=== PATIENT | female | born 1990 | race African-American/Black ===

== ENCOUNTER 2019-12-26 14:37 | Inpatient (IN) | payer OTHER ==
--- OUTSIDE RECORDS SUMMARY | 2019-12-26 14:46 | XMS ---
:1990 [facility] Care Team Providers Name Role Phone MD NIKI Unavailable Unavailable Ivett Adams Unavailable Unavailable Kit Adams Unavailable Unavailable Kit Adams Unavailable Unavailable Kit Adams Unavailable Unavailable Raegan COOL Unavailable Unavailable Re-disclosure Warning The records that you are about to access may contain information from federally- assisted alcohol or drug abuse programs. If such information is present, then the following federally mandated warning applies: This information has been disclosed to you from records protected by federal confidentiality rules (42 CFR part 2). The federal rules prohibit you from making any further disclosure of this information unless further disclosure is expressly permitted by the written consent of the person to whom it pertains or as otherwise permitted by 42 CFR part 2. A general authorization for the release of medical or other information is NOT sufficient for this purpose. The Federal rules restrict any use of the information to criminally investigate or prosecute any alcohol or drug abuse patient.The records that you are about to access may contain highly sensitive health information, the redisclosure of which is protected by Article 27-F of the [facility] Public Health law. If you continue you may haveaccess to information: Regarding HIV / AIDS; Provided by facilities licensed or operated by the [facility] Office of Mental Health; or Provided by the [facility] Office for People With Developmental Disabilities. If such information is present, then the following [facility] mandated warning applies: This information has been disclosed to you from confidential records which are protected by state law. State law prohibits you from making any further disclosure of this information without the specific written consent of the person to whom it pertains, or as otherwise permitted by law. Any unauthorized further disclosure in violation of state law may result in a fine or mcc sentence or both. A general authorization for the release of medical or other information is NOT sufficient authorization for further disclosure. Allergies and Adverse Reactions Type Description Substance Reaction Status Data Source(s ) Drug allergy No Known Allergies No Known Allergies [facility] Encounters Encounter Providers Location Date Indications Data Source(s ) Emergency Attender: 11/11/2019 [facility] th - ERAttender: Ivett 01:54:19 PM EDT [facility] PAAdmitter: - 11/11/2019 Leonardo CALVERT 06:26:00 PM EDT Patient discharged. Emergency Attender: Joe Carlin 11/10/2019 02:05:00 [facility] ERAdmitter: Joe 07:31:00 PM EDT Raegan COOL Patient discharged. Medications Medication Brand Start Product Dose Route Administrative Pharmacy [facility] Indications Reaction Description Data Name Date Form Instructions Instructions Source(s) Methocarbam Robaxi .0 Oral Nuv ance ol 750 MG n-750 2020 mg 750 mg, = 1 tab, Oral, TID, X 5 day(s), # 15 tab, 0 Refill(s), Pharmacy: [facility], 1 tab Oral TID,x5 day(s), 163, 11/11/19 14:54:00 EDT, Height/Length Measured, cm, 73.6, 11/11/19 14:54:00 EDT, Clinical Weight, kg Health - Oral Tablet oral 06:11: [place] Robaxin-750 tablet 00 PM Hospi [facility] oral tablet EDT Center Insurance Providers Payer name Policy type Policy ID Covered Covered green party's Policy P zita / Coverage green party ID relationship to [employer] ormation type nova BEACON [id number] SP [id number] METROPLUS BEACON [id number] SP [id number] METROPLUS COMM [id number] Self [id number] COMM [id number] Self [id number] Results ID Date Data Source [id number] 11/30/2019 06:14:00 AM EDT [facility] Name Value Range Interpretation Code Description Data Grace rce(s) Supporting Document(s ) SARS-CoV-2 [facility] RNA Resp Ql LAXMI+probe This lab was ordered by Fabian and sury rted by [facility]. ID Date Data Source [id number] 11/11/2019 05:45:00 PM EDT [facility] Patient Name: ABHINAV LESTER: [id number] Computed TomographyACCESSION EXAM DATE/TIME PROCEDURE ORDERING PROVIDER [id number] 11/11/2019 17:23 EDT CTA Chest Abdomen Ivett Adams PA-C Auth (Verified) Pelvis J.Reason For Exam(CTA Chest Abdomen Pelvis) Other (Add Reason to Special Instructions)ReportPROCEDURE: Computed Tomographic Angiography Chest With ContrastPROCEDURE: Computed Tomographic Angiography Abdomen and Pelvis With ContrastCLINICAL HISTORY: Chest Pain, S hortness of Breath, Lower Abdominal PainSCRIPT INFORMATION: CP, SOB, lower a bdominal painCOMPARISON: None.TECHNIQUE:Computed Tomographic Adelaida ography of the abdomen, pelvis and chest was performed with intravenous administratio n of contrast timed to maximum opacification of the aorta and its branches. Enteric c ontrast was not administered for this exam. Two dimensional as well as three dimensi onal reconstructions were performed.FINDINGS:CHEST VASCULATURE:The re is adequate enhancement of the pulmonary arterial tree without filling defect to suggest pulmonary embolism.The thoracic aorta is normal in course and caliber without evidence of dissection or aneurysm.ABDOMEN/PELVIS VASCULATUREThe a bdominal aorta is normal in caliber. There is no stenosis or significant atheroscleros is.The aortic branch vessels are patent. The common iliac, internal and external nehemiah c arteries are patent bilaterally.CTA CHEST:ROOT OF NECK:No abnormality detect ed.LUNGS/PLEURA:There is a 5 mm pulmonary nodule in the right upper lobe along the superior aspect of the major fissure on image 30. There are groundglass and reti culonodular opacities in the right upper lobe and right lower lobe. There is a 2 mm no dule in the right lower lobe on image 54.There is no pleural effusion or pneum othorax.TRACHEA/BRONCHI:The trachea and central bronchi are patent.LYMPH NODES:T here is no significant axillary, mediastinal or hilar lymphadenopathy.HEART/PERICARDI UM:The heart is normal in size. The pericardium is unremarkable.Coronary art isaac calcification: Absent.ESOPHAGUS:The esophagus is unremarkable.CTA ABDOMEN / PELVIS:LIVER:The liver is normal in size and contour.There is no enhancing mass ident ified and the portal vein is patent.BILIARY SYSTEM:There is no biliary ductal dilata tion. Gallbladder is unremarkable.SPLEEN/PANCREAS:The spleen is grossly unremarkable.The pancreas is grossly unremarkable.ADRENALS/KIDNEYS:Th e adrenals are unremarkable.The kidneys are unremarkable.BOWEL:There is no evidence for small bowel obstruction.There is no evidence for free intraperitoneal air.Th ere is a large amount retained stool throughout the large bowel. 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 Unremarkable CTA of the thoracic and abdominal aorta.2. Right upper lobe and right lower lobe pulmonary nodu les. Follow-up is advised as per Fleischner Society criteria.Fleischner Society Foll ow-Up Guidelines:Multiple solid pulmonary nodules with the largest nodule measurin g <6 mm:Low-risk patient (minimal or absent smoking history and no other known risk factors):No routine follow up.High-risk patient (history of smoking or other kno wn risk factors):Optional noncontrast chest CT at 12 month.Reference:Guidelines for Management of Incidental Pulmonary Nodules Detected on CT Images: From the Fleischn er Society 2017. Kalin AlMahon et al. Radiology 2017 284:1, 228-243.http://pubs.rsna.org/doi/abs/10. 1148/radiol.[email or web address]. Multiple groundglass opacities in the right upper lobe and ri ght lower lobe, nonspecific. Infectious etiology not excluded.4. Constipation.5. Postsurgical changes of the bowel.Thank you for allowing [facility] to participate in the evaluation of this patient. Final Dictated: Dimitrios Costa MD.11/11/19 17:31Signed: Dimitriso Costa MD 11/11/19 17:4 5Transcribed by: JULIANNA Name Value Range Interpretation Code Description Data Grace rce(s) Supporting Document(s ) ID Date Data Source [id number] 11/11/2019 04:23:00 PM EDT [facility] Patient Name: JAZMIN LESTERN: [id number] General DiagnosticACCESSION EXAM DATE/TIME PROCEDURE ORDERING PROVIDER [id number] 11/11/2019 16:17 EDT XR Chest Portable Ivett Adams PA-C (Verified) AbhijeetReason For Exam(XR Chest Portable) Chest PainReportPROCEDURE: Radiograph Portable Chest 1 ViewCLINICAL HISTORY: Chest PainSCRIPT INFORMATION: CXRCOMPARISON: None.TECHNIQUE:Anteropos terior radiographic view of the chest was performed.FINDINGS:The lungs are clear.T here is no evidence for pleural effusion.There is no evidence for pneumo thorax.The heart is unremarkable.The mediastinum and hilar soft tissues are u nremarkable.The bony thorax is unremarkable.IMPRESSION:Normal chest rad iograph.Thank you for allowing [facility] to participate in the evaluation of this patient. Final Dictated: Jose Luis Chino MD. 0 11/11/19 16:22Signed: Jose Luis Chino MD 11/11/19 16:23Transcribed by: YLNN Name Value Range Interpretation Code Description Data Grace rce(s) Supporting Document(s ) ID Date Data Source [id number] 11/17/2019 12:00:00 AM EDT [facility] [phone] Microbiology - Blood CulturesPROCEDURE: Culture,Blood RCE: Blood BODY SITE:COLLECTED DATE/TIME: 15:54 EDT RECEIVED DATE/TIME: 11/11/2019 20:45 EDTSTART DATE/TIME: 11/11/2019 20:45 EDT FREE TEXT SOURCE:ORDERING PHYSICIAN: Ivett EstradaFINAL REPORTSFinal Report []Reported Date/Time: 11/17/2019 00:00 ED TNo growth at 5 days.PRELIMINARY REPORTSPreliminary Report []Reported Date/Time: 11/16/2019 00:00 EDTNo growth at 4 days.Preliminary Report []Reported Date /Time: 11/15/2019 00:00 EDTNo growth at 3 days.Preliminary Report []Reported Date /Time: 11/14/2019 00:00 EDTNo growth at 2 days.Preliminary Report []Reported Date /Time: 11/13/2019 00:00 EDTNo growth at 1 day.Preliminary Report []Reported Date/ Time: 11/12/2019 16:01 EDTBlood culture incubating < or = 24 hours; negative to date Name Value Range Interpretation Code Description Data Grace rce(s) Supporting Document(s ) ID Date Data Source [id number] 11/11/2019 04:17:00 PM EDT [facility] Name Value Range Interpretation Description Data Sup porting Code Source(s) Document(s ) Lactic 0.8 0.9-2.0 LO [place] Acid Lvl mmol/L [facility] ID Date Data Source [id number] 11/11/2019 04:25:00 PM EDT [facility] UA Microscopic added by Discern joshua Dawson to an Abnormal Macroscopic Result. Name Value Range Interpretation Description Data Sup porting Code Source(s) Document(s ) UA WBC None Seen NO [facility] UA RBC None Seen NO [facility] UA Bacteria None Seen AB [facility] UA Epithelial None Seen NO [facility] ID Date Data Source [id number] 11/11/2019 04:11:00 PM EDT [facility] Name Value Range Interpretation Description Data Sup porting Code Source(s) Document(s ) U Amph Not Detected NO [facility] Substance of abuse cutoff levels:Ampheta mine...........................1000 mA/minBarbiturate....................... .....300 mA/minBenzodiazepine.................... .....200 mA/minCannibinoid....................... ......50 mA/minCocaine........................... .....300 mA/minOpiates........................... .....300 mA/minPhencyclidine (PCP).....................25 mA/minMetha done..............................300 mA/minPropoxypene....................... .....300 mA/minPlease note: This is a urine screening test only.Positive results are presumptive and are not confirmed by a secondary method. Unconfirmed screening results are to be used only for medical purposes.Result created by vocaltap rule. U Kim Scr Not Detected NO [facility] Result created by vocaltap rule. U Benzodia Scr Not Detected NA [facility] Result created by vocaltap rule. U Cannab Scr Not Detected NO [facility] Result created by vocaltap rule. U Cocaine Scr Not Detected NO [facility] Result created by vocaltap rule. U Opiate Scr Not Detected NO [facility] This Opiate assay does NOT detect the se mi-synthetic opioids Oxycontin, Oxycodone, Percodan, or Percocet.Result created by vocaltap rule. U Phencyclidine Not Detected NO [facility] Result created by Discern rule. U Propoxyphene Not Detected NA [facility] Result created by Discern rule. U Methadone Not Detected NA [facility] Result created by Discern rule. ID Date Data Source [id number] 11/11/2019 04:05:00 PM EDT [facility] Name Value Range Interpretation Description Data Sup porting Code Source(s) Document(s ) UA Color Yellow NO [facility] UA Appear Clear AB [facility] UA pH 5.0-8.0 NO [facility] UA Spec Grav 1.024 1.005-1.030 NO [facility] UA Glucose Negative NO [facility] UA Ketones Negative NO [facility] UA Urobilinogen 0.2-1.0 NO [facility] UA Bili Negative NO [facility] UA Blood Negative NO [facility] UA Protein Negative NO [facility] UA Nitrite Negative NO [facility] UA Leuk Est Negative NO [facility] ID Date Data Source [id number] 11/11/2019 04:04:00 PM EDT [facility] Name Value Range Interpretation Code Description Data Grace rce(s) Supporting Document(s ) U beta Negative NO [facility] Internal QC is Valid. ID Date Data Source [id number] 11/17/2019 12:00:00 AM EDT [facility] [phone] Microbiology - Blood CulturesPROCEDURE: Culture,Blood RCE: Blood BODY SITE:COLLECTED DATE/TIME: 15:49 EDT RECEIVED DATE/TIME: 11/11/2019 20:45 EDTSTART DATE/TIME: 11/11/2019 20:45 EDT FREE TEXT SOURCE:ORDERING PHYSICIAN: Ivett EstrdaaFINAL REPORTSFinal Report []Reported Date/Time: 11/17/2019 00:00 ED TNo growth at 5 days.PRELIMINARY REPORTSPreliminary Report []Reported Date/Time: 11/16/2019 00:00 EDTNo growth at 4 days.Preliminary Report []Reported Date /Time: 11/15/2019 00:00 EDTNo growth at 3 days.Preliminary Report []Reported Date /Time: 11/14/2019 00:00 EDTNo growth at 2 days.Preliminary Report []Reported Date /Time: 11/13/2019 00:00 EDTNo growth at 1 day.Preliminary Report []Reported Date/ Time: 11/12/2019 16:01 EDTBlood culture incubating < or = 24 hours; negative to date Name Value Range Interpretation Code Description Data Grace rce(s) Supporting Document(s ) ID Date Data Source [id number] 11/11/2019 04:51:00 PM EDT [facility] Name Value Range Interpretation Code Description Data Grace rce(s) Supporting Document(s ) BNP 28 pg/mL 1-99 NO [facility] ID Date Data Source [id number] 11/11/2019 04:27:00 PM EDT [facility] Name Value Range Interpretation Code Description Data Grace rce(s) Supporting Document(s ) INR 1.2 ratio 0.8-1.2 NO [facility] Please note new reference range effectiv e 2019Indications INRProphylaxis of nieves ous thromo-embolism: Non-hip surgery...............................1. 5 - 2.5 Hip surgery................................. ..2.0 - 3.0Deep Vein Thrombosis or Pulmonary Embolism........2.0 - 3.0Prevention of s ystemic embolism in valvular heart disease, tissue prosthetic heart valvesor acute IN.......................................2.0 - 3.5Prevention of embolism in mechanical heartvalves or recurrent systemic embolism.............3.0 - 4.5 PT 13.4 second(s) 10.2-12.9 [facility] Please note new reference range effectiv e 2019 ID Date Data Source [id number] 11/11/2019 04:23:00 PM EDT [facility] Name Value Range Interpretation Description Data Sup porting Code Source(s) Document(s ) Troponin- <0.01 0.02-0.05 [place] I ng/mL [facility] ID Date Data Source [id number] 11/11/2019 04:17:00 PM EDT [facility] Name Value Range Interpretation Description Data Sup porting Code Source(s) Document(s ) Glucose Lvl 94 mg/dL 65-99 [facility] BUN 11.0 7.0-21.0 NO [place] mg/dL [facility] Creatinine 0.63 0.40-1.0 NO [place] mg/dL 0 [facility] BUN/Creat 17.5 7.0-29.0 NO [place] Ratio ratio [facility] Sodium Lvl 134 136-146 [place] mmol/L [facility] Potassium Lvl 5.0 3.5-5.1 NO [place] mmol/L [facility] Chloride 97 98-109 [place] mmol/L [facility] CO2 28 17-33 [place] mmol/L [facility] AGAP 9 5-15 NO [facility] Calcium Lvl 8.5 8.3-10.2 NO [place] mg/dL [facility] Total Protein 7.0 6.0-8.3 NO [place] gm/dL [facility] Albumin Lvl 3.4 3.7-5.3 [place] gm/dL [facility] Glob 3.6 2.0-4.5 NO [place] gm/dL [facility] A/G Ratio 0.9 1.0-2.2 [place] ratio [facility] Bili Total 0.3 0.4-1.1 [place] mg/dL [facility] Alk Phos 71 IU/L 30-125 [facility] AST 22 IU/L 10-35 NO [facility] ALT 21 IU/L 7-35 [facility] ID Date Data Source [id number] 11/11/2019 04:17:00 PM EDT [facility] Added by Discern Rule [id number] Name Value Range Interpretation Code Description Data Grace rce(s) Supporting Document(s ) eGFR-AA >90 >=60 [facility] mL/min/[address] The MDRD 4-Variable IDMS traceable Equat ion for non- individuals is used to calculate the estimated glomerul ar filtration rate (GFR). To estimate the GFR for Americans, multiply the Devunity ided GFR result by 1.16. The MDRD 4-Variable IDMS traceable Equation is validated in individuals 18 years of age or older. It is less accurate in patients with extremes of muscle mass, restriction of dietary protein, ingestion of creatine, extra-re nal metabolism of creatinine, or treatment with medications that affect renal tubul ar creatinine secretion.GFR Categories in Chronic Kidney Disease (CKD)GFR Category : GFR (mL/min/1.73 m2): Interpretation: G1 90 or greater Normal or high* G2 60-89 Mild decrease*G3a 45-59 Mild to moderate [id number] 30-44 Moderate to severe decreaseG4 15-29 Severe decreaseG5 14 or less Kidney failure eGFR-LAXMI >90 mL/min/1.73m2 >=60 NO [facility] The MDRD 4-Variable IDMS traceable Equat ion for non- individuals is used to calculate the estimated glomerul ar filtration rate (GFR). To estimate the GFR for Americans, multiply the prov ided GFR result by 1.16. The MDRD 4-Variable IDMS traceable Equation is validated in individuals 18 years of age or older. It is less accurate in patients with extremes of muscle mass, restriction of dietary protein, ingestion of creatine, extra-re nal metabolism of creatinine, or treatment with medications that affect renal tubul ar creatinine secretion.GFR Categories in Chronic Kidney Disease (CKD)GFR Category : GFR (mL/min/1.73 m2): Interpretation: G1 90 or greater Normal or high* G2 60-89 Mild decrease*G3a 45-59 Mild to moderate [id number] 30-44 Moderate to severe decreaseG4 15-29 Severe decreaseG5 14 or less Kidney failure ID Date Data Source [id number] 11/11/2019 04:09:00 PM EDT [facility] Name Value Range Interpretation Description Data Sup porting Code Source(s) Document(s ) Neut Auto 43.2 % 40.0-70.0 [facility] Lymph Auto 46.2 % 22.0-44.0 HI [facility] [place] Auto 7.8 % 4.0-11.0 NO [facility] Eos Auto 2.5 % 0.0-8.0 NO [facility] Baso Auto 0.3 % 0.0-3.0 NO [facility] Neut 2.1 1.8-7.7 NO [place] Absolute x10(3)/Health system Lymph 2.2 1.0-4.8 NO [place] Absolute x10(3)/[facility] system [place] 0.4 0.2-1.2 NO [place] Absolute x10(3)/Health system Eos Absolute 0.1 0.0-0.9 [place] x10(3)/Health system Baso 0.0 0.0-0.3 NO [place] Absolute x10(3)/Health system ID Date Data Source [id number] 11/11/2019 04:09:00 PM EDT [facility] Name Value Range Interpretation Description Data Sup porting Code Source(s) Document(s ) WBC 4.8 4.5-11.0 [place] x10(3)/Health system RBC 3.23 4.00-5.20 LO [facility] x10(6)/Health system Hgb 9.8 gm/dL 12.0-16.0 [facility] Hct 29.3 % 36.0-46.0 [facility] MCV 91 fL 80-100 NO [facility] MCH 30.5 pg 26.0-34.0 [facility] MCHC 33.5 31.0-37.0 NO [facility] gm/dL [facility] RDW 15.1 % 11.5-14.5 [facility] Platelet 342 150-350 NO [facility] x10(3)/Health system MPV 7.0 fL 7.4-10.4 [facility] ID Date Data Source [id number] 11/11/2019 04:09:00 PM EDT [facility] Patient Name: JAZMIN LESTERN: [id number] UltrasoundACCESSION EX AM DATE/TIME PROCEDURE ORDERING PROVIDER [id number] 11/11/2019 16:07 EDT US Venous Doppler Ivett Adams PA-C Auth (Verified) Lower Ext RAMESH J.Reason For Exam(US Veno us Doppler Lower Ext RAMESH) Swelling EdemaReportPROCEDURE: Ultrasound Duplex Scan of Lower Extremity Veins BilateralCLINICAL HISTORY: Bilateral Le g Pain and Swelling since 2 amSCRIPT INFORMATION: bilateral lower extremity v enous dopplerCOMPARISON: None.TECHNIQUE:Ultrasound evaluation two -dimensional imaging with graded compression and Doppler analysis and color flow Dopp ler imaging was performed on the deep veins of the bilateral lower extremities to in clude the common femoral (including saphenofemoral junction), femoral, popli teal, and calf veins.FINDINGS:Normal color flow, waveform pattern and compressibili ty are identified on voss scale and color Doppler interrogation. There is no evide nce for intraluminal thrombus. 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 to participate in the evaluation of this patient. Final Dictated: Matti COOL, Jose Luis Ortega 0 11/11/19 16:08Signed: Jose Luis Chino MD 11/11/19 16:09Transcribed by: DMK Name Value Range Interpretation Code Description Data Grace rce(s) Supporting Document(s ) ID Date Data Source [id number] 11/11/2019 03:34:00 PM EDT [facility] Name Value Range Interpretation Code Description Data Grace rce(s) Supporting Document(s ) [facility] PBt2oCvOZKsPru8R [facility] lWD0chmf7IE8QAB Center 9ebNguSbu0 MjIvRmlsd GIvD6AhARB jWTXem7Dd Pc6mvWSvCD 2HwMbryO2 vPU+SnXXfn +DP9YUMkq faU5tc8sTZ gYyZaWHED nOSYOv57MY NEN+eylgR rFyjZi8y9V f/32TVh0S 27ayKzMiod f63P/wXf/ wT7I3a1H6/ /k9/+Ms// uG//UP6+V/ +8Bf/ZfpZ n2f8/PFfbo /087z/Sz9 dxR3857l0+ ePf/+E//q f//N/9/PU/ +altYu3p5 f6TP/4v17M 8n3Rdn/kX Og7BmvHmk/ 16uy05etr h4xH3fjZ+Z //gb//qr/ /ALPHONSE/7jf/CEMENTING MACHINE OPERATOR /tOff/jXf /k3/4B9e2q flI/vX/13 f/UPf/6zn3 /6V//wz4U m6qFmhDC3e 7r6UOpp+S nPz//1v//b Pxf/uv+Xf /f3//xPf8c +taxPy+zz 587qWv/R3/ 2v/0485vM pckrvOf+Pf /b2lpa8qy 11qebyN//9 z587z+vwD /7Fv/g3/8e //nc//9HP TLN67d0zJb Hx/s2/+fs /d1LX4y//0 PUMP ASSEMBLER/zCm1Zq Nhf6///ucf /qu/+7f/7 uef/research program manager/+V/ /tCqM1Z4/ 9y/+1Z+Ldj 3+6m//+A/ +yV//7f/wl //sb/+rv9 5t2px3yApa /dTbxx1PL 64//+cf/CT q+vT88/d/ GN465pb+0x /+osk2qKH X3f/NrwGff /Is7Xy+pv V5x/n+fN2/ ysX88e39N zY1QKtF0/9 h8MVKFwlT JYQxOTzzUz U6sCgfjOk GGPZHtc8gV qyla1MFD6 EIZ3Z4/zPZ fMxk8vk7e jBmh/SpiR2 MyWHOT+MQ WAIqv2VNhF yq0tvlPDU 7PHsUkYMxO YzxyRwCzA 5VvwWYHdKn cQgwOfSp3 eNRZp0o0N4 RzUW/A5gd pz9b7PEMNn +twCdgyOb 8kN2iisdWM oMDgMmhzs /krwBmh/55 OASYHcon8 4mQm7D7QPC DlgNEve3T RRqJ90ZiE6 Q4XVtreTB S11XKJm2ID l2/BZgdyq fwkAezw/tA qlJQ1FB+Z /B4BLND/Uw OAWaHvJ/j 5GBMDs/6ZA 4BZof+KTw syyrPWi1Vb NnhfQSzfe M15/dhM8nu gV8CzvOsL +RPZvtGMs8 v76NHOure FXYwZofykQ MU/Qbvg2Z 2psyEb9x8B 46QVAn3fN IyiuG30J/h ZWHi8GCBr J3ltmlepfD A7FA+s7GD MTuk/f+Tgz H2pNltTrr A3DJ3ARpqp j6FZCxtPV 0N0xebrv5Z MDvU/R9yM BzB5ElAmig mtzaLTx6s dngzNIcAs0 P+xJ2KIAO 7PafZU1AUe T+n2fY0l8 SddN9iQ8v5 gskhvbmZ7 VSdfuf9OYp Vg3uGcSzf vUVy3hK+iQ y0mZ8rga6 LYx5qT36M8 MSLp269rZ Bmh/aZmR2M 1qUckht3U VcZz8XM5XF VNBh1YE2M Uuz42gSAbK md3wteHHD 5vA8Z+RZgd mf39fmDgg fM5UhG9mTa 7+LeYD044 PrYk7B05Dq Ravhx1mXM IDxA6gKlgF Q6s0P/JA4 QJbl8B7O5H 5yqM6PTpx KTy0jcYuPy 7OUlnm6tf /fgWk2cazh XmokDgNmh nfgqRVZ1UQ 4AZodHvwG ZXJF33bPCG 0qSfj4LrS 55rwXJwZgc 3zYP8nHwy uifyqMRzA4 qBoTgXA6j 9D2igVw/EG SdzW06w7S X3bOyPmP7E LPDO/fgEO Dr8C69+Shazia yfwmZTo+k MxFvgCQzM9 s8EtNDxB8 8CHTV7F4uC xgVKjgY7S ZQtgc2Gssh zUiY/8MOj QWoOTC6LSe vwmYrJuu8 N8h6halQMy 2qXRoIJmz uO0X18x7Ln C+ygNNqwP tqziw/186O HFPWfig00 TFn1hSp1xo exbfWCO1n oh0awUHn4r GZ0EduH7u xQqc3U8B33 q4Dmeau5e +7/t2thtLT DLbNOmaDc t978Uhuu4l cbg46OuMZ LK8CRcvL2R smnjNhmRe y5Y2fCiMGT 2aesxAMjc 0wcYHgUn2d OyJ4AJwHW DEUC45wbbF aW8IQOiue Kv446q9fi3 WGccMJPP7 jCDrJjLaIu Jolene/5nSu 4w4kmeuCe6 15jXesmMv b6bDcGUwZo Au+aDa95Z m0iGkAv1nI bEtp35UfL 1/w+cgcNYS OXn1n4hHu 9Qcsf0ZELw jS/ZkO6+d 5l67Pwz1MX ek2SroI4u Y2lLHlppox WobgOYHYo f6IIWgmmMG XZxoBml1V xNwCpZZ9CP jXXAcwOVb 7FyC1jNvMZ ulYHRe7BV HYou+pGDsb n3JMkfRfy naayfSOZq1 Esvx3AQlN KOxrCcO850 Y/tF3k5fh Dw40XoZXUN xrAnm0hjb +RgzA5W+yQ VO7EaXt3O mB2s/koOxu it5OdEZY1 9+5+UsIzZI ja5MTJR68 mTHIzZwSrZ 5GBMDu/Kr YI5BBRMEsF SpQxlxn75 kYYdT5nTFz daJdn6Ezg hN0FYSBXRc Xgj5n68mU MxpefHJjA3 N4ZPhmp1v YSQz5YZioT 7LPkWzuSQ 3rgR8M2T0O M1SZDF2FG ecjDmGcyef dIMZiOby5 8hm28CRTmu Fd7O4OJ1n D5qeRjk9GE 4WnHDln4d QoqRz3NV/M lYfZasb52 CeE964BNBN 3bo+i3A7G VQV9Ij7owj 6y2KRjwlW QTHS1cedKt 5GJNDf/Hungarian 9coT0cLZbT HwjS50R0K JwZgdbBFLD pip1I1dCk 9IMDvYQpoc jNnhnYKwf YEUol9aN7F mY3Yo+h3A 7LCrCWTfyO et5mATQvi yvvt5TUIRp A6ubHplB7 JkN6a5+WMF kAg7N3KL2 WUpcjBmBys ZjUHsW0ar YfOFP042VK mKVh/G7FB 9tA6zyUhXF mPkYEwO+d FvAWYHK8+R dnD4EU9TZ ZfpGrP0EZV DSfotwOxQ n1XSVLrVgA ce0CSK27N fC8bkqNeWD lZsJQdjdm h20GcNatyx XL5zVCuBe 01R01URzRE mZqosL5pq lfgTR97eSq iPvRSF5nw X2XXavwEyW lpkE68Y8q A5clW3v7sm 3mbU5YGJH sJJPgBC0Qn OUysBzuyg tQBndtBqgD Ov2L/qAeu 7ILC+KgLru nIwzblC97 2rBtrLNs3B Hg5UJtR5M lj7K8KX58s 27BaAYo4d 4sDuJ+Fv4c mERn1iNgu kYNpio6SQq Mhex9EEcZ 6rOzIhu6AR uIdhtF4Mw P5tQmDgq2X LnNlBKwbO 8WZeVaIdd6 ZMnBuF5ty C9NO5jsIUT xo3kXKAuG 28r8NKQ3yZ oWsBwZkdt KWjqG3xZHQ ch4UUIPm3 0AKCMztoAc IAStLZ8Qu OUwsIzuygB QRndtACgj M0EV0zBPJA LlKe7FWSO V4kLPEM1FK 3RwsIzuyg BQRndpACAp DMSQsIzuy gBQRndtACg wC5bJMRfT pyRgIo5QTT OG4gyTVCD 3IoWkBwZgc tIDizgxYQ tRyJAteK0R D1yFGLLyp AcGaHIUtvZ 3bQAoIzOT QtIDizgxYQ nNlBCwjO5 RC2yTSJLcs AcGYHLSA4 l3OUgdTfdg EFBCCbtYD gmC6aBNScn ykFBCCbtY YhvP7dKGEb Bm4wKYHF2 gKCMztoAcG BSuZW6Qus +jFURVf35G KCMztoAcG SEfMX2NgOO QsIzuygBQ RndtACgjM5 QU4nSJYQG nRg8KZKVN3 kvOZSG6Zw WkBwZgctID izgxQQgGS uWkBwZgctI DizgxQQgG zWAoIzOTQt IDizgxQQg GzWAoIzOXQ tIDizgxYQ jCbDKpyE0N AFBGdyGFp YjLAVYDO3c 4MWEJzJYW oBwZkdtIDg jC3jMNBoE g1gQEEM6eO CMztoAcGZ SjQQ5Hgdmn VNEPa88JC CMztoAcGZH wNX5IwXKZ oIQDZrAcGZ KtPI4XkLp OwSE2dhWFZ ndtACgjM7 SAEBSOaiBQ RndtACgjM 7DCkgOLODF hCcyaFqAc GHMqOD7AtW WkBwJoemB QRndtACwr/ XLPEmvfm8 0/38pzY2a3 35TpHu0N3 HmyjvmHmHz P/7N1F+ew jp4fsudc74 7tn2W53i/ P+16/7Xjvf fus1/6/X+ maS93m4nFz uMf+3u/bW /9rce19/7S 3/t7fy1r/ LXrsZfegp/ 9om0wYtta 162/2A/2S9 kQr40SzDV /f/f1xWZq3 EvXT6/dNr 8B/tdfuk6+ c7s03hms0 80Zk6qF/h1 t//Xnfbfd rl/32H+dX/ 6868PP8x1 f91V/HVH7z +8n/b7bta vO0m/7uL8u oPy6/7Fr3 rUw8ufn97x /1q3/rVq/ HxP4kc37l+ 1yl/rhL/U 9S4ziE1dek c8EtEsOyg XisivFYlfq wG/rsR/XQ X/udt4SNN5 6+av77DPs 9pBU4s1i47 5f53x/v+Y bdqg+Pemmt /o3hgj88l D/teH6++Pt t8eK7/c0r /yMH5W2q5T 0q8/I72qn vO7An+v+n/ xRxNPSPZV /qdsx6oe6o 95Dp0Zpcl eb7vHz/Jgh keOtf7gUy ut/vNgUrqb XGogMv6b/ J3ODaCW0Ft FizJQ2D2F iexDgJ01tk 2Oa987UMc SBGM3161TO MLQ9lBwHN qw5kfoe/bm sjz1mCgZj JiUE0rv14I Jd5Dxtbtc 3lUhHEKzCq 049I5ZcXl 7AfHFjM/aK 0iu8lCA3d R5F0KvmP94 ik71EoZNf hjCfeD0IwT 9sEeyJsi2 pks8Kkn85a MEepzAXeT qA/T6Tr1E3 uPZQuBFK/ TJaJ52fnks DS2ssd02C 75J7oiJkBz e0RrwZDx/ b29/vLjLgb sIvKnscvT btLZggG0z7 uGpU35Lki s1cVySViKy pVv/6L41n aD1kLimLs7 p0+Pv7GdU 8haJ3GMfBP +b/sWdieM UcdcySbj6w eKLVmzBmM 90z77VlK9G 8q6q7Iop4 tvzWTQqmm2 jsE4gbc4h +fS7fqDv1v l3BitikT5 rSsKh1EEzS 189UzDjvi ax4ukqqIDK XS98hvBp1 SwZuxfHOux nFqdKZD2w sgP2fxZjIo HhybgyOU/ hlAVU4NewI NKq6nbK8U Va0oAFSJiA zhXRk92y1 ZP/eU3frGu ThgZSl27g hyZ3e36koE uHVTIz2AO tHJzNWw2m3 Yrf23Y94l JKtud/fLE8 LTwQcOu5g K2hqAv5UcQ iu7PSon+l zNCWFmJ4Q1 Tf53+xvSw strb2lGNNb gpQfLREmL H3zAYEErpD 1Te13aejO sIagQJTvxn jlBRKo4Wo kw4cDvulsq AG9tlDuwU nVbv3S+Osu ai6mAwFU0 Il03Q0TpsL TPOgyL+xB 9ISBx3OJCw y6e3RckLf dZr5DED1Oa ZshD0dbo9 X/I3fd/phK 8yEdzJftE ADA5OH7AE4 5e6OBGatZ i3bf4JofEB OWphLh6Lf FrVoeQKZ8e upD58kIeT kuPewkaDs3 fMXbXXn+e rFWcTZAoXz wkZcQfHwR FjbU8nZRIu MICHAELA/Fi1kWL U/DR108CeF ysDxYq/m9 UmU4av8yGi UJUvIBXH1 ZvSUrXZ5qu z5z9Uc7F8 r2UK/mmiBP Bkgm8Vxht D/J/W80hTB l1Ev/Se1J cwzNjTXtND VfWEvoumu EL8iacS388 o+yiAMaCp jtvSDGP33N 0r9pYrDkL uGPuxZbuAH 2xY/gmEO6 F3K5f0t5XK 96T8vShjP Tdseb6fgqi fJlu3mKl6 hhTsDRaC1f M0e40s0Qc PZTTTcpeuC Gh50T9Wfk H/ItjinVlw m5AUx63d8 S3zkZ9Mg4i zRjtv4fxg KyExas7ajW h9kg8y3Ir mXS/q67Og3 JyHREHOCO KfcxZTn4yO 3MD31SCJp 2vTrxz5RYO 97D1ExEOt fsPmyUeD46 aZyGVXudJ gdqDZOrOL6 FjFFio6Ah 2M0oGnSUPS lj+zuYJmy JOYEniXJtg kfjC7TpK6 yDMESgwdcE zTLvmb2fC Mti4fxvUBq c28ZoMmrA qgpkmRi/We +/uetRL8T PeIzT2Rf/W 26zpUP2HI /tFhEAOUbF ZFFIs70gl q/0KSbnPjN YiSGDNgq0 Z3gCvjHeRW y7QimSIVw o8IRup5dMi xdbOIzDe3 v35d32z0Pu QJ+FAHr2Y l3Z0ZhqKlb 2L6O3JUIG 66iGCmB4Uz /f5A/3F3A TLus/3Fy2Q e6Lh6FMUc JpXqq/Vkml O31gLgr9t rYJlCTbMiW xv7sU+BGe 82yrDs3k+0 elPpLrAXA AXDYKJ6hQh Px4w0mZim Sa0dFI00KQ WfTRFSsWB T2GaqHWxTi 5sY4Uu7e/ a8uGO4tXmp n/4I6RVPD 9i8i2NMGRP +6VBv+WLq 4sM8k8MaiU 4Ws14yOeM fXzPqkJn21 VVwTHvDfD ijpXWeS1j2 5gM9q3f9X tBZgK1MO2j D9FnnjP77 4uZYjaUJSN oL6PCtW1d chlJEg455E lCj0m8RFu ynbQpQCd4S 1fU2vCGJ5 Cjbt+gMbc7 H1+aUPTZR aVdECp+hsM X6usTG7bT nchF7DoM8U kVoQaBxl2 JtvyuXPH5j QuFHJPweH C8TcuBv9/5 vmgpJ1vMd ltJWvekB4d k1uXOu+z/ GJic7zwfwT h8Wdeq54N rUEj10Z+Lopes PxukAfbV2 jcNc6+1onG qbcGxthb2 QZ0NWnQ8Ql J5c2l3uoG x3FbN4T24Y 7ulHj/LjR e4zfoelLYn 4exAyXUfM WMDTV0qIku XL//rUWw0 RJu/99ZcHZ ypht/b0xW FrSi7c0tBj 8n0Zchw7/ js74+DVyLz qHE+hSfLR ruFK3eC5vS +zJXAb2P0 o/IvY6hR/E KunHM6R0R RROhdX5kM1 Istdd2Sob qrZ1JJjJeb +XraLFADc t9dC13wRPe hbWHaBVjn 4SK3gayCi4 syKwXvehr d+GLSJo7Be 4xVXGiqK6 drOOThDKOZ OzQUb5PQW eXOhroC2e2 +sobD1sys du/X6JlG7b 3WzRWwqaO 2ZPScm0eXe fzNE7ObSS pyIBbXz21F GV2rqYTfl y29fh+ac3I VGYgAhJ3d /4jsXrtb0i rWUJ9Kxh2 WHFcEybbb+ Q2g5LAYR3 60/MQIwx2S aletKzaIL /7YmmCfOCE NtdrtKzaI Bh79biYGyc WT0gsgbBZ zGdEs1TjMd bwr4WZ9ed RG7plf3JYT 8YN12v66w V0yD6+mIUs i65vl7kEh taitzOde10 PhzimWzZr cEPg8JFaae ZtedHSasf RmQl5WHprw F4Ux1/zup gm+TbsEV+s XVDi+FshF wmzcucik7Y 0BAsfqmug /oYe9dFhW4 wd8q5blm1 r4IDWa3A7Y jE5OLwSV7 fzz9K3A5dn GYLO7qdvE C5h2YnnyXo fHqw8K6MF o/4g303Xle TvNXA92Sj SOlE406jtz DJXZFZLRf jzfTk1F6eS t7ZjYxhcj xOqy0vKE9g 2DPTEarhV 5COxbrFHJF anTPWuFys sgFL3kmGNl 5CaLT6wcW bES5r11Mab iyAXmFeKQ TPwEq5wJDN XHylHHJsL 75bLIejLVf g15UvMgUC TCVu5Qcy9k aVF3fS0j/ leqgy+WsVR H2AwHbYs9 oI7L49yyjt 1OebGxrKY WmXqtLTeGg WZjYtOtX1 op3a/PFMFC 1+EbyM8xB +1HO1O4AAw iN0yAx1vm VIvlinOLQv 1Uh8ArTLx Mu7KU3a2+o 5GTF0iFIf HAq5ofKR1D Y60+IxnlH 1ZF794Ptm4 X2BOhk6Ov hpnRpzARaN s5TN0WRDS caN8dQ58P/ TKNPgWWbF JCKwJT3pLc H8yVocMl6 o7ras3+0r1 rN0CyPIxU gYN6EcL+8D ZWKqafbl6 uH/5DyoIbF 4C0NcBklD SLniMWtVmc x1q71/HG1 25P8WYteAL 5z25G0teU Pt9GG/2cId HU/+52F6R ak+8GmvLYy /mBs5JDRm RKi37HNfcI 19O0grqOU rWZmsdR0UW pziXpPZKt rl7gUMc9Rg Kng/99Dri ndPviHcuB9 oCj1zbiL5 tjPUl7oR5g uyG+tjtCH f9yTUXCjrB N+elXItyo wdiCNKdDqf b7ENzajyr XYCbMKkI06 dXt5mfCnN reHv7jnyYC 0hapLLLd3 imelaUdItj llNZEepw6 +I+hGYVXFT j6nr1zsrZ XfprorlF6A 0w2Cr3EOq 762mD3xpqj X89aWDabh LPp8jL+cash manager bq6YsSlFN Nuds3QbS4/ gTtS2IdGC yDbvcFuEvz bcLJ0oysM vcRO1gVwW8 mjf6cSHgu Jpp1BIAbrX mAnugMk9i Nny3G7fv+6 5aGq1EYc9 ZylBOEgH58 Qq0GoN/cJ 3dSGCBPmI3 T9WEj9sym Ete2bgQ0n1 nujHqdGRh Au6KXM75F1 uWp/OAE9V 4jKcT6mZJJ duXDdJpdQ idbfgzLdXO u4UqeYmce oEx0twoSG3 11TrR02Mb 7hShiIvhy0 CfKi7SEKu sPeIPdzDme 6LDVZFB1N PRx5GebEzE SHfT9qirw ArRl9LM6+N 5M0D60XnH 3XNYwiuxKE RPwVegt0Y TlrN9vdO2c s9CQpVr+f zizA/Ec3mW FpEWtMT7S Z2gRySPeAT 08kJ6HR9r jl9A5kBY9n /6aR2Uc4S 54fPEn7Tey Kb1pnVbxY JcedmdEsxd 0OjIG65V4 vRMHU/XZBW tCWpaXz48 dcU61FvNNl YlgL6jVaE RESHkJls7o NFsfIUKqN e1acwXuML6 MU0d0vlcn x85AimNQ+f 3wG10yqL7 f9fSAMcrPL kKVTuNIHJ 6gFNN8AtiM QxJaxpP0P 7n8A3ydWxC e3dqE5cdS yu5wzwDgEr 3jH0mdVHT T8yXhzaYVD erEp1D3CK X58kNHAIxN K7YbDONpC byj0ni3fve d/v1K6d76 3qmxr9s5FR UyLbDmi0r o37vMkhYtn CucjqQ/43 86RuVSxDP3 Zk9+Rqe1j 8Kwnh5wb0+ bEaF2Qrmh nr8bwYF3Cr G3CS4aY+f uni/VZe5t7 of2hPVwP5 FEPVtIv1mL jXlxzbxBj jJcc+8eHea W2p0UtAv0 cLuABWF4dO hXX7GCRai DxPSpFl+GZ ah2/kBfLm wYmglEjkSF qlfmQqXWo b1qVaIdgNb q/l0LZ71m bPoOODSY54 APhrv0Iuo y8DuU86bKw InmlH9v5y GUfar5e8kT fXpcytWZs YtlHc1ymeq H7QkuiW2B 9/1uHK0+9y EbABm9HyA v2IDi6S9el +2CFv62Ag k/A0Hq3b6n RqHfZercM y89qMte2Sg xrS5nLuPY 0oz95LjbYD LaY0d1Tr4 go1jV7trm3 Nk0+/nsYt C1qVqkwR6N n4fIk8Crh fms6IunDia bdyJuXEQ7 QPL5bRZvW8 sbq5Phv7V 1rls85S/U8 f1+FMTYmb 3P3xOkLTRO 1oKr8VkwL kfL2iXeeRC 0tH7JMsKp VtIH/jmHnw OrfWePPo8 Us1kNdoMj/ 6Fagcu8Bv VovXjw5/uc +qvPilqdr yLsQzf6sxd GwS1nInvn NyDbXRi4b0 O5iTluAVp 4zyx5sFsPV ReuvsLxZN QQmFfq+THO sYu4QveQ/ o+GIuS/1bU e5T/SdP++ vkcnqqaPuK cmVdUec+X MJq95piXh3 fyXEmwcXz 6IJtdj7M/D v4htCohYo FUli4S2WEB rgr2Xtti9 +4oQGMOfMI oJaVU2qiH w8Yc+enTUv x/tBhfhsq NTSCnTuooR OMuXRlvqF y7Xht48ak2 nDHvgozGs WB7fuvAMbw abM/tNWUP zK62ArCC9v mJ3hqboaD yOtur5+sWL uZ7kQvbzU zE7oMLwxu6 GacdJe38p H3x/afO7BE 2/TX0dNpw 2YvLp6Px95 oReiWJv2l A+2W0Z+zL7 v/yHuN8Ih YBMxHiE44e S857qw+p8 +vH9yWBm3Q R4RA6yRSL 7q4Hl+o7M5 Ra+rCp61d wHlM1nVvuv kUb14I1g4 z3GV81nyUH rmyVxB3+y fP4Rn9mGY2 RLuzv40nf Q04nL+4H1P pNiOn+20w pJHqz5tN1H G/bNY3dn/ GGSndB/GMN 7kMO1489u y6mAs/lduK r2ki7QazP s81OAcd5Ej 4dnQeI0d0 dDjRKwGbOa X9XbP60Qz VB08e+xMJ1 rfsMo3GA0 pPkdDxROgp EttlHs2SU XgE3ZdSiW9 zlVMKE3de jbwsCbZnTe g9R0I/LK8 W1yvO6G6ie BC+W06Hcs 60fUba4BWY cfJUtpdI6 V4kfFZi4/c uXf3bdY+6 RkI/TCz623 wiIAu9Fsj 1d8c2enOW6 N4+vGLrTT B7w4OZw1FJ 1kwUMkVY3 Z6aCi54Gqd hRu/lbe5T mdZ78dTtnx w0ZjwWvFT lflq6Q4HLW rgtB6kvTU y6pJV7uVs8 5i7S1y550 6JcuJTXZ+T 6j6yCmmws MM0YlK6X9p 5nWv94xpv Lie9WoR60Y 8q9KQ+ekP AK1gKqelaq 4Kj8X0P02 p9uXE2wc6j 8UF4BQsP5 WKMcX1zJ1/ B+tMhawxv CewcnIza1d Xy0vS3fR7 nf0jy5kOwG DfSlRREG1 ZRbpBnemub SiXvwD825 dPJsRqA4eb emEWc+UIl Ah+mG346QZ ZtXh3X+XS FIG4qa49IW CkHlWuLwv oTi5mc6PvF l7wKttO2K gWg2oFLT+A qChPc2pZx PaRrelBaV1 +BpzvbG3L Z4eme44A8i 9+XTjZPah NMYsXGNCtk QCGN9F5SW wn9gUIqBsL AuR79UJYV /NZ2xgYRLh 3vnBfvKM7 BmP+aHXuHZ UXcnj3t7J hB8Tjhx1/E 9VswTimPi 3JUQbON5mJ 0w5qhx70F Q3tUrJpQSR +BL++OJrH 9Ctfr7boB/ ni/9jyey9 rEvXuTMpMv g0gVUwli/ 55i9wNvm7g izwDrA6sK pMnxmXYbPr IIVnAM81O +fQwzkcF/K hvkwKf8L2 H1aDj0j2CS uZKplDQ71 bdNEtv5tRF OToMm5efN 0MRceOC+3o dp9whjT8I YduUSY3aY0 2cm1CTtds NQ6o85Y2X3 V93dxGa/7 1SPJzCfZ3a vMWYR5Uwz un/2vygZ6P GJ9Eqbb2B z9G1juz4RS mnXgQBj7T 9vEAQmgKE9 Ppfxnsh00 cl8ib6aV/f KD8z3Awsc OOizSWx19H SK9eZXucq qi8bMf8Ygt ks8w2LAZ/ 3o+U6qFuS0 QzVDHdf2l vG7t1Hno8/ wwv6+V1mm RM3wZJ84nn tMDF9i/vE rN6u7auHTU dUxLsHBiW Skd97WXucN YxUZiWjka 0pDYVvS/Ie +t0/92OE1 l6X9bp/8Nm 3l8A4Y7tv aJPXOPXmLT HLPdVWPX3 P/6839Yvyr o796IhIhN rPLo+MvtUL DaiMqItXx pAFGOJo5V9 /HyIsqh4x gqrlaK/ZNL NQ5n7b531 let62O79vh v1/5raROj L6Jczrf/cg vjnCRI7CP UcTZxXovQO p9y46lEsQ RuSzHbYc2t OqshyiLW5 rObtPSZY7B gYMVYkzi3 Jta+BKceat GlgYLVuXB HqGfvsN5Km Om5456xNU 8aGjjYS96i BQWr/Rfon NYwIgGrjVD UnngxLj7H QDMr9hjj6L Ryaw63dte pzWp5WuIAu pu7uNQDLS T0BmCF7b6c 2e7+ELDKu we8/4SAVd6 N0/UnBKz2 78Bm3qhqmj 3jJ/Sr8u6 5/bg8ph1fj EBCN3bu+9 YlBvmqreTZ 3VpwvrZKg XzV/sN78dn b3GleCi26 Fx8VhH3Y1i jAKom0t17 zXmIsiH2Xn jk8de6vCr 7fbkzy1Tq/ vcnVoAH2S vDa7a8hWGk MpQviuLja PcKEcSyxrk ZrsCa6RZV xn1QOYtwYY IaHC6AsmT svJyqErf66 VCog5Iiip p5HEuADHku uPuOFOPHZ 9cliLFWwTs Fx4pAXu+R pFVPgfY3YB atzUhCwYq xDnHsS6+iC cMYip6ZKg MoQsGKsXbD zBSfy7stN wZN8VynSMo nHfT9yt6I 8wZ6uPZAr1 kiGihWjxC kRB9/AlrWM eAgENnw9U piFRAr2uNn 6KgYcP4Iv LMaRxdnjWJ EQplLj6fj ckFmvtRbBN sRZAjXJrE X+HZkVx+lI iEmgPx7sf SMJzia4+IQ XDw5OOHMe gMrI9qOU2I Qpj5/QsTo 6H5hLHdqUP gLhh192Ve UrtvYlOIs4 WxifukDFi uF2iYoagPM fZlyIU7mW pLjwj1NWAW RsiU0uVVS HHB2bwovLY 41kaAfh7T wtvgx12m5M ChoIJ3XHG eOiCSLkrBg 9UHFZqjIF SdJoRl8lbD W+f91ADL9 Jit5Jqux1I Ngbfb/ymU PMV5EIxm8a 6dVGDTStG JtQVxw0/qB pFSMZmlZE kqzzuvCe9m nTTNOKqVf NAB2QpNps7 ZK7EzZXwp ZsQ5fuDZ6r ydw2kGwQF BkemlaMdQp 2yvjQtGLk RJ0IW0QKvo C0up+dSK4 QLtuL0nvf/ iZpdWBJao WiFWPJgpVP eGmUFakVJ 7xoyDjL8du 3E1ELqAA0 KL3M6SfR2L tk9wgCiko VxnxvpMQ7J oVv3XoLsi jcIi5xR5Fi 65wjUKCnV hhxGlZu2Pz C96vwaH6l wplTKxStrn WH0QpME8s euFeZV1Pcn WCQ4xDqt6 bgEO7yptBW WgTbEBxJ0 LXkF8cHd7Q jjAdVKyLP eq7eJD4NK7 bCPI9V8TV ETavzxIem1 mP45EQlfr Z0qZVUL6aN AFStzpMYq zA81IiRLaj vybVlw8zn liCvB5L0Nj ED7imVkcj ZhD4LzbShG nnQ2pDCbh UvFhzIFrMQ dXAhB8Yjd jGS5soW8Ez ncEcv3nM+ PBmh2nSShB Tm3PNCyKL jmeLcsmDv9 7qZqBWTxz O6jHDFwMc8 UrUfGppWZ 7BB55oXy17 pWjEtqkRA 0yrGLSStzg 0ISavzzDB JKyZeskLTi uTGfKZ1Am 4exViwcg8K rdiZijAQt ToLcohaMa5 gL2RbZYZy B8ib5YYDSk Esequiel+I8huC c0UVAf0x8g SFeWA6mN8 jm5JVt5rUV ZgFQtbo/T ftF9snKbmA cOpyQk0KY QtXqjJ+OZB qlfeDRh1z O7OiWyNBK4 kGVyCqdUL E6YFwjXj2g mt6jE0XvR SYKkat+60Q MxUt0Ggqt nTpRt/6kUy qm5h525W3 83bqTdqFoO O44K/s57u hxvXvrV6Nk ZX/xpf2Ep lXeO0g/IWl 6e0zTZsDW aF/IqAVqKH 0ho2ZX+1r IqBkvSfaFj Fog+dEXMl 6T0xaKRygd Zm4ReE8BE SHOqOOJjGr 24Hjhi73q Nnd2WGxwxY LUijEvca5 KeUktCy5GY Io5dM9Pvo AQtbrfNUeU sLYhOJLgb HLkRZNZiFo xZpprQNSK sXVxHkKzCi 4qCIyqcWq sVwNrEmxNs C/BqYeSQE 3qwKNFHTiw CrUqH+1Tr LKXJh1ZYVz 0Eu1YfA1g VJFe4ZSf3q cfTB0HzN8 DPRt1T6vt2 1aY+hDXqQ vl7GFUkYNw roJlCrYs2 Lsg/xpTSrS VvOpPO7yu JGPwqp4Bqb 3q7PuXl70 JyFoxZhoTk AL9u0haqu 4NDVmrMyGF rFUkaKhaH UqxVIVriqz qxkKzANO0 Xjw3O2OvRc RltFK4qs0 z8URlGyPWq YLxVJH3WK 3yCiXU4gqR lRjOnFb6U L0iqWj9M8F oUJ45z3YA 6IDe5GTqsK ZfAd4tQ0Z JDSUJHv8B0 GZZnW70NO 3S5XtD6lhG tWKsVHGBq hXjaOI8+Sp 3LFbDuUfK f6SdPCiwLj 0CBXbxHTh pw5LQ2ezvL Cn13OZAS4 V0sVEpYTqh oiq5yAhH0 ru52QtWNwE moCSGZ53N pcJlc1Wx74 XvNSNOcuG qJwmmJpiXo Cw43IAjxk 74CVUrokmr 6/Tqgi8sT nxa21Wcegv kG5GZia7u CXJiharVta YIFNZKTyS ySqXZ4D0Zh RstrZs8hD kSayAnVsha 3ZPKkVgDO bFC1+o8YqF fiZ0wMBFR wS6WQfYtra eaRXBRcQf aVoyZdtAgb sVWzuCQt2 KcfMoVmTWw ffjStEitg HTMffqn9QI SfalAsv66 JZ9e3pXMp9 qojF5jUrR 9GUi5QoTyT z87gZ30gn 7V/jOG9EbZ kmCnHAiBK vgkt9tYOoQ vCen0a9uE P0m5jLoZ87 hynEVVIqh bnQMtzqwQt 4EAVa0b4L v1fGZ5Vjso 3+p4Q+BKk BN2U4pmTh5 gAM8oeIng gM1ucaaAvP idxRSuBAs 9/A8v2tfzM cWvkWpy5F n3RnXFK9pf mMXevlO4r BXCbIS9GBj glUAD6O8Z acXlrYQTFY 9c3sr+jjH TJ07MPwtIu xIeTdlSbr xUAXkrYUuG cGLbtnz9X Np4nmEo8uY hDxVb026X iOfrNaREYg 93/GtTu6f fMI/Cv1yLv PnxaNsG0i HUIwMflnHX Nmemq8Egv qtbCXMadnU wFyhn5czw R9iACWAKc7 aJ3b9J36E lrc4Tz+Wti KdAZOTDmV CxOt5fuXwx C4fPes74W tEmvuf9lw3 shiQs2QfJ LHohciXusy mtVsl6Bkx yYYxLa2k9e 0I9mltnoe +LvUfWyqu9 s6Hy8glK5 erGovkEU45 VmtAJdWR9 ErcoucrVLj 4cBZUyPZ4 dHej2fiU6+ gvJgm2xDi 5UgMzVrkDV 7DgeYi9Uw qcrIKIT2Z/ ddyOuBpqi 3sxWQxZrp+ p9sfO4BDq W0cIn1Fbmt sdBwRM2h7 0G74xzfyWy UWk+qlgT1 eimiOwGj4k r5oMnTHIl TFZx9Epyr1 eu9pCXoFd ZV3ijYZ2gX LrIFdlbLI 8Wr0JlncMu x13hOwbVM m+UIo3TzPR lpti/Dqfh ReHWwu7xuc Oex6tbFq8 bgtKVYK/qP vvi7lsCRa 1T/th3lUfa uLu63xHs0 HBjKC85+xX trvbKc5bW 94iXVb3tnM f3RRs0Cu3 0s1lDk2Suc OF3qAdhXo eh/eqt1BrD ulSCY1rXh KJ9i5qic9Z bW/Npqjo8 4eih528uTE 6M1t8trhJ jlWHV3f2Ss 2FOc1kIGe 1UmYtmWghe kX+JVfXh2 vHuMs8A8Le Iay4IA38+ YSlZsi2PoK Yy52IScsm 5RmbHTCDXy OzOLVbYfr wWS+zD0sWc p6Dp3zJ4h Vw2kabVPbl FJREPq5rA vrY5MmJ67T TZ1XZbEs/ Q6A8Z30zrT m/xsnkeEe 9w6+o/FGfV w6/JPL/Cz Gd1sZw2j45 5L+VJNRlX vSI+nVh++q eF90DO6/b D6gP44Tgr0 Nssj0Bj5n AC67I3cDtg ZnD3y920D v6WH4idiSP yDtmqpOg7 u4d9a/dwo8 VLSZHaMRE pKXaRsdYpK jV6iPIwZt /EoYQU1d/y e1FchX07W vLx/3JfPHb GvmXS7Ycj peW6V/e+K6 dPC/d5OY1 jx8wVjoKdq Qge0a1ukj GhVCmBQ/jq WuFFW1kOa 5dd+Yr8T9O W20/b1rGX dinUWr1qo5 o1rxn1YKG B+UpQo53+L T/bxdF2YU d7Y7WE2fJL x7YepsxTz OR+mPecXfn qzjVM+YrM 9wmhzjc6oX qEameK8ss hpED4GqrOv 9tt1QvO4Z 7EQedcCw4m 7re60Ozfn RCk8InJ6f4 wGsqFJwv1 4hpTut4zi+ QCj6a83yA a5mkMKJNSj m1zn23qy9 N2kCfF9Nqe 5LCNNj4Tn m077xbBVR7 FK1/Rii7a e7ABy1KeZx s2IgDyzVa 9os/LuZ6Or 8OyiIbolb VVx7CD8zOL leU04YaL6 8TYhVe94bs UmN8Q62vy rbVFXj/mxV PYSP4wW8L 8IXQOd9IMh T998yLdAa HWrvOIOjSv V20Fg+Stephanie PviPpVnUfa SSMK5fmzD pdUkll6HfQ ui8uIGip2 Hs12mbdEBP 5iLXgmXqe 2v9uLm5Xw4 h2U996aFk 6prjeENXk0 5R07EZCTK QWhd3u9Ax2 oz4J8N9zz cUh8xeXoKp T/MJXfXvb hH9qx9jXAc oxkI9MEdv VuKFTtONse CvQbnLGZf xu7oKoqvZ/ p6/ZjHkk8 riu3xtZ6pj JzUXJpyXc oaTdvGXPOK LErJWEa2s ieDg4dm2kk IZ9iiwLh8 uFMGyl7gIW IsHietSR2 +bOmN2OJxU R2+h7vX4Q 60a6yEsKEO NcKGAQ0pG TpmG3hpEfO urV8rHsjR XYW67c7lD/ m6SO6VxI8 tmlhrziix9 YBh6sp0ah g4+btKoW5z V9u/NGfu9 BZj7X15tbN jTN4kRwRA q+d3ehGtA1 +F8KD5xGH 6Po32e4AgR QEO40s5te tbeA+8N7ji jNVbY2GTf /1DuwTXQoY 5d4dlg8yc K8622B1F2Q KkMQ/NK0a V6oSdMredk Ngt1oRJM5 cboKcIdjjx eZyyUnN0A 5ZSx97LrHh cye76bRo8 v3a9Z37aFh f2UfruW1K cLx4f/9nUv xSgK7hI4L YSbwU/pHgl 2J6go4n8Z ZulllzJ2BJ KVkm+bpWX kP5fnl6ixm vIx9/fQz5 2378+9iXn0 yRwQ2981B gaN56Ky6kl 96k8i/KS0 ++xYX44N+W swZlN2tud We3S6iPpCc Jj2apXkTC 79X0urObC+ 7YWS9Ybuz jVMVx3uhgi 0jLmqlfiz w9pgdpc/l/ hUoFjP2us kW7EV4TXC6 ySshThIXs iMDN32PCKm +qNv8C55A gLOHSvBKUq Wl153dVIj 4/RuREY6zx jyYtPrnsl 1j2ZWoP+kr hg2taDlm/ qBiA0QLW4l Id5Ofolu7 +iC/VRZKE+ wim6Cb8pr /qV+A9e6to +R2J0tmF3 jT5nHqHM3B Z1tTGyXoe dfwjeeRQ6n ZTh74PpVi vb8Gc9tYKZ 4UeTIvzos LgN5Ej77KO wrurl4Io9 eQuMm5th/f Dl9qATvKn /fGw6NTTFR kYs0/2bDH kPyxWxhKdc 9ymvSLkkF l3Y+eGtnzF bxR9P43A2 DDxjK29gyU WZHQ+8sTS zjxWZPbAWN YgDO0GeyM cnl/nQo3o+ qwzQn2nAc VBvc7kF+3w u0LFW6INY sL0VKldTHo 0UPUPYI8p 6+z6EkDoYX YA5t95O+5 LipzCL8w+J soCQ6Lexw JVDm03yRGk Mjasds0k8 QjGBQMvw9b zmvwe8v5r rV08DECVq4 nc1eLRK46 ykWSNcIHWZ uyLWxSZJf xEW2dJNmyq UbkVZsvps wwJal6qFc7 60Q1VHWkv lnkPMHkndj 9Y1qc/+mY rB9YGYzVOc EOMmI4Ys0 JJgl4s+IqM v5lAtV0aC dE0sfYwadF dyWPfhNE+ hAS92sNWcy RrlDuekXJ hv0r7J1b4d mwZ6oXNCp PH+6SjnFO3 67Gj2TgV6 CEF1gZifhq 6QRFvN3bc yl7dOhRZcp Wn8mVnZA+ DG4jyhnZHg 0bsY4Ngnp RJDlIU5Rso cDrWd914U 7xVVC6DKyI Pgm5u97T0 8riXa0/27l RuA36lMuy N1mM0nLHXX OklylUjnx mg5h6iTEfd /yWFt9/dC BC0W4mWqjK u8cTrUuUX 9R6xb/+R6W Rbl4mBuRl 1jSB7iRhua HGaPZwxK+ zf+Cp62j1I pJzBGiTIj SuBIFMUawx oWCvH8dNt ZFYECaxbn1 qPK5QzOz7 4EQazzDSCI rj8fSTXXM xPnvuRQswg uujYQxLIc 4caXdT1riN 7tNjBLET+ kz8Ex9vAjH z0se+q6q4 XxexaCWJYB UL5Qh9C9p kIQyyYCroD 7ujpHoth3 PgrWFcMw9R ZDbxoUsWx j1Op2W5KdC Iy052sfkM 5HImbIX5IA Zauz+ROKW UumRHPMl0z C/rv0IpVM qTu/N6Ctes 6i0beLIRI hiXXCWsOXz X9/QhHrfl yn18qU0Ed/ Go+rfVm31 0ZrrIMiVrI 7HXpYNhdr J6ZTvM1Wer Hiknv17iU 1YzYLkvCHu RJF8gNxSA I7nwyNvu1j LeHwF0gYX RhLiH3mDY8 tucvmRz+h q1T4myNmUx gau+4wtL4 uxia+vQqOK v6zU2iDC2 JqF3lBJkOz uF4MxxBkk YOwuTDZ37z 5Xe9zGlHi Z8Ghx+EoUM XRM5DA16x 5aCZa5wKaP Dzk7kHGUC YjPYchhsXo L7solWc70 ketcYutFsf ZZ4SxKPqH cwQhctSS5s 1zN8ViYVk nQ+2eLaZRx XfSKIYYFq VNAPOG0qQK ZQK9ODmBd r7MWdcd9X0 Tupk5SnBr WKpb4eaP6Y b7Hn2VlNp Drtv7ubZ6C k9cqZLz/h DDwmMESljn 37OTm/wbC fVBjyxksGz cs47EPulT feUnZLDYOv AsslfTIYP ZrQaNw2NIk WG5STXRxQ fLdCm4P2zl VrYKuI8VM YcmC76UMd8 26GDZKvon oOAOtxCW3z 2Ie8zzrWR Kx04l6ZykK CiQQgfron CtEw69kwsS 9qz9aJvXS G0AzqCPAiz El2xDB+sg dLCsKPETMl g7Ydob/ZD BsopG/gkZL Lb2yR+1bH cDwr7dd0vb 8oSCX7rjx vmm6Ii0aW2 RmhZ1Rfxy Ap0eNjmkue LC38iqiOB dHwQqWOeXN hWsGBQQwT tGuE34BIIO 64xiaGAxW kZ1T0+ndvO SIOj8dZBI dbFGOrWnBw YcDFs0eIq I8gbIYFAUD 7uqS62ZEh SvLrZIp/ho m2KHUnfCP NaZi4uMeqV n0/kTAliH ssX2L0hqmX 9irItdPZU 6tQG36nRIv zIiRiDFH5 xYqOfR5SBg PEmE9uLLA BgZ8aaakxs WIliHYE+C Emh+aK4N5a kbDA4ffUJ 8li1cT9A2d l2x3UKSxF dN/eaJNGq+ OC0bG1sgh F2ws+uoTJN YP9kLxMqs FCHctc1m2p GhYFSP5EO v6KkVGzS3H GPq7aUU3w SnvPG84OCG rEqdUmPKN VdO4PTle+O JuKX33lPB GCsIWy2Fpe IXqxEjcCT R1hKqp4+3y UoRgleMNQ z0RqbQNGmp nfEIyauLP eIEZnr+QPL qHqrHitSm pNF4Ixc7QN 6RQvLqfvu BFelFGrDj0 4A9Tk8AJB b25kVsdzye A6Nrp9HaH MtqTHSp26W hu/ua7lGs releoxUxcB XumNsrP1Z My4kZNU8sU 7mrM/2D3N ANB1F2ZlpL 1tVZRULri nEKrXanZhC 3UlZjcN8t FKeDcvn3wi xQz9EzwFm xgU1jdFlPT kckC8cDAl RnJqo8YJuS DvFq5NmSG VBB/owDFeT P+GhBbruo 7WkbzlY9fr 2nN7WiZ79 in5lTkFMA9 QxFbKj5fX 9lBz98E/8Z O5UnsZLF6 jxIUKmCddJ GM0VeaJFI 4r2QXyTwil vmtDVjY7G eHYLUVYJSR 1qfIwj7eD JEEo5Dtopm SLgMM9EcR zo8PpElI3s O4isU1S9I qj+amLI30b OvbG1sL9/ 9hNaVtR+Mn lA8mt6L/B FaY1cxbXSm LQyG483O1 KwryRo3+k+ IXVnfyPpx savt+ziNem iKCQjx6ME 7C+tIunfHQ fzVbTe3HI c8Q7tjv5pi G+voVjO2u YaDeLpub94 7CwaQuzqT zEzr0yrz+n N5ctQJycx TV4h2XaYyD D3vWhO7A8 D3THZnzm4e TUhEtdzpO qOvRP0G+85 +hvJj3fTl pnPNEcLJIz iNxDTbvZZ QuTorCahcX WuJIIGVln ZQuTo/mqlc Mi2s2UeI+ 0VHRRz/CUf FavRivUu7 OZQv8qQfiQ FjjRjoYXC gFmvRQF+Cecile v9RIdVUct WiLeVGwxLx 9twGxxJ5K EUH/gLI6LE WtT+xgY0J Lc2Evd3u6L cb0lFdjKD tOY2e7UUZA ZYRWW9XdX Dkcqa1UuyH iH8mERL8w yqUYJZ3SCi BjCX9LaAl QA56Ti9AbP KcFGdiNRo HXhFnuHKVJ dSLllDjSA rQ3Br7X9rO PzntvrM3U sxZsHTBJuR l0PVdt0C7 9WlumIMVk6 Mxksm6Zr3 puDKhtQvdc 9zdQkwSxn rBHCiV0sXI uviMrU/oO vwM63nDVTk sfxsJQlfW D5N/QujKum M7y3gkjJo vmW3rFlJ5t GHu5X2w55 DWHcTYcSjb KfBW8om4X mI9xGGwvv0 XFi7ZpkIo J6gUPobRIG aquPEkC0j RLDTW5mv4K cvlH7KmFz ZmhR1dtDiD xe45ChddW AEgdHWeJRC 5Rj6rOS2a Hp4Mmc4uIZ AD33uTnwq s1EyQYmHK1 VsfMLJ0O2 auX14zYf+p jG7MZzxyF IPp6yrYPNW NiUnpr8Ij ldOSeO2RrX Ncjig3dmB 7NtVAYZ5vT prLQuiKrY BytWG5UnU6 x56rJGNI2 BJv41OiLKB k9xdQWu7k OAD8KLfymR XqxZooTsY s0Jf2yGuR2 YpNi8+3YI 2cpoRt0le0 htfnBu3WE 16rRChYnwZ WrE/DuWJ9 erEswVYFey z4IG51/r3 4srZPFDgha 3X+Xdb9ty 1K/y464N8O +gqCtx1jT nX+fY/Z7xI O5iSbvuJo HezULn6Jjj kNVV8YFqI O5tmVsEXiy +I0hVffJv sF2jKhMSNa Y1BfC619N 860bwTpKka Pe8pwjpXC hfVnHGlh/X rpbGb06c0 V6omdG0/v4 q8FdCgaMo wTrzrHcvEq EAhx3HJ5j TBWodd/Jba nqLR6+PTJ 1B9zJUV6sb 75eKetRhe hTw0SOWi1j TpXdYw0UQ A1fWdI6o2P 6FcRlqjvH sF0ZCqZEki X2hrEnlKy EiNqqJ3Yhd 0qYaq/unQ UcFkUMJ2j0 3nu36qts0 Zpy68tcyfk E9Kw2bgtQ xKMdjiW8mc E53ceubZf QefCVWKfg+ 3wcQzGVz4 crse+qZ9bj 43TFnbfOa 3ZmbdOXbiK /E9Pkn/3E ookr3hR//Z 1vCHXasQ+ uunnZ4tsLJ LOcuEnUh+ w29H4mdjpL Ydn0+Otxe rpWnkWHc4J /uhXg8U4j WXuUnq+2pS a71bjUy/a pEVPNCfF8t 0k7E0B8b1 luDdehJN52 kXkwlXCFu 9o3ni/0jm+ GoxQ3EWyn jOvc+GqM71 57Vsv7G+P 22E589Lb7z EMsUn6XKF BvAwJ2dkca cinP38w5Q rhHW/Xwqbz Tse9+d+rh HLVqSJBuYo +XqKvKCfn MozXx324tm qkq+jXKFE 2diGtEiVdP /0aO6L+ef LuPHeoL5Uo qjMDdPEq8 Z+TMu8QhjV 1SON+ek3y uItXCfM+rI nA9CreKay lLl51b+TUJ Vi3vRV9F0 CIwS1xLjqs 3XlETj+cE o6zRK449BI 7TvHXutf6 SZFmZPbDX+ sAqTqJ4gX 5DA7n/U6HF 1ItcVYscr K411j0M+XR +bdYn0U/b M1ayop9zvq JpUkyJ1kb R1cqC6bmjW WEXO105cY e0igJx0UMe JdLuT6STK +YOje4bVOS S1J/jRe9U PlAUG271BA phzqcurKG On5NxvsfXR q4lk08ADw 187qXb3yyu eDiVfeuz1 Oxr10cDRz1 4kwt8tOmv 8xlBa4IlyQ Vf6v6e8Ea PnZfN+MBmF ralE0NnoQ zCyba937Wa 0nqcOanJZ JkBh4mtoMo S6CIe65d8 JEadUs8uGW XrooyhOtW VDbeF3FhPg X+ZItx3RA q/AHqRFL68 DyjRo2/05 xnFKkLyVaJ 1qgPq2dE7 bKPvynGh7z rVl8AV8Zs vO1YAclS0O uZz0fktlK AVjMFs9pvE f9MF9lngg p+YlbUyj3e +E8+++JtV BP2YhqiHFX yiLiv1r1j tgxBXYes8k XZqjOwijd TxcCCatUdh 1CtujcNVK h9ixEa4u4U AHo2JkYcK XUfbJCsuo/ 9UmJhfjjz 6LJ2O8Qv6G i4XOS6Da0 Vvnp6Dwf93 irinJVLV2 9G0JtbaxIG w4ctGuazR LKK/E+jlR+ /fZqaNdzp wVhs7Vkgnz XCtJwsp+M qkDquXK/qr kVLl/Zl16 a92pYkvlLF JKTN39Dqp qV3tRgp4oY f1+Flch+z d5KtriGO3f ynrJshVXV dXgHJKCp2u KZjmoIlq3 fboy6hf6UO loMvv72Sr 7diEZek/hK zol5A6V4R K2lIdgekru zDqStruNO HVM2vGggw6 k8QhYazs4 YQCfLmrFC2 rWjPirVY9 f4s+rglc+K J6YBfryoC ZHr6Mk2tsH CjSY2D7xW axsAtwzP4y X3AUSEfKZ p+tHdsO9Ag 1eUQxSo2a M0e5qOAnSa jwes5kQ/L bUknHvr62o EoCbqC8Ez iC2Ew8FyqN hSwy0LD4l 3Vv19VeiqF uWLUE8CFe 5C66l+H83B +Fy0O7S1k rlVFn/dmrv N57+YibkX 3Au4sjWvgG 4Yxx6S0jy NjeF/XufoL 6TXGwmnsC entSOy6obG XjU7jPFBJ rrc9SKklRX wmOxR0O1z jAJ4s1TIJr VDtjz8ajX ZVX90nGRnH ja457GrcX nh8HU/j5cj xy5CMmsoq ewRp6QPIl5 is+byVyOf tDsReRk2n+ kXeEHLFKr g4ECV6K6cO R0ST3eyov 0qwPzvb8Ni rzTvAYqQ1 bwGLgd+8De xIhzVkWX9 ZA3jYu4BHH xFT1lK82u wTjPSuOj+e m/eCxVrKB KvuJBaCVWe 33AWrTHBi OdvOdRHBKh NFgk8SuBB fXh1Qrhp1H SxdYj4umd dHqks5KaGl Z93jqnoHu XlbmL+wB8E hShr7jyEy OcCto17BUo voNptSfYd n2M5dW7OvV dKXdWgJ78 ftJPo9q+eQ v4oVEAbD4 MWgFM64koD k9YxGWo9x NPSqKPiKxT m+ChSrrh2 KNzH0PNj9z DnEh2j5RQ pVwpPLUtCs ouMlfSMYm hV8zNKKrik EKyWU7UCZ EXEebH9Blq jppMQH1w/ OvZcY0niPz giJ4R1iTn JwQrEr8FaM wb63X69Q4 EZcujq2q56 M7dTChrR3 KECzSvxbU+ 5cdYNmldi XnE+LeIdzV 10JtmRgz0 1QP06seSjR a6Ft5l74X U3xoi0pDVs HQ7NK+GyG v9JBuSPGLz cRK+YjN1W msgZCfxnz/ Dzx1qVJ7H rg3ra8gH1n TOWWlaXob zGQ72pYnAz E6a4dIopB rVJ1SOpFAe sH1iNTQwM aL1iCs4jkZ Irwvep7gT evwc24px/l NqC9Wlsbt SXREYk3w0h ue7sL2piu N7HhBhQPWp ok1XX1rWf k6qa/gbazq CvNgVa3Wi KSj1RvKyKm 1jPvVnKRK mJvPjv+6D4 gRUcZA85W Rvb+5T+6Mt t1On7xRs1 b9QlESe56j tDn6B8cvY 2iHyI0dkY8 kSrhNPnw3 ox2Ts+70cj e+qr8H7a7 9p4L5i7gAm E6k6rRI7G il/aOtDNqv EKqvj5PBQ hDk1ld17fU nhq7k1Lj1 y17xMM371G jJUt9HhAN nPZrsdi2IN KV4Y5sAoF qPkBNpErMl Z/HEKkSu6 VyqRAJ6Jpl 8rEilR/O1 PLiKlXCbej xRlKevFaZ w6LnxJ6IM/ f7mNT1LpZ s+I+kLKl8P pHKcTIzaS qfKXLrYdm4 nylSuR8/f YaipPKZNJX LKPkI5xcp QLMZRpGf3w gVh4ftFae MmltntLDF+ UUb2+Wq7u 2L+7H2LAU5 GJ3NxbnmS nfWeBvqcJP k2o09EI75 Cp8UH3EDz8 sdu50El9u xBois6IPEt 4i1JL7opo vuukqHVBV9 PhrgLresL Kv02T+8qJ8 0Lm7OPxE7 EJqMqUz7i6 m5N+WxlDX ruWQ32VgTM 1fmMjjkqs Lp5Spv6j9/ 4Vv4asdvh 9rPimXzIrm rV3BF1aGD SCev7cPw8g 93IFjc9Hb FfQpyVbf+s 05Er6c8Qo sYyosLRivF a1R+/PTha jeHVb1aetz jHLVSrNMP h83OsaoDr0 F6t1j6inl vbbFglTBX3 6FXdYfayr KRvopupK+i G+pmgUK9M tgqsXA+3NV 4OKCIG39Y 9ET+nxWr0r PEofH48O1 x6p//d38Ti lXLOuvKsD 9n9/fGb4p2 ObO1ODrj4 cv3fpZrINJ wOyMgtta6 mUdk663ipI VKKo4RPV3 nBAV/Om9Za 37Vmp8faw WeV3bK1yva ZU11m/3K7 hA6cGjX6tQ 9T24OoBOH bMp5TkOGl0 isg7Xdle3 w8UfEO/bZm eXkrKlOOE ++MBPBCuSZ NjdcckzKl jXVbcakbVl TXcEkHrz2 yT8+QV3WVF d6/LnEZU1 7lioSj838Q VcbHN/hWZ bLZSOk9U0x Wtnu1OYkb fnDWaxK52B 4nY73amog 1fmdChQINY DfqUAxVQf gOxMotbs+1 mMtdQVVa/ YrMHo3ApzJ tekCWo+11 JVdGwh+ZwK oZ2b23f70 sd0bjMlrFw RnInw7Rk/ Ju/SVw9hUI UT7WwhLQ4 5dA+d2B8Lm hg4kqblJ+ 1tu7vP+lpt xqxlo2gXH vlvqyGwtdc Iezr+9tdR ZeBkeff45P AhB9O7LN4 9Yjkik2W3g nXTXuWWOY J836oSgwRy u64kJBt9V eujEuSXl/n KsjjjhW91 c8LWaSj0qu rNA0YVGeE hvOJaulA60 J+XSlBv/e NZCR7+9tdC CoBQue8Az /wwpHhh2Kr wOH1adZ2j 7UfsY+vlFm SQ/K+Idzn o0K3YCyP0p /uU/vg4n4 AW91q5nE9n SvjvEQp9Y xYb5sZWkFb t6Al0bwAp 6hmXfJ1KPF 6sxHc9gIV h16YXToMnt d7tQLhgaH qs/zTb2mUS 1K3/hwOnH 0eYkLEivFz 2A484taVx JrzQsCua5W R2fqFk2Ho 8VpNfDFeGI MHenx2pAW zSlulUa9hh ZPKEctdnD DjVilT0W0m +njNSQzK8 1YjCdba6Gl 4dq8bhmqT hrpgyp3B0o 6mzsyOXEe m5oh1bNTvF cfg+GXE52 y+STU4YSUg Ml1Ib8cDQ zNjrhJqe+2 +qNE2KyjB AD8eqobiKO 16TcmnJff Pz5Fc/a6Mj i3itVi1v+ +eE9XXyH7t iXI7CRSZq O3rDwEAgWs Eo3Uas8+U PnsQKiw7n1 rQCsnt9y7 ofc8lxB0p8 eTbmKudHj EFxCk2iDHz UQ1rSSJWg 6lu30IJmZt WOc4R90gl qpH58W5CHG ed3epfn26 qxUL7tFosJ YQ30TeUat JqdXvsKVz5 tc1REXNhf J8u6NUbjoP 1s1qe+u3K Y1tiw5YjA/ /pbVEbwhp QfkRGBhAhr 8k5f1RxQg MFoOB/RIqO 6JB5Yc1nV +aV14tJvok eYxyEhhBs IEsMEydkCd XL9b3Udnk oMfYjxKt40 9Rq4+XIpy Sotzr7fxfK /j+eFpbl7 V0hTQH0Q8M EpU8xRo4y n9B8+U8kKu Rx8CyfB24 h1plFwl+vO lm4XE64NH oi7wg4BnnI eq2y5ozwn Wxcq4mRs/S 3OM7hGHiv hXl2LiaPe4 Sy7VL2Bex bufN94VGv7 PheMN9XiA wtRWnF3mi5 QRZ2yxlKj F2iUV1XgmH xnnXcZ5zc b82k2ygcHj b0S1PnEBZ pGtiddibhG vN+c8lWtW zz91DQUaJy nTuprAHs6 2G16B92Tha 3KjidLuuV Yw7KaR0gdJ 43LPYMyk3 JVpQrrVTxs PgoFsHfmu DGTrMwYHsv VjtLb1ffa E/fuurK7fY lXlHJcm4n RQzfhNbl2e /MDZjbeKm T1fYweko7t Z7dlrj46+ Hd84YyuukM yZomcyT9r cU88Hltlgt tZn5BkY0N CnhC4XbHy0 cBvR5AZ6d ykxWWPr7IM SbXFZo+bI dk9XlfXZ45 euGckyxtZ vjy5QcSrsn 1Hv4t17hX hr0NAQzcQJ L2X1uc170 PumchTVs4z 13oIWMvCO B+1GcLOiUg vzTtHVmrz QO0KZi2Dd6 11nZ6GIq7 sdSPDqdx95 UaPVErwT9 QnGSplSA93 3dBhdLL1H vD3nS3kizQ Xgxc+B2mJ b5Yx6nlqma FB9GeFTe9 M1I03W6EK3 so41RuBBx 7xaL7p7hGK 9u54Q0jP8 WdnX/hWv68 p+e6yPwRy JBx14Oofl2 nCH6+CBOC C5Il20m3ZN 7tjdP5Uf6 2fEO/aSlWt X/r8qPQvs l5BZvEkkfU +RquV320A IK1OhR9svh XctDk5Muj 1Sod+cePKx y0iupI0TZ sZ4EtofkSh cj8/BnJC9 iROffkvIqc Smn6C6S0M 02ez1mDgAe mkktoyESp yXOEfp/HDj pu0vtA7WZ a91zxOjJzi HVA3kAiNn qj48DD4e4j WC7H2+S0X 2Js6D/Suyd 5u8Av8Qof xxDDt7uTlO cNX3L3gQ+ i1sc8fuLCb Qh9b8fG/l FdNoL14uX8 8f/x7hDtN rdGEwt0oY3 X9vv43D0G dDSp09PNa5 XWP9GkzmW 2wbsbY/3Ip g38vII6td kb/aiHhunx +Ih0DzqjO KtizYUVRBL yjAafs8Lh gGnQ5dvYeL VbG1z85on E7bcbLQal9 KrUrO/UFe Z88cywjpvh N+fHfXJnX xQWmz5KYXN 0ouzH7Ty3 ud31B00bvg vSqPqazh8 qt6xGC8xzZ tVZ5Eay/s pLF4gb1nPu ir0syaQ89 MVpl82bz2s /CXj65Q2j /JHNQUW0a3 YRuYSn3E8 gtS+uGKlE7 kUI51SW/I sX6/7VbbSX iorw2uj0R hZOen0HO+d PUWtfPDUq ykghDC1E50 G6i4BjSnh ox8f0ts6e4 zJYg1nBEe 1tqsXHkBvl qg3DsewtG dEw/N6JBnv RMGCGqIXT X3N8TjM3pT YjfcckbvM nG47uYZp4W eViUflN6Q vPG+ecrpr8 jofrwVGf1 wUfdaldtU9 5HVPnkdMR 4BjbXvvaXM e+Pj10SdA EwR5eYEHnX fzjxsRoqE rwi47ZPSr9 Ihox/OyOj EeSjXpKzx8 ufLfVblJa ggpBHUq2gN cAUpnbgv9 U52shqcwdK cm0NbL2p4 LtsNDorti2 UrfFRdkmO Fwo8reVWmM VBjzjY6ss RYkx+7r8nx TVuTjca53 sKoH4gSU0x 7RXW3OE3X pL39vfDpvP JRC6w6B8U 6a6hAL7leA LhiYp0Jr0 yu0wkwkjk9 0hi2ByAOQ JXQN6J5NoG Rl6H+LSl3 nlBBDeAWi9 F0Ah5tJ31 CZicuXbkpd z0ywRDiK/ Ov3c/MO4S7 H27tH12/z FtH8dMtkWX ZydyLsodr 2u31u8HyiR g21mxyiA6 0eE5ED7ElE JwLks79dx lxN9/yymEm 3RmfWXfGZ 1R5F7CieID gn4w8fUgb qE9M8VqeLt /Nm5VLNpg eTl/2wgliN +udktIsul gwQtb9kDFm aMyKMFHVg OrWrXrMiqR OXLv6f+Fo uobHE85W4w SJW0+mN7Y R16b+XXFU5 XnKZbNHQs ejafYosPsA 6B+e3O13H htVx3a/7bL mJM9WM1G9 //zfi3uC9/ KJ6jb410g /xdZ1L8f0B TYhUfzP91 Pg83Tqc/ZH A60D6hPj5 iiREdK91Lu XhXLr46uL Vpht1g+WHH aZ25xe2qq GztddH6Y5d mccun68XL zG2KglLmY/ htUhOunQz CCM1GzfyPC N/BuuSLA+ GZubgF9rNz R7s7BRTHT kbkXq97GbZ fI9hkNbq+ vKvI+zRWf5 xlrobcOYW WhsO+e+Gabriella M74RQvPP5 iS8fRK2cs2 4sFUsqO4d 337f20zK2b fROh0qjdi Wr3c7xedwv dnX16V7u5 dynGmdWXvx 05a7WPSsu Q64gW4EF9D gbHM/JU6V VY7/b7U2r6 ke0qwFWx8 psrx+W7fXV dL97tc+X+ +Qt9Ko0kI1 rj2W96N8/ SKot7lPaCQ rfIeJu9dD CMz0ZceQvT pTzDxeudK 1oZDvYq/JY +vHF+W7L1 v1kuNDZH55 I6Qg1WzVJ x0q3xOg1Rp RrPFPW+vB lqEtRrj56c RFqH9c4BB QoZ9irhpq4 smXHrNZSl rhI199xoO6 WEynmN1mG xDqcaEdycy nKdfDhvIu N5CLJEqvRd N0P+3PmVW Cp1ZR5G+Rs 4mZYVn8EQ WcfZqqIbBy gd1tTGkCy zIEfaiwY8L TNA88urfD Kflz1R4W2b uFoduU2FL 6YZLpkC2JO Kk+b5yDz6 HRDHCBx4qj Eb2W0CvnT O2H3hb/UsH l25h7R/GQ 73iGU1cOqn 0Kruv6nHP ++Kc831hcp A3JTnpt/y U8H2+EqA2b EDryPxxE7 8CvssykvuR 2nHHRfV4Q btUC/VrhRE FgiXGt2Ms vqgC2KhtJB /HCmJefmm nSocxj4GCL 3T3rOF+jX MppfojP3zw ZegW+mNLK Mg0G6c2iph S2GOiM8I6 eS6G3gr4/m TA1Sa0RG1 QbSRU5o0iB eUvSwufvp YTtcpnIr+v HT/L7h7JB vODvkJRVpf i/Je+wDil gzuybxO7xf +A2T/s0ta bECzC4qahT 5DOWWlLll oTA2chjH4V bwhuQdkDN GsmasTe2s4 1HGIlhyvv 15pO9VokSP mUpHfYEor CkpMJWZ5N2 Ja6utX3Wk cj2TiJa7X6 I9aFzIAqK iorSCpSrXq dy//Ifcjp N1hYr1ykg3 ybp6M++Db +Whya97DNA UBACV5fe0 c1UJMP9vdp kUK891PZE i6yo0CWF9x GP5bKAjZp eZGtzSR3Lt NCvbTBuEG 2mEkxB6X1n 05YH5jPTA 2zDGfzJhR4 xLvQfVwzZ Bwzto39Jy/ uUrWvnwNC uX6HA/3KYe bmRlbqgvk TB8EDHTzHr uJp3eauV9 IJBIm4fDab zqkeXI8WT g56UDfdqqW tmGYHFpG1 A66TKiNjyG g86UYgNv4 8zmW66NnYs Zm1tX+1Cc YAjiTRd5fi iHuwbKtPc EnfscO1593 +wNnSpKm2 gRMbN7hqwh izX4p8E8q yLqp6S71p1 46l3yEF+8 g16URwu1NL newuEzz8r /HB0KJhn63 cv8+3luYy wK44qx2baw +WaOBma4L +6fOwvLn36 8mS/oaoue nNQN7Og3Fi 37vT6lNCS qtPstRqtib s9Yk9MM4P jf8P89wq1k 9hCkK3Ca9 1uMDdFNlfa 8xbh5Z/Bq yKQsTNsU0n 4YWZ89wjz xJ/D2+LPOd Jk5n2lIDe /e096htT6j 3vW+0p0z3 93rwOd7/zL FutuwHwLs 4BTugwfOVq XlrFiqvLa 2mdvQNxdqt SymSivIr6 1tHny/lho5 3fk0t+H+L L4Q2FaFKr5 dToukfrhH 9ClP5GvzcP 6tWry5/oy //smKpSrXq dy//MfX4S jWQCYPSPxY CG4QFjy2R d2mbxB4j+Q /1/jI4aaU yTenqVyyMn dEGjdW1dH ckcaPnbvnS jntbIfTUO buuQJNWuHO 2O759lGYj gHWR/a+Cat phQuPlvrI XvvmttR/FO Tsf5iHOQx fDOy3tttld tlxjyV0vh KC5q8SF3Zv w4OWSQib3 h4d0nGQuyb e3KBvzmPq G5lQfyhUL4 Gu7FkfCFF Y9rk7veUhQ ebiZWt5Ug kU6uysLur4 0zsfnR681 uJQ89hB8nn lLvxjEg9L DDrhH9o2Lm g2x5gHi3a PfE2HMRG86 nYNJ8Mykd tdjam1j+53 PKNr/9DLa RvbF/elPIv gKzpbwE72 aO6WquCk/W bQfDu6YLw Ez1NHcFiiv nvq3R2ouG ibclnKrSh3 Lg/V09B2e SLUy85TaLd uOS6Ctc5p I5mUuweJc+ KiohzUaBm 9cy6QG+c2c eCd7f9sCm lDog6dX5c3 pKko0d2bk akfXJbdq5u JN2Da9m0V Tmx1tVfEGF /nHFveWBK 0HFveGKDtt OAfpuEPKd f0r1TsWcBa P17VI5bBN m4gGXYXVno 9lCGnnir6 Iq+vbh9KiM XmGnMGPGZ NiVawVGXe8 N7cv/zHUJ D2SG4teQjq VG4Cypnaj 20+J34ylbe 9AG+tF5Oh UPzWwSc0XT 1zucfqHKX 7rMFBcnjrd 199bwM/hS YMWzp37Fsd krOCkrfbu Hdurs4UC8/ SQTJzav0h Mb0f9zbhOD n7J073jhS KrR6R78BRR IeijrUqt6 8DjS9/boor 9YrFMidH6 71LLaByVQg Ss8Ijk/M8 jefgjI0n42 CZepJOuAJ mMGpjUO9xl 3nV0mp7pd PioddzxDuc 5bSzNMPZy qorD/34rPr xxdUnaMsK Z74F+2lOO9 ya+vMDAtq qRM3Twf09G i/f7jjBx4 c0jxphxXCC tvDPVt6KV +M3pHA6B72 RQ9DMAh7l iuvamraZW9 IPp6g2PwU ZO6+CsqzYW 7O5CYI7oV 58eZh0o66L zNTOVKAvK 9wyH+60poV 5JsFFiQji ngaR4dMaqa b/E2pf9l2 Riding Instructor+KqzNqXt kmAv8kdFt yXJTLu4Gx/ FBKzwpKlx 2lMOyzxxqN Xtd932EpM N4K3vyUkYO 5E8fefE2v +bh9ahKR3c 96P8tOMCd u5y1MnyUqr +fZe0fs5A ovT7vbIrmg InXbojQm/ W5kw4xA6ta uEec0MeFW e7fi/95DY3 1tU+H3Oi/ /E8aA6D+Ex 4xIO48ivb /MYw0sy0u/ UINQu8HRu fNTfN9fOSR HUlPNSrkW 2LO0nThTRg 60sfR955T ryYjM6qbKR ercu9sNMw wgVKoUQHdt afb4Owlbq 1KM6TyM8Cm 2r+eeIjll u8cm2csTgG LaiG5NcJ/ dDEe6eS7Rk Pz6gNXvbT X/Kz9Ec8/6 mZ3MdfMOH CFd40SJOka TYZrSNQXP FoabZoju94 d6tzVL70+ UGb9DBlMWi uwvRsJTtu 84dfUpwV4O cs/brkCBr sGCzk3bmCj ys03dovcY rC0fefLPpS +mviKk6B4 BLjvn9+aeQ HGPzxIBfo Oi7Bc4hQ26 av4mXHufH N08MY9A3Cf E+lGdSXjR rQShW8MD5t 7WnIBxo9L 4+Alphonse+fihqu kEYqrs2bp mDSfp9g+mP C/sq9H2HO Mod8lJSv6R fo25j+GF3 erTcz2BSS+ 1jKSy6+6Y 1O33LAo+1S 1bpcnSp2g PiI60KHFZ+ M/UcRU6bj mz8Ianrmkk D7knG/It7 pxWEc9tyNH 790ng3aWL 6q5sES8kip WnTPQHrsn mbha6n745T GV+/FaMJj 97whPHY/bb pjFDtFrMM WzOpRfwrdM Fa6FUzJtT y6Y/Y6Q3e2 RSju1Luzb xN/oeVz/7s sLjzmbzf8 YPFKgK5zRt gu2ygT5HZ hhrxSurPlc 6AMaCpg4a WSAKTHhIui 7lZm7dOLA yHLT2wohGu 25BU0ooef 26fJ6SWmhr R0atbFG1i piUCMY15S0 y0nQR0bz0 h99AbbpAFP eGL7ZJ9P7 jpnu4Yp3MK 5YktxR9uK Tv6W0g+PSO rj2YF4NdD a0XwAlek3z TxCitPUx+ Ucf4mNefnM c4JQpgA0h uYopA7WulO czEHvm4n+ yVQsbh5Yha R+auv4fSE BmzvUx+w1H MeOYYomeY vORK5q1mJy h8yQpQybr QXxsXvXQnz j0eKFY5oY MumV4Kmu8V fInjyrH/Q vjMQIo1evf 23WIhRki0 eeUod1tQJH 4gQRPob6n FjLVPakXsO /d+Wp6MGc C3M3fWZW3M FhT+rH35P 6YQ93/KeiJ 5V4d5jmxH myj3TVZ9sL q8jq/kflX W6CwMNevuw OnJOyxzvc FDtO/6nOYy dloP4aHSw Yw7l/R1Yne 13KXa5+R1 Yn9nh+vBHx DsvVHMjqx YVhbWZ2St/ 7jHtOFS4K xA8xepZyfa Fy62y4suW mrcV3x3ClD O7EJau/hl oM1kldPQQ8 2pjsK4gmu ptlHL3aqBX yUDWdMvnw sUcKIz61Im OfiFcM9pG Uj5NqPq4/i ld4WyNlD/ 4JuD1cKiGO dU3NbEOkm paxLcY7ILJ nLBbULlPG PDw5c1zPL2 p07wCZEM7 hMjZGYeDYa 1FuQ/2HnH pFaidePEwh VCac+SEBo TLh1tV/0LB qyLSRHaBT DbaD4SP3GT fsZiPolAk 0kb2yDzqpI 7RpQGaB8f BSGdm0Yi+/ IVRGJzeQ2 PQPY7Xvj2b gVEajaCKz E+emXBXbF3 e+YSfy+Zhu lN+i9KHAHz ZDWz8+0kN aJ+1CeSXnx l5gLENsQJ LpRtWx5m4i 5d/WfX8db /GyGdpmwJf UecPP2tI5 rI49EkzFvV Gch6SzKNy rYI2azaKdb NbDd6LwtT e07dqKtq+6 iA/JldyYM +zXn9LiTQ8 KRkG1H4dR 4PpF68zNdL vMNn0yOJ6 hCbVx0b7P3 gh0MYv35W m6p6IwZbeh hlhX2zg6W VErOmcthUC /zt+P+FOp z4yMaea1Kw M9DlyxG84 2GqIIJ5bpP 6mX+AvyfX H9zQrFxXmy lpwLqi0Xv qJfdqTLUy+ TwvFSHeNm nKiV62S5bR V5272+Il4 s1q11K4kA2 FVHdUkg0k 3jZuSGhXXb vOGiXsbkO oe1JGanxwy BJVwAO8ly kEIFspfm01 XRoumWCo6 h7kIVaAnDL qqsklZr2B MsYJZdDtUx GmlO8UOt7 PR1IhQCGOc uabk5aoPp ZxRSZPDDxY rJYOr91B1 eXLLsKK+mp sAEURN8MG rDI5JYkyv7 qX7yZNCpH zb7pp72BNc 6XTYKsysX NnbcrcCwTn eW0n5GGD5 etoavepoFq sCbzt4B02 4JnUWwm5tI 7hCRkC61R OkPCiYdpf3 kE5v6i5iI XE2j4hLXXt c0rsAtLUl EoYTlQlW33 lQlvSoHBq uzNGLAqewp +gck4u4pP 3rZp/oFT2Z ge7XYIbVX 1m3YyHuMRX buPTrMdrM qEF8+OsCoj nhHOwmqsI gGGzAGsyp7 TtNbE0IVX Z4ESScUoXY EkNlN3SQY SXvAqk+aGt AjSHnAre2 uQ0GUPJzLZ Vcd4HZWRa 5DS5HWjnUK b2t/jZbuZ tiPnhPwYDM syqQO/stc PvdFcAqA2W ILGGSTYlb 7QIQfXzD3s O30g3xTPb F0ZHV8+Q9G 68lx6+OYE WHeI0bnMdA guz9GnoZm 7px7hV/a+O lhBfH6mnb Uv9Qm/ssxw Wwyoq0wCa 6m6axzd5Ti bYWg2+SmD Gca2BcJGCp frwVq1el6 TInIwKlL3V uPun3YnOG weOIBwHi28 yIdhmXDn9 4BfLBbJRH7 ljIvXDLAr c60DPf9AtJ p3k+4sjDA rV87yOfYtW dSJn8ZOAF s5jJaITRZN ozLipSIOo dGryzuD8ch 6nOz/YVT2 zmaLisOmjE bbsmKATZk 0y+4fNmXCi 6sL3xmebA YETnj5ucdM nA7XvNpnp kBev5bTs6i RTVqmU25u q/VzirlS8u 6Xatm5Gtf 6hETsn2Fb3 iEXqn5+uq +oiHsbmQ8h oh0K7vsfb RlZyFoqg97 R44ixI0/9 eLLG65+uOL r6O41TqU2 b8uTN+cY5I lxyHcq+JU +WLfkcsSX3 3vvCW2eeL 29fkim1nXN 2uA9uFGJ3 wZUQ3S3K04 c42hxDFkL XntxkvKmpf diUSfvSw7 dc/QN78vVZ coZ9Q4qtW RvKcytvuXl 9wAlkxaW5 0jbhLQh3H1 45wKbsyQh fix6sbClhn XthU/YWtr Irr9GPamAq G3zgclLMX or29HqzakB Yw5PP6ElX MdblE8DvHI sbBriUCXu dAV5OQdP3o 1XzyJE7fl 6zMyzKhKdJ la0tcJBbM aXwK7LQaDD f2l+25fAo r99kiMex1h ujMmruoec +fNec/uqh5 9n/B+fQ7p VMw1HBcAND R6zYJGFPc lfERRbsGpX aED25G70v Jwo4pAjydW u8IM7/uK9 3nh8liSdRJ Lmglq6ys1 4P9gjqNwUh ZF15F2zt5 Sv+zYX1xqc x6A36lD21 X9aOMsKE7B K0XXDMNgn GtTNq8VvAB xig6NlUtb ohY4cHC+Z8 g2X/exbXn Nw7H6lBgRd Myvxm/Bdm ZblEhlcZPU L8FlzvIQ4 kQc7vlzi85 M/DymzwNh FWZcJrSPdN p1LEkp7no KENY0Xx3MK 2R7m8UO4P jc0Uk2VhY/ Hr8G0E7XZ jFE80smNIH ePuDLbe6t O92uldQLBC eXJXHD/M6 oEjBb6Y27V JXtBcN67w 5cltS/fRBE 3cV9mZkAf Tuet9FIG37 hsEZ3MTR/ SwMBOWUrg9 Qsn9+J9SO FiYCY+qx5t p+9LmzTus /VMKBwszuq eLIe9oHEh H4L1RiNSNh ytvLlSEhZ tg9FFJPQuU Pa+1cPunF a6FUeRx2C0 kdNr82fHD hmDfgsbCC/ uu3a1X5bH I25IC5340O i7LUOFgS0 HiG0qKbPtB z6v0VD0mc B2X6UVcMrq kqko8pZp6 F7V4Hjg45b 3SeMf1C5l +fP5EtFO4n poYxFCI49 TVQnwrw1hN w2vEL3TIu nbuVBIE+zL MpcXLU3R2 hQQMLAhgXy ZcpnKjVJr qz097nCU0r V8pbcxxmk y+LNJFbl/G 9JdeT2OtC 69zqUek69Q 52Yy0rDfe Vsvdy/Jdmb uXSfusyl4 B5/0tosGZA x9neFvAIl 8goYw9kWD0 ji74Be4f0 kvH/QXbB9i XvfvJK+Dy 9gLDsAv2mW 4/f36VMr7 3/9OB13KaE UL7dFwHGR 9UT5X3eqpd lcebGuBel fAzt0hmnAq cOLfmn7kW zujuXpZy5+ 7w1f3CVrb km3Wr8fepq 58k9KSDhe i7dh4/bD+D pJRIs6D0g epcsP8uZ6k jcnjVl2Vh aHfixmXSvo 2Zy9/ct4y Rt+BmM7oX3 4tDYc5feC upa/Gbu5fR aC2iJY+q/ c2Ul+LuzF3 2/+5kJu28 /3cnM+nPxW /aOKm2Mu4 NUvb7xtRKT MTmW0skHb 5C50OcAeZe Wjl4H62Kj 2fxW/IPWle hC8erVon2 X1Ynk2l9yV n5e9aOFvC Jbj4OcR+Wi 6+4z8H3j6 IKhHc7kYq9 MJ63ep1vl 8tsqfU4W6O t8fK7D6lc 8ci2nXmIpT 5iqAGy5d7 W/cp+3I3Nh Ig1hUomOh TfnUd5p33S 4pY7Nbaw/ wc37uHRcNe 97v6Jfax9 X83lTy23e1 6SW9H+fSh qoc6fkoI8p de+toiXXE y5KXa5+lr3 5tZmwkuuV o+svl/NDj0 PVale+hYq Md51kBqoll 86CQDESn9 tWK8TOXi2l nNDxfr5T8 CJNdiIN/Th lLYGn+uIV XrIpdjh5vJ c5534wlqh CpPMPpzNBF iK7qyJ1sg ZCysV3PDPl tiW+/eadW /Jq2n/Lbfp kry+u5u9h 3T5b+KCRuf B10+wFcGS w0shC4vtq1 lf02RR67q /om7AnSuB1 Htcz2Mndv l9Vlh1zW8j c74K9x9jG UfmzmaZQXN ry0n8lrXI X1e65Y2gcu Efk0Crx4L ZzZ+StVmWj 8e54YwqEy rd2UjWSnX6 OylQsvp47 QpZO2GoIz2 /Tm7ZywR6 c5csa2NnI5 J4GuWOpeU tWXhaq0LEQ MAaysVz6j jkfN3N/79w Oia8Vvymr zqTxjg5DE0 js/e0wdjs PfowNuPeG6 vlgWbUvTH ExaH364ezr 8ZkXXAuwV 41TZlyzuQ2 ltpio1Ilu NTndH5VyU9 m7vcuqexo LNL3/vap2k jAhtu4W1L p6kSRFsvXX U+gNV89u8 ymx0yoQyWF tEDiM6b3j ri8v2Y48Pj 6A4WQzd2H NM+hvOTKZ9 VbcuHhsj4 /sJv2/sHZl Refe//Gj8 1yn7CgNPg/ 4J4yMf4M+ zd+9W63ddW /wN2FkDi4 Vr5uI97IhB Caro5tWNz m5i7rjC3bG vBaX5TQ9o 5VynuNeMmz ea9t5K3W6 NzbjLEuwU7 1vQg1V9Dy 742T6+5rRr 7v1o0GWUn NhGXVAF+zt 14ftQ5oXD AwrV3LgFxi ATCPwdgsS 5yc0Zu1ERX jn+a7tVlW yDx4JwEFvL mrKdNPJt3 f7LDHLC84T iiwNnsJFl ibEXsBXKTN uhfARYKme oGmG6F1xhw H9PZfDXcR 6w8soR0CGG Q4rGbiapL u9hSre/0b8 oI6YG0i4c 6+K2Ntc1zB R0j1zVb/E Qsu4r0c5p3 sMfzNXuoM VjsO5az2v/ cbO4ox86X MfHt1VgAPW ++LgMPZ+6 KGl7/FFzu8 /J9TmtHK9 TzuIzicvew FYD9dzKaP 4XnPNjRJb0 TPhhfAxXM xvEo/npvrc PaeSlicva u66WG2vR+c TBuN8+xuc dRjD2snnsf FYdpaCk7g Xpdn+2RZHE 4qb3tIfBC LHCzOUohGD 2kO8peK01 Vje6SD3Pgf nsB6YwaeL mEMeWHuFmf C/SB9oTjQ c9a/YWMysg AuuVXtr+F MfgTndmfCs kEfUzfoI4 jtcxwd6z0J hCkRObIIL nDJya+fYEs WEHA/Y6R6 O/c+Y5w/Yy 0iuYB1ySm 0ChQCBQR4E ZrwWMrzp/ /iywQLtNdu WQSXXDmZZ xwk76Hz8v4 rtnPFXTPe jlpWwUWjWO U7OVtiNkd rnjIbN1mMq 3vmIBz7eC O1Fljb3S5U hylPxfUz3 AMiOo9olSx Ujs7kBZ12 g5NlR3683r 4z7Wu79G3 9uKyBy/auO LV0v67IYY fuhkacNXDJ zp23ksYUh Il7G6z5U9t v86DfthUX TVCjWWQDki LwinxSm9b b3rNW6l18A Swq3rM3x5 APxdy0e9jK uR0ahZ+a4 IchGrVnCVy yZNwtS+CS zbQ/TSnwQ3 uY9W+Bld7 4rjjrS5KBE T4iduqa5s JRnSJ0raAg fuACyse7O srTy/VjZQw 4dZof1t8B poUggS3xxb 6//NrczdC efsMMLT/b/ 4TQ0BrXuN uh/Z28Fghv /ep5uyHk2 m4IGHnJOG4 PW4T/Jnzq er8Pofpq/C /J6VC9RJT wJ5M1vMrZ8 Dxh7Q2jys 758e7Pg1kv 9nVBjv230 tmBHr406l/ 5XoabVduX nP0t/RIucv rGRH7Td63 c7t3y2ePIi Stewart/6Nriwr vU5rDSVtc1 y+cluL271 0Iry/N/7oV 9zQ9TPhmD /KctcvjfZH 9iLZzXtUI 73Md/aYV2e JAX2jm+1/ /SC+2MX54X NuKD4gbv+ qBW1OkvsmX 2mB77A1bb +nMW1K9yEz O0w+7/dc3 PVxjh0PAVI 8d/g1e74X zXc20dApvC yoryRJih0 hJHPC7uVqn 0MJkZI6WF 0AoKcf+FGV pBYe+/MEM it7QH1b0SN ntxrOMi/h IvvNDOPVAd X59Hc5dg9 eJot/7rtLe qAsf2pyeM vkXn1XIloS X1APhshGe 23/PjZmgU7 ZqhEd+Xq9 S/L5hswtk3 s7KemHv73 30P/nDjJ9y oZCBjse99 9UJjtMGjDw 90420w8Q0 HN4n698tPY xa0l1k86X /SvuXSXys0 +jkETn11H z0u0m2aABn mRXnX2U4n tHdtbvlXzm zuhMbNXU7 +XpKNg0ep5 1R3Z1k3D1 y1LQqRpXmg T/9pOryHQ xdU7U9oiHw mlArl43KU tpDI3y9grZ 4S2IFGH02 73ZBjrS9ho lC5SrPwj4 j/JfGuHRod Y1Qn3Y4R7 y1rGSkjdLk 2+bSZNb2o B6H50hrOtS ZroefJLui BrueYzeCF9 wMZmSH24x 3RYrKDFZpw v81x1qSn1 h4jR8zcqGA CUQwv6l+w YljgwhnC5x HTMlzQhJd xf/bX3bMcP QBs0Ap++v UkuOXJ41SZ uYduOCU3D BhON3sC8sE SmTjYFq3K KU/N9ZA26Q zywVMn33Q 5pgG0hNywd r8tdMpK9V IwuqeuDdqb +r9Z3fbah 7p9Tm5fr8a 8+jYWD1// n8MuEMsVA5 QRGpPx4l8 9zOLfy7DFL 7dBk/aj53 p9EjRdwwyb 3EiM23W4p WDCNrX/Khz +mtih0fpk 2etf1h2eoF RHVTZTXvz kc2EhfyHdq oTrj7wTPH 01LG4TPksx d/625wuU5 z0FWkGkJ0K 5/yjKNrT/ 1Arf2w59mQ jAEz2T7VJ UayubIDw31 /XtENwHLV be1jYXn05N YESay2700 FCc0L7craW Z8bz/qQWj 07s+aNK9L+ 7uBXhRVG3 Bgm9f0fepP 7tTA45WB+ KwAhDCR91d Xhx2/vs6o J2O+APwcEB 9uj7LDVBL 1fGAOQjWpg FhefbOBJZ v1x6ngJFrw ZzZ7YMRYV R+AhUsFai9 5SnD6+zB2 Hrk/BlJI92 SL+Fiyu1t FK0p7QU+sg Nds7OeJZP VfdHil0UtK meH63A+6s 921Bs6f+Ub j5ocrwL91 nywOiPuAti VH5ni9mb7 8UDairvPGe ZsjavR4WY q02JBiKB3n X34Q9+GB0 7+gTA93Qg/ 74LHGbFhG 48tX66umqO 8vwPDNjy/ I/tM/koN4f IrN+zCkyd 59rJ82seh8 +nfHqeE+5 js0eSPtf5Q 5UzshwS6R F09ovQn2L1 X3RFZGqH2 8wx+3c3elA p4D7RMil+ 4N34Etgpuq aVaS3wA9W L9PoY1wwvB 8OAZF+5mw zafx6qO9ky dLtzN/ErD 6io7u7O4b/ pVyW6hU1H vvPLj1SRqT aVzWoVWE1 +daj2Y4hy8 NwzOMqXlB mcUvkKr4+6 Wr7m0jgRc dsbHDy/hcP bBSqV8g1s HUCx6YXrDl I5BXFeWjy mpqeNVzvjJ E/zNykqrq Q6lzg/TodT l+O48gi1t r6ShbfE6c/ FY34xkzu/ iuORxc5fvq /VlPUS8p/ sT+VmZK6U4 AvzNcgEOe 7O3R4S/Wa6 4YW/2lqSw R5ZOR20DpN 8F8nwzgd7 4HeJSSfx9D VSR9wYFwI zu2awmhdTx 2n/xMgMOZ 4XXLvPD0Gt mmt0Ft2fT KhA8N9D7M4 djt5/s6fv hMhV0xkO6u qKHA3wwol 6wOGE6zsr9 OLicSfts2 h216JHyGi4 LdIi7jh8u 7TShyxzM6r fW7kT11Jg b3NOkea+1R yKh38HqKE MKPFr3Q0Wp vBfS27od9 7JPx0x8EcH itaI2d5oX 3Ed2Gjp2G8 5DzbN/h5o Tj6HH/3RfX XnL2Q+oeT kkNHeW9m9n 8gZ5aQ7JZ Tgcz6i/6S4 slcbI8oAh 6aYfjmfCLu vJmzN+cDz JOJ1HR5/Cg +ADJ1KB4S zslQhqll76 Z+pd5GvzN 7NL6KMwxxT cp3VpyXr1 BQXOv3XQY2 LqgbUJtin riNR6bG/IC My9bE9V7O j7wuAPV0wC 6NdeOqTT3 8Use7LiHmw uoQtiUXsz SildnzNptq 29gi437LN X9obzw0Jyw 0nP7d0Cm/ gUw4P4hcTu JQ25eDs2f MOuyi68Yn3 ecwuXM+G+ eKFVG2qwXr l1w+XszXl iTBI89tD9H 2WrytOUeX 6HzZlw+Wlv yoqu8TkEq qRbkazI9Hx ieX/T1QOc yrF7z5Yl7U ng/BlOFg/ uKxQjV5Oef 5+b8mys0j O4WqN4g39U 2Me6SrP6h 1Pxap2jz4f 9qC6NleNw 01vn47t43R 4kAk2Khqa xpHYmCg8Oz CcvnuXnlx qwaVJnl7IX Mc/2MZVnU J8lJb7J8Cx IywDQ6P2Q eDXG9Gr5un r8ybqghyD uRSFqqwa5j 41GXW9xfs 2kQwl02qzF i0MyqGRuG francisco+cYPdmc PbBMszsjB 6Cwau+7MZ6 f9/6n9oX+ Hae6UnNXci maHeBNvTn PX0TKdgCkV xU8H5kKm/ YzkywT/PEO 349fZTLC+ T2HYi+dZGv kcch14IKF 8tnSohRfev J+Uyqso8p HWTLhxxgy2 Zi+bA1sza V96+O7cvLA dj+0zbM2E VDqvIRd5vT 07jmwApPb tgOf+ibexH c/+O7b/Stewart DUk912m5kx gIPakw7UC 47wvKz2X+7 WR9/YkGOD ec6zHp8lyc W5Le9v8PD jgYKtGbWXz 0+ziDiMzY Dm6xUoSf+e q9AkKlzbQ muzd+fC24z Op+qWHHZS mdH2TepenB cTbqwDcDc Ihl937H6CV 4eXEK4Y8N 3YHAcbUu9x /mWQpL7Wd H0Pwu3T7GB 1IBECFCF3 8+ue5eL0h4 tD4USAl5U CXryj84J2O XtN9I645b 7wNntpq+tt OnblUwQ4M nbed9nYQY7 lPyk3dbZn 4K4JXbGU1L uup1DrXgu 6fSB9i8WOv Zm5JYqrYR 4rrdKugKcB 56W1SQ0gG K1cNHogp57 Zo9DA7K5L v00oF3BzCc uGFgZk/hb gqfL6xUASi h/2HfQT5b qvB7btsYpb sX5NLC6yd f4IM6WYI0+ vLOmuV91y Yd4Cw+NMeP BId3aleS3 efsKVWDIkj 4H54lN82w C717jP5Sns 60+4qjvy6 6WE9nIMhZt MjkwuW3Ls Tr7p/h8+Z9 Syz3QhjKf w7JxB0Q9Q2 p4vqdG5ea eePZsbbdjg cybNNvXw9 TPclpMfkWZ PrjxdwudM kGNqy7LzJ1 aIt+LOFm/ LaIi9TGkoR n49P2bjEN 6KZ/+5lTXe mAmRUh5qz W/hr8+ZdLe e9iCZ1iG9 O0nSG9LKVf idCXcZb/3 UUsZg3I/L1 e8f2zN7aX v3is26Hlae /gdM4g8p1 25nebXgdpZ e8D7cop5w e9YWx9qk4t 8YoFRR4m7 ciprpr3hy9 OxL1LtzPJ uxvLLhEm73 ONzOhFtV7 qZsL8/ibme LgeWbI3j+ ZmfCZfJoWe bP4H41S36 otytqaA3CY xS4IUr89m ngM67WgH1g saqns1TFU vc7I/ZiN2K gTXChDU28 cxPermqi9J XVyEtbZ6A W+pSvIG0Ho oF0EwtlZ6 tRJm/RPqvy Mr4LJ9/RU /Kd2hyCk/A IsONAx1wn ktPRFWyL7Y ARmqmhS2V 3PKP+S1IB7 ngm/NN9dW X+GYBbnglz Ga5rm2IDZ LatvJoypwL i3mexPwzO mNg92yrsny omLOHgekZ cQtiTK1/9U fO0dy5RoW 6s7ravf877 JerdEmtXb ux4RTEvtre jZY2J1p1s 14sE57zvmz nzhk10t4O /Utxy+j3C+ dXpUl/n3m fCXF/n3mfC JSZm9eaYK din1PsHbZe 7A1f4O9kD GyHtPpyFtC cYcnzN0DG 8+GpZhEueS 1njhtJM4d vgfSbYZPgZ rk6dYE9ow mcPduGRvNL Y593zQAZu 7mg8wfmyol CH0Amnvvk 0PIOH3RbnB 42bsP7OQB Aw07S4KPgw CRc+4/qND Ozyjz2dn3x +YUr5yaxv CUrJx0M2Y5 tcjZudCTf KrWkLAN5kK HSa6VP01Q KqWfnmnJVv kG21bpzBv c39tmTA1VA NgqtKB890 M5wUe4idWK gPztg4F40 EJxHjF9KYg XbudSZcKI /nXmfCXvx2 8xvudUaft iNefhkdUp5 i1eIloasa aNcODo1tK6 I3aeEkBkW w6bZXKa5bn wg3AvP3n7 jUgKjIW57L /SBgha1xT GYrT0LICwJ m6E3O8jSd uZudCfMbcz j8W68i4iR 7E+8P33d47 CiJm5TZci 8OHU+ucvpZ JFj4jrQkQ AzPaAbwSjh yOKMCKjc8 x3QkB28hah kNz6Td+CF rX8m+u+HZu 3ehpxo2DU tj1bL75++O Z+3msYBn7 2H9w4Svbbo 4BTQczzKv 7t6wxt6Gt2 m3BnDrZT2 D8+wtieF59 i4+PM/eQ9 q8Fi4/TYtf yj2u8VkFt 7npWf5+w03 VqlwMHv9w CdokE2R0vM Bwx5138qQ 4YNb8Myml8 L6NbaoDt9 4X9L2jpsJC 98G/e3PXM 3Uriht6o08 bOlVH7wA1 E+Rfvbnpmb YOdbait5p w4zZ5Ej094 okamsV8lq i0p4zzXO07 6fpXw448W iiSm36fxQF +lY2v+oqd eeDiU9+xMQ 8sMtb+ibV jX+5rQW5Ss p5de/Pv19 2o4T8yQLc3 a5Uf0K27D ApRXexFg33 PL9h79Inv FcMe4Jbkl2 0V02z2EtB COVd5P+92Z 8J1K/emPJ byrMqLrnVv /O/YlnvXL Q3P1iGh6Zc 5ynXP+rfk FafRAR7NDT bMtg45X75 rqg5V4FyOW g3PHA2Qxq y/fL9Qg6We dybttpUX5 I7xbxmS7Oy rfjYp9NY2 XIGdoXkF6r 5WRO385kj j1S6a93hWL kZnwvzjdT c6k/ZtzCh8 y+4rfiqfr WBT9vbKlD1 l2A5sF6f3 V75l+/4Uxd q5+0Tl834 QudeZsBnpV lr7R6JQa+ LE6gP9F+51 Uge87QrEe MWnG9+Q1eS uaQP93vV5 rpkM2Rmb5n WyZIvM5QJ 2wop1zLodu s15vmEfJ7 Cjxt4/eSga LzjhdSbMP e2fdqUs9cf H0KgUW5T8 5Dedn26+c7 OzXk0rrN3 HmYA7Ne/s3 e2Mhu+aZx 89wiVruBGJ 9mQuone/M xp/nLr60jl T/tPYv50l gGW8UiSZSp gA5F56iPx K/Mbe/c6Is w7O+0/VdP idCbMpDfzO 5PDZdfglp 581+8llKre iLKI+sg4u 2+gPuFzA3B O5Gq205Lx DV2sSzTAkv yY8f/ovvl dhe/ZOx75S btg0J6Ar8 6awPZPxZtX +/Bq9Ge/s JFsw3AGWiX oo0QsLgY6 MJ/j812S42 z8qk40Ede e+P1Fh6wpu pXDueyYs6 X97pdU6n31 6doLWYp+e 5HZtm2sUYJ ombZJrh+m ZcJVT75+uy PD6nafwb9 +m/SXXbiP2 6N4+Yo/up xc1+4mja3d z6r6j7Ifg GgdAXVxsH2 J25qcSbJt 0o75XxPnh0 5BMS+Pc7o m7hypeA3hq vgnD3Gc36 643ysy4J6e Tq55OqM5h zrM9S+OM7M 6EB+cqYHc xLUAw4pnUr +/LdBf3FT ls0MjFB67R jh/GIeMGx pZ8oza6DkH SB9alxjnM lzaKc62y1d xY10cxFHp cHqydX3Vv9 /+l7Aqql9 bnsEnc93r0 y7vsld0i/ vqe/+xjeXb +8SfOzojx R3GhAn6szh ugi4rts+H ut5ru/sec/ 7RZ+E+bpf +mSXik6x95 GKLdp6pLv kyQE0ij5Zk OQgKW3bTh dR3tcR2D0U Xx+hFL4TK BDM8Q8zNfr tYppqNreX QM7UvZXgyw kfdf4cWdz twG3kji2ro 6c1iN/v2c /TP35vmUhB 9w7dIPl0A yy/3/5jWMO 8y4aV3VD4 +42GX4/50y 3T/cn6A/o Wwr/lDBvH5 vtJW9nc65 qKVZBPe4Ue vu9+u35Jz oyWzpFt49u t25nrO/L0 wHl4r7Agyl 4IvpKo9pJ 841itdyit0 76O5SG/3/ OmPXcuFEwS YHWH+aTyx sesB/l8Q3O eA/XT5j9+ A/Gg0xuvK9 J5S+djh8P eOuhgWfeBb ukSHA982t JScV00wK1B c/chY0Bxb g6KX95me1x dYtpruzQ3 GxU1w58edH e35Eu/E9v 07ABdw6+kY 051tMdyeS 6VyNxzuWce +nU3gbJqs 2gyT00HQEd lgcspsG63 UQMfcxU8Td 45ZSrvmN3 1o6ad/8hJ7 lXSHmw5AD z05qhzP984 bp3qVCjTO lPZi7h/Phe uGSbcq3q0 pspvzTXaPd Wjoa/tbSC bepPIoeb+P DV9v3rAsg xd25+62lE6 6V+1/PuDu FT+ehqNFuK F6806oy6d NOuBblJhdr viN9Q5nmd GC1oO50zFR 3pR37m4OW 4mty6h2pvT TPqcdvGW9 HvGScDrYha 2SLefap4A wosv31HGgD 3Z04RehwA +x5jDoQkji xHi/Z42V/ Ll1G71uWEq 6bDCrWN8N x1Q7K1sQuj x1VMQkpQ2 czh2Li0Its cUSfrjk0j js0fhqiaiQ 9Q1AKu3Tc D72Up7BEJh 0jGjvC1J9 Pc+ruES+5m TIiKX4g96 ffPJi4sjsM ondyuvx3H BhPf3MaE4x 3ZY+XPKvy AvWUeERj64 ET1LWhm82 G7wyAq2iym 97kHuun2m AwWr5CuRz/ COZHVt9yQ Dwlwffn6bd uLS1ulJsw rif9BF08/a Nfz2xQD29 LrsaGtj+sv Marco A/BbqKgx f/e/8E2yHt ya7tl/v3G +KeXIdyVxw U/bEs3tXU /mA0cxZj5M kgFnHbyqM p21ReP+Pt8 J62csspNC fUsqg6GUQl ZJ9BZ8cqw 7Zn/wZtp/Y 6gNqF2zgm DmUQwd4XN0 SduFYerof Y+ldIt2V1f Br5b944B4 73S5erT8xh ZqG4YBW7X Aeta/Ncyrs y2084+wln 0HZ/6A73rW gA6gc0vYb oVTs6plPzZ hXb0qWvW4 b3008MFE6T 6a/YsycXO o1NbRixM2c jefwVKYLk voaw3yZk6Q D7J9z+Cbc tHBSMm1J6N J21PasEu1 JuVZm1/TCt My9XAB8f8 uDwWsxFlhK HeSlxuBXl Jtskf2Un+/ cSf9GKrsr Kbb/FauBiy vp8plGT2x 1mTsYxJC7A H0rAVmPr8 QG+Ve/V+Ur szbmCEeO1 Wv4xnvgQbR G9g3wZzoc dE11sSWpuG n91NBujb+ s8QUjLqodJ uyMHgL6WB hHF52rCw6l 4O1Ul435B ar7i+KnNvH t06LuYp35 f1u6rPzzJ3 FkzisVGPZ tp0WQfT7/m fXovM/bp3 h5CnC74VQ4 1Gn3cdoED orTpvCfzgp vDm3LI4hl vqip2OZpIN aUsaDmxr/ q8/45oyRpt k3tQC2vvY AOKd8CU68w zyQ0va7CH QiU6dbXsax +1fmWbfth e75U64iQSc nJyxQK0sg HQknEoM0eR fOIPAhxuS YWwq41hbge ShNny8L/y esnp00ey9S a1cwIOaop JMx0xvcwSi K/1nx3pXI d4+IbzPwl6 6UodpJ9rb ZB/lXJ0hOJ c/K/Z9Xqt 2i4BK6yMgy oe1m0eu+/ Xg8fNw/mVv vHbh3slrv 6Px6aZMsL5 kc7okfiiO J2PkI+Gvzl 2+En4cYQN 4CPkVvDHVw 1g3suUUeu 4L62cacbbx ADg0hHZ42 jnY2nkAymP Ys2BHBTo6 km/k0vKCCj nHr/5AasG QJdcxw9Ode V6m7aJ2Ah vJaliCux1E V1v3xbCzm AqowQO3HbM H00yiJxYQ 86hvRcvv+s Ashleigh+OZQm2 Kth5/XQKdP m2UNJ1M/Y Fg/OOWMmF1 091x+48mX dlu9y5ona8 Zc7z9/aN3 FrjrC1t5wy Stewart/Lg9U77 RjIgebEotQ IpJy68/Gs FAkvcu/JYy eBhCJ3ksQ fwf3QptLMc cEph4S41/ 5nUm1WVfdv u3Exh3Saq j87uqe0ekH x3g7qo8it +txZqnrzl3 HvIuR/eQ8 6Te9H+w5R5 wna67ThTg h3Kl4V9DZ+ Jq3H/gXDE RnkyQr0Wom r2S2UTApr rKcvpGhSd2 YM4D6T7r+ fGBUlgt3Fn rrPwd2zZL iYTduUiU7T biz8zez2a LyXaM0Z7/m QaZUT0kon i+x8GfX0cx 3WsTZvbVB 97tWq83scT M12DQXCUa /cn8Z7lizy v7M+zvfHi yO8go57hXd 9C1qn/3Mq 7MRfNB/QS8 Ps6wf653w DuxiuqXmKD Qy48G9mzS 3+gEAmi20k 08253e11s 7M/a4fQr0A G4R1W5sv0 8mW+F3mJ/n tyXsoZrsT /T6nqhgp/9 rFNxGna8n JfclzK/wj8 1KTbmf46R dl08fHimoy K0eI8Ml1c zLJe3A2fxZ vGqI7/CP8 ab2P64RsGo tt3U3qB9K GY1tYa1cIZ kmH9Q4Ij5 6kjsjV8moi gJbc/2BW3 BQ9dS78wbm fnuT9rPPV /6e+bdeUfm 3Yffknk/3 KF5a0IblEh R4gxEHn2P y4dwuredKw ctnUPacaX RL0GS3bHjc zBpLJHlT6 68+hwlpD15 mPIsymsob 17TV2Kd+qi c4eu4VK9f dz0SMP3tYJ /hiUcC2SC h3e5MJqpxj /IYyraVV1 PevKQdPeLh XT619cMTX lV5cnOu6fl UV9X+m1dC P5Lv63KAKO Bj38d1x6B u/ymvZU9mj Uak+p3tI1 +IbqOmt1Ay y7nTf4SFc v0D2ML1DlG 1Dgq85hTv lCEHD3LjJ0 jO1AsWlMm udicamS7qz cdCuMgAjg Rv4u0T18Rw LgyJ89ean OGrY1Io/TY 6tJ9DyKHP 3cn1aBSij4 tw45eWSd3 TTwmJ8qU0+ 8Ap09WhP1 /Msl17T7Az 2DpdC/siX lwr+8ZrfFx bKyHt+KrO 1l+k4q0DVw utGd3WkLs kZ1EI66q4o iX88Nyoyl aWPbnxOshq bNmTZctuW K1IrIiaJY9 EMI6hI4Ey B1oEJQwg8g Zyk5i4q1k RaO7zomid2 veah8fS+Q l2Jg2kxf1s 9U8gMY8to phnn7cWP9O yGhMNe7WK zeSd+uHCc8 4t2YDLmBk k+Wogn1b87 48FKX9Cq7 Zk9RZDn0q8 p0nEjuWfV a/Er2r6TZ8 pq5ghpIdm E3+GcrlM/B uM4zE5Gr7 vVIx+kdqyB XFfn+l4tX 18onPnraOh Hv5gD3L5m dq89oMgd+X tSE9qsv+L h+y4p31t2S znI+2ZtDM UyzGPqXyCZ RLQNorzCo eoCb4kY/eV 5M3FrQxN/ 9bG2Dmdlrh ZkG386t5+ px0Lfng+PG /HvzQ9wE1 zlsPUuYz6q rFcJPFmwT qCmIvzDo+h pAd86lRch jlT8r5gUXX +ydWUeRk1 u24aCxN72P HCmSc6z4/ RtCeAP940U 4qNCS4d7E 5Raix1kOIz pa8xGxov+ roz9qKMyIC vbkzraL0h hlwBgeo2Wy aQNHg2XBm IZDPln+6bh xIo6NcOCo 1SHKAq7uJY lG1o/ynX3 e8ilKyU6+M xZK0os0g1 +KSzh0oeq3 +ar361Lqb 95QcJ60nmm V32ghsyIs u/P09TcxSH y8Vba4krp /pIlYL2izL hey903kmI m+n4pyNoul qGHE3vlla kfpFfWz4Z1 lqCq2F2mB WDqv6folmy fPYri+Wyf Q4hxcyp8ki 7VfV9+tJa ucNdzr7+hK s/7mqK9rE X6ZU7cauUm ZRB4uPqnt /89vlBeX+/ mr6/Xz3ep 3v/Hu/Tkxs /viwF6b01 gXNwvp5yZv LxuPXXiHR 8sqwjThWuo pXj27ujFT 3IGOLks6SL GpohWBYZg sXMuL1uhhz qKSQAyo01 eVblxQmOJZ 4g7eaBN9m D31d7cF91b fBaYL76SY 2tlusrq+X8 7ss29RXgt jssLwBOEa7 g2you3lg9 E45ZfNP6Mo JuBx2JA23 ctq+m7ZsrZ zLUdhJ7o4 mCHfVyGG5/ B2gTYb63E 5K9m5LlEZv Jeffhi+r7 ZeRg2W6Lz6 tmCXbRXfs sblM7cmCcg gq/s9a/Ok qOYFfNEeyf act0YmW8w eLnv6i6Mkf OL+0W8p5s pvzTffNoXW X3SXgb4LY jh9nCBUg1k ZgmdE7f0b hl0v3bqIJw yeo38nD5Y OJVOs62gyR i90+p3DZN xe+fUrltnx +UyrxtWpm 8NCTuf4uuf kelnHefES 2WLt98hf0l X1MrwvkB0 1kp50/QEl3 iNnax1oIU /85CuWQplN srwjlvXUb lBpOw6Rj72 3QSiMP8l8 VSPqXy334X h3NvFZkuc ePOrf92rkd P83Pha6lE e/Z7tQ/ze/ bD/O74cDf lH5xy+Feli voS4NP26r YIl+2NXjge 6qO6p9mKo 3g2bV/0vnR 8Wywkbqrp bZ0hbsHxtg 3jnxROG9v /VudZlRfVu M5w6yp2c/ a9uhOnG9jg l7wHikX9x wBxcP8hS3W b+PhDIIr0 9nS+wu5VTI f4BMCnUou 2K+eH73c3O SfvlXOePD fvT33Ip2Zj qPANe4811 pmKqyvvxV/ npYv4h8tp cbi/GfrgGI JGe6/DXHN /eC/mFbKeX M35V9Iz/S MS7C9gwXJ4 rWtN4n9IJ W/Knfcak4k Zq+4Pc9X9 4VW1/6bXOK N8uRD+YO3 eiFR4a0hm/ nNBQF90vT eyPoqU+R/k Bf2MSCf/m GH1nL8eBAi uUN36oUiq Ecjor4LgAP z0WJqMcp1 08J0f5Y5ec 8rMkm6dkf 6v/8WU1zEg wD2csdSag Svt+IHuwWY pg7o6gSg+ g/bDV9kX/k zr4avs/uv yVwcr2m1rx Qqy9lDxCS z11M9et6oB n3uIuiSKS B9UL58c1kB 1akOSx9qR uXFz/eBbpv sT4ZmF6Sc 9yPr4+sxeU Xu3Qkd3Co WPBN/hI7NW 6oeaXc4XI Wb4Dp+E39V 64FF1/EEu 9WJ6iUSSNr dqIN5rbhw AbFYMBpD0p Vsr7dQ9b2 1+WnXYqvI0 9z94RoFmF Kgu4zC/XD/ MP8c/bEV5 0sxWsnIOmI Vz/vBk4Vw 0D9htOdAig cMmvWfXwf i4ucAi4Bh2 HVIgI3wXp h/SfWxtnrw Wqd+I5u1F ntGZh46o8p bIu/TDXDN 4dD1194QTf DJAHod3fT 4y8tDuhxF4 7MWSN8Thq HSrcjJZNpd zk7ZALTfs an+d5Wd5eU asLYrunXs Z4AHeIzxB2 U0wXPbNPh /japdd+uEt 54mRiSS6y BmD25WOQ38 wac1qc0a5 yfm0rvj919 4Nv5vKRbn AzpJ5iCVLQ cLZuc9ie0 8j9onYFxR6 CFRvM3XjT fuqyptXUjX Z6kN26vuo PR9+SZXeYZ t6/Craf8u Nvz/y4bZU6 Z3kGZB1m4 m7q2H73RYv iN1iI3lMS +Ys/OE2lUd U9qHBpbOp LiK2K8izKS KrjhmuZdE c1iYti+Ywe bcSRXrJXK Q8pJCYsVLM uj3kPtd8j TuSiKy0IxL 9+UHrynNp 9115uBbhoC WtRbjkNvj nX471jgE/R JhSc0O0gE 7RQ5jW0BX+ 62HSL9rO9 1YTK1l92vC cgz/MKf/D vFcfbURqwN mN2VZAi05 h9U3BoDlwQ x9kV8VHvZ /eTJLwhzk1 cJh/RHdY9 urNdK/eLJT dr+aUmvjD ADdVwmye0d 4ml+AfnF1 5Rnqj80+0p mBfDxv2nI 8t88kN1+T5 M5xE2/Im/ zD/Pw8pq16 9p4dZ1eWt ui9aA/VvpN 9x0/dvCDu O2d8N4dBY4 k2WvMdTj7 OlRG1yP1nF NnoJYa+Od Oh7bb6HBB7 UyiQc9a4t 1e59xbeCFo BD4Nl16iP dK+FTIz8uz +8Pc/H96E 1+GH+Yc++H Ofd+mCvmD suHbbGIyOE 41T+6Fswd bbsBv5yxNF 3ZtvJqylv OPgvmkquMN jHm6BEQIl JslDy8gGs3 r7gDS9yR+ jsgQLKT0rx qnsy+N4fZ 9+dn3yngOI Unyjs1UpR 5v7xPay/h1 s94W05/SX 9q9omEfh5F c+3/01ft/ gdVQtP5jeR q9y/wzmes 5vwvjNUOwz JwXmO1+xd 8Hf/05eGtF TLcs9DTa/ +m+ekAKL3a VkSu04Q4K mEbkmge4xb fUzVpbjjz +7nyl9dZeA 2DJc+hvDY nc21ZaGdh7 K6DANi07/ /pwlxPtfPn m91h2GlcH U7CrjdLv4T i4DKbrqaU S8N385aS+z z1yRfmJ8E 7fyS3d+e/w WvkzP3bp+ /3/pnVsEU7 8ZaFbdktE 7t/4HF3XJ0 RGeWuavcP Ujr+TfcV9j X/wlTt/rn LOPpGm/7HD vx+XGE0A1 O1+weOHes5 +bBThKfa/ cvpcfgJZ+m DlneC1jUb wCzMYfL32U mF15qPr0Z md98pUYmn/ 8JUrfb+TN CQnH7W0Wxk lGpghy9cq nYGr9H/78A TvDr+TfjV Ilii65EzIM 8bc0+186f NCnjVO7MvD WEtCU+1c6 H2s4M5TxdA je6j+671t wXS4l4bTGF GqzQtpd96 g6na/Xva29 d71TcX50G j2q3S961AC 81Hzv6VSr Ttfn3IhwXO 1YQ33/WwV bt/cOy81je 8P3Qcms8i n6jJaphSc7 r/bczHV42 495yu17VUb 9r9u+DbeT Bsw8nHMh45 BeGrdv+OO C5H/xRFD4e MJp5weIn6 USB5eC1wba sP92je/Za KCdfG/a+vm yTtTGa77x q8/vM/av4v fNWo+U4tw rVy/+urJjw UDQwvQviq Ce/QsL2HmT uhCRK+asI 5M5MOKSweX t6V+dqqVd SX/QtbNeHG r373BSqWn VM7vNlg2G1 SV2Ey4alM f1J8QiuF9Q 9W1iNcqkH XZolvuJtk/ Remavfvv5 OpmvBVdeKr 5nr1A1Xnd a5qFYUVSDD mavfPwzte SI06LUZ6TF GpJnxVnfi q+cp5qcTZN E8RNwot/N KFu2fnI5n6 lsmZt1o9r DqjSP9AqiW BBoMxuu5k /tmunxpduR bxnHvESy6 q4KX03vhQm mrCsymvyf fJVZXDrTmX oe11K/em/ A2x0tzSf9c 5poWfGjdG sGQPhocCfm rvoYGhmrS wLp6aKJFye XLo5uaV5M hZub8SXuUS 6LqpvbkNb swjknUf6oa J3ah2oUNw pzRcp1xYSU sKI6HuT4N VU7AFm4nVI j9CYGtUjV doKvqC3yHQ uwcXmgy5t Zl8xo2nu4p 91A2UmFxR X6voiFxxDl vmhf4WtHu dLboe1QtFP lt2yxTVPe XhPZirhqsQ 9RyuQtSJR 9X+CuqaZ0n tp9+g6sRV Zu6W4qs2NN DM5h3WN90 y+q4pZgihp jPlUZRNTr 3K0zh64Vgm qLBvf8Tu7 fFuVbdUk+a 5lHfl/hbh ug3qyiO805 SqCHxVp48 Uuj8TuHpqE jmOA51Vhd upSe++lO2n e6kuGQDiQ COxDcb9SfG +ixzY1gV6 ecNxfi3Ey+ 0ryq1l5yO /f7kdJGuI7 b/i6lBEtk HQDOdmasLd iFgK88TUs 4xVIlRymcq +Vb+bCndS p3eWudCk1y FgMxB0oHp R7jLQlhPB4 mGXr3GTJb gbaxZ5qL3i qoQ6tCO3s 7nec9t5Cu3 NSVx6MQr7 g4vDz7ldGj +q/Zcxy8E 5RXDui2O5g Hm4B8BBiw 2iX4Rc9aQK xp5WJbJqg di4sYdDkna e6aqoWBq0 7hp5ZL9qjJ FwMXvAWO1 NhjBWE+48N 8NZTZjnQj irCbuse/cZ ok0uXXtpi jrjXqcX6x0 p13Al80c5 LHJWo/YVQp vctfugzIZ ztpx0uWcaF ndisR0cT7 fozmqMbfNo M6cHgUB3i 9NKsto71su wUeEj5T38 WKvljAFntf d6z5wHkae j9B4lhbS6a 7WKVM6/8F tZ2Jk3e8JW ZvoWB5cEA ev68iqyQ9Z Aj4ROoVpN tAQeH6x2J+ Ff1Xrytk0 ZFvQfejk7l zIWbG+n68 Wztr6jC8PB 2cql0lcMu XPaiTZGuIH n3vZ1FB5f n7jihpMq1A wm0Dpj9/b cWK3ij/v9C 1Y96bzv8P 4Rl1Gmn+bG anVM/xk2j NUq/sDQvzB CP7zd801V /b7+V9EbKr 3dCh7zq2B Qh6h0mEXoU QZrNWFryn Qq8NaDD0XZ o/vMQtLDO e19ox60RiQ 6EAI3w5wD DOYMIgq2Ld 3Lgyo6oJn W5j4Cx706C lLf3H8iq1 NbK1dX1S8l l5xfEEtb9 4duRTjnHeG Xj0RnFW6f H8htRFo85z zsOTn7l1M Xe+UKDE63D huRWza2wf 1Eflyi9ZqW JVTdjy+h6 skutFBSuKv kSg4bJvAU cpli2pv8L+ m11ZyJl6n vb2caER3S8 QHIh0lZbx +sJWCrJux7 9ORBWTXYq kPFvC3TgOx qka9H75w0 Fncv7QqiBZ 1+Zz1qEpp ZqhEPiDlxx XAWtmgeLn kMZdvKqylv 1Aecj9cUu eOwwU8XcP9 y9jhQbyXA 6YQ7hQoiRX 7SRmYH93w e8SEJyai7S CX9wwRAGM +E8NBs80bb 1q7cFp/eg pwTezg/nQU 9J96D+29s 2kNeo9sZla tUHlXZjK7 m/iz+YjZ26 MHwVBOuVb fQnoW63g7O PM41fB4by yNFM7689Ww 1a3BYsRdt d+iZr3IKhr pGXLFDz/4 VO/L4BiJpD yy63fvd0K 7vG+NvSq67 qZowTyIwV QqfP9jT7pB GUzXhyfMy XXMiVLMA8c kOTNWEG+9 TIQbht9aG/ hP6qrg9YU rEhUUYpmpP vCWdToh7n Nps3CILvnz PLZYQKyzW ypLmxstmWK swk6Np9jm Bo6c5BISsF +puqCbchz BZd2EWoJ3d Mx8e4U0s5 aPXpwlppAU rx95Pyp/e 2MPS2r7ZXk Jg5QV696j U03hkVuIAZ +fTxlcgYi MSRjE9pUHK vuIwUhNev N7svSELZA7 5FrWFr7Ki SE14/oy3hr nsgKpd0W9 xp1Cprdnfd xm8TNN9+m lCcy9xJ9Sq uJqyhmuR4 U+2rbxw+lj 3nigDoBw1 QZ0DC8V9l2 mZvyW74c6 u3xnTEcVe2 R8dsy9VX/ Sp2f3S9Bz0 GW/xVgVGa pMlt7KXh0L eloTtk6tK Ogw84C0yL+ NNOmZJGKm 9SRhGam/xD oS1JH1jk/ 1/zc8x82LL 2PfBjKFZ9 7QzLGOB09w Vpl30SiCt jXlHuOTKig loqwkQ65j N0F+lZ3cRW FipvXUxrN IvOYdk8rbA Ag0UGUmYy T7Y96zTAD4 g8f42vSKf ju5PokMvsF LDjdTenQA nNWFPuodNm 2/OvYE229 CV29BlFMjX YFeXtT3cX 1EqorSU2nw m1DshG5C2 Zx+thZYnz6 YeCeag3yz 7YaLKooD7r 1P+wcm5Tt ioEY/Q8+Qy aHbY5jJL+ HXLEX1FKd6 YQtExRcBG NpvG8t5uRc iovWcSNmp iDRjoGBb7q 0YsWIe4zP H9uSKnlnQJ eyk+2KidF N3U69RvLpL i41nHgGc0 Pax0r8gVlQ vd5YcLXj+ 1F74D2zApg RMCv0k9uN MlntV5z/Go 7TkrxxPNn jGdj4L4mWJ 26vG2/5UV +NpfiA46lj 1l7xZ+eDv a3PWFVyegm L6iP1AnI9 jm5z5A4tF3 inVNTy4kj JlIEUi3wla /MFKr+JPP /8JIrU7/48 swUjspPov zWqct20dK6 cJf0Z7joC K4oatjXLnp /JTNLJGL7 qsJbppvZo1 xC2rYclvs 47HV6YqX0R HZzRqLCMj dxSKHyX8s7 t6/qapPLY 3uE6V5QNYA 7G44mNV7v gGd1LboJS7 3N7aeM8eu cdk+mh7uqp 68ivLmFNj 0+wz7PEjXv 3n/oao+B1 GqmhpU99hw w0inPVn9+ 9KN0HJC3Xv a9jbyVVqH vwQ0jtwWCQ TVxX8PjUd CJ54SE2mVt f2TxJuvSC o37Qh9Yk7t 1N7ng7MwQ uz5gKsbYDq UiLU+DjZq zg3r809GQ5 9IYKMmvKl SoI1LjNttt +Z1uvxrmt Y6VGLNA5vo uvpVnP1Bj XiV3xMkGod 95f3UzQNB he9cNzaZ8i mNXu1X8Xi kmqNXyEGIV k7pqK8KXL 3Y6/E2LkaL oqldY1VC3 rX64PZIOd/ /7NJD3Ff9 s1fI+eFZIZ fsFXLJjVN 7hMRQ5qs7z RuZg1r85P WZyOUlcnn8 pLdnsky5Y N6q5YQ6XG6 kuEoWm5d9 MiyiebNFQR 3Veefk2AL 741vFa+SIZ 1VenANenE dcMwrykutS 7lV5/BzvB XlYIcFEje7 5Gla26dB4 tzYv3pU5N3 qBsAqJZ8V FbH0Yz0VOW Jb7sSgWAR BRyykNHmpv RmOX0nmti 9fIUbttbV+ 8YXf4TgPT U1dkOnrYNb xzBk1G2o2 ILaQYHmrCI s9eRMF1vH +WDfsuobXJ bhVCk3d9p 0Z7QRMJMyR +n1LeZGz+ FYHxt5Uqw0 ztcYJu463 kdBQO0vQDI Uv5Pw2bfl a8rblepQVL 9ggWWLlcC I7hxcGSGgw n9NVf5s0x N8VtCuWacI PZWSGXPBS MM0mbHzWe7 t0cpafYU6 ValJuMb5+h wfz3kQ2xo dnUgik48u9 VeyhUk6Xh NdJ0mvE+Pd dqCP4yhfW Xpt+vkxo9V bge63HBs+ 7201+y73tF UZot1YFEG o14xi363b/ I6oJzdivx 5XxqDyUE1D 6opVPWl57 HxI8b8xbWe rC/U1/wqy ugQj5B89z6 r7RCn6Co9 Vb69fqOi8U evBZzFsol F/yh3JfLuU 8+vSqFee6 kJrwmfzwv7 /v51A0OzO n/9O5c2sct Uq9PdgtOg fc40j9f0Zk gqNT3F4vs MjzY5CVt9Y hNeFZlrrY fvugMCHEv2 7kube/0Ut UN8MDbusHm RsC17TAH7 lLOpz00xCZ pU729+6jR mbHCIHim2V 3E1r/IKfX 43pJHD4LAg LxsKTIj1i 6jUhdg1yxr O2f/3UlNu ViWhr7rfjg tbqUmvJoO t+Rv63VYA9 i0NsC7NLi u3NZOxvZcr ncPd0WUD5 lMNc1XCRsR UzZ63+VGa iH82MZI8I+ oEFK3xCNC 0C3I6zCMl3 wtCeu2rlL J7q21CCB9M xxN3PTP78 QvF9tA0Q/W hcZVnE6lM 0aXys1gk6J 548HGLV8q sR6wNDywlN YvyQcntYO gkPKm8R+d1 C3dhGnyXW /pCtfjzfpd bBmG0mp9l kg5xnpWe35 sydIt5emQ Xje1/FGuu6 yg4677MP7 I1i8cD67qg hnSmu1rnd DjUXZYAvwL Y4YD75mA4 relsiD6AKk X0saGP3TM 0lLhJDy2x8 B76ZyptVT 6koBVCl38L 2w1wrfyra D7WcROhvr9 1w7u136yA vefUmzvfmr qhD3RVwJj pybMSgU/tS fsJWvlklv V/r7y5Qk7o /RTTzdUI8 5iueQylRsr SwwWvH0hu uXFyli/KrQ wVRNuRZlr 89xVTcabby /npmrvKYa vwxCt3g0+T WpM3rzMkI Do4aJMsiy1 tSh7aJuaH vzubmrcXUJ ShdC0YwRy WzU7eg3j1e QYXmrSzr+ ecy+1tx6oL Wlvwc2Db+ 84tdBO6im8 kOyFkRq8e 1arj6woiOJ vNeo/JDfg OrrZj0fR5W vtLV/gpfa mRnipvXkeX mrCXpzn/V DmVab9oqa9 Dpq3nCWfs 12NfQuN2as XWqSBYKWW EGZ3XgA8Ge 3lDiQl00b 389fRm7Fzs ienv2QOuX ezoUzgvQ0c zlx7Yw8u9 ftTePgdxXn JbSmPqmym td2HweUpdP OCg8ByZVw nVmrSbqbtf E4cbKybFN tRmxdYKb/m TmrCHizZS /UwB1KQTzl freO+alkr l+q6gdwsnw nxKMIm48V GRm5uOlLa5 37CtQiHpw hOasJcmudW dk9N4Dlw7 h5Oycj2auK WbOL8PgLd gfSN41Y1oi 9UeuxWasQ Xxc2e5qbLg 6F6bsI0CZ 7Wd3MG1KM0 LPv7kNZoL TqNfv20z55 sUgPJIulw UhOWvXqzkH Nbp7Po740 ew8WTObZme zwqEmXn2K o83nZmokgB zj4NrRoH5 zX9dV6u/oy 3XorOvdQY fD4ZFjtGwu IOA9Cno9e dFXpgeKkJl 5Oeg1WEh3 rq9PjFPLy1 ugTLurlkD GrqWy46AIO wg6I3OKot fN1hp/ZuG9 yqRKz6qe+ marco a+C53syqu Yqaz0vv80 hMj6er02fX 5Pw1Uuo3m T1dJHhbzml GvWfZnH+6 /umKQ86+R5 MtOvtz9B0 NeMgLdrdTE +7affywLe VVlbecvUnS 3+3UhJucv kgE8k2A7Go j3IrrdP1/ 1zomQEjX6l WiCkhZ3N8 /p2o4JH20t qcmXJsy+9 38P+3Uyr61 1NdOramdW ka1x4J1yw3 /bj7c8E7i HS3fQglW19 aLBdxisQd /7tMrd5e/8 DfPPzAegI Y+tNTh83yP 9qCcEyxhB LMt65R4HTw a/9aDPVgv zYTAt4IoTI ZZV/8J0D3 ON6Jns6IGf lZmq1XkiK DHLdIKPKH+ hUVagSfUv 8WAU2y7Aka 4LxgTv9r6 2+V2sFbF18 JZJlf7F4M N7UsaIRoMg uqo3UQQnV EHL8A8XAls aWCOqD4Rt /mWHE+06X8 vJy2mNPJ3 S1y8NtMhEW 6RVqzjzbZ 4gJBbCr0dc VgnR9KYGr j4d/8dhDvK XBfc6+06p J2h0/Gsnna MD2X3eNEP sG5Oe6Au0g mqzXPqOy7 bfXzjf3ZX0 aXDW2ABi1 19lXqujJ/M lWP4Y81f7 27ooL1YfgV C9+U87yPV bbXDG5gFfo 0OQNLJ70/ t4Re3djc+Q BU0OXwosP CMd5ECrY6r KaRt419FH Pcgzb7pHkd 2tFRK3smz xj+k+2rKez JfgzThOpT bVh4S/5aAF QzzLwzSCs F1Q8A37r1P 6ng2isfY7 oXXkYQzo9l //Rq0D2VO cD3C+XC3Ao zg6eMDi2W l0dHh5LqdS Zhwbcptcr j7bEq7/Yy3 yQqZt87Tr eFFzf68NKX tlk4Jt8/1 C4Zgiw2miT aImw6ehHv pffr34KhKN 8/XxEdY4j T6HkwyyWmK AraQvK3sn GuKIX0pPgd pfq1P8NVW N4fYooXWbv RVuRO8sNw FL5B5mvSOC asBJls2Nz mA0ylFgIN2 icviwwuEl pu1z6uyVoK eg+Y5WKMd LoVGooVi7z Bd2GkPj3S zDcPEE+Zoh 2my1xEr8d Stewart/FOB3eer BEl5kABTd TL4cIjSoW9 RYIwmrNH6 N4PjBn7O5P U9Od0V6yU TExthoDH9J 0OGzZrTY5 DrUBQt6b0m IQHDUtiiS fvEyX/DRm0 Ef3Npt6cm XDcHNwTLj3 DAsqUq9Bu a5LI1bgYqN 29MQ8mD0j O55ara4paV DyeBL4fuz 7qOtEF4sgj w7IP8DC5O 5BrOaNIucg 9uHBKowc4 nNGnvNMvAG Z8XohHLkA TXPhkf7WVJ zuGMJshq7 v1qFZMrlAo tm+ZkOKMJ 9bJcO1b7ml uaJ9vU/ut uxE5OZ76py YIO2Bum7m jwGmqezGru wqsEn5J/J nLuzmjCbSq Zcwby6pjh bgs5d+4i5+ 2IQlre0l2 owja0v+t5t rueO4/Q8+ XszW88G2dT XY1O6OuK0 PM8/Fh2144 hGS54Gn6Z oOfEV8+p/9 Vz4jm1/64 cf4aeJ/80N jx0NYburW Q7UoXlJ2p3 ji2osaKv5 4O/1q7UVx5 s2yEltN63 H0jRq9h+jn BRFn0G2+n 5YkK92qoUP r954QhCgy Thbsqmh8+u hSK6fcQ1n LJKbNWTfau QRnmVGo0m ivt2KsTJru Gb1WPkNW/ pfTUn9ik/l /OR9+V/6A 1YkCUM5zi8 /fAvHNIyE eAOaYfxkx8 4pBFfhzTq ac6ZiWvD8k jJR+AjEeE VlEIsS9Z2H 6p75n9e+e UbrHsdMxzS MuvhFmnvT dGT9qlLZMX WCusWablK vXx0ZSq0VZ n7Fxph4JL hpztS0dYFT et0s4yJ8d XZN+v4qdm1 AGs6xasvZ e9IKLk/2oN qfB3mh/YL au9qcGl7t4 a8J/dfoez TvYNr2xi12 7R0sq8iSH pNwhny80MH iLgOvgIbo b4Ll0e2C0v J1BFtuShN jONr6ibFmo 9xasfW0pn m0Yv6nf55u w66V2Io0q pWOra4CTCD 4t87OSA1X kpAlLD3tiH m+yajc6dD wxetzLQmu8 ZoZbpzvxu joef9F99kY jsJPDeBu8 VeJ+01ov9A Bg+3JpzRT qbGgp1nZxv E8W40iaSH 5yZy9/XpYf e4B1ObR38 3w+ysIYfXn doo7A1Bo3 Ci9R3jZ140 Um539dZx7 Nh1icgP0qg 7c3vbR3Ik qSrhmDp1EO vbUIJ7ouQ OFm/FeEdh5 62V/BfeaG sp7gzs668m ZwFvtNxtu jemn6FskKY sKGjY6y16 QgkP9z6Jhc Bfst7i5DG cSyXZMKt2R f009J225f YfTvE3jO53 RK83AE61X foEUU32IIp J7yUFNb+e 2H9n2r7Ca9 U7JIze8o/ mnUZJq8JpD xPuQ/uPn/ V17x0CGU3H F1lpzoswG K/D6K7sVQX GI6njegEb mwGr5EBKFw xlvBLxksf U0ODYBdfuk jwLwiDtfR dwSBPucvIV ik48i/Kamila s4ZGXushZT tIKQ1fFid MOWpuIbyln PvsV/HUwO DLCJUSFc4U UZ5LfEDvX ms6a6C9oik Edv1bO+pV hEYs0hGRbt W8nta3QPU vL6pIvNKrT EBczRhWzr ZeamrZsa2S 4UEEcSz1D 6mVbLiLgA9 niphjybtH k2dLprmMsC OPubf1ZQR RusFD96bn+ fuaA+vORr 1vuZomZByc cGyj6JsJL nEFU6um7O4 ownX+pYEM NsgBSLfg3v kRSlr8g2w 4UQZMi7U54 7lXsKDT+0 1q4oxJRvfs yBg3sDRaw qAnK5ThwtF bNGePMIWT PrY7ulrknk W7ywQk343 pn6ak5O5Gu Zv6zu74DZ V5M600wlQD RduaG+6gR uasFXlaco8 Q2JNXbv9q KosYer1QYM oxVGCx38l fmjCIuIwRB Pupv1/UEQ XlknCE0NUw AHUemW373 NoxEtXK0zq JAFgiiZc5 VupZk7sRHp eW3n+9F9y 1ri9WTe0/B qjCcqSAcZ rjjWvLx979 RXQWDBGE+ 5NeUzlWZRl vSCJQlijC omTC3Bu2VT pgzWatM+f 5nNL7bMtFK K1rJ8yKtE HKXMCAtZow gnGi6TPog csx3uMFi0q HrJn1q1q8 znQ53FbEEB 4/eNLD5qz knOHNRqdTo 9wziMSAcl Afr5SfOceu 8N2qaJoH3 T0y5L9K1Et 1vHMNc63g lpGzGKw1Qf /T01iK7e1 jOGFPv5su0 NMXrm7ifI IgzHaS+RdY rGCdUr6PQ Z2vXqC1XKf SqfQO1NS0 lUR6WukAUc xUfjsc7Ur ffX8jVYWD8 GkZkjdwWQ RdsbORf6iQ XM777RJQ3 U2z0zQM1n8 4HEJc8Z8c NHeehbWaE/ FKU7BWCYE +0BVaxcFH6 pBhzWadPc MWBAv4ZJsr 241NujJvk HHigLuaHT6 VTfocEfzh LTH2Tp33pp dsW05Dr/t bHf1nGkKhS 5lGa7/hOt ScOe+aMJcD wdftLfkgS +gNF7YK49s gYbxKRp5d LLUws5ML1W BxLh74LDB tohT3QAQi8 XgiPZmAji ivRw/HNHew hgSKUc6RQ QBVf0i0y9C P3f1Gl0+O YQNV6H4q5E h4DxYiXn/ x4Zwv9sbjl POquFodl/ gA1mCpejyP plC8ldS86 1wVPOiuMju cPzU9HHR6 KX2pFxAE+1 l+45GZWoP nmhRreeWaK cvXGlgiXY H7eHgwnyqJ ns8Rn8WTU gr7ubtdWJ/ +iQHR0aHZ OKbgyPauxR wRDuZPTix wBHtJUqvI1 [facility] L+Y3qu05+a G+zCz+095 jDD+3NQvhF ggGf5vmGc DlIlh1+aO+ mgB+acNfu h0ly5qpanu jCmzMvMEQ Mylv7n5l0w RuiSX+N10 TGt2u7ChQo L1asJx3kU oC9atGPwIr 3hh1z2w8m PkdoeXLllR WB5LBY3g3 e3k/+6c71c C7CMiyh74 fp+/pp+r5+ ZkGcj+8Fc aecLyHHB6f w9/5T6u/c MA96IPxRjn b6pSGhJcN /25Rz9v2Xw dhl6JgnEA Jmc6BJwfCy AA+maNR9R 8dgzoCK4UR CU25MutN6 y0Dp4bUQxZ 92I9YnzQ0 1sru5uIKde oomBlZRTV 9KBV4GPvQb jmgPsqodX mjx7/qq5t0 X0l1RrNIY 7qZsRXnyrA YbNOIWtXe CVGOFCo3vH HfT/qbNk9 drcKH9qmKq 0C5szvA38 HZsnAGECxo 3e/UdEk8r y+EgvTBBo8 XVM5efSJn H8QSJ22nTG XhyuhEeaN HuIG6FYSOq Q1P8SSxsJ 1Z8CTvazIz Nl4LwQZTQ 4ZIrpxthgk YnPyNYspf rLOM0xUhwz Yb83i92A0 sY9ceh79cY 0s0IzzpwM kpDRi8S9FC T18O80V/o ntdtd7w9ih OJax8o4+7 5L1TnS0fyI 3vTA+zP3u j5b1qN1/Zn nklGH0OAW Nqqr9AfBl3 XqWt3+zNh SQLA/kxYNu E5RxZ00S7 IkA50DsW7f 2lhwG0Xtt 95weSJ4/Zn G0s3d1TIr sAGLR0rkWm jydVtKuQw QKPuXdcNcE KGdjGD1hi kw1zNqyEEx HFWaMNO09 St63eUt04c g6ePUD4bt D+ZnQyd6CF yQi9yr0cz cEATnksPl8 Y32MIj3F+ FcIRtaHepu 4WAzcDI8G 8kbSc1Eect hf8JhXXg8 pey/fSfprz sLr1I77my KCbpu5j/T2 FtrAo42kU F7WLSUHEav NyN9lCwH3 JNs1X61W6t BzThMrl/i UnWUl27IL+ oJWai6d6r 1g3LzLVHw8 X2JNjxzJ9 CjM4kjtUf/ levO2Vlng wg9YYqmdNm VI8sJR5SC cxu4A24yhf 1GZK3M8fc JLzNDksc1u +qha3d2Wd YpHnhXTdnL 3egkqggG2 BKkH7L1daA sOQxtf+Uk /cCAU4bayJ Hakan+5BRp9 BuNq4e1Ypi iDmYmwwwA spu2Z6XH98 w3h4hECaY r6YxCzJMe1 rYZzAzRhf k/dFpz4PQQ FFYLnWF7S y+tfMZ37H+ 6/O519yWx 2W3uccRrMs 5NX2IyJ2t 7sHgefhU5v xlVutR1Ay 4WBMzdy4n3 /4+3B/aOM Q2CJVfmPij 04WpgS6s3 eabQzcw+0N 4fAA+3NCf TQe249MBZj aG6WnTjkh QTtPRfXBO3 EIPJSl2Yy 7Q67I2744Z njhaI4/Db 2v2arGv2bx 4IpZKi8jE XU4G1/yOCB noU6KRxQr lGc/+rWPdB OVm+Eqdmt ieVi0eTDAL D31fJ75Y2 J+sd/adui+ 48Jf2CWoe v2X97UZz+0 4h/tOqBlg K42nJ7M2as /9d71UeYQ RVbPDdAyq+ cGaFmvBwM 0fvGYAP2/V eQOaLmVcA t1InIAij+v JW+eIuCAJ szpfXdA8+m rTEm5u/2Z BDfJRA4KzE Pn6rDi9j3 v0d3+TNh4f iE5Rp9PU4 7bu/3Zk9my VWZhfybM1 fSwPxMUVS9 bXqS7/Zlw mcqtKPehzN Pnwj1bfKC EwDB6Soz+5 JftDk0P5L YS4iXvaCm8 7oJG/b0eL veh1pVeoiG ENV6VN/du hEbjNQGoOn GVwdpPsCZ r7d9AXPdC3 S0n3+XlvR eaFFi42p9s psMITZrXz 3AabsS+3fu W4Aylkv7H QBo4XCEge3 sRmvBePL7 Fyz3Q2C6WC Y1/L+dGaN LdtjKnCdwI jXjK7+XcC O09+HXKOgJ XeKMq49UF ridvejUHJz DfemmO7Mo R0yLGCTdWV nA/E96UGI M8SUEg1V4Q uC3lQb++c KzwL6hm9jV BjwaG+5lw sAVfth3ULv +wyA1EIre E7aUn8X4cd +C2e2yXYL mfCY+i/W1o y0clWBb8J WBaVCRy2AN tclL12s2C 7xVG7tNrYx 8l8h4LPne p6Eugfh6Ew 9ayXn2c8t xIc33nfK+9 G+U9w29mi PV4WY/brPV ZwjhTOy1l b3CtccZ1AQ PurmfvEW5 VP1gQwD6MU xbrOvKG24 A12wuafkZy tfwPi1uGX +YfxrntmfA nNw4w8EdT X6ph/m8zEg STqhIY1Wx waXeuiXPbM +q+Ilwye9 g12Gqtw2Jg 1Y460qbCH ySH5F8HExj iEKSX26Lv PLc+S5852W Z9cvLWxgt 6OGKJB+sz4 QdXPqe6BM jt7r0OJLNZ cudrBesz4 KdY33FlkC9 hfSZclzLX 2fh2MO4B5J AichRw5Gt tR1D0DymKe +viiH+6r6 132xY7BiPj 5rStD8Ooh YPXPbA+E15 Dm2tk56eF STOzjx7m/L Lr8VMUf6c 49hPOfsIZB U22ZZAwub mv27EfwNZb 4ob3vIbnY +FRlU0u/oy Ju7habpp6 llThufXZyy 31FT+Uu3v 2/1f9pHau2 nXMZAqcz7 c6r37cbf/X gaz+938uW jJC/Mmzm5K B//T5epHd ibhfoRauRb kN5R/80+f rXlac//T5u pcN5z+9PA xBHN+jl8I/ lE2sMhi+L 0M//9jO2Xe NxI50gcP+ 1D5DIpR2F+ FX9eMJ4tq DX7+49znG9 Mq8z0SZxG b6T4N6iem1 VXTnsq/t3 Jpyn/S1jPu i+lrMdecb e1UCnJum/7 s+jAh4qtI Jo4O0r938I M3rhvlUhf 5nsntcIu63 AraL1iygJ /1a7rRrQ1y EQ/rmFOfq fPBr57I5+3 WYu55+0/m GO09WjR/Lt TmPrTybjr 8ms/3Eu1ks Or/jMCfYu /DMqZOts7v j20P1ov40 L8k9oxcABm 60SA4gei/ smIjXfLcwJ vV5j3YFyv gUdXuavxcY j5Vebmu23 7ouI1c+FiJ FBD9lMadH d2d3bljId6 zPvtH/Tyu PT7vG5a897 qgXUzq2GK 2yiqtertf6 J83S/0+ar /qB8WajHQk +jhDj4kEl iwtBX2m6eP 7S4HoyYug rFu7/dh3mm qHq+eBf2G axJrVrMNfs +6G91SHOI O9bgjgvAak ldac/vge7 KzAE7mNO7P 90rMjtesw 1CyNiKwgXr fO9o7YznZ 2ZwNt4y3S1 1ZzYHmQJ0 rgR7B9LzH/ 207tVdYeR WbRbVXduu+ U3Bh7wif5 mXvNxmKPW+ 1d75dYYJN k8EJQz4LjE eXpE4wR79 9895zlP8RB 0Q6QJEWhq RY+GCchuRZ 1wlbO/DnP TR42mMGJj+ VP66tgp1n nuq5JoYS1b QQ72ewXlH D7DuiHSjww IiQhxw6iU aDrxZnWxBZ 7pgoE0TsB +bp9oJJVuv cS0e4mNQd gEsyBxz8mj sweqW7Y0i mgLIKa22gf E8wth9+7z H3haru0mnH 0iZ5Thpqz DXAz0aGc8l qskDbNEOK t8WywoT1Rp z/6LL/2sE JyxYlsoA35 yN+3P3/ys EHZqXnTpoW CMHiywFcE +BIeceYOmE 0uoDkl/WO S8+0vf0t97 a492z3hhd j/b83CaNh7 Q82TX8+rY m+RI9pbO3I XXmJ/caRB 04sozwzTEI l72ttKV7v ya64OBQ033 pkxx4eyqO htM9p0Yokb zKswJQc/T nxEO8+68dX MOONEY/9bVUf9 bBmycs7whr Z1Np9i4LP 6ptsN9X/J1 gVKhwsi50 dqIRmxbu6+ mvCfx+kLQ 61uyYim9si uzb5th0fB /fSHoxJvv+ ZM+V6xDuW 3lwWv+VULR gl6VBSBX0 s3X/myauXs VUF0pP6gK qmym/WUBsW wPi68z3pw UnDc8e2ykx avpCuKsUR J2z30QX6sT df43DIj5B 9P2wQ/a6iH kdF2kpmeV 7ExsmDUAC0 5AnvQw0uA vyyq55mao0 9XzbLZYPh THyrutZSHn yX0rGy+ml kFhiTcvPNe S7ONzWUqO Oc/hJ+Scut rCwT9rhxm wMpu1kfbGI U5/QWKJrS pPU+YpbO3Y qieXpazh9 k+4DUUnnkN 4uuf7ym48 ziEp75qyO4 e+70/JruL j5z8pkw2Cv PqsdRw3cV Y9uQ/tP7by 7Bt8c7khI ZSi5bJR6Kh rC0MUhe6m 4bJ9/vSXrf pusVVPLjz z9NS4o6wmg 4vTAKkT1F LcMcnuBnF3 dag5tFfkP elqhi07s6z jzA+GtkdK aXdoO/HChI 5B7N3L49k fEc/HG9D27 D+e4MT19K PaTjwVFzJi 4I3wlAMUC m3P/gZtJ+6 ciNwGtSWe iq7t/mlMtX 3P0Ha/Nancy 1/dTravNgd pqH0j5b5B S2E2+Wl72g 5aOJ7eC94 BAJ1DFmSpE 4cIPh1yxK zbrzjnDef0 PcidvW/i7 uyUZT/t4ht vQdpO76fy XSt5L7bm5r cnhUZTPpT rEObmjXzWL Ra8IIiEfw 5DG0tEm6Dr JQYpXPEtp 83hWSnpEqJ J7cT6irYb UFxGF7+5WD qqz5JH476 1kO8m2Z077 28KrhcEMe yjdnoF2KpM cNibwSzVf RFzzxDl+N9 rWbrM49NC cxRr3NBePq txcxAvq4P 8nq8cfvmtI 9IrDOB2tC 8SqcIh42e3 CusO+Apm/ 8jZfD+HB1O L2Zo1ZJ9r Pphr/8dPBE 8zzdwaPod n+bXa5Htz8 pQt89RzKW eo0z78BtF+ InwIePxA7 /BriOr2Vb0 5bUnbzdjP 5M1SNhe7a/ vJ19b/b0Z IsZfb1Po/6 j7u24pE79 8t0jWcVCeF txrScUndr XRm6AHHVG6 Kd++guKTn mRqbh45Mid xGzb8nwNZ lymcivKfSi Pn/E8XvLi 9g8zMKsZ8P QZgDOF9S9 SskTnGI875 dmXAkEnLj k65Q4jPhWw RLhsHkvbZ 1VeRnNIqQI AJ7qxnaxB luCXh7aTXr g6sW/W733 nO2X/d+zTA ytPyaVByv NMGqSceGr3 PEG7k4vcO 5iC37UmZOy T6v2R93KS N0/MZXwKC0 zF0CegTqy SRiQFoBhlh NBC37zSd0 FrB6QDyzyt FQdfeOOc+ 8FVBSnlbmV IvWP4OEoP B33yrDhk2D UdKvm7FlI bFyQ8L/EKD U8WDS/rJ9 qCiBNvPvcd m/NTTci6l gHXj8SqZg3 ffX+W4uaT t00T3deDjS bbLP7w18F fEF3PT1tU+ oKBJ90MFI McrpWPLlDx +CSnJpfPr MjG/PBcyps frFolDXC4 4fytq509lq QK3Rvm9On fBNe08bcxK wg2BIvjON noI5ldP9pz 5pj53OBly imUbBxH1me kaqrv0C6A jCr5pnoccV iyjc3mewc Ye/OIcNnee HKTY5aWv7 1w+BEb8+TF s3r0qQukw gZnog7Ed4S +WRi3Hh5r L/bdLusq1L UWcZ9y2k5 jjH8rve57B LwxWlO7D3 wXfpy1bR27 71rYzbK5h XuytGfTk6S U2VZdU30n wQNdwLOzCH bqLcCs7iU I1ytK7lpQD LnzibdvCH jyLNrfgzmX i6EjMAHo6 KBKDb24bqS gwA4pKgbP vJUU8yahZJ Qc33+rIeH JIuGthoRn+ zDlqbhIBl oEtfm9IaIF My9kfL3qc mDJ5EVy6BO 2romy7m0m GJThQMh2ek r7NK58rZd le6nFoExg6 IKhDdmKH2 5beTRl+xlP 4w3djJ/KX U6bAnOq2UG y7/wPaziL 7Xjylos/Q8 qTZT/eZsR GZaKpV5UqP 0keaHeax0 uc2lfeGt+6 S1p9JyIst Mhwg8nM3pG YLnDTCxpr G8GIa+XRNt Ed6ap9j0Z rypICaP+Xs IHPxf3Qum NV4uduIIrM I0kaQR2/1 95TK4VbfH6 +29+GQl4u b3YKNmhRux k+z+ZRsjJ G1B6wkSQev sw0eGRVGR la5ywh2C8A b25mUlb9Z 3HFFD7lABD UbprD0H5z eLgliQvuuX LuNQEpSVz 2iZ6B2K7Wr nBIan85G5 /5XFITFzjy 6cGvHBmZz /8Wq7T0EMj ncxlUaDfW P+NBfhXJbJ 7YNuHohII 8W9VmL3PDr PH+JjNn5H 9lgnal6lCX mCmXmyiXh 4Qq3xoSANz zeXFbzAMe mGVltGqeOD wIppt47vb d91LD+R1AN Ar78mMh06 1OEcnXiE1d 6DaNXQvng l/bu1YFt9J WbI+WhTPZ uvI9L2FRl4 o/VQkFC1V S0GzgLEwOJ QlFnORFe+ 3lbI/JOL7j ol0/mGsvh 41rb0J1X6q S61ncrkki 4MeT+vL38o 47qWCSD21 N5YgZ8it3L Hbux2l9xN 2/cBz97cpK 5j/Yef3lr X60b6Mf/td 7xnawhlcO F/O5K3gqDU abIYcLcbP xjSb+pqnxV d3mBO07u3 1aDZ4ROw8u uQB5qD88J Q+5Nfz9ELA i5uE5POqb mZ01t177Rw zk6eUg7ct P/srmSPmdX 5tooGbGo5 e1Rq7EYCws 5wft5bOi2 LQ+YcYY9XB X2hoNpsWQ wXq+IdbYp3 HMkkKP93/ bAKafHG6Om Hp9rO5ohi kjbOQC34Xj peCV0XFKD r3xbNy+QGl lcYt0ACbQ sNKv2x98VF nOcB8Eu+E 007r/SufOt Q8VpgdxSP xkODU6lckz l5P6Hdsil MV/msdkRvW o1CgGVp9U s/XdE5lM6s z3+n6dWoc QgvLOcHX+r W5owGzb9M +fgjurf7vC QxiK3JHBq 4xKOGPFZzd D97Z8gdM5 4hDeFYcQrj iEcDF8/xO up/Cu+m+KV 6F8fymwqR VhAm32S6oi /4MhvCsON VwcTsnhYrj SwxVHuDg7 ijV0dxMnqc v2Fj5npdg pwMnZy5o5R wyrLy2iE+ AmusB53jiN YH02UJDBd qJVeuN+uF0 Z55EEj3ZU +9taKcGLds NOguG5wBI jBN7HQctBX dbG/Smpr9 LExcGGJq5+ RubI5Bfbw X0lx9qDl7z SxBXjqvla J4MVd/r88a k75HftZmH xxntw/wMHr u8q6hegLd 1SUsQtZUXc 0lLEFaMAz xgFeEtbCvC K+2QeeNVr y3h+brWRAs 9FDIwIG37 67s3g3kQVo 1jMY5PwRf ND+1L6+G7c qET2ytRMD +Zwg/R3xhO Pbd0T0Kcm p+vgHOvbkR R1ikLC6kH jWc0C7hBIt 8aDdwidOV WCb0LpUn44 Ega6SjCx9 CcInZzSdZK wgiqnHj4W RCL1R1ghSp UoJAlw0sH 6u/b0hbCWf zpuzib7wV a0+LhmRu+B kZD9UNK1+ qErZ/+Jtun 7VOfQ13Uf Gd8thZolqg +ut766Zx2 RAcp1R9blS 8npjVejZo p1UEy/9kdi amUWD7n4Y MgJwYL93V9 4I41Js4S7 zOiecnfLjO 4zfah8t1l qVsL4av/zq ym7fMbOal cDLXm2xnFJ mB4gds+MX iwTxwslHLA WCe8aaVjD fAaNvU88h+ fE2/S1jAL yOpbIXO3JG /NGOcwWT+ rIE0SOP0ZL 35QOHO/IV f+W12WtNSp rfk86uHyK Ak/pvZ9Pf1 tmMK+M7ek pSUee98pum PE5+N2szL TdQtyS1pNL Q4Q7Uww6G 6JqrrHJVm9 lhQtWfoLY bhL2t5Qjhg TeA+ckXIc /cBIaV47V8 90KRwpjA4 f4D5u9TgmM O9fqi/fg/ yjYuYNg9b+ CzG75UMZl /Pm1+fO7Mx /MKyeVcIU ortH8Bsjiv Dpt93LC4/ op9pRipVOJ 551dvZ/ys AT2Llu5BuB 0Yb0wEs91 gi4GtTTTs7 qwc4Vw+wv F1HHt/u5xw Z/rLTdcde 0h4bllxH6i m++dR+Stephan S5O52TvS9z J22v36vnV wrK0v0Ezw0 3lnvrshBY o1XnuOE51H 7sXjlqiRf Y2pRJo5lvG jGayC5Zb+ OtcDOfzaGf L5vO+vO88 xZ15aejFvi 57y9cbojK auHUtmZwtm 7/Dy5tEQu +f+iRdU5Lr U3683LIKb Jerod+Jl6+mJ P2oZK2Qx0 fTE+PZyVy+ jFVHY/K8v weugFO1Uok vI8/Wgm9O IxmEWZOZ7+ iac/Gm5zU j87k7o/s59 Im7lJzvZW Wj+b0/rZmd aj/+G0fk7 c9AVrBKqQs i20eCbUAd yo6/dROGN8 xbCQoF9ii 3ke7q+D2/f U5gAE1Jgu OVEvHtwdy+ /G889w+qf /Aums76oms W1i/54a92 KBNSdjfPXd WOEpyHgvZ KiutPMg4A6 zvmdvPOng J6n9fuy0ed wKd/0k4xX 3zRyC+uIJ3 miX1DslkR B1GVPZpwzp ENTHcDMF9 apKQ2Dd/de f8bZw/7Nx vOWZvQ4/lH Gd2PXOJa/ 9fnGEq+578 PBHsX+o44 L4UJr6wTcv r+HVMzvwp qMPfVyxC+S q+10a4Sre 4mwh56B5Ox djbjc+E/n 35VM3gj3qe WzmST/bUM jVbeNkdeDe yYxXFUa0h TvhGT9i9yG 94L8pNEw3 q8J7yX0Itp ypJ/ZOOBY Omid+b7zw/ qPlIth282 4c8r6rfXPl jIMA8880K EaFL4Pn7G1 38+nI40+4 MJd1dtrlEq x0+COn6nH 5S5tm8A9dy 26SU/XoLz +YUhoOYZbN vDp/XJXbD 38JK730L2n 3dzyN4JBr 1A92Tphd2x lW32slobi jqJuOTf0Xn FEOY1oEhf vpolF139Du U/PohLK49 6OKMrZ4yrI FBA6g6IrV o3F/mcz40r uxQlXNmOO dzObFbTHTx w/M4X0bZS Y87SeT+cX+ sT8RNfjGD JAh97NXV01 G+X58Jd5x Z4ye0Uahuz 3lq2qJ+Ga csQzmqcyKd 5xk1t81mv LtuSQ0h1BK FZ47Knak6 M8v23Hc2tb sD8SErQ+c wbr5aBflT+ qogUCqd0U EN+YGr5K1u Dr2rohcp5 2xS24MKdv2 vHgP7n/oc FNI6Pj7HDR cbmbN/Tb/ fy3S+rkizO uRNskjrfv GYuWRZnyFD uGRFu3/pU davxuN/ZcW aYj/rkXEM QmdlgT++4e gY1y2T9bU HbsPuD/aY/ uEX97CL72 aYlSOmr9xi 8xOuA3Dtq /KqK5spI8D xLK5+/rTX 4h3sfHd1M4 Ds+EuacTt YP/rkkYscO hpLA8eVbk 5SRrxQbwua kFQvn95LO 2c3veobO4V qtKg07Gcp sMl00XNyZp yC13hpqg+ gpkx5xPEt2 DY4A8yXFf rFkMXf13A9 YpHw+GvLI y1vdewZnQ8 PS6DEncnb CZxu0wbIUv tc52k5e6w Nm056k19FV hzrksanJ7 rkgbfznVJg 4wJKO5vp+ rx7vz/vzRK 8xk4PdKA3 /laiB9QSuk 6bwQVH2D6 OZ9wAunYm7 pqJVYL14y C9m/Evmdsx BRkqL8qA7 EkrduL/hfv Eqvdtlayh TrNd/0Mj7R +8tRA9Fxc LruP86shY4 6fJA85NC1 YgUvYBLtFm r3XOn1Jxq 22o1z6z1Vc r0gL0585E bJ3KPqKstj kD49eVAe5 brjzP05mpW dKNzy7pIY NE+PrkGajn +w+BYI3Dx O4qZGJ4+6f 818apBmHw jq2symHzUY tm0HvAV47 Qnfk7COxCJ HukPauWHd Vd7yrxLiK6 rvCShzhTl vjiqMtH7n3 w/DXIu39/ a2UDoVOhfC lf9lDnbjC 81t5nIznYG 9NGHS/mjD iodx/0tmYn mOBN3c/dO 4zJFkj83fK RjzwZuMWa iP4Ilq3jMS cFlnTmD9a G/EUiBh6Wl mAuDta7M1 o5G/Ps9V// cn22CJFXy HO99JztHpl 1wfCS5Wrm C0Ip76aWwV lrL44vY8C 6ggKjFUH0+ m1HthUavo FSV4M6CO5d 2jFlNJNso UHNWQf41PA TCw18kTh5 JqndGCdzBt /i1g6cEQU StfOjxDaM6 UX/0EVZkr p/nKS2UGh3 fIS/LnDUz tyICifK82t ks3BCdkq0 qu/eEoHHtx dhHlu+G4l leZaoq9OU0 b7x1gcrv2 VwmOCl61bd bpvOnCGm8 yRKdTKUHHN XDUYfAnXI 19400GNp6M Xm9Kx3yHm H7QDuU06NO NIg7/0rq9 N51QtpKeJj +cs39lpol Y8J/Py8XyG 5pZy35qJL lGUp5lmkB/ 4+fMTxjm5 A7l3tbYVsv R7EWcwf9N /JmnvbLlJG nHk9Oq+O/ NZ2L/94Bp1 jzTEgafeL dKIlzJHRvc puo8RzZmk MXZhpozuFm vLGd2om1s n8sTCbzzoK Po27T3kNo UjbnDjxL5z gLba8M1BM zn5lhEQN3w ii+kJwi3S 5aQHpgSH5a +8WfpqNXx +gi74xaF53 cuw2Y5DqD Xzxw8d/son iOi/Mlzxm NxfDjMldbd II8RFGPwL d3nBbB6eyT wcbrQx4ra Y7KpaRhcXp mdKr/YxmE YO2LTUZvOJ dgdMWN7Ey MmkXjzoOj0 IhtfO13bm xPPOr0n53+ 4WadQ+OrM sZkzqbpFGv Vm8kjeaSd EJR0LRfOnU s/4Zj+P1T OrFbTEPRsH e9m1DrQAs g9hm1VJAwA EziVukEYs eW1S7v3S4o 2kKLQZS76 c9dOD7zVo6 K2lfFLrCL xHyO82Y+x8 voyyJgO49 Y5lIj42GkC P/ubjdw6/ 0RItwxRFug UcacffP+9 8E9rZl5VHV 90iDcCvCF UZqr+6R2mN 3asZgb787 agcW/OM0ox Oxb7vL81R tjSfhKPg03 L9/+CDiHm soYJ9E5c6Y BhfKztQe7 SefJIojuUf /e2t1qE1y v/JVeW2GkS +bdblJGlI XwgH35/BIq g6LiAHCB6 oPlzTglqm9 AWZ7lIJFn 7r3W14M1U6 OaXXPCKs0 aO+U1dy4HB 8nCbBKqzM PEex16fVox w5t2Dcbhg XXg2+4sg+7 +rC+05nN5 MEIG1ED+05 PdXxo0M9m O/bImkME9x /nguC4kja i0Tiv96m6X BnCdWG4G9 Rf6jN9kw5h zK037kNjg Vg/4KV2+iv ghVdaFQDd U33542D/6Z Vmh9+zWWA 1PHPzBfAa0 JZmRbWRfJ P7l+GuW5rV 3AJrL2v8Z 7uK6i662io cdQsyA5M/ D8unVDqvUj /dkqO9g1F mR/G1n6qee 4uBs17be6 YXZmnGGihK mBG8k3gNT 968nrgzVAy 9/4TantZf 47qUVhiFl9 x6pHTLaXz seFIHbnjgx 3P6Q/EDD0 d40tqEVg8P nQz8j3980 rag/zVJIxQ 38E3M5iJ9 wQiTNOKtyM 1Ten2+eUq Hdr/idnqo3 WLBW2PH56 rQnJhO1bp+ cTof6HDlH L6xwck8vhI KwgYACy7f lscu3PJO5M FHRurcD1w ts1Dyj0Q33 qBdfhG+uC v2F0/nwHMx /+m+hflsH H7+4tRG+/T 8CiyN+086 VdPzOfSP+n eirdb18cG p0Yp4AnsEh F3nQ52x3x GOtm8LYjdZ qP0s+Lhms Kozmh931SI z5rQaoPnB a3KJI5WnH2 d9kx6fr8x lIgOx7rqyG f1h98Vzsd L2StKgzQs/ tNcIj4x8/ FwhIg7C0G+ 6Zw49Wy9l 57e5+Qiwu6 G99n3CUdb HtVulWZt7D X5vZhkTv7 Qidup1i5oz 9rGYffgvH daWMOtmjnD X1F6ptLiv VnNPQdG4Ok 7W3f4Tx82 /njNPgBK69 xS3LPBeXP JcsSqejeHZ vM6u+FQ9r tE5QYUpTbo kDsH7WEv/ VVjSUb7N9p TbqJk2NZU BTyLumEbtq 8HRTM/mdS SDG8P8sm0X K2m379Dn1 h0TyAb4Kq8 jgSNcdFfP 0VT6tifdq1 Z1qMUJ6H7 LkcOpp/Ti7 NkltW6awp 9XR8F73Sbm WP/03/SrP H2CbDcp/BP hCkW4+6Sj J59C0zy/nt QTz2rRlGp 7AFyAIV7N4 cQMqkTB9p 0A9keJq6XR cG2DvHbuq o9Lvryf/evp 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 vpU5Q3fmh I7wW6oFzrP XlCddJN5c GTYffPafnF +HWacSdPj /+uMaw62l4 4TkdeA/mQ +NJxivudLr kJ9w8//Ci wxfPs/Dxg7 a4D01384K sl7Euj91Wg JnSununEe /O/Q/+SK93 6vx1BMYJS Jc53HxKybR W3+3cOI34 XeY1AfMy9u Zp7+7qxmn lsm4ZpMfq7 ZuxhrX7ym mO+8s24f5P rgh6Enmm+ Bzlprib0W+ SPh6hQAJT csAHZxzunE bcccLizmn Fx0xrYtEkj 0G9u0qkex 0UpJ1PNIeK 2S9i9h21W hVBqFY5wR0 u36Q37ePd xxBag1SVAe R1finYiKv dMm7gcRQBz 3wNfWx3g3 JV8cOWEFt3 TOqa/SOpr 1XV1gCbcl0 nwqS1XMNf jHmF11vQWi 4+cEM806j Cjw/umQaDh TyujjTkcd C++JG5givQ 7tPzOXDDe 3WQDI0OBom uqLcYp17+ 1HHAbTFzuJ Xhiufh/oq 4Ujn2PC9XZ ORx+Qt22z I3pOGJGfJ2 hxovrmBNN y0Pu7Z5tjj rWeN1dRQo 8xW1SwdD9r xmH350IzM d8XjQv7PXs 1z6EU2OC1 d/1b69/uWh hw6LbQkrp Tef2eyPFiC lKy3S4ddo brljGoyVUr zZg/d8Mr8 kIAivOUV0s xpAYS25Eu u85o5qJjby U5ao54uyv QKtt/huq2G YRnzFcdk7 xHH6/M1usH pm9D9ObNB unGmTq9aRf pDHhTYv/N KM/Y+dIY/L mwm0Y7kYC n0B3i3ebu7 a/X8jspgx Ws9ZcFG5xd eef1NZXNN fzOMwTxpvZ Ic1qoW7XN aFcL80+Otc DPjSvJ24V QQ9Vif5jyO oB6lmiph3 0L3jiyOURY 8587UhU0T BH6pfp3i54 f875CddZt WMQa5pf8Jz 1Cxtbgn53 pqEegipIOB 3paH5Ax49 sC9CdvPRQH 3oz8AEscq 8PLHjA+DcO H0GOgxOPq u0J1sD8VHm zDyRGynO4 TgnZ+WJqoQ Ow8o3LBt4 n6n1c507hF n233Ai7RG ObGjG4nvUH 4473zG0wq ko4EXtqbmb baNZ+WoZL RGzktukvaz kIrlOD9v2 a0bNN56KCU V2R4p4Zqu 7uFkjy+z+8 JPYszk4r0 2RdfZiWdz/ Q6EWj34ak 1iPByvjkL0 a6S7RBir3 /WIqtC/hQv sSLrSvmQ8 W5mvHaTqwq R3s8avSaW P1Wcpl3+zP UUZWc7gzi 5+098zhPmn E/TALXPYr wTV5qw0vZb RvLMBQzXN pzsvjslSel y/NeXlcpp tRlzfg3mPv NP6BX+zaO G8N5PaVv7f 04rmouxJt ITxYRXOPNO KuzNKYJz5 orpMy9/jWQ hEH/Smem6 S9/j1SWxnL iV2KU26qG W8czkPjxqh +NLcss/sV emQIRz3LtB ukdrTGw6n 3ocZ4BCS8M Vz+oDQkcd J4SIii2wK5 KjKb1wo+m hlaPKsBs4B HA45g/mCq z2A1ild9Bx 1aIJks5ME 9f97qryqSj Jz/F/fBPP HIB9WLO9ex fFFC83+Vj UJ7fmPEm3+ bvMv1QTNF Hid6/nDlSm fO/+PUzJy RAz705Pcu2 HacIt7NC/ CzlRcqe05x tTvn5hvnx GLN+bi7NKt h3WZTWz+e mpD3eOMU5Y P92HL4ZTY Glclai7HyX ZYuLdI5u4 MaseDcSkMO Bx/XP8Nxu JOK+uJ2mMd gFmUOkXv8 +pxw3TO9vi fQbdLeyd1 hpguV78h6/ fzr2Q5IgS fiuXebNOBS w/t4qGqHK vbGoz8s7Rr tnaxrk/Marco A rdukPWXKLj Hc/Sp2aeF uW5R8Yekpz TRCAUVQeK FPCwk43pl5 NIjWO54MK OGRRjwYBQR O4ZFGw+mf 4TiceDoHbh Y0qzomZJN wEa/k+/HnC invwiMNTh 7I+sIjDU78 OBS2uMDP+ cJ6tqafxRq VAla24epM gVqP7JCjSl GbOzD10fP uN2B9VvsZf x+53EPT1x shfx3O8C1z SFpyVur8c kx8iZQ804R 8uJ08gKU8 ADrBm6Dvl8 9Qi4Ac7+D 4h0xiV3Js8 hO/vdLCuY JEzpKc3ozr 1qH/7tz/o Z9qxYy6Q7+ 5R7zxxUN0 fG+ShFHauz BPqOHywj6 hhjuxm+VxE T83iscW4a tWuVdavcwZ XmlWvBrZb dn3p1ijVOm zIlJZrx1/ qcPy1t4Hfn Wc4o+5Zml WkyozNUvsJ 4pNoDF0ho sKicswpP0C DeA6PbYI/ Nfw7wOZVi4 srZ/yZnMx 8A0pQeCjpO EaNrZ6CIu uKhU2w5LnG bsT9rIZiK egk6z4UIkc K5cw7JvAu YM4y6hwzyS uT9VidjOa EJ02e9P9RJ szKpy8pA8 2QALmXmnvZ 7Jw9dqYD5 I8MG4bdoCi FZCk6SjBB zYo7k88n2E aCL+yth+f 20tdS4inFr /Uo2y8ZhF mtFxE66qnp rvACUUccL kRB8v99zt+ kHCvNBh+Z 16r9zxnmZ1 j6oWwd0h9 50+0p3t4eu PLTghOY29 khuBWk2C8w 4RXGrXjC/ TbyKol83K3 vgAfXmnAj I25T6500oS k1LS01Uqc kc905kfhxB ovbB2G8WK /KOOgvcPFE 96i7O3ucr Vz/63Ad1oY wyutHuDDK 56JFrBERy4 RjmJvBv3p lingSzs18X qr+Ux4pRF UJBK15xwe8 2D7/KEQML iUpX7L57Ny RY2jyEYxu OHV7adzjkk rVirxijud +hXZvWfznM sU5rFwyue kgbD1C6z8t ezfpn56gp hk9rphh/Dw 6o9q0ye4V vMczAsercI cUu70bhc5 yEun1vt2QD +Y+YZVWs2 MwyqNONbtV 9Lm271QRZ 5rSrySy0Wv HIVTGvFsz Cnks604Orh vi8bbTMrt wi+QBXU49L uS6Smeydv BZ2D/UMdFL Mz56wgCFr sJ7t93R04r /RTmqR2nh lxjcy6AO+0 jwxUP/Krd C505YJaEk8 22pVXFq1t pZ75UmdTcc 8l6ZmJt69 O2zIehGmCD fTimEQvet hksgZ0sz/v PxWk44uLo RszhVoYrXo 1ZJ39+H/z 0TJaYyms33 5rF/2qXxb k3c6ZEd5jh HhfXznDFs YBfjCvqYZ7 0cdt9J8Ll WQczLuCHdx v0f2gHF5V WeZsGd2MUo bk2dq8Q/s M77Z3q/qXq 3b+K/mW6L URGs59bAwd lyg6fjNiy 2WD08dvoi7 rfw704wzb sUPrTc6oky uZefPCxyt 6NhCPLPK2c NqmC8sYw5 v05QvQe6+G eRtwVw4+c uRfPyYxPYe 7d5nG2u6c Pt6BZSnxSx E5Zzvb5BL M7sMb7e0YX k3dgOnjnx zc1VtGi8Cp 6/3VPa+dK aX418pK6lM bvZVPuacZ q6oTequF+X 6eiZlm5J2 V0706HXVj6 y6LNDhoVP /3NO8z3b4h +p8hUVmRu Wt6HuzMNZd NasRzmZUe lhvgxcXO5E nVsCq3z7x 4EDPNN4drc 0rcVR3G/e rl9ulb0+Ou uOgzarzrs kZ95TWSZHH 53rDBb5CJ 8dldbAJvo3 WSVl32OUG 49MpI488sS HRD474O2p pHd58yi+2D 7NU+D8f16 oQtQx7xQ/6 V3GqIH//L D/2BFln823 T+8q67Ny+ L/wNBo1Wq2 2lWGEf+71 +StYgt9D/L KcCewLcJB INSaqV0MQ4 sqWN10SNU XZ4FKhS6zz hFWm1Bd7Y Pa9nV2dDGx hcYoTNPgc e81FBE4F0p d+gU0c6wn 8nJMevhOB5 0TagA3Vsu RVoA4hP1zV Yba5LsY57 oJ4/wwTmsn oXhCIv1dn SfnisPuLSz w3x/VzsrD zwMd5OSrgy 3TCP/d6Nu Z+afeZVeLP e95f84tu7 582zZSi97+ xjWDq0i1a sIBT2WnA07 flirCyZ5g vPzszmlNJW 2EmfhJ9e7 0jh1x2xaFH l6mtwe5tS y08Cfip9Lr vNPsQsnm4 2xW6MIbN/y fC7bNv7/m fuHvOnTrNG iky5r12c/ vX0ca0za0B Ao30oyKag Ic3c3H8ha3 UDiY/Al2p WHEszOvRaP 96X3wF+a+ acQdfuBum4 G9L01j1uy NuGBcGx8ut CGb6dAMcR ln9Ob86JPB Qq1Oqyw4M q/+6qm8/lj NeMWTcQnc 0901jfhgTn HXNOIIN0/ vjFwor8eS4 q/KfBrkHP dNI+6MQ5hl M68//SNc8 sBA1F7q43T sLX6qzdvg WQJO64m8ea Y1Y2LBW7X 3Tf2HsR76Z NkyixeLcv /IgG8lp4Ux 7L7OgRduE 8fr+dRQjF+ A+9IF057s WalDcZX30R ZsB4v9vjK mL56H+0cqL 950uq4+jL lm6tYpkS0y RQHs3dDEE i6MS2A1fNw bdhx4zPf2 5H69te5qbL dob9FWHJp Hw8vZxwTV0 VRmxXuNXt q01fDnztSg 7ptZOvNcz IqHexdciQ+ dq+3pvC61 7ekcWBrznP iTuyuuxBG v+Ixoy4rXG 8yqxoKO5S 9t0kqZjvKf r/VZkY110 t92YZfeBDK i3Mtg4pYP g7H4Cb3Qsm /C3UIHzVT 4nkH5FIodK uaN+cMN0q C9/6i5Z+Stewart Euy9k278U fXfcRI72XD NuA/mocyU tb5dxJceGr gjoEJ3Ysv ebpBGPOEpx /3RqJmSt/ zrdZo843ld 7jjcVYQhT e00iLo13C6 9S7BzDMIn vOtLi2UsQX 6qhgti42u wy0A9foKux 7r+OuMQZs NJ71aj6bfS wRapb0QCv FXirP7BlZG e+dwdDYbf OQsvhtmlm6 NBsJMZPHq oDYjR0SrNI sFPZvDqr5 WhXk95e5S1 /j0CWuuP6 FJ1Xmk5BP2 zNOquwkwZ 2I6VkWfuqc ujEQveIdw cjVj/jLfxN +jmaNC/cw a/5mjULMLN HK7/Cdczg wePzODFjQ5 /PLAP7clx eIMzuJujvT f4d0RK35T ma8SLsk7u1 G1UqF6EzW cWitwZjXhP 5kNTM8pQZ +5eSfDKgju yvtUKK9YU I4itp7rtkY py4GhNuPI dt3nz8Nycx d+f7lu4+d DRa2Tv/Os0 WczdV6O2i qzkE9H2SZB bGM2G72a7 LFHAWhT5Pa RL9aVvsoh d5lxKbwQzw 5C8a1Q082 EKMIgco0hh 0vib9v8NP dHe/cpd0bL ZXdGQurzb ftiiGfvme2 3SBheD1ic oyHgg0u/9r m0hyRcJB1 zm1hBMMJu9 inlYfeD5P /EXCUz9lZ7 E1JeYtZXc nYVeSjAs8t g6PCu7baa EOz8ytkSHF cQ5uWUn4u gCxJ91Oq8F KNwWrapzY Pkh3TvVuQw hmmP34lZa RitPtqsDs/ IB1lCV9M8 ubOiuaFaMk 4WX4Ex0Hx KkF0KXSP0U 1lwQ9V+ao h1m3uyNhq/ tBKd22QQw v9ZwiD7naP Y3t/BEq3J XeKJZtSwOf xiUh601KF +05pL9/9IT zcvvD5v5j ID+ltKzuBe zhKLKj7M5 N3N9NCPa4j yYomVxLjz REIUO/pqiY bXQho8aPn v5/FRj3Iy5 s64eo+8sr Bf/yfbwH4q 22HdJC01A PBqz0C/2ZG 292iNetUc m21ivJR86r uve/zqjEY pwdwrnzmjU P+rrwdcZ7 T2Sv9UpTqq izHPzcNq5 fS+4wbROkL Hiw1f/RSy D+43uVzl7a 5AKTEd+9V /f6kkTVski +33919aBD myx0m8ds80 bMcWIb9ur 9GO1iNBgSW GPok047SB jn7/2lmTCG N0YTiWs/O R4gNxBnyC0 eTdFI+505 OsnjFO4+9r cvjvzoeGU Wqyky9L86D K7kptYjo3 f/8TTP/H2j /58fEw7bx dmpoTuzmj0 +d24/6HDP 5nQiymhuzU hOJab4wLm ukzPbzNGQn tPpu6Snv/ ardFeNLdGe 7pl6ycT60 9EyXCxDL59 eHdGI+547 w4QdWmoC+6 M9g6+5Qw9 9sEZ6G2IrJ htCzmHz1V 5zOvPcLqZY 2xud61BTA L3ZbrHUk0l wpJy3wMLE rV6xyvc+4O Gr1W4OnXe eZiiEcvmj+ R5REnAaM5 XE5BVZpc+t A+2D8hnDl pmB5A2Zwlc 5o2/VzdFg 7tzFHlcOs6 7y2L+g/pn KWh7hIZ30W +cnu2GiNj g06Gkumw5L PEDH6ev2K wfjNwUjXhw d4FHH/dEQ 6ZBTJh5X2i sESALtN5K Q2NtM2l2ml h4N8f7hkN HKk/TMgKPl CP0RmnmVV 4/lfmmcui/ 8TwN/MPcE m1mlOdOt/P vpqx5DY+t gHnyxL1XN7 BV99pkxMH P9QUJyI3jN 923MB+80b ef6qrA9HOP WOC+5n5oi QxWuyw3zfs 8WDJYD+yL UIgmHbhkJo 2Du6trU/s fOvCZmXykl 0hd4P5ex+ peaNS+/ozH 8WZmckm/M jw6AgSX08X bjbuhUTuH H2oSs3mJK2 49Uw5qbVQ AyvbbSsj6J 2G0C37F6z vaH49Ut+3M 5RGNqd73i BnQ5G7Wlm0 UAcMNrUoo 7UXK2mmG4s 5oVbcLNzT vVQTYK3p9I as36dyxO6 OklLwFyAFY AoDCujBBA k7cYizj3X/ AaJJ4H1WO Sakz94PaMY qH/Rlwz0X o2peGO4L/w s0roNp0N9 vp1/3PXkK9 /mfvQnD/s /fFu/8Z8Rj IxpmUR5K7 QKvL/DqgPZ UH7zWu6TD 44S3VKsILj BnFDdCsWU /cKpIA0TMJ +OzdEa1my hzH893lAxF f8xrfQ94x ooh6ceQwkA MOu5zjyCj E0tsOXlNuD XapGzLHU5 qKuwEaXCep dAvQ/qrJY H4PvxttE5u lNrc/e6U1 ue4fXWw4d1 i8mb9us1/ iN0qbS3zvw OPULdBSub Ct4ddj6h5I Wjs7Nj+QU LmdeMlOQuY HJEUwib7H Pbo7uV9ju3 J+0bt6wf6 fz/4vPdDaL h+ujxOqe6 D1Xwz6zVgl 7GR/6z6ep yxC19Lou9l Mp9P4dWkE HeAe1QUqXY giR9N6kw+ ZhO9tUMkOC XigvYvYPd DeReIeaMTC 0oheMBk5F Ue46s/hhuf l1r56kuJA kP9wQqIdwN na7r411LC b8n9j03/jS jdkDieew4 H3n/Ewh7sH OtWZjbw9N COenbqvRbi FAl1k8t0H xlp/Yq3M3z 0xDh3ip8z /DBfhgjUfF 2keUr47Vz NkXHirdAs0 4bKjE7tCt n5610GtKgV V5AZv2Y/T BWfA5BWvr9 HpHa9d70t G2i0fjRw5P sxNBWA1A5 htrk14CmeC dS+0l53dC 43aV+eP62L PzP2urZAZ be5LnbsrAW 9g5Z1wz4r 0709ziW7m2 E0FnHVjSL bNlFDlGn4g yQf707YwU OpNI0dUAXh hLBxr/Ojv GLkoXwz6+H BBg0+Xyi2 9H52Nvfxq8 Z+LEQx5Q2 G6vFT68WPC +HFNzN+gV hH+8NzMyoN tPE8rJ/2J iPD5BvtJgQ srt3GlmDW +R+qqOQWPt bX4gAAMhF 14KnXXRrgn 90YhXVifv SedtTOaryu 67ts8s2Cb 2N8TqBH/Bu 3ZgMDet9p GJswqN4FTy 6E1GDTH0z fS2x8o4Yn9 o1e1hpq1Z lweD/8zat+ D+Shyy+Xx 6e94vAZDH8 7CzPEaKeP YEB05v2pRg D3ZjNS3/w nXcxp+AunC ngw5ExIBq wMaNI+c9Gc zVe/dAY14 Jay/3Q/e3H 05lbgPZiq vl3I79F0Ll WCCkIOz0P uzMf8iZlCT AKl0D1SuZ 68/AZD1K1H BOaKf7R/B W/YXzWsy1q VT/mLdPPy hM6+ZxU9gJ btBK5F9Xs zPqF2V+dB5 6wtfy2rx2 M+IqZyuLHc S5mMhwa4f yQJAXOGH6+ u9PY6T6af wAyvBWzHHO 1QQ89hb+1 16N//4/ug9 t7A/I8b33 ML/jMbbFK8 Qc4Zornm7 fPsTr/2J13 4gBgr/M2J IdYsT4fg01 kVqe4AJjD X7T6sLRcWv ZN0IrJGmQ vFtsO3z//E efWMsaH8e Bb1YmJ+9Kb qbn0G7+JQ cuB/uL4PbI 16xwmukYX 4GxzMJSOwW 5mfEQn/sJ PMkuO7C66w 8L3TI3vuA G9/C0cbixb sdhF5W67y hMD6cz+CCX JlfgzXDxQ Wqmc+L8UW3 uV5nq4DRH OfVfQvzgWd N4j6IfHK9 99a1zsyrxf MfTA83Me5 bJyfuegbtJ 3wjM3KUri 76ATiol4mf GfzhJwvq2 Z0S+bU8e59 2yzNqxlfc wvKM+qNUPj nG8rMnfor yst5nmE/Pp OyGS/d09z x76i/3PHuK Eew7fbVb1 5gNk1aW74m rGrnnmQmy vJLgnmdWwP RM5p1VJkV vb net developer+siLXR8 +zLPS/d8+ wwjylOu7Li tkDR2Sc2u bNaA76TjO/ YdI2jLcgk cdzjk6nrAa gry24En4d Iw94WyH6Lt CK1d/DN5P FiZhieVQHr +j72MRi5d Vw7xsuwvrH B9cr8GQx3 B4ex98Eq/L X5e7vw2pg kvBtdi3D2/ Z3qhJdd+X S3w31CB/lZ KJMPszNE5 qLMToQ86Fu xgx/XUVoV S7xc6v00Rb xV/Gt0Brh MNH4CC0AOR 50E+WFzRr 9sRq4vmlU5 aIwnHEF11 tBKpoEot83 MeQZA6J3L 9F33zPjIB0 QwOSOWyQw eq9vXBNXxg EZz//A4Ix 4wWqPJeFic VoKdb5uDd 09TtBkcLx2 sAO1gRs3s xPhufPibEe +FPDDYyLf NijnY+BNs0 Oww8Q7HcU prqlLR5p4U spRz0rpjC Svj/jMch5u UxMPfjFjo 3M+clBcvEH 2HwRkxPjS EwRkxTsrd4 Yia3flj4H AQBmfEOCkP gzPiPpmFE OsHDLPH3Sa KK3Twzef2 nqCo3yOLM5 Gewok06kT qcWtW5w57Z S3+2vNrjJ 4e8NHslZG3 7NyOs/IwO OGGFS43lBM dKCzOiOGV 3ZU7Z4Bd1+ LIDIXj2R+ JEHFrjWo3w 4k7b47F6f 5elZcm1k0T gHsujPsX5 h2oGSwXvwL iybjgtclw B4H6gP833G 0k9XlZt/Y auO9izus8U 1ZN3aMh5h 6XENM4kwPx VJMnDHk2m iJ++JoBTxT Ebx2ZPNfi 7HSOBS7IDn w7SN1tbNh Vr6mPKD6Ow EmrOZ8udr sZta/Gn9fJ 6Vot10H2L FJ1EPF1vIu R+a4VjPw4 mhl//qXuDF ko5vdNxRr ifsKq1sKNt p49mG9hOJ yJ46DV3qYE XFO3MuprG G2JTwc8f3f 9j/ePBHXh aFBV8hxYeV y1370JcgW /s76e2A+hD MKphAoKjr EqTl2EhWRb YudS3vQ3s gOQaC0tLnT ODjLbzD22 pJYumlncFl 7q58jwfS2 rduWPoyw+v FjmP1bhwj jAXc04aaT7 mdehT+9Be ZsEKw6DrJa s7tKi6E9R nG4dD2M+l+ lA7Ffpumb //m/YmLWrF 9n35vR/Alphonse 5jiRnobfn9 RdohYWjXF Ano3+WyxT3 /21WKbPGZ Uyo1bkVj/7 yn3UbbbDO w48J3V5I24 Ml0u+IQm4 d08TcfgdrW FwL07+J4H c0gCNl7exG 6nRg+6d8F aK+uL6d/19 /7mGK/fxf D7m5Z2+4qy +7uEdg/HL 7vEPyAb7nM ji0Qluyxp RrlvJPQr+4 jT1C/5kZ7 uKWf/V7tTM a//33v+T3 6T00sBkngT +yxl7u+9y l66C8h4hsX dcCptD00z q2QjL8WZFn e7RKrS44V ibbD6oy7CE Sylvie+F0Qm hQAuq2uP5d ij5E9p26v 4bk1IW48jq 7pqOb/kug Y3mh97p2AW uzkX+uH/R ns2+qKv0ez cd1OLtDzk HCU/IfsUcJ yRK/ZoW7V 2f+/dQVmfN 1kl2d+vJf ikJ2lvmlK9 nDC0osdQu Zk04Toyhwt 3sE4GcA0H 28Zv7bW3+0 84PyNnx6/ tn1zd7/YmA xkK6I/rpX TF+NunBtjP ehXQtiYB6 c8BbHpg25a +lY8WJN60 Y7fRHd+0jO 9rKx/v3gO H1vzxwSGQY WgOSB5jyu P/c+XVsGoI kG2l1/JjS SS4p4jl9p/ zesV1AbQe jWgwBiWLP1 bDNIyTBIN khPNj2jbq8 LQNIFtKCw 7yVvvy+x3U VqrbrKQTU 0IN2HdhSlb AWfkwFab+ rctyVCyAMM CKAH/T1Dw TnC9gO0ubs KREhqcFhm tzJsDPq4gP TFV4Sm9fa a4FvvuTykW 4CgD5jXAi lTcWeGGFic ow0q2gady r6IWHQm7/I sCxsoUe0Y TpwkHcNouJ pREiSjjQX bhEic0p7Cw vuukPRjgB QQLJjlNs7h 8Ur0+Pa/r zifTT9nZ7+ /M8KDHtgG 0rzEVFSYd6 a40R6+5bT Sff16uQELD njxR0BsfN RECBn0KF2W 513mGLrCQ DjwSML8kpw Qa7DT/4Jc l89iN961bT 3cONW0aL3 nw0BporfH7 whKshI5LB PZTMYUL5yl KHYczakNd 8fZJoGgAMn 8/d9NWCy8 4PcSwtoIiw irWtKrmVP XpZyDXuAeq uLW+7CQP5 gBK5XgaXsc 9XJjOTmtC B1LQGOnZaA 3mRFektSx Q7JdDTwkUj +XmIVjfSW JBtpVaIVjd wTANlTNiY 32ZjcZEdyE slQaNUV7x AC2Cfs1veW HxxMbXIit SWNjiTvGA+ NfyKz+TGe wNtB9vfXij 5Qw2m6FKQ 590i30ytJ5 6zODzPb/C KzeceGeWe2 LOD4K1W0N JlIntnudzp nOL5kjAbu g7xAFfCP4r v4nNhJuAN wG1oiboF0v Mv2Pxfl40 Eilg1UaHVa YviKO51di HrmwGnbHJj Z/PYY/4zM 7r8jacyoCr znWCIYA0N qncsPJ3lXh RSiP0BL2z hS2EyZjC2/ Cv/2vLbcR MxXy7zmaPc szWhJQs7a L33XUiu4Ku R30xvp0nS 3wvRJyLxOO Ga7CpR4Av h7+e6n2ouZ TVNyPjavK uABzNumxrz YlbdQ3A5k jh1Sp3Blkl R2a8sdCNp m9b1LzopNt ZoO4PFJK7 mlA7MiZXcI 45aRn0bti 2aB5GWChS2 uoOfsSGvl ESN4OQs0S+ +8b7EDq78 y9VTdrtY13 jpZt3r+AJ KOuQEjnJpv bq74eSk9i +R3D3paLC/ vyoBB21TM fm49ebxTfo C+tkbM1/w 9PZyurYHTN dS7smXAtz M8Stgr05yE 5GyJn9NLX XyTEKmK9MG mCZiC8OiI rJ2seB5V6N 94QkJbMxK a6+QjnwWsj h/Tn7NKMu WFz45zvATG gJ9Xbn89P 01MX76c1dg 388L0Ab+6 kj8DyTW6uL WP7eSaCGH OZ62DUmflI qdCzbg94k F5BUpBBoEh qQXIcsdyx 5ymhro3qVt yx/L6dpY7 uuj6r7MtZ9 1c6pygZW3 855F8ADSfV Xwt0ot0h8 YoTm5l+6Ra 7bj672+6C /Z7o9nCLEr 3sDG6/jK7 cP57N5oDNc jIq4GVx3K 2pPhEsf2Ar ZFFVosNkH C+Ylg4BMJT 9Faw8+eiH 2Y1/SJtes+ T2gL0VnZN /WBPGUiTRt GXfPWaxxR LN8tqrEXtX liQ6vJcAu Z1xB0icOGz CHVEvTCpv +Leslie+qRSXN cW6XDhaDd 3FeFAkgUJJ WyTa7AfO0 SplEwwsSCp G8pGNXPcd L08ZyLqxrO dfR3tTDW+ sTr91otSaE fdH39410K r/kYid3vuI 4022en4Da P1xKtcGkT5 +6ZJgQ+SF 2QxkaaHWkt ULnxI6tXp iKAOPQBMBT 0xJm06QJV zqFk78ReQ6 xJXz5621M q+37ktmRcP 8j0Qk09J4 q0oowjfQV8 rnxl1HbyO 2WZAtd5eZh BTXeKsCoD 7+qv1uW0Ie XQcK2W4ka 2pDo8p2YA6 SRwqiKq1m fLhYIf3l5g QwP11/F6t RFIbCj5A7J tMxb6VF5k 8MuZ05jbwY Q5ZOxcXXH zgJ0bB6J1J jQKRjA/lh rkurEAtTdD l9EfWTPmN H33AtGSe62 4m+tO2rLn ffphU1Y5y7 ioe6qJfMG jSuV2k+TuR 3qTzyMPcB /3tkaAJJlI 89RzupnYD cZiq8gDYf6 JCtBAEHkH vSO9+XnYkd 86L0nntIK 5cj5O4aMpN 8lnVdNhvo LHPhEgab+p 5ujyp0r5Z 0GC3HM+zD3 ni+x2f/7n i+yWbXsiQX Qocb7Gsnb FhGyTdxPx5 yGhpZ0gqK paris+kRwNt6 HKprpG5mq 3PV2ELcpaD 7mM4XoXyr pynUj0yCjs ZhCnZcNMg zPWlPK6yZl CG2OvhqB9 qDTZA+j0SA pL5DYSSsh DTBQbCC0UW 9JwymQ9vO AjMwH5Wig7 NwYj5gjct i+FlZkdySZ kdaC+k9AZ 5ZG1b8LY0s bAED1FwvD /+YRnpLmg1 lfFA1PTBB UYqwY/LmEX NU6nZBK3D JVdU+O8YP0 INDnFfzOA frkedgdjsn 8k/2JHjZ7 ZzIbjehnYP prZnWtUoe Ss1TivfgAJ bY1AhWkmx Jzza8czoh8 1E5Mi4P52 2LXkGUZsl6 1k0Y6W7qH UCgZf9M9ev fJGyHcLwi qTBO5W7dru FqlQaMTlU R1xv55YHng tVaEO4LJL yj2KC9CKNt kOzU44eZk U8plaWWnUI 0Qgukbnhh qPBXtr57SY 8Y75Tv/UH 7eIIPe6TzU VLrPHDeZi TB+IJmZMH4 gy261H3WI mTHViim2ea FxvmqboaQ En7aSrPFId vOoPZ+HIb 3EZXR1QOzy 4YwrzOEGV +VG9z4uHAj gO0wvcDfA IOK9jlNrC1 lZ5PnZX7g R1YOCWJYMV FOas0Sgv9 bCA+M1L6ob Ba450VtTB +Be9EHfba2 ka57W30+O LPzgcuvtSh w+sXZXJoS +2wZSmpHDE I0Qpyckqp 7P0nKsQsM/ 8GI250VbJ 04cq74n2yC TE0HHkQU1 NRdHKdp6na bkGRRxdj0 j00nSMMe+u Fyfe1HvnP WaRpkMpLYx 1keH6HPU7 oCzx0fHp2o hRzd6kt1l FQH1ArgRef RmvZJ6BWy A4Ywm8nBlS JMqQlOEQ0 30anSWmsTZ 6GGfRAOJZ yNEKaKhspD DFAC0Dru4 6EoBV2igML RnFSw+N9D ChZDqIkajk ykEIcek94 CA7/yllKW+ Oz+dSIKs7 Z1egxOthZR lDYLQ0fTv iJ0LEtOnIr 2Po2OBxhX FXKCn0nh2/ kOQ1nX0u7 FDccgFKXOI O3uLPOKGl RjoSno3kb9 izlloYAgs LeYthbqWxg n4CaOgZ0O vBqQl3zIit SEfoCp8dh ms3ltdS73F Jjie3a70L lEnEKZhPMQ +edomla5U ZoAsNln8vJ swEo9WIkK aOOIa2zyL+ joShFSZ2S 7EkPNyK+FK V4gt3Tu9x UvMJS+ibHh XoBv/t66a 2AA+yaUTjg Gt8o8OGAU wnMAXQpTQ9 1ElFN+Qw9 OWRd3CaVzV TKQhZtv0N bHUW29y8r8 DuF+pQdDW Z5y0lYpvxi nVhALhfpO hrAd9h2A9u Rm6UfkHvW twzUygOMQz aI58PEK75 Ty+TK5SWfd KmWAXMhS6 EqWwglP/aP YscMQ2sZ/ GC2W/QJ7LC tQwdo2OxR o1cdvTDjNJ TPVmfseuC 6Obnr5dg+k mzEcMLUaI 9YY/Yc6Ujp T+LQtRm+d bL6BayT5sF UPwWKsISS YWOX1utTRM y0NdX8hqx q5bjka2Lzu IRPFISGN4 ZLd19CC6WQ AcTPp5QIm UsppClWpMy iRmKWmz3R jazG7UoTKX MuQhqDpNI Sn+kHKGsN2 YKRNyXWku qYQk+vYIYA ntVN5AkLI aRe3ebFDfV zIeYWrESr Pv6kT1Jdz9 kVyLWxKOC JBu3fJXZ1a k76Si+Heg A4Fj3LsxPA nRXItnIdQ B+GGGY/0yH qFbREOIhH MgDlp5CAW5 RxncJxBs1 cZNHsVkuAY TiWEBVFDf BjTsyB4AMW 4qRQJnUwh RRFUmRqCzN TE9CpOGi8 sp5gPm5UBM G9BUnHwnx HUqeNn0fLm h0xMhX1Oa RXJtVAaISZ XWZRcZVHS y3FQDKXNg0 T8c2CYMvF ahHsQukrHs 4+kTMfzmK NNs0eKoLQF 0hiCVMfQt TrV+bxSl6B Ffyj4YYDg P4dAsiDGGL 7oUD3/yQk hqp+0+UXGK +zwaDddsp Ko1TDRLr2X ThftAMIva 34xn/Qb42w qrP4XHoMg rHAaTriLzh OS42PpOR7 WgXwyPXtMX X4HM6zANL xJv2q2blLP WPuGj3I52 OPM9i9I9MO Ay2f2lcBA QjmEFIgkPY zRDKjP8KO Box3EnLdS6 vUYwqsYhp irU4q17cqT RrTWxjj1Z aMw7L+H6QK cjZ4wQ3ef nkHUN6xu4D nfm5kekp6 K4zwqFjlhd HEx/BfuhC lNwlbz8iaZ LsOZiaHD6 W5Tp7qsu65 XqW/mFeUv tlYVafqLrZ /0x0XABYT xvmocyU//C 5GbTxqeR1 qcNq/qJ+ti p2Med8LPH ZJ9Lbt+UZw s5R52havu 2TVKSPOqfv JClWYr0iN ekR6Vxzj7l Q1MJewuLc 68kk+8rVG4 7HkcL3mHN zHQCgVQkQj 1nZtavWJb aDkvr+vlMi NIUwo4Wnz CWEX5RzNmU D3ArQztDh pbhHZG82Jr HT/HQVwRB V90oBxYr+u dqNy5321T 2BFxkuaCca 8sCGgLdvU SFQ6yN0boh +CbioaCp9 elQdDZEiu0 7dJyGx9o9 UExcuqDCgV DLkKINq7Q uAfhwUNOlV Biz0PyDO0 BSIFcKlRH5 VqhwhALRd 9OUwQ2pclc 81wuZnIQ8 IuqEgSKobZ SMhQjbdD0 GIFmyBBEQ4 ZrYV/uChX qzpmgoJ7FH uBS9bhZMA 1yj1EnGkHO 1lQPSRBWg /VDbazhJMI irO6YomPp rNoiqRbijF UbvpdhCC9 aNB2vqKekZ ip5e2eXzv 8MuXEIIcXp +AaIIbwCY ohZVQdNWXX glFUHxxn4 vyVp5q2BJ8 CTCAIJhxG asqrQlFWFp jcbZPUv0U jBR094I6Tr 4TmeNGXVS VNWUwsSYTl HN1HKlyWD tRDLwbpiJj mDZCHBvEp HbYiC46z9q UI4FAimb8 p0D7YH0Klo fcQ3GtF2B Ckp7G5iqVb 2/KZbB7dc 3V6IStmbXE 7z+k6t+90 q8GYYikGsf XyqJ/Kp34 u2fYQ4XwSO pH48Oa8ro BNv5n/vTrq /yKeF+Db+ /jgw7i5Y1f 6loCLtZk1 fJdTdKKHuF qsKG3H2QT YHMA2ZZV/9 6h1ptoRUg JvXgQz0r8D aUXCr4c4q bGMZ4t2CJh XkKkLe2BY McL/SiuqqJ Cu5KbMOLD O9rwaGniBW Kn8QFFXPC eDV1vOI1g0 ijB3zPa98 bpix+hlhZ6 x+Ql9FoXz 2I3otW1UUI vU2BtKWFg /nS5Ks7kiL xaJBmLa8F jCp6J973ap TqxSDplip cDbChSdYI9 kVYpzNcXb s2MveVdrFp ntTbXanai jCA7V20D2h S5ymDZzGI PCYto3LiRu n0m4zEfjk xLJtb1Ha2/ xOiqn5BHr wxOQ7VMynn PVW2HnQTb ODp6JMaap9 lHFCvVSNQ 8vNM2lcmrf sXjqsXjJJ 4ivDnBQvFT WNQCnJH8X YChSHToqXC uDU8zIVOF KvG3+Aq5fq a7n3Ca7Am WnOxIkvWZ0 SkBVs2kl1 VBQw9Dyx8w OkVBC2mTH nwiO/RaSQm 79Q11SfoQ LjrZEknDSe SbPTMyNKu TLTVCsO3j+ ieCI8TzE4 VT+7Ij3LFJ EOIhHCuQk YyqFnHMa1T uk4uZrbEa eboxfmVu0T Q5mgdn6nN JzWshGd8Rd k5TBv1bqR YOA4EiXefj dkp5WJnSV PwvNeyrPdk cnComag9Q eKP5DiLOOR CS9dw3+Bj yB3neQH0Ei UkXkqfV+A FEbj6LKEb2 wLt1pQ69W x74ovbrpVk GCD3R3xwY ZWehSC5jNJ jlUgwxe3b sqlE5a/hpZ Kf1eTOYBB 8RfmBbiTw0 qia/7yl6F g6GzZBGzKh AC019z1aA i8sO5sd2fx uH0Zp4ieJ UpbdJ6fpyD vM592IXN6 9IzgdRPDsb HrHEjrJSj D1ObTgTxMh 3sHpLYOY4 Bz6LE9tCvk Ak57XHUj1 ycfd6SomM5 4yClbKoSq gDEIVxd63w /C6m//SLZ kOInAFudL1 VLSgVPMtj xkheDT0Iqm L8iHWa3oA Pudj/13PlI fLXTtrI0U hnIIQbVkCK urY6Ug1J/ BFU/DTgSzV ENQLRmuTq 4hIrA2J2Z4 sQqdxQ3RB 8MxqFVeojJ jfRTuo5NH CXAJjI2Rci 748qrRakg UJTVLcYSpW ZpBTZEGHm 4qlgoXdlVB 3aqmR3bOW Yv8amF80Ta m0jxI+l6N X5vsyMxGGg KpkuEgEiG cmxCUwIagi Gfh4rviye LduNN2NOKZ XwMY5LXnn YGk5kUb8s+ hkWzYK9W8 wqgT2al0LC vj4bhhZhx O5ULKfvmbm IPUnxJtob 5XS7pyfY5v qYawmmoIU yMAxPsF2rT wPBlXbylV KgQJmKEQTc oNZ5VkbTi Hq3vBaWg6R BxwlvuHfj uGC66/npY+ hXll8L8yR kVdCAfcQXr 6+vitqbtU CXC/2pDheR Ic2yqgmLj 2gc/2WFEth UesLCqx3q 6puicJCni4 NxF4SfsAF BAP2xyjSWh 5PlBGZAhL o59D6ti8FT +8Cdc8XGg MPDm7UuyPD SR1yAjDDt HXED3n+vwx Ce4RCTRGQ x2XW9qDMIP PIe8fQ/S2 6+T+Ywgrqo aYVXvKlWI olCsZDSGUT O1Gm8dYy2 4dE5WjGIx6 70ircWVvS cx4V69sS0F 9Qt5fFtKY nmqlGTTwl3 dQoGuIQQ5 NJp6qLDVWM Ze2W3jcsI zp672WA/f4 npZp4KaBq 5wLnB2wINm 9PYBmB0HS PG1z0ynl/z XccBcfHYX QahoBXgw8x 1xg4VZL7l NgGmqnVhcA 58hLEb5Wu qnNcIlSGIE BLrr8wqZd w4Ud7ybdGs sjhE1FLV1 PihdIDPumV psI5mY7TT CWfMmqzv1b 9eHyJEAPV GeCZi3fFue CTfWv73IM /N6MbOPaKm sSSiOcs+Q YieuYYX5Jm PBs+KqUMu pQyqhDMaOO 1CfdWpDhO rVC9vjIGX/ Xxw5/vGjd YZAXl/SOTD vWKgtyp67 NFbz96QeTJ 30ceCvVCF 7SZKecip1N Z5t8tMrVE feTrRliQjW 65iatV0QY H32SHhS6De /AYviy04W wpFAyxHwq6 C9au4Eceq 9XCkg5LMn7 0qPRgR+Qu EApfyLiAiX Y9yImewHU NUYWpoxur0 DpxMZZhue 9dNXlCpTip Zbgu4f9gh n3wtZlMZo5 W+1luLu/4 NM3gIc69/9 QBQkcoJ46 j92O/5OY0Y vvG/Q1d0s 3/dhJkO8Lg 28F1mrkiF d/WTXeHTOy jBlqeCP4A PxqFjchSpt euTqlrMaI 24J2G4quQt KeC3dsp9b 1ttUPr8mWT COWhQuqhj xNpPW1gPH8 Fv1DmANjD HtVlg90OrO Kl9AUespI tDT46LaHZ4 6zLFiKau3 vx2PWwmoup Bm62NNDSz jqKDHzl6gj hgLzazmRX ax05RbYoI3 RYH2o+aEG 8XREMseo5k caYEOMMz+ 67Baq1Kmcp 1nBMIMJ7X AGIQVqaOpg uKEoMLGpo xefYd+EMgj mi8CCBMjx 6frwHu2368 +DowyOMlA BbPgs+YwUY VaEnDh0NQ QZX3MHnfA4 Q6I11okvp tNmH9BUe1T zhudsIZjO FlkEFIv35J BnpNYZhJl 1LnSeNcTMa oJFoinUF8 xnDXenVpyq IeEl5nY7i BYZC9cZSJg HXj31b71X KBXuH/45G4 1uDcemvrM TrkXIfSnMC Y2xP+7Og7 T7jpAArgpq HjAPubnP4 2/dSH04hRd lVzrA2Rwl jF1X9HGUzq eLNtRDeKC EsVymBNhxq BaBqnUSLa G+cfNYa1LV e6yr+qP/6 nEpdFeWY3n sKH4JAHNY wgOTCjMmXI Qd+g5cWDW WQD5GzaCAv QoPnhpBjy XDdggHXBhL Qn79IsEzA lUr+CAZvhv mjkLR8M/Q Fgath2HMzL nbrqYhQ7m 18jOeIP6Hk +PTAT2ldX kAbJ1BwO4d nUL92vQ+I IYymIv7QC/ gMWzwvLFS klKy0XKsFC +nFzK9NQk c00TSiexMK KVKRiBVMp ybULkzGOf2 lVqlwgZPW sj3LeDjX70 2FeXqomd4 HLJ++G+0Aj TEKOZmOAj BFsIQDJMMw Q/D0ANWmV G44G8zCJlD wwmXhaJvk hHYTxgeeHj DijNRdq7V wABXtRAd7S YT7F7Uoz9 Y7vQH8y05C JNqY1OqrT t51hGL1Kmp cquTRGqNA 5LIeYWCXSc RTllVaMqq EonV+84Ikt QnEsyLdUZ WTVqKtGkUj LB+kG51ob V9KLl0W366 c+hWYJg5R S1z3k0sAh5 a5k02gbMC z6KwWppzPR q0J6W96Wr VwtSKRAdKG LpjsjqCOh SJfNtYxNkI 9fEJF4yHu OuUchZsasV F0XHkszu4 tDY32XDBtV VRCTscsr+ LwOnIfSV1d QvNzo2U0r vCt2m+IE8S ZUyDN6jzW oAC+cleABm E+i6+3WI6 9Qr35jEzVr zqLfm8IQE TZCOtTh/EC gHbhJwC4s WqsW1N3pNE 4O2vHjPYK tLJiz9utwF 1DQ6XSZCZ CCozA1pyfL IbLuqrQo1 gPN/tS4EwE 92oPkHV5y V6j7ZqYSCY ToaGG+o+/ o93+azwchp MOIn3ThJ+ tP8/ZfFr+C +DerfA8nC jEoFbbS0hZ unMkKDsq1 ALL5vBoJv2 KvRYLUlup FpZ97xn8Rn nfs606Txf bclXAdTs38 5N6D0idOC zS7yMeFR61 4CqPT02le xNvFph2v2G OLOgxk5KX nXMQVHeNk3 2nMa8OhYc B5W/hhNEKT s2/er5Ucy mJmKEy+Lkv l9+IZwPfX VEUM6Lwvvn hIZKBHaHh gfy/+Hdv05 u/cFnB1Wm eIRaCMST52 FCDX3N1IJ mxL9pa7z6q KKUh8xjg4 i4O/Y9eLQD fX0N+6TWc yjYy6VqoOq FuxEeuCGZ qKVOa0XsnI kTA16PIfu HbS9xYoxw7 pP+StE5/Z Cqr40oAOr4 I4TQO5FGZ C0CX0z5Mkn 0G9lOXWGg QtXsLLTkNQ T9r+GBh8K fMNVvBC5Sc /EeXo4+Y0 SDBcWho+Fd SBqPd43FZ 1+OshtAQxo QEZ7ASnxC /dcI/BH7Oe CPaNQRhlB C9WUcLYqLD E2TaTc8RS 8nZXmSi30I iUWupbk3F J3UdUr6b0s u+FpIfwsb s0QhhUL5In SsohX6wlX ZpDeDwf4bS beTi0NiLN ImSHaG+5Ub qglzKvQ6b v8XXV4t0V6 9MfKgOIPj DPQHHp+EfW /8eRL+vYW D+soknAfiS WlqSwDY2Z gx5fMVnyDD p01mvyVdH 1i/IJX3D1U 3PV7ZsAyQ 2uZug3SBCG u+SjkOKoA NN46s+O9wb 4pxNNybCq UTTjxajSjx w3qgxQnGr Aa6JADW1tG 8Qfmnj2Lq WQznInw/Ui OE6fPRjt/ x3l6ChpkxA VKroCy2sD M+L4wyapfq mO+h9uW2Y 75oy1psYE/ sn7Hdqd44 DKxkdQmx9C HAhlNhw/4 lQU6CFRiph Y1DJfL8Y+ hoBUzS67HO qXDgIfco/ yOuht0mcom 4yKRUMoSV VUNYwTWEFV zDtajzJjo CmLZKhRRHU BFlOBvhmo R7UJB80FHT cs7X4QbRW KqFk/qCUsl QN/U9eMgL c5ap8OIlAT bDhnIIlxD eAiy4zUqi6 ilaC43lzH EoZHCjNahR lfDgdbFxt mrYYKTNYXY t35DJpj1A KhnBMAdrv4 btzdgMxyA UJQSnfUOdh DBS/yiOyR b77ghYOiFs 4QFxFAZQ0 L68hiFKBIE WjJDTeovE WoiJtbfIeH 89Jl6ji/G wC1SV6EOty 8cwfBlR7t uXTW6keIAu 1UkMdZSEw ASmBMtH6t3 kz6hyXfvW nzRFltQ1IF nQJUvxWYk 8dW1Hgz7Ka uvXxU9UIh U/RKALmE8n sPRWw+wXB o8enBVlK69 Jn9JN0Gz5 RApNGe269B qZsagamFu dFXaFi2/hy q2vJDJZWl rCyq/hgdtE H7u6CbZYq RXnxIbzTaU Q0egsJJMY wfVmJ9Wgbc UNtKj2iYZ C8NePHXwjE tZGY0Zw7G DNYiPseLwH pqyH40a1E 2pE33MpcmE 8Potzxw8o 4/vBo+NISy X/2kfugua /nTBfzIvJZ IyvPmnoro h+eJ7CIENL ZAxXLIUFs 2EftaXVcPf FtNMx/JdX 829hl2558E nJz4av9fv t1Waofsbwp pbKTse4+0 RND3RfMuSI l8Xf8QMQ/ C+5pnePoem AhpR9oWxd ws0OGP5bFF I1SMKJU3A jCpfyhSvDW Aq2G13GLb pOXMRI2cU Abx7Bd3DmV qcKa4lsYR jibLWs2dcv Jn1WTwhyR JjQuczuD7t GNIcSa+xG ROzhQYP3pu iqW+AjuRq 40LQRlluLg zKKMMD/R1 ETPoNA1hWY PTXRyYB0K nTs65qDEnP BNG/2t2lJ yToBRsCPuP Je6HIHqDP CQdGOMUbiw OD8VqXXXW BbAvyFC19S YNIxGUnA1 jVFNW5zjtd fLhuuoIB0 XJ2ZdhijvC 9aOQLxZWC 4al8NAQbiT sGAEHEezf ZkgbbtP+ao NgXJm1HKs symsWpAj7S 9wXWzpuHz lJiaMLt75Q JaSE1ahBz g8HUDSv+S/ NA0VAMYml lBoeeHYWoR 2lPJh5buQ yY9cTnBZDT LSk9jurOi oPTtyvdJQB 2oi01ddl6 AqaHz6nAYL LQybHWDQ3 NvPFRfiWoY qnJ488AXh wD/ooKKOGC Kyi9SZ62k HdHFB2RwbL k3CO3fiM8 JjbEHOrbFh gNepCSHE2 jq6mjATk4v HvWGANJM3 SCPdFwIGHf FAbZQiaJc XSXVj9f/Jf LATHYcOhh GJFqpSc2p7 ohzqDtfEw HeMmBHGUIY ijDCcRqJt H+N4DSnbIn M4dUCFXI7 ikrdqG+y/W 08DUr9IXM /WFevCYA+r GPf5ciH23 hGbs5ku9T+ Y7iojPxM7 vrcXe1zt8O iA8gjphRe KUZpuf0ihb q6O8F/2uH i5QcZ6TBtz rz7cdVPJT VD15FuAN+6 Zh/otwx58 t5ug9dmzcV oO0719EaG xqekYMpKg2 NmxKiPnOv RcRFxyjRl4 thC2+x9yU V+fmOBvXcg 5IZBA4U1B Fse1BSE55A EFciTH8dx WRrR9MmSzd vuh/X5kve goOU09M4NP bELZHNYQt 5pf4OyUkWK /lLi7CH6x eS6NzHxvev RfZj1fXV4 qjrYbe5zVN gqWxOgfqk VerM+TV1SG vrpQrRZSU KwUOUByPsF 68OR00apj IiXWhXGmE9 4NGCW4F0o rWH15zFegA JVEjjBehM 1acV+qVCvs hVSV0R2SO W6mRX4SGlL YHngLW+j3 BrVGHtBGui 5XcX7Ha2L Xg4Cb9ESUJ L7HkmALW/ EfYLmbtxGS L/RWrlsL+ 5BYoiV6Osz CwofL2OXA jOhJKTe9Tt F8gBgY9C7 ChOV5fVhJA 0HBw6BmWS S8/rZAsVd/ 1qkbhvPjI hVGXNPVK/r twXcvmW3e akmY/o268m W8OXP7wTp WFL6DGLekT tDbcXXVo7 x6dB6uQ6d9 vuVyf3hWJ FWBNuZL/qL VRRtVOheb 0XfRbY/ku+ tRGO/ohGq 4BxJUdB9q4 JRV3FoDqS WocAxtFkVZ B7qA2Eqlw qUpSL2hxQ0 yiluViIc5 Ry3Ix/lChX KoTxb+GYO J6uVGRL1Ki 17gGrudi/ qg9EpQ81Df 1Z3kJZowN 15rCczFrTe P3yJmqh6F /uTQtkA3/5 eWuma1cQo jKWpPbLlat gA2Tt4x8m GSl9QSrKc/ 37pnhVSzF npqHj8gD77 O9F+/uhCv N1HW6m1TKr VQ/gW3mq2 ZG/cep8ncX cSgC37Wl+ vOX0lafo79 7reaqg88L aNITpoheaN KDpoijrBc crCxT0C2fz KFCoilYun 43nyy8oovA F0BOuqKxX YQtSBgjd3/ 0Rl96ZgLx ziIgTN0d/6 6SbVklYM6 B69Sj/BsDp VapUIgmI0 EzrCX3dmIp OqdcqbBPQ iGaeHoHqqI WrfxF5IUD VpaW6OlnwM v0N8TkNEi 3KpUiRiqVC s+8zg5zQK zoeKwTrYUN Xfjs0By7T 3BBfVLlpS2 Zex4JfjBm zhkykFN6F9 h0drUiKyE 8F/OmtkmlZ DgWIcihxs 4tYuuzsEes TCoUrg39a tia4DT26tQ AsVFsEQii DHUTHqg+bV YcxJ19tBT 5aTkv+i18k 17J8Ml/Rx neHbgtLw0B c8VVjQiHS USUpnc8qif ecS8mfG3x bhutLdZU/V HiNFJFnVQ rFaIqqowXq xVKCaeTKu qkWMkrCyfF VmICj8WDN M4ZtZuZt7I 4qHpSrVRI mJwujwU5EA BJhRDVSmG +RLbeni3jQ wREVdRhud HnhYK5VnFM 1GM5jS7i3 CASIZybULk zyqLCgBGw wXrzScVSIe qiwoERWhU BjY6uavOAE UtMwSc17F frGDSydpwJ YU3OQLtKM ykRHnkY3xe s0ZJ6nkPp EEycRlgwQi v+gFKxVI2 8dMmTlPD2Y G15WUeyna Cr5IisjBp0 5W8lwjL6C 20rkj0JkzJ LDjWdF1ZA 8EzC44wMeX 4CA3AI22v GoFgSN1+MO 7+E+SLg2v TRZXk6LDGE fCFYKqIwP bsR3vPNKn5 WHxm1OtBJ PlMfd1Bb7D Fgmgm5N+F ipGWg2Yhxn xcURknZL1 PjrMSTGw4R QJMUKB8Ow fDWy4Oj7n3 UCw0P8xqJ r1FLRPVemX CQF+44Jx/ JmiXsFyvu+ k8pLGMPGw 0PXsmKaVzC vSQfSZ6gQ 20ZJdE54aN lVwn/xaQN SVzcffHBEK J4ee93tiE eUZMKQC3x7 1RUXRZ8LO 8LPPKRrlm+ g2/wSDkvF hWYEqbE4h8 GYIgoZbxY IC4EtvaDhc aLhmCJKK2 UUdPE8FPiW CWMF+PeK2 W4XIuyX0AN imi9ayLyz CvdFp3WdfX FEMbUK2Z6 DyGIoiTsF7 36IuG++Ag kUYYD2+TVh iTcF1+Christa rcCphCpcL2 SlCGIFSSM GCMspKEASO gdvrsXoA4 7ASfKAnzxT eHD36enCU +gznPyj2um kNKo3GAW8 QfX0eBdZ6s zBdvEjScz cKIJC274j6 YeODqVlyt scf8Z1ofiZ ZriGkurRe sznSxG4cBE zIkjURKhv OepgD5Mu49 n6mGClrH4 J1X6tMEnEC 0g2/VSFgv QmvNoyWcFx /NTWNki6O 1z5fVtRVG5 qjQbaa080 TxYs/OsJRq uU3ZfsHxN 9YvAzdezKs bxBkruy0I 9rEzmnABh+ 9b8VSyoEw czbi258nOv 4cz52MtOL 6xNzcTT5gF IHqMeB1BD 4ubLtbeYXJ dF4ggBD20 CDxcCzX8/T Lf4v6MyzZ OW3/ym54bL /sZblP22p qyxUl4xag4 wmRVuiuUo sQkYbwYBSg G91H5k3AU +80bLUkjJC PXJ/XseuD wY0xTeg8IW qhkGyA5qI biy3tY90Ca uBlL+S4Wd rjeFtZ+Neeta xJ9V8u0yy JW1GMpW0mZ YlQ1lUaZJ UANGZr6GZa 1LUq8Kyhk TcHzZpDCSo +0rfuIZqq YXP9saRMLo EbHC0J+rL SbCCasikPA 5GCcdFQFB AySBlkiEok wznIQRjKA nXxWptuIJq 3L1ffICld xvJP0jzbMu 4g10Fg1Rn w5cxJEBQpJ EiECigJIw XAbUTbjxiH GdwkIHyJx p4RmyHvUpb hrBlqyFs2 SoDHokHbQw rIzeGLYTV W9I1IXAZ6n lMxe9gZhW MKJbDPt3os zrUw7Pf4i 97wjKtjAkr qDIWrKAad TzcFTEKYZl WwnURcA/C 7eguK3NdFf MjncgaL2k AsclwbUJYQ 3UqVQeFe0 HXiMpS4kdC oVKXVAiWT EPzv3RiHBY vzelS0ZTR dnY4M0EiLs tyaC9gwvz omeC8fA/CA LBZ9Bst9p L5xWyE6wJM Wu2QPzeh1 DSwEcBWL0z RjEDoC6g7 3B5jTZUK9H zjBNC6t4J 0N4Zhm4koA n1ku3sncs JZdtvFhyOm vwZ0RI0UN KVfcdvFuiD rxjSoIM47 +FBiduq/EZ NfBq0bmAX 4BiFsYSflu SdK94zw5Q zWJVPXz2Zt gpLwXAQEc ZIhjrTQZUL KcrFwDEIQ QRmCCMoQlM WSlotBSnm 1LBcLQQRli JlVFGwmRJ TDKGXWclyM e3W4aNX7r ZUaFHv0MTW 8G+9IGS4m NTzCECYVUZ TY0AsXNtq NNzwJzBQmF YIASuYHzl AyPxRAyfxQ WGwIuiTDD dfEJAGzzIY DFLf0W0cb SJMMpxKCZ5 ZI5KC4Lr+ m33I2AbnU2 CqdWsGwSc JvEXBP+uzB Ib6bmcdmE 6ynFkqnznM RKtEWwgOP LlNiqlpIcQ Pb93TeEET zcDkBH2DIh 4cxOVBuDV xG48McLBd0 Ep63QvRRo q2kIsju1cF S71xU+i3r xUJ4+VbKej E+s8n8vCm 4eInN9jhij ZilnBerFe EJNz7Jvary Lo4YMB3pW KOEt4C5HeL ANPxpH6E4 a+5Q/QaeyH uII72RvgY 8oqSsFwvXp S86GE8Uhv J7EbC/xR0p 78XCSbSEU A+hp/HAtF4 d2X8IWTON Aw06Ds9U/0 rCezG/sPB czPL4Qckzc Wq7ZrvVg0 HouQvEf76y 7cjquPeOI Wh/ZQ3U/so asMePrNwh KnKpvpsE4q JMSX8pQBH YbRMm3aVnc G3G00OWhZ 9GGVpujVrC tz9Lb0CaC xK2i/XB3B0 2ey6HOTx5 qvRi8XKWf3 NOQ9uh3kE 22vMm2WXZO RhfMMhW9d WrCQnXxbqG Fd+INcTyb 7guhnpKwnV Rbkc6EjpK pHJT3UAuW0 8yIS0AnVx myzVKK4/mooney m7cALaf77 HQhf9KXRjc FEUedWy2l tffVASlA6q uwGC6Fip+ vudsiqirqX ZaC9paNYz 5Crngirf37 dC7et8Jzs HrU2a9+PkL eOXXq0Sat mF/jrxZ08X xd2dtx3nN 4+AGelLWi3 6lhPVitZJ gybC/S6OcF 6sRdokVbb VubdSzyC4q bbwumnvER ydCz1PL0t1 a4AuHGZ0i Rzi0urDvSH goYGT9zCO FLWINJtHic GqHwB8wGL mHWAnfRcBx qPMchBRIc U180lrjNb4 aC1vnhiq2 olqZN7Q1T7 UAGr6AMYl pzn0QCDpPy eDc2GBByf miuD+saO4P 6/dPXSCLM ltf9IFhw9E 3w4tDoUFD j4NV6QScDP wi3CCtlZk OFe8596ozE DVKVuW8ZX Y1EOdoR7eS QizHqjR01 jHECrCbLwL Iw7SQ9nkC ByZT+4sCcC E3wpuw/7e eM4hz4yoZ0 Dt/xX1MXC U2C1UmgD0r ER3nIqWJz OT2hmBdX0N yZZKWozzk r2r43GKcp9 np6jxiAgB TnV88bAKdw K7jLaCjOE Qvv9C8lK7o DanLvUjET 8bhXlw/+Mb W7u6Onti9 kC8CC+ezay CfcQ0hyif Kw8MWOp4L6 V+kUprgGj L9ak1OVeLI tSTcaXGMd pyrh998j9f Q4IJjjAfM cOfFMaonE7 cBLqSu9Uu GlHqnDaHUO 0bchKQmhD NmAO1SN5g7 MlGauQbro qxfY7Ehm7t Y0JvNXhft T/iC9XLR9a 9osiMnwPo jzOUDbV9kb 0bnJHNt+R YZKZVdGzTP LFg5ReZj6 dTLhT8FYgY XQrYYlel1 8pa9oXSFp1 nSZ2apBgZ dxa9g0tBso OllatgWA0 tPSBbEFrbF QDJLGJJZo tCc8zomsop 2RwXdPEo9 MINl68E4PN fdhMC6JPK dYgMVYeLRb aYI5ha+Mooney DKCttCuAhE IynFeCr0u 2/Tu6l6Uzi 7g1hxR3Kw 6Bq6gazRCO 4qC1lRPLG GzgZG7vWsK p4FB9PyOy xCyglruIbR DWwu1ry2A JtOPispJWw T8YLm1MGZ YycQEj8anU Mo6lXGnXt KVLAzNGW5y gJtacM+uH OMrtI4oKx1 yFjRZkoH2 3RUA5zr6Kt oc/Ab1DnS 9RqXDeM75S gzvaaFapF Qc+Ye02FuT FSLqCxQLR JBtK7a5zs1 74qefWWpF tfRCUyLUXb ectnQzq4Z uXplrhgk9U r1UtSsMIX 7LpOzK6CWY 3P4KihMkX koGYAhpYSV r9KLWuYt8 kLkr0wRGZy SUPbIJIdn mN7zJXbFHZ sSpsXWgTV R32FHnuBAs pBiPYEUUi xhWkSpRyad CqTQJEOSI EpWLUqoFsc EkgRRKMOF HMoSRMMyEj Y+OlctBvY j6KvHgZySK FGOlBdWYF lNz5f0Xd4b udaOW6ahi 6lGZGoSyBb aFylAR5O7 XXhn8tQ3qq eCZWR9uib U39UGhvUHT f9BwyCOVD YtHgiNJON+ +TQ6Tpgd2 owtLT46vp0 R66LpjaJf jwSuRULKsi 5wLRLSeCr n+epMRE+/A zHpnZsb41 5ArGsHn4uB xjpZqkX/d YJ3OZE485h KTIt+PZ2F R5cN4dZBSP M2utcKjxF iQFM2VnfgX mdYeyzZM7 TAJGSLk+VZ nOr9Nc/iv Zr0i67UXFu +OLdOqX6w MkEFSeX01R eVpX0WhQv 18pKDVD2xX 5U2kpXuaS aEwhyULNvi lC74T5LbX iveytCGve7 bJtuiLNvi 5Kg2rBrKSs uhtY5iQ7W XD13GYqDlW rXccQILX4 KeGBaXiieG 9gI2hAx3B p+6VsJDcx5 rf2WkEOMF YRsJla/lFb scPVyyxSg dbGoSyBYJa 03YekLlXg 0Zq7P7s6hl vobnSFhLw zFfXeSrj4O nWPTCUX3g ZYUqeWUYF/ 3oYVykyjS 3QCr5MTE6S 0UOpiMEr0 Z1VZqJG37e iocqBQqdm 7JClQgHnRs lM6Cbztzh 9JTFqCPmM1 VlpNKeKw8 6d8ZxMa17q yoerRTYWs LUUMWMb+Dg u2g9vAwdg poNrURpqwm yq3p2cugq BLNp5R5MXw 9Nr3AFknR duNfAGvVUk 2I8Ne1ejV qnBhDoFgkb /UosypG/s zVZMBm4sJN pNxWd8nLB ow65DghaAP uA6Pjwcdc YSmfDsJTB6 3UMC+9qpH YG+yukDBJL PJrKVn9oQ aqU+epMRCl 9BLpFKpWa UPtuxkOVYt O1J8Km7JU WAcMKZT1Th Iv+i6p6oF YmBf377f8b bDoRDoUmP WxpOW7tN32 qBvomg7hX aTbaT+FlsI keVRfZp1h TXQYWsa3SZ aEJ4QGnOR OlQcWfB7xl JNWlYChDe nzwXGqCl8v RG44QXYFq Y7pfDOAi4u QZkVVCoFg VQP9XOeyyi kj2tnRLXY KnQ1MRREgR ovieyCoh4 VgM3JG/RpQ HG2WgOWfT cgVIl645i9 mdoouNTrr /ZsGihGAxc CfbkfArOv XzLu32HPE3 16tQBL1BW 1XOimB8vQD N2JeffyLb IW3lUm8LTh SZKvOoHYr FhaFYDDzpw aRdAUpEPJ fSBLCn35e6 mMKwGKUrQ Ml/HbQVoES lqSFXLAb2 pqvT1pG6KR 0qKCz4tBl pGkO6Uta0n mBz9rE35o UKuaJ/ESBX pFLSSRjKn hyd3EpVTtI vL0ZoFc+q rfHEryE/qL zSmmMoS1T SUtllZ4i8K pkUSItoBH kWIa0iIZ8N C6eF2tGca a/SUmiSQLE Y9edWJEwU t8YET7pTQu S4nAncpuA TnRe/CgyLV MqjafPQpE BalCphWETp oKwAEobFd SwpS40orbP xNBsWJRsW JRsWJQyLa5 KoeWhSIJk PBYZFKuWHY jcsrtmbMC nuIE4Fh7iZ 5GCfsIRhM QybT1RRKTU AD57GaXZL I9fQiuXNMJ iWTAUbN0m 5kcLOqQ+m1 QcglV3bEu JJKWFFUkpY u7pjCObw9 JkMmw2Wyv2 Rwq+4rgMX LAZR/JMhvU UVGTe4IcG d0M0mTBv2d g/HYiCNqd GmUB9XIbNb 9YYeeF9md ViMUrpHSgp NEhgWCXlU DcNiID+kii ACKnDwrjQ 3pOlpGIpFH t5zFPNLrH oyAK5jsvQr ouBXJDzp6 T38iuh/59U 0hvtdqsCv GBdBZ3+FwK 3S678ZCXX 3g4SzzzBZy oO0l1GJ1f LbESMq6jHL FddbMsMrJ kji79bNKNM 8AR0ynMd9 p3CDV8PgYb uuGKZyWXr DYH1vHafXK 3pcG8/190 pfdwDKJSVf t/HlVpwVV odjfuN64Dh 7z3RBtjLv FhjJBWpFn3 BYCgKc5Uh o8AkfUKAr2 iiBWtE/ZD 1/0QoHPgnU ilFaKPDJi ERNooUfhJd ZccNoaa+T Ll+tGFPRiI ngNKr3E3h kyiRqEvWop KjM07+aop IEfkXClohn hjJz1M2tO QDuz6fMTk6 idEnwGBxI s98CuTizvJ MB4bn5WvE gn2Hz8JTpE pIMydVkSK 4mgV+RKo8z 4cCjp2doO VKpvFLYU5N qpuOtrReO RKopG9Xnha RIRiiBXZF KSSUhOlglY wymMo03y2 gT6aC4FFGo VohyUJIRB YWR2nUanYU REYZFwnIm rNTlfnCgry EPdKFYjG0 laFzNOFQ0n w6mSkXVdB ki3QFyFQxP lGRHekoJa 1vSUUf2zPH AyrIjPWWF rK7POAQAoi KoJAHtXD4 LebZA2ReNa XZMklGXVH VoDh955dQ7 9FRF795CO krQaWoEfsV R8ovhDk/i JhJ9PEuram O3W3wOFa8 b9h2hI/ArR o6CXDb51H 9rM8JTOA+3 PRsJpc94J j6Vdu6Rfmy ZZFdSLg6t RwQUuuixSV O57RAAaOT dS5JMOQZBa qbAVhMKn+ QUniRQKwZO /hvvbbGfi td6oPIbNkI 8e3vA5Dk1 Lymm6nvFeg +4LcICueK mvQRWllvRr 1/ATi4kHj 72G4q80w6m 4Rk4NXI1W UKRhCRoMiR LjeZkw9WT PHoHTp0tiU KQtFRXRyo dJeGkG/6o7 JQwLHRfHi kfrKxqPuqM ymFQhuSuM AAC5LTHVhk o2h4WQH3m ncSCSJh73I FQRjuWWIa vQXY5qJDlA wGk3uVMVm HQyNhGkG4M Nzv0pKlY7 RAsYkNNw+n QNJwOZTOT DGUFlIRhEd fC68B6Bsa FQEmkLSGlx pMQLAJHGk 6SswdrO89Q KrctC4QdH Zuz2HBJuwr VGxZROill nRGPcmFYDN NaDnF86PV 5yFfmwUG+4 i8ULF9xUU mGswv19zM6 XtFpDMXiu hWEYjGQYol qyrn84VN9 9iE021h2HQ Cgok+FVVA CxSKVcpTSL ZNqEbZ0yk puG4mNBIuC 30kZ4UNsc XXLdrliUG8 RC16ufohf rdmNmQOUQq 4YSLlgJeS Kn8Wq7Gucs MI6hOK08A 2uiUIAQ3Ju zNXrKaD93 gaeZ2ivD9/ khZRGTmBW 9GdKmBUJVx nGYQ3GgzH 8ULwrd0XTF 0PAvh/SYV vzFlhx5f8g wUmbVhtOn ebJQquI8+d aRXwyngg2 sNDUHrSK/j ebjHi3GoO JWZSCNgF2i G5TPHaufO hQNmQP3eRV eDwNpFWvh oMGjZmClxV fHxjFQO8L emWT32i+Jg CS5SCnFV9 As6QEPACRN CBebPsW8K hqWGfCPZgq rIqbRqFmT nv63dKkq3S R4jjgV7GX Z6zUMRLFCe Oo6IVz/7j Vs5N2F4HHd MyRwqhIuC RQrQGX+n9O 0DAlDBPd3 LDMTpdPEXZ jYUnKtY2C LrT4J/WzcM Yhtkh29HC lVCxV1Tng/ vx1RD2FXI tXGovFM+LN NxGO2HfwY wQKIVPGYla k9sWfqfQT 0tS5EVVJ3J kmUm4FGtV nScAvI5dXg e7liOAmVi qciueKnFI4 FaluHzHdp HAqFrTqYUk YWVfW62bM U0UWnNHqI+ 9LocQH6nW vHoMETbqci hqmG2x7VC din72nH9ug HLU9O52Km RhflMlzvYa Kug2Qi4Vu zNxxxQqnou 9UJqKP1Kj b9wji8EiPF zAqEtJaV4 VRkfDsCev+ 9sKouClBb 0xj/yDVs5B CQs/CCiiF TdE/TtgUCW Bczx1rHi4 RZQGUwqZIW FNdMkgYkk BXeGcKKo7u bNvYVKHwK Wpbdg0wMlL IGFIKHYVP kZAMUHrun4 X3WknJAHs zjUKoSEip6 OUOQmkD36 BRnAfHux77 eubXQJJAa RySjY7U/Kr PzGv1Yrn9 0b2AMUGXey jYzoQiCXc aHaOdRkfhV IZjKBK3TF e0tOIQsbFj kZEaGWgk6 bHxVWAV8Mc J8TlVbLAT zUzEOwWOki qTnEnLQXI iS6s4ruCdZ kpNSHImLR yLZLRjkbR4 LBKqnuyAU jpJf57iONc ej8DVJjty xKlwZwvind CkRyIFUiS MNpuV0bPnv 1LxVIotPQ 5p/WooHocU uMGBvf7rZ JpYtfI5ZUF gJaUzrJIw V7I0JFrZ7F oN6K4cQSV JlYXlTwqXI mGjUyxsDT bcXmIjmuJV pZD1srMXu eP5iPCaWkO HIZbxFs59 uO2wRfv3V0 JEC8gBH7P Rzo1FcnFwr M+saAgVUe pLQVBKQ5hs W0JsJ4EUc FmpP25XiWY KhZ2q8DhJ IX6VLyz7yx 6PIulD5xH pTXFIGkLFQ Yfyf5zoLE NpPXgsrUca 40KmGHjuv lkY6rJ4MWW CeRUqRcLU ukrF3doXnB LPbdep5TC Zh+xwKQYOu dhjg8ztyK zLSNhyZekJ +7tDXSfW1 GLSmgKRFDp Fwka/VqBT 9Eu/Nlrpak BvXI8dcEa Zdr2d5LFit fBTqaFIQo qt6APqJfR6 kVVaSRr4K UskGXUmHDX amp3Pktrb M3biXhwzQR cqBpKLSUO noP5f0CYR8 y0Za9VMtt hZqahQKmJO QaFUxIyDI fmJDcnFpEu aBZPy2UIN BGgcJ2kJDS US3ycbCJU Pi7fmvWpS0 HpNKmnzOK WpSGZQ9ICk AD8On4N0a cUojIprosa oFKYVhOS0 ls5WasY9gf twxTrFXin WSVthDZNhO fcQ7jPVBJ uMNs/yevqm FIVkSFFI2 ipbmDRsiut 6CZviuppg U/GqmkK8PO ldP552aLD Pz37A52hQb yy6PWIJEW aPdQu13GTD ogbrwy1tw QIlPZuGTDG QBMWGFIek kCkiskEhU0 Ywrg6QFhL HIQVSGJJhL Qlp8Y+GTB HNano+bcpx tLv4oi0Hz 4QE6aYIuRa xPr2+5npx QAK4LXhtcq 41YwSZol+ gf1LdF5NxG oZ8nIMtTl oZM4bB61Ci 34vLdMkUP mfIu21fPzA DC6/UdGWl vdPLp+ip54 lghhl10Du u8P00VGwHU xLOWY3oey +yM7S4p+tp cGGhfkOqO Ho7nTETTWA rI36gCjbZ sCO1b/n++x pffcIIRkW sgVMYFRGCp DAFQG65TK AUw18ZL2OS ORpSxcAyE z6rKOjomQY ZB97B34Iu iTm2aZJw+n UvHpIUKNz h+kwLTF0fb F1lIDHNMc IbXgpNAC0j OfyGiDB1j BAqRrMpJsm PO24mtJad GXlyOYSKvl +b2RKmvJS HQaYFraW1o UuRqmpPuN +klnizq1IW MkSKm/arU yMpTPTqVKF Y1HMClffh nqm0UkKWa4 RIsUiGJGJ SSBSpdCQiD 5PKZA+Kuldip GfhpJCkRQS RSolEZNCo htTcLaJi6V 6QCKxdgWJ MiZ5bVRTPB TzZEgiJkN 6t6pOCVaud cInhUSRKv Ooqie/PDUk w6SWBTAdq HIO0OUUUaY t3UCrhshz rkwxTwqJYm Dat3HB3Jl UsNZUmhqqu mSRR3YM6H x4miwiJyE0 pwqLImHrC ZV+zaqHJK2 fr+ohSUAP HMj8gnKHtw LgKX8KJSg qkozJcPB+N LeibJJQeB QJt4/JSPgE Q6lZTCkrV nGvWg2AsW+ NByQFCp3/ ifjseGno6P XqjzUR2BD mMlNVCnvSp VBkpLAnVY 9GQil/ThOz cjn0rplTp 57A1zaesbv 7AfRit1o8 cf/NcmLtnu c31HL7aA9 T+8ELcwzpe l1ppMXf6X qhTgykhTmG tGDGkAwSu jqUwU62obR k2QL1sdPF s428KiVx9F BSdqy6PjU M3F2p9XpeY NprGkShTi RdfZOIW6t6 MKQopbhew 0m/uUOeGEi TWk3yZZ0u REPSRxiOvK yHepID0Cw TwRc7zzCUz dB+ViASIU kqNNSJODp3 JwaWmpCMT LpifPb0ARx Rak4+4Z19 EYddXTw2QP o0YmxbAzA 0YCYkoP04o VGugUphqp qqSiJtCbeS ScOduMjVi gmKRZ5Fljz VN1uJJNM4 JuwjbTvphW r8KimnZQD zwrDRfsKc6 EX26LERfo CT1+IYkoLf jHy4UrbXt dxB0hHTg8O 4HaL9ZUoZ 0Lb2L064LS 1tohcqDUr JF0NL6ZFxN CSgBygHrm i111xzIW8r z1xtSUpVk ue6XKifSz/ tnfAR6LTW 0mFFBJ1NoU FoPoAW3Vz 8GkdHSvJqu MSa9IIVqV ZRMlmFQJGw Vzo+T/IK9 CSvgSefZXY oKhyKcRUo co0vnUbqsC MH/bYffCV 8EX7yvq31i FXhUCTkx9 SJ8PWfwT+l SJhYTNE7x giHIkzDhms 0kke9GBUI 4ygcioSrlf WBCXid4AR qKtBHr8RD7 QxhpFKD18 Vmlp5B1drJ JmKdKxDJC +aFwFStM3v UqVRoeIJF ce+Ex3ubaB M9YnQFO0S F0a+IZVH0y wUWRUKla3 iuWCQEoCks bmi54vRvK LqjSNcCsXm zGRcD6sFi E9ltdki172 VhukSKOyJ nmRRtdqZeZ /1SKSYsba x1F03fqucM Tq29Xi9H7 C6b4hQ/t9c CQFaxP2iU kd2eLhV6od hfK8+rz7n MKzDJwtFBN s5AeO8BVd p0zRIq+lzO XGleT+/yS zIm8K2uOzA Hte7eSEYL fwkVN/VJF8 4KSApUNON BIaQzF5Jl6 XdkejhSFK 8gyYvy8U0t VCRcYU+Bl ir9UbHrwcq xoAJ82XY4 mZAV0GBm9L SOF7XLXrQ b2F0WqNKSY UonfcvnhI 8JpRNLULHt REOBbSTUk pvnzkI1km5 Hpn4Dz/ia g8eVW8Yaqo lBeY82Tf2 8JuGJZgLPk iVC4rSUdi 6BmurulAId VkWngoWu4 goYogqVB1Z ThNxmwYLa 78OpeAiU1H qG0kOq3BP IvvRYj5pqk mqOvqlBG+ N8LiUvkM3W BlPfP+4NB 3VU5IG4uaD CG4CPwqsC rw6RRJy30g Aoel3+E4M e5feP43FPp P8xPFkdm7 gIsRWPVw4R SVHYeYLXs F3pa2pno/a VdH72zeqB yy35N0AwZa mCZncqI3O s2tukP3BFX NXs7W65Ot ALAiv57C/s 4U+MQh0JR 6gW89w5BnI 7FigakinY eJu6uvW4hF eDYodBMXZ 9knpvgC5AS cqwJH80ei xhUKTSPdXb A8W3nPEM5 LGZ7dLj1RA aDoMiVVZN aTxboOb0rK t3NlYCGJY HUzGCdtAeQ L98ZRqBX1 oyJdK19MVL J55zragRR zpDiQHISPe G94k1iRJD CiHYrj4Mh4 SPXhj8zvg P8NCZWEzg2 MsED6KzTd kqX/FIRLUl cUgRQ2a5D RHLHepEKp0 c6ZbDTwhU VjuBbSTUXL hyUj5UnB6 nlwCw2B6vz CRCPVPlLq k9Kb4eOuC8 EtaSsHGPr 1Upkf7TC3K DcaKXlhWS jTXUC9THpP gY0kBuN31 ZD68ulwABj EcrJGlTPV PVJgllJuyV Xh11TSSDj +SFJbVyGRO qn6cURZny 1sfO8uSiTK n9AjcCydR rFJDk0Z4Jd lPOD6uhBU KsN8UDaN1m SSt3IbVPR NjPhEMSzrn xKuCX5fSH euXSSamN6C h9Ug0Tpk9 onGNm9bo1G rp6NS52gW 58E/+jV1DU riHHepaMG mVcEpmoUWZ jt8a1km0O vkzHTQvV4p NcWqNdfFz mr5oGJn1cV qfMNf/xzY g4RtcUuYqy 4/D/8eNw3 Merry/4njcN7 H4f/jx+GM 4wDGcXjxPg 0mbjIa4Yr vFHd3IOK6G eA//CCA+x wAy1NwMUaE 4D/8AIDo/ 5ZjKea521T OzoN23+1F Rn26xP/+ol q4BgpN5jb wkgB8kzyOz HmlHouQ2P 4JiN/ga53p K6lpO11mz vPcgWxcH9G r1SDs8DNi j6CGYq7pds Az4p2d0eN t8ICpZkSEI jhaLwfmSd Elma/Bq8Re8 82i2NGo8J XHZ5QRzccN +gL1TxSH4 G7za+wXH7l bzjt+8+OS P5+2aSH/9w 3lxk62r1a 6nf+ftvEwG Jvp7+mn1+ u2Lf/r67uP 9P7/+76hw PfhS+RQuxe FYXVqZW93 iAq0haVB36 tIV0gv2YK DK//Prb77/ deu7vB/Pb H5c7/muzV8 /0/ourr38 riTmeJVL3a /0hjkbk0w 6zJ0Ri94fg bPyly8/+5 +VRk3kXcJZ evNwnaFfH E5QzbxT96e 62aywQu0T q4zof4tBpv bHK37o4wg /TKUvz+vYv ul1dSTNY5 +Gnb3l7DAy u9/97vbV4 +P72/d3H+9 uf/3b3ZuH jz//y+3h3c f79z++v/9 49/Pp6d9v9 d3Pt2/vb3 ff/3T//sP9 m59vdz/8c P/dx/v0Ofv E64Lu0eO2 b1ivrk5d9u 3tw+39X37 ++Jo5k28uN 88eNj25vT k4dn0mG2o/ 4albD+9+u Hv/4xdjj5s u/nx/+9u7 7++fCt4+vH u+6D0FjHl 47uWHH++/e /ut9cmr64 vdt++uvjwd 5OYb4jEt5 ePt6bB/enh 86vEXn//r 9t1jx9m7p9 fhW089208 j2x/v3j98e Vu62L76Uq OVt5wb6/7x 3cN3d2+ez tY3D39+6vD iV23q0dbv ZTmKybU+Pe scH0e81Xf Xt29/vn129 /7jw+3zu7 c/Pt5uf/rD LT7HZ7/x1 lkwyk8b49+ 9ffX+8aeH 7+/bp5gci7 57pY/8T/f v3/k04xrvw x/+kk6G73 R/fp//6esv q2zEavPO6 1W5ruu9a/2 7FubJs2FZ bfcn+dy2/6 L6oLkg9sK b/qL0kz/W2 2VuejrBv/ yHeFiu4lU7 un2G6+e6J sT47KVpRa9 9+fD4Uw0w v336wH//86 e/+mBvx/z hYE2FQ1Hhp 8fsH7vzfr vj++xzkZcn 98F+S9i45 lXK0++It59 1nS91xnTU v4LYSlPdek f/ko6BLkD ZUUuP/7td8 CMoq18PKG d/+1/01VZd 9Kdu/f0Kr 386oeVagHC f27KciGD7 vr9/GrP+H0 D+ujsKZW5 zz2MjRRPhW oRnCH4auy m9XXWkp7Ly Gkw4T7X2z GUvUGFnZS9 NZWRpYUJv eFswIDAgNz kyIDYxMl0 lYLXoQO45C DUgMCBSL0 NvbnRlbnRz IDQgMCBSL 1Cjs998moT wgcs3Z2Ws uxL8IS4FZm AzIDAgUi9 GMiAyIDAgU q9SOFCyCM AgUj4+L1By b5GVTTTfP j6FYEYbN3K jnGEtK1vp YWdlQiAvSW 9fE9XRYW3 JbWFnZUldP j4+Pgplbm RvYmoKMyAw CY7ecct3I Z8DdFHtT3L ttzUgE3Gu dIvjQV3GjR SnIM2RBOL rTa3piP7TW Fo2SYLhW7 QeOv3tOR4U bmNvZGluZ d1XdK7AejB vCO0ly5Cl bmc+Pgplbm RvYmoKMSA yWC8ahft7I U6BfDYxW8 TqyeEqG2Jm qGylHR6Ua TSfTM2QKZZ eBc0zbO3L VDd8QCRtN8 SeYW6wa5O qvemeN9zgW Q2cbQRpJ3 6puL4fSq2A KC8ii8HsC jIgMCBvYmo KPDwvVHlw MR0Vd612L0 X0ZrI4eNR vVHlwZTEvQ mFzZUZvbn YjG288bnth os8VboQbP KioDt0TsV3 HqfOuAQ3i t8Hrnfq+Pg plbmRvYmo JSESpJZ8rx lo2ZE1BaJ BsT6LyM7Io C6mAOSRpI S1zWrDxX7r pZHNbNiAw TOEdG5FjgG 50IDE+Pgp lbmRvYmoKN nMvTO4gsk i4NF2DQDuk ukP5SDSsG s8XgSGlP5C xbQAcf2j+ PgplbmRvYm oKOCAwIG9 mxba7TW6Lo XRsZShDYX YeaA8kD1Xs dmVyIDEyL ZxtFTUeV9c leXdvcmRz KEVwaXBoYW 55IEVDRyA nVx2DMVBgB RE0nTF7IG 3YbvSjrV7d KEVwaXBoY P39YESqifZ pbyBTZXJ2 YQQeE6Ren2 V3D3UxQUu JEVo6D2yyh qDrVN5mAb YgYnkgMVQz HFVqU9HmI RT1oJ7yUDM 0ZShEOjIw MjAwOTAxMT AxOTEzLTA 0JzAwJykvQ BE0tO2cRP McaBJxAN74 IENhcmRpb gFICTD4YQY pW0D5Rtrx Y7JdQ8HvML lvIFNlcnZ qaqZsGx5SC KGzQZ0Of5 REYXRlKEQ6 BsPgHDX2G LJaZPS3RHF tMDQnMDAn KT4+CmVuZG 4sobd7bfM mCjAgOQowM DAwMDAwMD RoNZI1GCL2 IGYgCjAwM FIhUdo7TeF gMDAwMDAg biAKMDAwMD T2Xtr7KcJ wMDAwMCBuI AowMDAwMD u6KusyGITe GTZhRS8kO jAwMDAwMDA wMTUgMDAw MDAgbiAKMD LaTBH0MWH 0OCAwMDAwM CBuIAowMD NnDEc7HyB5 IDAwMDAwI S4cLqKrERS wNzgxMTEg MDAwMDAgbi AKMDAwMDA 5GNU4DnYxY DAwMCBuIA c4vuEfuUHv Hun1U2Rxh bEhRD1KsfO vIDggMCBS U3gAKGh0TG ChMbK6ZKm wZDJiMDdhY hX2EbQ0NE hmZmJmNzBm NjA+PGQ2M WOcHoG4Cre lOTliMzAz ZWExNjRhZD YmHXK4RyQ 6Yk0yFr5cp TH4WMFrEx 4+EiN5MID8 pXRhZul1T HH7ZtlcSYR PRgo= ID Date Data Source [id number] 11/11/2019 07:41:00 PM EDT [facility] [id number] [facility] Patient: SYD LESTER RA Age: 29 years Sex: Female : 1990 Associated Diagnoses: Bilateral lower extremity e gerardo Author: Angie ALVAREZ, Ivett Pantoja Basic Information Additional information: Disha f Complaint from Nursing Triage Note : Chief Complaint 11/11/2019 14:54 EDT Chief Complaint pt presents [facility], c/o swelling in bilat legs, worse on l side with pain /. pt diagnosed with pneumonia 2 weeks ago. . History of Pr esent Illness 29-year-old female, presents the ED for evaluation of bilateral lower extremity edema x1 day. Patient was seen at [facility] and was admitted for pneumonia fo r 2 weeks. He woke up and had bilateral lower extremity edema and was complainin g of shortness of breath with chest pain. She also is reporting lower abdominal di scomfort. No medications were taken for her symptoms. She denies any fevers, chills , nausea, vomiting or diarrhea. She states that she was tested for COVID which was negative. She was not intubated during her hospital stay. Review of Systems Consti tutional symptoms: No fever, no chills. Skin symptoms: No rash, ENMT symptoms: No sore throat, Respiratory symptoms: Shortness of breath, No cough, Cardiova scular symptoms: Chest pain, palpitations, peripheral edema, No syncope, Gastroint estinal symptoms: Abdominal pain, no nausea, no vomiting, no diarrhea. Genitourinary symptoms: No dysuria, Musculoskeletal symptoms: No back pain, Neurologic sym ptoms: No headache, Hematologic/Lymphatic symptoms: Bleeding tendency negative, Health Status Allergies: Allergic Reactions (Selected)No Known Allergies. Past Medi gregorio/ Family/ Social History Medical history: No active or resolved past medical histo ry items have been selected or recorded.. Surgical history: Gastric bypass ([id number]) on 03/13/2009 at 18 Years.. Family history: No family history items have b een selected or recorded.. Social history: Lives at home . Problem list: No qualif portia data available. Physical Examination Vital Signs Vital Signs 11/11/2019 14:54 EDT Temperature Oral 98.3 DegF Systolic Blood Pressure 121 mmHg Diasto lic Blood Pressure 80 mmHg Heart Rate Monitored 95 bpm 11/11/2019 14:38 EDT Tem perature Oral 98.3 DegF Systolic Blood Pressure 121 mmHg Diastolic Blood Press ure 80 mmHg Mean Arterial Pressure, Cuff 94 mmHg Heart Rate Monitored 121 bpm HI . Measurements 11/11/2019 14:54 EDT Clinical Weight 73.6 kg Body Mass Index Measured 27.7 kg/m2 Body Mass Index Measured 27.7 kg/m2 Height/Length Measured 163 cm . B asic Oxygen Information 11/11/2019 14:54 EDT Oxygen Therapy Room air SpO2 100 % 11/10 14:38 EDT SpO2 96 % 11/11/2019 14:38 EDT Oxygen Therapy Room air . General: No ac [place] distress, no verbal or exertional dyspnea noted, speaking full and complete senten cesNeck: Supple, trachea midline, no tendernessENT: WNL, moist mucous membran esCardiovascular: Regular rate and rhythm, no murmurLungs: no wheezing noted, respirat ions are nonlabored, breath sounds are equalChest: no tenderness, normal chest wall expansionGI: soft, nontender, distended, pain located to the lower suprapubic reg ion. No CVA tenderness.Back: nontenderMusculoskeletal: Bilateral lowe r extremity edema extending up into the thigh, pedis pulses palpable, increased pain to the right leg. Positive calf pain to the right leg.Neurological: no focal def icits, alert and orientedPsyche: appropriate Medical Decision Making Differential Di agnosis: pneumonia, PE/DVT, CHF, low albumin, COVID . Rationale: Presents th e ED for evaluation of bilateral lower extremity and shortness of breath/chest pain and abdominal pain. Upon examination, patient does have bilateral lower extrem ity edema. Vague right upper quadrant pain. Vital signs otherwise stable. Will do l abs, ultrasound lower extremity and CT of the chest and abdomen. Will reassess.. Docu ments reviewed: Emergency department nurses' notes. Orders Launch Order Profile (Elisabet ected) Inpatient OrdersInProcess (In Process)EKG: Ordered (Collected)Culture, Blood: Culture,Blood: Completed.Glomerular Filtration Rate: BNP: CBC w/ Auto Diff: CMP: CTA Chest Abdomen Pelvis: Lactic Acid Level: PT/INR: Test Urine: Tro ponin-I: US Venous Doppler Lower Ext RAMESH: Urinalysis (UA) with Reflex Culture: Uri nalysis Microscopic: Urine Drug Screen: XR Chest (CXR) Portable: . Electrocardiogra m: Time 11/11/2019 15:34:00, Normal sinus rhythm at 95 bpm, no acute ST changes no zita.. Results review: All Results 11/11/2019 15:54 EDT Lactic Acid Lvl 0.8 mmol/L LO W 11/11/2019 15:51 EDT UA Color Yellow UA Appear Cloudy UA pH 6.0 UA Spec Grav 1 .024 UA Glucose Negative UA Ketones Negative UA Urobilinogen 1.0 EU/mL UA Bili Negative UA Blood Negative UA Protein Negative UA Nitrite Negative UA Leuk E st Negative UA WBC None Seen /HPF UA RBC None Seen /HPF UA Bacteria Few /HPF UA Epithelial Moderate /HPF U beta hCG Ql Negative 11/11/2019 15:49 EDT WBC 4.8 x10 (3)/mcL RBC 3.23 x10(6)/mcL LOW Hgb 9.8 gm/dL LOW Hct 29.3 % LOW MCV 91 fL MCH 30.5 pg MCHC 33.5 gm/dL RDW 15.1 % HI Platelet 342 x10(3)/mcL MPV 7.0 fL LOW Neut Auto 43.2 % Lymph Auto 46.2 % HI [place] Auto 7.8 % Eos Auto 2.5 % Baso A uto 0.3 % Neut Absolute 2.1 x10(3)/mcL Lymph Absolute 2.2 x10(3)/mcL [place] Abso lute 0.4 x10(3)/mcL Eos Absolute 0.1 x10(3)/mcL Baso Absolute 0.0 x10(3)/mcL INR 1.2 ratio PT 13.4 second(s) HI Glucose Lvl 94 mg/dL BUN 11.0 mg/dL Cr eatinine 0.63 mg/dL eGFR-AA >90 mL/min/1.73m2 eGFR-LAXMI >90 mL/min/1.73m 2 BUN/Creat Ratio 17.5 ratio Sodium Lvl 134 mmol/L LOW Potassium Lvl 5.0 mmol/L C hloride 97 mmol/L LOW CO2 28 mmol/L AGAP 9 Calcium Lvl 8.5 mg/dL ALT 21 IU/L AST 22 IU/L Alk Phos 71 IU/L Total Protein 7.0 gm/dL Albumin Lvl 3.4 gm/dL LOW Glob 3.6 gm/dL A/G Ratio 0.9 ratio LOW Bili Total 0.3 mg/dL LOW BNP 28 pg/mL Trop onin-I <0.01 ng/mL LOW . Chest X-Ray: * Final Report *Reason For ExamChest PainR eportPROCEDURE: Radiograph Portable Chest 1 ViewCLINICAL HISTORY: Chest PainSCRIPT INFORMATION: CXRCOMPARISON: None.TECHNIQUE:Anteroposterior radiograp hic view of the chest was performed.FINDINGS:The lungs are clear.T here is no evidence for pleural effusion.There is no evidence for pneumo thorax.The heart is unremarkable.The mediastinum and hilar soft tissues are u nremarkable.The bony thorax is unremarkable.IMPRESSION:Normal chest rad iograph.Thank you for allowing [facility] to participate in the evaluation of this patient.Signature Line Final Dictated: Jose Luis Tejeda i, MD 11/11/19 16:22Signed: Jose Luis Chino MD 11/11/19 16:23 Transcribed by: [email or web address] document has an imageResult type: XR Chest PortableResul t date: November 11, 2019 16:17 EDTResult status: Auth (Verified)Result title: XR Chest PortablePerformed by: Jose Luis Chino MD on November 11, 2019 16:22 EDTVer ified by: Jose Luis Chino MD on November 11, 2019 16:23 EDTEncounter info: [id number] , [facility], Emergency Room, 11/11/2019 - . Radiology results: * Final Report *Reas on For ExamSwelling EdemaReportPROCEDURE: Ultrasound Duplex Scan of Lower Extremit y Veins Bilateral CLINICAL HISTORY: Bilateral Leg Pain and Swelling since 2 amSCRIPT INFORMATION: bilateral lower extremity venous doppler COMPARISON: No ne.TECHNIQUE:Ultrasound evaluation two-dimensional imaging with graded comp ression and Doppler analysis and color flow Doppler imaging was performed on the filippo p veins of the bilateral lower extremities to include the common femoral (including sa phenofemoral junction), femoral, popliteal, and calf veins.FINDINGS:Normal color vic w, waveform pattern and compressibility are identified on voss scale and color Doppl er interrogation. There is no evidence for intraluminal thrombus. 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 to participate in the evaluation of this patient.Signature Line Final * Dictated: Jose Luis Chino MD 11/11/19 16:08Signed: Keith Chino MD 11/11/19 16:09Transcribed by: [email or web address] document has an imageResul t type: US Venous Doppler Lower Ext BILResult date: November 11, 2019 16:[address] atus: Auth (Verified)Result title: US Venous Doppler Lower Ext BILPerformed by: Jose Luis Martínez MD on November 11, 2019 16:08 EDTVerified by: Jose Luis Chino MD November 11, 2019 16:09 EDTEncounter info: [id number], [facility], Emergency Room, 11/11/2019 - * Final Report *Reason For ExamOther (Add Reason to Special Instructions)ReportPRO CEDURE: Computed Tomographic Angiography Chest With Contrast PROCE DURE: Computed Tomographic Angiography Abdomen and Pelvis With ContrastCLINICAL HISTORY: Chest Pain, Shortness of Breath, Lower Abdominal PainSCRIPT INFORMATION: CP, SOB, lower abdominal painCOMPARISON: None.TECHNIQUE:Computed Tomographic Adelaida ography of the abdomen, pelvis and chest was performed with intravenous administratio n of contrast timed to maximum opacification of the aorta and its branches. Enteric c ontrast was not administered for this exam. Two dimensional as well as three dimensi onal reconstructions were performed.FINDINGS:CHEST VASCULATURE:The re is adequate enhancement of the pulmonary arterial tree without filling defect to suggest pulmonary embolism.The thoracic aorta is normal in course and caliber without evidence of dissection or aneurysm. ABDOMEN/PELVIS VASCULATUREThe abdominal aorta is normal in caliber. There is no stenosis or significant atherosclerosis. The aortic branch vessels are patent. The common iliac, internal and external nehemiah c arteries are patent bilaterally. CTA CHEST:ROOT OF NECK: No abnormality detec zita. LUNGS/PLEURA:There is a 5 mm pulmonary nodule in the right upper lobe along the superior aspect of the major fissure on image 30. There are groundglass and reti culonodular opacities in the right upper lobe and right lower lobe. There is a 2 mm no dule in the right lower lobe on image 54.There is no pleural effusion or pneum othorax.TRACHEA/BRONCHI:The trachea and central bronchi are patent.LYMPH NODES:T here is no significant axillary, mediastinal or hilar lymphadenopathy.HEART/PERICARDI UM:The heart is normal in size. The pericardium is unremarkable.Coronary art isaac calcification: Absent.ESOPHAGUS:The esophagus is unremarkable.CTA ABDOMEN / PELVIS:LIVER:The liver is normal in size and contour.There is no enhancing mass ident ified and the portal vein is patent.BILIARY SYSTEM:There is no biliary ductal dilata tion. Gallbladder is unremarkable.SPLEEN/PANCREAS: The spleen is grossly unremarkable.The pancreas is grossly unremarkable.ADRENALS/KIDNEYS:Th e adrenals are unremarkable.The kidneys are unremarkable.BOWEL:There is no evidence for small bowel obstruction. There is no evidence for free intraperitoneal air. T here is a large amount retained stool throughout the large bowel. There are mu ltiple bowel anastomoses with evidence of gastric bypass surgery and small bowel a nastomosis in the mid pelvis. LYMPH NODES/FLUID: There is no suspicious lymp hadenopathy in the abdomen or pelvis. There is no significant abdominal ascites.BODY WALL: No body wall mass or hernia is identified. BLADDER/GENITALS: The urinar y bladder is grossly unremarkable.The gynecologic structures are appropriately sized for age.BONES:There are multiple thoracic spine vertebral fusion anomalie s with butterfly vertebra at T6 and [id number]:1. Unremarkable CTA of the thoracic and abdominal aorta.2. Right upper lobe and right lower lobe pulmonary nodu les. Follow-up is advised as per Fleischner Society criteria.Fleischner Society Foll ow-Up Guidelines:Multiple solid pulmonary nodules with the largest nodule measurin g <6 mm:Low-risk patient (minimal or absent smoking history and no other known risk factors):No routine follow up.High-risk patient (history of smoking or other kno wn risk factors):Optional noncontrast chest CT at 12 month.Reference: Guidelines for Management of Incidental Pulmonary Nodules Detected on CT Images: From the Fleischn er Society 2017. Kalin MacMahon et al. Radiology 2017 284:1, 228-243. http://pubs.rsna.org/doi/abs/10.1148/rad iol.73556314625. Multiple groundglass opacities in the right upper lobe and ri ght lower lobe, nonspecific. Infectious etiology not excluded.4. Constipation.5. Postsurgical changes of the bowel.Thank you for allowing [facility] to participate in the evaluation of this patient.Signature Line Final * Dictated: Dimitrios Costa MD11/11/19 17:31Signed: Finesse Costa MD 11/11/19 17:45Transcribed by: JJCLeona document has an imageResul t type: CTA Chest Abdomen PelvisResult date: November 11, 2019 17:23 EDTResult status: Auth (Verified)Result title: CTA Chest Abdomen PelvisPerformed by: Dimitrios Csota MD on November 11, 2019 17:31 EDTVerified by: Dimitrios Costa MD on November 11, 2019 17:45 EDTEncounter info: [id number], [facility], Emergency Room, 11/11/2019 - . Reexamination/ Reevaluation Time: 11/11/2019 18:30:00 . Vital signs Basic O xygen Information 11/11/2019 14:54 EDT Oxygen Therapy Room air SpO2 100 % 11/11/2019 1 4:38 EDT SpO2 96 % 11/11/2019 14:38 EDT Oxygen Therapy Room air Notes: Pts lab was sig nificant for anemia. CT chest shows upper lobe opacities consistent with previous hx of pneumonia two weeks ago. No other acute pathologies. No DVT. Otherwise stable.Of note, patient ordered door-while in the emergency room and left the ER. Nurse h ad to take outpatient IV prior to leaving the ER.She returned back into the emergency room and was very disruptive and aggressive to staff.She was discharged and was pers istently asking for pain medication. Robaxin was sent for her discomfort although she was seeming to have drug-seeking behavior.Strict return precautions were discussed at length. Patient verbalized understanding of instructions given. Rolando alanis was discharged to home.. Impression and Plan Diagnosis Bilateral lower extre mity edema - AKI90-RP R60.0, Discharge Plan Condition: Improved. Disposition: Disch arged: Time 11/11/2019 19:00:00, to home. Patient was given the following educatio nal materials: Leg Swelling in Both Legs. Follow up with: Brett pérez 3 to 5 days. Counseled: Patient.ARMS ACRESBunyea, ChristopherElectronically s igned by Ivett Adams PA-C 11/11/2019 19:41 EDT Name Value Range Interpretation Code Description Data Grace rce(s) Supporting Document(s ) ID Date Data Source [id number] 10/17/2019 08:14:00 PM EDT [facility] Name Value Range Interpretation Code Description Data Grace rce(s) Supporting Document(s ) SARS-CoV-2 [facility] RNA Resp Ql LAXMI+probe This lab was ordered by [facility] a nd reported by [facility]. Procedure Social History Code Duration Value Status Description Data Source(s ) Smoking 11/11/2019 Never smoked completed Never smoked Bk Jovel alth - 02:59:25 PM EDT tobacco tobacco (finding) [facility] (finding) Center Vital Signs ID Date Data Source UNK Name Value Range Interpretation Code Description Data Source(s) Mean blood 82 mm[Hg] 82 mm[Hg] [facility] pressure by - [facility] Oxygen therapy Bk [facility] [Minimum Data - [place] Set] Hospital Center Heart rate 90 bpm 60-100 bpm Normal (applies to 90 bpm [facility] non-numeric results) - [facility] Respiratory rate 14 br/min 14-20 Normal (applies to 14 br/min [facility] br/min non-numeric results) - [facility] Diastolic blood 70 mm[Hg] 60-90 mmHg Normal (applies to 70 mm[Hg] [facility] pressure non-numeric results) - [facility] Systolic blood 106 mm[Hg] 90-130 mmHg Normal (applies to 106 mm[Hg] [facility] pressure non-numeric results) - [facility] Oxygen saturation 100 % 94-100 % Normal (applies to 100 % [facility] in Blood non-numeric results) - [facility] Postductal by [facility] Pulse oximetry [place] Mean blood 81 mm[Hg] 81 mm[Hg] [facility] pressure by - [place] [facility] Oxygen therapy [facility] [Minimum Data - [place] Set] [facility] Center Heart rate 89 bpm 60-100 bpm Normal (applies to 89 bpm [facility] non-numeric results) - [facility] Respiratory rate 14 br/min 14-20 Normal (applies to 14 br/min [facility] br/min non-numeric results) - [facility] Diastolic blood 63 mm[Hg] 60-90 mmHg Normal (applies to 63 mm[Hg] [facility] pressure non-numeric results) - [facility] Systolic blood 116 mm[Hg] 90-130 mmHg Normal (applies to 116 mm[Hg] [facility] pressure non-numeric results) - [facility] Oxygen saturation 99 % 94-100 % Normal (applies to 99 % [facility] in Blood non-numeric results) - [facility] Postductal by [facility] Pulse oximetry Center Heart rate 92 bpm 60-100 bpm Normal (applies to 92 bpm [facility] non-numeric results) - [facility] Mean blood 91 mm[Hg] 91 mm[Hg] [facility] pressure by - [facility] Oxygen therapy [facility] [Minimum Data - [place] Set] Hospital Center Respiratory rate 15 br/min 14-20 Normal (applies to 15 br/min [facility] br/min non-numeric results) - [facility] Diastolic blood 75 mm[Hg] 60-90 mmHg Normal (applies to 75 mm[Hg] [facility] pressure non-numeric results) - [facility] Systolic blood 122 mm[Hg] 90-130 mmHg Normal (applies to 122 mm[Hg] [facility] pressure non-numeric results) - [facility] Oxygen saturation 100 % 94-100 % Normal (applies to 100 % [facility] in Blood non-numeric results) - [facility] Postductal by [facility] Pulse oximetry Center Body mass index 27.7 kg/m2 27.7 kg/m2 [facility] (BMI) [Ratio] - [facility] Body weight 73.6 kg 73.6 kg [facility] Measured - [facility] Body height 163 cm 163 cm [facility] - [facility] Body mass index 27.7 kg/m2 27.7 kg/m2 [facility] vickie (BMI) [Ratio] - [facility] Oral temperature 98.3 [degF] 96.4-99.1 Normal (applies to 98.3 [degF ] [facility] DegF non-numeric results) - [facility] Oral temperature 98.3 [degF] 96.4-99.1 Normal (applies to 98.3 [degF ] [facility] DegF non-numeric results) - [facility] Patient Treatment Plan of Care Planned Activity Planned Date Details Description Data Source (s) Methocarbamol 750 MG Oral 11/11/2019 06:11:00 [facility] - Tablet PM EDT [facility]
--- NOTE | 2019-12-26 14:51 | HP ---
CIWA Score - Admission Criteria [facility] Guidelines: Admission for Medically Managed Detox: Requires at least one of the followin. CIWA greater than 12 2. Seizures within the past 24 hours 3. Delirium tremens within the past 24 hours 4. Hallucinations within the past 24 hours 5. Acute intervention needed for co occurring medical disorder 6. Acute intervention needed for co occurring psychiatric disorder 7. Severe withdrawal that cannot be handled at a lower level of care (continued vomiting, continued diarrhea, abnormal vital signs) requiring intravenous medication and/or fluids 8. Admitting History and Physical - Past Medical History ...LMP: 11/23/19 - Smoking History Smoking history: Never smoked Admission ROS [facility] Chief Complaint: " Patient wants to go rehab." Allergies/Adverse Reactions: Allergies Allergy/AdvReac Type Severity Reaction Status Date / Time almond Allergy Verified 12/23/19 16:16 No Known Drug Allergies Allergy Verified 12/23/19 16:16 peanut Allergy Verified 12/23/19 16:16 shellfish derived Allergy Verified 12/23/19 16:16 History of Present Illness: 29 year old female with history of opioid dependence s/p detox and now wants to continue onto rehab and be maintained on methadone and then long-term residential treatment at [facility]. See prior admission for detox for full medical history. PMH: Chronic back pain, Chronic PVD with poor circulation, History of AKF due to diuretic usage. Psurg: None Psych: Anxiety disorder She will not need repeat blood works but only HCV panel and a urinalysis for OTP which she rapidly transitioned so that we could maintain her on methadone in rehab while waiting for a bed for half-way residential at [facility]. Exam Limitations: No Limitations - Ebola screening Have you traveled outside of the country in the last 21 days: No Have you had contact with anyone from an Ebola affected area: No Have you been sick,other than usual withdrawal symptoms: No Do you have a fever: No - Review of Systems Constitutional: No Symptoms Reported EENT: reports: No Symptoms Reported Respiratory: reports: No Symptoms reported Cardiac: reports: No Symptoms Reported GI: reports: No Symptoms Reported : reports: No Symptoms Reported Musculoskeletal: reports: No Symptoms Reported Integumentary: reports: No Symptoms Reported Neuro: reports: No Symptoms reported Endocrine: reports: No Symptoms Reported Hematology: reports: No Symptoms Reported Psychiatric: reports: Judgement Intact, Mood/Affect Appropiate, Orientated x3, Agitated, Anxious Other Systems: Reviewed and Negative Patient History - Patient Medical History Hx Asthma: No Hx Chronic Obstructive Pulmonary Disease (COPD): No Hx Cardiac Disorders: No Hx Hypertension: No Hx Seizures: No Hx Diabetes: No Hx Gastrointestinal Disorders: No Hx Genitourinary Disorders: Yes (proteinuria) Hx Sexually Transmitted Disorders: No Hx Renal Disease (ESRD): No Hx Depression: No Hx Suicide Attempt: No Hx Schizophrenia: No - Patient Surgical History Past Surgical History: Yes Other Surgical History: Gastric bypass Anesthesia Reaction: No - PPD History Previous Implant?: Yes Documented Results: Negative w/proof Date: 12/25/19 Results: 00 PPD to be Administered?: No - Reproductive History Last Menstrual Period: 11/23/19 - Smoking Cessation Smoking history: Never smoked Have you smoked in the past 12 months: No Hx Chewing Tobacco Use: No Initiated information on smoking cessation: No - Substances abused Oxycontin Other (specify): percocets up to 20 tabs daily Substance route: Oral Frequency: Daily Amount used: 20 tabs Age of first use: 21 Date of last use: 04/19/19 Admission Physical Exam [facility] - Physical General Appearance: Yes: Mild Distress, Tremorous, Irritable, Sweating, Anxious HEENTM: Yes: EOMI, Hearing grossly Normal, Normal ENT Inspection, Normocephalic, Normal Voice, TOM, Pharynx Normal, Tm's normal Respiratory: Yes: Chest Non-Tender, Lungs Clear, Normal Breath Sounds, No Respiratory Distress, No Accessory Muscle Use Neck: Yes: No masses,lesions,Nodules, Supple, Trachea in good position Breast: Yes: Within Normal Limits Cardiology: Yes: Regular Rhythm, Regular Rate, S1, S2 Abdominal: Yes: Normal Bowel Sounds, Non Tender, Flat, Soft Genitourinary: Yes: Within Normal Limits Back: Yes: Normal Inspection Musculoskeletal: Yes: full range of Motion, Gait Steady, Pelvis Stable Extremities: Yes: Normal Capillary Refill, Normal Inspection, Normal Range of Motion, Non-Tender Neurological: Yes: food safety specialist II-XII NML intact, Fully Oriented, Alert, Motor Strength 5/5, Normal Mood/Affect, Normal Response Integumentary: Yes: Normal Color, Dry, Warm Lymphatic: Yes: Within Normal Limits - Diagnostic (1) Substance-induced anxiety disorder Current Visit: Yes Status: Acute (2) Substance-induced sleep disorder Current Visit: Yes Status: Acute (3) Anxiety disorder Current Visit: Yes Status: Chronic (4) Cannabis abuse Current Visit: Yes Status: Chronic (5) Cellulitis of left leg Current Visit: Yes Status: Chronic (6) Uncomplicated opioid dependence Current Visit: Yes Status: Chronic (7) Gastric bypass status for obesity Current Visit: Yes Status: Resolved Cleared for Admission S - Detox or Rehab [facility] Level of Care: Medically Supervised Claeared for Rehab Admission: No Screened but not Admitted - Documentation of Visit Screened but not Admitted: No Breathalyzer - Breathalyzer Breathalyzer: 0 Vital Signs - Vital Signs Vital signs refused: No Temperature: 97.7 F Pulse Rate: 76 Respiratory Rate: 14 Blood Pressure: 134/78 BP Location: Right Arm Blood Pressure position: Sitting - Height Height: 5 ft 4 in - Weight Weight: 164 lb Weight measurement method: Standing scale - BMI Body Mass Index (BMI): 28.1 - Bowel Function Bowel Movement: No Urine Drug Screen - Test Device Lot number: [id number] Expiration date: 06/18/21 - Control Is test valid?: Yes - Results Drug screen NEGATIVE: No Urine drug screen results: THC-Marijuana, OXY-Oxycodone Inpatient Rehab Admission - Rehab Decision to Admit Inpatient rehab admission?: Yes - Initial Determination Are CD services needed?: Yes Free of communicable disease: Yes Not in need of hospitalization: Yes - Rehab Admission Criteria Previous failed treatment: Yes Poor recovery environment: Yes Comorbidities: Yes Lacks judgement: Yes Patient is meeting Inpatient Rehab admission criteria:: Yes
--- OUTSIDE RECORDS SUMMARY | 2019-12-26 14:52 | XMS ---
:1990 Author Organization [facility] Care Team Providers Name Role Phone [...] is protected by Article 27-F of the [facility] Public Health law. If you continue you may haveaccess to information: Regarding HIV / AIDS; Provided by facilities licensed or operated by the [facility] Office of Mental Health; or Provided by the [facility] Office for People With Developmental Disabilities. If such information is present, then the following [facility] mandated warning applies: This information has been [...] law may result in a fine or assisted sentence or both. A general authorization for the release of medical or other information is NOT sufficient authorization for further disclosure. Allergies and Adverse Reactions Type Description Substance Reaction Status Data Source(s ) Drug allergy No Known Allergies No Known Allergies [facility] Encounters Encounter Providers Location Date Indications Data Source(s ) Emergency Attender: 11/11/2019 [facility] th - ERAttender: Ivett 01:54:19 PM EDT [facility] PAAdmitter: - 11/11/2019 Leonardo CALVERT 06:26:00 PM EDT Patient discharged. Emergency Attender: Joe Carlin 11/10/2019 02:05:00 [facility]10[facility]2019 [facility] ERAdmitter: Joe 07:31:00 PM EDT Raegan COOL Patient discharged. Medications Medication Brand Start Product Dose Route Administrative Pharmacy [facility] Indications Reaction Description Data Name Date Form Instructions Instructions Source(s) Methocarbam Robaxi .0 Oral Nuv ance ol 750 MG n-750 2020 mg 750 mg, = 1 tab, Oral, TID, X 5 day(s), # 15 tab, 0 Refill(s), Pharmacy: [facility], 1 tab Oral TID,x5 day(s), 163, 11/11/19 14:54:00 EDT, Height/Length Measured, cm, 73.6, 11/11/19 14:54:00 EDT, Clinical Weight, kg Health - Oral Tablet oral 06:11: [place] Robaxin-750 tablet 00 PM Hospi [facility]h oral tablet EDT Center Insurance Providers Payer name Policy type Policy ID Covered Covered libertarian's Policy P zita / Coverage libertarian ID relationship to [employer] ormation type nova BEACON [id number] SP [id number] METROPLUS BEACON [id number] SP [id number] METROPLUS COMM [id number] Self [id number] COMM [id number] Self [id number] Results ID Date Data Source [id number] 11/30/2019 06:14:00 AM EDT [place] Name Value Range Interpretation Code Description Data Grace rce(s) Supporting Document(s ) SARS-CoV-2 [place] RNA Resp Ql LAXMI+probe This lab was ordered by Fabian and sury rted by [facility]. 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 Unremarkable CTA of the thoracic and abdominal [...] AlMahon et al. Radiology 2017 284:1, 228-243.[email or web address]/doi/[email or web address]. Multiple groundglass opacities in the right upper lobe and ri ght lower lobe, nonspecific. Infectious etiology not excluded.4. Constipation.5. Postsurgical changes of the bowel.Thank you for allowing [facility] to participate in the evaluation of this patient. Final Dictated: Dimitrios Costa MD.11/11/19 17:31Signed: Dimitrios Costa MD 11/11/19 17:4 5Transcribed by: JULIANNA Name Value Range Interpretation Code Description Data Grace rce(s) Supporting Document(s ) ID Date Data Source [id number] 11/11/2019 04:23:00 PM EDT [facility] Patient Name: JAZMIN LESTERN: [id number] General DiagnosticACCESSION EXAM DATE/TIME PROCEDURE ORDERING PROVIDER [id number] 11/11/2019 16:17 EDT XR Chest Portable Ivett [...] unremarkable.IMPRESSION:Normal chest rad iograph.Thank you for allowing [facility] to participate in the evaluation of this patient. Final Dictated: Jose Luis Chino MD. 0 11/11/19 16:22Signed: Jose Luis Chino MD 11/11/19 16:23Transcribed by: LYNN Name Value Range Interpretation Code Description Data Grace rce(s) Supporting Document(s ) ID Date Data Source [id number] 11/17/2019 12:00:00 AM EDT [facility] 1990 [phone] Microbiology - Blood CulturesPROCEDURE: [...] Supporting Document(s ) ID Date Data Source [id number] 11/11/2019 04:17:00 PM EDT [facility] Name Value Range Interpretation Description Data Sup porting Code Source(s) Document(s ) Lactic 0.8 0.9-2.0 LO [place] Acid Lvl mmol/L [facility] ID Date Data Source [id number] 11/11/2019 04:25:00 PM EDT [facility] UA Microscopic added by Discern joshua Dawson to an Abnormal Macroscopic Result. Name Value Range Interpretation Description Data Sup porting Code Source(s) Document(s ) UA WBC None Seen NO [facility] UA RBC None Seen NO [facility] UA Bacteria None Seen AB [facility] UA Epithelial None Seen NO [facility] ID Date Data Source [id number] 11/11/2019 04:11:00 PM EDT [facility] Name Value Range Interpretation Description Data Sup porting Code Source(s) Document(s ) U Amph Not Detected NO [facility] [place] Substance of abuse cutoff levels:Ampheta mine...........................1000 mA/minBarbiturate....................... .....300 mA/minBenzodiazepine.................... .....200 mA/minCannibinoid....................... ......50 mA/minCocaine........................... .....300 mA/minOpiates........................... .....300 mA/minPhencyclidine (PCP).....................25 mA/minMetha done..............................300 mA/minPropoxypene....................... .....300 mA/minPlease note: This is a urine screening test only.Positive results are presumptive and are not confirmed by a secondary method. Unconfirmed screening results are to be used only for medical purposes.Result created by [employer] rule. U Kim Scr Not Detected NO [facility] Result created by [employer] rule. U Benzodia Scr Not Detected NA [facility] Result created by [employer] rule. U Cannab Scr Not Detected NO [facility] Result created by [employer] rule. U Cocaine Scr Not Detected NO [facility] Result created by [employer] rule. U Opiate Scr Not Detected NO [facility] This Opiate assay does NOT detect the se mi-synthetic opioids Oxycontin, Oxycodone, Percodan, or Percocet.Result created by [employer] rule. U Phencyclidine Not Detected NO [facility] Result created by Discern rule. U Propoxyphene Not Detected NA [facility] Result created by Discern rule. U Methadone Not Detected NA [facility] Result created by Discern rule. ID Date Data Source [id number] 11/11/2019 04:05:00 PM EDT [facility] Name Value Range Interpretation Description Data Sup porting Code Source(s) Document(s ) UA Color Yellow NO [facility] UA Appear Clear AB [facility] UA pH 5.0-8.0 NO [facility] UA Spec Grav 1.024 1.005-1.030 NO [facility] UA Glucose Negative NO [facility] UA Ketones Negative NO [facility] UA Urobilinogen 0.2-1.0 NO [facility] UA Bili Negative NO [facility] UA Blood Negative NO [facility] UA Protein Negative NO [facility] UA Nitrite Negative NO [facility] UA Leuk Est Negative NO [facility] ID Date Data Source [id number] 11/11/2019 04:04:00 PM EDT [facility] Name Value Range Interpretation Code Description Data Grace rce(s) Supporting Document(s ) U beta Negative NO [facility] Internal QC is Valid. ID Date Data Source [id number] 11/17/2019 12:00:00 AM EDT [facility] 1990 [phone] Microbiology - Blood CulturesPROCEDURE: [...] Supporting Document(s ) ID Date Data Source [id number] 11/11/2019 04:51:00 PM EDT [facility] Name Value Range Interpretation Code Description Data Grace rce(s) Supporting Document(s ) BNP 28 pg/mL 1-99 NO [facility] ID Date Data Source [id number] 11/11/2019 04:27:00 PM EDT [facility] Name Value Range Interpretation Code Description Data Grace rce(s) Supporting Document(s ) INR 1.2 ratio 0.8-1.2 NO [facility] Please note new reference range effectiv e 2019Indications INRProphylaxis of nieves ous thromo-embolism: Non-hip surgery...............................1. 5 - 2.5 Hip surgery................................. ..2.0 - 3.0Deep Vein Thrombosis or Pulmonary Embolism........2.0 - 3.0Prevention of s ystemic embolism in valvular heart disease, tissue prosthetic heart valvesor acute VT.......................................2.0 - 3.5Prevention of embolism in mechanical heartvalves or recurrent systemic embolism.............3.0 - 4.5 PT 13.4 second(s) 10.2-12.9 [facility] Please note new reference range effectiv e 2019 ID Date Data Source [id number] 11/11/2019 04:23:00 PM EDT [facility] Name Value Range Interpretation Description Data Sup porting Code Source(s) Document(s ) Troponin- <0.01 0.02-0.05 [place] I ng/mL [facility] ID Date Data Source [id number] 11/11/2019 04:17:00 PM EDT [facility] Name Value Range Interpretation Description Data Sup porting Code Source(s) Document(s ) Glucose Lvl 94 mg/dL 65-99 [facility] BUN 11.0 7.0-21.0 NO [place] mg/dL [facility] Creatinine 0.63 0.40-1.0 NO [place] mg/dL 0 [facility] BUN/Creat 17.5 7.0-29.0 NO [place] Ratio ratio [facility] Sodium Lvl 134 136-146 [place] mmol/L [facility] Potassium Lvl 5.0 3.5-5.1 NO [place] mmol/L [facility] Chloride 97 98-109 [place] mmol/L [facility] CO2 28 17-33 [place] mmol/L [facility] AGAP 9 5-15 NO [facility] Calcium Lvl 8.5 8.3-10.2 NO [place] mg/dL [facility] Total Protein 7.0 6.0-8.3 NO [place] gm/dL [facility] Albumin Lvl 3.4 3.7-5.3 [place] gm/dL [facility] Glob 3.6 2.0-4.5 NO [place] g[place]/dL [facility] A/G Ratio 0.9 1.0-2.2 [place] ratio [facility] Bili Total 0.3 0.4-1.1 [place] mg/dL [facility] Alk Phos 71 IU/L 30-125 [facility] AST 22 IU/L 10-35 NO [facility] ALT 21 IU/L 7-35 [facility] ID Date Data Source [id number] 11/11/2019 04:17:00 PM EDT [facility] Added by Discern Rule [id number] Name Value Range Interpretation Code Description Data Grace rce(s) Supporting Document(s ) eGFR-AA >90 >=60 [facility] mL/min/[address] The MDRD 4-Variable IDMS traceable Equat ion for non- individuals is used to calculate the estimated glomerul ar filtration rate (GFR). To estimate the GFR for Americans, multiply the Eyefreight ided GFR result by 1.16. The MDRD [...] 60-89 Mild decrease*G3a 45-59 Mild to moderate xfybekapL2y 30-44 Moderate to severe decreaseG4 15-29 Severe decreaseG5 14 or less Kidney failure eGFR-LAXMI >90 mL/min/1.73m2 >=60 NO [facility] The MDRD 4-Variable IDMS traceable Equat ion [...] 60-89 Mild decrease*G3a 45-59 Mild to moderate ahixyehbL6x 30-44 Moderate to severe decreaseG4 15-29 Severe decreaseG5 14 or less Kidney failure ID Date Data Source [id number] 11/11/2019 04:09:00 PM EDT [facility] Name Value Range Interpretation Description Data Sup porting Code Source(s) Document(s ) Neut Auto 43.2 % 40.0-70.0 [facility] Lymph Auto 46.2 % 22.0-44.0 HI [facility] [place] Auto 7.8 % 4.0-11.0 NO [facility] Eos Auto 2.5 % 0.0-8.0 NO [facility] Baso Auto 0.3 % 0.0-3.0 NO [facility] Neut 2.1 1.8-7.7 NO [place] Absolute x10(3)/[facility] Lymph 2.2 1.0-4.8 NO [place] Absolute x10(3)/[facility] [place] 0.4 0.2-1.2 NO [place] Absolute x10(3)/[facility] Eos Absolute 0.1 0.0-0.9 NO [place] x10(3)/[facility] Baso 0.0 0.0-0.3 NO [place] Absolute x10(3)/[facility] ID Date Data Source [id number] 11/11/2019 04:09:00 PM EDT [facility] Name Value Range Interpretation Description Data Sup porting Code Source(s) Document(s ) WBC 4.8 4.5-11.0 NO [place] x10(3)/[facility] RBC 3.23 4.00-5.20 LO [facility] x10(6)/[facility] Hgb 9.8 gm/dL 12.0-16.0 [facility] Hct 29.3 % 36.0-46.0 [facility] MCV 91 fL 80-100 NO [facility] MCH 30.5 pg 26.0-34.0 [facility] MCHC 33.5 31.0-37.0 NO [facility] gm/dL [facility] RDW 15.1 % 11.5-14.5 [facility] Platelet 342 150-350 NO [facility] x10(3)/[facility] MPV 7.0 fL 7.4-10.4 [facility] ID Date Data Source [id number] 11/11/2019 04:09:00 PM EDT [facility] Patient Name: JAZMIN LESTERN: [id number] UltrasoundACCESSION EX AM DATE/TIME PROCEDURE ORDERING PROVIDER [id number] 11/11/2019 16:07 EDT US Venous Doppler Ivett [...] both lower extremitie s.Thank you for allowing [facility] to participate in the evaluation of this patient. Final Dictated: Matti COOL, Jose Luis Ortega 0 11/11/19 16:08Signed: Jose Luis Chino MD 11/11/19 16:09Transcribed by: DMK Name Value Range Interpretation Code Description Data Grace rce(s) Supporting Document(s ) ID Date Data Source [id number] 11/11/2019 03:34:00 PM EDT [facility] Name Value Range Interpretation Code Description Data Grace rce(s) Supporting Document(s ) [facility] [id number] [facility] wFT1sevf9ZX4PQI Center 6qmUceOay8 MjIvRmlsd FHgP0KaDUC dZSIpt5Jl Zl9vuKRwGW 5ZjGqqwI8 vPU+SnXXfn +RN8MTTvh jtZ3yc5oKS gYyZaWHED zPBBMg02XI NEN+eylgR wBhhEh1c2F f/09XKc0P 27ayKzMiod f63P/wXf/ wY4Q8x3I8/ /k9/+Ms// uG//UP6+V/ +8Bf/ZfpZ n2f8/PFfbo /087z/Sz9 xhZ5811e9+ ePf/+E//q f//N/9/PU/ +oepBb1c1 f6TP/4v17M 8n3Rdn/kX Ot8AzzTdo/ 49qt99snj k7tB4khL+Z //gb//qr/ /ALPHONSE/7jf/MEDICAL BILLING SERVICE /tOff/jXf /k3/4B9e2q flI/vX/13 f/UPf/6zn3 /6V//wz4U i7eOdhTZ5t 9y0DTpj+S nPz//1v//b Pxf/uv+Xf /f3//xPf8c +taxPy+zz 587qWv/R3/ 2v/0485vM pckrvOf+Pf /x1ntq8hm 11qebyN//9 z587z+vwD /7Fv/g3/8e //nc//9HP SFF97r3iEb Hx/s2/+fs /d1LX4y//0 AIRVEYOR OPERATOR/zCm1Zq Nhf6///ucf /qu/+7f/7 uef/hatchery manager/+V/ /oHcM0A8/ 9y/+1Z+Ldj 3+6m//+A/ +yV//7f/wl //sb/+rv9 3s2nf1oKna /nIqgb4KN 64//+cf/CT q+vT88/d/ WV735ue+0x /+fjs4zMQ X3f/NrwGff /Is7Xy+pv V5x/n+fN2/ qrO50d89F gG1VQpM1/9 m4NIEXspJ JYQxOTzzUz F0tRhatRt YHTHQbo2kP unyq9GJN5 EIZ3Z4/zPZ hAon0zy9j jBmh/SpiR2 MyWHOT+MQ HAVwq9CLnL rl3juiROO 7PHsUkYMxO YzxyRwCzA 5VvwWYHdKn cQgwOfSp3 rQPHu0m7T7 RzUW/A5gd mm1e9OVLSc +twCdgyOb 9zE6tchmUC oMDgMmhzs /krwBmh/55 OASYHcon8 0nTo2W3TKE VvoDTys0M QZdY95HvZ8 G9VMzeoVS H23TULq3JO l2/BZgdyq fwkAezw/tA zvGW4WE+Z /B4BLND/Uw OAWaHvJ/j 5GBMDs/6ZA 4BZof+KTw osceQUb1Hx NnhfQSzfe M15/dhM8nu yF2FuiFoO +RPZvtGMs8 z96QHJcew FXYwZofykQ MU/Qbvg2Z 7uxxEf0q5W 88BBNf6xI MydkZ20P/h YOPw6WJJc I7oupalguV A7FA+s7GD MTuk/f+Tgz I0lNevAec I4QF9CXeol y4LUXdfWJ 3V1wsgka7L MDvU/R9yM YkL3VtSrkm loznDTg6p dngzNIcAs0 P+dL5MXXE 7HxzQQ1GAp T+c4hY2w3 DomB6oU6y9 gskhvbmZ7 UYxjvs2PFp Pp7jIlWxe mLOa1nN+iQ m3cD6ars6 HBg3pP39O8 NWIr076rW Bmh/aZmR2M 2xXdpnn4V YzMs6TC3JL LUJk2DI9Y Xct70eQWaY nw0diuBDM 5vA8Z+RZgd ko96apYjq oP8DgL2oZl 7+UhMS866 PhSh0N81Fr Mqpnb6cKQ CFwL2eCxwZ Q6s0P/JA4 DVsc8J2L2A 5ohI1PWdn JQh5ndIiUp 5HFzyf3vn /ilXp8bkyb XmokDgNmh slljVFL9UY 4AZodHvwG XMQU27nKTN 8pUtu2IzA 55rwXJwZgc 3xGP8uWqj uifyqMRzA4 rMpQsIU4s 0C1taWi/EG HyeU29j0M W3uTtDcV7S LPDO/fgEO Dr8C69+Shazia yfwmZTo+k MxFvgCQzM9 e9MeFEaH1 1PNYH5L9oU acLWxbQ3W RTiqa1Dqax zUiY/8MOj XFfDOP3IQf vwmYrJuu8 J2y7rmoOYb 2qXRoIJmz nG1C79c1Zf C+ygNNqwP tqziw/186O LQBKggu27 XCr9tMt1fd wqokIHF5p eg6gzDFw3t IR5TnyD0a iQlu8E6B52 k9Qxiav6n +7/g3ywoIW DLbNOmaDc w327Tnmx1f yol86BlZV LV9MZvnR9X smnjNhmRe l5T3hTqFWK 2aesxAMjc 0slKIqGy2t EvJ1DQfCQ INES87zpzM eO1EKApld By379z6cb7 WGccMJPP7 jCDrJjLaIu Jolene/5nSu 0n1sgzdIw9 15jXesmMv t6zZcJWmCl Au+aDa95Z z4tDfQj6kQ tHcs92BvV 1/w+cgcNYS SXc2e7bXu 3Raew0BTLv jS/ZkO6+d 5w12Jwk0NG yp8VdoC3o N3qVMndmgv WobgOYHYo v7XERhwrKE NOiwZem6N fGvShYI0OI jXXAcwOVb 8AeF0tNwXK xuKISk9GC HYou+pGDsb j4UTlqWsu naayfSOZq1 Hxqu3FYlA YMgeYxB489 Y/dK9v5je Gd33BfPWSL ntTmn4auj +RgzA5W+yQ BA1YmGy5M mB2s/koOxu tj2IuPEB8 9+5+UsIzZI bc2CYOD81 mTHIzZwSrZ 5GBMDu/Kr CX4ZNYTJeU IgWmdjn71 fBAbR2cIYy zrFqt0Mhp tL8TBOAUCs Fhd8k86pO MxpefHJjA3 P8ADtvo8c LLSe4KQzzI 7LPkWzuSQ 4rpR0O0P8N B2XMCF9FU ecjDmGcyef dIMZiOby5 9sb52WLFfr Pa1T2GR3g E5kyFds6VC 5LvNVyb0s FrlEg8EK/M mKtKegj55 HgA000TWKE 3bo+i3A7G XIM5Gp3ztj 2r2VXjzaZ WFJW2mlwKt 5GJNDf/Spanish 5cwY2tKPyM UwmE96I5X JwZgdbBFLD xez3E9kDp 9IMDvYQpoc jNnhnYKwf OSIee0bG1A mY3Yo+h3A 7LCrCWTfyO jc1tDLIok sbgo0IUWJj L1nrBobX8 JkN6a5+WMF iUr9N4YI8 WUpcjBmBys QyJIlD3dv VeJPH418BJ mKVh/G7FB 9aJ5njUiUQ mPkYEwO+d FvAWYHK8+R bbQ4FN2CP PptWcT7XAH DSfotwOxQ u6ZUAKxWrR ff8UZX73T aF2vstYcXP lZsJQdjdm e99RrHlifg QT1wRMqZb 79P62ELvKW gOjorQ9hb wkiYE62nMt sYxIAE7ns Y8ICttyZtX jqoZ09Z9y Q9bmR0a2ko 3jrS2RKRB qCFPaPK1Ne OUysBzuyg tQBndtBqgD Ov2L/qAeu 7ILC+KgLru nIkljeD95 4gHsbAWt3U Sw6DPhK3B gc2L0YY41b 37XfEPz0j 4sDuJ+Fv4c hZGc3vRoj vQLtuv3WTe Fleq2QMwB 2nNcJfc3UP hKeqsD9Qw C4lVyOed9Q LnNlBKwbO 2CDuJwHzj2 TJaVnW1rn F9CC8vxXPY yn3mWLVlV 87z6FCB6lC oWsBwZkdt ZPtgH2mQBK gz3CZDNx4 0AKCMztoAc MXKhAQ4Qp OUwsIzuygB QRndtACgj E5RM8zVXKY RuOq9IKUG X0oMLMX7FR 3RwsIzuyg BQRndpACAp DMSQsIzuy gBQRndtACg jE0tUSXyZ cpNpVg4OKQ BP3ucSWBJ 3IoWkBwZgc tIDizgxYQ cTmILgdL2J M7bUAFEml AcGaHIUtvZ 3bQAoIzOT QtIDizgxYQ nNlBCwjO5 ES2xODWThf AcGYHLSA4 j1NSzbJrwa EFBCCbtYD tsI3mKJLfv ykFBCCbtY MjpD1rAIJd Nd1rFHYZ4 gKCMztoAcG LWrHD2Joz +dHFLRx28F KCMztoAcG LHkZN0HiRW QsIzuygBQ RndtACgjM5 OJ0cMOWLY iKz8CYPMB8 utQNUF7Jn WkBwZgctID izgxQQgGS uWkBwZgctI DizgxQQgG zWAoIzOTQt IDizgxQQg GzWAoIzOXQ tIDizgxYQ tViIHojY5Q AFBGdyGFp SgIQGGQU3r 4MWEJzJYW oBwZkdtIDg tA9nZOJgU g1uPHQI2nD CMztoAcGZ AoRL4Fqymy RXFYm88PF CMztoAcGZH dLH4ZyTAT oIQDZrAcGZ QaKK0YpSc IqPE0fcLFM ndtACgjM7 SAEBSOaiBQ RndtACgjM 7DCkgOLODF hCcyaFqAc JMSzOO5RcT WkBwJoemB QRndtACwr/ XLPEmvfm8 0/40ozG7e4 50QcKr7F1 HmyjvmHmHz P/7N1F+ew lr0flyoi24 5ru2O40c/ P+16/7Xjvf fus1/6/X+ wtW63h6wGm uMf+3u/bW /9rce19/7S 3/t7fy1r/ LXrsZfegp/ 4yy6oTkkc 162/2A/2S9 pWv82UvEC /f/d4fCZj4 EvXT6/dNr 8B/tdfuk6+ p1l26vfg3 02Xv8vG/h1 t//Xnfbfd rl/32H+dX/ 2291EC0j3 f91V/HVH7z +8n/b7bta vO0m/7uL8u oPy6/7Fr3 dXf4szx67l /1q3/rVq/ VhT2fc07v+ 1yl/rhL/U 8V2lrV7ruk k2WnSfGaw XisivFYlfq wG/rsR/XQ X/pnm3HYT6 6+mc71CAd 3vLY0a9y36 5f53x/v+Y bdqg+Pemmt /k4fwt18q D/teH6++Pt t8eK7/c0r /hHG9U8h8B 0q8/I72qn vO7An+v+n/ xRxNPSPZV /rqwe3lq5s 94Xy9Nhzd eb7vHz/Jgh kbCsb2zXy ut/vNgUrqb EYopHn5a/ E7YRjKC9Rc IgrPQ3A3X gntYtB35wd 6Hh378JLt UDRX5070YF SWG6nGoCR zu3btro/bm puf3hSyBi KhXS9ld26P Zs7Ggrdgd 3lUhHEKzCq 966K0WjAh 7AfHFjM/aK 6qz4uBJ6f L8C5AniX75 om46AtBTp axZxzQ7IoY 7lFabBty1 kpp3Vhb95k MEepzAXeT qA/O7Rn4H5 uPZQuBFK/ QUvL48hniy AI6sma41U 59D2rfLhVh i2BcwCOj/ b29/vLjLgb sIvKnscvT opWWabE2i5 bShI24Jli y2nIaBTrXr pVv/6L41n fK8gGieNi0 p0+Pv7GdU 3pgP6LSeKK +b/sWdieM PvcwcXag9z eKLVmzBmM 58m94VwZ2G 6e3e6Mrl1 tvzWTQqmm2 cuQ1coc9p +dA2iuHd3l r9LksxuD3 yEpNa9WOyQ 189UzDjvi hg5fszdEJU ZM86gdLt0 SwZuxfHOux aVukVIT1r pnQ1muYrKl HhybgyOU/ psFOZ2JtmU ICx3awR9Z Oa8iCFDLdT ogLRh46s7 ZP/eS1iySn KkrRDx88v arP2u88ccU bOBFMv2EQ yQDwJOu5c2 Djg92V66m JKtud/fLE8 QXyJdAp7w K7emIc8EoQ ej9CFaz+l wAQASgM2L5 Tf53+xvSw yjvb0nGNDp gpQfLREmL X8pIOSQeoG 6Wz34btaW sIagQJTvxn cpILRw1Zp nh7bRygpwf TM7jpUrxI nVbv3S+Osu dz4gAqMB0 Tj26W3FmmX TPOgyL+xB 0DILs8SRHe u3b6KwuDm oAr5ORV8Tp IzfU2zgt6 X/I3fd/phK 8yEdzJftE WHA9UP9GN5 3b9MLVzpL r3xs2UxnID YFxhZk9Mn KfEqaNDE3l hkZ51uSoP kuPewkaDs3 fMXbXXn+e rFWcTZAoXz wkZcQfHwR ApvM3fCPPc MICHAELA/Fi1kWL U/LD740BjD ysDxYq/m9 CqQ8ch1vCt UJUvIBXH1 JbAOoAD3qz s0q3Sd4Y9 r2UK/mmiBP Ypsl3Zwby D/J/W80hTB l1Ev/Se1J cwzNjTXtND VfWEvoumu TF1chlZ208 o+yiAMaCp iskUPWB11E 9w5qWxImE uGPuxZbuAH 2xY/gmEO6 Q0B6r5w3JW 36T1vBnoX Qhwxh7revd rQoi5cBo6 djBaQGtZ3z W9g74u9Fr PZTTTcpeuC Cz53P6Cev H/ItjinVlw q7SKu81x5 E9qhF9Qd9j vMywo1azi AsNhik9hsN v2ri0c1Bw mXS/q67Og3 JyHREHOCO AuagVNw0jA 9DT92RDMy 2vQwjr0BAY 42S6UbLBn fjDmsSvW29 aZyGVXudJ gdqDZOrOL6 DtDRwa1Mz 7H4lKlJCSV lj+zuYJmy JOYEniXJtg czhT4QgP1 yDMESgwdcE oBVdtz7tY Hul9bcjGYe a05NdVqjZ qgpkmRi/We +/ezgRE5Q VoSzN3Yb/W 35uuBB3JJ /tFhEAOUbF QAWSa78as q/0KSbnPjN YiSGDNgq0 F8wNodVyCQ g3KnmZMMn p7YNds4xCj xdbOIzDe3 o97l47a1St QJ+FAHr2Y l1Y0RdxVcb 3R7B5LEEV 67kDMwY1Ew /f5A/3F3A TLus/3Fy2Q x4Qq6RCQn JpXqq/Vkml M02vUhp8m rYJlCTbMiW xv7sU+BGe 29xjWd8b+0 elPpLrAXA UAMONC2sYv Pu3l3uWny Ub0rGI07SU WfTRFSsWB W4HkdNRfUc 3nR2Bk2w/ l8uXH3tYyo n/6G7LRZM 3s7l0TDXHH +6VBv+WLq 1nG5j1RhdO 6Fz72xKtK lWzHykBr59 VVwTHvDfD gehFEvD0v7 3yK2o2u1Q pFEwU1JR7d U3NpkeN35 4uZYjaUJSN tG4SRiM8h cujROp151W sFg6q6FMr xwiCyHIy5R 3jF8aXRR5 Cjbt+gMbc7 H1+aUPTZR aVdECp+hsM D6dtLP0wJ rqlI2FdK6H kVoQaBxl2 SncmbMAD1e QuFHJPweH C2JzsYa1/5 tlcwJ9fAl qmOMkwhW2u k1uXOu+z/ BDim4euonV c0Hxsy97K yLMu53V+Lopes PxukAfbV2 jcNc6+1onG qbcGxthb2 DT7EQvC0Ge G7g6u1jnN x3OuF2D04S 7ulHj/LjR j3wgvhmTAi 4exAyXUfM KMVQL6zOrp XL//rUWw0 RJu/99ZcHZ ypht/b0xW XsDr0s1vYs 1b8Figi4/ js74+DVyLz qHE+hSfLR qgLA5mB4zZ +mOEGi5T4 o/IvY6hR/E GocEA1C3A OMTkxR4tS8 Cchlq5Fgk krG7TMsOgv +XraLFADc t3zM15nPRo hbWHaBVjn 5YH4pyiRw0 syKwXvehr d+AJSCc6Rh 0dODCbyT7 drOOThDKOZ FiBCk3MVH vREywzI7x8 +rqpR9zse du/N3OuP9l 3WzRWwqaO 4QOHqs7tIs keEC6OmBD urJTbVj88Q CW0tsWYsc y29fh+ac3I LUJvQiS9n /9ueEblp1q bMBY0Qye0 WHFcEybbb+ U3v4FEZM2 60/JNTwz6X aletKzaIL /7YmmCfOCE NtdrtKzaI Hb69pzJNlq XO5qmyuMP zRsWa5UoDn xcf0IJ8rx NW6mxz2PLN 2PH65t91e V0yD6+mIUs m60hv1gUs jqyrgTzf78 PhzimWzZr mMNg9XIrxh ZtedHSasf TkSq4BNcse F4Ux1/zup gm+TbsEV+s XVDi+FshF owtnardf9D 0BAsfqmug /qSj7rGbH1 kv6o8uin8 w2RCYs1J0L mX8XDhJQ7 xpy2M9T6is QIKS0vmjP Z8o1ZbvfAy dYyt2V0RA o/4o503Eha IeDSO66Uv DKdN896gxu DJXZFZLRf olmXc7R1lV g8MhQprlm rJkj1xGR5n 2DPTEarhV 5COxbrFHJF anTPWuFys hjCG0mjASh 3EoPV8nkG cBY5e82Vlq iyAXmFeKQ OIgOw4nVLO XHylHHJsL 75bLIejLVf w85HtVlUN SJVe9Uyw2s jGT1iP1b/ leqgy+WsVR Y0DgMrLl0 rP5P67haeq 1OebGxrKY WmXqtLTeGg WZjYtOtX1 op3a/PFMFC 1+UxeV3jW +7AD5V4RMm oU0zWx8be VIvlinOLQv 1Nm0TrKYv Ku3JQ3k7+o 1YFU5pRTm WRu2xeIN8V Y60+IxnlH 6QR352Gvi8 R6GQtm6Fl hpnRpzARaN p1IP3FCML ooV9yB01T/ TKNPgWWbF GHHgUB9nMv Z0zFhnOg9 o7ras3+0r1 nD7PdLNjP vGW4WiE+8D ZWKqafbl6 uH/5DyoIbF 9W2SnRixL SLniMWtVmc x1q71/HG1 79N9USufXE 1b70G4nbP Pt9GG/2cId HU/+52F6R ak+8GmvLYy /wVm4QXHt JNm39FEbwN 01N0ydtXC wCSvolM5OR pziXpPZKt vv0kBWp7Em Kng/99Dri ndPviHcuB9 bIf6pbuJ0 wpCYq9uY6r uyG+tjtCH t2qNKPGalZ N+elXItyo wdiCNKdDqf u4QKemvtl BJMrIDaW43 qOf4viNwC dsVf1tfyEH 6zxxKNVa6 imelaUdItj llNZEepw6 +I+hGYVXFT n3vo9phwC LrxwhnpJ8A 6x9Eb3NIl 339yD9yclf W10dBElur LPp8jL+preparation operator sv5LfUkZY Bcun7NsK9/ fPtO6QuDK yDbvcFuEvz qvGL8kutN eyJW0zZjD7 vcd4pOYlu Nlh5HMBfwA fXfxtSq2o Pyd1E9ym+6 1cPo0WIv6 JnlHKKgF04 Qq0GoN/cJ 7vDHIWGaN5 A4ZFs7enl Lry4puV4y7 nujHqdGRh Wb8FEJ43Q8 uWp/OAE9V 0kShS2zTCF duXDdJpdQ idbfgzLdXO q7OrcWgkh yFy5aubAH6 71MaH06Fc 1pMgaTuze8 AqFd9BRYz sPeIPdzDme 3MQIVCW1X VTt3BqmOmD OQlS6vrlf YpJk4DM3+N 4A0M03KlY 3XNYwiuxKE QBhXuva1I AhkL4wdJ5f e5ZZaMy+f zizA/Ec3mW FbZAuUK7A W7yXhXZeBA 23vP7FB5v ws6X5mGR2n /3vI7Ov8B 20lLJf0Ohn Fe4lcBamT JcedmdEsxd 1PwMY31D0 vRMHU/XZBW yJPnhGv34 ciF09IcFXi WfmQ8zKrY NMESuKid3n NFsfIUKqN k7fucLqRO9 VA8y1nwaw p39BwrFD+f 2cL44dmP2 p8gDYVjvVV kKVTuNIHJ 1sEKG4PpqS WiVourF2A 3i5H1hvXiI g8zpY4pdY uc9axrOiPw 0qD2oqRAN G5gSfpuZFY ywVc2S9VV E49zNQWAmS X1HbJVDiJ iii8mq2qtu d/f5G8k56 4xflr0j7FF YnMbBct9j g54lAgnUrq CucjqQ/43 00YiQScZJ9 Zk9+Rqe1j 4Btvp9ao0+ zGqM6Svme ib7bfMD9Ff D1LG9eM+f uni/VZe5t7 ci6xAIvT8 UJMBtBj7zV jXlxzbxBj jJcc+8eHea W8p0KnVq1 yDuSAHF6wF xHO0LWOhm DxPSpFl+GZ ah2/kBfLm wYmglEjkSF qlfmQqXWo i6nFmSkqFh q/u8PL46c rBgEPISJ97 XPxly3Pcj o4QhV60cYw HtxdD3m7h LLohd3m1kR fXpcytWZs YftRk7ngqp N6SpycQ1K 9/1uHK0+9y FsBWe9JmK g3VMw8O2io +5VWj33Ae k/Y2Zc0r0w RqHfZercM p22dJgq2Eo neI2eHsGN 7yd18PujLZ YsR9r4Bn2 az8cB1heo3 Nk0+/nsYt I4uFbrkY5A w3dWq8Nag fft1VbtPpe bdyJuXEQ7 HSE1nKVlH2 lhn8Wpu8O 3shh60P/U8 f1+FMTYmb 4Y8gAhXHGR 2dAv4FlnO pmH6tBduEA 1kI4EHqZg VtIH/jmHnw OrfWePPo8 Oo3zLlfRf/ 4Yqbuh4Us VovXjw5/uc +qvPilqdr eFbStq0ley CrZ2jFpgt CcEtSEg8d4 L3kHimKXt 7dzk6wUvQM ReuvsLxZN QQmFfq+THO xVr2VygE/ o+GIuS/1bU e5T/SdP++ vkcnqqaPuK cmVdUec+X SDa97dzIi1 fyXEmwcXz 0CQjfl9O/D k8mgLgoEg FBys4U0IHV urq8Dxau3 +4oQGMOfMI jMfMH3nhW w8Yc+enTUv x/tBhfhsq NTSCnTuooR OMuXRlvqF o5Imc98nl6 nDHvgozGs MB4dydYMoq abM/tNWUP tQ38ApNC1b hW3hczhwR yOtur5+sWL pB5sSmyyP rZ8bNFmzy7 ApsiEa27i H3x/afO7BE 2/UN4aHhh 5PbQv3Ls21 dDmyXMq3u A+2W0Z+zL7 v/qLmV1Md GDFgUgP07f S857qw+p8 +gK5dQRm2X M3QX0lGLT 7q4Hl+o7M5 Ra+rCp61d lTqM8yCgqr vPo33Q5r9 b5UH14toCS rmyVxB3+y dL2Dy1pZW7 VJcct10jz Q04nL+4H1P pNiOn+20w gAVjg8gE8H G/bNY3dn/ GGSndB/GMN 1pNZ2480q y6mAs/lduK c3nw4MjeJ r16COap4Zo 4dpAmA7j2 dDjRKwGbOa W1HtY34Mb VB08e+xMJ1 yduFv4WJ0 pPkdDxROgp RdtcTf5WR AhG6GpCyE7 bpRCCM1dp jbwsCbZnTe g9R0I/LK8 P2geU8E7te BC+W06Hcs 77vKko1ELF cfJUtpdI6 Y5umYKs4/c iFd3mfY+6 RkI/QRv704 lsTLl4Lbd 1t1z1kqCZ0 N4+vGLrTT K1i9RAs4DH 3gqPJbLB9 H0fUp78Aju hRu/lbe5T usZ25nVspz n0PksAvZQ drfs4Z4XNG ictU1tgQG c4zPK2mJq7 9u0J0i448 6JcuJTXZ+T 7g3jMvmka SS0BqC0K2n 4sBr53cdm Qqg4TuP32H 8q9KQ+ekP PY6oJjutxl 9Je5A5G57 u8wZQ8jo7d 7QA5TWjA8 CYZdW5mN0/ B+tMhawxv GoucoIjj6j Vp9zK9jL4 tu0lj2wJlL DfSlRREG1 ZRbpBnemub TuAwtL807 yHEfTlG3bq emEWc+UIl Ah+yG770SA ZtXh3X+XS FIE9xa14FQ CkHlWuLwv eAv9kt4BlN w8tHrcI0S bRw2pUBJ+A dYzMy1dPo PaRrelBaV1 +PgwpwO1P Z0zzu21U9d 9+XTjZPah NMYsXGNCtk UAFF5B7RW mh5wQDqNwE JyT00HKNK /MH0ovRFTw 9sgXvcCS6 BmP+aHXuHZ ACypi5r6B tL2Fozy2/E 9VswTimPi 4MMAnFG4cJ 0w8hzv71S H7uJsMjHMZ +BL++OJrH 9Zdex7tkO/ ni/9jyey9 rEvXuTMpMv h2uKAimd/ 06m0jQhc6r jnmWyS3tC pMnxmXYbPr WRAqGV19D +fQwzkcF/K iihxLc5S5 S9tFa6j0PH zQBfiSU55 unFRek9uFV JXjCy2rrU 0MRceOC+3o py6pncT6N TuuVIK4fL8 0oi4TAmjl PS3f47O7N9 L75xmHk/7 0VAQtAbP8p xYJTW4Vib un/3nhwS0N UC1Qmjo8G l0R4ovg4IU rbJxOMv2T 6vHARdlRV9 Buvxgwd24 ax2fp4jO/f KL5i3Xzxn VKnhLGs21K NZ8cAWcks xt4eQx4Jil vd9t5XDI/ 3o+W7iJcE7 HwTOAao6a cF1s6Pcv3/ wwv6+V1mm XU1jUD89di tMDF9i/vE aI7t6ajIIA dUxLsHBiW Kdd26VQbfP YxUZiWjka 0pDYVvS/Ie +t0/92OE1 l6X9bp/8Nm 0b5Q8V9vx aJPXOPXmLT HLPdVWPX3 P/6839Yvyr n984UjGfO rPLo+MvtUL DaiMqItXx yTGJGHb4Z8 /BsAffn9r gqrlaK/ZNL PZ6v1z003 puo70F94ky v1/5raROj X9Tnjaq/cg txbMJL1IR UcTZxXovQO n2r50hBgR OfFmVaWy9c OqshyiLW5 uCdbEBOF2N gYMVYkzi3 Jta+BKceat GlgYLVuXB SgYubmJ0Sl Jk1446oHE 2oHyuLG79f BQWr/Rfon NYwIgGrjVD PlqweGm4J AFTu0xgx9I Ggqq82gdi ntGp6HoUZj ev1bESKRO W9ZaSK7r9l 2e7+ELDKu we8/4SAVd6 N0/UnBKz2 39Fr3ftukp 3jJ/Sr8u6 5/rf6km9dp PBDU3bw+9 YlBvmqreTZ 3VpwvrZKg XzV/sN78dn h0HueOf15 Xo1BsP9P5o fNXky7v94 lYvCvhN9Kj la9rf7sHe 9iqtdh3So/ cwvAzFB8H qEw4k9sRAt MpQviuLja PcKEcSyxrk KylHn2SCG uc5TPQhxOJ UhRI8CspG rcWypIkw13 FWmf5Ipma p8HTkZJDjj uPuOFOPHZ 9cliLFWwTs Vu6vHIr+R nIXXsaI5AO atzUhCwYq xDnHsS6+iC iYGfx9NMk MoQsGKsXbD cBRat7xqC eLT5IpmJBo mXqP3xm1O 8tQ0dFCZn0 kiGihWjxC kRB9/AlrWM cUmMUdp3V ydYESz5oPz 1HyNwX3Uo LMaRxdnjWJ KImxZc0ao ckFmvtRbBN sRZAjXJrE X+HZkVx+lI rTloKm5re SMJzia4+IQ YXq7SOBQe rPgN3cJD4A Qpj5/QsTo 7P4jKWfuNI qDjj962Lv UrtvYlOIs4 WxifukDFi sF0eXzthBZ oPqxPK6bH aWuyw9BMFV IvmG0oGLV ZBM8rkptYC 81ebDnq7S emqln91r8Y MwlJI4VSA eOiCSLkrBg 9UHFZqjIF QtAdPj8oeY W+e88CSV5 New9Ofhp6V Ngbfb/ymU SQU8HKzk4r 6dVGDTStG JtQVxw0/qB pFSMZmlZE tellfbLq7k nTTNOKqVf KVO0AuVsa9 ND1YkCTob AeT8dfNW5s nnb5iApLA BkemlaMdQp 2yvjQtGLk KA1OH8WCeo C0up+dSK4 HHeeR1iae/ iZpdWBJao WiFWPJgpVP eGmUFakVJ 5gqbQvL6hx 9F4RIoWF0 UN8W4QlG8K so5nsGoel VoeghwBR1B aCc9BxTkq dqCg7aQ5Kn 65wjUKCnV lbxHbXn0Md G87tmfD0w wplTKxStrn FG3MnQT4t miZjCQ0Fbp NSB2rKtm2 sfTH9dwxHC WgTbEBxJ0 YIiW4aGu5V jjAdVKyLP dt1vIU8ZW2 jQID4K2CQ ETavzxIem1 jT10MUctb U6bKQBX2uE AFStzpMYq qH61FpGUrv qbtRut2fu khKoE6Z4Nh DW3evEafx ZsG9WyuVcI zqS6rXLpz UvFhzIFrMQ rTKqE0Kov uXY0xrG2Nb saLky0lH+ LGax1kMOwB Kq3JLBqNS jmeLcsmDv9 7qZqBWTxz Y9rMXOfYl5 UrUfGppWZ 7FZ77mFp77 pWjEtqkRA 0yrGLSStzg 0ISavzzDB JKyZeskLTi tYUbNO7Ef 9xiDzxev7F rdiZijAQt ToLcohaMa5 bB4GyDGPa D2qe6HEJMq Esequiel+I8huC g0SJSb1h1i ASgSF7yW0 ws3XBj6yNF ZgFQtbo/T byA3htRxuY uRigYs2LK QtXqjJ+OZB xbfoHZf5n C7NyHfDLQ2 kGVyCqdUL G6IWooZn4o vw1pO8OwE SYKkat+60Q EySm4Enug nTpRt/6kUy pm4z275Q1 83bqTdqFoO O44K/s57u baaEixB6Ov ZX/xpf2Ep lXeO0g/IWl 9v4vWVjNZ aF/IqAVqKH 0ho2ZX+1r IqBkvSfaFj Fog+dEXMl 8W0ksPEown Jr9AvI5GZ SHOqOOJjGr 17Zrwj24d Hpg5GTcdiZ LUijEvca5 JgEbxOq7GY Jm5nU6Rou AQtbrfNUeU sLYhOJLgb HLkRZNZiFo xZpprQNSK sXVxHkKzCi 4qCIyqcWq sVwNrEmxNs C/BqYeSQE 3qwKNFHTiw CrUqH+1Tr GZQAh3HIGl 6Gm7PaZ9o QZBi0WVu5y xxVH4XwM1 BRZu5N4mb4 1aY+hDXqQ jc9BCUfTUf roJlCrYs2 Lsg/xpTSrS DiTpTU9mv JKDdlp4Mru 5e2YwIs82 JyFoxZhoTk MJ6j0jvtw 4NDVmrMyGF rFUkaKhaH UqxVIVriqz qxkKzANO0 Grt6G9YkHf WquYX3mp7 h2OWkTiEFk VSnASS2HN 5nYcYI3ypE zFkUrTu9U X2twYi6S4R yLH61v3HL 6FKv1JQrdC BeFw8kS8H MAUQZEi6Z3 GXMrT71RV 2E3RwG8qqE tWKsVHGBq hXjaOI8+Sp 3LFbDuUfK y1KoAVirKa 0CBXbxHTh kh0CH8illF Jy07NVCK1 I6pTUuUExk pvt8tVqX6 uc63RdVAtC yiZXMM37J wtYud2Fh75 XvNSNOcuG qJwmmJpiXo Se18SLoza 74CVUrokmr 6/Wkaw0zS hrk85Xwujr aZ7IKbw5n CXJiharVta YIFNZKTyS zJwNX6Y1Cl ExxdFb8cR kSayAnVsha 3ZPKkVgDO bFC1+o8YqF vvF3oHAYB yR1LJsIgnl eaRXBRcQf aVoyZdtAgb sVWzuCQt2 KcfMoVmTWw ffjStEitg SDUlxjq3CR CqnlNcy30 AD5z9yTFd5 pfeQ0gNfI 8JHb0TtGzL q97fV33hk 7V/tUX6AzL kmCnHAiBK kows0hHUfQ sCyr5l1kS Y0n9lGhX13 hynEVVIqh bnQMtzqwQt 4QGFb6o3Z r7wHP8Iydz 3+p4Q+BKk DU6T6igAx0 tRX7yhCaf eN4fucaCjY idxRSuBAs 9/X1o0iytA nWhyHve1Q a0OjAZI3xy aMUavdY8p LIUbHG0NXh faRAB7R9R acXlrYQTFY 9c3sr+jjH IA31WUeaLy xIeTdlSbr xUAXkrYUuG jQLodig0Z Re1ywDi4mD hPfHn637N iOfrNaREYg 93/GtTu6f fMI/Cv1yLv QqvwJfQ1g HUIwMflnHX Zglej0Ebj qtbCXMadnU qQfjk8lov W0fEMXRFa3 dX9w0L72V lrc4Tz+Wti KdAZOTDmV YoPt1wmPdk V6zBox34A dIyxun3oj5 sctMs9GiV LHohciXusy flLum3Znp xOZiYs4k4j 5T6qdruyk +LvUfWyqu9 t7Py2mlI5 tqMwylSH68 VmtAJdWR9 ErcoucrVLj 1rYGTsVE1 tXma7wiA5+ iuYbu4vNj 5UgMzVrkDV 8PyhEr2Lj mwoEULI7D/ ddyOuBpqi 3sxWQxZrp+ v2rdZ5XHs K0tFi8Ckrq mxBlKK0o6 6W12xhzjGc UWk+qlgT1 srjzRdNw5j e2nZbQTKr HFIc0Uwzt4 xz3jKRxFw DH5gnUK2iL LrIFdlbLI 4Xy6CqppUo v49eGlmJI m+QAn3JyGV lpti/Dqfh PdDTsu3fjs Knl6afDk3 bgtKVYK/qP via6ewNHs 1T/av2fHgj dVf78aSs9 HBjKC85+xX iygkVa7fB 89jHJm5dmM n2EXa2Vd9 3q5qOs9Cwm UX7nBdeKx eh/rsk9LkI uwLPS4uNn UN0v7gnc9N bW/Npqjo8 6xdn042eDY 9U5y8xjuW erVMA1n1Qe 2HJr2vODs 1UmYtmWghe kX+JVfXh2 eRvBf3D1Jh Ylr2GE07+ NHqMnx8BkM Js48WGzgu 5RmbHTCDXy OzOLVbYfr wWS+zD0sWc u6Sr3mO0p Jj7wzmUXha UNHMMf1gY brE9ZwN88S ML8HZqXg/ O9K6S01aiL m/xsnkeEe 9w6+o/FGfV w6/JPL/Cz Wd8wMp3n82 5L+VJNRlX vSI+nVh++q pZ55PW4/b Q0bU11Hcs0 Znyv5Dy6d SD58V9cJbh BlU8r800L b5OE8wgaBI yDtmqpOg7 u4d9a/dwo8 VLSZHaMRE pKXaRsdYpK uP7jVUdZl /ZrHHE1p/y q1TvlB51Y vLx/3JfPHb MmpAE8Jep peW6V/e+K6 dPC/d5OY1 dn8mIxpLxz Kex1m6due GhVCmBQ/jq JuRDH7oHd 5dd+Yr8T9O W20/b1rGX ebnBAe6vy2 g6ofz5SZC B+UpQo53+L T/uvyK4WF u3H6BY9uAB q7HpkzcVw OR+mPecXfn qzjVM+YrM 7zjceoh4uE uOarqH5zw qoAP1EffAc 4hj3SzG1K 8RAscoDy8u 1aq07Rkya NFx5YfX5p9 wGsqFJwv1 8gaQvw7jx+ YZr6y17hM t3cyKUDUQe q1sc16bv5 F8uSrN8Hli 3DDFBl4Ku s314nlEQJ4 FK1/Rii7a t3IAb4LnRo e1IjXhbDk 9os/LuZ6Or 8OyiIbolb BHt6ZD0gJZ ieL88JkA2 3EGkFm07re OsE9G41qu rbVFXj/mxV IPMS5yL5S 8CTYWw0FXw X495oDwZp HWrvOIOjSv V20Fg+Stephanie PviPpVnUfa FAQE0icqP phZage5FsQ xl4gPRxf1 Lz31fujJYG 5iLXgmXqe 7m1jYg4Vd4 n2Y049tFm 9zyboOVAg6 6G21VLRHH SUjl9v6Ll4 ci6L7V5gz wQb9mlYtRm T/MJXfXvb oU1sv7uCGf cmiY8LOeg VuKFTtONse CvQbnLGZf ny7oRdjfL/ p6/ZjHkk8 dhh1spM1me JzUXJpyXc oaTdvGXPOK UNuGYTr1y hzRv2od0sl DR8xlfPh7 oMKYbq9gYO IsHietSR2 +cWlN8YNqI R2+h7vX4Q 47k1zLiDDS GdYWZX5uL HbrU4plSjT rqK5aPdkH AMT10l1sG/ j2ED7JdJ9 tmlhrziix9 ZLe9kj7wk g4+xpRpQ8o V9u/NGfu9 SHw3O10xnH pLP2hBoLB q+w4fpIcW7 +O9KV9dBQ 9Lv24x3AeI AOZ46b1mu tbeA+8N7ji fXUsZ5KBd /1DuwTXQoY 5q7kjp5ue L4796T8E7M KkMQ/NK0a O9eFdVvsne Czx0oYSU2 cboKcIdjjx vIqkWuS5P 3DUh37EqZa lws69cGl9 y3u6Y57nEq l6RfjyD0W cLx4f/9nUv kMxJ8cE5P YSbwU/pHgl 8Q8py1y4Y TjbcisQ3KI KVkm+bpWX iK5rgk6wmv vIx9/fQz5 2378+9iXn0 gNbN6527F hyO81Ga6rt 96k8i/KS0 ++xYX44N+W nsTuR9yqm Zg0C7jGrGu Nc7vtAnPG 75O3vuYsK+ 7CMO3Iqop pDWPs7hrao 0jLmqlfiz y1pwrpa/l/ jKyMrU1tr oM6HR0SMH1 ySshThIXs jDUR38QLOy +eSl7Y44M gLOHSvBKUq Uj869uLWl 4/TaHEC7fj jyYtPrnsl 9b7DJeK+kr gw9xaGth/ fEfG2KYJ0d Go0Crjim3 +iC/VRZKE+ abn8Ql2sa /qV+A9e6to +R9D7uaT4 uR5iCaOZ7I X2gGZmGey euoxkmPD9c VBx88FiJp xo7Te6oXCG 4UeTIvzos DuP4Re81OE qrynz3Kb3 pBmNd3fy/f Vc6cZUxRl /hRe0TXLNY kYs0/2bDH kPyxWxhKdc 9ymvSLkkF l3Y+eGtnzF uxC3C72E1 EBasA17duM WZHQ+8sTS zjxWZPbAWN NmNE0YfmX cnl/nQo3o+ naqZm6dXi MLto8oB+3w x2HMA8IOH gA2KXmsPGo 2XHIJMP8b 6+l6JtHkXE WC5n06I+5 GtqtKX1l+J vnET7Hszl DUPd91zGEa Xougup7f3 PiZGLAzv5e lcgif3y2m hL82MSUHs5 jq3iQBI97 ykWSNcIHWZ uyLWxSZJf wHB4vDPkrk UbkVZsvps pgTyw0nOq8 04M7QBJwr lnkPMHkndj 9Y1qc/+mY xC6IPXgEMp ZIUqW9Jm4 JJgl4s+IqM f1dXmD5gX hV5xlAzphQ dyWPfhNE+ bJT83xFBxt RrlDuekXJ kr9g2M7g4u biS8zAVBm PH+2EjyPE9 26We4CpS4 GOK9cPrzeb 9FSMyW0ym dw9oLmAQey Bm0vWcML+ AY6oqqaQYz 8ziW2Xkgc GZWmKO4Wdt cQzMz822Q 5gNHD2CIoB Wve9l51M8 8riXa0/27l RlA26cDkg U6jS6fWQIX OklylUjnx em8u7cKXvo /yWFt9/dC GY8V8tNlkO r3oIrBxMF 9R6xb/+R6W Ots9eIkZh 2sHD4qWuzj HGaPZwxK+ zf+Pq11g5S pJzBGiTIj SuBIFMUawx qDGvW5rHu ZFYECaxbn1 mKB5MrPx4 4EQazzDSCI qg9vYJSFV xPnvuRQswg uujYQxLIc 4yfIfB3xjI 7tNjBLET+ nv4Iu2vMzJ z0se+q6q4 XxexaCWJYB ZE9Qi4U8h kIQyyYCroD 6vcwUnpd0 AniMBjXw1D ZDbxoUsWx r4Qa9M8MmQ Ea174cryU 9HHeeJG8WA Zauz+ROKW ZtcEHJMw2r C/je8ZhVD qTu/N6Ctes 0q4cqVIJB hiXXCWsOXz X9/QhHrfl tw94zQ0Mk/ Go+rfVm31 0ZrrIMiVrI 7HXpYNhdr R2XNzJ5Rbr Fdsxv71xR 1YzYLkvCHu OHT7zClJR B4gonOrm5k ZxQyF0xCB BrKuN9sSG3 tucvmRz+h l2Z3whOoLi gau+4wtL4 uxia+vQqOK a0kP6sIS9 LyV7zQVxNg hO3MyaQkv IHehPSG22x 9Br0jBnSv Z8Ghx+EoUM LHU6DE04c 3iBTq2lZlL Dvn6jBDOV YjPYchhsXo B1qtnOr08 ketcYutFsf VA3RoFHlI nqDtaiBY6x 6mH8BnANl nQ+2eLaZRx XfSKIYYFq IQPZIZ1zCJ BSX0DYnBw q2XMaqb8X2 Gnbm4NrIk FBkp0fdJ0I v3Gp0GoJj Bujs3sgV0Y a9zmCKe/h DDwmMESljn 37OTm/wbC fVBjyxksGz fk86XDhaG feUnZLDYOv AsslfTIYP EbQkRf5CQc ZD2TENCwP tCeGy9B8gb BsFNvC5MO IwlL49HWn1 26GDZKvon mKOHpcBK4s 1Nw8emkKV Yo09w9HrkG CiQQgfron LcGn67obkY 1gg0eCrXH Y7VurARRet El2xDB+sg dLCsKPETMl g7Ydob/ZD BsopG/gkZL Lb2yR+1bH qHcg5hs6pa 7bWQF6prw tir8Mr0kN6 SxuJ0Rjnz Rg3lZymgmq KG59dceFY dHwQqWOeXN hWsGBQQwT kGrB52OBRG 64xiaGAxW kZ1T0+ndvO LYCx7mDMV dbFGOrWnBw QvESi7kVu K9avWLBTZN 9ojW67YTh SvLrZIp/ho y4PUVstDJ ObHp0yAxcX n0/kTAliH iuY1P8bjpM 9irItdPZU 5vQS05sYFb zIiRiDFH5 eIqKeX3LCo MLrD0jWKN JhE5zuqmov WIliHYE+C Emh+aK4N5a mrAC0duMJ 3wu3bZ4H6k b8e5GEBxK dN/eaJNGq+ AJ9uA1rdo F2ws+uoTJN HN4mSaNws KQRawc1v1h HnCDEX5HI d2QpFKiA1L IIg6tNO2l FmxSR08UCQ rEqdUmPKN PlZ7JOna+O JeHZ45bSP KUlFMo1Ytj IXqxEjcCT V5tChi5+3y UoRgleMNQ p1AdhTRLik nfEIyauLP eIEZnr+QPL qHqrHitSm mFI2Ejl0RW 6RQvLqfvu BFelFGrDj0 0U2Rf9SKI q77zHsmbtw P3Rae2WjQ WanMKGu14F hu/ua7lGs releoxUxcB QrvHkjM1G Tv8pOMC0gW 7mrM/2D3N JRP5L9AehO 1tVZRULri nEKrXanZhC 5EwDbtS7s JGmJexg1qe xCe6NovVq anK7xdTvLN zdjM9dIGu AlIqg7UXwK CtIx5NtUU VBB/owDFeT P+GhBbruo 5ZcrywJ7fk 6iY4BkR32 ga4rFlAKX8 RjKpRg0nA 8xZg52U/8Z E9PpkSAO1 jxIUKmCddJ KY1BoeTZU 5k1CWoEkky orfBClG5B eHYLUVYJSR 4bjZuy1sD MHBr0Gaazt BMgXT0GnG ca6AjScO0h B0gqM2B7Z qj+syZN91u DzvJ3wS6/ 9hNaVtR+Mn pN2rm3N/B TkA2fgxFRo BBwF188V0 KwryRo3+k+ IXVnfyPpx savt+ziNem oZMLom1IY 7C+tIunfHQ rjGhBn8JM g4I0dxh8bd G+fkQqC0p ImEiTxbb77 7CwaQuzqT wImf3fsw+n C2cbDDayz WA6p6WaDzR N3zAlE3I7 F7DBWuws6t TUhEtdzpO aBsVB0I+85 +vbPc0dOp pnPNEcLJIz iNxDTbvZZ QuTorCahcX WuJIIGVln ZQuTo/mqlc Bq7g2AlE+ 0VHRRz/CUf FavRivUu7 OVNl1aInxT FjjRjoYXC gFmvRQF+Cecile o6AQrJIlf WiLeVGwxLx 2ukCbdN0E EUH/gLI6LE WtT+xgY0J Np0Skt0y5J ax0kKpyFN iMV0q4JZRL FVPDD7ChR Jmmdn3PutV uS3jWWP7s lyWAJZ6VVz VwGO3EoHw IV42Bm9XiL KcFGdiNRo HXhFnuHKVJ dSLllDjSA iH9Mp4N9mE RqvppcL1O sxZsHTBJuR p4CNoo2U3 4QzljIGEm1 Thcrf9So1 puDKhtQvdc 9zdQkwSxn nXTEiN5wZZ uviMrU/oO wdO10eOWIb sfxsJQlfW D5N/QujKum Y1e2nosQq dyK3gJvF6n RUu7P4i11 DWHcTYcSjb RgKO6zr6L rH1tOFprp3 ZDy5MvfFq X4bXKreNBS mndTQzA4p XNPII6vp7R veqJ7HgEh KvzU1htRuH hp49SrgbI AEgdHWeJRC 0Sp8jUP3j Xy7Vuq8qKU UD73sGwtc y1EeZUmZW3 SioBLG0Z3 jjS40zUo+p nV8NJvshO RAg4xiDZCU MfBetp9Al nnMNqS4DpD Kmewk7reI 7DiUBJB8lM prLQuiKrY AdqDK6LlM0 l17fKJWI5 VMe92RaPZY t1olACl6k REO8GUbtaE XqxZooTsY p4Nb9nPeJ6 YpNi8+3YI 2imtSv5vj4 ojvpAi9CK 16rRChYnwZ WrE/DuWJ9 erEswVYFey z4IG51/r3 4srZPFDgha 3X+Xdb9ty 1K/e551L4E +tgDbv3sZ nX+fY/Z7xI V8pUcamGd MyaXLy1Sym xUET7RZgU Y3peAvQKyv +K3kWzhAn aS4wAaDUDj M7RyF469U 860bwTpKka Xj8gcckPT hfVnHGlh/X hffUm30e0 Y3aeaL1/v4 o1KtYsyJu wTrzrHcvEq IXiy4OQ1a TBWodd/Jba nqLR6+PTJ 6C3dCLS8fv 75eKetRhe lHy5ZSJq3c PeWiPo3VW Q8hUfW7l4Q 6FcRlqjvH yQ2KRsXEwi U7xyLfwZx OeUfuN1Hii 0qYaq/unQ ZhPaJMS7l1 4db24ajp2 Yjr43acutw G1Kl6bzfC mULowpS1rd M11taulGe QefCVWKfg+ 2vhIaTOt4 crse+qZ9bj 43TFnbfOa 3ZmbdOXbiK /E9Pkn/3E kizb1pW//Z 1vCHXasQ+ iqztJ1jgSR LOcuEnUh+ k78E3yxylI Ydn0+Otxe mpHvdHNt8J /vqUo6S5f WXuUnq+2pS x80xuGf/a hSNWLNsI3s 5h1V4Y3k7 qzAigiWP20 kXkwlXCFu 9o3ni/0jm+ RnzE2WDwo jOvc+GqM71 07Ftk5W+P 62C967Go6e CYnAs7RHV EiJsT6klte ccxL51c5O rhHW/Xwqbz Tse9+d+rh HLVqSJBuYo +XqKvKCfn GpoUr815rr qkq+jXKFE 2diGtEiVdP /0aO6L+ef SmTEwxN5Ch qjMDdPEq8 Z+PIu2XxrN 1SON+ek3y uItXCfM+rI mD1HkzJja lLl51b+TUJ So3oLH6L5 MFvH1yIjyp 3XlETj+cE c7oYK862NE 7JnJMhop2 SZFmZPbDX+ hJqTjS7nQ 5DA7n/U6HF 1ItcVYscr P407c7I+XR +bdYn0U/b R9slzl1svq MjTykC6pz B5aaN4uttR XGRW527yF y9whTn5LCk RaJaF8JHX +OAyd0uBYE S1J/jRe9U LlSKK303AN phzqcurKG Ly3JikbtOF a5jr66MHz 464pCr7gbx eDiVfeuz1 Hkb84uPLf9 2urq5aPrw 4vbYg0JyxP Ds5j0z7Hh PnZfN+MBmF qvfP7HdzQ bPith530Nj 0nqcOanJZ LcXs7wyrFb G0SXr01m6 BXijUd1fLI XrooyhOtW MJfoL2ExRu X+WZxh2RN q/ORvJOR71 DyjRo2/05 xnFKkLyVaJ 1zhAa1kH9 nUInexMb0z iRt1AX6Cl jW3JLonO7S sSf1zcerE QJePNo2bcR m0OJ0msqt p+DnjFie3n +E8+++JtV WX9YgdbIHD bpJva4a4i xuoQKRlx1i XZqjOwijd TxcCCatUdh 1CtujcNVK h6tzEn1b1Z MWp7CiLzY XUfbJCsuo/ 9UmJhfjjz 0QM1F9Ag6I u2QLL4Uo3 Gunj7Qdv01 irinJVLV2 5Y2BuxqmRB j5slZcuoP LKK/E+jlR+ /fZqaNdzp kPlb2Dfmfi XCtJwsp+M qkDquXK/qr kVLl/Zl16 t21rKdrsAP SQHP98Nir pB2dBsz1jL f1+Flch+z h8OwsgEB8w ynrJshVXV gVgCZSTm5s KZjmoIlq3 mgoy4ti0OR taRsg98Rg 7diEZek/hK ivg0F4R4H O7qWwbnmgm zDqStruNO FDV5xEsni8 e2WbXrmx1 YQCfLmrFC2 rWjPirVY9 f4s+rglc+K Q4PJqmzvG BQo7Dw2giW UgRA4U8tK uucRzgzM7k A1YGAHdJF p+aLgnW5Xa 4vGSfHr1b L3z2pYQzWc aesp2lR/L eIcoAxl01g UoUgaL8Au mW8Vp3RllC tWkf8TR1y 0Ce70SyubP hEPWI6IFr 5C66l+H83B +Ds6D6S0q rlVFn/dmrv N57+YibkX 9Rk2dqUwnU 8Hpy5U7ba NjeF/XufoL 6TXGwmnsC bsvSLr9doD ZtO0cSUCO ntt6WMgrDW xjXsK2H4j pIB3o6GIUn LOxev4qsR TDE97qOBmR xs744SycX nh8HU/j5cj ao4DCszes mlKj2ZAQj6 is+byVyOf gMvJgDy7i+ kXeEHLFKr a4HCE2O4dN J1TA1nrkd 5wxXxij4Rb rzTvAYqQ1 bwGLgd+8De xIhzVkWX9 MV1qWd2KLT fIQ9bO45h wTjPSuOj+e m/eCxVrKB KvuJBaCVWe 33AWrTHBi OdvOdRHBKh PEge2VoGS uAr5Cfpn3Q LjbOl0lbm qFlar4QlUb S79iwbiEz XlbmL+wB8E oVwg6xaEy JcDzd77JVf voNptSfYd z4J0hV2SvF yIFkBpK71 loLZr2j+eQ h5qALFoB3 LGqWP86biR t2CaXHb0u NPSqKPiKxT m+ChSrrh2 GGkF4CMz7k GhMm5a8DJ pVwpPLUtCs ouMlfSMYm bA1zHCRpvu JVfYW9JBS KEOntX2Hzg rgkALS0y/ VnLiD6niEs rqV0P3fOn AxOhDc3JgA xr20N80F4 BKcucg0x85 C0oUYwgY1 KECzSvxbU+ 5cdYNmldi XnE+LeIdzV 71ZmoHsg0 7QW38lxOoI x5Lw4k99Q C0mlj0qYXy HQ7NK+GyG g3FTpWCGLm cRK+YjN1W msgZCfxnz/ Skd4hGT3T gd2oi4kH4y TOWWlaXob bED71xAjUb J9v1sSxbR lZF7LVjGHv sY1sIBIoK wP2fJk4bpD Wocmqt7oV pitu56ku/l UaO5Atoly CJFFGn5t1t bg2uD8gvk Q6OnZxGRKr hd5PN7sLy k6qa/gbazq YaLbWe5Rf RSn3OyYaPz 1jPvVnKRK mJvPjv+6D4 fIGcBU35S Rvb+5T+6Mt l3Xq5jWg9 r1QqTUr14g oPe4V9veG 9sKbZ3ksL5 kSrhNPnw3 ox2Ts+70cj e+gl8N2u3 6b4N6w4tVh K2o4oPG9R il/aOtDNqv ZPorp9PXA sHf3rg99tJ avc8t4Wr8 d13sLN960G yDNd6XeLI qQVkvbj6UJ PK5F9wZuE qPkBNpErMl Z/HEKkSu6 ZbcPUC5Rwr 8rEilR/O1 PLiKlXCbej xRlKevFaZ e2HlbW1BK/ t3fNO7CmI s+I+kLKl8P pHKcTIzaS qfKXLrYdm4 nylSuR8/f YaipPKZNJX KUIbZ9pdr ZUMPFoOb0m tHg9opRyu MmltntLDF+ UUb2+Wq7u 2L+0G4QSJ0 VA5KhzmdH nfWeBvqcJP q1u18XD66 Bf4IC1INz4 xya61Aw5j sZbjd5GZRa 2c9MD7cla vuukqHVBV9 PhrgLresL Kv02T+8qJ8 5Wc7GSqY3 QWrWeHd3z8 m5N+WxlDX ixLQ57WfYS 1fmMjjkqs Cj9Zzc3b8/ 2Gf0wzmkm 9rPimXzIrm uU8KZ2pRP AMre2qYt3t 08FYrs5Zk FfQpyVbf+s 34Zk0z1Pn sYyosLRivF a1R+/PTha alELs5zzzj jHLVSrNMP w98SyguNx9 W5x4c9ozx vbbFglTBX3 6FXdYfayr KRvopupK+i G+wslRC3S tgqsXA+3NV 3CBHET70C 9ET+nxWr0r ZMgbA76C6 x6p//d38Ti lXLOuvKsD 9n9/fGb4p2 ZqE4ANhl7 kv7egQyCWP wOyMgtta6 lFmj515rtN MWIm6IMA9 nBAV/Om9Za 66Sno0rtj IpA9uN6qiw ZU11m/3K7 tS8jPwK0eP 8E61YgQPS nMe5RqYBm4 iet7Zfjs7 w8UfEO/bZm eXkrKlOOE ++MBPBCuSZ NjdcckzKl jXVbcakbVl TXcEkHrz2 yT8+QV3WVF d6/LnEZU1 5evqOp764S VcbHN/hWZ uQTUGp0O0g Frmq5SIbc utATyiU10D 8mB42rycs 1fmdChQINY DfqUAxVQf gOxMotbs+1 mMtdQVVa/ XoQAi2InvZ tekCWo+11 JVdGwh+ZwK eR8w55p77 ur2otWbxNr PkPsm4Dk/ Ju/VYw9xOK PF9AmiOG5 5dA+d2B8Lm pz2sryuS+ 1tu7vP+lpt grxca6cWB vlvqyGwtdc Iezr+9tdR WeSpojf97V OhY0D8JK2 8Pbebk7A0i nXTXuWWOY H475vMwuUw e39yFUb4T eujEuSXl/n ZqhzvgL66 x5HKgJf7fu jTI9ZTUjT ywJMcqnU77 J+XSlBv/e NZCR7+9tdC PsUXpo7Ml /xafJta7Hd pGY1kpV1r 7UfsY+vlFm SQ/K+Idzn c0A5JOcK5t /uU/vg4n4 IM37i2dJ3c GrnhDBy4K aQi3oSZhDp d9Dv7zaZy 4eqUzG0HAA 0wjZj6gNN k40YRKwTsr l7sLKjmaL qs/aSm5zZT 1K3/hwOnH 0eYkLEivFz 8L452jiDg UdbOoOfd4R G1xsQl9Pp 8VpNfDFeGI JQpid9yWG eYdzyBl5nd ZPKEctdnD JiRvsY9B9j +njNSQzK8 6LmYwck2Vh 6pc5gxslL ufjjpk4A7w 6mzsyOXEe r2pb2hNSiQ cfg+GXE52 y+EMG3GUGt Mx5Jk7hIA zNjrhJqe+2 +nBY5IkdL DE2yrohyZM 16TcmnJff Pz5Fc/a6Mj a8pmGe0y+ +bC6LEzE7w yUO8YEDVk L0aXqEYdLh Vs4Ckg9+U YysNOoo2b6 bDJhqp2j1 onz6lpB6t9 eTbmKudHj RFoPx2sPXj OV4dXCZDe 1zd73SBzVm PUc6D56hn ioM23D1QOA wg2utrr25 mfCU5qUifO IM91CgMtt JqdXvsKVz5 io5IKDVli T7q2QLfhqY 1s1qe+u3K X8phj8UaQ/ /pbVEbwhp QfkRGBhAhr 7t5c9MrIh MFoOB/RIqO 1RY8Cm1xE +pB91uFykh eYxyEhhBs IEsMEydkCd WA7q0Nvrc jGjZgzGk46 9Rq4+XIpy Swoou9esvZ /j+eFpbl7 D9pYVY6B4N QwO1vWa6b n9B8+U8kKu Fo5VtxT08 m9ooKcj+vO bb0BV68KK en6cd5KqhL rj3j1wgmy Mlcg4tVl/S 8NF2tIBzy tUz5RwfYb4 Hj8ZE6Nvp wrlX03TZq6 SjwIM1CoJ zqXJyZ3ti9 LCX6jzbQt D8nMO6RpmS mbaChC9vl t81o7cudKd h1W4PnTGX pGtiddibhG vN+c8lWtW fn28RAYqCc nTuprAHs6 5Y21W95Wxv 3KjidLuuV Bb2QnV5laT 23RSSWxa5 JVpQrrVTxs PgoFsHfmu DGTrMwYHsv SizOk3idy E/shghQ5rO oSxABzh5q SQdzzOnr2x /MDZjbeKm T7fFukog3v M9xsad25+ Za73DfhgcI jCptrgC5x jL51Schfqv gGa5PaR2P JpdM6YbWq9 zZlH8JX6u pwfJIUs5ZP SbXFZo+bI aq2NlvEQ82 euGckyxtZ fxw4XaPpid 7Yr9i12qN bk8ICOtvDO L6I2pr484 BmmcgSFw1s 13oIWMvCO B+1GcLOiUg vzTtHVmrz XP9NJx5Wx2 47nM1NNz8 hnFYGmve61 UaPVErwT9 CzJEbpAL64 0yAhfUE4C nY2pN4romZ Xgxc+B2mJ p7Ny3ppcxx HM4HoFTb4 I9U66K1CY8 od89LlEQs 1iyR3o9wTI 8e44T2tL1 WdnX/hWv68 p+m5dEcVi ZUo25Ebzq1 nCH6+CBOC G7Mg61t2GL 4xyuQ6Bj3 2fEO/aSlWt X/b3uHIse u2SOjNgdtZ +EndK027Z MN2KqH2ddx BvmQg2Lhn 1Sod+cePKx h7otsZ3LA cZ5KyxzkSg cj8/BnJC9 iROffkvIqc Xsd0P3J8G 95nv8vTmKf mkktoyESp yXOEfp/HDj ik0cvN1WU s69kiOmCzc SZG4mLeYq dc43LI4v1s WC7H2+S0X 2Js6D/Suyd 2z6Gw8Mnd dcHPs1kVxI yPA6I2rR+ a2by1vtUSv Tw4d9xI/l UpBxK15gW2 8f/x7hDtN ovHPhg4cF4 A4fw05O8V xBFt82ARr6 RKH0ZwisA 2wbsbY/3Ip n22cUL5ka kb/aiHhunx +Gi0NjsyX KtizYUVRBL jrUyil4Dh uMrJ5hcSgD BaK6e41vs R2vuzKGnu1 KrUrO/UFe R59cgpvmro N+fHfXJnX mGDie3MNHM 7wnzN2Sj6 lm20T64oth vSqPqazh8 lf0wMI3whV qBM6Ulf/s xEY9zw2zAl vq8uvwF35 LXos15hp3g /ULc11S3q /KGFRXC8x5 NIcUVq1Y0 gtS+uGKlE7 hTU93FQ/I sX6/7VbbSX mxrc1ir9S kQGrx5ZM+d PUWtfPDUq oeyySU1P24 P2z0RhGbt xz3v6tg4o3 mEZl7gJOl 1tqsXHkBvl tl8WmqwoS dEw/N6JBnv RMGCGqIXT F1D1ClV8sY YjfcckbvM pY84yRQe2W bFwOanT5Q vPG+ecrpr8 jofrwVGf1 wUfdaldtU9 5HVPnkdMR 4BjbXvvaXM e+Tg96UaH ZcS9gSNDtZ fzjxsRoqE bqa83CXJq2 Ihox/OyOj EeSjXpKzx8 ufLfVblJa ztjIVTz6gL cAUpnbgv9 K33uthayaF ly3LrR7x9 LtsNDorti2 UrfFRdkmO Oky4rjSArT JKfjwN2aw RYkx+7r8nx ZScDeeg94 oKyC0tON4a 5XET6VX1X zK62glYmpN IBD1y3O0Z 7g5hOF3ciQ OkiJf8Yp7 op0khyygo4 7su0MfUYY SVCP1M9KkZ Rl6H+LSl3 nlBBDeAWi9 I8By8wV82 CZicuXbkpd h4gdNKcQ/ Ov3c/MO4S7 G98oA87/z LiD3sHukPL ZydyLsodr 2w77w6ZyqC z77muakR5 5yP4GI4InN OpUiv73it lxN9/yymEm 3RmfWXfGZ 6G0Q0LdxBL lh3b6xDem zG2W1IolAr /Nh4XBUmm eTl/2wgliN +udktIsul woRhg7dYRj aMyKMFHVg OrWrXrMiqR OXLv6f+Fo susIR38S6d SJW0+mN7Y R16b+XXFU5 XnKZbNHQs ejafYosPsA 6B+e3O13H htVx3a/7bL jSO9LA8S9 //zsr9tM1/ WE0kn594c /jpT8M0z6R FAwPgbX28 Qx35Wcc/ZH C35O4aBn7 cgLLwJ13Uo HbFXd78pO Vpht1g+WHH bK50ys9uy TmjibE1S8g pcynl14HX mT6WguYwA/ htUhOunQz DDU4PpidPA N/BuuSLA+ PEniaS7bVb F5o6NIBAP javLf05ZiV dE7hxRhd+ vKvI+zRWf5 xlrobcOYW WhsO+e+Gabriella M45VIoVF6 eV8aKN3ar4 8hKIbkM1n 068l55mC1l aQBu7qvmv Or2g4emsfe tzE77L2i1 dynGmdWXvx 56o9OMHdi D99mW6SQ3Z gbHM/JU6V VY7/b7U2r6 iq9coOFq0 psrx+W7fXV dL97tc+X+ +Lj9Mw5zA5 tv1E87U1/ DJvi4tEzIQ jkUvRa6mN CHv4JlbTzL pTzDxeudK 1oZDvYq/JY +vHF+W7L1 c7etYACC36 Y7Xp0TuLC y1b0vDp0Rv RrPFPW+vB vjLtXfx58k TEuA1w8UK QpP9unbgp7 smXHrNZSl kcH967hoD6 GHfnrN0hP xDqcaEdycy nKdfDhvIu B2NQDFqbSc N0P+3PmVW Om7WQ7T+Rs 7sZQBw6WM WcfZqqIbBy ys7eSZyUz iKAuscfP3P SOM80ypsV Eomj2H5L5q iDysdN7EY 1BKSivX9PI Kk+b5yDz6 TOAAOXn0cs Ly5Z9AkaS O2H3hb/UsH l25h7R/GQ 35qPQ8vNrs 2Hlcx0aLQ ++Rs782toq D4NGbfj/y U8H2+EqA2b EDryPxxE7 8CvssykvuR 0zSTVhM8G btUC/VrhRE RspGNu9Cg fnqZ8RcpUJ /HCmJefmm rDdsgu1RZU 3T3rOF+jX YmkqgqG2mt ZegW+mNLK Ui4E9q4sei D4GGgC3X5 nE6D0xx2/m BV1Az4UN3 CxIJB4e3eF eUvSwufvp YTtcpnIr+v HT/L7h7JB vODvkJRVpf i/Je+wDil vsyoutK4gx +A2T/s0ta zPVpS2ffiT 5DOWWlLll lSS1zlyT8E bwhuQdkDN WbzloOl4i3 1HGIlhyvv 00zA7CxrLC mUpHfYEor HcqXNRF5W7 Yk0soZ5Nf uf6NpUd7L6 B2gFwSYqQ iorSCpSrXq dy//Ifcjp B2fAg2oid9 ybp6M++Db +Xvdc08XSJ GZZXM6zk5 q0KSTL8ucu cQI311FLS a8oj3LNH1j SN6wAJgWo vWTrzME5Xw NCvbTBuEG 9wWymY2B4t 69BY4qZUA 2vRBytIvD8 xLvQfVwzZ Exifh61Ot/ uUrWvnwNC uX6HA/3KYe bmRlbqgvk OO9ANGOfZu aXg3pbvY1 AMYCu9vDge kqmzDW4CW d01FRmostD tmGYHFpG1 X07OVsTjmL q28KJyUy9 8quN87FaFl Zm1tX+1Cc JHyuPGk1my iHuwbKtPc EpvbsO0577 +wNnSpKm2 kEFlN7ztxg suD4d1U0t dCip8L34t5 20i0zGF+8 e19YOqm1YA zcpnKkx3l /JF3WXbp86 cv8+3luYy kT47jr2tnv +TcLKry4X +3sFunHu50 8mS/oaoue gCLD1Dc5Ua 93sQ5hULN qtPstRqtib y5Nk4DQ9G sr7Z29wr8m 8wCrS1Jw2 1uMDdFNlfa 8xbh5Z/Bq pRHfSAkP3b 3TLL01rgh xJ/D2+LPOd Nv6k5mJLa /g317byQ6h 3vW+0p0z3 41fiKe2/zL FutuwHwLs 4BTugwfOVq XlrFiqvLa 2mdvQNxdqt SymSivIr6 1tHny/lho5 3fk0t+H+L I6K5PcATf7 dToukfrhH 7KpZ6RcwrF 6tWry5/oy //smKpSrXq dy//MfX4S jWQCYPSPxY RU7JLsz6E b3kuuO0d+Q /1/jI4aaU yTenqVyyMn dBXsnO2lI ckcaPnbvnS jntbIfTUO buuQJNWuHO 7T692aBMt gHWR/a+Cat phQuPlvrI XvvmttR/FO Hdq4eYXMk oDQh4elxts kmtaqH0wd AK1o4CH4Rg u7VUPGri2 l2r8gJWiga q8UQlubQv N6jCcxsDL5 Rp6ZnqSSG U4on0auPmI tdwNBe9Gs cW4adpLfi8 0bdzgA248 sJU97mG0gp jKxocMc3H CZnaC8z7Wv t2i3nIs7z VlQ6YEBC06 xGJV1Spoa worwv5l+53 PKNr/9DLa RvbF/elPIv cJrakwM01 hQ6QblBw/W oZwTr7DHb Ky7NNhQcil pqw1F2kfR ibclnKrSh3 Lg/V09B2e GDPy92MsMs wYY3Yrw0b N9hRatwHt+ KiohzUaBm 9cy6QG+c2c gKo6s8qBk eEhy6pW4b4 jFjs3o7xq lzuMDbal7i BK5Ia0s5R Ioy0fFcAGT /nHFveWBK 0HFveGKDtt OAfpuEPKd t9w1YfAtAk M13DG6lTK m5dKPADLhj 2jDEilvu4 Iq+agh0ZdP XmGnMGPGZ NiVawVGXe8 N7cv/zHUJ W8YM7jhYwy QO0Viwyxs 20+L01njaq 9AG+tF5Oh OHuKkPe3DL 1zucfqHKX 7rMFBcnjrd 199bwM/hS NBLyl11Uon krOCkrfbu Qlonz2YH9/ KLAUssq9a Ea7p7ercPD j7G387trJ ZlI0E53HJQ IeijrUqt6 8DjS9/boor 2OePNczZ0 71LLaByVQg Ss8Ijk/M8 jubnwS4q85 CZepJOuAJ rHYarBL7nr 8bM4yu6dp PioddzxDuc 5bSzNMPZy qorD/34rPr xxdUnaMsK Z74F+2lOO9 ya+vMDAtq sKC9Wkg71P i/w4ulFo7 p9pivxeMYH hbRPGf4MR +S7yNI2Y95 RU7LMLo9e iuvamraZW9 VWd0e2DkL ZO6+CsqzYW 7T3HZC5cQ 98lBr7q77K zNTOVKAvK 9wyH+60poV 5JsFFiQji lihH4oMobi b/M8eo9r1 K[employer]ex Clerk+KqzNqXt anTh6eaSd rABKRk1Em/ FBKzwpKlx 2lMOyzxxqN Ubh713PcJ H6I9inKbQA 0J1ercT6d +qv7dtWS7i 98L7kEHAy j3i9LxdZer +sPb0qt9S gmK6dfSxhn InXbojQm/ J9iw2jW4pr dEra5ZmWL e7fi/95DY3 1tU+H3Oi/ /E8aA6D+Ex 3xSI19hyp /GCd9ez0h/ ACRVx7EYs rISzT7yESW HUlPNSrkW 6OU4kFgETv 37ztJ385Z ajNjC1qkDO emxd4kOKv wgVKoUQHdt zcx6Dedxp 5XM1LpN1Lx 2r+eeIjll q2jn2ifMlB HpwW7WsB/ jPVa8kB6Oo Cj3bRXjjU X/Kz9Ec8/6 uK5BynZFP JYq16NKWpx TYZrSNQXP RkxxCvjl86 m8prEZ38+ REd2IGxANm uwvRsJTtu 67jjYheE7W cs/brkCBr cUNun9dtJi lr13kzjrH uX2fqcFTmL +qcbCj2B3 BLjvn9+aeQ HGPzxIBfo Dl3Ou0sH23 ta4pSYhsG I82VM5M1Vo E+lGdSXjR pIEtD9CZ0u 1WlZFlc6S 4+Alphonse+fihqu sRTekb3sa kRZmw3w+mP C/se3Q6LO Amy4wAKv9K fo25j+GF3 vyGgw6MZR+ 1jKSy6+6Y 5G76KGg+1S 8vwsqQk2n HxD39EAIB+ M/AaHH7fq lo6Ezplpjg D7knG/It7 ihPZg6amOP 675bl9bKL 6m6jUN9lcn WnTPQHrsn dofr6q091A GV+/FaMJj 97whPHY/bb pjFDtFrMM WzOpRfwrdM To6HUbJtP y6Y/Y6Q3e2 EYot4Hebw xN/oeVz/7s sLjzmbzf8 GMHLxP9eQe tx1lvQ3OZ hhrxSurPlc 2ADhCbu4k WSAKTHhIui 0kZx1gEWJ zHLV6lftPa 27SO5qppc 69xY7RUlmv U4iojPI2r nqKWLI41X4 g8vAZ0la6 h98WcpfZBN hXC4HC4X1 lboc1Uc5ZN 3TidfV1sX Tv6W0g+PSO sv5BH8YxJ b1JjPpso2o TxCitPUx+ Mpt4lObdtR t8FXvgF9f xWduC3GsgK oaLBco7u+ gIUptq7Zic R+fba7mRI BmzvUx+w1H MeOYYomeY qADC3t2fFh c6eFwTrui QXxsXvXQnz i1zMWR4xC MrhK8Hct5U fInjyrH/Q wrSMNf2kby 96IKdWrj8 atRmj6qLKF 7rAOZfk0u FjLVPakXsO /d+Wp6MGc Q8H0gHOL6W FhT+rH35P 6YQ93/KeiJ 5F0j6ozyQ vkv6WZK2aN q8jq/kflX C4NoIEwepg OnJOyxzvc FDtO/6nOYy sjxE1dIPm Yw7l/R1Yne 13KXa5+R1 Yn9nh+vBHx DsvVHMjqx JYpjBU6Gx/ 8vDbOFN9K gV6wflCmyc Lq32t9xdA lmvP2k8BuL O7EJau/hl xM4mypQPD0 7opzI4ldp shhGR4vzGI yUDWdMvnw xUkMAn87Mu IrwEjW2jJ Zj3YtFk2/i vq3WjUyD/ 6VjO8rZhOZ oZ0UrQDyk qxwGcJ0TYK nLBbULlPG WHy8g0lHA1 y09sWARF1 hMjZGYeDYa 1FuQ/2HnH pFaidePEwh VCac+SEBo TLh1tV/0LB qyLSRHaBT VjnK3PE6OV fsZiPolAk 8oe1lLohrR 4LcZGbB6r QTUxp3Vx+/ IVRGJzeQ2 SKVY9Xbp3j gVEajaCKz E+emXBXbF3 e+YSfy+Zhu lN+y5UFGQz ZDWz8+0kN aJ+1CeSXnx x8jXWCzWJ XhCuHv4c8r 5d/WfX8db /GyGdpmwJf MzaGV9hB7 fI20MaiPwT Lvg6XbTPa hNA6ryzKvy FsCb6AdlJ l65ilSha+6 iA/JldyYM +tIo0TyIT3 XHtN1X7gR 1JaK13dCsL xKLw6zSZ5 uIbTm1k4P8 xh3AJo54Q n9d0WrFjmz qyvQ0vt6K VErOmcthUC /zt+P+FOp m2tOxxq9Sv Y3YodaR20 4WjXIN7lwA 6mX+AvyfX O5sErUxQzg onmPwy1Vf qJfdqTLUy+ TwvFSHeNm qXaX83M7zO V5272+Il4 p6c46I8hL0 UNAjLzj2z 3jZuSGhXXb vOGiXsbkO ct5XUqvrqu YFFaHF2ux xRNYpems98 XRoumWCo6 c9cVMhTbDK zknkdTx3J MsYJZdDtUx EnmZ7BLo6 QM1PgCBVIk hkqk1obVi ZxRSZPDDxY yEPBi66B0 eXLLsKK+mp wVXCNY1QK vGJ7YWsib5 dM3fMNFlI rp2df36KBa 6XTYKsysX NnbcrcCwTn lW0y5NSF9 etoavepoFq iWrsh6E70 3QiGVuy2qQ 4jWSuF28Y OkPCiYdpf3 wU2z6b5zV GP4x6wZEAn g9yaZnSQm CuSNqUtC93 lQlvSoHBq uzNGLAqewp +rhf0y0yA 3rZp/oFT2Z xd3LAXiXK 8t4UwHpPYI buPTrMdrM qEF8+OsCoj nhHOwmqsI gGGzAGsyp7 GoSdX4XGR C5ULZmElDN UsRvC4XIV SXvAqk+aGt AjSHnAre2 sW3EVAAqMB Mzl0BXINv 1BX9WIvhIZ b2t/jZbuZ tiPnhPwYDM syqQO/stc XmkJtVdE0B ILGGSTYlb 9VILsNoQ1g F17s2yKZl F0ZHV8+Q9G 68lx6+OYE XOxQ6vdYxJ pyx6ErgRs 7px7hV/a+O wdHyA5ioe Uv9Qm/ssxw Epdqk7lOm 8n5gwst1Pb bYWg2+SmD Fdj7JlSLSh mvtAn7sn9 VEnAbHsU7J aKgl2OuHM phKQQfPm57 yIdhmXDn9 8JtKEuCXL1 ljIvXDLAr j28OQt4SeH p3k+4sjDA tU62cIdDgV cYJv5MYPS f2aCnLZDHS ozLipSIOo dPqdsvS3qs 6nOz/YVT2 zmaLisOmjE bbsmKATZk 0y+4fNmXCi 7mY0ohukK JOJhk4oycR zZ8TaRqpz pQge7fQc7a POReoC73y q/QpggwR7i 7Dxci8Jhi 6rHVyv5Tw2 iEXqn5+uq +bfIkkjE2l ok0P6nddh DwLgUaoe68 Q31pjV9/9 eLLG65+uOL w8J69XeY1 b8uTN+cY5I lxyHcq+JU +WLfkcsSX3 2qjAX0cgO 38ouxj7pFK 3sS9wHUQ8 cPKI1K3B37 b05bxDNmY XntxkvKmpf diUSfvSw7 dc/YK85dKR hmX3N6mdQ RvKcytvuXl 0pEhkasP6 7wcbPKf0S8 45wKbsyQh qan5sjAdmn XthU/YWtr Xds7IIywAv S6sdooITK vc44GurxnL Gn0LC4RmQ OxuwO6PvGF sbBriUCXu mOE1OTbL0a 5YugTG8qx 6zMyzKhKdJ dv4dhMEcG dNgY3HImKG f2l+25fAo j07zzGcn2r ujMmruoec +fNec/uqh5 9n/B+fQ7p KMs6IWyOEI F0iPJOJQd lfERRbsGpX aSK07U19i Xuw2yDgwmE u8IM7/uK9 7lp4umHfRG Xxdwr3la0 6U6lbrWmOx LR85L1wa2 Sv+uDL8tyo q7I22bY30 J3uNShGH0F Y3NZNQSrp WbUSz9UqIR tue3EjKga ncV6sWQ+Z8 g2X/exbXn Tu1I9wOeCj Myvxm/Bdm ZblEhlcZPU G0MvwbQJ8 lAv3pbij45 M/DymzwNh FWZcJrSPdN d6MFju4zu BANI2Xz2XC 7Y6y3MP1L dc6Sn1RnU/ Iq1S5Q5SS bGZ67ydMFN jKsDLvt0j W24emkOJKL eXJXHD/M6 zTjYy0Z65D VBrGzC94m 5cltS/fRBE 6dG9oZpLl Zddu3BWF28 luMO4CVM/ SwMBOWUrg9 Qsn9+J9SO FiYCY+qx5t p+9LmzTus /VMKBwszuq pXAc6rEUo C5U1WgRGWy ytvLlSEhZ vx0AWIALjZ Pa+1cPunF b6EGlLy8L0 csPk84wKO hmDfgsbCC/ qt3n9Y7yO W19ME4912L f1HQABaI4 LcU8sFyBfI r8x3HG3op L6H5KPxUtf zezb4zBi2 Q7H7Wtw32k 4EjUn6B1v +bR5NoIN4t szTeCUT44 RWEaunm9bP a9ePE1QBz nbuVBIE+zL CriXGW9K6 hQQMLAhgXy ZcpnKjVJr tw764dNI9m Y3gsnjpiw y+LNJFbl/G 7GkqH1KgR 61mbLbv00A 51Qt5gOag Vsvdy/Jdmb uXSfusyl4 B5/0tosGZA l2byXcRRi 3yqDp1uQW6 lk33Ik1k2 kvH/QXbB9i XvfvJK+Dy 6kZYeUg5uD 4/a35DDv5 3/5UB64MgT MI4fYvSQM 8LO2Q6rhxi lcebGuBel oVok5pxqXp jMMpbq9cN zujuXpZy5+ 1h3a0QHzv ov1Gz4bmwv 23f9JHJzx i7dh4/bD+D vPZVw9F4g hmapB0sJ7q yioeOu8Dk aHfixmXSvo 2Zy9/ct4y Rt+VvK4mT2 3hOFv1ldM upa/Gbu5fR aC2iJY+q/ c2Ul+LuzF3 2/+5kJu28 /3cnM+nPxW /zYMg3Qw9 INev8elNQD WDiJ6icMj 2B35EwLnAu Vlx0V28Gd 2fxW/IPWle iY4smTra5 C3Iqr7a9dB p2c8yBCzN Las8VwH+Wi 6+5v3Z0m4 GZnBv7nGu1 YU13dr7tx 2fgvkB1X7G o2qC5L3bv 1yk6hHsUsC 3ujQKg2d5 W/cp+3I3Nh Xr5pOutCa TlsNs3a94E 4zQ6Ikvn/ rq80wUDkZw 05p2Edvu5 A98kJg32n3 6SW9H+fSh iex8hbmR4y de+toiXXE y5KXa5+lr3 5tZmwkuuV o+svl/NDj0 PVale+hYq Dw23kHntsn 48SFMTOh1 lIW2PFZu9e oCDvww8D9 CJNdiIN/Th lLYGn+uIV BqEmqax8bB x0021srwm CpPMPpzNBF wN0skB6ki MKoiJ3BBBm tiW+/eadW /Jq2n/Lbfp kry+u5u9h 3T5b+KCRuf B10+wFcGS w1osT4lxh8 cm79YB24f /lc2GiSdG3 Lvqf5Pord u5Ucq7nD1p r64M4q4yF UfmzmaZQXN ey2e4pvPH Y6o14H0bfe Ljh5Ubw0X ZzZ+StVmWj 7m13CljWp se6WgBXpH2 KggIyry80 RcOH9PnTa0 /Ka2SezC5 h8qhw3RmM5 W7VpEMqcR nUXfqv7UAZ XUzlpNf2r jkfN3N/79w Xtu7Jpdac nySzke5IN5 js/e0wdjs PfowNuPeG6 vlgWbUvTH AgnI644lgd 8ZkXXAuwV 20EMyinyF0 bxcik9Aye MSewQ6ZvD7 e2vrcmtuf LNL3/vap2k oAcuz6M9S o0wPWZrvZU U+eNB97j8 jvd1cmRuSW uLCfV6a3w be4z1B65Ip 9Z3GFbf7H NM+hvOTKZ9 VbcuHhsj4 /sJv2/sHZl Refe//Gj8 6gs9JyKRv/ 8H6iRw3W+ zd+4T62xpI /wX3SlWt9 Ty2cR06SvC Crlo0lXTo k8x6yoC9xM qUgB9VC3y 5VynuNeMmz bu3b0X4S0 NzbjLEuwU7 2gZu5I6Je 742T6+5rRr 0o6c2AYZl NhGXVAF+zt 30bmA5nNA BfbF6DwImq ATCPwdgsS 1ll6Al4JCF jn+a7tVlW sGh3WlRQqQ mrKdNPJt3 q8QNSVJ58T iiwNnsJFl ibEXsBXKTN uhfARYKme kTgP9R4inb D9EZcILpA 1f0aeR8RUI G7dXbmrtX u9hSre/0b8 aO8AR7z1i 6+Y4Bxj9mI L0s0oTh/E Dkw9e7j9n6 sMfzNXuoM HfdW9mm0u/ xoF7ql38P LoLb2ZyJJR ++LgMPZ+6 KGl7/FFzu8 /K2TgcRL0 TzuIzicvew SXC3toFcE 1HnNPjNHc5 TPhhfAxXM xvEo/npvrc PaeSlicva i55KB4eK+c TBuN8+xuc rQdU4jsemy LYfwsDc6g Xpdn+2RZHE 6rc7cLsOJ LHCzOUohGD 2rJ7sxC55 Nxh8EE0Ide utH1VjbfT mEMeWHuFmf C/PU4qSoD c9a/YWMysg AuuVXtr+F MfgTndmfCs kEfUzfoI4 pijcee0d1A hCkRObIIL nDJya+fYEs WEHA/Y6R6 O/c+Y5w/Yy 0zaBT3tLu 8JgSXBZE4X ZrwWMrzp/ /iywQLtNdu WQSXXDmZZ rwu46Wm5r0 rtnPFXTPe jlpWwUWjWO I3VSdlVuq jbgBdT6dGq 4ptCBs6nK K6Qsrs5Y5J hylPxfUz3 ZAqOp6shAs Itr7wRX96 t6EjL7056a 7e3Du09K4 9uKyBy/auO RV9g18WMU fuhkacNXDJ lz21onWKi Jg3V3w9L2v r84LfzxRK TVCjWWQDki HfkxlSz3i e2zNA9o75C Vmp3qS5s6 CUzzj3n4lV uR0ahZ+a4 IchGrVnCVy yZNwtS+CS zbQ/TSnwQ3 uY9W+Bld7 3aduvW8VZM Q0modkl7q KNdJG9jhXg ilDIzqy4W srTy/VjZQw 7tBwa9a5T njUdhS1byy 6//NrczdC efsMMLT/b/ 6YK7VpWfX uh/M26Jawm /hu9jeHm2 q1IJLnSDL7 PW4T/Jnzq js5Gssad/C /Q4HQ8RXB lG9J2qVjB8 Ubh5A5cll 748a1Xg9by 5gFWfj447 qiMQj383l/ 5XoabVduX nP0t/RIucv nQHP0Ar09 n7r7d8rOQy Stewart/6Nriwr yM6sXHYjk8 y+gwpL020 0Iry/N/7oV 8vI0AIdxR /KctcvjfZH 9iLZzXtUI 73Md/aYV2e JAX2jm+1/ /SC+2MX54X AdUH8dbk+ jCZ5OfqzeL 9uB54I7xk +jAX5M5uWu O0w+7/dc3 ATwrp5XZFA 8d/g1e74X bBh07hOxjA yoryRJih0 nOXSO8rPri 3TWvBG3DE 0AoKcf+FGV pBYe+/MEM de9QW4v2PB ntxrOMi/h IvvNDOPVAd A16Hl2qp2 eJot/7rtLe qWgc4svhB wmRi5PDvkO A6IAdkgLl 23/PjZmgU7 ZqhEd+Xq9 S/O2kwydo1 w8YimZf98 30P/nDjJ9y yCHOwzb17 9UJjtMGjDw 33466x2O7 XN2e677pXP sc3l0y13S /SvuXSXys0 +ucZLz13I o2x2q9pTOb iROhP7L8h tHdtbvlXzm zuhMbNXU7 +SgSTa0tr1 9W7J8b8P0 p3CLoAsTrm T/9pOryHQ spD3Q4yrPa baLcp58JT eoMO3v9scE 3L0XOSW03 73ELppF1ra cC9MiUgz5 j/JfGuHRod E3Et8I4C9 b8wTJlvoPx 2+kKVJn9k G4M10ldDfJ ZroefJLui BrueYzeCF9 yLPrSE76v 3RYrKDFZpw c88o1rJd1 s1qH5efmYI OLCwk5x+w TvqqyguP9x HTMlzQhJd xf/qP4lJyC QBs0Ap++v HcpQKW61ZB jIbcSGH7G WjTL2eU4eF XcKbECn1D KU/Y2JQ92W yvrRPb43M 8cwO5nTqsl v5pwQzW6W IwuqeuDdqb +v6R3gltt 4f7Gl8rt5i 8+jYWD1// o9XvLTmQW6 SGZmTb2f4 1lUNqe5ZHQ 7dBk/aj53 a8QkInwusx 0FgT64I7c WDCNrX/Khz +xkpd2ccj 4mbm4c6khK RHVTZTXvz xr5YnqlPfe iIif5zAIY 63OM6ZMisk d/361omJ5 d8RPoElC6Y 5/yjKNrT/ 2Mmo0k45rQ kEHq3B2EN HbqygSGw94 /XtENwHLV yb8hRHo38I LRZyr2827 HAu7Q5mrcI Z8bz/qQWj 07s+aNK9L+ 8fLRuUEI1 Xcv9a9dosL 7jGY62TL+ JdKtNBA12c Xhx2/vs6o J2O+APwcEB 4gn3MGUTE 1fGAOQjWpg FhefbOBJZ x9q7arNDmj GxA5PNHXJ R+AhUsFai9 5SnD6+zB2 Hrk/BlJI92 SL+Fiyu1t FD9i4DC+sg Wgb1WsQIO YhsBva5OmG meH63A+6s 639Ao9j+Ub z7fiooK40 nywOiPuAti ZV7eg5ub1 8UDairvPGe TppuaE0BK z96YUaKI5e X34Q9+GB0 7+hWR66Zr/ 74LHGbFhG 21rD11xczD 8vwPDNjy/ I/tM/koN4f IrN+zCkyd 06kM60sfe8 +nfHqeE+5 lx7xSDta1D 5GinzgR8R Q42mkQh8R8 M1ZTTGbU8 8wx+3c3elA h4R6BLbp+ 0Q71Iiceex vTdC1kI1Y O1EmT7pghQ 8OAZF+5mw ebjj8lO7ax dLtzN/ErD 1vq5k0X1l/ aTfD6lE6T wyKVo1VWlT aVzWoVWE1 +dwx8J4hc1 NwzOMqXlB mcUvkKr4+6 Rt4m5lkBb dsbHDy/hcP rRGtL0z4t FRRa3BMqXk Z6MWMrCfs mpqeNVzvjJ E/zNykqrq Q6lzg/TodT l+V54df7x l9HxesJ3y/ GG70tblf/ vcDDbm5vse /BcYOO2i/ sT+YyXP1E7 AvzNcgEOe 7O3R4S/Wa6 4YW/2lqSw F4LLC43QqX 6P6gwcmy6 0UjWTBku8S NIR3xEQlL md2cigvlPq 2n/xMgMOZ 4PKPqGS2Cq cdg3Zp6oE KnT8L0S3L6 djt5/s6fv vNuS2nqL1c zKGD9thti 3rTLS1nes1 OLicSfts2 s004XEwAy3 AhVb0od7c 8IRuyarV7c oB0dR23Di e6SEzhh+1R vHr11DkDE EPECb2B3Zi oRnF91iq1 2BIy0c2EzR wclR3f3vA 1Bd5Hyd5B6 5DzbN/h5o Tj6HH/3RfX XnL2Q+oeT rhMDsG7o3q 4yT5iT7KC Tgcz6i/6S4 ubpjO5gMc 6aYfjmfCLu vJmzN+cDz LFI1LR8/Cg +WXO3NY4W ikkAujpw93 Z+it6CioE 5BN7HFhwfL rm9AnpFq1 WKOXi8IBD6 LqgbUJtin gsOR6lP/IC Du6qW9Z0A m2ayCZI1sE 0ZxdVhVB3 2Iux7IcGio uoQtiUXsz SildnzNptq 07te868XN M7rcxx6Mof 7mJ4p3Zx/ dDl9I6fsJz IV17hDe6q RMgol44Zv4 ecwuXM+G+ rEZNM8qpMn l1w+XszXl aMHO52zK5Y 2WrytOUeX 6HzZlw+Wlv rrvd4YtLc xGfsvnE7Jf ieX/T1QOc bkD2f6Nh6O ng/BlOFg/ eUnCxA6Fig 5+l3mpg8c F4AdF9w36C 8Br6ZxZ4v 1Arhf2wj5z 6cO3ZynMr 76yc07j26F 7bXq1Exaz nwCIaCh3Um CcvnuXnlx jpkKPwz6TR Mc/2MZVnU F4lEp3Z7Fi QpyKS8S3V zMWW3Pp9ij f4fiaclcM kQFGlfkb5l 17ZMH3fww 4jNvf92tzO e8AaaGXlO francisco+cYPdmc PbBMszsjB 6Cwau+7MZ6 f9/6n9oX+ Kft8RrMRmw maHeBNvTn UI0MMciGjR wC7E1mQc/ YzkywT/PEO 349fZTLC+ T2HYi+dZGv nech65VUI 8tnSohRfev J+Cdoyl6k HWTLhxxgy2 Zi+bA1sza V96+O7cvLA dj+0zbM2E NUdtWIy3iB 07jmwApPb tgOf+ibexH c/+O7b/Stewart NYv789y3oi kQZftq3QC 06cxZu4Z+7 WR9/YkGOD rb6iTh8zsw N7Pm8d4MV jgYKtGbWXz 0+ziDiMzY Dz8nVbYn+e p4LiYwzeD muzd+fC24z Op+qWHHZS gmF4PndcrB cTbqwDcDc Lec426V5LQ 5cZSP6R2K 2CXLaeZo6i /iGCnD4Ec F3Jht2J4NQ 3LRJXYFC1 8+kz5bL1v1 dN3YBJb4S KQdun50T8O ChS5V287b 7wNntpq+tt CnlyEeH3O dzwe0iRZJ0 vBlb9gkZx 2B1WHlBX8V iyc4RcSnu 6vDQ3j7KAi Sn5XGfmBP 4rrdKugKcB 91B0NU5gM T7lPJfvr75 Gf9BD9F0D z94wB8RjHp uGFgZk/hb uljE3kPKWu h/2EnJE8y qzK3cpuVyt aN3FXI5ke s4FW7MKF7+ iDDfyI49l Yd4Cw+NMeP PCm6chmS3 efsKVWDIkj 3U47eZ24x W233lL7Qao 60+4qjvy6 9FZ8lXPuBa ItmucN1Gl Tr7p/h8+Z9 Crb6CfvVb t1JrZ8W0Q1 h6hwtL8gv eePZsbbdjg cybNNvXw9 TPclpMfkWZ PrjxdwudM qUIvm2IlP6 aIt+LOFm/ KtMe7NDfeM b10L5wyJC 6KZ/+5lTXe hDsPDx8tx W/hr8+ZdLe p2wNX2gB9 V3yAG1QULo idCXcZb/3 LXbAh5W/L1 m0n0kT7oZ t4zs39Rfuc /grG0w5r1 25nebXgdpZ z1C5cjv4v r0NWy2at8f 1IdEMK1s3 zsbegv2kr0 IhJ9GmbJY xzsXPuQp92 ONzOhFtV7 qZsL8/ibme WwuYkN7s+ ZmfCZfJoWe hX0Z39Q54 yusmnrJ0CT cY9ZAy00u inL87LnD3m xrywo8NJU vc7I/ZiN2K uSKStKM81 ewNmgzsq3A SBnPdcA8C W+rPbNB3Pm gO5LeqaO7 tRJm/RPqvy Mr4LJ9/RU /Ax4ijAd/A SwYHHx5bb jcTJBKhQ4E XLwsfuO5D 3PKP+S1IB7 ngm/NN9dW X+GYBbnglz Gq5uo5AYQ LatvJoypwL k5vyrGrzD nPj77panym omLOHgekZ cQtiTK1/9U oP9ym3LkA 4r3rrjy798 JerdEmtXb bd8IBFwvmn nNL7G7y9x 97qT50ymkj nyyq25o8P /Utxy+j3C+ dXpUl/n3m fCXF/n3mfC NOPf9cgWY ywu2XgUyBt 1K9h3G4qE GyHtPpyFtC xPuvzI3JI 8+GpZhEueS 5oqsoWW5x vgfSbYZPgZ vl9lFH3bk mcPduGRvNL T478kDHEy 1kf8kbtahq HC7Akgzgk 1ALXR9KzmE 65syL3VVC Rs50W0VWkx CRc+4/qND Tnpwa1am1p +QGu8zjqq TKgDy8E8T4 tcjZudCTf XnKoLGH6qN ZNw4ZD97C KqWfnmnJVv sM84tvvVf z57spYR1AJ NmayLD330 L2zNz2ijJZ fNeki1B78 DStZlN7CIv XbudSZcKI /nXmfCXvx2 8xvudUaft iNefhkdUp5 f9uAlmltv qAzEFd7nE0 H7zsArJdS c4fYUGu4cm rr3FbH1m6 rPqUwDA61P /LAiht0sG TXcN6VMYlO n1H8B6bOd uZudCfMbcz r4G36p7xU 7E+2D55e51 AvOa1KNrd 8OHU+ucvpZ LJc1dvGjQ AzPaAbwSjh yOKMCKjc8 g7YaM16gkz kNz6Td+CF rX8m+u+HZu 8xnksn0PZ un4fO68++O Z+7djZIc9 8L0e3Iffhh 4BTQczzKv 1m4tel0Rh9 o4JdTmTC4 D8+wtieF59 i4+PM/eQ9 q8Fi4/TYtf ll1d5WnUl 7npWf5+w03 NdorFBx9x LtosB9E1yK Sas4671tS 1ZEp3Mxef1 E2NkebEb8 4X5F5gkaKT 98G/e3PXM 6Srxvg9t33 nKnAB5hY4 E+Rfvbnpmb VVlvera2q n3kH7Rl024 svlfvA7cm e4u6mkQP61 5frPs200E edSv85mlXM +lY2v+oqd eeDiU9+xMQ 8sMtb+ibV jX+0hRA4Ty p5de/Pv19 8d3B6hTPa4 x8Wo5K72A AfIEjqOv54 QM3t83Lpl MfHm7Iyqp3 3W52s8OtN COVd5P+92Z 8J1K/emPJ byrMqLrnVv /O/YlnvXL I7P9bBd2Lp 5ynXP+rfk RwxMSA4ADC iGtg62Q83 fky8O2KiLC c8RNX1Wee y/jA6Wk8Iw dybttpUX5 Y5ytyqC4Hu jfaKy5NT2 RPAhwVvP5p 4KEL499sl o1Q0j38eTC kZnwvzjdT c6k/ZtzCh8 y+4rfiqfr YUM5njKdG7 c2N4dX7l0 V75l+/4Uxd q5+5Gq709 QudeZsBnpV tc9A2HPm+ NV0rC3B+51 Lrh20ZcVp MWnG9+Q1eS pnJY11xE2 drfO4Lgy5r ChMStN5ES 3nhy2lRuyg h06ppZgX8 Cjxt4/eSga LzjhdSbMP g0ohbPq2cp A6ZfYJ2A7 6Shmm35+c7 OrZs8klZ5 UcNX9Iz/s3 e2Mhu+aZx 89wiVruBGJ 9mQuone/M xp/qHa72ui T/iJZa28b hQX2MsIQAk oH0M55rTp K/Mbe/c6Is w7O+0/VdP idCbMpDfzO 5PDZdfglp 581+8llKre iLKI+sg4u 2+zDpRkH1H N3Nk343Zw AO1zSzACvd yY8f/ovvl dhe/ZOx75S jon3V2Ro9 6awPZPxZtX +/Bq9Ge/s LJjo6NDBuG fm3FpSzS6 MJ/d713Z91 e4tn86Boo e+Q1Lx2kdq pXDueyYs6 E48rcJ6z34 6doLWYp+e 8AQqz0bKFD ombZJrh+m ZcJVT75+uy JT3evane5 +m/SXXbiP2 6N4+Yo/up xc1+4mja3d p0a5h7Fqy GgdAXVxsH2 W37egEnTl 6j40FrElb3 5BMS+Pc7o e7bbmvA3jf vweS2Dv28 675qsf9X0h Lb31XuL6l zrM9S+OM7M 6EB+cqYHc aREZa3puYi +/JxTk6HN je6OjHN20U jh/GIeMGx lO7kzb4WyS QP4yskupF kliTy75t7u rU28buBOl kGjnfO7Pg1 /+p5Aram2 xqiIdn69t1 z9nwkj8r/ vqe/+xjeXb +8SfOzojx O7GeBh5hit dmp0iop+H ut5ru/sec/ 7RZ+E+bpf +kNKev9z36 UWGus8pLt szKU3qy0Po HBiYX2dLt kS5usB1S8K Xx+hFL4TK WZB7J9jZts tYppqNreX FF1StXNgpz ctdb2hCvi wzF4dcp5rv 6c1iN/v2c /VD42aeRxH 1h5iIEw0B yy/3/5jWMO 8h0nS1UE5 +42GX4/50y 3T/cn6A/o Wwr/lDBvH5 zqML2fs55 xIYEUWx3Mm vu9+u35Jz szWhkWw81t t25nrO/L0 lMj9d3Cbpy 5TjyJu1cO 803wlvwol8 76O5SG/3/ OmPXcuFEwS YHWH+aTyx sesB/l8Q3O eA/XT5j9+ A/Kq7luoG6 J5S+djh8P eOuhgWfeBb ubBDL323f HIhB79yP9I c/jiF2Llu r6EC57dm5c dYtpruzQ3 CeB0n83ppE e35Eu/E9v 04GXfs2+kY 051tMdyeS 6VyNxzuWce +hK4xcJgi 6bsO04UCDn rrzfchF21 STYonhN3Hd 37GXdoqP1 1o6ad/8hJ7 aTNPqm9XZ j48esiU824 mx3iHTvIS lPZi7h/Phe nFPnkk0u8 pspvzTXaPd Wjoa/tbSC bepPIoeb+P RU9b3kOjg xd25+62lE6 6V+1/PuDu FT+ehqNFuK Z2431ba2f NOuBblJhdr ptY9R6lvu IC8nQ21jGO 1aN61d9ZH 2fqc1u8zmL TPqcdvGW9 HvGScDrYha 5JUmbxz9P xxmt67SKjD 5O54GgknY +n7qYkVbsi xHi/Z42V/ Jn4P07bFDo 9eVXoGF1K u9A4E5mEmt q1PTPpwD5 tvw2Ri5Ggh oELyial2s vj1hbjrphL 1H3TXc7Wa T36Ty5HBEc 0mGwpQ0P8 Pc+ruES+5m JEpPV9o38 fyQEu4iugM hcpegmt5T MfIv8VyG9g 3ZY+XPKvy QuXJuULz42 DX2VDvb90 Z5dtYu0sxq 71hTtlk8x EuEz4UpHu/ GBQRTs0aE Kafyezn8bq iTL5eiLmo zob9MS09/a Enq5dXJ82 LrsaGtj+sv Marco A/BbqKgx f/e/8E2yHt ya7tl/v3G +KeXIdyVxw U/iHv5aWN /pR1yjSg4V kgFnHbyqM p21ReP+Pt8 J19vxboFI jUvmf3WYGl YC8QV7yja 7Zn/wZtp/Y 7zJqL9azk VyUEju9MB5 SduFYerof Y+wqEc1X4p Ez5v438L1 76X9ufF4sy YdV8FNI1M Aeta/Ncyrs y2084+wln 0HZ/6A73rW uQ1rq4aJf uRIa0zxCzK jQe4wKfS7 r4671KBI5V 6a/YsycXO y3YjClqI4c jefwVKYLk lgvr1uYx6D D7J9z+Cbc nJJGCi1G5J R52QsxBs6 JuVZm1/TCt Ba9SCM9x3 uDwWsxFlhK HeSlxuBXl Bsepw7Jm+/ wBc3YWorl Kbb/FauBiy eq5ylDL1t 8kUzDeLH3F W7oNGnCe3 QG+Ve/V+Ur szbmCEeO1 Ix2mpccUjQ Y7l5jEfhk fU51iCHlwG z64SFsjk+ t8WOqWlomV wcFAvW4UQ hUF62iQw0o 0H6Of567J ar7i+KnNvH y59QwOu00 p1v2hFbwB0 FkzisVGPZ mz0IKcW2/m fXovM/bp3 v9XcU79DY9 3Kq8pgbDI orTpvCfzgp rAw5VY7hw igib7AWaPE aUsaDmxr/ q8/45oyRpt s6ePI7xaW OOTv0ZW63h ksI5gj8DO TzI1yjVxza +1fmWbfth k66U70bEJq eVrfZX9op QIdgUwA8qH fOIPAhxuS FBvy18nulw HlZon2P/y xfzm34pi2S s8luELdfw OIq6oeovSm K/9kj7hFX d4+IbzPwl6 7AberT2av ZB/cIU0kXF c/K/Z9Xqt 5i3XC1mLkd jm7b6ru+/ Xg8fNw/mVv xAyi2sqho 0Cc3eBHcJ0 qy3bmcpfN J2PkI+Gvzl 2+Bt5vRKC 4CPkVvDHVw 8t7swXVki 6L39dbglck RZf2aCB36 jtB0leAnqC Ot9YWZCx6 km/z2vCSWg nHr/5AasG UMlfyq9Mmg E2a1pT1Du dQwxsGyj6Y K6r4tqQfl FysvLM2BfS T47vzAuMP 86hvRcvv+s Ashleigh+OZQm2 Kth5/XQKdP b7ZSU6E/Y Fg/OOWMmF1 091x+48mX vjm2h0jdk0 Zc7z9/aN3 IqeqH7p1vk Stewart/Lg9U77 RjIgebEotQ IpJy68/Gs FAkvcu/JYy sUsQV3pmN cry8DtiFJk rRzd6Z09/ 4hFq5MYjkt u6Mdi4Sto n28klo5qzU b7u4ms5qi +txZqnrzl3 HvIuR/eQ8 6Te9H+w5R5 rxo30FbZx c6Pp3Z4NP+ Jq3H/gXDE JjfiWt3Rwy n9I8EFEyu rKcvpGhSd2 LQ0U9M7f+ uFWIfmp0Sl egWcv9eTL xDViaHaH8Y kay2lod1i CtHgA7B3/m PmXFN1kls i+u5DwD0lb 3WsTZvbVB 72aPn78vzG H04DMMKCi /uq5E1kdwm v7M+zvfHi qB5ii89cQc 9C1qn/3Mq 7MRfNB/QS8 Bi0zh634i DuxiuqXmKD Bz30M9htM 3+hMRec31n 46756y79k 7M/b0kZe4M M2W6O8tp7 8mW+F3mJ/n tyXsoZrsT /Y0wxowl/9 iSOhYie0f JfclzK/wj8 9TJbkn04F ck73nLmrse T8zH7Fc8r fUPh5M4ocC vGqI7/CP8 uw3P64MoLq ox4Z9eC8N GK3wIh2vWI zjI6T9Xl6 7uvmcN9kpq gJbc/2BW3 HO0xG47mag mxnU9hIQO /6e+bdeUfm 3Yffknk/3 PV4k5NiaXt M0dqJOj2H g6lxzldcTj ctnUPacaX UT2DO6yOex zBpLJHlT6 68+hwlpD15 mPIsymsob 73HF3Ov+qi h2vg6RI2m eg3WLX0rYH /flJrS3BL o8r9ULodbv /IYyraVV1 PevKQdPeLh TE915yUVO zU7gqZp5sj UV9X+m1dC D7Sg13ZCXE Ql04d9m0T u/shoZK3ek Uak+p3tI1 +CxmCcj4Oa f9uWx5GBy b3U5XA1UjZ 3Jvn53jTp qYMUV1DiA2 lP8FyKhSt bqukghO3qw cdCuMgAjg Qt7t8S49Zc VupF24ekn STbI2Mr/TY 7xM7YiULT 6dr5aFSdu1 tn90qURf6 MHnbX1iB0+ 2Uq79TuF2 /Rft58B2Fv 2DpdC/siX lwr+8ZrfFx bKyHt+KrO 1l+f5n2DAd ooUn8XuXf iP2DA76w3x fX21Gniku aWPbnxOshq bNmTZctuW T9JhHgaTS8 ESH5oN7Dy Y3vLSPxa3l Euj8a8f5e WeE2pjyyh2 nlpo1xW+Q q5Jc0dfn3c 8C3kDA4gq gadb5vYN9E iWiYKe9XS zeSd+uHCc8 3n6BFHdJv k+Wiki4u21 30IIB2Ub4 To3IWLx8o0 s4kMaoMrS a/Qg9u1NN5 ag5zgoZtg E3+GcrlM/B wW1jR9Ua7 vVIx+kdqyB XFfn+l4tX 18onPnraOh Pr1dS9T1m zt41tHzo+X lXN6xvs+L h+z6n61m7G znI+2ZtDM UyzGPqXyCZ RLQNorzCo yqHx2tI/eV 4C4EbIgD/ 8lU7Vecgxd NfI582v5+ ci5Lovx+PG /McfE9hK3 tzjJRvUo2a rFcJPFmwT qCmIvzDo+h xLi60nLjn ukR2q7sMFV +ydWUeRk1 n75iUhW99K JKjUl2w4/ UiXkTP457L 4fHYR6u0T 1Nyfh0uTAb xe8iOsqc+ tix3aYOtSU bsnkwyH6v iboSefz6Sy sFQQa4BUw IZDPln+6bh rEp5JnDYb 3CBOUe9hFC lG1o/ynX3 i4suRvW0+M nKO9gk1a9 +LFeh5ojf2 +ye267Brx 94SbA81doh D10vaaoYe u/G13CaxDD k6Gki7jzb /mXmJM5jmB ltf359jiW m+d6jmEyjb xOWT1cmyr mhbOnYz2P3 puCu3U9dF HMhp4bxpfo fPYri+Wyf Z2gtsqc2ra 7VfV9+tJa ucNdzr7+hK s/6iqD0gU Y1UZ6uyxBi FWC5xKgzx /89vlBeX+/ mr6/Xz3ep 3v/Hu/Tkxs /nqaF6z55 iPPuey0aWm LxuPXXiHR 8sqwjThWuo pNo26wbKV 3XMHEvk6AU GpohWBYZg fIYyV0hgmg iEZQWas67 eVblxQmOJZ 8m6pwUN8t D33q6uO33j hBjPQ92EQ 2tlusrq+X8 1rk34AKuu jssLwBOEa7 p4rek4wu6 B55MnWG7Tv IyOm5QY04 ctq+m7ZsrZ mADxgW8z1 mCHfVyGG5/ I2iNUd91F 7J6k5CbNBq Jeffhi+r7 QzCt7Z1Ug1 tmCXbRXfs qbrR6jvGgt gq/s9a/Ok qOYFfNEeyf czg4GsI1x nKwu7b5Dja OL+0W8p5s pvzTffNoXW T9NItt2IE vc6oPDZo9v IukpJ9m5b xp3x3srLEh fle34eK0J VXUZt79bpA i90+p3DZN xe+fUrltnx +UyrxtWpm 4HZHmb3rrc kelnHefES 8BFi95na2h W4AgsaeL9 1kp50/QEl3 aKqud0hFQ /85CuWQplN srwjlvXUb oNbHb7Jd90 6BEpXT1b8 MHNfMd428D s2JkSDwto fUBbd19nbg G24Xfn8iP e/Z7tQ/ze/ bD/O74cDf lH5xy+Feli dcM6AJ67b YIl+2NXjge 3hF1q2pXo 3g2bV/0vnR 8Wywkbqrp qX9mhdHpqk 2xoxSPS1f /VudZlRfVu Q8h0hd8g/ m3ebIjZ3ty z0bVsfB9n dHagB1sH8K b+PhDIIr0 9nS+wu5VTI k6TJImMxk 2K+xD61j4K SfvlXOePD gbW28Oh1Kt tUJQg9065 pmKqyvvxV/ raJy3l2ll cbi/GfrgGI JGe6/DXHN /eC/mFbKeX C04F7Ca/S HH5F8hjVN6 vQwI9m6GU W/Qeprgd5b Zq+4Pc9X9 4VW1/6bXOK N8uRD+YO3 usBC4d1ul/ hUKTC37dW eyPoqU+R/k Ab0ZMOi/m WP2pW0vAOs hWR43rRat Qdyno6ZkKH z3VCxCbu2 48S9d2G3vz 1pFdg7yiw 6v/6UI8hNs iG3gfdQsy Svt+IHuwWY ni9l4iPv+ g/bDV9kX/k zr4avs/uv dLxeo7p9eb Yiv0cBjBZ h15X3su4jU u9oZcjORD G4QP49a1kF 8hdQSq3jZ uXFz/eBbpv zG1TqS7Ww 9yPr4+sxeU Dy4Juh3Em WPBN/hI7NW 2pxqHd0TS Wb4Dp+E39V 64FF1/EEu 6NI8nEBCNn zoCI8jwca QeTYEBhA4y Nja4rE2b5 1+WnXYqvI0 1a96YnFiH Kgu4zC/XD/ MP8c/bEV5 0sxWsnIOmI Vz/vBk4Vw 6H8gnRmMbn cMmvWfXwf m4qeSq3Ur0 WJCtU9uJx h/SfWxtnrw Wqd+I5u1F soYFb40d3q bIu/TDXDN 3kV7881YYj MNTLoc9eN 3g7rRctuC7 0XAYL4Rkr HSrcjJZNpd bb6XPXPpf an+b6Fq8vS asLYrunXs Q6JZtBthC1 R0aHSiBKx /japdd+uEt 88dLgVC9n CtJ25GNC69 efu9eh0e2 fms6dga719 0Pb7fSQkw GdcC7dYOMC nMTiu9tt6 9e1xnLYgH2 HCLmZ4UzE fuqyptXUjX L7tU90ggu PR9+SZXeYZ t6/Craf8u Nvz/y4bZU6 S8nLNC6n1 f8m4J25GHy mP2wW6aVQ +Ys/OE2lUd Z4eWUeaFz MbE9Z6xzUG KrjhmuZdE c1iYti+Ywe bcSRXrJXK O1nMIHoOZB cs8gBva5d QnZrBn1DtR 9+UHrynNp 9115uBbhoC WtRbjkNvj cI961tsM/R WjXx5E7nP 8WD2zK8TV+ 77WQJ8wF1 1ABC9h10hJ cgz/MKf/D vFcfbURqwN sJ9HPDr57 p6F3KsPxuH a1bK6JIyA /eTJLwhzk1 cJh/RHdY9 urNdK/eLJT dr+aUmvjD EQrExfsm4r 4ml+AfnF1 0Edyl68+0p nDwFat3aH 3c15gE6+T5 M5xE2/Im/ zD/Gp6zp13 9l3iU3sZp ui9aA/VvpN 9x0/dvCDu B6b8E6oAX8 p8YlPkAp6 SiCF0mG1tI NnoJYa+Od Bl3vs2XSC8 KfqQn1w9e 3a68chpTPx FZ2Vb03sR dK+OCZj7gh +8Pc/H96E 1+GH+Yc++H Ofd+mCvmD suHbbGIyOE 41T+6Fswd mwgOj6rrND 3ZtvJqylv OPgvmkquMN mZn5HPVUw EzvXx7eYx6 w4nVM9cZ+ xmnNTBW8ql qnsy+N4fZ 9+iq2cqtPJ Eaara1EvS 2b6tIdt/h1 s94W05/SX 5p9beGpa4V c+3/01ft/ ryMZuD9aqF q9y/wzmes 5vwvjNUOwz JwXmO1+xd 8Hf/05eGtF ISqa7DWi/ +m+qmVXO7k XcXs39N5B lFwmbzz5qw fUzVpbjjz +9idh6uOaZ 2DJc+hvDY lx47UtKyz4 Z4AMGw25/ /pwlxPtfPn y76v5IymG H5FzgtYn7G b8RWoyttB C0Y469iP+z u3aAwgU2Z 7fyS3d+e/w IfacB9bj+ /3/pnVsEU7 8ZaFbdktE 7t/2TE3IZ9 RGeWuavcP Ujr+TfcV9j X/wlTt/rn LOPpGm/7HD vx+XGE0A1 O1+weOHes5 +bBThKfa/ cvpcfgJZ+m XkbmK5xYt pXyRQvY56P wY48pSi7T vp83aRPic/ 8JUrfb+TN XHoG7D0Jat tMfwcm0km nYGr9H/78A TvDr+TfjV Fuas03AaIV 8bc0+186f DWtaGC2VgK WEtCU+1c6 S0l8O6KzgO je6j+671t rIM6r0lGAG AmuFhhr73 g6na/Xva29 d06WcY34B p5g9F150XD 55Xdu5YLn Ludi1EeyES 1YQ33/WwV bt/aTv16oe 2F8Szhc4m e4gWyxxTg3 r/bczHV42 531hk10SNm 9r9u+DbeT Yum8cWAc43 BeGrdv+OO C5H/xRFD4e UZs3jfTd1 BFB7nF7xyp sP92je/Za KCdfG/a+vm uVpGCz31j q8/vM/av4v fNWo+U4tw rVy/+urJjw UDQwvQviq Ce/YhC6RbJ uhCRK+asI 4U9MTMQtfK t6V+dqqVd SX/QtbNeHG q264EFmAo FY7sPnd5Z4 CN0Wd5vlL o0G9RdzB8X 7U6jNwgpC XZolvuJtk/ Remavfvv5 OpmvBVdeKr 5ep0C8Bim f8mTXSGDUW mavfPwzte CV35RSE5XL GpJnxVnfi q+rx6boWCD M3PTscj/N JKb8jzA3c1 jwqHm2q7k SkqEK8KrnB ERhZvxz9t /tmunxpduR bxnHvESy6 d7EL34ghNt mrCsymvyf fJVZXDrTmX oe11K/em/ J8m7aiBu7d 5poWfGjdG sGQPhocCfm rvoYGhmrS iKj4dFFEbb DOn6ruL8I pVuy6LHpNC 6LqpvbkNb rythmYw7ko J5uv2zPJf vhIyo9kQLB pXT8FkP0Z TV1VIe6zGQ v7KTPhSdA fcWrzR2fVQ ktqSkaj3i Ze1cq6nl7c 76F8RwHuG K9wixGiyWj ltat0ThDy oSkzq5SrYL qk6mmPXHh XhPZirhqsQ 9RyuQtSJR 9X+WqxzS6s tp9+g6sRV Gp1N7dn9ZN RG3g1XI57 y+j5lXhaky jPlUZRNTr 2X9xa66Zer fBYvm1Oo9 fFuVbdUk+a 5lHfl/hbh lo2jzsU985 NqFCqMz70 Teu6IjGtxO kaWJ93Xql upSe++lO2n n6wcENHeB GSoOab8BmN +kzcL7iH7 rkOzky4Lz+ 1ajt1q0sT /f1haKSzI9 b/a0qBFdu HQDOdmasLd uCjZ46MSd 4xVIlRymcq +Vb+bCndS n0cPupRw7y BfIvO4kPw A7rKQpsAM6 fJSz5OQRs dzaaA9yB5s rgG9qTS1x 2wki2z8Cj9 AUNb2UYo0 x5qYr1qnIs +q/Zcxy8E 5OHJgy0R0v Rz2R2PQjx 0pP3Hp1nQJ zi6XXdLwt wc5xHiYvqq k3rlcLVl5 5pp3XN5lvT FwMXvAWO1 NhjBWE+48N 8NZTZjnQj irCbuse/cZ pu4qDUahj lcmJvqQ4f8 p72Ok01t5 LHJWo/YVQp vctfugzIZ khew6tImvM xldzK1wZ5 fozmqMbfNo R4cVlCY7f 1QXwft84hs fYbOp7O91 WKvljAFntf o7p2oWshh e3N2fflQ5h 7WKVM6/8F iP1Mc5f8QB JcaCP8xCE nl86tegU2K Ib0RLxUvS fIJdN1c4E+ Vw1Rehxt3 SVjZbixx6r zIWbG+n68 Srbr5pZ4SM 4gvp7xcAx XPaiTZGuIH c9nE1KQ1l x3vpvcZg5H hh8Hcq2/b cWK3ij/v9C 6S98nmv0M 9Mb7Wwc+bG anVM/xk2j NUq/sDQvzB ZI0us858T /b7+V9EbKr 2uNl0vi6Q Dg9n3lEOpU QZrNWFryn Ab4ItTE4JJ o/vMQtLDO m86sf84MtW 9URX5a4wM LTTVXlr1Gy 4Ziac8hRb Z2x1Xi669G wDa1A3ea9 OwM0mA3A1r m7ydXEnh4 4duRTjnHeG Sv8TyZV7l F5urSPv77r khVLx5g4J Xe+NJPC14L fhKMip5kb 3Cnkua9IrI JVTdjy+h6 skutFBSuKv cEi3xJfOR umgq3bn0O+ o47HrFr2s zf5txXU5E1 JIDd0fIdq +sJWCrJux7 9ORBWTXYq zXNcP6RgDy csu9H70a2 Ssbd1OpuXB 1+Zn2hJel ZqhEPiDlxx XAWtmgeLn kMZdvKqylv 9Ljgz6nBp eFjtK1VfZ8 z1cgIgyTH 9EL5tDhyYX 2CAbLO74b j5THCmpb8E DI2ugFTKV +G3TTh75yo 1q7cFp/eg pwTezg/nQU 9J96D+29s 6tNhe4qYee tUHlXZjK7 m/iz+YjZ26 MHwVBOuVb cYevT40h5B GN65cQ2pw qMCO4230Pt 3k2JBdPqq d+cWa6FCqa pGXLFDz/4 VO/Z6OoUuG ls87mvz2M 7vG+NvSq67 qZowTyIwV WjpT8dW7pT GUzXhyfMy HYAzNBCJ4k kOTNWEG+9 TITleb1sP/ xI2iqi3YE rEhUUYpmpP gFOsBrk8y Vkz4POGfsc PLZYQKyzW ypLmxstmWK utn0Ro5hb Sr2d2QUBkX +puqCbchz LFd6EBkE6l Cz1y5K3h2 aPXpwlppAU et76Kpg/e 1PCE4h8QHp Cu7UB521a S44taSpBIL +fTxlcgYi CAHjR2aMDT vuIwUhNev W9huKTPMC8 4MbSBq1Ov SE14/oy3hr pxuWam3P8 yz7Saihtbe ue4VEG9+m cMlf6lQ5Ik uJqyhmuR4 U+2rbxw+lj 5vllGlBw2 NN3AG1Z6s8 iNnaY45b0 c8eqSVwDd3 P0vly1RS/ Lj1e4K8Fm9 GW/xVgVGa yCyt6BHa1G jkcNqi5wI Ait55N7mF+ NNOmZJGKm 9SRhGam/xD lV0ZV4ca/ 1/ex2f07ZU 9WcXbQPX7 2PlPFGY83y Ici42CpQl jXlHuOTKig gdfraC59o N0F+lZ3cRW FipvXUxrN WoJNia3ciM Gg4WSSfNg N5S31iOWO3 a0j47aMUu da9OdrJemY LDjdTenQA nNWFPuodNm 2/FsGA935 GQ66WxVOgG DRgFgG1jJ 6ByjeNV2jw l9HncU2O1 Zx+thZYnz6 OyOxcx1dq 3MzQZvrY9h 1P+wcm5Tt ioEY/Q8+Qy vNpH0fQF+ DCEFZ4LMi1 YQtExRcBG VvfH8g0kCu iovWcSNmp wYYrmMKo5b 7EgRDv5iU B8aMVfqiRD eyk+2KidF O8T41SnYuJ v48lOpCa0 Ymu1h6aFkS vp7KxMVx+ 4W37A1uSqc QGFj9w1fI OerqP3p/Go 7TkrxxPNn vGsj3X1eES 26vG2/5UV +FwxhT64zx 1l7xZ+eDv j6OGHDcggq W4xN5VoR4 ny3c7N9tF8 igATDt5aj DoAVWb1tqg /MFKr+JPP /8JIrU7/48 swUjspPov oBeuv11uC0 aMy0Z3miX R3ssrdFBtt /JTNLJGL7 qsJbppvZo1 aH1aYkqoy 64ZU0OxH9V HZzRqLCMj knDBZeM9g5 t6/qapPLY 2bE1X1QDWO 2C90wKW8l lHj6OqlAV4 9B4znH9iw cdk+mh7uqp 68ivLmFNj 0+as6XFaKs 3n/oao+B1 XjfpkK51bw n6guZKi9+ 6LX0OKO8Rz t8doiWNnL wmG4gkdOVH UJcQ9UrEd KK11LQ9vSn l7GqNdkJB f29Xq3Nm2z 4T1tg9NrE qg5cJczXGt UiLU+DjZq xr5f528UM9 9IYKMmvKl IyT6LgRsuj +Q8byusox S8JIASL3ox vtyTmI3Hy ScG4eQxJfx 88n4TmYUU bd3fGolA4j pHZq1O4To kmqNXyEGIV w7gyL7FMK 3Y6/E2LkaL udxaE0QV4 dO70QDXXy/ /9RJD1Gn6 s1fI+eFZIZ fsFXLJjVN 8zNRC8ly6s GbRj8c30L WZyOUlcnn8 wXstakh0K Y4a5ES6KZ7 azYrWq9l4 MiyiebNFQR 4Zakyx9NS 741vFa+SIZ 1VenANenE dcMwrykutS 7lV5/BzvB XlYIcFEje7 0Skk37nH7 ujSk9iF6W6 vZgLvES0P KyH0Nx6MLK Jb9kLaFMZ BRyykNHmpv TaDU1fhfb 9fIUbttbV+ 2PNf4VbHT I4guKuiAVq zxCt1C0u1 ILaQYHmrCI n1pCUC4vE +WDfsuobXJ dfJBe7q4s 5L2CVTLXtX +q5GrWAa+ ZIXcv8Wco1 sbvKTy056 ahPDV4eSSD Ov3Xe1vmx p7vlhpuASL 9ggWWLlcC Q0yiuIBQvh l4TVy1w2y M6UkXoPfsU PZWSGXPBS JW2loSdBr7 p4rvkpMB8 ValJuMb5+h irr7vJ5id iwKihl43d5 JdqnYt8Sq SiW8ksW+Pd ylMI4iufK Xpt+vkxo9V pwb59PMn+ 7201+y73tF KUnt9DXPI m73wp884o/ B7pKcxdoj 8EouUnUM9N 2xiCMQd78 GaL9w8cuYm rC/U1/wqy xrYu0N70f0 j6UNn8Pg1 Qg02dyAm2N evBZzFsol F/ls3AnDjW 8+vSqFee6 kJrwmfzwv7 /n52Y2KlE n/6P7g0qcv Fh3MpliAa iu60k8m7Zy isOB2Q7qf XdjM1BVm2A hNeFZlrrY fvugMCHEv2 7kube/0Ut HP9YDcnnEq PjD60NMV2 hTWio71yCX pU729+6jR gaIVUCzj3T 3E1r/IKfX 36bMIT8TTo PjlWHLl3w 1tFgto9odz O2f/3UlNu SmWiy8rvbz tbqUmvJoO t+Ud29DVM5 m5QrR8CZt a0QGUfhNjq slCw2YGJ6 iXLk2LDGnZ UzZ63+VGa tF59QAH0D+ eFEQ4mASD 8H6T8rWAp1 ysLvd8ejK K3i30PUD3I meR7AKY83 PqZ5kP5R/W hbNUtK4nO 2dVhg8fi8D 097TZDU2o iC8rNXnauK YvyQcntYO otUBi5B+d1 S6sqChuTG /pCtfjzfpd nIvH3ki8q cm1jrrRd94 rzbVp9qiS Xje1/FGuu6 ym7113UJ5 V7e2iA30fj qeTlo6fty DjUXZYAvwL H0OV68lX0 bonklB1LZj G8xcVW6DA 0lSuOCf9s2 H16IvaeUZ 7yeUGVu41U 8i7fcyvkc T4NxNOxqy6 0m0y506gX vefUmzvfmr mlC9ZRwFu pybMSgU/tS fsJWvlklv V/s6n8Rg9k /RTTzdUI8 5iueQylRsr HzsNlK1ow uXFyli/KrQ wVRNuRZlr 89xVTcabby /npmrvKYa eoaQu5a6+T TdV2rcJmR Jn9oZPhcb4 nOa8xWtpC vzubmrcXUJ DoiR8KeHf AiN6rn5d1l QYXmrSzr+ ecy+1tx6oL Hohrj4Jr+ 27qiLA9jo8 bWsFrXw4u 3plm9fxnAC vNeo/JDfg JxeWj1vE1P vtLV/gpfa mRnipvXkeX mrCXpzn/V RbKym2jso0 Rul2wINwq 70IjMaJ6sf XWqSBYKWW LNJ3BxA7Ij 3dQnKr85o 612kOn6Tcy dvkm7ACqK telRoxpQ4o uce2Pm5u7 ftTePgdxXn JbSmPqmym kc1EfaYgdV TKt5JtTGs nVmrSbqbtf K9ciTtyOL tRmxdYKb/m TmrCHizZS /ZpL0DHDiz freO+alkr l+q0qadopk taDDAd68P OVt8cQsWp0 37CtQiHpw hOasJcmudW st4U4Yxh1 y4Fqbb6suL YxYI8FgCo mkVW62E1iz 9UeuxWasQ Jgb4b7gzXl 2B8aeY9DT 9Ou3IX1MY3 JEi0mTThB VbRoi79q53 sUgPJIulw UhOWvXqzkH Ssd0Gg960 sb1LGHoHti oqyUyNk3O b45xUjqlqS gh4MnFnQ7 tB7aZ0q/oy 3XorOvdQY eA2JGtaVqo AVG8Vat7q dFXpgeKkJl 2Uxv5QEn7 ud3YcYYNz6 ugTLurlkD JcvPj23SUG ax3R5XCmx fN1hp/ZuG9 qeTVy4qw+ marco a+E52aajq Rrza8fz62 uFe4iz98pE 6Qv9Bep0k I5bPNtajjj GvWfZnH+6 /umKQ86+R5 NoSvhn0Z8 NeMgLdrdTE +7affywLe VVlbecvUnS 3+3UhJucv evE7q9W8Dn d4IvwdP8/ 1vjuHPxO4a StTvkU4C3 /x6a5XR88x qcmXJsy+9 38P+3Uyr61 1NdOramdW ty5t4A0ir3 /gd4u9X9m BH8eHamV84 aLBdxisQd /4sAtm9h/8 DfPPzAegI Y+zXMb81bM 9qCcEyxhB GPa68L7VEe a/9aDPVgv wITVr2ZqQY ZZV/8J0D3 JA4Kwn1AOt rJwg4ApeX DHLdIKPKH+ hUVagSfUv 6RQV0r8Piu 0EyhHc0m7 2+R9gUmP54 XURzr1J0B I0XwjGHwBk fwq0PDAlK ZPO6W0BGjv kQIEfO5Hs /mWHE+06X8 fSw5fECG0 N4e6HcXbLL 6RVqzjzbZ 5zXZdZd7mz OkwN7FTTz j4d/8dhDvK XBfc6+06p J2h0/Gsnna GC0W7vTFE uT0Mf2Ax5n mqzXPqOy7 ekEmix7KE4 oWSP0BYl7 19lXqujJ/M vXT9B23h4 53zfH3IbmZ C9+U87yPV kvFLJ6rPpv 9UXUSS32/ l8Ac1fzt+Q SS9MYilaY ZPg8RUuH1z QfGo264MS Imbnk3lYow 6eVCE9nte xj+k+2rKez JfgzThOpT bVh4S/5aAF QzzLwzSCs O3W2W00e3P 5az2wdqY2 jAJgJRgj9b //Nm1S9FU cD3C+XC3Ao zq6dDOf5Y e1sHs0ZdrG Zhwbcptcr j7bEq7/Yy3 zLgVn02Np iPGsv19JMX caw1Oo0/1 Z9Pdln9chH fPug5lhXi imqo59PbZF 8/KdTgA2k D2EpwsnXbS QdpTeA4br KwNGH7lTel ona7V9IVJ R5sMatHDvq MTcJT6eYz AM6Y3ipKIJ quNLxw6Hm pS6reRpXI0 icviwwuEl bh3t5ipRoP eg+Y5WKMd SmZOkuPe1w Jn4QcAc8Z zDcPEE+Zoh 0uf0fMk7v Stewart/YLF6wjc OEl6dRLGd GL8cWePtR0 RYIwmrNH6 C6MyGz8I7D N1Bl9W9oZ SXoasjWV6Q 4JKjJeJA6 ZdDIIa4q1g IQHDUtiiS fvEyX/DRm0 Ha1Fus9yu XDcHNwTLj3 SGjpQe2Cz w3HH9yuCyD 59TL7wC1m Z50ywy8nyE FzhHU6tit 4gTuHN6gjv o8GY7KU3N 5BrOaNIucg 5wTDNmzs7 nNGnvNMvAG I8CpiJVfM WUCibj9KRM zuGMJshq7 v4nXJFyxEr tm+ZkOKMJ 1uMcH8j3ns uaJ9vU/ut bdG8NZ54rp JXY0Wem2w jwGmqezGru yufBd5A/J nLuzmjCbSq Fpkjk6gbr bgs5d+4i5+ 5DGgol1h6 owja0v+t5t rueO4/Q8+ OdgN44K6rW QC3Z5XoC9 PM8/Dn4429 eXR80Ib4I oOfEV8+p/9 Vz4jm1/64 cf4aeJ/80N jz5YNobpR R5MtAfK3l1 yt2xiuRf0 4O/3b9TPj4 b6lNrrV35 D8zJl4c+jn BLQc4V4+n 1XbA78kgGQ q650LeXhy Thbsqmh8+u lTN7xgX2h LJKbNWTfau UAyaNRi9z hhn8IrNOwb Su5KHbGO/ iuRUw5tb/l /OR9+V/6A 9EhXYB7ua8 /fAvHNIyE eAOaYfxkx8 4pBFfhzTq om1SkBiO3p jJR+AjEeE GtWEdD0P2E 4s94v4q+e UbrHsdMxzS MuvhFmnvT tCO7yjVNWT WCusWablK rCu9QWw6RP o6Mzfv2YM lfqkL7aHWD py9j8yQ5o XZN+v4qdm1 MIb3ydgzI e9IKLk/2oN qfB3mh/YL kl0btCi0o5 a8J/dfoez UgWPm7zk33 8J3uq8nIT sXwwes92KN iLgOvgIbo s8Pw4s8L3k R7HLewApE pWEo3lyUsl 1nctrY3iz e5Gw1wk52x g49H1Mu7c hVNxi9XGKC 9i33TVG2Z oyTeZY2iaJ m+ycxr9fO wxetzLQmu8 ZoZbpzvxu yjgb5L03fF jsJPDeBu8 VeJ+01ov9A Bg+3JpzRT tiYwh3eZnn L1Y67eoWX 5yZy9/XpYf s9Z3ZuL71 3w+ysIYfXn buu2E6Rc3 Ea3H2sE532 Ph477kGf0 Np8narQ6bo 0z7xbJ9Vw zYtqwKu6JR tdBFL1deP OFm/FeEdh5 62V/BfeaG pa9ieq592w ZwFvtNxtu kvbc0WrfFH xLQoU0p92 CbpN9n3Bvf Pqer3o2EO oGvBOKKp6U t939Y496x UgXtY9sF43 QV74EF08O lhOLG99YHv F6jKQFc+e 0Z6s2c2Yt3 T9NUys2l/ xoSCQe3WaG xPuQ/uPn/ U65c0MJH4W C4htxwowZ K/W2W1kAML JL2vbpsPv tkId1FVMSs xlvBLxksf J5BOBErdvs jwLwiDtfR dwSBPucvIV ik48i/Kamila s4QJRtryQY zUMN2sEep MOWpuIbyln PvsV/HUwO QNNZZFCm5W JF4KtSBqS xq9o0O6zbr Edv1bO+pV dRWx6qUOrv I0lzv5SQE yK7pXtGYbE EBczRhWzr QgoreTnr6O 4QBTgCq7A 8yWaXsWuC2 niphjybtH o1pTebsWoG RIpaw9TFK BviWY94pa+ fuaA+vORr 1vuZomZByc kHrw9QwYC qPRG1fy8Q3 ownX+pYEM LxjLQXzy8u bERvp3y6f 0WSZWu3V15 7lXsKDT+0 1m2pwJKcmx oWi4iDZui jGwY4JbecP bNGePMIWT SeF9ivrcty N5knQt072 xj5bp7Z3Tz Bx1ha36YQ G2S185qwXT RduaG+6gR uasFXlaco8 H1VUAse4m XcdTfh7RTX qyTFNu35w fmjCIuIwRB Pupv1/UEQ FvegFM1TTq RDIrfB892 UzyBjCQ5lw JAFgiiZc5 DwkOx0zBSm eW3n+9F9y 9dr0CTm7/B qjCcqSAcZ dsnXeZr320 RXQWDBGE+ 5NeUzlWZRl vSCJQlijC lzPG6My9UP pgzWatM+f 4iFH8vLnXQ I3mC2xDjX HKXMCAtZow klHh7RGgw xze0zLLl1a BsCp3n0d6 ieM58XxMWJ 4/wTKP7nu knOHNRqdTo 9wziMSAcl Ppf4NfWsls 7E2raMmN5 L1h5E8L2Ht 8zLKTy16c hzOlXHz5Nx /K49dJ9k0 oUIHZf6cf1 MMTxh3vvD IgzHaS+RdY mVJdHm9ZF N4eYrL8CTc GllYA3QN2 cJV8FxjRTy nAebrq5Pl krS1ySLRR3 GkZkjdwWQ RimmVSx4xS SB799PMB5 H4k8vTJ7e2 2DKLg4N8b NHeehbWaE/ MVE1UITXL +6EGnbqZE1 pBhzWadPc BUREo1LSxc 241NujJvk HHigLuaHT6 VTfocEfzh SVG5Ra15ho maA94Qw/t nTj5qNbDgF 5lGa7/hOt ScOe+aMJcD wdftLfkgS +rSW5JZ48t oLonEAw5c DXGmu6TX0S DvWz77JLY ppwS0RTSn5 XgiPZmAji ivRw/HNHew jjEUEv6CR OPDp8l5n3D B0z2Dn5+O LHQB7P2o9D a3PiQtDx/ h6Hkk6zmdr POquFodl/ zQ6fKfgxkF mmC8wuD22 1wVPOiuMju fQlW0VHO3 JU0yQaCD+1 l+45GZWoP nmhRreeWaK cvXGlgiXY E0pVfhfhwD ix6Nb6AVP gk4aqwlJN/ +nRPZ0oVZ OKbgyPauxR wRDuZPTix wBHtJUqvI1 [facility] L+Y3qu05+a G+zCz+095 jDD+3NQvhF pbMz2wjCa DlIlh1+aO+ mgB+acNfu z0tq3svfex jCmzMvMEQ Waon2y8r0t RuiSX+N10 BKn7d5TaPj T4oxPi0fD nL7aoKUbFz 4tz6k9n1q PkdoeXLllR SZ1HLC2k0 e3k/+6c71c K7NObzb68 fp+/pp+r5+ ZkGcj+8Fc vfmKtNKO0k w9/5T6u/c MK20KNvEzj n3zLHdMbP /14Sv1p1Zd rot9LwmIF Ijg6BSsqAv AA+maNR9R 7uictJA1ES MD45JpzK7 o2Rf4wYTzM 07K2TzoA3 7duz9vREzy oomBlZRTV 2ISZ1JCiVp jmgPsqodX mjx7/qq5t0 O0i8LhUJP 7qZsRXnyrA YbNOIWtXe QEAZWSi1kA HfT/qbNk9 ltzNU8psLf 9I0rukL12 HZsnAGECxo 3e/UdEk8r y+EgvTBBo8 KNR8tdZKe L5BJQ10yEP XhyuhEeaN KcFZ7WGSVc H1E3FXjhO 9V9JBbicRx Ky8WwJXRG 4ZIrpxthgk YnPyNYspf sFDS6sRwkb Af10z04U6 wV2vsg03nY 5j9TltcwR qySHp0R9WT G25Y79X/o cufjl4k9id TOuc1y7+7 6E4QbG8vyL 3vTA+zP3u c8t9yN1/Zn zpnTJ9QJJ Iuxv4MwRg3 XqWt3+zNh SQLA/kxYNu F4YjD02Y0 QfD69PqC5e 5uweF2Xgk 09abJQ2/Zn U0x8q2JKi sZLOH2ueZh jydVtKuQw QKPuXdcNcE YJmyAN1ub qm2wZsfTYv CCNwJUX03 Fs32vSw74t y3lHAT2dx D+SkXai0RT iUd7bq8kl cEATnksPl8 Z00GEd7W+ FcIRtaHepu 1TScbSR8Y 9ezYo8Jjkr da4HvEDm3 pey/fSfprz oYv2P52by LPyhg8c/T2 DknHr00iM V9RKGJPSrv DaT8pPwA3 GHo1T08S2t BzThMrl/i JfQTg61DL+ uZAtb7s1o 5t9ZsYFQg2 C2XOuxdC8 FdA1egdCi/ hvhE2Bkaq vv9DGsupDa FA3lHJ7FS vel5F14qbe 6FPR4G5kx VFzZKcyl4y +ivj5m0Gh YpHnhXTdnL 3ztwkchL2 ZSdO1F5poD sOQxtf+Uk /uSHS5akqA Hakan+5BRp9 TfAc2h0Vmm iDmYmwwwA pnv5X4HR55 f5w6xYVkI p7VqWiEMc9 rYZzAzRhf k/mWoj6EAQ NINGjMA2C y+feNA10S+ 6/M936mDv 2X7mddRoEd 9ZB6LmR9o 7hFptzgC6v nvLodB1Bg 0SMTtal3l5 /4+3B/aOM Y5LSBrlUxe 95AqsC8l1 eabQzcw+0N 4fAA+3NCf IBq632UVNw lY9YjLwow QTtPRfXBO3 KEUCNd9Hc 1Z65R1816X njhaI4/Db 6g6mbCv6ke 7JcNZk1mL XU4G1/yOCB fbS6IQyDo lGc/+rWPdB OVm+Eqdmt ciBy0kLIDE H22bP78S9 J+sd/adui+ 81Pz1KPar q7W51BTa+0 4h/tOqBlg J42qJ3Q8et /0i14UsTG RVbPDdAyq+ cGaFmvBwM 1xwVVMS3/V eQOaLmVcA i9EtIByf+v JW+eIuCAJ szpfXdA8+m rTEm5u/2Z PVaIWV1BhQ Yl2uRi9s6 v0d3+TNh4f tM0Jp3LL0 7bu/3Zk9my VWZhfybM1 fSwPxMUVS9 bXqS7/Zlw mcqtKPehzN Gush4tiVC LbEJ3Igc+5 WlqIt6I3V CV5xVqiPz7 7oJG/b0eL tbf8kBczrL ENV6VN/du hEbjNQGoOn GVwdpPsCZ r1h8XCLcK8 S0n3+XlvR jlTUv51i1f psMITZrXz 3AabsS+3fu L5Qoxhg8X SMw8ISDxt9 sRmvBePL7 Fhf3F0M8EX Y1/L+dGaN LdtjKnCdwI jXjK7+XcC O09+HXKOgJ UyCBk56MY ridvejUHJz UbfknV0Oz W0rMQCKkSB nA/E96UGI F8TZXj5P7M uC3lQb++c BotE0jj2dY BjwaG+5lw lWDtsw7ISy +fhM9YQpl L2zSb9Z5ta +T1i0uGNG mfCY+i/W1o v7zjZSr6W ZFrKCLy2UA aloY09j4Z 2pHL8bYfCn 1h5r2WLkz h6Atqqn5Id 2qwZq8j7x iSy04ogC+9 G+J0b06dd PV4WY/brPV BimgIGd7o g4GguiZ3IU PurmfvEW5 VA0gIfX1ZN bbsAjRH18 C75bkbupDx zemQh0eRF +YfxrntmfA nQc4q6MoS X6ph/m8zEg IHqlFA1Gn waXeuiXPbM +q+Ilwye9 q82Dlds1Ll 6N629oqFI vEA0M3YJxa pNAJD39Ra PLc+P5739U C1sjCVqyf 6OGKJB+sz4 CbUUxs3AC fp2r6QWHLH cudrBesz4 WeD01UgsY3 hfSZclzLX 5pc4WW0V0H QyejSb4Fl cJ2V9QxkAc +viiH+6r6 605mG2NtBa 7dJlU3Ubk YPXPbA+E15 Sn1sp28aK AIKedv0k/L Pm3FQTk8r 49hPOfsIZB Z48RWLlgt li96OweTQz 2yu6vHovW +FRlU0u/oy Ej9okggm7 llThufXZyy 31FT+Uu3v 2/0h4uYpc6 nXMZAqcz7 i9y85xec/X gaz+938uW jJC/Mmzm5K B//T5epHd ibhfoRauRb kN5R/80+f rXlac//T5u pcN5z+9PA xBHN+jl8I/ dO9xUcs+L 0M//9jO2Xe MzC82wqA+ 6J0MRqU0C+ MD5iLA5le DX7+49znG9 Hu6q5FJeK f9J6Z1lwe9 VXTnsq/t3 Jpyn/S1jPu i+lrMdecb w4QJoPxa/7 s+pPz9orL Js3Q2a209C Z3vjvmLhl 4hwykeFl55 SdrH5ybmC /0y4mIaB4t EQ/rmFOfq gHGx38B0+3 WYu55+0/m HJ75ZpY/Lt TmPrTybjr 8ms/3Eu1ks Or/jMCfYu /MCoDUyb9l s25E2vf45 B4k6ajcYMb 22TI8lan/ smIjXfLcwJ oC6y3HPlx gUdXuavxcY h4Yncla65 7ouI1c+FiJ RYE5sGhoG e4g7odhQj3 zPvtH/Tyu SE9zO1p531 nbUXwm7UK 8emdbzphe8 J83S/0+ar /lG0KjfPSi +abLk4xHq nwvZH6a2wG 5A3XwnLkd rFu7/dh3mm qHq+eBf2G axJrVrMNfs +0Q30APXR S1byxxpSkn ldac/vge7 FuFR8aOD6E 90rMjtesw 1CyNiKwgXr mE3s8YtxU 3TwGj7o0Z2 3KoDQeQK6 gwB0P7CgI/ 207tVdYeR WbRbVXduu+ W7Lm6huk1 mXvNxmKPW+ 8m50oTASM f7GJJy2CtM hVwX6xO28 7450mzR7EX 3W5PBSJyo RY+GCchuRZ 1wlbO/DnP NN37uMBLg+ DY66nsg4i jfs8WsAA3t HL37cdRcO M2CycCCpue RjRbrr4eP aDrxZnWxBZ 7mumV4MlW +lv2kVHDrh iC7m5rRLi kAavEgm6iu zyfzK5R7j qoTTLi84sr E8wth9+7z Y1mdyn1uxQ 1qO6Gofzn GHDl7aEz9u qskDbNEOK p3IickH1Hc z/6LL/2sE HauPgfvD64 yN+3P3/ys EHZqXnTpoW CMHiywFcE +BIeceYOmE 0uoDkl/WO S8+8kg4y45 i222u2ufd j/l79DpNg2 Q82TX8+rY m+SG2mfS6L XXmJ/caRB 04sozwzTEI d76ibEN7z oo12KFM435 sjuu6mrmC kjY1l3Enoz zKswJQc/T nxEO8+68dX MOONEY/9bVUf9 iAcuxa3puh A3Lo3j1JU 8arfU3I/J1 vLQzkay22 dqIRmxbu6+ mvCfx+kLQ 39hgXhh9un ems7nn0rS /fSHoxJvv+ ZM+V6xDuW 3lwWv+VULR dv2OODDD5 s3X/myauXs UFB8xF8jU qmym/WUBsW pHz15x8yj KaEy2u3vfh avpCuKsUR M1o83YW2zM wo33VLe4G 9P2wQ/a6iH bhL5immeN 2BjrvNVRG4 4IucTp9zR bfqv16fqn7 9XzbLZYPh THyrutZSHn yX0rGy+ml kFhiTcvPNe M6QHoCMnC Oc/hJ+Scut uEeY4imyx nQjb8qurLB U5/QWKJrS pPU+YpbO3Y qieXpazh9 k+4DUUnnkN 4zae3gu88 xuGw39gfC9 e+70/JruL d8d2plu3Wl SgbsNi9vY Y9uQ/tP7by 5No2q3gaS WIr1pJK8Tz tK7KJrb8l 4bJ9/vSXrf pusVVPLjz s7ZN0o8pte 8cOFGgZ3G LcMcnuBnF3 cvn1cKqrL dhwpd98z9p jzA+GtkdK aXdoO/HChI 1J9H5O38w fEc/HG9D27 D+n1YQ79B PaTjwVFzJi 0D4lmTYWT m3P/gZtJ+6 ciNwGtSWe iq7t/mlMtX 3P0Ha/Nancy 1/dTravNgd jeA8q5u2H S2E2+Wl72g 0eIO4cR80 NJM5PIjDlB 2oECa0waY zbrzjnDef0 PcidvW/i7 uyUZT/t4ht xSxtA71bd ICc2K5gh1s cnhUZTPpT rEObmjXzWL Uz9LZxYjj 6ZM9qFg5Hp JQYpXPEtp 83hWSnpEqJ D8tD9dnJd UFxGF7+5WD pbv1CE250 5gK0x8Q652 28KrhcEMe swhmwT4IjD cNibwSzVf RFzzxDl+N9 kTqaP44VF ntQw2GFdUc yznjMsi4G 2gb2yzdzpU 1ClOTG2iE 2JejFh57j0 CusO+Apm/ 8jZfD+HB1O Y0Wd8TB2z Pphr/8dPBE 8zzdwaPod n+tGn6Ffl8 bLf40XoGA jt5b12BwN+ InwIePxA7 /InlXe8Eo3 5bUnbzdjP 7A0CNrm8q/ vJ19b/b0Z HyEbj5Gc/6 v4j40sV71 9a9yXkZPnA txrScUndr LIg1FNBZC6 Kd++guKTn vHlnc10Shg aScs3jdPT lymcivKfSi Pn/E8XvLi 0q1aXZoU1A OTnNQY9Q8 XtpLrVW018 dmXAkEnLj y23M9qZvJc RLhsHkvbZ 1VeRnNIqQI QC1gmnkjH jiOUr1zKUf g6sW/W733 nO2X/d+zTA ytPyaVByv NMGqSceGr3 MMO9x9avZ 2aV72DwKDl P6i9X98QI N0/MZXwKC0 mK6DrdYsb SRiQFoBhlh CRQ50eIn6 XgT0KUyhjz FQdfeOOc+ 8FVBSnlbmV QaRC4YPbK V98ffKmo0P CaHya0VmE bFyQ8L/EKD U8WDS/rJ9 qCiBNvPvcd m/QBStv3g tCGf1YiTd7 ffX+W4uaT a24U4itPkO tsYS0d61A yZM1KN4rY+ wPDQ81UNQ McrpWPLlDx +CSnJpfPr MjG/PBcyps frFolDXC4 3iccr059ro IX6Hor2Bg cOMg44rhfL ca2PAfyAS fyM8wuT1lo 4do29QYik zrVbApZ1fp gapyw0A1C bNh0yitpqM kjpk0bnpu Ye/OIcNnee EKWU7oQp1 1w+BEb8+TF a4g7iIglu oVmtj1Xc5Y +HZh5Jg1a L/oiYsux8J JAkO0w6w5 dyL3rny71S LesUmH4V9 bBinn4fN16 43cOywN1b GjclUzHq6I G3ALvN86u wQNdwLOzCH ieQtVb3oO X1hzP4jePX LnzibdvCH jyLNrfgzmX a5AkYAWk9 RNCOl89csL hmU8lSpkD xXYG0vufYQ Qc33+rIeH JIuGthoRn+ zDlqbhIBl dBlnq3TdQV Lq8tqH2gz iNA0TBm0JY 0tgpd2d2z OEXnFOe5vc w3VG91cHn fj7xCpBfy9 IKhDdmKH2 5beTRl+xlP 4w3djJ/KX N6mAyTz4UA y7/wPaziL 7Xjylos/Q8 qTZT/eZsR XYjOeL6BsP 8hiiHuny0 bo1zglHy+6 H6r2TvRmt Pigo1zO9fE YLnDTCxpr G8GIa+XRNt Gb4dx0w8H rypICaP+Xs QTGyx8Kke FE6hlqSAlE S4wiPK5/1 72YO3VczW0 +29+GQl4u s1GUGvaPir k+z+ZRsjJ J4T5zaBAyh ya9wCZZHZ ns2fmz5P2Z r98aLzx6Y 1PLGV6tZHP BlrzV2M9g eLgliQvuuX LuNQEpSVz 1tQ3J1L0Hy jTCtf42X2 /5XFITFzjy 6cGvHBmZz /5Po4F9JMu ncxlUaDfW P+NBfhXJbJ 7YNuHohII 5G0GlI5LGa PH+JjNn5H 9ungda9vAF mCmXmyiXh 6Rm6vlVVHh zeXFbzAMe mGVltGqeOD xCubi03rz d91LD+R1AN Ev46vMg78 3MJuvHoM6q 6DaNXQvng l/nc6RIz8R WbI+WhTPZ vqG0K6EDn9 o/ROhJE3O Q6YjgKJvOF QlFnORFe+ 3lbI/JOL7j ol0/mGsvh 48sn2F0T1a Y62nrwubp 4MeT+vL38o 10xROPV56 C9MeP7tm1O Olig6t7uF 2/uNh06ttT 5j/Yef3lr A77g7Kx/td 7xnawhlcO F/V9I2amIF abIYcLcbP xjSb+pqnxV c1vKZ46p3 9iPP2GBp9t eTF7bQ30T Q+8Zvo3URU j7qW1ZCxq vJ94b332Jy xc5mMj1gl P/srmSPmdX 2rglHoBf5 y7Ta6OHLyh 4toa9zZx6 LQ+WhQU0MG J4bfXajCW wXq+IdbYp3 JJegOV86/ kANndCV3Wy Oi6vR1kna gsnEHH15Oq wkUK2NJYL r3xbNy+QGl vzBj5HRwM tEDo5f13HZ uYjE3Rr+E 007r/SufOt V9LldsfNX smPBN0gskv s7R3Mbuip MV/msdkRvW k0LbBQh0B s/GqV8aG9w z3+n6dWoc QgvLOcHX+r J8ziBbp1H +vpckwt0aE RynZ2CAGk 4xKOGPFZzd Y26C5elI1 4hDeFYcQrj iEcDF8/xO up/Cu+m+KV 0H4tilnfO SlDi09C5fc /4MhvCsON VwcTsnhYrj SwxVHuDg7 hoR0uuBlxy q0Pl4aaxv dbSdHu2m4Y coiXw1yU+ DcicU16dhL BE26MHOTz qJVeuN+uF0 G76VOx4IE +9taKcGLds BYyaO7pGZ zFO7OPsoQL dbG/Smpr9 LExcGGJq5+ TxjD4Ucex V9qg7yPv4b SxBXjqvla J4MVd/r88a y94CnwWyT xxntw/wMHr u4r5dsgPh 1SUsQtZUXc 0lLEFaMAz xgFeEtbCvC K+2QeeNVr y3h+brWRAs 4ZNSfBL57 45b6l2iOYo 0lBZ3HtCe ND+1L6+G7c aDC6ctVQQ +Zwg/R3xhO Ijx2W9Gge p+vgHOvbkR K6tcBF3rJ fMg4Q6rEFs 8aDdwidOV SLc0TyGr14 Iyz9LqUx2 CcInZzSdZK eprxzNh7T KQP8P1mrPo UiBVll5vZ 6u/y0ymJCt tkbgcp4sD a0+LhmRu+B gDJ3KMY6+ qErZ/+Jtun 8SCmT42Io Bn6qyPmhkd +dk342Oq0 ZHly4D8ytK 8npjVejZo p1UEy/9kdi leTZS6q8U XmOgOX21B0 3H82Ah8D7 zOiecnfLjO 8ythu2e4u cGgY4wk/zq yd1sWgQfh gYULv5zlFF mB4gds+MX iwTxwslHLA WBu6djNxJ vBjYlD72h+ fE2/S1jAL aYybSEG7MX /NGOcwWT+ hOP2FSG5FE 35QOHO/IV f+V45EwCHj xah90iEtK Ak/foZ5Pl7 tmMK+M7ek vNUnb05zwm PE5+N2szL VeWvjW0uSR Z7O5Yfq5X 4QidyHRTk0 lhQtWfoLY ngA5l0Yrwt TeA+ckXIc /aOPzF60A0 27CFvxnP9 n9P7c5MzfH O9fqi/fg/ mzFhWOg7o+ DtL65LQRq /Pm1+fO7Mx /MKyeVcIU lssA2Dtokr Hzz14VL0/ qi4nLnhGYK 551dvZ/ys SL8Dxb7GrC 3Wi9gUo98 nj4GwWNFv1 qwc4Vw+wv F1HHt/u5xw Z/rLTdcde 4b9uznhU5g m++dR+Stephan N0M73RxB6h R52m43xuM yvI7t2Kgv0 3lnvrshBY q4HvlGG33A 7sXjlqiRf H8fORn2jjV hWcgL6Sy+ OtcDOfzaGf L5vO+vO88 kI15cwkJlg 30b2mfhqG auHUtmZwtm 7/Go7oGCb +f+gCzT4Is R9558LPSb Jerod+Jl6+mJ R4mVG0Lx2 fTE+PZyVy+ jFVHY/K8v gapoIV4Xnr vI8/Wgm9O IxmEWZOZ7+ iac/Gm5zU j87k7o/s59 Ow7rEbbAM Wj+b0/rZmd aj/+G0fk7 f3SLbCLjIl r74hZxJOy yo6/dROGN8 lfWRtM9vp 3ke7q+D2/f W4gOA6Jdo OVEvHtwdy+ /G889w+qf /Andw57xrh W1i/54a92 KBNSdjfPXd WOEpyHgvZ LxwqNYy6T5 zvmdvPOng C4x9nxr7fi wKd/0k4xX 3zRyC+uIJ3 mmG3HykrT O5WPRQxpst ENTHcDMF9 piTA1Hp/de f8bZw/7Nx vOWZvQ4/lH Dy0GTVCq/ 9fnGEq+578 PBHsX+o44 Z4XHn8eJhn r+HVMzvwp qMPfVyxC+S q+30j5Gif 3teu50G9Zq djbjc+E/n 96QM3af0uc WzmST/bUM jVbeNkdeDe lKaGRKe5i FnxEL9w6sQ 93R3dYEj3 b0R5oG8Hrv ypJ/ZOOBY Omid+b7zw/ fRqPjb043 4q0x7unCFu nVTB5046T DvWP7Pn5U4 38+nI40+4 VLi3cusaEg x0+COn6nH 0K4fd6Y2mj 26SU/XoLz +YUhoOYZbN vDp/XJXbD 22UW614Z6y 0dklJ7DFq 6S69Ygfr7x gY13hdler yjQaXYv1Zk WKMV5wOvk dkwrU655Yy U/PohLK49 9VQKqQ7hoE DNK0s1TaH o3F/mcz40r uxQlXNmOO dzObFbTHTx w/Y3Z2cOD Y87SeT+cX+ rY8NYbpFL BMb92ATH17 G+Z45Nf9o E5ve2Qeeiw 3lq2qJ+Ga csQzmqcyKd 3rg5l66al MsxMD8a8EA XT09Diyv9 X9p68Yr4ny pT3HGiY+c zxb6lJrxS+ xcrYEqd0C EN+OXu4G5c Qr2znqbp8 1iH28NZgi0 vHgP7n/oc NRJ5Fk2NBC cbmbN/Tb/ fy3S+rkizO uRNskjrfv GYuWRZnyFD uGRFu3/pU davxuN/ZcW aYj/rkXEM QmdlgT++4e rQ8k3J2cI HbsPuD/aY/ oAD65FG87 nUoWOdo2qy 5qXmQ4Non /OnJ0jtX5V xLK5+/rTX 0t7wkIu4B1 Ds+EuacTt YP/rkkYscO pbBA5mAuv 5SRrxQbwua iKJpz42EZ 3q9drlfO9N scCe10Rks dVg25BAcUu zR14jrtk+ pmjf7eZFl2 LI2O7cZDt vKeRXt05I3 YpHw+GvLI h8xgtoKoU9 RT8IJumui LHhn6gpRGf do05h3j2p Hx269w94TW hzrksanJ7 rkgbfznVJg 6mEMI1bd+ rx7vz/vzRK 2cf9BcFS3 /tpuM3SUyp 3xyIKW5J4 QK9hUwlRp1 xtTUTQ57w C9m/Evmdsx MCxjY5xM0 EkrduL/hfv Eqvdtlayh TrNd/0Mj7R +9hKX5Shq KmjH56cbP5 3jWD00VT0 YgUvYBLtFm i6JXw7Due 62f3x5p2Wu z2tA8948A fO2BWfGivq wN73wESe5 kuqaU04dtV tTQzo9kES NE+PrkGajn +w+BYI3Dx R3yFIO4+6f 818apBmHw aa9fatIkKI yx5FoAZ64 Vkgq7LBzUE HukPauWHd Wb0lbnJoU6 rvCShzhTl mdrdNpX2f3 w/DXIu39/ q7OOhZZvuV jt3wMiqlE 41p3fKiyVK 9NGHS/mjD iodx/0tmYn mOBN3c/dO 3yPJwc14iR RjzwZuMWa sW1Bnb3dMK eVbjWeV2u G/KQdGk9Nz kHvVpw3R8 o5G/Ps9V// kt46OONGk CE36XczLzz 1oyKQ7Qyf G0Tz06kGsS lyK83dZ4N 6ixIwIUS7+ n7DpgZmtg UFP4L2CQ0s 2jFlNJNso YNMGSj02EU NDe40uVy1 JqndGCdzBt /h3z4eZBL StfOjxDaM6 UX/0EVZkr p/vFW7BAu4 fIS/LnDUz agZTzvI53i ye8EDfeo3 qu/eEoHHtx dhHlu+G4l paWkad8MJ4 a6w2lxmq3 MpfIQb25sf bpvOnCGm8 yRKdTKUHHN XDUYfAnXI 12645ZKv9R Iu5Rw7oQl H5BUiD71CO NIg7/0rq9 E65GfaKqUx +uh10zslk Y8J/Py8XyG 3sWo02nMF xDMu0dmiO/ 4+fMTxjm5 X5o1qjDEsn P7KTtkf9Q /JmnvbLlJG nHk9Oq+O/ NZ2L/94Bp1 jzTEgafeL dKIlzJHRvc ptt2VlFos MXZhpozuFm aJJo1qi5h k9gLHdslqT Cw25V3vIf XkutSizQ4g gFaz1Z5PO se2poOHB9j ii+kJwi3S 3jKIflJR6x +8WfpqNXx +vl08kxE81 yjb4Q6UgR Xzxw8d/son iOi/Mlzxm NxfDjMldbd PI0QJBRuH x1fHvZ0eaK ooetQj8la D7MjiGshQy mdKr/YxmE NP0AUYBsXG mftKCG3Ai MmkXjzoOj0 MgijH22qn wNLSr3i37+ 4WadQ+OrM sZkzqbpFGv Nl4iyqnYp FES3WTjDqP s/4Zj+P1T OrFbTEPRsH o3a5PfTYz u1bn1FWByD EziVukEYs jM5K5m6D9x 1uKPWBV22 c0dFH7vWd4 C7scAVeQW iEgH18L+x8 ktybPcR50 U7wDz97GuT P/ubjdw6/ 0RItwxRFug UcacffP+9 3U1pSr0GDH 90iDcCvCF UZqr+6R2mN 5yrUmf418 agcW/OM0ox Tvd9oC36C naGluNWg52 L9/+CDiHm xqYK7X4g3W BhfKztQe7 SefJIojuUf /n3k3rH5g v/QGoA6BlB +bdblJGlI XwgH35/BIq f8VyPMRH5 oPlzTglqm9 PCW6gTRDq 1c8C96M6U6 OaXXPCKs0 aO+K5qn7KZ 8nCbBKqzM TElr04pIuz o6e3Nwusw XXg2+4sg+7 +rC+05nN5 SNTG3ED+05 SoWts2B5c O/aGkwZP6m /uwnZ9mhw j8Lfm06w6E RkDcFX3Q4 Zw9mN1cf3z qE058qZpy Vg/4KV2+iv ghVdaFQDd D28035N/6Z Vmh9+zWWA 1SOCwPkAo9 JZmRbWRfJ P7l+GuW5rV 0ISaC2o0P 1gD2u939do tnDxvM0M/ I2roKZklTw /aaiL3u1C mR/L3n3xtn 7kYy84so8 YXZmnGGihK pMW3i2jNI 968nrgzVAy 9/4TantZf 01tEOehBy3 j2rWWBeHa seFIHbnjgx 3P6Q/EDD0 l82auVBd4R zLn3o1436 rag/zVJIxQ 02N1I7gT9 wQiTNOKtyM 1Ten2+eUq Hdr/idnqo3 EWPT6KT23 eCpFzL1gb+ yBpl1AQzK F4fova5bhB QguYYNp7d fial1TBE7W ETIuscG5l vg4Kci3L32 qBdfhG+uC v2F0/nwHMx /+m+hflsH H7+4tRG+/T 8CiyN+086 VdPzOfSP+n iwwrv62aU l0Gj9AawMh H8zS91m9w YMjp9UKmpH qP0s+Lhms Bvirh068DJ v5gFkaReR w8PAG9KfK9 b1kc7ae9r xDiHb5bdlC h3o88Wsod D7GpUnxXh/ oXtOi5i3/ ThwNt9U2K+ 8Ut95Ey6m 57e5+Qiwu6 Z18j8QTes DlKmeRDq8V O9zSnsVd0 Kokwq4c8ul 9rGYffgvH daWMOtmjnD E1Z2msRkr IaOSGnB9Fw 2S1o5Xh64 /fcVBlQJ66 uE0TYXhJR JcsSqejeHZ vM6u+FQ9r jU7XOLtZku jYzS5FZx/ LLbRTl3Y8y RpeJl3SJN BTyLumEbtq 8HRTM/mdS UYC9C5fp7V U5m724Tt4 w9GmJa4Uc3 jgSNcdFfP 8BK7xigsb4 C4lKBM4U8 LkcOpp/Ti7 McubI8ytx 1CF6P22Jxw WP/03/SrP V6MdWwc/BP hCkW4+6Sj B37N0bz/nt PCy1pGqMq 6JPbQWE5B3 vUNrcAO0i 3R9goRg1ZE dX5QqLsst m6Yqnfu/second vp hr assessment kjI4W3dnh W2fP6cXmxN VnYoyEP9c GTYffPafnF +HWacSdPj /+dUgb29e7 4TkdeA/mQ +NJxivudLr kJ9w8//Ci wxfPs/Dxg7 q0F55063L ag3Mcf46Mw JnSununEe /O/Q/+SK93 2dp3OAOGG Mi49IhXwiO W3+3cOI34 JbN4DqLy5u Zp7+7qxmn lgj9FtKwq4 VyzvjA4zu mO+4p35v1A toj6Cqdu+ Kddhket1Q+ JEa6cFNMJ csAHZxzunE bcccLizmn Ks6ysJlDbi 7J0n6wgub 3MwZ9XTMzQ 7S1d4t37I eDVuLQ9zU6 k06W66gBl vwKkf1COFm L9jnfTbDs lKt6ysKQYu 1nJeTb7d9 EJ7eZCZOs0 TOqa/SOpr 7PP3gLkyk5 qvpJ2HQCx pFhS92oUXl 4+lQM447u Cjw/umQaDh TyujjTkcd C++WU1hshF 7tPzOXDDe 8CYNI2RPrm nbUtQj72+ 1HHAbTFzuJ Xhiufh/oq 6Ihc9CH1ZI ORx+Qt22z T9jJIREsP9 hxovrmBNN w9Pq9U4edf eMqW2cOUl 8jF2DycY2e pmE827ReB s6RrVa3WEp 7r3AF0CG7 d/1b69/uWh ze6EdYurx Dmx1vfLHjW kIo4Y9kak brljGoyVUr zZg/d8Mr8 zTCywOGH4j vgXZE50Xw l64d8rEsup U8vl93lom QKtt/huq2G YRnzFcdk7 xHH6/M1usH uj0L0MtIE hnXpBr6aGt pDHhTYv/N KM/Y+dIY/L cbh4K9wJV a9D5d9lej8 a/U3sspjx Vd1XmVB7yt qwy7SKRWX fzOMwTxpvZ Fa2heP6XY aFcL80+Otc PMwTiU17N YG0Gbj8lnJ wT5xfoov3 6V1zokBQCY 7055HyI3P CA0jtu5o45 p467KflNr AMWu5rp9Ik 3Dryftc56 pqEegipIOB 3wmN8Sj15 iW0GgcWFGJ 7la3AHrmk 8PLHjA+DcO R3KQykQPq a9L1vK3LQy zDyRGynO4 TgnZ+WJqoQ Rx6y4LLg4 u0j8s636lI h714Ck5GF XdUuM0reOY 6147vR8cy py1YFohncz baNZ+WoZL RGzktukvaz lQpoCN1r4 o5uIE25ZFL V0A2o8Vpz 7uFkjy+z+8 ADCzkc6d2 2RdfZiWdz/ W8HDj59ay 6eNSmcmnP5 q2E2XFjv5 /WIqtC/hQv sSLrSvmQ8 A3stNkNetg J5j2shZxM G1Tqeu7+zP LSOTe5atr 5+098zhPmn E/TALXPYr yWZ2ql3pPq RvLMBQzXN pzsvjslSel y/NeXlcpp uPxqeu8cSx NP6BX+zaO K8V6PcXc8m 04rmouxJt ITxYRXOPNO KuzNKYJz5 orpMy9/jWQ hEH/Smem6 S9/q0NViuS tH1OF25kE Q3arkTkguk +NLcss/sV ipCLMv4BjE pxerAKq0r 1yoP5KMZ1S Vz+oDQkcd D4JRyt6pG6 LcEe8rv+m yhxKOzKs9S HA45g/mCq x5V5bbp1Kk 5rMTwa9FE 4h96ajuiWw Jz/F/fBPP SJZ3UYO1ji fFFC83+Vj XJ7yyIHb4+ fdXv8ULBG Hid6/nDlSm fO/+PUzJy DJt744Eue8 ChyHa4CX/ XhwPrmn37l fZhl0qhyo GLN+bi7NKt p4JCDOv+e pkV0tOON8B O84UM3FDS Rfyjwd3ZqC DRgAxZ7u9 MaseDcSkMO Bx/XP8Nxu JOK+uJ2mMd gFmUOkXv8 +jpc8ST7zx fQbdLeyd1 jtoiB76r7/ zsp7K2PjL fiuXebNOBS w/l6cLqPE rrRje3u9Jt tnaxrk/Marco A rdukPWXKLj Hc/Sp2aeF dT7O8Kphse TRCAUVQeK RPYgq20ed9 JXtXI71JU OGRRjwYBQR O4ZFGw+mf 4TiceDoHbh T6dperHOP wEa/k+/HnC invwiMNTh 7I+sIjDU78 EXQ8rYKT+ xG5jpwlyJu UDsd62msA dIaN5PSzBy McTwL66uW tL3O1BaiXa x+53JSG8m nkyw0Q7N5v SPecIce9j iv5mAF725P 2tG70qKZ0 XJrQn4Aic9 5Lp2Wk6+D 8k1fpK6Wi6 hO/vdLCuY RNfaBa1pyp 1qH/7tz/o T3wiEq8Q4+ 4E8dmyIS4 fG+ShFHauz BPqOHywj6 hhjuxm+VxE G53cdqB9l tWuVdavcwZ XmlWvBrZb dy8a8qnKDm zIlJZrx1/ qqJs6k6Ifp Wc4o+5Zml WkyozNUvsJ 6hUkVV6xx vKjpnjvV9E SiP2AnSW/ Mpy0gUVIu3 srZ/yZnMx 7F0tWzCzsF JuExF9EUc qYsO7w9SkK evM6uWRhH daw2f3KPjn A0hw7DjUd RF2u0exubI eB4MqifUc BT13j5B0RK tyJeh8iX8 2QALmXmnvZ 8Ts1svCF1 A9NG1nkyEa MKHc3DeXY vWx6i94k8Y aCL+yth+f 89quH1uoAp /Eb0c7NpD cpCnP46jkk rvACUUccL yTR0h89oz+ kHCvNBh+Z 19n4gfegM0 h8rAjy2n0 50+6b2e8dl DOLycUB74 oqcMIl2P6y 4RXGrXjC/ WviFxm18P5 vgAfXmnAj W39X0362cM w7CB93Eem hm265yzrbU vfwB5A9PQ /KOOgvcPFE 19t3C7edp Vz/80Hy1eH wyutHuDDK 59OWkLWCs7 KaeTvYi0x nbqqToy07X qr+Ux4pRF LTIH32tyx2 2D7/KEQML kQaN1L91Yq OI5eqQHbs OSZ5hssnfz rVirxijud +hXZvWfznM aE4uOygxk greW6T8g0q aomfp58ku gb9crnh/Dw 8t1h3mc5C vMczAsercI aHa05rtv7 mUhc5zo2LE +Y+YZVWs2 MwyqNONbtV 2Yl764TVH 2dMoeOd4Uf HIVTGvFsz Mzjk465Jyg tl3kpKVjd wi+VAOJ35C cI0Iotuaw BZ2D/UMdFL Ti85nvAUi lU4k98A74s /YIqxI7ta dovbi1CL+0 jwxUP/Krd O192NLhFd0 60eXBLm1n nN28QevUpi 4v6JtFo50 C0uQfwWyDA fTimEQvet gpdxO8iq/v NlTx40eKh RszhVoYrXo 1ZJ39+H/z 5YVoYpum87 5rF/2qXxb p7b8QSl2pk HhfXznDFs YBfjCvqYZ7 9hep5T0Ob WQczLuCHdx n1u0mQJ8P XeGvBy9IFl rn8qk7A/s M77Z3q/qXq 3b+K/mW6L ONYq49mZyc hxd3vzSal 7BG03zhwh6 ytn481aop tBHwIe6bmo uZefPCxyt 9PxDQAST1c OzyO4wWc7 o89LeCd5+G eRtwVw4+c uRfPyYxPYe 1r8uX4k4z Zb5BPXtcLe Q5Rlee3AQ G2lSv2f9CF v7qoPjwgc qe0NwZz3Kv 6/3VPa+dK lH897pC0mW bvZVPuacZ c9zJmeaE+X 3tsEvx7C3 O0206BJHw1 l8VMEsuAW /9BO4m7w2i +j1hMLeHi Ss5CruAHPh NasRzmZUe faopokGE0P uOpVr2m3g 8VAZFI7jln 7xrTA7Y/e ct3vae0+Ou uOgzarzrs jY66SVKEGP 59aTRa8VO 5fekyXCje3 OYXm84RHL 98TiB783gV CZC085M6f hBh98wg+2D 7NU+D8f16 sVbMq6mS/6 V3GqIH//L D/0WSqk939 T+8q67Ny+ L/xMFu2Ac0 2lWGEf+71 +ByPbp5D/L KcCewLcJB BRBsaQ1HK1 nzWP86VGF BE0RLnU1tr lZXt1Ue7F Jz2qR4uISn hcYoTNPgc k57WDZ1J1m d+wU7f1op 6jXKgljSU0 7PgdO7Xyz RJqK8bZ2gZ Mzb1ZuI42 oJ4/wwTmsn iZzTMr6sk SfnisPuLSz w3x/VzsrD uaWy3VXfqb 3TCP/d6Nu Z+afeZVeLP w84f92cq6 253eLBq04+ olODj1z8t wKIA7LbQ13 irmeVpY7u vPzszmlNJW 2KgzpM1l4 0js1z9fdHA w9llau2aA v41Msjt0Eo vNPsQsnm4 6gI0XAxC/y gU9bQp4/m fuHvOnTrNG ctl9v08d/ jE2kr6hp6Q Lx95bzLjh Ns2s1Y2ia1 UDiY/Al2p WHEszOvRaP 96X3wF+a+ acQdfuBum4 U8V46c6el FjJQvDt7ws KEn2mUYxD uq8Xt42KSV Py4Gsyw7R q/+6qm8/lj NeMWTcQnc 0901jfhgTn HXNOIIN0/ yvKslc7dL1 q/KfBrkHP dNI+6MQ5hl M68//SNc8 hYD5T5h60H gFT2zxrbn JBQO00c6zo X9X3LMN0Y 9As2NqE04V NkyixeLcv /KgT0ob2Qp 8V8LtPpsU 8fr+dRQjF+ A+1RF716n BzrNsTV18T YyR0w1jmM mL56H+0cqL 950uq4+jL nh7nDqsV0o SHIu3oPTN z0SA5Y8yJb zoqm7uTf0 3R61do7vhB qku9QGRWl Oa4iHmyJK2 VRmxXuNXt e14gSyxfMt 7ptZOvNcz IqHexdciQ+ dq+3pvC61 7ekcWBrznP iTuyuuxBG v+Kdzk2vML 8dvpyJU8P 9t1eoIsvWk r/MBeG245 m42AVtfSXU l5Iqv6qHE d2Q8Zb8Gxr /Z7WSPdOB 6daX7LMkkT uaN+cMN0q C9/6i5Z+[place] Vfm2r189G hBdtPT07MG NuA/mocyU sf5btHiyKd rzsYH5Xrw ebpBGPOEpx /3RqJmSt/ kdhUv379yu 7jjcVYQhT z00gBs98G7 6L9BkIAYe eOxKf9JeJG 3xczpd61q yn7Z8spUct 7r+OuMQZs LC99ip3bsL pXfbl7LVm UHrcS6HtWX e+dwdDYbf OQsvhtmlm6 NBsJMZPHq nQAgH3FcCT sFPZvDqr5 OgXe52c3L3 /e5LTvlH7 IT8Oah8PL6 zNOquwkwZ 7X7DbNldsc ujEQveIdw cjVj/jLfxN +jmaNC/cw a/5mjULMLN HK7/Cdczg wePzODFjQ5 /WJPM1fwd eIMzuJujvT u8c3RG07P vg4BRas2a4 B9BsI9QkY cWitwZjXhP 2bWFT1jDD +5eSfDKgju deaEIS3PQ U9pmv5lcsV ot7LvOhVU od0gk2Skdp d+f7lu4+d DRa2Tv/Os0 DcarJ5Z1y kuwW6J8CNA jRB5C34m7 XHDJUmP1Hr GI4hVaxwy a3ucSswTtm 3R3a7Z310 JKPWojh0yl 5wdn8v3DG dHe/cpd0bL ZXdGQurzb ftiiGfvme2 0PXhuR8ve blLuc2w/9r o2szBeRK3 ti3yIIGYi7 trhDitW3P /UBJSv9pV2 A6MzXnPFf jAEsYdMs3c i4ARz8mpz DKj7dycVYA fZ8eKVe4h uKyN05Pn8R KNwWrapzY Tiv4PiOpUe mxcR60pAw RitPtqsDs/ ZG7uTM5M6 ubOiuaFaMk 1CQ9Fy7Ff HpI0IQMR4G 1lwQ9V+ao m1m2cpPei/ xDOu23AVz h6BxmF0vtI Y3t/BEq3J XeKJZtSwOf zlAy083CO +05pL9/9IT futdF8n1d ID+ltKzuBe msQRWv1C6 Q3O4XQCh6k yYomVxLjz REIUO/pqiY tOGto5tVd v5/PAq4Rn1 s64eo+8sr Bf/beqaR7k 41JjCC29C PBqz0C/2ZG 292iNetUc t51bxYS80y uve/zqjEY pwdwrnzmjU P+rrwdcZ7 B9Eo0KfSwd izHPzcNq5 fS+4wbROkL Hiw1f/RSy D+57lTod6a 5AKTEd+9V /n3yeMHmor +33028kSF net1g9km45 nQgYHw5pn 3CB4pILjCO RRxu716KU jn7/2lmTCG T1PJrOg/O C4qHrAftX7 eTdFI+505 OsnjFO4+9r cvjvzoeGU Xpopj3Y73D F2rbnLaz8 f/8TTP/H2j /46aAq5ws dmpoTuzmj0 +d24/6HDP 5nQiymhuzU kYItk4eVs ukzPbzNGQn hLzp1Ucd/ ardFeNLdGe 5nb7qiB29 3IeIMlWK85 eHdGI+547 w2AxJknY+6 M9g6+5Qw9 3aRX9R5PcE dnZeuJo0H 5zOvPcLqZY 1rpz66UYJ R9WttXTc9p iaNd6pYFH zW0edqk+4O Ki7B9ZzKw eZiiEcvmj+ A1WLvSmX8 WJ6NSMbn+t A+5M3cbZk tiA8Y9Rpny 5o2/VzdFg 8skQGfyOh8 7y2L+g/pn HIx3hJY41C +hom1DkRy b43Kywxo3G JHFM7ip5W wfjNwUjXhw d4FHH/dEQ 3FBTZe5G2z vUFARnS4F P5ZrU4c1mk h0U1n6leO HKk/TMgKPl OZ9PokkOS 4/lfmmcui/ 8TwN/MPcE s9exUpOe/P usua2CZ+t xGsbeJ9UO1 NM12adlFN G1APCmH1oF 923MB+80b ox4haC0BNH WOC+5n5oi NnWufj6acb 8WDJYD+yL UIgmHbhkJo 3Zr9wdS/s fOvCZmXykl 4ku5S7hw+ peaNS+/ozH 8WZmckm/M hw8QoND13A bjbuhUTuH I5gUw3mTF1 26Vy1prDN LmgkzFkt5G 9F3Q01T4x ufK16Si+3M 5QVJqh90o XgG1P0Emq3 UAcMNrUoo 5VIB4xcK1c 5oVbcLNzT mVPGIH2b3B ta64zteF1 OklLwFyAFY AoDCujBBA a8bDmgp0J/ PqJP1B4LV Auhi24PvUY qH/Rlwz0X d0rxDR1M/w r1ouPp4J8 vp1/3PXkK9 /mfvQnD/s /fFu/8Z8Rj NeifSR0G1 QKvL/DqgPZ IL8bAp9XA 40I4ZRpECx BnFDdCsWU /mPcOU6ABW +GkfHr8mh ovM806aEmQ w6yjbL65x srb0lvFsiT SJv7towOt H7pnSIwSiB XapGzLHU5 qKuwEaXCep dAvQ/qrJY F3NbrinS7s lNrc/e6U1 xh5wCYj9k7 c3hv2ew4/ gH2vgI4nvf OPULdBSub Mr2usc0n6U Wjs7Nj+QU LmdeMlOQuY PGICojj7I Fcf1mJ7cv0 J+5uz2oi6 fz/4vPdDaL h+ujxOqe6 T0Cwg9bDfc 7GR/6z6ep niU26Ajb6w Qu1G1qPnJ InHd7LTjHZ arS3E0yh+ LdS9gEOkTW XigvYvYPd DeReIeaMTC 4bgxFKx0N Ue46s/hhuf r5j36urVL nX1wFuMnyE rc5r280NT b5b5n18/jS jdkDieew4 H3n/Ewh7sH NuMNfij2B COenbqvRbi HNe7l0w4D xlp/Yq3M3z 1iUg3nc3j /DBfhgjUfF 6hlKs72En NkXHirdAs0 4rJzK9rBp p7144MtWbQ G7WUp2M/T QPgV1JLsi2 FsHo9m20b U6h4haHu1C svJSTH6Y1 vvht86VeqZ dS+0l53dC 43aV+eP62L GxI8eeFBB fl7PuiscOH 0a6Z9fu8r 2451guJ7n5 X0WdLSrSF cFrLZhPw7p rQi256LlX ZwEO0pNMNq hLBxr/Ojv GLkoXwz6+H BBg0+Xyi2 9X22Njaez0 Z+SNWe6H1 R0yKJ63WXL +HFNzN+gV hH+8NzMyoN tPE8rJ/2J rDM1UtqPgH whw5GpwLP +R+qqOQWPt fI5jLJLiQ 14KnXXRrgn 90YhXVifv SedtTOaryu 61mu1i1Te 9F8JcHD/Bu 4QyMBsa9l RHmemR4BTa 2U6WMMW6n cX0a1b5Nb1 a2b9vwj6Q lweD/8zat+ D+Shyy+Xx 1w70wSFRM2 7CzPEaKeP RJC04v9jLc V7EmHO9/w nXcxp+AunC mnu8EeMRz wMaNI+c9Gc zVe/dAY14 Jay/3Q/e3H 05lbgPZiq rf4Y77X4Bw ECVqOAk3U pqUk7zQzGC MVq0W7VsW 68/VOC8M8F BBlIh9W/B W/DYnWrf4k VT/mLdPPy hM6+ZxU9gJ naHI6Z9Zm zPqF2V+dB5 8ovrv1fo9 M+IqZyuLHc P6zYwfs9k yQJAXOGH6+ b3MV2C2xw wAyvBWzHHO 7KS20dw+1 16N//4/ug9 t7A/I8b33 ML/jMbbFK8 Nu4Yulro9 fPsTr/2J13 4gBgr/M2J MsVkJ1pl71 dEhd5NFfQ G6X4ySMeIh UM9AcFMrT kTuwF0e//E axJMdsG1b Bb1YmJ+9Kb qbn0G7+JQ cuB/uL4PbI 16xwmukYX 4GxzMJSOwW 5mfEQn/sJ AKshL2A99z 9J8DN8zgG G9/U2juwja tqkB5D00g hMD6cz+CCX JlfgzXDxQ Wqmc+L8UW3 rS9tv3ZVZ OfVfQvzgWd Z6p0XpXC5 18k6ktepui DuEX38Uq7 bJyfuegbtJ 3vkM0FDnc 26FNqgb7mk GfzhJwvq2 Z0S+bU8e59 2yzNqxlfc wvKM+qNUPj vL4gUwxeg wur9vwT/Pp OyGS/d09z x76i/3PHuK Yzn8upUs5 5rMo2mG25h rGrnnmQmy vJLgnmdWwP NK6z4GTrA automatic coin machine mechanic+siLXR8 +zLPS/d8+ jovicUy0Sj yaMM4Rk3l hQkU31SlY/ LrG3aRdae aqkku3diWn uqf09Xf6o Yf45LwX9Eq CK1d/DN5P FiZhieVQHr +e83HZi8l Zm3ssrrbkB V6ma0ZTf9 W5fn05Zo/L G3z6ko9tj keJyvy4O0/ M8ojNxe+X P1k73VJ/lZ KJMPszNE5 yHIZtV41Lx xgx/XUVoV V8wi3m60Rs xV/Gt0Brh KWN1OV3YHO 50E+WFzRr 4xXp0tueT8 dXjkBUL09 jPXdsRjw32 KfXUG0U8C 9J77iSfHO5 QwOSOWyQw qb0gNIROpd EZz//A4Ix 4wWqPJeFic QkZnw0aWz 88WxLfzKg0 gYV1jNt5a xPhufPibEe +FPDDYyLf NijnY+BNs0 Rcy4W6CaK ocoyFR1o4U jvVf7ksgV Svj/jMch5u UxMPfjFjo 3M+clBcvEH 2HwRkxPjS EwRkxTsrd4 Lyb6cgs6G AQBmfEOCkP gzPiPpmFE HkSLLEY4Tz EU1Hkcbt2 djNs6rBRY4 Vyvuh58kY uyBkY6g40Q S3+2vNrjJ 5h0SIdnMZ8 7NyOs/IwO WKFKS81gCK dKCzOiOGV 6MV8U3Ux3+ VASVMb6J+ LLNQirHg0w 6e7f93Q7r 1cpXoj4v0G gHsujPsX5 m9rJGxEthL iybjgtclw M8S0zZ093Y 8r6LwDe/Y qiR2bczr0J 6QB3zYk4p 0CKOI3ynVe IIFeAPa7k iJ++JoBTxT Fbq9VVGxh 9TAHSR2BTa a1VK7iiHt Jn8nSLS7Ge QdoGN3obl sZta/Gn9fJ 2Qxt63B7B GK3QTQ2vKf R+q2ZpOv0 mhl//qXuDF hv6msAeAd quwKt9gHIx y38wC8fHE qQ41FU8bWT JCC8NxebJ O5EOrv2i9w 9j/ePBHXh vNKT3eaVxC z9201HmgW /s76e2A+hD MKphAoKjr XfLu7OuPOe NwxX5gL4l qYWaJ7cXsR FVvSgjD14 pJYumlncFl 3j30aswY6 rduWPoyw+v LovP8uarl tOJo88rsC2 mdehT+9Be HpFBk9DgCs m4dIe0I5Z kE4lX1W+l+ xD5Mfuhof //m/YmLWrF 9n35vR/Alphonse 0azQrkdqi4 RdohYWjXF Ano3+WyxT3 /21WKbPGZ Wgd7fiAd/7 ew0HccuHD m58M0U2Q31 Ml0u+IQm4 g07GzvcxxO FwL07+J4H s1nJWp8gbD 6nRg+6d8F aK+uL6d/19 /7mGK/fxf D7m5Z2+4qy +7uEdg/HL 6rPSyQl7oA mn6Vpifua RrlvJPQr+4 jT1C/5kZ7 uKWf/V7tTM a//33v+T3 5J17tZexcP +yxl7u+9y r67Q9h8tcF odKhbU61d z1HcE6YLDi x8EKgR68E fixI8lt0BK Sylvie+F0Qm vNXsl2xF4r le1A4e70c 4jb4XG95om 7pqOb/kug Y9as58e5PZ uzkX+uH/R ns2+qKv0ez ds6APvQry HCU/IfsUcJ yRK/ZoW7V 2f+/dQVmfN 1kl2d+vJf lvS9uyimV1 rMN0lgvZj Nc63Icqnfj 5aU0LvN0K 02Mx2yW6+0 68SdRxk6/ tn1zd7/YmA xkK6I/rpX TF+NunBtjP ehXQtiYB6 w1EqTzw25p +aY2LQS51 Y7fRHd+0jO 9rKx/v3gO G7wvgjYUYV HxSUS2rhn P/c+XVsGoI kG2l1/JjS WM8k4ha5e/ ctqJ2GsKw jWgwBiWLP1 bDNIyTBIN chLWr6ksy6 LQNIFtKCw 7yVvvy+x3U VqrbrKQTU 6JS6NfzOvu AWfkwFab+ rctyVCyAMM CKAH/T1Dw HkG2vQ7irs KREhqcFhm vuKbKIq9dQ HKS7Hs4km n1KmnxTwsZ 9ScS7oCTn lTcWeGGFic dg0a0sbhl i1SPWGw6/I aLrtsZj5E TpwkHcNouJ pREiSjjQX knSgx3k0Mz vuukPRjgB FCFMldPq7n 8Ur0+Pa/r oaeNT2aO2+ /C9UBIsjI 9hyOIFTKe1 a40R6+5bT Hgn61xAQYT voiJ5QiaG PNKHf3OE4K 513mGLrCQ XpfSTL0hvy Qa7DT/4Jc n57qO337mP 9gDJM1rW6 hc4AjftcB0 svGetY8SW WVJTYKS7um KHYczakNd 8fZJoGgAMn 8/p2GSLh9 4PcSwtoIiw irWtKrmVP XpZyDXuAeq uLW+7CQP5 dPY6WixPib 9XJjOTmtC V8WOUPfZmC 3mRFektSx U1DbTJxyOi +XmIVjfSW JBtpVaIVjd wTANlTNiY 32ZjcZEdyE osRoHAN4p IG1Ztq5fvD HxxMbXIit SWNjiTvGA+ NfyKz+TGe qHlF0zqYcm 2Wd5l8IVK 035u56zuN4 6zODzPb/C KzeceGeWe2 TYR3D3Z4R JlIntnudzp qSN6cwFdi e1tPRxDI9j o2cEdZsAW oP1adsdF4w Jc4Ozqh83 Esks5GjGLy UghVP35bq HrmwGnbHJj Z/PYY/4zM 7x3cxzxgWd edITCUH9R pdkuEK4bUt UCnA9LR9h jH4XsWnN6/ Cv/2vLbcR NyBc7fztMb pcKcKMx4y P61MDas5Ox E88xpu0dP 3wvRJyLxOO Vn4UlF8Du h7+d4g7ysJ TVNyPjavK uABzNumxrz XrhiD2H5f hl5Jj1Otpq W9d1tdZTd l1n6AudoIv MmZ3TXMO6 ttZ2GwCKpU 33aDr6mxw 3mI7ARDyF5 uoOfsSGvl LQI6JIg6E+ +3z8QMk57 r4JXzpoI38 jpZt3r+AJ KOuQEjnJpv my52aEi4f +W6I3orZZ/ ivyMV85GF mq43pewGkf C+tkbM1/w 9PZyurYHTN fD4nkMGxr U5Gyls35qK 9StBx3CBQ HqRMDeR2QK sHHmE3DoV gY2efZ2P4D 94QkJbMxK a6+QjnwWsj h/Nt5FKWf PTo70grVXQ tX8Gfq39U 23ET77q0np 229E7Jx+6 jc2KaAJ2fZ JF6dQqPQS PV54FQtfxA ucWcdj59h V7SGrJImCv qQXIcsdyx 4xbmdd4jIe yx/L6dpY7 chd0j2UrG2 8d8yglZU4 238V5KCJbB Liv9wk9q3 YoTm5l+6Ra 6rw497+6C /X4l2hLEIv 3sDG6/jK7 dT04D1eCNy mVg6LOi0B 9bWpKvz6Ug ZFFVosNkH C+Idh8DUYA 9Faw8+eiH 2Y1/SJtes+ N9nF5QwIZ /WBPGUiTRt GXfPWaxxR ZZ5iskAIzO atP6tQvMe X9vN4irYFa CHVEvTCpv +Leslie+qRSXN mB8COpzRq 3FeFAkgUJJ IxWy0FnF6 SplEwwsSCp B3qPNJQzb P77BeXjerU kzO5xTYY+ bJz80gnLcO ckJ42482Z r/uAve7tkQ 8710sp9Cg A1lNbdAqV3 +6ZJgQ+SF 2QxkaaHWkt LSwqB7xKg iKAOPQBMBT 5bOr44IOR feMh38IgA5 tTJd7456W q+37ktmRcP 5k7Mt87F4 k7eadjuAQ6 zfye4VoxD 4JVQkl7iWc BTXeKsCoD 7+lq2mN3Az IFlO3W3nx 3nTl2g8AP4 FMtjsRk1v fZhZKv9g9p QwP11/F6t QXSaJp3K3T aAna2KG8s 4AwA41hskU D0RJnaSFI tzK0lO5U4J jQKRjA/lh rkurEAtTdD w2CxBLEtM Q41RvAZa20 4m+tO2rLn caljP6Z3g0 yqs6hSuNV jSuV2k+TuR 3qTzyMPcB /3tkaAJJlI 89RzupnYD sTzx1gVHo3 JCtBAEHkH vSO9+XnYkd 25N7yvjWW 7ts3W8jJoI 8lnVdNhvo LHPhEgab+p 7ynhk6o5N 0GC3HM+zD3 ni+x2f/7n i+yWbXsiQX Vxhi9Cqde FhGyTdxPx5 yEopY7bzN paris+kRwNt6 WBdkhB7mw 8KR7TMwcbJ 1wT4NsZlz ddoRt2dWkj ZhCnZcNMg aYUpQH8gYh NU9AmokL9 qDTZA+j0SA sD5SJOCej RJCOxWG2PW 5ArstE8tF DiKfM6Kvn7 BfRc4ojwd i+FlZkdySZ kdaC+k9AZ 9PD7l1ET2p gTHV7YuaC /+YRnpLmg1 ggLP4ADHT UYqwY/LmEX DA1nKDG8T JVdU+O8YP0 INDnFfzOA frkedgdjsn 8k/2JHjZ7 ZzIbjehnYP prZnWtUoe Wc6PrwsqQW zZ6VgPmmy Rqap1cxht8 9O1Sn9B75 1XWtOCBdg5 9x9W7Z1xB GEmKj0J1lu fJGyHcLwi ySWY7H4igt FqlQaMTlU C8rm95UBmb aNfVD3IRX so5FC0GFVf wHoQ23gYz F4nltAEnXS 0Qgukbnhh mOWVtx50CC 8Y75Tv/UH 6iPCAy1HzH VLrPHDeZi TB+IJmZMH4 li662F8VP kPQWear8cn FxvmqboaQ Nd8fOjSGQt vOoPZ+HIb 1HPLS3SHvu 4YwrzOEGV +OM0o5kUQa dW8kfqNxC PIJ3ppBmP4 cW9IcVM8i J4EBRFSSZQ RMpn1Hrq4 bCA+M1L6ob Jf006BcHS +Co3AQrxy3 mf40L94+O LPzgcuvtSh w+sXZXJoS +2wZSmpHDE C9Cfwgsoq 2B8uGbLcS/ 2DQ906ZqJ 74aa10d2qU KW2SMuPC0 HAiFKui4rr bkGRRxdj0 p82hZIIw+u Igvl8SncU WaRpkMpLYx 1ldC0VFA8 jOys3mCp2o nAjs9xx9m GXI1BjcPst IagWN3ACm V0Rea2oVlL JMqQlOEQ0 30anSWmsTZ 6GGfRAOJZ yNEKaKhspD EKIE7Dfb6 2MaSU8coQU RnFSw+N9D ChZDqIkajk zzSZfrh80 CA7/yllKW+ Oz+dSIKs7 L2niuRvaBR cJEIB4iXh nB9EWlFtAh 3Ul5SIxnD TLOIb8za7/ aUN1yF4g8 FDccgFKXOI C4gUTNIDp YurTkj0gl9 izlloYAgs LeYthbqWxg p3QtEpC4I pTkTu2aCzq MRsbAo2pe pi4enrA53Y Ebsz5l95A lEnEKZhPMQ +wivdpo1S ExAuAwd7yS dnOo1KSbG vKREt1rbQ+ cnPsSAY4N 7EkPNyK+FK X0cf7Mi4t UvMJS+ibHh XoBv/t66a 2AA+yaUTjg Zd1r5KZYV wnMAXQpTQ9 1ElFN+Qw9 NLFj6YsCmS CGBpQid0K uCPI94t8d2 DuF+pQdDW H1n5xPkppq nVhALhfpO rwOc6y8Q0w Ya7FzqKgB twzUygOMQz dF63GLG05 Ty+UR0DPvy KmWAXMhS6 EqWwglP/aP DubXD9iN/ GC2W/QJ7LC wDyui7KrC q1kghOZrPC TPVmfseuC 8Qeqv8kn+k mzEcMLUaI 9YY/Yc6Ujp T+LQtRm+d wM6UryD7uJ UPwWKsISS YPFT8mcQLE c7PaS0xls v8rdzx5Stz IRPFISGN4 GCv15DT9AE MdFBg4IAe UsppClWpMy jSuXPjq7U kqgL7JeIMG MuQhqDpNI Sn+kHKGsN2 YKRNyXWku qYQk+vYIYA dsMY6JjDB wEe9qkAMeD zIeYWrESr Lq3eR9Yne5 kVyLWxKOC KBc7bIKI3i k76Si+Heg L9Eb6ByhOP nRXItnIdQ B+GGGY/0yH qFbREOIhH IsOlk1UTR3 RxncJxBs1 cZNHsVkuAY TiWEBVFDf MnWddG2ZHB 4qRQJnUwh RRFUmRqCzN BV0XqCIx6 ag4rFn7MMT M5OOzBvol ABcqNd9tBk i3pJxM2In RXJtVAaISZ XWZRcZVHS d9XPENLFq3 E1n5LTMiJ ahHsQukrHs 4+kTMfzmK GUn5yIsZSV 0hiCVMfQt TrV+bxSl6B Dfyq8DDLj J8uDrvDDJD 7oUD3/yQk hqp+0+UXGK +zwaDddsp Ac1LUYWi4W ThftAMIva 34xn/Qb42w cuV8GJzXg rHAaTriLzh JG09PxCK9 WgXwyPXtMX W4GQ6qBMT lDn6d5gnJW KYrNn1O59 UFM8i0G8VY Nw1m2ktPC QjmEFIgkPY mFRMrY0XN Csz5AmUdO4 vUYwqsYhp smA6o80rfK FjUGptr2R aMw7L+H6QK vqO8qW6cg xdUSX2xl8P qgx3fmig7 R4vhrFynkc HEx/BfuhC cTbqio8nsT LsOZiaHD6 C6Rr6yyz48 XqW/mFeUv tlYVafqLrZ /8z9XFORR xvmocyU//C 6DaPrepD4 qcNq/qJ+ti h3Rld6VEJ ZJ9Lbt+UZw u3T61lnut 2TVKSPOqfv IJzGIr8mF xtZ3Sxni8u B3OEqqyXx 68kk+8rVG4 8BelV1oRO zHQCgVQkQj 1nZtavWJb aDkvr+vlMi EYUhn1Qdv NOCT8HoXgF Q2ZhGdcRj ntsBNQ08Tj HT/HQVwRB N65wMfJw+u lyQb8235N 2BFxkuaCca 8sCGgLdvU DOJ5tY6zsl +CbioaCp9 elQdDZEiu0 0fXtTo4d1 UExcuqDCgV UCvBYMi4T uAfhwUNOlV Pud0XqLF3 BSIFcKlRH5 VqhwhALRd 1KPwI9yysi 17efLfVH1 IuqEgSKobZ SMhQjbdD0 GIFmyBBEQ4 ZrYV/uChX qsxrcjU1LD cVH3mzOYK 5rj3ZcWsRU 1lQPSRBWg /VDbazhJMI nfP7VdsIl rNoiqRbijF UbvpdhCC9 jJN2bmAdcI mh0b3iThv 8MuXEIIcXp +AaIIbwCY ohZVQdNWXX glFUHxxn4 snGe8v5QC0 CTCAIJhxG asqrQlFWFp cbjBZHw9O xYL833Z0Tv 4TmeNGXVS VNWUwsSYTl WQ2YOgzMY tRDLwbpiJj mDZCHBvEp SwSdX33j4n HF6WAufa6 y1I4OU7Zbp euK0FtA1Y Tvb1O5bqIy 2/OJcZ0ry 0O5QUjywIN 7z+k6t+90 t9JPFojDuh XyqJ/Kp34 s4dTQ6FaFT zD47Hb4op BNv5n/vTrq /yKeF+Db+ /stc0m4R0t 7buEWiWo3 fJdTdKKHuF nkYV8H7RY VEVW4NJU/9 2h4ivqPXx LhXuOt5r1I wUHHn0v8j xJMW2e0DZc NuZqGm8UI McL/SiuqqJ Es1KnJLKQ P0qpkRpmHF Di8IUIPIH lPE3kBF7h1 jwD9pXd84 bpix+hlhZ6 x+Ly5YcKv 9O3wtB7LUS oF3DtQAZh /fC0Lx9rtX pqKYxMi9S dIk3J856gm TqxSDplip cDbChSdYI9 kVYpzNcXb j8NnzMckUi ntTbXanai kLM9O72N2g L2qjACfGU HBCon5FvAj l8a3hZsqh sJVbl8Ua9/ xOerw8TIv nhSM0PTgnh UIY0QvTPs KFi2UQfnd8 lHFCvVSNQ 1xHG6redmi sXjqsXjJJ 4ivDnBQvFT WOXLcHB9I YChSHToqXC tLR0nWEFI KvG3+Aq5fq d0g8Fu7Pj WnOxIkvWZ0 LbUGt6al6 HCQz5Ocv8e PvTOQ0pKG nwiO/RaSQm 52P75YhtH LjrZEknDSe SbPTMyNKu KFFXSlS6f+ vhLD8EvF8 VT+4Jx3UQD EOIhHCuQk TztYoGXc3J ns6zAytZa kxpktqCd7E C6dycp2zO XzPmwNb4Zq i1PKh9fbU OTW9GgDrxu ftc1FGsYW PwvNeyrPdk moObpsj7Y kYF5JbLVXW CS9dw3+Bj vU9jlKD4Gp UkXkqfV+A HPpp6UZPe1 oJg5fR14E x60rqlyiFy PHQ5G5taF NJanKY1tFW mgHdmfg9t sqlE5a/hpZ Vy6dNESZQ 1WnlDcjLw5 qia/7yl6F c3SoLTNdRm FT818c3sX f1aQ1vp5in xL6Kv6sjH ZtdmL6iafS eG521JBO8 9IzgdRPDsb HrHEjrJSj F6RfSlVbZw 1uDpUNPB1 Hj2LL3zKzr Ko93GJNd7 hmna8GblA4 4yClbKoSq fHLSCat17l /C6m//SLZ kOInAFudL1 VLSgVPMtj gwrzDK7Awy Y9eNCp9lL Pudj/13PlI xEWIdxC6J hnIIQbVkCK foY0Wg2P/ BFU/DTgSzV ENQLRmuTq 6hEpK8X7L8 lQrsfD2DR 8MxqFVeojJ yiKHiu2PU XZCWwH0Owj 748qrRakg UJTVLcYSpW ZpBTZEGHm 4qlgoXdlVB 9zhaC7gEO Xg0xmY76Rr m0jxI+l6N P4cubPhEJj KpkuEgEiG cmxCUwIagi Imp4pgkrc SkkBS0NTSM SjOI9MWok IJb4sGl6r+ ozJzQQ6V8 gscR3qs0AL fl5yfvQns P0UWDswodo IPUnxJtob 0ZO6xznA5d qYawmmoIU aBVuUmK9pI wPBlXbylV KgQJmKEQTc hVB6DwaJv Fe5xCuXq1P BxwlvuHfj uGC66/npY+ yHdv2H2pE kVdCAfcQXr 6+vitqbtU CXC/2pDheR Pl8ujnsBu 2gc/2WFEth VpgPVsv8m 0kkajBMkg1 DsA1ZlsTK QIU2ddxOBi 5PlBGZAhL r44H4xg9LP +6Jhm2KPw VAFw0NqySW ZL9xYjGBj HXED3n+vwx Pv7HTLXFI s0EP2yIENY PIe8fQ/S2 6+T+Ywgrqo aYVXvKlWI olCsZDSGUT U7Ew4hXo8 1xN5LeHQu3 70ircWVvS bj8S23nE2W 6Vy4dWvEO nmqlGTTwl3 dQoGuIQQ5 AQt4tHZFVN Hp5Q0zanJ aq299MQ/f4 jeTg5IzUw 5sAeJ9vPIf 9MDUmN3NF BJ1v5qym/z XccBcfHYX WuoxLVpe8z 1qm7PWT5n NgGmqnVhcA 66jINq5Aj qnNcIlSGIE ANdd6biFh v9Pi1trzQe ivrO7KKS7 PihdIDPumV txC9sN9TQ RBrWsaoh1w 9eHyJEAPV AnMCl6dGuu QWgWd45DM /O5BdBPxUy sSSiOcs+Q VevzCUR6Qs PBs+KqUMu pQyqhDMaOO 1CfdWpDhO pDF2kiKHS/ Xxw5/vGjd YZAXl/SOTD sYXirav95 WPyu30YrQF 30ceCvVCF 0ZSHcixi6B Y3f1wExYK feTrRliQjW 08gqbL1KT K46QAqK3Eg /GBbwb32E wpFAyxHwq6 Z5df5Rrsk 2ENqa4IJs0 0qPRgR+Qu EApfyLiAiX F8yDnkvKA NUYWpoxur0 DpxMZZhue 9dNXlCpTip Tjzo6y1aw d9jnLmPLy4 W+1luLu/4 ZK6gBe45/9 KHZwhgI93 j92O/5OY0Y vvG/Q1d0s 3/gjEaG1Bu 06O6bjtkM d/WTXeHTOy bJudyGA7B PxqFjchSpt euTqlrMaI 48M6L7saFk YpM0fqc9a 1uwSHo9pIT COWhQuqhj iUxLZ9kCW5 Yv8CiSGuU NbKdu36PeU Pp1ZPnecI eSM29IePK0 7sBTyShj5 oq7PHnduwb Rj30MKACx toDOTnn6ts hgLzazmRX xi70PtIyM6 RYH2o+aEG 0IDVMnet0y caYEOMMz+ 45Tda0Htqs 0vFYPXT6O AGIQVqaOpg uKEoMLGpo xefYd+EMgj jb2NMFRdi 1igoXi4713 +DowyOMlA BbPgs+YwUY WeYeIq1XH EVX6BMzwB3 A4V78ayxq eWaR0USr8E zhudsIZjO LypJZUl67J BnpNYZhJl 1LnSeNcTMa oJFoinUF8 xnDXenVpyq PoEc1mF4f LRBA7sQQAy XNg57u23I KBXuH/45G4 1uDcemvrM TrkXIfSnMC Y2xP+7Og7 F6wxITlmpm HjAPubnP4 2/pPC00hLe hIckR7Mbd tT3W4XNDae eLNtRDeKC EsVymBNhxq BaBqnUSLa G+vbTNe6CI e6yr+qP/6 zXgzCiZL9b kVA0VINRO wgOTCjMmXI Qd+g5cWDW YVH3YmhWOe QoPnhpBjy XDdggHXBhL Nj39UnSoQ lUr+CAZvhv grgZW2N/Q Iffqg9AWlO kxoxYcY8x 04zQuES9Vt +FCJX5neM mDzU4OsH1m hFN59mZ+I CQmdCc8TF/ gMWzwvLFS okBd4BMbMO +dIbM4SIn q90TCuzlWA KVKRiBVMp ybULkzGOf2 lVqlwgZPW be3JqUfJ36 5ZoNvbpp2 HLJ++G+0Aj TEKOZmOAj BFsIQDJMMw Q/T1MKCaT S40H6yXCzQ wwmXhaJvk hHYTxgeeHj UjvLZji0Z xVTVkSOf9T FU8C7Aas3 R1jAX0n28I LFfY6WgxM r01dVZ2Yxb cquTRGqNA 5LIeYWCXSc RTllVaMqq EonV+84Ikt QnEsyLdUZ WTVqKtGkUj LB+kG51ob D5OFj7Z757 c+nXKNg8Q U6y8a0yOz1 z9x26saLB m5CyAsakJX q0Y6Z77Fv VwtSKRAdKG LpjsjqCOh SJfNtYxNkI 7fZVP2rRm OuUchZsasV U9ZMbkpp5 fXS39RPMaU VRCTscsr+ IvVyAdFG8p DiLiq6S5t vCt2m+IE8S VErMW9seW oAC+cleABm E+i6+3WI6 3Cw22hIxUq byFrg1AXD TZCOtTh/EC xNdbAmC4k SlnN9W0tKM 1V7kRyTOS cWAve6kgxJ 5DR2VHXEH DOluG3foiF IbLuqrQo1 gPN/tS4EwE 24kHiHR5i C6h6WyMUOR ToaGG+o+/ o93+azwchp HCKa8FpS+ tP8/ZfFr+C +GajyK7hD qOdCmnC0nL unMkKDsq1 NIE9dMtCr6 KvRYLUlup ZbO39fk9Hi mcl919Kmw bdzKUlIk01 6N1G6xdJP pI5vCwKQ82 3ZgVZ12ye aAmUho9m6A NROzoi9JR nXMQVHeNk3 6bSk9PdSp B5W/hhNEKT s2/er5Ucy mJmKEy+Lkv l9+IZwPfX IDKL6Azwhz hIZKBHaHh gfy/+Hdv05 u/xEdU6Kr yNKeHYCO84 GSSI5W9RP tiL5co9i2q LXYz5dmp3 i4O/Y9eLQD fX0N+6TWc aiOt2JyfSa FuxEeuCGZ aEMZa1QkmV mWJ90PAhv WuJ6iLcdy3 pP+StE5/Z Xci29eZRg9 L1IEZ5MCB H6LR2w3Ywd 7V6cQCVBw QtXsLLTkNQ T9r+GBh8K hOPTtDO1Oa /EeXo4+Y0 SDBcWho+Fd DPeJm85LM 1+OshtAQxo SSB2IPiyY /dcI/BH7Oe CPaNQRhlB H5CGlZPvYI G0HhCm6ZY 7vGGqBo53O nUMusus1X G2QuRo7y7x u+FpIfwsb n9VuqJH7Ho PvyjG8kaN DhHeHit0bO qsPe2BdST ImSHaG+5Ub csgnDiV7j x6FSJ8q0L3 9MfKgOIPj DPQHHp+EfW /8eRL+vYW D+soknAfiS RdpXxPD8U pk9xCBcnEV f73nekRdG 1i/TEU8N4O 1YM0VfUmW 8aCoj8DNAT u+SjkOKoA NN46s+O9wb 4pxNNybCq UTTjxajSjx w1ezpSkRu Bz2FLAJ9lJ 3Pdazf5Dn WQznInw/Ui BM5dAQim/ l1j7CoyzcS KPiwGt6yK M+X2hsioqx mO+h9uW2Y 82el6tkMA/ fd7Ljez72 JLqqwSog8B HAhlNhw/4 gWT4YHPvjw G5EKqI1F+ ehDJdX53GF qXDgIfco/ qIzyn3tirk 4yKRUMoSV VUNYwTWEFV zDtajzJjo CmLZKhRRHU BFlOBvhmo S4JTX37UPH hc2M8CeKT KqFk/qCUsl QN/U9eMgL q1jp8SFcUX bDhnIIlxD nZaz3lIjl6 cjfI09ysD EoZHCjNahR lfDgdbFxt mrYYKTNYXY m76XYvf2D KhnBMAdrv4 btzdgMxyA UJQSnfUOdh DBS/yiOyR y46bnQPtOj 5ONjGYRW7 C84hhDPXEQ WjJDTeovE WoiJtbfIeH 09Ve8jw/G yT4UX7WPjq 6vfcVlQ4p pRCK9ewPNm 1UkMdZSEw NAyAWqF1f0 bd4paFdhZ lbZJgkN4ZN nQJUvxWYk 1fX8Lhl8Hm zxKuU6LEk U/NVNUuD0q sPRWw+wXB a1exIClP46 Pe2OK0Wb0 YJgOHy920D qZsagamFu dFXaFi2/hy x4xJMDRGi rCyq/hgdtE D7v2XjTBz RXnxIbzTaU M0sozCBQU gqJvO6Muyq EJkNy9hKQ P7NlKHHlqC iULY7Ry3G DNYiPseLwH yipC69r3V 0cY03EmjzV 8Qyexwx9y 4/vBo+NISy X/2kfugua /nTBfzIvJZ IyvPmnoro h+tR9OPZOO ZAxXLIUFs 2EftaXVcPf FtNMx/JdX 304no8646T kVg2ny9et j6Ngubofmu pbKTse4+0 OHA2RzPhNJ m6Uh7BRM/ C+5pnePoem HklO0xTzc yo9KUA8nDX B2LCMZU2K jCpfyhSvDW Pl7V58ATp cOSGYO0fP Tgc5Gc4CaK akUh2lmTG sviRIf9tiy Ov7QJfcgW HiGnrifN5w GNIcSa+xG TMldMXE3kb iqW+AjuRq 40LQRlluLg zKKMMD/R1 LDAbVQ5jWV BSASmZB3Z oAm95mGXqG BNG/2t2lJ yToBRsCPuP Jw9GCNlXQ CQdGOMUbiw TP5JgNJFD GuEuvIA39M YNIxGUnA1 oQUYD2svkw fLhuuoIB0 TZ2ZbkwjvF 9aOQLxZWC 8fq5IOIutO sGAEHEezf ZkgbbtP+ao PeKIw1ZPn jbnmJtZx7V 9wXWzpuHz gWjuUPc43D VrLW6ppXc f3SOWVg+S/ XP3IOAAjl lBoeeHYWoR 1lFTz4uaU xR4yWpCPNL BBn9yhmOc oPTtyvdJQB 0il24gnd2 XxnXg6eDFS LQybHWDQ3 NvPFRfiWoY kvR719XTe wD/ooKKOGC Zxd6TB89z GyEPK4KhoY i2QU8muI8 JjbEHOrbFh gNepCSHE2 qq5opSXz4x HvWGANJM3 SCPdFwIGHf FAbZQiaJc DGYBf0n/Jf LATHYcOhh CPVqfUd0k8 ohzqDtfEw HeMmBHGUIY ijDCcRqJt H+J6KGezYr F7jEGURS2 ikrdqG+y/W 31YYy3TSL /WFevCYA+r UEi1idA40 jPej4we1C+ W5yqaUyE7 mchAf2cg2B bO4gaurAw DVKgjt1ilx q6O8F/2uH d0YdD9OUoq fp8utKIPS II47EzKU+6 Zh/otwx58 e1ug1rngdG eF1293LwX xqekYMpKg2 NmxKiPnOv RcRFxyjRl4 thC2+x9yU V+fmOBvXcg 0LLEB9M7N Mse2TGQ90T PMfdOS7ad JLtC7UfOos vuh/X5kve afDV25G1HN bELZHNYQt 4nt2PjJkUB /jYg5DT7h bY7QzYoytg KkUa2mHH5 coxFgl7fON gqWxOgfqk VerM+TV1SG vrpQrRZSU KwUOUByPsF 63HY40hyd IiXWhXGmE9 7RDZK5A9x rFT95vEcfA JVEjjBehM 1acV+qVCvs wSYD9F0ZJ B8gSV9SYzV YHngLW+j3 BrVGHtBGui 5TdI5Yr8T Es0Ic4GXLT G7WioYXI/ EfYLmbtxGS L/RWrlsL+ 9ZYrsP9Jig XxmzP1YBY sXtDQDc4Te N0oYmF3L4 EnNW3xIgMN 4SIp6PqCN S8/rZAsVd/ 1qkbhvPjI hVGXNPVK/r liCdboO2q akmY/o268m E7CXK2sXc CIJ8MLNlhS tDbcXXVo7 c2wZ8bD3o0 seWvf9oCD FWBNuZL/qL VRRtVOheb 0XfRbY/ku+ tRGO/ohGq 6AbMJiW9h0 AVK2BiStK WocAxtFkVZ N0iJ0Iahg rStVL3scJ4 yiluViIc5 Ry3Ix/lChX KoTxb+GYO P5qANYP9Ic 17gGrudi/ iw0UvO80Oq 1N8mINcbA 15rCczFrTe M0uYxqh4Y /uTQtkA3/5 iDhpn1gEw jKWpPbLlat lX5Zq3m9z XAo2YMhXm/ 37pnhVSzF mtwJk7yM03 O9F+/uhCv W6EE6o9AEw VQ/gW3mq2 ZG/fxf0sfH aZsV55Yo+ cEN8bxid37 7fnhjn57L aNITpoheaN KDpoijrBc jtGqA7C9lx KFCoilYun 59gne2atcK F0PBhdIqN YQtSBgjd3/ 2Cs33CcQg kwRyIP4m/6 2PnThrRY5 B69Sj/BsDp VapUIgmI0 HgiAH3qwOd OqdcqbBPQ iGaeHoHqqI MhzaJ2YVW DohN5SoyjX f1E6TdHMj 3KpUiRiqVC s+9dx5gFW zoeKwTrYUN Zqza1Ev5E 8YMaVMzfI4 Ede8RqwSr ihigfBJ0A5 l0gxYnUsN 8F/OmtkmlZ DgWIcihxs 4tYuuzsEes MEtInt91v onf3ZI63pC AsVFsEQii DHUTHqg+bV TpbU48zGX 5aTkv+i18k 17J8Ml/Rx ojCrawQi2C i7HAyMmGI WDDgty8taf dwD6yjN7y bhutLdZU/V HiNFJFnVQ rFaIqqowXq xVKCaeTKu qkWMkrCyfF LvOYn9WLG R9MnXnVu0X 4qHpSrVRI tGjqknD4QL BJhRDVSmG +BCnjrr3nC wREVdRhud BfwNT9LvOD 0WT6yI4i3 CASIZybULk zyqLCgBGw wXrzScVSIe qiwoERWhU YsJ0ffdPDB PrJbSp39L frGDSydpwJ SR0ZAAcTY ufFRztG5oh v9FA3fdMe EEycRlgwQi v+gFKxVI2 1qCvVsII8N P97AKalvc Fn0CxesVi7 5F8ealQ4L 89ikr6FdlF DJnNnP2SU 7YnS95uLpI 5FY4SV46c GoFgSN1+MO 7+E+SLg2v PGXCd1HTFO fCFYKqIwP ahY9rINWy5 TIfx7SjNQ KjVol2Pk6B Wqsba0F+F lnVTw9Pbyt xcURknZL1 XnfXLXOg4F VRLWYA7Vu wUWf8Bv7w5 JFn6J7qpK c1LWIYSqpX CQF+44Jx/ JmiXsFyvu+ i0hWUNAXx 0PXsmKaVzC gLUoON1nR 19ZIyY30kE lVwn/xaQN SVzcffHBEK J1wj80ssO oMQGWEH1c0 6TCQQY5JR 8LPPKRrlm+ g2/wSDkvF hIBUwtM3y1 GYIgoZbxY KI5FohfSkp aLhmCJKK2 NNzCS9PVfD CWMF+PeK2 Y2XOwdN2AW kyj9yhPgp HpmEo1QvuR FCYuIT2K9 DyGIoiTsF7 36IuG++Ag kUYYD2+TVh iTcF1+Christa rcCphCpcL2 SlCGIFSSM GCMspKEASO gdvrsXoA4 7ASfKAnzxT fHX75xaZV +pdnNng9bm vKTf7VKW6 EqK8fXkS2m zBdvEjScz lKFHU636t2 YeODqVlyt vav1K6wthE ZriGkurRe wqzVkM7eFK zIkjURKhv JiyqE0Nf88 z6zYZfhG3 C1K7gVKqSZ 0g2/VSFgv QmvNoyWcFx /PNZZkn7V 1w4rFrOSD8 vxDpzc395 TxYs/OsJRq fF3BjiFnY 9YvAzdezKs ytUjavc0R 9rEzmnABh+ 8c9NCqtXc muyh835eLu 0ty02SiCV 3yAnvOM3oR OFxNlN3JZ 4ubLtbeYXJ cS3jiNQ76 CDxcCzX8/T Uw8h6UfsY OW3/ym54bL /iAxyL18q ntxCw5ykh6 wmRVuiuUo sQkYbwYBSg M84D7m1JH +80bLUkjJC PXJ/XseuD gK8lQtg1JC widBxT2sS llw5nK64Al uBlL+S4Wd rjeFtZ+Neeta dT9D7f1tp QP6LRuG2wL YwT2mUoRI PHETDw8CUi 0ZSd5Jpqc TcHzZpDCSo +0rfuIZqq MLA7evZEXa EbHC0J+rL SbCCasikPA 5GCcdFQFB AySBlkiEok wznIQRjKA nXxWptuIJq 2S2nhOXbe uyXF5dwzHv 8g09Qo6Qt o9ylJYTGjX EiECigJIw XAbUTbjxiH GdwkIHyJx z2PsbDbDmt hrBlqyFs2 SoDHokHbQw rIzeGLYTV U6L7YVHD1h nZos2qZtG VPUcPSo6ni vtUf5Ra3x 97wjKtjAkr qDIWrKAad TzcFTEKYZl WwnURcA/C 6pvqB7PdLn JkzloqG2m AsclwbUJYQ 2AdPIwNy0 ULtAyP1oqQ oVKXVAiWT JJia5SnHQV orfdW3XAG osY4C0DiOt impO4nyog posE5mG/CA TYO3Fbe9y Q4fLuD0uXQ Sa3MDzls1 NGxEjXAP2m TnWUbQ4p4 9Z1dUJZI7M ivBEY8l4G 0S1Buo9apO b1wy3jpzp JZdtvFhyOm hnD4GH9FM KVfcdvFuiD gbmZyIO83 +FBiduq/EZ XbAw2mmUI 4BiFsYSflu CuZ35wo7H fDLBEMb9Im gpLwXAQEc ZIhjrTQZUL KcrFwDEIQ QRmCCMoQlM WSlotBSnm 1LBcLQQRli JlVFGwmRJ TDKGXWclyM t8S5eAS1a MUrVBn3ZGI 8G+9IGS4m NTzCECYVUZ WM2AgBQav NNzwJzBQmF YIASuYHzl AyPxRAyfxQ WGwIuiTDD dfEJAGzzIY OAUy2B4ob SJMMpxKCZ5 VX8YX5Wv+ g44E7PrwI5 CqdWsGwSc JvEXBP+uzB Lx9cypegN 6ynFkqnznM RKtEWwgOP LlNiqlpIcQ Ua57SjUGP dkUhOK4QTa 4cxOVBuDV uV04XkXXo8 Qc87PqXGx n3pZbxc7bU S71xU+i3r xUJ4+VbKej E+y6v7rIe 9qTlI9umvc ZilnBerFe DCVj9Abhiy Kw3HER7sI ZFOf5Q5RqT VHYotP0S8 a+5Q/QaeyH vTN07DpsF 8oqSsFwvXp Q86VW2Tmh J7EbC/xR0p 78XCSbSEU A+hp/HAtF4 c0T4NTZXB Vp48Yo9S/0 rCezG/sPB ziXQ7Ibbtr Fh5RlwLb3 XiqVcTt66g 7cjquPeOI Wh/ZQ3U/so asMePrNwh RmYnuspN4f ZTDA2zIFY DyKKn0xQix M3Q01RXlQ 9GGVpujVrC ji8Hl5DgH xK2i/XB3B0 5ym6FFHb7 brTw6NDXy1 PTS7ax0pL 43nJo7GVPO MazZBbT7u WrCQnXxbqG Fd+INcTyb 7guhnpKwnV Cqln7NbmK dJST0NMdZ2 2dYZ9RfDf myzVKK4/mooney q0pLWxp56 XWfs8IHSko ZUQuqJh7q jnpYYZhY6i rtIU4Arn+ vudsiqirqX QdW5joQCj 7Xvsbstt68 dZ6bl8Acg HrU2a9+PkL cWKJf5Udw mF/trrX11M cf1jbk2hH 4+AGelLWi3 6lhPVitZJ gybC/S6OcF 6sRdokVbb UnabZleI1s bbwumnvER xiJi2VW2j7 s7EpALJ2x Xct3kpZcEJ srNGK3dMM FLWINJtHic HcMtC9jSW mHWAnfRcBx qPMchBRIc F604qylSv3 rS6omjyf5 htcBL4K6K3 KLNj7SVFg pjs0VAKtLw rQx8QSWvd miuD+saO4P 6/dPXSCLM auq4FZsd3C 9v1kGoNQE f0WS1DFeAW xp0AZelFc HPy4838cnA FHKXfC2EZ U5OUuwJ8fG JcnUfpM82 jHECrCbLwL Nk9UM4uuU ByZT+4sCcC E3wpuw/7e oQ4dt7ewR6 Dt/xX1MXC E4P3ChbN9b YU3xHiNSz OO5vjKjC3Z yZZKWozzk w0a15HEcp7 nh9nuqRvJ RuY96dLZzd W0gQnWcCW Fmv2I6hV9q DanLvUjET 8bhXlw/+Mb J6a6Glms9 kC8CC+ezay BkqO7akte Az4JUTp6G8 V+kUprgGj Q6lx4PImWO tSTcaXGMd xpgw355v1g O2NXalDvO cOfFMaonE7 hPOyQe1Vl GlHqnDaHUO 0bchKQmhD GmLF7QS9b6 MlGauQbro fblN7Ule4j B4FfMQpnj T/dJ0KJJ2d 9osiMnwPo azOQKjQ7ho 0bnJHNt+R YZKZVdGzTP SYs7SxGl1 gGKlO8ZCfW XQrYYlel1 2dv3gJTBy6 mEX2kmBuL lfn8t9qMmo OllatgWA0 tPSBbEFrbF QDJLGJJZo eJr9yewtym 8RnNoJNx4 DNHs38C9FW pvnCX5XJZ dYgMVYeLRb aYI5ha+Mooney DKCttCuAhE SetTlIx7i 2/Ii3f0Pwd 2d5igB0Kk 0Eb6nlaOGU 0kZ2oGQOW KwnHS4cMlF e3EI1VdKu xCyglruIbR RBzl4fh1U JtOPispJWw P0KXl3GSK UazHQr3ufN Pp0jPGcSh QIJYnELM6v gJtacM+uH DOzdP9fQh9 yFjRZkoH2 1COF7ni5Ln oc/Ab1DnS 1TzJIjG84N gzvaaFapF Qc+Kf60JuU FSLqCxQLR OMcK8y4kv9 74qefWWpF tfRCUyLUXb wzyyIqf5W uSlgauzg4G s3YkWeUAG 6YbYrM3JKW 7E7XtfQqV koGYAhpYSV h4RVZySg2 xHic9oQDCu SUPbIJIdn hG9eCLlACQ sSpsXWgTV F67VDevADc pBiPYEUUi xhWkSpRyad CqTQJEOSI EpWLUqoFsc EkgRRKMOF HMoSRMMyEj Y+OlctBvY r0EuAvObBU FGOlBdWYF aCh3s6Xn3w xkdHU9mkl 6lGZGoSyBb wZzvWZ1X0 QZsf5wZ4df sGELT3flz G35QXluVHV f9TrvRDTI YtHgiNJON+ +BK3Mzfw0 rozXE17oe3 Y63IcthSq jwSuRULKsi 5wLRLSeCr n+epMRE+/A gPgkQni15 7NdDqQy2zG xjpZqkX/d BE6QEK298r KTIt+PZ2F X3dU6dJCOV Z4jotVfiS iSLP9WtbqX mdYeyzZM7 TAJGSLk+VZ nOr9Nc/iv Ck0j96RJNs +WQhFkK3m UsEJYmN59S tQpE7LbVf 84hODTD8lE 8S4adMyaN aEwhyULNvi bW06U0RwY iveytCGve7 bJtuiLNvi 5Hk2wEcKRa vgvC3uB3Q UO94JKwNhV rXccQILX4 KeGBaXiieG 0sA4iXf0G p+7JmLUng5 ia0SqLEGM YRsJla/lFb scPVyyxSg dbGoSyBYJa 03YekLlXg 9Xk6T8f3nx vobnSFhLw zEsCwXjf5G nMRCEWT2t ZYUqeWUYF/ 3oYVykyjS 7LOb9RPL6E 4TXzfOQc7 E2AJmIM11j iocqBQqdm 7JClQgHnRs gT8Euwvda 2QEJfPUxX0 VlpNKeKw8 0i1LbTw29m yoerRTYWs LUUMWMb+Dg x6m2jBpul poNrURpqwm ez0o3apqd JXGz7U1XMr 6Nk6QQxfG duNfAGvVUk 7P0Ua5ujX qnBhDoFgkb /UosypG/s jUBXSy1mWQ rWiSq8pHG hh35EfteAH cM1Dxqphc YSmfDsJTB6 3UMC+9qpH YG+yukDBJL ICgYPm3nY aqU+epMRCl 9BLpFKpWa UPtuxkOVYt Y5L7Ud2PR RGmYQYT2Mz Iv+i6p6oF UqEt560d9m bDoRDoUmP PufQX5fV44 eNvqgw2wS aTbaT+FlsI hcJAcSb1k OGPURbr6GY fEA1BIjEG OlFuJkZ5tm JNWlYChDe fjtNMgUc4r YU78EMMVn P9vqRQYq6d QZkVVCoFg MIU8EEkfmk ey6ijFPLO BgF5YDOAlT ovieyCoh4 VgM3JG/RpQ II7OwWPiY liCTn542j1 mdoouNTrr /ZsGihGAxc CfbkfArOv IeYc86GLW7 93kTEO9BS 1ZMzkA3yDM A4FmfkqZb WA1zVv9GBb SZKvOoHYr FhaFYDDzpw aRdAUpEPJ qYTJGi38y6 mMKwGKUrQ Ml/HbQVoES lqSFXLAb2 vduB2mY4ZI 9tFJk6bGa cHbM4Uow6h qZu5tH66e UKuaJ/ESBX pFLSSRjKn lsu2JuCXzT tJ4ZzMk+q rfHEryE/qL xDvaXyZ8G KDzxzT1h0S pkUSItoBH lUYh8xIP0D F7qL1nTbi a/SUmiSQLE H1ehKXDqN q5RSF4yMRj W0jWjuszN TnRe/CgyLV MqjafPQpE BalCphWETp oKwAEobFd CfqL97tliO xNBsWJRsW JRsWJQyLa5 KoeWhSIJk PBYZFKuWHY jcsrtmbMC tbGF2Ao9kW 5GCfsIRhM ZhfJ7BFCRJ FJ79LvWYM O4gHjbTGVX fWOICrD0m 5kcLOqQ+m1 PpszG0dQh JJKWFFUkpY x2rjOTqy7 XwOij2Ciz6 Rwq+4rgMX LAZR/JMhvU ZVMRf9RtY a5O5lBTe9p g/HYiCNqd WnSB7WRgKr 7MSzdI0cl ViMUrpHSgp NEhgWCXlU DcNiID+kii ACKnDwrjQ 3pOlpGIpFH j4iWXHAyH bbDW6leeXq ouBXJDzp6 T38iuh/59U 0hvtdqsCv GBdBZ3+FwK 0C001XPQI 3i9PyeqJIa iC6t0UK9e DjPUDa1wXD FddbMsMrJ ahy19oLWAZ 5VE9drBk3 o0HMV7PbCo uuGKZyWXr DHM5aEfxYF 3pcG8/190 pfdwDKJSVf t/HlVpwVV rbtdeO33Am 0k7VUciQx FhjJBWpFn3 AZYlYn4Sz c2BypMYCh6 iiBWtE/ZD 1/0QoHPgnU ilFaKPDJi ERNooUfhJd ZccNoaa+T Ll+tGFPRiI pqVIc3M2p kyiRqEvWop KjM07+aop IEfkXClohn xxCf6Z5hY XPyj7rISe3 idEnwGBxI l36CmQjuvP PT9am6IxE hk3Zg3WOwX pIMydVkSK 4mgV+RKo8z 2fJqh7vsV VAivDKWS0L qpuOtrReO ABolR4Jkuc RIRiiBXZF KSSUhOlglY zzcNv26h4 yA9mX2CHLr VohyUJIRB TFV0vIpfAZ REYZFwnIm rNTlfnCgry EPdKFYjG0 auFqVXKF7j f1uOtZDfH rt7LFhVXgU lGRHekoJa 2iGQJv2wZR AyrIjPWWF dW5QSIYTbm KoJAHtXD4 GdfHB8FsLf XZMklGXVH EpHp747aQ8 4FXQ314BU krQaWoEfsV R7evaPl/i SeG3HAhgsr P4Q6qPFw4 b9h2hI/ArR b9MIPb47K 1nW7NSNO+3 JXzKln43M w2Gpt8Zazh HTOdEMr2m RwQUuuixSV E86QRPmXF nF1ULDUAKe qbAVhMKn+ QUniRQKwZO /hvvbbGfi tl2fSIfNsJ 1g5qG2Jd0 Anjg1ffTkc +4LcICueK mvQRWllvRr 1/VUk4mPc 19M7g90y7q 9Xk1IJI7R UKRhCRoMiR LabMtb6NG LRiJJl8vrL KQtFRXRyo dJeGkG/6o7 JQwLHRfHi kfrKxqPuqM ymFQhuSuM QES7SGJRcy o0a7RMQ5f diQVCHj28S FQRjuWWIa nKJO0xEGeA yQr8wMGZn HNmMdGfJ4R Avx9wXiJ8 RAsYkNNw+n QNJwOZTOT DGUFlIRhEd tJ96P7Kck FQEmkLSGlx pMQLAJHGk 3GrvzdH19H RifhW2IlX Msg1KXKnmy VGxZROill nRGPcmFYDN QjMkL41IS 5yFfmwUG+4 y7COB3mPR bOhid61vW4 XtFpDMXiu hWEYjGQYol ewaf93XN3 0sT743u0IB Cgok+FVVA CxSKVcpTSL MVvWfS1an zbG5tGWRoO 10hA6ASpi XXLdrliUG8 HD61zzzpq rdmNmQOUQq 4YSLlgJeS Cy3Wa6Ihns HP7iUS30Q 4siJMNJ2Tp zKZiPrG19 vliH6tcI8/ khZRGTmBW 9GdKmBUJVx wOFR6PmgQ 5IJykh0SHA 0PAvh/SYV eeKipv4a2s wUmbVhtOn ebJQquI8+d aRXwyngg2 sNDUHrSK/j eudWr4CbY ZLDLBNaA4b K0MFNmlzU yZDaBU6cFE eDwNpFWvh oMGjZmClxV jSqvNWK4F obNQ07d+Jg VM2WWxKM8 Ej5BUCOKPU XQeiRbU4M hqWGfCPZgq rIqbRqFmT me13xSwl4P W8nknO8EW R0gFUBHNHy Oo6IVz/7j Of6S6R4UYu MyRwqhIuC RQrQGX+n9O 6HWsIPUt4 LDMTpdPEXZ jPZzLqL7P LrT4J/WzcM Gsfta31FE rTLdZ2Fug/ fp6OC1ABT tXGovFM+LN EmUR9MxqO wQKIVPGYla g7hHzgkXJ 7bC0PHNE6G ilEz0GFxC cOqXuL7yXn l3zeIWcYu qciueKnFI4 FaluHzHdp HAqFrTqYUk ZGZqH80zL F1VSdTXtE+ 1WqoJY2eU vHoMETbqci xobC1c8LA prk55bH9kn RXH4P95Wg RhflMlzvYa Ema8Pf0Oa zNxxxQqnou 7PJyZZ7Im a7ygb0XlZU zAqEtJaV4 VRkfDsCev+ 9sKouClBb 0xj/yDVs5B CQs/CCiiF TdE/TtgUCW Pqux4nAh9 RZQGUwqZIW FNdMkgYkk QFuSbTGp8q bNvYVKHwK Pnlss3eDgJ IGFIKHYVP kZAMUHrun4 B8PreEUVg zjUKoSEip6 SVKHexE65 PRsPwGfn01 eubXQJJAa OeEtP8C/Kr OnPf5Mvw0 1u6PJECUce jYzoQiCXc aHaOdRkfhV FWkONS5GH t0zSYKgsFb kZEaGWgk6 fPwTRSZ8Mu Y3OuPeYSN zUzEOwWOki qTnEnLQXI aA4b2gtJsL kpNSHImLR yLZLRjkbR4 LBKqnuyAU nbXr76sQWl zm9RIIsbu xKlwZwvind CkRyIFUiS PVnwR3aHpi 1LxVIotPQ 5p/WooHocU mABFtt7lR TkCyvI0UAE gJaUzrJIw A4F6NViS5O uJ2V7gJBY JlYXlTwqXI mGjUyxsDT bcXmIjmuJV qKT5aySDz vD4jFPvIfV TGGgbFk30 sR4uLnt7P0 VEK9bEA4A Int7ZmsBit M+saAgVUe kEAEQEU5mq E2TuF6SIp EszM13RkNV InE9u4WxN YN4ZMwo2pk 3KLcwF8gO pTXFIGkLFQ Xfpg0isEW NpPXgsrUca 40KmGHjuv knG1zT0OOQ CeRUqRcLU ykyO3qpMvR WEudke3NC Zh+xwKQYOu sbpf7zpyD zLSNhyZekJ +7gANGcQ4 GLSmgKRFDp Fwka/VqBT 9Eu/Nlrpak JsAC5hlGi Jtr3k1PGbk fBTqaFIQo ac8VHjPnW4 dTWjHKl9P UskGXUmHDX qrg3Qkpqk S6etAtgpKX cqBpKLSUO slI8i8CIJ4 l9Hv3IWsx hZqahQKmJO QaFUxIyDI fmJDcnFpEu dTENl2VBW ESkoD0xWZL VT3wkqWPS Ct8yldVfY9 HpNKmnzOK JnYCTI6UUq RT0Vp7D7h cUojIprosa oFKYVhOS0 xn8ZlkP4iy twxTrFXin WSVthDZNhO tpN4cRDMS uMNs/yevqm FIVkSFFI2 ipbmDRsiut 6CZviuppg U/GwseW1PQ hcL200cIF Pp35W85eDg zy8ZWYHQX yRpEa37DLZ nzvzgm8ad QIlPZuGTDG QBMWGFIek kCkiskEhU0 Cjkf7KCuF HIQVSGJJhL Qlp8Y+GTB HNano+bcpx tBc3gm5Gg 1KS1wCCcOb xPr2+5npx MIH8GHcccn 41YwSZol+ sb8WeF7PyZ oD0tSEkTc tPG6oI03We 34vLdMkUP qaCf27bVbQ DC6/UdGWl vdPLp+ip54 rzgts87Nt r4U55DYwPI mZIFE6agg +yM7S4p+tp cGGhfkOqO Ni7qYNEOWP mD13zLrbQ sCO1b/n++x pffcIIRkW sgVMYFRGCp PHQBZ59HT KHg98KA3KV ORpSxcAyE v1fUQkurCU YS64D50Lu dVy4fPMa+n UvHpIUKNz h+fuZGE4ii A5jFUEUQl RcZljJRE7g BijFoCI1k BAqRrMpJsm CP22mwDfk GXlyOYSKvl +i2BGfyXV OQcREsiB8a UuRqmpPuN +loaqke9MN MkSKm/arU yMpTPTqVKF Q8GVXmdws xhs2RtVJd2 RIsUiGJGJ SSBSpdCQiD 5PKZA+Kuldip GfhpJCkRQS RSolEZNCo kfQrXjSc2N 6QCKxdgWJ ClH6rOJRSD TzZEgiJkN 3z3tZPXbpi cInhUSRKv Ooqie/PDUk q3FMKTGjq AIH1QHUQcJ c3VBpozij rkwxTwqJYm Inu8TT2Ym UsNZUmhqqu mCKQ1SI1W t6sqtuPyM7 pwqLImHrC ZV+zaqHJK2 fr+ohSUAP NFe4zkFAvn GaVM7LJNv qkozJcPB+N LeibJJQeB QJt4/JSPgE X7vZSThdV cAtDv2OnV+ NByQFCp3/ esbctPbc9M JdbdMU4IA mMlNVCnvSp VBkpLAnVY 9GQil/ThOz ycg8jcpMv 75Q9vrycsk 4CwTla4b4 cf/NcmLtnu f02UX2uY3 T+8ELcwzpe e1hbJRg0W qhTgykhTmG tGDGkAwSu azWxC69nrZ i4RQ6xkLD j840DgBr1J VYncq9LvE V9B2j4FndO NprGkShTi GjkBIEH9a2 MKQopbhew 0m/uUOeGEi NEt7rDG2g REPSRxiOvK bMalPR4Or MhDs7iwEFk dB+ViASIU kqNNSJODp3 JwaWmpCMT EwwuVi1CBv Rak4+4Z19 GZniQTp0KF c2LpbhDhE 4KEZwwV96j VGugUphqp qqSiJtCbeS ScOduMjVi yiEAL5Fqrs FB1xUIUP8 JuwjbTvphW u0VwfvDDL zwrDRfsKc6 GJ63OKChz CT1+IYkoLf vLy4AosEx abR4pETt7D 4WnL9IDqN 4Tu9F337ZK 1tohcqDUr GU8MV2BHvH CSgBygHrm s537mtXT6c j8gaAAqRd tp9DPhzIo/ kkjBH6TRX 4ySGXC0IwD MoApRW4Aj 8GkdHSvJqu QSc2MQRgK ZRMlmFQJGw Vzo+T/IK9 CSvgSefZXY oKhyKcRUo rr4xhWstkL MH/bYffCV 1DO8pfs93c FXhUCTkx9 HK7NNeyZ+l SShDITO3i giHIkzDhms 6kvo1CPHI 4ygcioSrlf DVNUft3FT xNcNHb8WD4 UienWIG36 Oguw2Y3knU JmKdKxDJC +bRxBFuC6z UqVRoeIJF ce+Nm4gyuO F0VzRKV2V F0a+IZVH0y wUWRUKla3 iuWCQEoCks kon15xNqX LqjSNcCsXm dBKmR8fWe Y5dgaoo512 VhukSKOyJ nmRRtdqZeZ /1SKSYsba f0H28ryytD Gg01Ow5T6 C6b4hQ/t9c MJTdgQ2kU pn0pRwY8bf hfK8+rz7n MKzDJwtFBN w6IqK7IKy p0zRIq+lzO XGleT+/yS vHq2W6lMkF Zwj2mJXOF fwkVN/VJF8 4KSApUNON ABzCkC8Kc0 XdkejhSFK 9ilDmf7S0a VCRcYU+Bl jx6AnIvcja vrQT08FD2 eQPQ1KSn0W UPW6OLAzE v6N6AwHRCX UonfcvnhI 8JpRNLULHt REOBbSTUk xvuksU9ih2 Hpn4Dz/ia p9xIS3Gmib fWkN05Sz4 8JuGJZgLPk cMJ2bWLpy 6BmurulAId VkWngoWu4 ktZdfbHJ4D ThNxmwYLa 01ZqaZqI2M kJ3eWx0LL KwwFLo7ews mqOvqlBG+ C2HvBhfE4U BlPfP+4NB 3BY3BK1byP GQ5NTqxvT ov8JXIp51l Aoel3+E4M b9hsW21GOz S6qSCjqr5 oQsBBFKb6O SVHYeYLXs T2ui3zjp/a CdG62wwsC cw75M4CdXw kMZiuaY4Y y4umvP5IZT SJq0T02Uv UAIdt43Q/s 4U+MQh0JR 2mU02w6QcY 7FigakinY gCu0aoR2oD eDYodBMXZ 4bwbxtS8XU ycpXS11fr xhUKTSPdXb Z2Y2iDBT0 RIQ3fSe8LJ aDoMiVVZN iIvhhCr2lV f1XsSJAJS HUzGCdtAeQ G89YRuYM3 suTlB45HAZ X95txnoWJ zpDiQHISPe T35b2jHKJ ZjPPuy0Db2 XMRut3iqs K9FTUSBny2 ZnSZ0RjOs kqX/FIRLUl hReUL6g6J RHLHepEKp0 r1HvRMffS VjuBbSTUXL blRu2PxA0 eeiDw1B0mt CRCPVPlLq v0Xn0wPsK0 EtaSsHGPr 2Iboc3GK0Q DcaKXlhWS xRHPR9NKsY kM7mJsS09 ME32izwTYz EcrJGlTPV PVJgllJuyV Ip65FYNOw +SFJbVyGRO yd6mFWXoo 3liQ0sMhXX y4QcqZpgN vVQWq1X1Gb lQQL7bqZH QjZ8RMxI5c DBs5AjBGD NjPhEMSzrn lExCW8mMN khODCjiZ1J h3Gv1Awf1 fxSQy9oj7H bh3LS09zI 58E/+jV1DU riHHepaMG mVcEpmoUWZ kv9g7hp9Y debDISnV0o NcWqNdfFz cx4rELu7zT qfMNf/xzY y0IqcYiIkz 4/D/8eNw3 Merry/4njcN7 H4f/jx+GM 4wDGcXjxPg 0tesDn1Xl yCYn4NTQ4C eA//CCA+x vIx2ApERiP 4D/8AIDo/ 7UrXbq100O OzoN23+1F Rn26xP/+ol r6QcxD6av bpqA2djsUa ZdnNrnC6N 4JiN/ga53p U8mgD03nw sWsjWxgW7U y2FZp7BXn b5PKIh0piu Bm6h5l9wG m9UEgQjNIM jhaLwfmSd Elma/Bq8Re8 29i9KRz3K WKI1DDkktS +oE5IrIK7 G7za+wXH7l bzjt+8+OS P5+2aSH/9w 4adi16i3g 6nf+ftvEwG Jvp7+mn1+ u2Lf/r67uP 9P7/+76hw PfhS+RQuxe LTZXfRQ93 dLe0siQE68 jNH0oj4DP DK//Prb77/ deu7vB/Pb H5c7/muzV8 /0/ourr38 wpDkkDCW7g /3vivjn4h 3dR7Dm32sj bPyly8/+5 +WYb1vGvCI evNwnaFfH R2SnxlV67l 02emoKi4P p5skm3lOpd oGU79o2sq /TKUvz+vYv vh6tKPTC9 +Xdy4u2LTy u9/97vbV4 +P72/d3H+9 uf/3b3ZuH jz//y+3h3c f79z++v/9 49/Dg6h2o6 d3Pt2/vb3 ff/3T//sP9 m59vdz/8c P/dx/v0Ofv J82Uc6mL6 s4aiiy1l4s 3tw+39X37 ++Ik1v65qT 81hPu67wM w2eh8lP8c/ 4albD+9+u Hv/6uqiv2m u/nx/+9u7 7++fCt4+vH u+2J2CgUp 47uWHH++/e /dm0srm79 vdt++uvjwd 6UJs6tFb3 ePt6bB/enh 86vEXn//r 5u2ua7t0y9 mgW259861 j2x/v3j98e Ec35C39Kp DJo5tz6/7x 3cN3d2+ez tY3D39+6vD zD12n7yed ZTmKybU+Pe ptY3v89Wz Xt29/vn129 /7jw+3zu7 c/Pt5uf/rD LT7HZ7/x1 yhamw3d99+ 9ffX+8aeH 7+/dl5xhr5 57pY/8T/f v3/o20zpou x/+kk6G73 R/fp//6esv y4gGhuMH1 6R6okf2m/2 2CcyIh1CY bfcn+dy2/6 D9kMyw3vQ b/qL0kz/W2 2VuejrBv/ yBhGdi4cR4 un2G6+e6J uR11DCzZi6 9+sP2Wp2h v336wH//86 e/+mBvx/z qUG5PM3Qnj 6rbG6xpoe vj++xzkZcn 98F+S9i45 lXK0++It59 4pX39axWG q6BNZtOhjt f/bo0UIjG ZUUuP/7td8 GYhd66JEI d/+1/01VZd 9Kdu/f0Kr 386oeVagHC l28KbnYX7 vr9/GrP+H0 D+ujsKZW5 wl2NlIRKqA oPtNL0ibw a0DDKeo4Ic Ril8C9R6d GUvUGFnZS9 NZWRpYUJv eFswIDAgNz kyIDYxMl0 lRPLyAZ40K DUgMCBSL0 NvbnRlbnRz IDQgMCBSL 8Zdw977mzN cbei3A2Md xcK8DY6AVt AzIDAgUi9 GMiAyIDAgU e0TDGZjKU AgUj4+L1By g6QMIMMfL z2BTDCkP5G zaKWbZ2fe YWdlQiAvSW 2aF3VFOR0 JbWFnZUldP j4+Pgplbm RvYmoKMyAw PK0benn6B X2XfTTwH3D mxiPtH9Sk xPchZC5XsF YlHE7RPKF iVd7jnL7NM Mc9QDIgC5 FyBt4wHN1H bmNvZGluZ d1YyK2YjfN aOH8js4Qe bmc+Pgplbm RvYmoKMSA aYK9xwkt4R Z5SjDCxP8 WjpfBvS2Pa pTfmBK0Jf KFvZQ2CTJR tNs2ooM4G SUa1HORtW7 LmCD5vg7D tlgaiM0eqL V1ngWKdW5 2caQ8qRc2H SJ7bu6IhZ jIgMCBvYmo KPDwvVHlw QN9Iz710X6 E1OeI1aVO vVHlwZTEvQ mFzZUZvbn LxN863yabc tp8LjhYzH NhfLt9KcF8 VbpQlRQ5a c1Nqzqz+Pg plbmRvYmo UVIUgHP0hc lf8CP2VpK AkP9CnE9Au L9hRCPGdY G2cLqJnK4y pZHNbNiAw ESZyK9YqiE 50IDE+Pgp lbmRvYmoKN vGxBP8mqr s1CU8ESBxt qhQ1ATJaH v9RtKDqH2K tvLUxb2s+ PgplbmRvYm oKOCAwIG9 wcls6FF6St XRsZShDYX EpdZ5mY1Gb dmVyIDEyL UueJROtA4m leXdvcmRz KEVwaXBoYW 55IEVDRyA sOu2YYATvU RJ2xVM3VD 7VwyMupW1x KEVwaXBoY G45KKOjydZ pbyBTZXJ2 NMThK6Kdd2 Y2H9XzPTc BWDi2Z4ebw mIkGG4fNx YgYnkgMVQz QDNtZ5YzQ GI2gB4pSGJ 0ZShEOjIw MjAwOTAxMT AxOTEzLTA 0JzAwJykvQ AF8xG8nXR FraQKsHC68 IENhcmRpb oQNICX9MSC tV8W5Rcha C2BdX3VnRO lvIFNlcnZ yniChRs9IJ JFiCK4Jt9 REYXRlKEQ6 IcWqPST7O KKsWDL1EAG tMDQnMDAn KT4+CmVuZG 6ihyi3rtZ mCjAgOQowM DAwMDAwMD ZtKMW9RIP0 IGYgCjAwM VEbCgs2FzH gMDAwMDAg biAKMDAwMD V2Uvm4TrE wMDAwMCBuI AowMDAwMD g0RaarSXIk UHXlZT4lW jAwMDAwMDA wMTUgMDAw MDAgbiAKMD ShFDP8HQP 0OCAwMDAwM CBuIAowMD VsSWq1JnZ2 IDAwMDAwI X5cGhGkRHG wNzgxMTEg MDAwMDAgbi AKMDAwMDA 5VSE7VzPjP DAwMCBuIA k2iuOwvNWl Rkc1X5Etp nSyJR2TsfZ vIDggMCBS K5yHTNs4XK HqDpD2FHz wZDJiMDdhY nT1GoV1AS hmZmJmNzBm NjA+PGQ2M SEeBvN1Kxd lOTliMzAz ZWExNjRhZD MaFLF1HuI 0Xl4tDs6lz XD0EJMfRy 4+MfN8XJI7 tBWbZbf2T KD1HbflGLU PRgo= ID Date Data Source [id number] 11/11/2019 07:41:00 PM EDT [facility] [id number] [facility] Patient: SYD LESTER RA Age: 29 years [...] edema x1 day. Patient was seen at [facility] and was admitted for pneumonia fo r [...] selected or recorded.. Surgical history: Gastric bypass ([id number]) on 03/13/2009 at 18 Years.. Family history: [...] Therapy Room air . General: No ac rosebud distress, no verbal or exertional dyspnea noted, [...] 43.2 % Lymph Auto 46.2 % HI [place] Auto 7.8 % Eos Auto 2.5 % Baso A uto 0.3 % Neut Absolute 2.1 x10(3)/mcL Lymph Absolute 2.2 x10(3)/mcL [place] Abso lute 0.4 x10(3)/mcL Eos Absolute 0.1 [...] unremarkable.IMPRESSION:Normal chest rad iograph.Thank you for allowing [facility] to participate in the evaluation [...] on November 11, 2019 16:23 EDTEncounter info: [id number] , [facility], Emergency Room, 11/11/2019 - . Radiology results: [...] thrombosis, both lower extremities.Thank you for allowing [facility] 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 Unremarkable CTA of the thoracic and abdominal [...] et al. Radiology 2017 284:1, 228-243. http://pubs.rsna.org/doi/abs/10.1148/rad iol.05379047596. Multiple groundglass opacities in the right upper lobe and ri ght lower lobe, nonspecific. Infectious etiology not excluded.4. Constipation.5. Postsurgical changes of the bowel.Thank you for allowing [facility] to participate in the evaluation of this patient.Signature Line Final * Dictated: Dimitrios Costa MD11/11/19 17:31Signed: Finesse Costa MD 11/11/19 17:45Transcribed by: JJCLeona document has an imageResul t type: CTA Chest Abdomen PelvisResult date: November 11, 2019 17:23 EDTResult status: Auth (Verified)Result title: CTA Chest Abdomen PelvisPerformed by: Dimitrios Costa MD on November 11, 2019 17:31 EDTVerified by: Dimitrios Costa MD on November 11, 2019 17:45 EDTEncounter info: [id number], [facility], Emergency Room, 11/11/2019 - . Reexamination/ Reevaluation [...] Diagnosis Bilateral lower extre mity edema - [id number] R60.0, Discharge Plan Condition: Improved. Disposition: Disch [...] Supporting Document(s ) ID Date Data Source [id number] 10/17/2019 08:14:00 PM EDT [facility] Name Value Range Interpretation Code Description Data Grace rce(s) Supporting Document(s ) SARS-CoV-2 [facility] RNA Resp Ql LAXMI+probe This lab was ordered by [facility] a nd reported by [facility]. Procedure Social History Code Duration Value Status Description Data Source(s ) Smoking 11/11/2019 Never smoked completed Never smoked Bk Jovel alth - 02:59:25 PM EDT tobacco tobacco (finding) [facility] (finding) Center Vital Signs ID Date Data Source UNK Name Value Range Interpretation Code Description Data Source(s) Mean blood 82 mm[Hg] 82 mm[Hg] [facility] pressure by - [facility] Oxygen therapy Bk Jovel alth [Minimum Data - [place] Set] [facility] Heart rate 90 bpm 60-100 bpm Normal (applies to 90 bpm [employer] [facility] non-numeric results) - [facility] Respiratory rate 14 br/min 14-20 Normal (applies to 14 br/min [facility] br/min non-numeric results) - [facility] Diastolic blood 70 mm[Hg] 60-90 mmHg Normal (applies to 70 mm[Hg] [facility] pressure non-numeric results) - [facility] Systolic blood 106 mm[Hg] 90-130 mmHg Normal (applies to 106 mm[Hg] [facility] pressure non-numeric results) - [facility] Oxygen saturation 100 % 94-100 % Normal (applies to 100 % [facility] in Blood non-numeric results) - [facility] by [facility] Pulse oximetry [place] Mean blood 81 mm[Hg] 81 mm[Hg] [facility] pressure by - [facility] Center Oxygen therapy [facility] [Minimum Data - [place] [facility]] [facility] Center Heart rate 89 bpm 60-100 bpm Normal (applies to 89 bpm [facility] non-numeric results) - [facility] Respiratory rate 14 br/min 14-20 Normal (applies to 14 br/min [facility] br/min non-numeric results) - [facility] Diastolic blood 63 mm[Hg] 60-90 mmHg Normal (applies to 63 mm[Hg] [facility] pressure non-numeric results) - [facility] Systolic blood 116 mm[Hg] 90-130 mmHg Normal (applies to 116 mm[Hg] [facility] pressure non-numeric results) - [facility] Oxygen saturation 99 % 94-100 % Normal (applies to 99 % [facility] in Blood non-numeric results) - [facility] hospital [facility] by [facility] Pulse oximetry Center Heart rate 92 bpm 60-100 bpm Normal (applies to 92 bpm [facility] non-numeric results) - [facility] Mean blood 91 mm[Hg] 91 mm[Hg] [facility] pressure by - [facility] Center Oxygen therapy [facility] [Minimum Data - [place] Set] [facility] Center Respiratory rate 15 br/min 14-20 Normal (applies to 15 br/min [facility] br/min non-numeric results) - [facility] Diastolic blood 75 mm[Hg] 60-90 mmHg Normal (applies to 75 mm[Hg] [facility] pressure non-numeric results) - [facility] Systolic blood 122 mm[Hg] 90-130 mmHg Normal (applies to 122 mm[Hg] [facility] pressure non-numeric results) - [facility] Oxygen saturation 100 % 94-100 % Normal (applies to 100 % [facility] in Blood non-numeric results) - [facility] hospital [facility] by [facility] Pulse oximetry Center Body mass index 27.7 kg/m2 27.7 kg/m2 [facility] (BMI) [Ratio] - [facility] Body weight 73.6 kg 73.6 kg [facility] Measured - [facility] Body height 163 cm 163 cm [facility] - [facility] Body mass index 27.7 kg/m2 27.7 kg/m2 [facility] vickie (BMI) [Ratio] - [facility] Oral temperature 98.3 [degF] 96.4-99.1 Normal (applies to 98.3 [degF ] [employer] DegF non-numeric results) - [facility] Oral temperature 98.3 [degF] 96.4-99.1 Normal (applies to 98.3 [degF ] [employer] DegF non-numeric results) - [facility] Patient Treatment Plan of Care Planned Activity Planned Date Details Description Data Source (s) Methocarbamol 750 MG Oral 11/11/2019 06:11:00 [employer] - Tablet PM EDT [facility]
[2019-12-26 14:54] VITALS: BMI 28.1
[2019-12-26] MEDS ORDERED: MAGNESIUM CITRATE 300 ML BOTTLE PO PRN (14:55)
[2019-12-26] MEDS ORDERED: MAGNESIUM HYDROX 2400MG/30ML ORAL SUSPENSION 30 ML CUP PO PRN (14:55)
[2019-12-26] MEDS ORDERED: ACETAMINOPHEN 325 MG TABLET (FP) PO PRN (14:55)
[2019-12-26] MEDS ORDERED: MAG HYDROX/AL HYDROX/SIMETH 30 ML UNIT-DOSE CUP PO PRN (14:55)
[2019-12-26] MEDS ORDERED: P-EPHED 60MG/TRIPROLIDI 2.5MG TABLET PO PRN (14:55)
[2019-12-26] MEDS ORDERED: guaiFENesin 200 MG/10 ML 10 ML UNIT-DOSE CUPS PO PRN (14:55)
[2019-12-26] MEDS ORDERED: NICOTINE POLACRILEX 2 MG GUM BC PRN (14:55)
[2019-12-26] MEDS ORDERED: LOPERAMIDE HCL 2 MG CAPSULE PO PRN (14:55)
[2019-12-26] MEDS ORDERED: HYDROCHLOROTHIAZIDE 25 MG TABLET (FP) PO ONE (14:59)
[2019-12-26] MEDS: diazePAM 5 MG TABLET PO PRN ×2 (17:11→21:18)
[2019-12-26] MEDS: PRENATAL VITAMINS W/ FOLIC ACID TABLET (FP) PO SCH (17:11)
[2019-12-26] MEDS: hydrOXYzine PAMOATE 25 MG CAPSULE (FP) PO PRN ×2 (17:11→21:17)
[2019-12-26] MEDS ORDERED: CLINDAMYCIN HCL 150 MG CAPSULE (FP) PO ONE (17:52)
[2019-12-26] MEDS ORDERED: hydrOXYzine PAMOATE 25 MG CAPSULE (FP) PO SCH (18:00)
--- NOTE | 2019-12-26 19:36 | PN ---
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 Pt complaining of moderate-severe pain on bilateral inner thighs x 2 -3 days. No other symptoms noted. No skin discoloration in region, no vaginal pain/abnormal discharge/abnormal bleeding. Pt requesting increase of maintenance methadone dose. PE A&OX3 in mild distress with complaints of lower extremity swelling, body aches, diarrhea, etc. CV: RRR, normal s1, s2 Pulm: CTAB Ext: +3 pitting edema, poor pulses palpable, chronic hyperpigmentary changes of her lower extremities (as per earlier examination) Pt with nodular changes on bilateral inner thighs approaching gluteal region, tender to palpation; possibly consistent with lymphadenopathy (multiple small LN 3-4 mm in DM). Pt also with chronic palpable lymph nodes in R axilla. A/P tylenol or ibuprofen prn for pain control nursing staff to monitor closely pt to be evaluated by medical staff in the AM
[2019-12-26] MEDS: THIAMINE HCL 100 MG TABLET (FP) PO SCH (21:15)
[2019-12-26] MEDS: SUVOREXANT 10 MG TABLET PO PRN (21:18)
[2019-12-26] MEDS: MELATONIN 5 MG TABLETS PO SCH (21:19)
[2019-12-27] MEDS: diazePAM 5 MG TABLET PO PRN ×3 (04:20→14:50)
[2019-12-27] MEDS ORDERED: METHADONE HCL 10 MG TABLET ONE (05:41)
[2019-12-27] MEDS ORDERED: METHADONE HCL 40 MG DISPERSABLE TABLET ONE (05:42)
[2019-12-27] MEDS ORDERED: METHADONE HCL 10 MG TABLET PO SCH (06:00)
[2019-12-27] MEDS: METHADONE 40 MG, METHADONE 20 MG PO SCH (07:06)
[2019-12-27] MEDS: PRENATAL VITAMINS W/ FOLIC ACID TABLET (FP) PO SCH (10:08)
[2019-12-27] MEDS: hydrOXYzine PAMOATE 25 MG CAPSULE (FP) PO PRN ×3 (10:12→21:47)
--- NOTE | 2019-12-27 12:46 | PN ---
[facility] Progress Note (SOAP) Subjective: swelling of left leg with pain Objective: 12/27/19 12:47 Vital Signs Temperature 98 F 12/27/19 07:00 Pulse Rate 83 12/27/19 07:00 Respiratory Rate 20 12/27/19 07:00 Blood Pressure 113/77 12/27/19 07:00 O2 Sat by Pulse Oximetry (%) 95 12/27/19 07:00 repeat pulse ox 97% RA left ankle / leg swelling, + edema lungs clear to a/p Assessment: 12/27/19 13:11 left ankle /leg swelliing / cellulitis 12/27/19 13:16 Plan: leg elevation cont. cleocin warm compresses tylenol for pain prn .
[2019-12-27 14:39] LABS: HEMATOCRIT 30.1 % (32.4-45.2); HEMOGLOBIN 9.9 GM/dL (10.7-15.3); MCH 29.8 pg (25.7-33.7); MCHC 32.7 g/dl (32.0-36.0); MEAN CELL VOLUME 90.9 fl (80-96); MEAN PLT VOLUME 7.1 fl (7.5-11.1); PLATELET COUNT 435 K/MM3 (134-434); RBC 3.32 M/mm3 (3.60-5.2); RDW 16.8 % (11.6-15.6); WHITE BLOOD COUNT 8.2 K/mm3 (4.0-10.0)
[2019-12-27] MEDS: IBUPROFEN 400 MG TABLET (FP) PO PRN (14:52)
[2019-12-27] MEDS ORDERED: MASKS NR ONE (17:54)
[2019-12-27] MEDS: THIAMINE HCL 100 MG TABLET (FP) PO SCH (21:47)
[2019-12-27] MEDS: SUVOREXANT 10 MG TABLET PO PRN (21:48)
[2019-12-27] MEDS: MELATONIN 5 MG TABLETS PO SCH (21:48)
[2019-12-28] MEDS ORDERED: METHADONE HCL 10 MG TABLET ONE (03:21)
[2019-12-28] MEDS ORDERED: METHADONE HCL 40 MG DISPERSABLE TABLET ONE (03:22)
[2019-12-28] MEDS: METHADONE 40 MG, METHADONE 20 MG PO SCH (06:25)
[2019-12-28] MEDS: diazePAM 5 MG TABLET PO PRN ×4 (06:26→18:39)
[2019-12-28] MEDS: PRENATAL VITAMINS W/ FOLIC ACID TABLET (FP) PO SCH (09:49)
[2019-12-28] MEDS: hydrOXYzine PAMOATE 25 MG CAPSULE (FP) PO PRN (13:27)
--- NOTE | 2019-12-28 15:48 | PN ---
[facility] Progress Note Note: Patient is referred for left leg swelling. She is examined in bed, noted with gross swelling as reported. 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 She reports prior to coming to [facility], she was treated at [facility] for same at which time Doppler studies was negative. She was admitted to detox on 12/22, she completed detox and started rehab on 12/25. She was started on cleocin 150mg PO TID on 12/24 but only received one day's worth. She denies SOB, CP, palpitation. She reports generalized pain which is chronic. PE Lungs: Clear in all small CVS:S1S2,RR Extremities: Left leg/ankle swelling to mid calf, painful to touch, warm A/P-Left leg cellulitis Plan-Cleocin 300mg TID x 7 days leg elevation Pain management as ordered Staff will continue to monitor.
[2019-12-28] MEDS ORDERED: MASKS NR ONE (17:40)
--- NOTE | 2019-12-28 18:06 | PN ---
[facility] Progress Note Note: Patient was seen earlier for left leg swelling and pain, she refused to have Doppler studies in the ED because she had one recently at [facility], she is now requesting to go to the ED. Patient is receiving treatment for left leg cellulitis. Report given to Dr. Bliss.
[2019-12-28] MEDS: CLINDAMYCIN HCL 150 MG CAPSULE (FP) PO SCH ×2 (18:33→23:56)
[2019-12-28] MEDS: MELATONIN 5 MG TABLETS PO SCH (23:56)
[2019-12-28] MEDS: THIAMINE HCL 100 MG TABLET (FP) PO SCH (23:57)
[2019-12-29] MEDS: IBUPROFEN 400 MG TABLET (FP) PO PRN (02:51)
[2019-12-29] MEDS: diazePAM 5 MG TABLET PO PRN ×3 (02:51→12:15)
[2019-12-29] MEDS: SUVOREXANT 10 MG TABLET PO PRN (02:51)
[2019-12-29] MEDS ORDERED: METHADONE HCL 10 MG TABLET ONE (03:45)
[2019-12-29] MEDS ORDERED: METHADONE HCL 40 MG DISPERSABLE TABLET ONE (03:46)
[2019-12-29 06:53] VITALS: BP 108/76; PULSE 83; TEMP 97.8
[2019-12-29] MEDS: METHADONE 40 MG, METHADONE 20 MG PO SCH (07:20)
[2019-12-29] MEDS: CLINDAMYCIN HCL 150 MG CAPSULE (FP) PO SCH ×2 (07:21→15:14)
[2019-12-29] MEDS: PRENATAL VITAMINS W/ FOLIC ACID TABLET (FP) PO SCH (10:24)
[2019-12-29] MEDS: hydrOXYzine PAMOATE 25 MG CAPSULE (FP) PO PRN (10:27)
--- NOTE | 2019-12-29 19:50 | DS ---
[facility] Rehab Discharge Summary - [facility] Rehab Discharge Summary Admission Date: 12/26/19 Discharge Date: 12/29/19 - History Additional Comments: Patient not examined by music writer - Discharge Physical Exam Vital Signs: Vital Signs Temperature 97.8 F 12/29/19 06:52 Pulse Rate 83 12/29/19 06:52 Respiratory Rate 18 12/29/19 06:52 Blood Pressure 108/76 12/29/19 06:52 O2 Sat by Pulse Oximetry (%) 100 12/29/19 06:52 Pertinent Admission Physical Exam Findings: Laboratory 12/26/19 12/27/19 08:30 08:30 WBC 8.2 K/mm3 K/mm3 (4.0-10.0) RBC 3.32 M/mm3 L M/mm3 (3.60-5.2) Hgb 9.9 GM/dL L GM/dL (10.7-15.3) Hct 30.1 % L % (32.4-45.2) MCV 90.9 fl fl (80-96) MCH 29.8 pg pg (25.7-33.7) MCHC 32.7 g/dl g/dl (32.0-36.0) RDW 16.8 % H % (11.6-15.6) Plt Count 435 K/MM3 H K/MM3 (134-434) MPV 7.1 fl L fl (7.5-11.1) HCV Quantitation Hcv not detected IU/mL IU/mL (.) HCV RNA log copies/mL TNP - Medication Discharge Medications: Ambulatory Orders Methadone [Dolophine -] 50 mg PO DAILY 12/26/19 - Discharge Instructions Diet, activity, other medical instructions: Diet: Activity: Other medical instructions: - Diagnosis (1) Anxiety disorder Status: Chronic (2) Cellulitis of left leg Status: Chronic (3) Uncomplicated opioid dependence Status: Chronic - AMA Did Patient Leave Against Medical Advice: No Additional Comments: Discharged administratively by weekend exchange administrator, music writer not informed of discharge until after patient left facility
[2019-12-29] MEDS ORDERED: SUVOREXANT 10 MG TABLET PO PRN (22:00)
== END 2019-12-29 15:45 | disposition left against medical advice (07) | DRG 772 ==
LOC: YASAS 14:37 → Y3E 14:47
PROVIDERS: ADMIT Allergy & Immunology; ATTEND Allergy & Immunology
PROC: HZ42ZZZ Group Counseling for Substance Abuse Treatment, Cognitive-Behavioral (ICD-10-PCS; principal; 2019-12-26)
DX: F11.20 Opioid dependence, uncomplicated (principal); F12.10 Cannabis abuse, uncomplicated; F19.282 Other psychoactive substance dependence with psychoactive substance-induced sleep disorder; F19.280 Other psychoactive substance dependence with psychoactive substance-induced anxiety disorder; F41.9 Anxiety disorder, unspecified; L03.116 Cellulitis of left lower limb; I73.9 Peripheral vascular disease, unspecified; M54.5 Low back pain; G89.29 Other chronic pain; Z98.84 Bariatric surgery status; Z91.018 Allergy to other foods; Z91.010 Allergy to peanuts
CPT/HCPCS: 36415; 85027; 87522

== ENCOUNTER 2019-12-28 19:27 | Emergency (ER) | payer OTHER ==
[2019-12-28 19:39] VITALS: BP 113/42; PULSE 100; TEMP 98.2; BMI 28.1
--- NOTE | 2019-12-28 19:49 | PDOC ---
Attending Attestation - Resident Resident Name: Aly rFanco - ED Attending Attestation I have performed the following: I have examined & evaluated the patient, The case was reviewed & discussed with the resident, I agree w/resident's findings & plan - HPI HPI: 12/28/19 21:00 Pt comes with leg pain; r/o DVT - Physicial Exam PE: 12/28/19 21:14 Pt has lymph nodes in her arm pits and groin. Pt has swollen left leg>> right leg Pt is able to ambulate. Pt has no abd pain and no flank pain SHe has no rashes Pt has normal heart and lungs Neuro intact. - Medical Decision Making 12/28/19 21:41 Pt has no fever or chills She mentions that at times she gets night sweats Pt has no weight loss and states that she was 360 lbs>> down to 165 after gastric bypass 10 years ago. Pt states ther her menses is 12 days late She comes here for leg swelling; will have DVT; we had a long talk about the need for PMD follow up, as she has lymphadenopathy and apparently she suffers with proteinuria. 12/28/19 21:59 Awaiting dvt results. Pt is eating hospital issued snacks. 12/28/19 23:54 Patient Name: JIGNA LESTER THIS IS A PRELIMINARY REPORT DATE OF SERVICE: 2019-12-28 22:15:15 IMAGES: 40 EXAM: Ultrasound left lower extremity venous duplex and ultrasound right lower extremity venous duplex HISTORY: 29-year-old female assess for a deep vein thrombus COMPARISON: None. FINDINGS: The left and right common femoral vein and proximal greater saphenous vein and profunda femoral vein and femoral vein and popliteal vein and posterior tibial vein have normal compressibility and normal color flow and normal spectral Doppler waveforms. IMPRESSION: No evidence of a left or right lower extremity deep vein thrombus. 12/28/19 23:55 Stable to go back to [facility] Discharge - Discharge Information Problems reviewed: Yes Clinical Impression/Diagnosis: Lower extremity edema Condition: Good Disposition: HOME - Follow up/Referral - Patient Discharge Instructions Patient Printed Discharge Instructions: DI for Peripheral Edema -- Bilateral Additional Instructions: You came to the ED for lower leg edema. This is most likely due to venous insufficiency. At the ED we did a doppler of your lower ext which showed no clots. We also did a test which was negative. We also gave you methadone for the pain. Please follow up with your Primary care physician in the next few days who we referred you to. Please return to the ED for: - any erythema or fevers - worsening pain - unable to feel your lower ext - shortness of breath or chest pain For any emergent symptoms please call for medical help right away. - Post Discharge Activity
--- OUTSIDE RECORDS SUMMARY | 2019-12-28 19:58 | XMS ---
:1990 Author Organization [facility] Care Team Providers Name [...] is protected by Article 27-F of the [facility] Public Health law. If you continue you may haveaccess to information: Regarding HIV / AIDS; Provided by facilities licensed or operated by the [facility] Office of Mental Health; or Provided by the [facility] Office for People With Developmental Disabilities. If such information is present, then the following [facility] mandated warning applies: This information has been [...] law may result in a fine or group home sentence or both. A general authorization for the release of medical or other information is NOT sufficient authorization for further disclosure. Allergies and Adverse Reactions Type Description Substance Reaction Status Data Source(s ) Drug allergy No Known Allergies No Known Allergies [facility] Encounters Encounter Providers Location Date Indications Data Source(s ) Emergency Attender: 11/11/2019 [facility] th - ERAttender: Ivett 01:54:19 PM EDT [facility] PAAdmitter: - 11/11/2019 Leonardo CALVERT 06:26:00 PM EDT Patient discharged. Emergency Attender: Joe Carlin 11/10/2019 02:05:00 [facility] ERAdmitter: Joe 07:31:00 PM EDT Raegan COOL Patient discharged. Medications Medication Brand Start Product Dose Route Administrative Pharmacy [facility] Indications Reaction Description Data Name Date Form Instructions Instructions Source(s) Methocarbam Robaxi .0 Oral Nuv ance ol 750 MG n-750 2020 mg 750 mg, = 1 tab, Oral, TID, X 5 day(s), # 15 tab, 0 Refill(s), Pharmacy: [facility], 1 tab Oral TID,x5 day(s), 163, 11/11/19 14:54:00 EDT, Height/Length Measured, cm, 73.6, 11/11/19 14:54:00 EDT, Clinical Weight, kg Health - Oral Tablet oral 06:11: [place] Robaxin-750 tablet 00 PM Hospi mahesh oral tablet EDT Center Insurance Providers Payer name Policy type Policy ID Covered Covered republican's Policy P zita / Coverage republican ID relationship to [employer] ormation type nova METRO PLUS [id number] SP [id number] [employer] [id number] SP [id number] METROPLUS BEACON [id number] SP [id number] METROPLUS COMM [id number] Self [id number] COMM [id number] Self [id number] Results ID Date Data Source [id number] 12/23/2019 10:30:00 AM EDT [facility] Name Value Range Interpretation Description Data Sup porting Code Source(s) Document(s ) SARS [facility] coronavirus 2 RNA This lab was ordered by [facility] Bill Inter and reported by [facility]. ID Date Data Source [id number] 11/30/2019 06:14:00 AM EDT [facility] Name Value Range Interpretation Code Description Data Grace rce(s) Supporting Document(s ) SARS-CoV-2 [facility] RNA Resp Ql LAXMI+probe This lab was ordered by Fabian and o rted by [facility]. ID Date Data Source [id number] 11/11/2019 05:45:00 PM EDT [facility] Patient Name: ABHINAV LESTER: Erich [id number] Computed TomographyACCESSION EXAM DATE/TIME PROCEDURE ORDERING PROVIDER [id number] 11/11/2019 17:23 EDT CTA Chest Abdomen Ivett [...] s with butterfly vertebra at T6 and W31TWEIFMNROY:1. Unremarkable CTA of the thoracic and abdominal [...] From the Fleischn er Society 2017. Kalin Garzon et al. Radiology 2017 284:1, 228-243.http://pubs.rsna.org/doi/abs/10. [email or web address]. Multiple groundglass opacities in the right upper lobe and ri ght lower lobe, nonspecific. Infectious etiology not excluded.4. Constipation.5. Postsurgical changes of the bowel.Thank you for allowing [facility] to participate in the evaluation of this patient. Final Dictated: Dimitrios Costa MD11/11/19 17:31Signed: Dimitrios Costa MD 11/11/19 17:4 5Transcribed by: JULIANNA Name Value Range Interpretation Code Description Data Grace rce(s) Supporting Document(s ) ID Date Data Source [id number] 11/11/2019 04:23:00 PM EDT [facility] Patient Name: JAZMIN LESTERN: [id number] General DiagnosticACCESSION EXAM DATE/TIME PROCEDURE ORDERING PROVIDER [id number] 11/11/2019 16:17 EDT XR Chest Portable Ivett [...] unremarkable.IMPRESSION:Normal chest rad iograph.Thank you for allowing [facility] to participate in the evaluation of this patient. Final Dictated: Jose Luis Chino MD 0 11/11/19 16:22Signed: Jose Luis Chino MD 11/11/19 16:23Transcribed by: LYNN Name Value Range Interpretation Code Description Data Grace rce(s) Supporting Document(s ) ID Date Data Source [id number] 11/17/2019 12:00:00 AM EDT [facility] 1990 [phone] Microbiology - Blood CulturesPROCEDURE: Culture,Blood RCE: Blood [...] Supporting Document(s ) ID Date Data Source [id number] 11/11/2019 04:17:00 PM EDT [facility] Name Value Range Interpretation Description Data Sup porting Code Source(s) Document(s ) Lactic 0.8 0.9-2.0 [place] Acid Lvl mmol/L [facility] ID Date Data Source [id number] 11/11/2019 04:25:00 PM EDT [facility] UA Microscopic added by Discern joshua Dawson e to an Abnormal Macroscopic Result. Name Value Range Interpretation Description Data Sup porting Code Source(s) Document(s ) UA WBC None Seen NO [facility] UA RBC None Seen NO [facility] UA Bacteria None Seen AB [facility] UA Epithelial None Seen NO [facility] ID Date Data Source [id number] 11/11/2019 04:11:00 PM EDT [facility] Name Value Range Interpretation Description Data Sup porting Code Source(s) Document(s ) U Amph Not Detected NO [place] Scr [facility] Substance of abuse cutoff levels:Ampheta mine...........................1000 mA/minBarbiturate....................... .....300 mA/minBenzodiazepine.................... .....200 mA/minCannibinoid....................... ......50 mA/minCocaine........................... .....300 mA/minOpiates........................... .....300 mA/minPhencyclidine (PCP).....................25 mA/minMetha done..............................300 mA/minPropoxypene....................... .....300 mA/minPlease note: This is a urine screening test only.Positive results are presumptive and are not confirmed by a secondary method. Unconfirmed screening results are to be used only for medical purposes.Result created by [email or web address] rule. U Kim Scr Not Detected NO [facility] Result created by [email or web address] rule. U Benzodia Scr Not Detected NA [facility] Result created by Discern rule. U Cannab Scr Not Detected NO [facility] Result created by Discern rule. U Cocaine Scr Not Detected NO [facility] Result created by Discern rule. U Opiate Scr Not Detected NO [facility] This Opiate assay does NOT detect the se mi-synthetic opioids Oxycontin, Oxycodone, Percodan, or Percocet.Result created by Discern rule. U Phencyclidine Not Detected NO [facility] Result created by Discern rule. U Propoxyphene Not Detected NA [facility] Result created by Discern rule. U Methadone Not Detected NA [facility] Result created by Discern rule. ID Date Data Source [id number] 11/11/2019 04:05:00 PM EDT [facility] Name Value Range Interpretation Description Data Sup porting Code Source(s) Document(s ) UA Color Yellow NO [facility] UA Appear Clear AB [facility] UA pH 5.0-8.0 NO [facility] UA Spec Grav 1.024 1.005-1.030 NO [facility] UA Glucose Negative NO [facility] UA Ketones Negative NO [facility] UA Urobilinogen 0.2-1.0 NO [facility] UA Bili Negative NO [facility] UA Blood Negative NO [facility] UA Protein Negative NO [facility] UA Nitrite Negative NO [facility] UA Leuk Est Negative NO [facility] ID Date Data Source [id number] 11/11/2019 04:04:00 PM EDT [facility] Name Value Range Interpretation Code Description Data Grace rce(s) Supporting Document(s ) U beta Negative NO Pending sale to [facility] Internal QC is Valid. ID Date Data Source [id number] 11/17/2019 12:00:00 AM EDT [facility] 1990 [phone] Microbiology - Blood CulturesPROCEDURE: [...] Supporting Document(s ) ID Date Data Source [id number] 11/11/2019 04:51:00 PM EDT [facility] Name Value Range Interpretation Code Description Data Grace rce(s) Supporting Document(s ) BNP 28 pg/mL 1-99 NO [facility] ID Date Data Source [id number] 11/11/2019 04:27:00 PM EDT [facility] Name Value Range Interpretation Code Description Data Grace rce(s) Supporting Document(s ) INR 1.2 ratio 0.8-1.2 NO [facility] Please note new reference range effectiv e 2019Indications INRProphylaxis of nieves ous thromo-embolism: Non-hip surgery...............................1. 5 - 2.5 Hip surgery................................. ..2.0 - 3.0Deep Vein Thrombosis or Pulmonary Embolism........2.0 - 3.0Prevention of s ystemic embolism in valvular heart disease, tissue prosthetic heart valvesor acute IN.......................................2.0 - 3.5Prevention of embolism in mechanical heartvalves or recurrent systemic embolism.............3.0 - 4.5 PT 13.4 second(s) 10.2-12.9 [facility] Please note new reference range effectiv e 2019 ID Date Data Source [id number] 11/11/2019 04:23:00 PM EDT [facility] Name Value Range Interpretation Description Data Sup porting Code Source(s) Document(s ) Troponin- <0.01 0.02-0.05 [place] I ng/mL [facility] ID Date Data Source [id number] 11/11/2019 04:17:00 PM EDT [facility] Name Value Range Interpretation Description Data Sup porting Code Source(s) Document(s ) Glucose Lvl 94 mg/dL 65-99 NO [facility] BUN 11.0 7.0-21.0 NO [place] mg/dL [facility] Creatinine 0.63 0.40-1.0 [place] mg/dL [address] [facility] BUN/Creat 17.5 7.0-29.0 [place] Ratio ratio [facility] Sodium Lvl 134 136-146 [place] mmol/L [facility] Potassium Lvl 5.0 3.5-5.1 [place] mmol/L [facility] Chloride 97 98-109 [place] mmol/L [facility] CO2 28 17-33 [place] mmol/L [facility] AGAP 9 5-15 NO [facility] Calcium Lvl 8.5 8.3-10.2 NO [facility] mg/dL [facility] Total Protein 7.0 6.0-8.3 NO [facility] gm/dL [facility] Albumin Lvl 3.4 3.7-5.3 [place] gm/dL [facility] Glob 3.6 2.0-4.5 NO [facility] A/G Ratio 0.9 1.0-2.2 [place] ratio [facility] Bili Total 0.3 0.4-1.1 LO [facility] mg/dL [facility] Alk Phos 71 IU/L 30-125 NO [facility] AST 22 IU/L 10-35 NO [facility] ALT 21 IU/L 7-35 NO [facility] ID Date Data Source [id number] 11/11/2019 04:17:00 PM EDT [facility] Added by Discern Rule [id number] Name Value Range Interpretation Code Description Data Grace rce(s) Supporting Document(s ) eGFR-AA >90 >=60 NO [facility] mL/min/[address] The MDRD 4-Variable IDMS traceable Equat ion for non- individuals is used to calculate the estimated glomerul ar filtration rate (GFR). To estimate the GFR for Americans, multiply the universal health services GFR result by 1.16. The MDRD 4-Variable [...] 60-89 Mild decrease*G3a 45-59 Mild to moderate qnchochoM8c 30-44 Moderate to severe decreaseG4 15-29 Severe decreaseG5 14 or less Kidney failure eGFR-LAXMI >90 mL/min/1.73m2 >=60 NO [facility] The MDRD 4-Variable IDMS traceable Equat ion for non- individuals is used to calculate the estimated glomerul ar filtration rate (GFR). To estimate the GFR for Americans, multiply the universal health services GFR result by 1.16. The MDRD 4-Variable [...] 60-89 Mild decrease*G3a 45-59 Mild to moderate uugyeqpmW7g 30-44 Moderate to severe decreaseG4 15-29 Severe decreaseG5 14 or less Kidney failure ID Date Data Source [id number] 11/11/2019 04:09:00 PM EDT [facility] Name Value Range Interpretation Description Data Sup porting Code Source(s) Document(s ) Neut Auto 43.2 % 40.0-70.0 [facility] Lymph Auto 46.2 % 22.0-44.0 HI [facility] Auto 7.8 % 4.0-11.0 [facility] Eos Auto 2.5 % 0.0-8.0 [facility] Baso Auto 0.3 % 0.0-3.0 [facility] Neut 2.1 1.8-7.7 NO [place] Absolute x10(3)/[facility] Lymph 2.2 1.0-4.8 NO [place] Absolute x10(3)/[facility] Williams 0.4 0.2-1.2 NO [place] Absolute x10(3)/[facility] Eos Absolute 0.1 0.0-0.9 [place] x10(3)/[facility] Baso 0.0 0.0-0.3 NO [facility] Absolute x10(3)/[facility] ID Date Data Source [id number] 11/11/2019 04:09:00 PM EDT [facility] Name Value Range Interpretation Description Data Sup porting Code Source(s) Document(s ) WBC 4.8 4.5-11.0 NO [place] x10(3)/[facility] RBC 3.23 4.00-5.20 LO [facility] x10(6)/[facility] Hgb 9.8 gm/dL 12.0-16.0 [facility] Hct 29.3 % 36.0-46.0 [facility] MCV 91 fL 80-100 [facility] MCH 30.5 pg 26.0-34.0 [facility] MCHC 33.5 31.0-37.0 [facility] gm/[facility] RDW 15.1 % 11.5-14.5 [facility] Platelet 342 150-350 NO [facility] x10(3)/[facility] MPV 7.0 fL 7.4-10.4 [facility] ID Date Data Source [id number] 11/11/2019 04:09:00 PM EDT [facility] Patient Name: JAZMIN LESTERN: [id number] UltrasoundACCESSION EX AM DATE/TIME PROCEDURE ORDERING PROVIDER [id number] 11/11/2019 16:07 EDT US Venous Doppler Ivett [...] both lower extremitie s.Thank you for allowing [facility] to participate in the evaluation of this patient. Final Dictated: Matti COOL, Jose Luis Ortega 0 11/11/19 16:08Signed: Jose Luis Chino MD 11/11/19 16:09Transcribed by: LYNN Name Value Range Interpretation Code Description Data Grace rce(s) Supporting Document(s ) ID Date Data Source [id number] 11/11/2019 03:34:00 PM EDT [facility] Name Value Range Interpretation Code Description Data Grace rce(s) Supporting Document(s ) [facility] GNq5sUwICOdWpx4I [facility] eEZ8sair3HD1FCS Center 6mnMmbRka0 MjIvRmlsd QUgQ9UkXAD dMHTxx9Cd Ar8bhJWxSL 8XoTlyqE1 vPU+SnXXfn +YL5CTQnp pxL5hv6dIA gYyZaWHED mZOLNd93AY NEN+eylgR wJqlNm9t6R f/44BJc0P 27ayKzMiod f63P/wXf/ dW0M5l6X2/ /k9/+Ms// uG//UP6+V/ +8Bf/ZfpZ n2f8/PFfbo /087z/Sz9 kgN4065j4+ ePf/+E//q f//N/9/PU/ +epkAx1q2 f6TP/4v17M 8n3Rdn/kX Ce8CccYnt/ 50nv74ync t6pY1lbC+Z //gb//qr/ /ALPHONSE/7jf/PROFESSOR OF PHYSICAL EDUCATION /tOff/jXf /k3/4B9e2q flI/vX/13 f/UPf/6zn3 /6V//wz4U b0jCkcBS6h 9a7BMzi+S nPz//1v//b Pxf/uv+Xf /f3//xPf8c +taxPy+zz 587qWv/R3/ 2v/0485vM pckrvOf+Pf /a5lto4vw 11qebyN//9 z587z+vwD /7Fv/g3/8e //nc//9HP CPP14k3vKx Hx/s2/+fs /d1LX4y//0 TIN DIPPER/zCm1Zq Nhf6///ucf /qu/+7f/7 uef/correctional maintenance technician/+V/ /jPgC3Q7/ 9y/+1Z+Ldj 3+6m//+A/ +yV//7f/wl //sb/+rv9 2p1og3mNvt /mSoau7TS 64//+cf/CT q+vT88/d/ LS716vw+0x /+ngs7dUG X3f/NrwGff /Is7Xy+pv V5x/n+fN2/ aeO20m36G qI8OUfR3/9 h6RHYJcvP JYQxOTzzUz Y5kJfuvBp WGQNBkm9pD cxwj3SDW6 EIZ3Z4/zPZ lSld2ir5o jBmh/SpiR2 MyWHOT+MQ STSuz4MQiK ri2vluWAM 7PHsUkYMxO YzxyRwCzA 5VvwWYHdKn cQgwOfSp3 tSAGr4d6F7 RzUW/A5gd we0n4SJANq +twCdgyOb 9fD1wrhpHU oMDgMmhzs /krwBmh/55 OASYHcon8 6nTv3F6RBJ DmvXEng3S EUpZ26ZqV8 Q7OIfzvAG T63MWRx8LT l2/BZgdyq fwkAezw/tA cpGM9NB+Z /B4BLND/Uw OAWaHvJ/j 5GBMDs/6ZA 4BZof+KTw affjOTf9Wu NnhfQSzfe M15/dhM8nu mL5BbcUwX +RPZvtGMs8 x45EROpqh FXYwZofykQ MU/Qbvg2Z 5xdxZy5c6Q 37EESc1tJ FjhwY04S/h AJNa2KJNl S1fowhdznJ A7FA+s7GD MTuk/f+Tgz E4uGmqMmq J1ND6BRuqe z3DQOmhRW 7F7bftjt3D MDvU/R9yM UyR8IyOjsw xjkuOAb0i dngzNIcAs0 P+jA6YTCZ 1MvuAA2JCk T+l9kA1j5 QnbA2tO8y4 gskhvbmZ7 VMwngz2WMo Lz1eBzXcs nYCz6oG+iQ c3jY8fhx2 RUz4kO45J9 WRVh908qA Bmh/aZmR2M 7pTkozy1Q BgHt3SL9EF FOPl0BE0Q Pat56wTBsX jn7ruxFYX 5vA8Z+RZgd rx15wkWtv uW6NdQ8jRt 7+QxLE504 WsMd4D11Zm Xaeux5pYP DIjE4pVfoP Q6s0P/JA4 FNom6V1D7E 0juR7TQte RLg4qqXkSb 9RKtyq9ot /nkUn7asog XmokDgNmh zuadSUY5UI 4AZodHvwG IXPJ41tVRR 1iOhr4RjX 55rwXJwZgc 0mTF9jAtm uifyqMRzA4 qMfVaYZ5r 8X5ajWe/EG VqxF23d3V G0uGmOdC5F LPDO/fgEO Dr8C69+Shazia yfwmZTo+k MxFvgCQzM9 z2ThQHeH8 8SFNB4D0vL uyNTzsA2B NIqik4Ytus zUiY/8MOj HIoBEN5VGu vwmYrJuu8 D8i4ewyOBk 2qXRoIJmz zR0Y41x7Po C+ygNNqwP tqziw/186O LGZBokr04 MQo3xIe1bs dhgfHWO1h uo2utGYa2t YU2QbhJ1s vStm7M5H83 w7Broqv4u +7/l6ggiXR DLbNOmaDc m847Hsho9e qzu09DkYB IL1SQnkF7F smnjNhmRe h7C8wNyRAB 2aesxAMjc 6psTScXu9l CoU6MJzMK JWTV71vmcR eD8UMRgfs Uv017w5ql0 WGccMJPP7 jCDrJjLaIu Jolene/5nSu 2s3dycjRw0 15jXesmMv q1nPoBCzWo Au+aDa95Z t9hIcKp9pN iOxg24CbD 1/w+cgcNYS ZAt3p0mSl 4Gqvg2CBEs jS/ZkO6+d 6a97Jli1LU vi4LhxN8v K6qCHwrsog WobgOYHYo a5JCOwetTK VKsuEdg9L rZnOnGE5AS jXXAcwOVb 7YoZ3jZpMY zfXHRk3IR HYou+pGDsb m1CGptVrw naayfSOZq1 Hhnu3BClL ZGnoHvU683 Y/bS2j6lg Hq69AqNOLW xxYnp4ftn +RgzA5W+yQ UH1HiWz0U mB2s/koOxu zu4OgUXF8 9+5+UsIzZI cv7HOPS99 mTHIzZwSrZ 5GBMDu/Kr TJ9PMQCDrX TzRdyyz01 pBRvH4gPXp szZcq5Cqf iC3TGPKHHx Mhz5n28jK MxpefHJjA3 F0VPsve0h FCGc5YRerJ 7LPkWzuSQ 4lcE1T3A5T S4MFGD7WF ecjDmGcyef dIMZiOby5 4hb86OBVab Ea5A9CA3j H6vgEyr8HS 1GhLMwa7k FyfQv4VW/M qTyLeyr18 FkD319VHKJ 3bo+i3A7G LSK4Dz0nnn 4a2AMhepW GAEC2oorWl 5GJNDf/Wolof 7bqZ0yIQwN InsQ02F7Z JwZgdbBFLD vzg3A6zYx 9IMDvYQpoc jNnhnYKwf KFFfz7rR2I mY3Yo+h3A 7LCrCWTfyO fc3vGGXph bbgx0VYPOx N8pyVcjC8 JkN6a5+WMF kZh5A9ID3 WUpcjBmBys CvBHsC4gb GgBMO720RD mKVh/G7FB 3zM2yaIxHS mPkYEwO+d FvAWYHK8+R wwD9ZP0WD CwaDlE8YVN DSfotwOxQ t9OMSYgVcU pm8MFF72H uN1abtVrUR lZsJQdjdm x84UgWdcpo FZ5aTIqSa 17D01AJsJH pXlzkI0xx lrpEY93zGc rKvBDK5bm F8GBinkPfF sxeH98Q1e H0naW6d7mu 0uaK5BYWZ dHJZjQH8Hq OUysBzuyg tQBndtBqgD Ov2L/qAeu 7ILC+KgLru jBlenkH84 9lIbwWWf5Z Cf2DYeG0I if9P3SN77t 46BiJFo7g 4sDuJ+Fv4c aPUx4zDhl tRVioc8BXc Mgeu6YXhU 0uHjTzz3TU jJoqsE4Rd U0yYdUet3U LnNlBKwbO 8CYjHkOjl0 MBpQgZ3yv R4LB9pkSOD ub7jFDNiS 08m8DZG1sI oWsBwZkdt XZtaI2vWED pp6BLWMz4 0AKCMztoAc CZMsQC8Ve OUwsIzuygB QRndtACgj C2NL6pKIEK PvIp1BWRH W1vPWJV7OT 3RwsIzuyg BQRndpACAp DMSQsIzuy gBQRndtACg fS0mRHToF rwCtIw6VJG RL3uaFTCW 3IoWkBwZgc tIDizgxYQ lWwFKcxK7A S0pXFSWrq AcGaHIUtvZ 3bQAoIzOT QtIDizgxYQ nNlBCwjO5 VW1gEOAAwd AcGYHLSA4 y8WJdtGdzg EFBCCbtYD nfY8sETNje ykFBCCbtY VuiP8kCEBg Xx0lYTKR1 gKCMztoAcG XHlAN8Tom +kMEDZo93R KCMztoAcG HItEI8QeMA QsIzuygBQ RndtACgjM5 NS2qQBUGP iRf0EEAJC3 rfBTPO2Ta WkBwZgctID izgxQQgGS uWkBwZgctI DizgxQQgG zWAoIzOTQt IDizgxQQg GzWAoIzOXQ tIDizgxYQ ySwGHaeA9I AFBGdyGFp OqZMXEDW7g 4MWEJzJYW oBwZkdtIDg eO2uEYCbZ i4yHDVU3fM CMztoAcGZ FgHG4Cijgz HPOPz38UJ CMztoAcGZH hAU3EoLFJ oIQDZrAcGZ DyTP7VvPw ZvYW6pySZW ndtACgjM7 SAEBSOaiBQ RndtACgjM 7DCkgOLODF hCcyaFqAc AEUvPM6GmI WkBwJoemB QRndtACwr/ XLPEmvfm8 0/31knE2w4 98HcJi3O6 HmyjvmHmHz P/7N1F+ew ul6vjyit77 7jv1E25g/ P+16/7Xjvf fus1/6/X+ nnJ06n5sZp uMf+3u/bW /9rce19/7S 3/t7fy1r/ LXrsZfegp/ 6gm0nAfbn 162/2A/2S9 cUu19RdWG /f/q7wGTg5 EvXT6/dNr 8B/tdfuk6+ q1g13qpa7 72Ba9vD/h1 t//Xnfbfd rl/32H+dX/ 4175NQ5h1 f91V/HVH7z +8n/b7bta vO0m/7uL8u oPy6/7Fr3 vId9cvi22p /1q3/rVq/ KdT9ox18k+ 1yl/rhL/U 6B6ovL1dsn m8LaQfWem XisivFYlfq wG/rsR/XQ X/oej5BDF1 6+dg59GUc 0gSE4e3i24 5f53x/v+Y bdqg+Pemmt /x7xqj56g D/teH6++Pt t8eK7/c0r /dKS4I8g4I 0q8/I72qn vO7An+v+n/ xRxNPSPZV /ejmh5wp6c 93Jj3Cppn eb7vHz/Jgh iwFds4mQn ut/vNgUrqb NQbeJc9n/ M2SEiOS4Jh MbzSA7Z7Y vajSaT82rv 7Ve472GKt IKHB7329BX URK8yLrWR vu7yxav/bm kog4fJeRy DsKH1wm66K Os0Blqubo 3lUhHEKzCq 383A9EvSz 7AfHFjM/aK 3kj3tEQ2g C3N7HqxP39 dm07ShOWx wiTwvW2MxS 9xJfpXoa5 wuy3Lij82f MEepzAXeT qA/J4Ts9L3 uPZQuBFK/ ARzF17mpzz HC1uxo29Z 38G2jpGoJf e7LzoYEe/ b29/vLjLgb sIvKnscvT ksUBuxX6w5 tRqP22Xcs i1uAdNSyXd pVv/6L41n aA7aKqkGk1 p0+Pv7GdU 0ziS3ZBdHI +b/sWdieM YxgmqZiq5t eKLVmzBmM 15g96XyK2E 1m2n8Rrg7 tvzWTQqmm2 fwK6vak7r +cW0ajDx9q a6WryhvL6 vFePt6HStL 189UzDjvi xs0jjiiCTX EH76vsCb5 SwZuxfHOux vTvmPYB1y hyK0wbBpOj HhybgyOU/ rkVVL7UrgK NZh6nhO1W Da7dNORRzT hlMTa16o2 ZP/qM6qcMj BdvZOa62b nqC2j80wpC iRLIRw2EG fQWtCRw7q5 Lcv40N55n JKtud/fLE8 OKjZlAp5c D5ptAd0UhB tz4SEgm+l mGPCIvV6A6 Tf53+xvSw sngv6wEUMl gpQfLREmL G3zKYRTzjY 3Lb10yoyU sIagQJTvxn ayHUBu8Vb je5eHkuuiv XP1bdAwxK nVbv3S+Osu us8cWuYW7 Ph07S3SusM TPOgyL+xB 4YBAm8OKQc w9e3KrpYc nFu7HUH7Ka MnmH8dze2 X/I3fd/phK 8yEdzJftE JIS8PM5KV8 3g9JUWfzK w6co6RblXB LCkdKf2Ae SvGfnSRT8r wnP04rTiP kuPewkaDs3 fMXbXXn+e rFWcTZAoXz wkZcQfHwR FwbB6jPTJd MICHAELA/Fi1kWL U/OY337CxY ysDxYq/m9 KsB0jc0pJv UJUvIBXH1 OoHMcZG5pr p5h3Xa0E4 r2UK/mmiBP Sfrl8Hrlv D/J/W80hTB l1Ev/Se1J cwzNjTXtND VfWEvoumu VE0vuzJ271 o+yiAMaCp qhdHNOO59O 5j8fZtCzQ uGPuxZbuAH 2xY/gmEO6 E0R4u9f2WI 32Q8eQgiZ Iisra2lwwi eWpw5bBc6 ljAvSFmE6x G4r16j3As PZTTTcpeuC Xe97I0Qzd H/ItjinVlw l5LBm66s6 O9obT3Cl2v rYpxe3kgs GtYagg9lwW x5hs3d3Ya mXS/q67Og3 JyHREHOCO PmkaNKg3cV 5LJ73OGMr 4nBxxo8MMI 62B8PnIVr wzTcqHmK74 aZyGVXudJ gdqDZOrOL6 YrRYyf9Qt 6K8rHuOJNY lj+zuYJmy JOYEniXJtg fydS7GmF5 yDMESgwdcE oICxmu8kJ Iow5jjsSGu h09ZeGltJ qgpkmRi/We +/lnfCW5U WlPfO1Ec/W 04rlJX1NH /tFhEAOUbF FXEVs05wk q/0KSbnPjN YiSGDNgq0 K6qLskBbNF s9GqtCMOm i7ZJfo6kDo xdbOIzDe3 a64d42m2Cn QJ+FAHr2Y g4I7VekAkd 0I4H9WVAY 62oZBaG5Sl /f5A/3F3A TLus/3Fy2Q w2Hs1CSVd JpXqq/Vkml Q83sSan1c rYJlCTbMiW xv7sU+BGe 50zzMj6r+0 elPpLrAXA AGEBZC7xEo Gg7d7bFln Kv8sXD56ST WfTRFSsWB P9IwlDHfWs 8iP7Qo5d/ c4rHL1nWwr n/0H0XLZH 4t0n7YWHDW +6VBv+WLq 2yI8v1GbcH 9Xo55pSpU mXaDqgQw76 VVwTHvDfD hfmIGiZ0t6 3mD3x9e0O bYTyP2YG2c O0FvjtH15 4uZYjaUJSN cK2EOzY1c zgePIx498P qZl2h3RCr hhdYwOFj0T 8hQ9hDCO3 Cjbt+gMbc7 H1+aUPTZR aVdECp+hsM M2ofTN3kY rfvE8QcC1J kVoQaBxl2 LzmibNUR7b QuFHJPweH B7VrcMt0/5 zrhaE2iWa uaXHaquY8s k1uXOu+z/ XHkp1yhshH k0Qlna96J iZSr82N+Lopes PxukAfbV2 jcNc6+1onG qbcGxthb2 JO1ZNaO2Jo P8i7i6cgZ v5TrL8J11G 7ulHj/LjR i3attngQEx 4exAyXUfM VJKVP8iIfn XL//rUWw0 RJu/99ZcHZ ypht/b0xW DkGa5f5aJx 7z9Kjun5/ js74+DVyLz qHE+hSfLR ckRE9nR8iQ +xIYVl7N5 o/IvY6hR/E StaAM1S3S DKTknS5sR3 Nkuuk9Qvv kuZ7SAvHqf +XraLFADc t6rY32sPQc hbWHaBVjn 4PK0lpfSg2 syKwXvehr d+QPDVy7Ca 7fEEIqzG6 drOOThDKOZ IpQMd7YFJ lZWvgbU6g8 +wwkW0lxy du/S5CjX5g 3WzRWwqaO 1SPTqv8jFj crEC1KyMO wmIXdDn83D HE7lsPGoe y29fh+ac3I DAHeEaQ5c /1uuUyqa0d eDKG2Wlf6 WHFcEybbb+ B7l8GOOF7 60/GROii7Y aletKzaIL /7YmmCfOCE NtdrtKzaI Gu19yiKEae MA5fipjLV aOnHr8SmIz wfh6VQ3tz QX5pwn1PKS 7VI16n62k V0yD6+mIUs p17fk4lUy tfadoPvu41 PhzimWzZr qLBw2HEwgq ZtedHSasf YzUg4MFrsz F4Ux1/zup gm+TbsEV+s XVDi+FshF boymbrbc2V 0BAsfqmug /hLs6bHeN4 fj8b8hyp2 h9OKXu0T3T iY1PGcNA7 hmr3Y0F6dk RPWZ8wbsE T9a6KscjIj xMwn0J0MH o/0d213Eeh PmCVW50Ud UWlM710bus DJXZFZLRf gvbUh5E3cS o8WwRcgzd lWxe5eIT5j 2DPTEarhV 5COxbrFHJF anTPWuFys ynZD8xoBMm 0IzDY0lpD aFN0z86Wrm iyAXmFeKQ KIiMt7jRBC XHylHHJsL 75bLIejLVf f04OdOkPC XWSe0Xmo9k nZX7vE5z/ leqgy+WsVR Y8IiKkFg6 nE4H19caql 1OebGxrKY WmXqtLTeGg WZjYtOtX1 op3a/PFMFC 1+XlvX7fF +6ZR3O7ODw gP7zWo3tz VIvlinOLQv 8Md6RxUIa Hx5QK4k2+o 4CZB2oJAv TLn8heFD6K Y60+IxnlH 1VC096Ipd5 H7XIsg6Fw hpnRpzARaN m5HP2DZJZ kpT1rL11Z/ TKNPgWWbF QCEhHH2xJv D2sVqvXg2 o7ras3+0r1 tE6RpHMhL hJE5CbA+8D ZWKqafbl6 uH/5DyoIbF 7I3JkCahW SLniMWtVmc x1q71/HG1 68I8NXfyIZ 2n86W7sfI Pt9GG/2cId HU/+52F6R ak+8GmvLYy /kCr6IZXo ZAs36FFsqC 82N6dwkAF zLLqwyV2JA pziXpPZKt sh4iPEf1Kr Kng/99Dri ndPviHcuB9 mOr4ppyF4 muAGq2fE7i uyG+tjtCH k9nYRDFclV N+elXItyo wdiCNKdDqf y4KHemysy OWPbTYsE83 uBd0mqYhH nyEq3anvZW 9fsfEXHh4 imelaUdItj llNZEepw6 +I+hGYVXFT o5fa6zmrX HvxwaduV3K 2s9Cc5BXt 063hB9uwwt Q50eIMajo LPp8jL+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 go5PfIoWE Mpcb6MeD1/ mBjA8HlFQ yDbvcFuEvz ngQE8cacC bhLG6gTbH7 wfe2sEIzl Hqh4ASPlbB fYthqPi1r Rwc5O2yq+6 9sAt4OLv1 UshCVHcI72 Qq0GoN/cJ 4jEVDBLxK4 P1LIv5epj Xki6feY4l2 nujHqdGRh Ym3ARH96W1 uWp/OAE9V 3mEcN0cZTH duXDdJpdQ idbfgzLdXO w9PcqAahr jPg5dtrAT2 31MpO33Gy 3yLnjEtwh0 OaXt5UKNa sPeIPdzDme 5RODCSV1I JIs2GyhHuY SYcM3lreh IkYz7YK0+N 7M8K35AyW 3XNYwiuxKE PJhJedm9S HnfQ2zkE0t q4MDvBr+f zizA/Ec3mW KoPToMQ0P D2zYrKWaAB 44iJ1IZ4r zg6H9aZK9c /6aO9Pd4G 83bJDh0Lok Os3vpAxiC JcedmdEsxd 0McRI00C6 vRMHU/XZBW kAAosPh70 aqG01KhNKg JpeZ2fTzE IWXSvBcw1a NFsfIUKqN m5uguJjEI7 EW4u7opcl d83CmmQH+f 6vC75eyA2 x2cLDDrrVW kKVTuNIHJ 5pBQD3DrpG LtUpteS1I 1o2G5jiPgW t5iqI1rfL rk1sdhQqGo 2bP1yeNRE O8kWgegXZX xxRa8Z7FW J34zULHImW B3YmMGVyD jgn5di4bth d/x9B2q44 5eojl6z4PJ XqGoRgw2s r82aQgfIkw CucjqQ/43 99VeAPzTG6 Zk9+Rqe1j 4Yhbj4ii0+ cSeX3Ictc gq0wcTX8Ys O3LQ4qV+f uni/VZe5t7 bk4qSOlF0 XKJXcZl9pC jXlxzbxBj jJcc+8eHea V9o8MoSz8 wUsCBVE8zB dAY6WIOlf DxPSpFl+GZ ah2/kBfLm wYmglEjkSF qlfmQqXWo l9tTkOztQo q/i9BH91s oWvRSQUG41 VKtgy4Lxw k1UfA83kVo XnecO6f1x FMitl9i7kG fXpcytWZs MfzSb9aqyd Z5AtytF2O 9/1uHK0+9y PuMRv5SkL x8TEp0C3bl +9SOa66Qf k/C4So6t3a RqHfZercM i61iHss3Mr jaJ3vNoZB 0bf93KsySF OxT1e0Ru9 up4gE3vjn5 Nk0+/nsYt F8dWhzuK5L z9lDp7Sgm qfj3WgiUto bdyJuXEQ7 SQZ7rBDwT3 rko4Ddi5T 7els82E/U8 f1+FMTYmb 6N8gIvXTOG 5uGn0IhrT bpN5wRyvGX 7fK0TOeKi VtIH/jmHnw OrfWePPo8 Ee1oDymLc/ 7Ujtoe2Av VovXjw5/uc +qvPilqdr rGkMls5log DmX2xBncl ShWgWGq3v3 S5rQlfPXu 9psl8rJeFR ReuvsLxZN QQmFfq+THO mDu1GtoP/ o+GIuS/1bU e5T/SdP++ vkcnqqaPuK cmVdUec+X PFf55efQs1 fyXEmwcXz 9VZgat2S/D e0eiMysIc QIao5P4IUS fdw3Oian6 +4oQGMOfMI aRtQG1krJ w8Yc+enTUv x/tBhfhsq NTSCnTuooR OMuXRlvqF a3Ops79ro9 nDHvgozGs BM8vjuZPxv abM/tNWUP uT83OcAR7v fU2alpbjX yOtur5+sWL uV2tUvvkA dA2mTPcij1 EyfqBk34z H3x/afO7BE 2/EF7nRga 1ThJw9Si98 kYrkXGt3h A+2W0Z+zL7 v/bCbS3Cm GRDmFfU55g S857qw+p8 +iK5sTTi4Z H5DO9rPVD 7q4Hl+o7M5 Ra+rCp61d yEeD3rIxif mPy31U2u4 g3LM40mgVG rmyVxB3+y eD1Wx0gBG4 TBujn21rl Q04nL+4H1P pNiOn+20w cMDgk8qG4B G/bNY3dn/ GGSndB/GMN 7cWN3671g y6mAs/lduK w6uq6MzcS b28PFea1Oa 4lhSzT5p0 dDjRKwGbOa G2BeW36Iw VB08e+xMJ1 xstYu1TA1 pPkdDxROgp PegzPg8VB NtR7CfUsJ5 ncQUYP9fr jbwsCbZnTe g9R0I/LK8 N1ppV4Y3kz BC+W06Hcs 53iLde1LMW cfJUtpdI6 D2ldUCc8/c uTe9kvM+6 RkI/SMe852 fbKGz3Tqm 2o1e8agEX6 N4+vGLrTT D2j8HVz0SL 0anJOwBM2 B1mEz10Mbo hRu/lbe5T naC29xIqbp v4AysPjTD oded3S6SLN ojmP0ajYW b1jLN7tHg7 9q1Z6q341 6JcuJTXZ+T 5z4vPwuci CK7MkV3A0a 8pNx72vsw Ibv7PgY35Q 8q9KQ+ekP OA3rHvijjk 6Dv6O6D86 l2tDV8ag9z 6HQ3XNoS5 VDRkS6nY0/ B+tMhawxv MnmavAky2o Sm0bL8yT5 vr7qr1cQbI DfSlRREG1 ZRbpBnemub CyXowA072 vFRpOqI9fw emEWc+UIl Ah+lU840MA ZtXh3X+XS IND9fk13BS CkHlWuLwv mGg5vm3JwC l7zCadC4I hUq6rHFI+A dFzHn1oAy PaRrelBaV1 +PaqvtU4O N5cwd58C6t 9+XTjZPah NMYsXGNCtk BASY0P4OP ji0lFLvXyE YlT59KWWD /AD5ubQATy 9iaXfqQM8 BmP+aHXuHZ SAxdy6c0V sG7Hpxe1/E 9VswTimPi 8VNTzJO0xO 7p3vqy02R O8zZtHeDUK +BL++OJrH 8Tjlk3dtG/ ni/9jyey9 rEvXuTMpMv j2rFVsnv/ 44u4wDsf9p mryIcS0gK pMnxmXYbPr BFQoOO17Y +fQwzkcF/K tcnoHl7R1 Z9tUj4w1OV nGRebZI62 nzPPoa5vJE ZHwRs9nkI 0MRceOC+3o qv3siyY0I BmyXVY3lA0 4yu1ULfna RE8u00J0O4 C68dqXf/7 4IVIzWoJ0s nGLGG4Dwy un/3vqnZ3Q IH1Fgsh1E a8F9dmy8VV zkSzNLg3G 1dOTZguVN7 Hwzvwph61 vi4ta8wL/f DB7p5Clhr GYueAKh38Z ZM9iVEhgn gk1zFy0Nmt bm9p8ADC/ 3o+Q3aPvY5 NvBAYlp2a iW3v1Gfd3/ wwv6+V1mm HI1hVT41kn tMDF9i/vE pW4r1tiAWR dUxLsHBiW Vsb68PRkkZ YxUZiWjka 0pDYVvS/Ie +t0/92OE1 l6X9bp/8Nm 4r9P6S5ov aJPXOPXmLT HLPdVWPX3 P/6839Yvyr p990VuBiV rPLo+MvtUL DaiMqItXx dPSHVPe1E6 /YvJqjb8n gqrlaK/ZNL YE9b8j668 wmx55D80zp v1/5raROj C9Lyyhp/cg adtVXD4HS UcTZxXovQO y8g46jSgU YbUqNeTw3c OqshyiLW5 zZhuSZJO5R gYMVYkzi3 Jta+BKceat GlgYLVuXB TlNuwmP3Su Oj5456cRF 6lDbaIX09b BQWr/Rfon NYwIgGrjVD HcorzQo9P BZKg4xpl3L Tjgo65xiw ydUz8WbFJk oz2kAUREM X6KcIP7h1a 2e7+ELDKu we8/4SAVd6 N0/UnBKz2 52Cm5ihyyk 3jJ/Sr8u6 5/kf6wt7di MMPC7vf+9 YlBvmqreTZ 3VpwvrZKg XzV/sN78dn v5VjhJt60 Tz5KaT8W3r cWPft2j61 gJcNitW5Ca ui8bu6xZt 4piebq1Lu/ omuYdQS4G gOi5y6qUXo MpQviuLja PcKEcSyxrk XyxOj9UZH wx5JLDtvIZ IeKV4XzgF eqLtkLin61 CQvg3Rwjr f8WIlMFFsp uPuOFOPHZ 9cliLFWwTs Gx6pPBh+R sEGGnoN3IH atzUhCwYq xDnHsS6+iC oKWlz0FOy MoQsGKsXbD dJCsu3qyT eXX5FkdVFd uZoD6ou5E 6eX9gXFJo6 kiGihWjxC kRB9/AlrWM sEgTUqk7B bmVSLz4mUo 1TfZeP2Lq LMaRxdnjWJ HBkjEk0in ckFmvtRbBN sRZAjXJrE X+HZkVx+lI sBxlBa3es SMJzia4+IQ XZm3CYHBz dKuJ8xOM7Z Qpj5/QsTo 1B0iGHzlHS oKbi331Ig UrtvYlOIs4 WxifukDFi sM0kWzeyGX zGhnAR0hS mQdin1VJTD WyvK4uWGH ACP7fwlcCI 22waCbl4P tszzk86q3F RgbPO1UOP eOiCSLkrBg 9UHFZqjIF HqJzSf0emZ W+l44WNI0 Tnn1Lczx3F Ngbfb/ymU DXM3MByp9s 6dVGDTStG JtQVxw0/qB pFSMZmlZE lvnhtsWo7n nTTNOKqVf GIU8RvDev5 OX2KpWNav ToZ2feDC0w idl2aWiMH BkemlaMdQp 2yvjQtGLk ME0YW3MAcr C0up+dSK4 DRlqB8uqe/ iZpdWBJao WiFWPJgpVP eGmUFakVJ 1quwToL7os 7H5WEiSD6 OE7W0RhC0I ec8gtVend ZayyuyQB4W eCb7MmKpl duCw0eD7Gb 65wjUKCnV iogRaCj6Fp C43tbjA7i wplTKxStrn OI0QsWE6m tsFsHW1Nvj RCJ2jMbi3 ivBF9ucqMJ WgTbEBxJ0 AOnT6aRf6S jjAdVKyLP ib7gFZ0WU8 uEKC6S1FZ ETavzxIem1 uU70JZurm E3eXZAF8nR AFStzpMYq xM16VlWPvx wwxIvp7gc yhWwK0D7Fr UY0hiWsmz AiA7FogDqU evU3yRYdm UvFhzIFrMQ dAUqY1Yyh kIT2psE3Hr fdKty5eS+ BCxl4xGQkX Ah7NQAvCN jmeLcsmDv9 7qZqBWTxz D2cOCOaTs1 UrUfGppWZ 5IG41vEf99 pWjEtqkRA 0yrGLSStzg 0ISavzzDB JKyZeskLTi rODgYR0Qg 3whLlsok4I rdiZijAQt ToLcohaMa5 nQ4UgLVBl R7yv8EXPVj Esequiel+I8huC d8PRRg0p3u IYcVO7vC3 bj0HCq1qPG ZgFQtbo/T gjZ1zhLafN kBkiSr3BQ QtXqjJ+OZB rrsvYJh3r O1FpNiSOR2 kGVyCqdUL F5TTpyJh5s tr6kD8FeH SYKkat+60Q KxGd9Vgmm nTpRt/6kUy wk0h287M2 83bqTdqFoO O44K/s57u wjaCprM8Jb ZX/xpf2Ep lXeO0g/IWl 8i6pNEnGS aF/IqAVqKH 0ho2ZX+1r IqBkvSfaFj Fog+dEXMl 2H2tzALfvs Ro8LhX4EP SHOqOOJjGr 39Ahcu41j Lne4EZkytA LUijEvca5 XfJepLc8TG Sf5dV0Ovb AQtbrfNUeU sLYhOJLgb HLkRZNZiFo xZpprQNSK sXVxHkKzCi 4qCIyqcWq sVwNrEmxNs C/BqYeSQE 3qwKNFHTiw CrUqH+1Tr CIYNx7NVQs 9Ht2NrX4k TWMq6FAq6t ooBV6JaO4 CALj0B8am0 1aY+hDXqQ yg3TDQeYHr roJlCrYs2 Lsg/xpTSrS ZwYyFA2tg THBkgl1Luh 0g9KeRc60 JyFoxZhoTk RH9a0itpf 4NDVmrMyGF rFUkaKhaH UqxVIVriqz qxkKzANO0 Ovs9X6RnCe OzqGK6mu4 d8AQeYpGNn YUiRKU6YZ 2nKtWS9ziM dOnYaMf6W W1ppQg9C7W aNH73l7PS 5XSn8ZNtjF EcEj2bC1E KLPRZZz2K3 ISXqG12UO 4J6GmN7aaU tWKsVHGBq hXjaOI8+Sp 3LFbDuUfK l0JiVVqoTs 0CBXbxHTh dw6VM0kdeA Jh36TWLY2 A8xPYcTUcu det1wZdU6 nd10VzZOeV abZBQK90O beOod6Pt07 XvNSNOcuG qJwmmJpiXo Kx65HKasu 74CVUrokmr 6/Cvoe1vR umc11Ebcrs pP6DTku4f CXJiharVta YIFNZKTyS fAwAC9F0Bn OyptPq7mX kSayAnVsha 3ZPKkVgDO bFC1+o8YqF ctJ8hLEBF wF2AOeSwxv eaRXBRcQf aVoyZdtAgb sVWzuCQt2 KcfMoVmTWw ffjStEitg SIRljpu2NH KrwkHsn12 LN9t9bZXp8 rawM4xLdC 8EJh8OqZqY y40qT50bh 7V/aTD9TaC kmCnHAiBK ybet3mIIaB xYya4j1tE T7z6bFyX33 hynEVVIqh bnQMtzqwQt 8UVBx8f6B w3xEI5Wzgo 3+p4Q+BKk VR2E9goVm5 pHH2xdAhn kP7utiaXmD idxRSuBAs 9/O6q9krcO hYfuPta1C j0XxURD8fn eICiguZ2e ELNmYH4PHb amLNO7E4W acXlrYQTFY 9c3sr+jjH DF38BLixVn xIeTdlSbr xUAXkrYUuG bYYmszp8Y Sb5dvLs7hL gLsUf816H iOfrNaREYg 93/GtTu6f fMI/Cv1yLv QvzqFyC5i HUIwMflnHX Wlbvv9Fif qtbCXMadnU qZsvu7tuj W7uCHIDGu1 uJ8h8G19D lrc4Tz+Wti KdAZOTDmV YoJk8mbHwr F5oFow86I nQzmor0wx9 ludCu7TeK LHohciXusy iiVzp6Ajp iTXnUl3f7e 2Q2kdpzeb +LvUfWyqu9 u4Pi9nsR6 fzEcoqEF60 VmtAJdWR9 ErcoucrVLj 8iNGAkKP7 uLda9ksO2+ azSsz8bGo 5UgMzVrkDV 0QrjCm8Ct xhxNRVA8H/ ddyOuBpqi 3sxWQxZrp+ v7eeM4LWm G9fXs7Durd gkBjJY8v5 9I06zapuIk UWk+qlgT1 pcqzAbQi1l p4kVvHULi EANm8Bhux1 be3nDNjOr JQ0glCW8jB LrIFdlbLI 3Tj6GwarXe d20gMolHB m+PEe6WfOE lpti/Dqfh XnWQdt0vdz Qyt0wvDz8 bgtKVYK/qP tvg2hkGNv 1T/gy3hJjd uVk09rTm0 HBjKC85+xX udzxUu6rD 40xVHu0esW j6HQg4Ss8 4q1dUp5Yhs HM7wFamZa eh/hyb9JoD wpWGG4lSt JI2q7iot6E bW/Npqjo8 2bcz349nNA 0I8k1pjwD kaKVT7c8Nc 3OTr1kNJu 1UmYtmWghe kX+JVfXh2 zWoEd6C9Ex Nyo3YF24+ GCpEln0PoT Ph77YOoos 5RmbHTCDXy OzOLVbYfr wWS+zD0sWc f5Hy0jB2j Ma3dpaXIch VNZQRy1tG ukC4VoZ40V RV7HSxQk/ V8O7M96uqR m/xsnkeEe 9w6+o/FGfV w6/JPL/Cz Hr6xAz7g03 5L+VJNRlX vSI+nVh++q kG58XN9/b Y0tT02Rgb7 Dqdo2Ph1a JO52Y9yFov NiL0q688V j6GR6wyuIO yDtmqpOg7 u4d9a/dwo8 VLSZHaMRE pKXaRsdYpK rL2lMLrJy /SxKFZ7p/y n4InzV55D vLx/3JfPHb ZljMR7Xbe peW6V/e+K6 dPC/d5OY1 qx0xIghNih Cap9c7dkx GhVCmBQ/jq LuPOU7lLx 5dd+Yr8T9O W20/b1rGX iksINf4qc6 l6ruq9YIP B+UpQo53+L T/qxmA4DO o1Y4KP4jSN l5NghprWn OR+mPecXfn qzjVM+YrM 6saqzun0aO mNkttZ7rf dlWO0HinUr 7xp8KwG2V 8KMpuzXa2j 8jq84Aswh GPl5BfJ4q9 wGsqFJwv1 5scQul8oz+ CGd4c63eZ r3xxFQCWVu e6ba48hp4 O7mItA5Kyu 2UVUPy1Th b868hgRWI6 FK1/Rii7a i7VKh2JgAd d0QmIljIr 9os/LuZ6Or 8OyiIbolb OPs8YG4uCI ehE36BzN2 1QVhEk00nk IfY6M64xy rbVFXj/mxV CRJM8lV7B 2BVDFf0IHs R189jSrTp HWrvOIOjSv V20Fg+Stephanie PviPpVnUfa NJZE6sduL itWdlt0KmR ty8rSZth1 Bm91xqzFLO 5iLXgmXqe 8g5uIl7Ty2 o3Q260oIj 6skjkGTPh6 8R23AIJUR UGks7z1Fb1 vo4C1H4zo tWj0neOdMq T/MJXfXvb yE2hs5oSCd prlF0HTbg VuKFTtONse CvQbnLGZf pn6jTalnT/ p6/ZjHkk8 hlk1ntQ5un JzUXJpyXc oaTdvGXPOK UNdKIDi1q dqNr3ca1uj RT5pgmLw4 qZFFjt8nYO IsHietSR2 +bYrH4LTaF R2+h7vX4Q 48w4oYbJQF TbOFZH4fW YykW8uwShO qvN5kXviU RNF73r9wX/ c6AS3WtA3 tmlhrziix9 NPf8il6by g4+ksWvC6x V9u/NGfu9 LPb7C36zsZ vFH5cInRF q+c4abLwJ8 +V1PG8hSD 1Pn37l4ErI IYF38v1vs tbeA+8N7ji gZEtL5AQh /1DuwTXQoY 3l4snb5sv K8729C0H2M KkMQ/NK0a O0eKeRlokg Urj8qKWN4 cboKcIdjjx yYviNkN7L 3IPp02NgZi nep72vJg8 n0r0A30cHq q5DnyyV0T cLx4f/9nUv gXfM7tG1V YSbwU/pHgl 9U8dc9r9S DwcqhdV2ZD KVkm+bpWX hE5mct8iik vIx9/fQz5 2378+9iXn0 eZdJ7042T zcQ17Tf1wg 96k8i/KS0 ++xYX44N+W vsImL0oty Ii4X8qUqSo Lf6lrZlUI 72Y1cyDbN+ 3FLT7Joef yCTKb8qovi 0jLmqlfiz v9smsqh/l/ ySoYfY2co fL9HH5NVP2 ySshThIXs rQVR39NNAj +jXd1F62G gLOHSvBKUq Xr974hEOt 4/ErKJO9pw jyYtPrnsl 2g4XKnG+kr pa4nqIau/ xAwS8WNZ9o Vz2Bbyop7 +iC/VRZKE+ ppx2De6tv /qV+A9e6to +J1L0dlG4 wX5mGsAH6H O9tCUwSfg eyujwmSL5l WCj33FvPu ky9Lr4iHSG 4UeTIvzos CaE3Ou39FV uetri6Pj4 tGlVg2rz/f Bh3gRKaMz /aKy5NJVYN kYs0/2bDH kPyxWxhKdc 9ymvSLkkF l3Y+eGtnzF bgG2V96T8 ZWhgN07evJ WZHQ+8sTS zjxWZPbAWN MvIH7ZwpX cnl/nQo3o+ afdWj8rSj SSbk2pU+3w u9XIR8IXI cZ5JRpmHRd 0LOHVBN5j 6+j5FvQjHE ZG5v06G+5 NucfDY4d+J stHR2Qyvo ZWDq30qXCk Pkvwte7g8 VtRKGNan0q yvkro0c9f mI21TIOTy5 bn0fHYQ63 ykWSNcIHWZ uyLWxSZJf xGJ2dRTqdh UbkVZsvps ixHnr3iYf7 09V1FZYjl lnkPMHkndj 9Y1qc/+mY iI6XMRhIMe HTUtQ8Yr2 JJgl4s+IqM n5lDjB0sO gS9vhHlbiO dyWPfhNE+ tXT13mEGlo RrlDuekXJ to3l1I5b8d yxK6vBTNp PH+2FrxAS1 68Rt4DpO4 ODK9wYmcfb 8VOLiV3vy ti6wXzTIum Vb5fWeLL+ ON9jaufTQy 2gcP5Jtwk LYLsSU8Sbm rJhRd681O 2nGNL3FQdP Kph5h13F7 8riXa0/27l SeS66sDig G4vQ2qSPSY OklylUjnx rw7l4eOXkj /yWFt9/dC KC3T3zRulR u6sUgMiWQ 9R6xb/+R6W Pdi5qQdDc 7tWP0nUwif HGaPZwxK+ zf+Xl81i9W pJzBGiTIj SuBIFMUawx aQBpW5iYi ZFYECaxbn1 eHO6XoUk7 4EQazzDSCI pu0eQUPBF xPnvuRQswg uujYQxLIc 7niNkT3ayJ 7tNjBLET+ gw6Mq3eGwM z0se+q6q4 XxexaCWJYB CI9Jy1S8a kIQyyYCroD 5vtkHuxu0 QczOHpDy0W ZDbxoUsWx c3Om0U5IeL Fn813etyJ 7XOwiJA1KZ Zauz+ROKW BuhIODRn3b C/xk9QoWB qTu/N6Ctes 9f6miBCTF hiXXCWsOXz X9/QhHrfl yw33cT4Jn/ Go+rfVm31 0ZrrIMiVrI 7HXpYNhdr W0JSpB2Mmu Tchtp99vY 1YzYLkvCHu TWS1aMaZS N8awbGsh5v EmJdF3oRD JcVxO2xNJ5 tucvmRz+h a1B2arJlEp gau+4wtL4 uxia+vQqOK p2jS6nON3 TzQ7tYIjDz cQ1EfwCbh YAjoWOC03a 9Qp9fVpYc Z8Ghx+EoUM YJH8PA76f 6dUIa3hOlR Zgc3fIJPL YjPYchhsXo B8tsyWv31 ketcYutFsf YC1MdDMkS wuYmgcTY4e 8yD0CrTRr nQ+2eLaZRx XfSKIYYFq NQEFOI2hRA VXE1VXzIp c3ILylm7H5 Urzb4MbVi DXff3laG6L p4Ab1SxPl Yfgh8mbW3J e9efIPp/h DDwmMESljn 37OTm/wbC fVBjyxksGz vj24QRxaG feUnZLDYOv AsslfTIYP AbBgZz7DNt FW0CELXxM lXkVh4H1ry HtQGfD7LD EglW19OBx2 26GDZKvon rRXSykMK6d 7Qc2ywcGD Kg90m7EquI CiQQgfron TqVw53tibB 0nw1fWyZL L2KweKHUgk El2xDB+sg dLCsKPETMl g7Ydob/ZD BsopG/gkZL Lb2yR+1bH iSju3fr7pz 6pWOB2gvh kmt7Rg4oV1 RarS9Qcno Kb2gDwxrsc CK96wfyNK dHwQqWOeXN hWsGBQQwT pAoU06JRIS 64xiaGAxW kZ1T0+ndvO SDPw8pXZA dbFGOrWnBw XbMFm6rZz Y2bwDAIFOR 8vdE69RIc SvLrZIp/ho o1YLFqyLM VnIc1nBijG n0/kTAliH spQ1C3oyeU 9irItdPZU 4aXM87xTSg zIiRiDFH5 gNsJaA1BDz NMdC1iFML SsT6bdydyg WIliHYE+C Emh+aK4N5a taAL9nnEI 9fe3gS4D4p n6t4YSQaJ dN/eaJNGq+ CY3hQ0nwf F2ws+uoTJN DI1oItHwk UYMwdz6h6m YjXVDJ5KE e2KeFPvX2C IHe3qWV0n VrjRU40XJA rEqdUmPKN QzF5AFrr+O OiQA54rAF EHlEVm7Rxb IXqxEjcCT H4cRfo6+3y UoRgleMNQ a6ImsOGNcj nfEIyauLP eIEZnr+QPL qHqrHitSm vQR6Ueo4OS 6RQvLqfvu BFelFGrDj0 5R2St8WQM j95bBqcgwl J2Rcj1HsA MonQYNb04X hu/ua7lGs releoxUxcB DrfWseG4E Qd1mBMF2eS 7mrM/2D3N GCR8X7NtnV 1tVZRULri nEKrXanZhC 0XhLllK8r GHhQfdc1wi dRe5GqhBf koX6hyObRB dxcC0gUIw AfVtl3MXiG CiQu2ZtWQ VBB/owDFeT P+GhBbruo 5NqcqkN8mr 6vU1TjH34 ug8jUlYEH9 QtMkGj1zT 6pGt26U/8Z U3YgxAAD5 jxIUKmCddJ YE2RnjXNU 8o6EKuRakx obdPUoO9D eHYLUVYJSR 0dnWha1zM LNLf2Wnocl GAcWY6GaL em8FfRuO1x D3ueM0O8K qj+fgPS38g ZpcT0lU1/ 9hNaVtR+Mn qE3ep4N/B ZrV6tftROc DOiP604B7 KwryRo3+k+ IXVnfyPpx savt+ziNem nTWAwm0EX 7C+tIunfHQ fgXfZu2JZ y3C3khe2mo G+wuQfA6p NcRyZjoy63 7CwaQuzqT dWca5tnu+n N3jfHDhnh QZ1t2CaFqW Z1aTxZ5W8 N7WUOyjw7k TUhEtdzpO sNrZR8T+85 +mjLv0dUt pnPNEcLJIz iNxDTbvZZ QuTorCahcX WuJIIGVln ZQuTo/mqlc Du0c6JwZ+ 0VHRRz/CUf FavRivUu7 ILAe7qKtrB FjjRjoYXC gFmvRQF+Cecile l0GJjTAmw WiLeVGwxLx 5tdIulG5E EUH/gLI6LE WtT+xgY0J Zx1Iyr6r9R qi0jZlrNI zZH2d1EVDR RPUOW9ZiS Rliqu6IwjH kU3nPAS5t kwGJVY7BGp XyAE1LbRe LB22Io1MxG KcFGdiNRo HXhFnuHKVJ dSLllDjSA wV7Sf2Y5aR ZdmjftE0O sxZsHTBJuR l4FYro3X9 7TcppQHNz5 Fvtbk6Jo9 puDKhtQvdc 9zdQkwSxn eETIoE0aWQ uviMrU/oO idU86bWBDp sfxsJQlfW D5N/QujKum B4k6wgxGs alP6dIzD5c ZCv4J7t06 DWHcTYcSjb OiAS4so0K zY0uBDspx2 QNi4IcdDl H7cNTizJOQ wbrYDoB0h LULYY4uh5C krxI6OzMa TgsG2cbCkF bc37ObpoP AEgdHWeJRC 6Mb6uFA6j Fj3Jjd8dHZ IG68mStgm a7RvECbIE0 LflFHI5V1 zpM99ePw+p nI2IHxstF RZo0tjNJYW EgFpyv8Co vlCCjU1VcY Mxnfv8zlC 4XpRSXG0nX prLQuiKrY IhwGX4QdE4 a26hACGO5 GAx91UhAKF i0zrVJi9a XFJ6UDazrR XqxZooTsY e4Fw6tGcA5 YpNi8+3YI 4eafLi7db6 ftqmBu3YZ 16rRChYnwZ WrE/DuWJ9 erEswVYFey z4IG51/r3 4srZPFDgha 3X+Xdb9ty 1K/k388U6G +mjIau4iK nX+fY/Z7xI Z2yGyfyMb TjwKZe9Zyq mRBA2ZBiL G3emSoPVei +C2yGlwVj fN8hZnRUVk Y2YbG196N 860bwTpKka Yp3colgUY hfVnHGlh/X griMq28a5 Y4jmcA9/v4 e2AvTgsOu wTrzrHcvEq UXnc9KA7u TBWodd/Jba nqLR6+PTJ 4I7jMSG6vp 75eKetRhe hYq0XELo6j LvVzRl7IS E8zNwB8l0D 6FcRlqjvH uL2JKiZFvr P3rdMrwZb NgLbaX0Qzf 0qYaq/unQ EtQqIGX0e6 0jp50sjm5 Fpr82ppeau L6Ya2yguO tFOnfnE1ke Q65rztoHl QefCVWKfg+ 5svTrRAy3 crse+qZ9bj 43TFnbfOa 3ZmbdOXbiK /E9Pkn/3E qhsj7sH//Z 1vCHXasQ+ wdpaV7qbFC LOcuEnUh+ p96J0nmhaK Ydn0+Otxe dcLrxIXu9G /niEf6F6z WXuUnq+2pS n99nsTt/a rSVWUSfP7j 2b6M2M7n8 ozArwbHG42 kXkwlXCFu 9o3ni/0jm+ SiuA1GDik jOvc+GqM71 59Ivu4S+P 58F195Bh5t ASbNp5DLU UvIyD6vghz leqA11u2N rhHW/Xwqbz Tse9+d+rh HLVqSJBuYo +XqKvKCfn SugHu642cf qkq+jXKFE 2diGtEiVdP /0aO6L+ef DuSHqcG8Iu qjMDdPEq8 Z+KYi6OkfK 1SON+ek3y uItXCfM+rI nM8LlwBar lLl51b+TUJ Ed3hBG6L5 XVhX8vIzsx 3XlETj+cE w5vLS653JC 0AcUAouh6 SZFmZPbDX+ oBdZvL1wB 5DA7n/U6HF 1ItcVYscr F849r3B+XR +bdYn0U/b D8dinj0rtk TgQcvC4ih G9weY4khiQ YEJC056fB l6anKt8TJp SzNhB1ZEJ +APou3nBPN S1J/jRe9U YoMVB202SX phzqcurKG Zi6EndcaSM x6cb68CIy 750qAv9rjb eDiVfeuz1 Ujy22kWUu3 7kqf6xSnw 8jgMl7WirB Lu8j8i2Pe PnZfN+MBmF heaP2HskT dObuo008Pf 0nqcOanJZ YrGs5vgxSf C7FNh58p5 GEwvVk7tRX XrooyhOtW TGrxM7SiRn X+XFju0SS q/ACnPZV30 DyjRo2/05 xnFKkLyVaJ 7usMl9zS6 oHDzrzAq9z pWn2NW7Km zO9DKngA7O nYm9xfoxN YPjJGa5kbQ m4ZB6ixsh p+DllMrz2r +E8+++JtV CK8XluoWCW qxDrz8i2f nqhKCEyi8r XZqjOwijd TxcCCatUdh 1CtujcNVK h2mdBy1m0H DQz4HoTpF XUfbJCsuo/ 9UmJhfjjz 9FA2X0Vy4K s2IWF8Wt9 Fqea9Ihe33 irinJVLV2 7D0HyckcXK u7xaBupkP LKK/E+jlR+ /fZqaNdzp iJbi2Edfmh XCtJwsp+M qkDquXK/qr kVLl/Zl16 y53rSokzXA BYEK60Usx kF5nFjx9vV f1+Flch+z d1FtatVD1s ynrJshVXV cZeTFSAt7z KZjmoIlq3 rgox5ne2QT diFjp47Tf 7diEZek/hK drh0C2U7H K2qFmnuwlz zDqStruNO VXP8lCnlz5 t2EhAteu5 YQCfLmrFC2 rWjPirVY9 f4s+rglc+K B6PNsncgY UWv1Oz2dwT TfOJ9B5wC jcnIlymV5e L8RNXNjIF p+zNydH8Ng 7qRIcBm9b K6n6oDJaFc yjis9oX/L rUmfJpa41a MyOewN8Ro dS7Gp3WxuC qRdw8EN0s 6Oz88MnqoQ lEVYS7XUt 5C66l+H83B +Zw5U9I1g rlVFn/dmrv N57+YibkX 0Kh3wvZpbK 8Stn0Y6kx NjeF/XufoL 6TXGwmnsC urvRNc5veQ QaU3mVMEO bwf0ZRqsMU rjKsL9Y2w fFL7k3BQOt TYivb9rgK BMA56qNRpW ex554CycB nh8HU/j5cj vs2KIomaw lsVo8SMWy3 is+byVyOf eNhIiWw4k+ kXeEHLFKr z8HIS7Z1xY S2ZN8nrpv 6fgCpss0Wr rzTvAYqQ1 bwGLgd+8De xIhzVkWX9 UK8uSt1SSC bPJ7tG81c wTjPSuOj+e m/eCxVrKB KvuJBaCVWe 33AWrTHBi OdvOdRHBKh PVgv3NhGV fJi0Xmds8Z CpuNx1yqw bOaks8HwUm Z99iknzEr XlbmL+wB8E aAqr9dtSz TlGig39ANf voNptSfYd z5H1kP3NtO jYXrTzZ16 gtGZh8a+eQ o3bUWGpF2 PCvQZ19ppS v3EzBKx0y NPSqKPiKxT m+ChSrrh2 QOvM0FMx1q WfXc8h3PW pVwpPLUtCs ouMlfSMYm zA5aVNSqrg IQvVC4ACU LKPejZ1Pzd tvnZXK2k/ BhFkS6fcNd fnB9U2aXk QgSkGv3PnI nr07G91B2 ALgkwz8m62 G4yPUbzN4 KECzSvxbU+ 5cdYNmldi XnE+LeIdzV 38KioLrt2 4GV96wxAnB k8Zd0m45V Y2twq3mLEc HQ7NK+GyG n0JLjVPCUn cRK+YjN1W msgZCfxnz/ Rwz6zQT4S yk6mu6vW5z TOWWlaXob qLN03wRmAg X1e1mNsqG rXM0WEdLFh oZ0fOAHdB eW3qFo9nkR Rdmvuj0qL xkes89lc/l YuX4Gmebo VTJAVl2s4f ls4wF4bhj I0FjXoGYUa jk9CU1uCf k6qa/gbazq RfFbLu6Fq XGn1EeMvAd 1jPvVnKRK mJvPjv+6D4 sCUxLZ67Q Rvb+5T+6Mt t3Lg3fPe1 q2OdRZq09n jGu9H5knO 2cDyF7tqN8 kSrhNPnw3 ox2Ts+70cj e+et5A3t5 8n1I5x1eMx S9f5ePY2H il/aOtDNqv JXzkm3PMM vGj6eg04jN fbm5z0Qt1 h10gGP103E fWEl5LiAY pTKzvgm9AR GN9J6wBtX qPkBNpErMl Z/HEKkSu6 LyzOVC3Gkn 8rEilR/O1 PLiKlXCbej xRlKevFaZ x4NryI7BN/ r1zIT0CmN s+I+kLKl8P pHKcTIzaS qfKXLrYdm4 nylSuR8/f YaipPKZNJX CFQmO5xxt JQMVTxMp1b iEu2osVdm MmltntLDF+ UUb2+Wq7u 2L+3A3VII4 TR0LoyqjB nfWeBvqcJP f8l18HI75 Nu2AW8IHi9 jty21Sn0k bNslh9WUCj 2z7QC0jnb vuukqHVBV9 PhrgLresL Kv02T+8qJ8 1Pe0YAjU5 PInRdNm0z6 m5N+WxlDX kfQU64NsAA 1fmMjjkqs Gj5Mfb9e1/ 6Hr9kotzw 9rPimXzIrm tQ0XQ1sWH CXqq9uIk4a 48OAay2Ku FfQpyVbf+s 86Fn3m3Fa sYyosLRivF a1R+/PTha zoXHe9muvp jHLVSrNMP w00JlmfNg4 F2n4u1ike vbbFglTBX3 6FXdYfayr KRvopupK+i G+wzhIK9S tgqsXA+3NV 6WFXWO69V 9ET+nxWr0r VWbwV61B3 x6p//d38Ti lXLOuvKsD 9n9/fGb4p2 NdL2BXcm4 zu7ykPcMDV wOyMgtta6 eOst612qnS DSKb2QSW1 nBAV/Om9Za 34Ahj3dgv SbA3zM5exu ZU11m/3K7 mM1aOyP4cJ 1V42DfARN zGo1CjAXp9 zwv5Mdrb1 w8UfEO/bZm eXkrKlOOE ++MBPBCuSZ NjdcckzKl jXVbcakbVl TXcEkHrz2 yT8+QV3WVF d6/LnEZU1 1iodLe776A VcbHN/hWZ pVXNFe7V8b Dwtt4UCmi euHCwrI00K 2lS38mwrd 1fmdChQINY DfqUAxVQf gOxMotbs+1 mMtdQVVa/ UbXAj2EvtG tekCWo+11 JVdGwh+ZwK fK5b74t14 wl4myMmiNz PtZbe1Hr/ Ju/LJd4lHA MS1TbxOW4 5dA+d2B8Lm ci3qqksC+ 1tu7vP+lpt nsbwd1gQJ vlvqyGwtdc Iezr+9tdR ElSrqbx00B AdS9H1RZ8 8Svmqw7V3d nXTXuWWOY C408gRorXv m09fNVq7R eujEuSXl/n TlodyiM72 a6RUkRu9fm vEV1PNPcJ niNMpibM43 J+XSlBv/e NZCR7+9tdC BgCZti1Xn /rpnMvn7Tv yQO3ewM7m 7UfsY+vlFm SQ/K+Idzn j4J8WZyC1x /uU/vg4n4 OF54c2kY2q WdyxLYh3N dDb0iAPyJy h7Xf7otGm 9mpHbC1DNS 1gjLr2nEH d11QHIoJvp r2iEPcwpW qs/vUi4yZB 1K3/hwOnH 0eYkLEivFz 5V028irDv JmnOqVwj1O K5zuLp8Ma 8VpNfDFeGI GFzya8bKC hToenUo7ju ZPKEctdnD NlTohX6R3m +njNSQzK8 9YyAhih6Js 5qk9vgfjD gvuopc4E4u 6mzsyOXEe i9me7oVHjQ cfg+GXE52 y+VRZ7HZMt Dl9Ek8cAQ zNjrhJqe+2 +oLM8JxrP RP3ertaaLD 16TcmnJff Pz5Fc/a6Mj i9opTr6k+ +lJ1PTnX0a fLT2CHKGw L0bElNEvVd Ad6Sdd4+U VbaYRga9p8 hHDljd4w5 pxg4euA0x7 eTbmKudHj VHwSg8pGFs RM3vQBCRy 1cq96ZGaCs PWz7J57qm zfT80X8TGU os8xrxy12 prGW7yFlxK HH57KyYwb JqdXvsKVz5 cq9LTBLau D6w1OGfkzP 1s1qe+u3K Q1bpe7OlE/ /pbVEbwhp QfkRGBhAhr 5i4w7MhZz MFoOB/RIqO 7CP9Wt8jV +oE89nYxvd eYxyEhhBs IEsMEydkCd WH8j5Mpgu xPgXmiOy80 9Rq4+XIpy Xlinw8agqX /j+eFpbl7 R9tUYB6Y9Q SmC2wZj5q n9B8+U8kKu Fo1ZciQ18 g7wrHdh+vO mx0WN90QR tr8od8FcnB bg2a6ccnz Xswa9jCw/S 0OH4sZHnv nIh0JjmKr6 Tw6TA6Mjy nxjJ16SWh4 NgoEL0ZtV jyYRaQ8xj9 UGJ8zasNf C0wXV5TzlN pymOzI1wd g07t4dhaLr h2R5DeSYX pGtiddibhG vN+c8lWtW ov94UOErAd nTuprAHs6 8X91E68Dff 3KjidLuuV Tg0VaB8caK 33FMYLhz4 JVpQrrVTxs PgoFsHfmu DGTrMwYHsv MzcNi7rqc E/nusbL3mS kKkNYsf2z XRoxmYyw9e /MDZjbeKm M3sNfrdl7s N2cxzo87+ Mx86PlbjcK bWqfiuO0r xX72Codjlt kAw9QcU8V YnfI4WdIg9 nBrA1ZH9b lsoXBIa4WD SbXFZo+bI ms5MwdWU20 euGckyxtZ ipi2NpZwkj 1Ge2y60iF xo3BRLyzGR O5I2eu688 GdbvhJQo2c 13oIWMvCO B+1GcLOiUg vzTtHVmrz IS9XJh4Is7 33sI1CVk8 coJAJugc54 UaPVErwT9 YtZXekBL74 3wMzaPO8Y fJ6zO4ufgS Xgxc+B2mJ c4Ev9oetkp YM6AlLYc2 I7V83S5OZ8 fz93LbXJn 4mvB2o8uSG 2w17D2fI8 WdnX/hWv68 p+i1gQhTb ALa52Epoz8 nCH6+CBOC G0Pu52y8MN 4ocxV6Rw2 2fEO/aSlWt X/b7pLPlb h4OQcBkmyT +QwwT580G MX0FoU2tzq CeqJn3Jgd 1Sod+cePKx w6ikfZ6YR eH9QhhlpHg cj8/BnJC9 iROffkvIqc Jld9P2N4N 60tu3dSwXa mkktoyESp yXOEfp/HDj qv6srE4QI u27rhMkWdw HIG5vEhDj gs22UK6c1g WC7H2+S0X 2Js6D/Suyd 2s2Wq2Xyy vrHVx2qObS xWD3S9aN+ q5ry7zuNEm It2w2qJ/l EsDxZ77mL0 8f/x7hDtN yqYFsk2bE1 V0cl41G0H qFZl01FIt8 MLI1ItncR 2wbsbY/3Ip l61oBO6sd kb/aiHhunx +On7OjmyA KtizYUVRBL rwRkrg3Zg qPzO7fhHxI MqI9v86eh W0zkwIKer5 KrUrO/UFe M84bugtkct N+fHfXJnX nSXap3HOXB 9aiwF1By3 na71D74xds vSqPqazh8 vu4tHX8cyE tFB7Zrq/s eXI6vm9lIm ch6lzlM41 RFfp78pn9o /HYf38Y6n /LSKEFE7d4 SEhWXo4Y4 gtS+uGKlE7 hKX05BL/I sX6/7VbbSX jiut8nu3Q aMAdy6ZB+d PUWtfPDUq vhcwIR9G50 X7i4OsIgh sq6e6we2r7 gRHa2xHPm 1tqsXHkBvl hz7MuviuI dEw/N6JBnv RMGCGqIXT J3Q3GvY7kA YjfcckbvM iU89zZAm3W rJxTjtS2V vPG+ecrpr8 jofrwVGf1 wUfdaldtU9 5HVPnkdMR 4BjbXvvaXM e+Qx19LdS JoU5sSKEpG fzjxsRoqE gxf93KMWy7 Ihox/OyOj EeSjXpKzx8 ufLfVblJa nccPWIb9gK cAUpnbgv9 Q03btgquaV pb9YeD5x0 LtsNDorti2 UrfFRdkmO Kgi5npADeG WTsaiR8mg RYkx+7r8nx AGrIify09 wBhA2aUB6e 1TWR1ZC4R bK66mcVivY PGH8k6S8U 7n0kXW2ubB LbbTg6Ae0 is1vwxybp7 5ko6ZuEUF EEKM5S0NbQ Rl6H+LSl3 nlBBDeAWi9 I9Hd2nD77 CZicuXbkpd y6hsZYsN/ Ov3c/MO4S7 U10sH18/z OlL4uUjlAZ ZydyLsodr 5o44w1WgsK f57pamgH8 0gP1NM7CbG WdJoh10qg lxN9/yymEm 3RmfWXfGZ 6U7N1GwyWN gt5k8gUno uG9M8CceOz /Ws9NESsk eTl/2wgliN +udktIsul tqSdl7bAHu aMyKMFHVg OrWrXrMiqR OXLv6f+Fo rgaNL18F8y SJW0+mN7Y R16b+XXFU5 XnKZbNHQs ejafYosPsA 6B+e3O13H htVx3a/7bL bAO9DI0J0 //tpd6hH7/ VC5hq360y /yrN5N9d7G TFfWzoT26 Zd73Loe/ZH H59Y6vHr1 wvWCtG60Uk CfHVe12pF Vpht1g+WHH jZ19gu3hj QschbN6G2e uazbk73AV qP1DkcMrA/ htUhOunQz MIU0QhatOW N/BuuSLA+ HRfhtM9rPv I2w9ZIQSX lduKm92OfS kN3qnNhq+ vKvI+zRWf5 xlrobcOYW WhsO+e+Gabriella V27LSyKU3 gV6lVX3cj1 1rLOojX8h 255o86pV7d cWZx5ajpx Mh5w4gjpwe qxA44Q5p2 dynGmdWXvx 08f1GCQvp K59uX4HD1W gbHM/JU6V VY7/b7U2r6 wn9jsODc2 psrx+W7fXV dL97tc+X+ +Jf0Jm3hS7 ee8P95U2/ WPsy0bMiNK oxXcZu5yE HLh6LulLtX pTzDxeudK 1oZDvYq/JY +vHF+W7L1 x6ltEZOP62 H9Rj3SePL k3f5rWa6Jj RrPFPW+vB kwZrBiz27e SJnT7z0PO RiW0bencq0 smXHrNZSl reB653pbF6 VXjaiL1bJ xDqcaEdycy nKdfDhvIu R9YCTSfiPv N0P+3PmVW Le9IT6Q+Rs 2sQWGv1RF WcfZqqIbBy ty0oNFjSr sZYsawmO9F HNA78otwP Voxn2K7O0l lAuejN7MC 2WGUmaX5TO Kk+b5yDz6 VMZUFPu9is Sd7Z3GgjE O2H3hb/UsH l25h7R/GQ 97zWV1kSlo 6Oast5iLJ ++Wa509rjs R8ZHgct/y U8H2+EqA2b EDryPxxE7 8CvssykvuR 6kTBYnE4Z btUC/VrhRE HrkOOj4Ca dtuC3MwzOF /HCmJefmm yXmetp4SHB 3T3rOF+jX PdfykcJ3tr ZegW+mNLK Yh1I5p2hqh N6MOiR1B8 jN6N1gc5/m UN7Cv8IA3 MgBYA7k8pD eUvSwufvp YTtcpnIr+v HT/L7h7JB vODvkJRVpf i/Je+wDil trayowQ4ij +A2T/s0ta jYAgC6pkbL 5DOWWlLll uUS9arvF2G bwhuQdkDN SoatrNu6a1 1HGIlhyvv 43gV3HkgUV mUpHfYEor JknZYWS8P3 Vx2itT9Np jh4WyEa0U3 O4oMiFEmD iorSCpSrXq dy//Ifcjp Y8wUz7iqr6 ybp6M++Db +Sval74YHY TEHFU3rn2 s4PMXZ9wzw jDF374XNB v9ye2LFJ7s BF1nBZdKj bSLpnFT1Fz NCvbTBuEG 1hAuzA8N1v 28YG3fOHG 0qOQfpYrM8 xLvQfVwzZ Zvrnp75Hm/ uUrWvnwNC uX6HA/3KYe bmRlbqgvk LX3PCGLwLo iNk7nywF8 TBKUv0pDya cbzgUL4EB z71OYlvyfU tmGYHFpG1 V57JRfRivP v11OGnDn6 8rmF56CqEc Zm1tX+1Cc IVybZUt2gv iHuwbKtPc HynszT3040 +wNnSpKm2 rHEfL1egkc dnO8k3G2v bHqx4V50r1 78q9bOW+8 b27FDss7IB cvdoLxm5f /AE4MTpv13 cv8+3luYy pX97rw5fxf +BaVBqu3F +5lXikNp36 8mS/oaoue qKDW8Tu2Fd 69hI3qGFO qtPstRqtib s4Le2VQ3G ig7V62dk9t 5vOoS9Iy4 1uMDdFNlfa 8xbh5Z/Bq oYMzXNtN6c 6RYB60hso xJ/D2+LPOd Xg8c4uZDm /t015dgQ2v 3vW+0p0z3 82viBe4/zL FutuwHwLs 4BTugwfOVq XlrFiqvLa 2mdvQNxdqt SymSivIr6 1tHny/lho5 3fk0t+H+L A2K8FnIJv8 dToukfrhH 1EoU3SsirI 6tWry5/oy //smKpSrXq dy//MfX4S jWQCYPSPxY JY4ZYcp9J k5ytiB2o+Q /1/jI4aaU yTenqVyyMn rKSezB4rH ckcaPnbvnS jntbIfTUO buuQJNWuHO 8N460mEVg gHWR/a+Cat phQuPlvrI XvvmttR/FO Rax1vIEDc eLOf8pezez ewtafU1kd TE3j2LT0Ol m7BAXEzy9 c4q0rKUwxv t6WDrtpFe D9hJxiyVN6 Li2WcoULT V1lf0hgGjH egbUPf4Hi gE3lmdVdf5 3crdkG978 kGJ40wH2io uWkopGv4T JKinO6i9Aj m4r8hYx0a WiM5AFMK97 eDKP7Esdu hvvkc5q+53 PKNr/9DLa RvbF/elPIv bKvzhdG81 rZ1PpaKc/W aIjMa5VHm Hg3MLzGnqh pqv8T8tzW ibclnKrSh3 Lg/V09B2e XBWx55CiDg dBJ7Jge5d B0wVtiqRg+ KiohzUaBm 9cy6QG+c2c sSs8u9rPr gTrm0wQ4t8 bDqn2s9xd oqfRCsst8x YW7Cd2a8X Hni2aAjDOB /nHFveWBK 0HFveGKDtt OAfpuEPKd b5m5NkAqFu Y67GB6mYG c6kRWELKsr 4bZBatjd1 Iq+jpl5SaY XmGnMGPGZ NiVawVGXe8 N7cv/zHUJ K9EI0mjDsl YG2Gyobzj 20+B22tffa 9AG+tF5Oh YVqZmCy9DA 1zucfqHKX 7rMFBcnjrd 199bwM/hS MRZgp47Nov krOCkrfbu Hcaul6HW8/ XTWNjdv4o Jd5l3mmyZD k5O268mpL IzY2C66MFS IeijrUqt6 8DjS9/boor 2CxKUgqG0 71LLaByVQg Ss8Ijk/M8 xzaadE5v63 CZepJOuAJ yOXlwBL0gj 9iQ2yn2au PioddzxDuc 5bSzNMPZy qorD/34rPr xxdUnaMsK Z74F+2lOO9 ya+vMDAtq aGQ9Bvz12U i/x5huFy3 n1uakztJQF zvCCKt1AV +S3vVW7R88 FL2QTEu0h iuvamraZW9 UQv1s4FxU ZO6+CsqzYW 6X1OEC9kP 00oRb8j94L zNTOVKAvK 9wyH+60poV 5JsFFiQji uboP8rQcoh b/B5ba4m1 Director Of Alumni Relations+KqzNqXt dzLq9jlQr dIKDOn7Qw/ FBKzwpKlx 2lMOyzxxqN Ucf545MmC V7U4vnQcXX 2R4tpuO9k +dr2yoRY5q 65U8pGGBv j9t7CvfVpw +sHs5zy5V bfV4djMkbf InXbojQm/ Y0ws0mF5tv nJua2RpAH e7fi/95DY3 1tU+H3Oi/ /E8aA6D+Ex 3iYW71wgw /ZPk0oq3g/ TDVWw9NCc xJDjK5aJHD HUlPNSrkW 5LN4lYuYLn 38juU844H aqReX3odLI zmok3kRXu wgVKoUQHdt opz6Ndmmg 8VU0NaD2Gy 2r+eeIjll u7zb1kuWaS CftL4TpF/ iILd7bT0Ax Zt1kSLkrV X/Kz9Ec8/6 aY5GguAAM FAn77PZMul TYZrSNQXP PldxPtms76 w8uuMR20+ DTh8YInRUy uwvRsJTtu 24hjUkbY1Y cs/brkCBr sIUwb0fiLe es10iwfzP pT0pabNVtK +begHb8I8 BLjvn9+aeQ HGPzxIBfo Zp9Cm3tT64 ef4bBJplJ A66OW0D2Xk E+lGdSXjR iXTfK6AT3w 8PnEUil8V 4+Aplhonse+fihqu aOKbqe1ma pTEym0y+mP C/ra2T8ND Gly0uHNz5C fo25j+GF3 hhDcs5PBX+ 1jKSy6+6Y 6V95DWl+1S 5zyofUu9z LjT31WLLL+ M/TqPY7sq bo0Asglmob D7knG/It7 ntACh4rlUW 029dm9jHU 3r5bUC2pqd WnTPQHrsn qbal1e346U GV+/FaMJj 97whPHY/bb pjFDtFrMM WzOpRfwrdM Vf9EJjOuD y6Y/Y6Q3e2 OCwq1Ypox xN/oeVz/7s sLjzmbzf8 DZGPhR3iJt nu9tpT2XQ hhrxSurPlc 4YXiZyl6z WSAKTHhIui 8hPj5fUEU qCJM9duaOb 34LB6hmkn 77iB4THcec H9lcoGN6t vxQQCQ01D6 j2vBR7xg6 d69TtzpNAH uTP2IB8O3 hudg2Yy5XR 2OedqI3mN Tv6W0g+PSO ru7LU7YuV w8CcRrkd4u TxCitPUx+ Swz4sTgsqK e1MMlfH3j cQppD3SxpI haABow0y+ dREtkp0Ifi R+apv3mMV BmzvUx+w1H MeOYYomeY bYJP0z5wZs m2wMeCpec QXxsXvXQnz l5nFKJ2qG LrlV1Qeq0Z fInjyrH/Q trECNm8nhv 13IMrMjx9 hmMrj5qMSV 2lPBBza4y FjLVPakXsO /d+Wp6MGc T9I3sNGS4E FhT+rH35P 6YQ93/KeiJ 4Q2v8jxvO xsd0HQM1oB q8jq/kflX K3YyPTfckd OnJOyxzvc FDtO/6nOYy ayqA3pNLw Yw7l/R1Yne 13KXa5+R1 Yn9nh+vBHx DsvVHMjqx DKjaYR7Yf/ 5iKmEVY1H kI2sxzQsxg Tz75s4dnY cohA0p8KiZ O7EJau/hl eD6pmuPYO7 4pmgI3mxa gcnXI6lmPD yUDWdMvnw fReLKo06Jt IpdFtV7hS Ei2XjYz4/i ic1RqMyO/ 2XaN9sUdVD oK8ZjFKsz wslEmQ4ZMO nLBbULlPG WAi8c0cHU0 q24qVOYN6 hMjZGYeDYa 1FuQ/2HnH pFaidePEwh VCac+SEBo TLh1tV/0LB qyLSRHaBT EddB5LU4XT fsZiPolAk 4ph9qKqkvS 1PkUZgQ7w KUGlp4Sv+/ IVRGJzeQ2 PMRY8Cdd3v gVEajaCKz E+emXBXbF3 e+YSfy+Zhu lN+u0WOXWe ZDWz8+0kN aJ+1CeSXnx z8vQQHhDR FoNdRq9b6k 5d/WfX8db /GyGdpmwJf JpnJU0vX4 tC90XhmJnI Iic1BlGIt uQV9nlxWwa MdBb3BveA c04cmCjw+6 iA/JldyYM +uZz7VbHO0 LShA5G5gK 9UkS73wIaY kNNt4lUU2 pUmYv0e9O1 je2TFk31G b6j1UgVmmm xnbO1dd3L VErOmcthUC /zt+P+FOp w8jVgrr7Rz R1XdqsI86 1UuTAG8idG 6mX+AvyfX V2vEiTmEwg jovNti2Fs qJfdqTLUy+ TwvFSHeNm wYrE63G8zP V5272+Il4 e5p23P5sS4 DNCeWsn0v 3jZuSGhXXb vOGiXsbkO bt0QCoplnx DFAaXA5gn yUOTbmte97 XRoumWCo6 l8jYYfQkBQ mplmuZo0E MsYJZdDtUx PijC8TPu8 QQ0KfJMGNf kayg2ceQy ZxRSZPDDxY aSFQc17E3 eXLLsKK+mp kPMLNQ0LX hZN1EYgjm0 mA0eGCHcQ is7zf32GKe 6XTYKsysX NnbcrcCwTn qW3t4VQH8 etoavepoFq hRpnl6Y39 0CrWZqr1wW 9xVNrX03E OkPCiYdpf3 nL8v0i3fT DA3j7xUWTp r1xySyRIu LjJGpAwV87 lQlvSoHBq uzNGLAqewp +hmm7o1hV 3rZp/oFT2Z rb4RRCwJF 7n7XpGcXIF buPTrMdrM qEF8+OsCoj nhHOwmqsI gGGzAGsyp7 AjNcO6ZCU J3EXOcYwZU CtGdP8AUO SXvAqk+aGt AjSHnAre2 kK5EWNXeAZ Arj0VRSDm 1GB0ZAdwFT b2t/jZbuZ tiPnhPwYDM syqQO/stc RywSaTgI0C ILGGSTYlb 0IULbXkD5b I63l2gTXb F0ZHV8+Q9G 68lx6+OYE JSnT5drKaU zat4OqwYb 7px7hV/a+O lkLrV7sxc Uv9Qm/ssxw Bambh0jQy 3f6kqck6Vy bYWg2+SmD Lua3VnATRk uhkVk2mk7 RLnNqTpJ7U cIxz5GlGM pqLDIjNf04 yIdhmXDn9 9AcIWpSKA5 ljIvXDLAr r12QTf5UfS p3k+4sjDA sE24fUnQjO kLGz5QDWH v6yJmTGYUY ozLipSIOo vZpaxmB9zj 6nOz/YVT2 zmaLisOmjE bbsmKATZk 0y+4fNmXCi 5hN6yxvjI VMVue2uzqD zJ5GqKuul mYdn8kVd5i XQBtlV12p q/CsfaeK4q 0Aeet8Osy 3eNDje0Fr1 iEXqn5+uq +qwNamuI9o be2X7ugco KyGcOmks04 D74pvX2/9 eLLG65+uOL c8D71TeB4 b8uTN+cY5I lxyHcq+JU +WLfkcsSX3 9doIA0yoC 45fefc4iLK 7kL3yWMP3 zQDV0G7G95 l60npREaM XntxkvKmpf diUSfvSw7 dc/QA40pAC xiA7A2okK RvKcytvuXl 8rWwoofO7 9bdlHFp5I2 45wKbsyQh jqx2jtShll XthU/YWtr Dbw4ZIsaWg M5udxvGMY ow38ArtckG Cb3NG2IsD FnstN1FnZO sbBriUCXu sUT9IQdV9z 2EvxTV6fn 6zMyzKhKdJ pk4anHRaD rDpC8YYlUJ f2l+25fAo p33riJft3h ujMmruoec +fNec/uqh5 9n/B+fQ7p PLs4WHxUVY F7qFGELLo lfERRbsGpX sSO95A97z Cct8tLxrfZ u8IM7/uK9 9pa3ukRgOA Vtgxb5lp2 3B8hlkNpBu BR66B8yy8 Sv+iTK8qpj m6W71mE52 H8mXLhHB3Y E6IUUUOaq XwMLa7CbAN eej2LtIjs yxK1jRB+Z8 g2X/exbXn Vi5L7tWgBt Myvxm/Bdm ZblEhlcZPU I6UjzzZK3 cGl0vtyt29 M/DymzwNh FWZcJrSPdN p1CPwh7ty MGSY3Dr8BG 1D8h1BF9P ak8Ko3NnD/ Ye6K2A8NF sDE50syXYC tWvKGzq3i V00peyWLAZ eXJXHD/M6 oDwDd8S74K DYgJbB03c 5cltS/fRBE 6fS3oIxNh Kfqd0EVD33 raHF9RUB/ SwMBOWUrg9 Qsn9+J9SO FiYCY+qx5t p+9LmzTus /VMKBwszuq iLWc8jNAe B1A4ZrDGDp ytvLlSEhZ ov3QBZSBiR Pa+1cPunF e0ACcOt0Z3 nkNd81yHV hmDfgsbCC/ vh3n2R3oW J02OH0335P w8YHQMhY8 DjS7rUjFsX p7e1BU1sk D4R9QYePrv vhgq2zVt7 J6V7Ocr73i 0WePd5Y5n +kG4TqAI2k smLnGZO13 GWIfzur3rV x6hNW9LEd nbuVBIE+zL GdjLAX5S6 hQQMLAhgXy ZcpnKjVJr or873nNX3u V3nvqybro y+LNJFbl/G 6HrnS5SmK 38htZom59V 54Sg3nGvm Vsvdy/Jdmb uXSfusyl4 B5/0tosGZA c7meHoRJx 3kgFq8vME2 jk51Bj3p1 kvH/QXbB9i XvfvJK+Dy 8bUMmSo3uD 4/l21PIp9 3/9RC47RzG VT4kKyWBB 8PK4B9xwnm lcebGuBel zYld5lxxGj dCJjfk0hV zujuXpZy5+ 7d8w5NMtl kn2Xl0qefl 73g7UCCva i7dh4/bD+D nXDOj7N5x swdxD0hZ0g dyztCo7Lt aHfixmXSvo 2Zy9/ct4y Rt+MlP0jG6 0yLMh2roB upa/Gbu5fR aC2iJY+q/ c2Ul+LuzF3 2/+5kJu28 /3cnM+nPxW /bQQo1Jq5 WTlf1lvTYP MNrU5yjRm 2D12VmMtOn Nss8K42Fv 2fxW/IPWle bI1vgIso0 H4Tig6v3rL z0o4fVRbG Loy9SkT+Wi 6+7i1V7x2 YOsJh5aOr8 JO11pk9pl 2cghyW2K4M k9yB9V0fy 6iq5gSmQyE 7xqUQi6l8 W/cp+3I3Nh Ac0sBkgOc HphFo9u62I 7iJ5Zrzg/ iy24qWQzAh 63e4Dvjz5 V46pQn02r3 6SW9H+fSh isc7dfxG6s de+toiXXE y5KXa5+lr3 5tZmwkuuV o+svl/NDj0 PVale+hYq Fg86aAkjtt 12SFUSXf7 zJV0THUp2r nJZdnt7F3 CJNdiIN/Th lLYGn+uIV QyNypqz2mM a1773dlon CpPMPpzNBF hN3fsY5zb TZatO2YMEa tiW+/eadW /Jq2n/Lbfp kry+u5u9h 3T5b+KCRuf B10+wFcGS p8ltW6pqt3 qp46GY86e /xf3UxVqJ1 Cmeu9Qvmm d5Qxq2aB4g n74P2r2mA UfmzmaZQXN ox2m6uuSA T7c50H3bfv Ycf3Lpa3I ZzZ+StVmWj 6l65GpcKs ci8YtLCjN1 WjhRiiv00 KqBX9MgIe6 /Ag2KkqS9 c9tst1GtT9 U0TkYLwmQ wOSwkb9JRR VCvplUx5l jkfN3N/79w Vgy1Mszfv tpTnro1NK8 js/e0wdjs PfowNuPeG6 vlgWbUvTH UqxC457rme 8ZkXXAuwV 37LYysetR8 cosqt4Fko ARzcU0IvL8 b4blgkaqm LNL3/vap2k iFitp0Z8J a4kRXVptBJ U+dEB57p6 tuv4ccYwES cEMxA9o7a ng1c9Z88Mt 5K1RLxx3F NM+hvOTKZ9 VbcuHhsj4 /sJv2/sHZl Refe//Gj8 7qc7XwYFm/ 9X4pRv4J+ zd+0T95pcK /aM8TiCv8 Ve0kS73DbB Wgge8lJXy y6w6msZ2qO aMkH9BK0y 5VynuNeMmz up8y3R9Q1 NzbjLEuwU7 7yOv5E1Fy 742T6+5rRr 2f6c9EPXx NhGXVAF+zt 06bdN1yOE RtxJ8JfZrc ATCPwdgsS 2tn1Nm7BHE jn+a7tVlW tEg5SuXLeQ mrKdNPJt3 p2WMOID67D iiwNnsJFl ibEXsBXKTN uhfARYKme mDbI0F3cyh U0FKwZUfJ 8w9dhS6XEP O4vIckdaQ u9hSre/0b8 tZ3IU9x9b 6+Y2Cds5qT H1m6mBf/E Yln6p3p1x5 sMfzNXuoM DccY2hy4z/ sxS3kl07O IuGb8PaHJH ++LgMPZ+6 KGl7/FFzu8 /S4KrqHR9 TzuIzicvew CON2dtJzL 7QkDTaFAk9 TPhhfAxXM xvEo/npvrc PaeSlicva n36HQ2dB+c TBuN8+xuc oAjT7yfieu RCacgYz1w Xpdn+2RZHE 7bo5wTnVA LHCzOUohGD 9zW7ffH72 Ipp1SO3Uhr xjC6LybhY mEMeWHuFmf C/VR6qVzS c9a/YWMysg AuuVXtr+F MfgTndmfCs kEfUzfoI4 atzmsx7r9N hCkRObIIL nDJya+fYEs WEHA/Y6R6 O/c+Y5w/Yy 9wwZX2cCa 9FxVQZBO3Q ZrwWMrzp/ /iywQLtNdu WQSXXDmZZ ewo93Db1n5 rtnPFXTPe jlpWwUWjWO P5SDafJfg ztkKfV4mKq 1emNNb5mU A6Anff7B0W hylPxfUz3 XSgUj4bcZr Sng2mMY65 b7OwM2393g 1y4As10C5 9uKyBy/auO XB3x71RYS fuhkacNXDJ mt96ysYAe In2I5a7G8p m41BineTL TVCjWWQDki NrfeaTo1m f6iQO9n46P Wdz4fW3k5 JQxpx0c4iS uR0ahZ+a4 IchGrVnCVy yZNwtS+CS zbQ/TSnwQ3 uY9W+Bld7 7kwgmV0SHQ L2sqnwi9k WJqVA3cvVl gsQMykm9O srTy/VjZQw 7tElv1h0X znNevA2tpc 6//NrczdC efsMMLT/b/ 3WP9WmDbL uh/P55Opmc /mi3luHm0 m9LSHhTES0 PW4T/Jnzq ad5Sqlbd/C /Y0HU0XCC iG5L6lAjG8 Rbf5E9orp 659u2Ec9zi 8kLFie180 qkVNc022d/ 5XoabVduX nP0t/RIucv tUEN3Rp83 m2v1r6pGLw Stewart/6Nriwr xJ6lMHStx9 y+hcyN755 0Iry/N/7oV 9rO3QTweX /KctcvjfZH 9iLZzXtUI 73Md/aYV2e JAX2jm+1/ /SC+2MX54X RpKA3nxl+ rDQ4ErucpM 5iD78T9xj +oNR2J1rOl O0w+7/dc3 CEgle9QVAF 8d/g1e74X rFg60kLevX yoryRJih0 wIEWN8pUon 0KMcLZ7TX 0AoKcf+FGV pBYe+/MEM wy3SF0y6CZ ntxrOMi/h IvvNDOPVAd Z98Ub3pp7 eJot/7rtLe nEck3appN moCi5LWurU U6HBogsIg 23/PjZmgU7 ZqhEd+Xq9 S/W8aeuuz6 w2XkdBq87 30P/nDjJ9y xINZavi18 9UJjtMGjDw 60587k9Y9 JQ6b313hOL nf4i8i62A /SvuXSXys0 +xhOKh33M y7o7u9uLAb cSUqP2O1k tHdtbvlXzm zuhMbNXU7 +LoGAc8dm0 5E1Q1h9Z2 z4FErZgMkp T/9pOryHQ inC8K7osAs acUtv48CZ pcAV4q8rpR 0A1JYCL40 68EFghL3eo nI8JhFsg0 j/JfGuHRod E0Ij4D6O3 d2tTCufjGj 2+wRAJe2u L5J98yqCrL ZroefJLui BrueYzeCF9 gNDxPZ80k 3RYrKDFZpw b48w2nXl8 u1cZ7olyBX CTZmo6t+w ExkejksB3p HTMlzQhJd xf/oX4aNxM QBs0Ap++v MhiXLC68MJ uXhyRYL1Z PlFN1pO8wB PvPmDLl1A KU/B0FM50R ffyDWf77E 8wnJ7mGfiu l4gcNhD1W IwuqeuDdqb +f4X9waxk 8n0Yr6hb0z 8+jYWD1// p6EtBXdUX1 LEIuHj7b8 6fLZmf0MDS 7dBk/aj53 z5BvMxiolo 6FkX24J1a WDCNrX/Khz +wobd0cdr 1hav1q1emK RHVTZTXvz sv0FmaiHby yLyj4wKEJ 49QT3QHfpz d/430vyL7 y2SIzCgJ2M 5/yjKNrT/ 9Zkx0w12pU wWPl3I7SX CbajvKOx83 /XtENwHLV qj1fAEr76V ELCqz9661 NOt1S2ghgZ Z8bz/qQWj 07s+aNK9L+ 0hSFhSSX2 Pyu3i3xoxY 0sXT27ZR+ DsUlAAK92a Xhx2/vs6o J2O+APwcEB 3fz2YUKLI 1fGAOQjWpg FhefbOBJZ e7b5unJXbf TpI5WBUJD R+AhUsFai9 5SnD6+zB2 Hrk/BlJI92 SL+Fiyu1t CZ4h1DS+sg Ejw1GcDHX LhqNyb3WeD meH63A+6s 147Fe3h+Ub s9zcpaF43 nywOiPuAti PA6vr8mo3 8UDairvPGe UryblG9AX y25MCvWV1d X34Q9+GB0 7+hXQ43Ys/ 74LHGbFhG 45eF46bciI 8vwPDNjy/ I/tM/koN4f IrN+zCkyd 02oQ66res3 +nfHqeE+5 ht4yJNgc4R 4CyhvuP5X A91nzLh8D2 K5TFHHzP9 8wx+3c3elA e8K4YXac+ 3R69Ogwceu nNmP6mR1Q K2LuR4elcS 8OAZF+5mw zbex3zR7rn dLtzN/ErD 7hy4b7X8b/ hOlL4pD5Y wwTCi8QKwQ aVzWoVWE1 +vda9B1dl9 NwzOMqXlB mcUvkKr4+6 Mx1f6mqYk dsbHDy/hcP uQCsX4u7n YMEy6FYtJv P6HHRdMks mpqeNVzvjJ E/zNykqrq Q6lzg/TodT l+N77du6q z0XtigX1u/ IW30fpog/ bwWEnn5uku /YaBFC3e/ sT+YxCN9O2 AvzNcgEOe 7O3R4S/Wa6 4YW/2lqSw H1VBO97DdE 8M2ugpxo7 7MoRTTrx3M YIB5zAUuV zt0ggvjhDf 2n/xMgMOZ 3KHVjJR9To kos7Id0kA BdH5D9S2D4 djt5/s6fv cXyE8nbM9m zICW2teep 4fHFO9sfn4 OLicSfts2 t451OYnHs6 FtUg5kh0d 1PYrgpfV1u tE0mH21Qr z8XFdwd+1R cHa93BkSX VINTe2Q8Pf kSiI81fn3 1ZTh0a4GqR exxS1o6wB 7Dv2Gxa0Y1 5DzbN/h5o Tj6HH/3RfX XnL2Q+oeT hnJOnQ9f0x 4sG3dK2SJ Tgcz6i/6S4 cgggB8qSy 6aYfjmfCLu vJmzN+cDz LUC7AP0/Cg +VDG5CH5A fouOedzv63 Z+tn5DetZ 8XO2YZzkiV ae9FraXy4 QPEZl9CCL4 LqgbUJtin xcKF3pM/IC Zc0dY9S3Z n9fpISS8gK 5TguHuHV7 6Skl8AdCma uoQtiUXsz SildnzNptq 12vf088DJ Y3nufp4Ldb 4aY2r1Um/ tUv5R2rxOs CR17zXb9b LJzwp06Jf1 ecwuXM+G+ yDDIF6zbLk l1w+XszXl tVJE97fX2Z 2WrytOUeX 6HzZlw+Wlv sian8VhFr xZzehiY3Kn ieX/T1QOc vnU1i3Ne1U ng/BlOFg/ wYsOvJ0Abq 5+l9nwa2n J5ScO1s84G 1Mb5PgS4x 4Mjoo1xr4z 6dE5UonBb 72bs25e57O 8mRj9Phfs xcMCqPl7Lj CcvnuXnlx mnbFWlc0MA Mc/2MZVnU Z6xMm1R2Fj GiaJY1R1B wSKO5Oy0wp c4tlaahuC gEOWnpua3g 32GYP6dwd 5aUop47tbK t0PyrXMnR [place]+cYPdmc PbBMszsjB 6Cwau+7MZ6 f9/6n9oX+ Frs9VaNBft maHeBNvTn BM4ZLapFjB mG6H3rYa/ YzkywT/PEO 349fZTLC+ T2HYi+dZGv sjyp14WEX 8tnSohRfev J+Jlpmc7s HWTLhxxgy2 Zi+bA1sza V96+O7cvLA dj+0zbM2E TNycDHw3iT 07jmwApPb tgOf+ibexH c/+O7b/Stewart WWy530e5ta xLMfus6ET 60gsUk1P+7 WR9/YkGOD lk2qYv2aey U8Bl7j6RG jgYKtGbWXz 0+ziDiMzY Cp2eWaTy+e d1RmSrqmB muzd+fC24z Op+qWHHZS xzI5InkgsY cTbqwDcDc Klh097Q7YT 2rXWM3R9I 6SJGeaPv1a /cCDzU9Vk I6Qcx2J1RZ 0ZPUCZAP0 8+qr7rJ9l0 uM2IVDa1W OQejz81U6Z LoM5U175e 7wNntpq+tt KffpGrO5E xffq3oNCG5 lBbn2xrWn 3V5ERbAO6O pfl6UxGqx 0aKV0n2CCk Va5KMqdUZ 4rrdKugKcB 31P2UW0eO I2bAFxdp57 Te3YQ5O3S d58iS1KzTu uGFgZk/hb zblF4pAXFi h/9UmOD3p lcX0gurTfo nT6TBQ8co n0IJ9BKQ2+ pXArgO22g Yd4Cw+NMeP RHn9lhkJ6 efsKVWDIkj 9N33pN97h O570kF7Szg 60+4qjvy6 8WB9yLIbFl CmhztM6Vz Tr7p/h8+Z9 Xqf4KzlUa p4YfT7K5R0 y4pmhW5dd eePZsbbdjg cybNNvXw9 TPclpMfkWZ PrjxdwudM eXYkx8BvU8 aIt+LOFm/ RrWe7IBtjK u94S3dtSS 6KZ/+5lTXe yUbYJp3fw W/hr8+ZdLe s3kAQ6uA1 M3rIQ4FQMc idCXcZb/3 MAbHk2Z/L1 j3i9rP3pI p1ri07Suyn /pdC8q6s9 25nebXgdpZ y0Q0rsg3s c2GLt7ji4s 6FsSCY9c5 shlaql7vd8 MsR7LpbOP swcLGvCv87 ONzOhFtV7 qZsL8/ibme ViwZdS6i+ ZmfCZfJoWe dR6Y27X91 xgnaeoA0ZB vC9DWt87g nrJ30FcV4z qtclu4JSP vc7I/ZiN2K pBTAmAS38 flVguplo0P GLcMaoT9O W+zBhSP3Hq jF8SmfdD1 tRJm/RPqvy Mr4LJ9/RU /Ce2wiEr/A YqILRh1zg riFCUMoL4V ZSxkszT4W 3PKP+S1IB7 ngm/NN9dW X+GYBbnglz Ha0ux0DEM LatvJoypwL v8xnkHqkQ yJz27burww omLOHgekZ cQtiTK1/9U oG2cl4JlP 2v7mtdh000 JerdEmtXb cn2SIUwned vCD3I3t7u 44cJ35xwtk yqfb23r9R /Utxy+j3C+ dXpUl/n3m fCXF/n3mfC TRQi2fvSP hra2CmBxQa 8C3a1Z9yN GyHtPpyFtC bTcxgC7SO 8+GpZhEueS 1jvmaBN5i vgfSbYZPgZ io4nHD3xf mcPduGRvNL I585dACFg 5wu1zdtnmx TX6Ktovfh 8ATRX9TioX 42xlS9JTO Ho85M7WKqa CRc+4/qND Sawbl8gi8t +LGs2dqrv KEjKu4I5X6 tcjZudCTf RjVtCET1lS AYb1DZ64R KqWfnmnJVv nG65vtmMv e17tcGJ2AX SlfmNF378 R0mFc9djUE mGiel3W19 PAaVoJ5LKo XbudSZcKI /nXmfCXvx2 8xvudUaft iNefhkdUp5 k2rXosvrm kEhIRi1mX6 O6xjHoPcW f5kGERk2zq am9VvY2p9 nLaEfLY97S /QSrjt0vP SAqV2RTSbZ v7W0L2tEp uZudCfMbcz l8E87a8oY 7E+6X51u10 FqGi7VAjs 8OHU+ucvpZ MFi2edNdU AzPaAbwSjh yOKMCKjc8 s3VoY80tft kNz6Td+CF rX8m+u+HZu 6siiuv2OD vu0vB50++O Z+2txEMs2 0Q1g5Btdob 4BTQczzKv 8c8vna1If2 d0LhMwVM5 D8+wtieF59 i4+PM/eQ9 q8Fi4/TYtf ea3c3GtFp 7npWf5+w03 VnsdIXh6x LrbhQ6S1nJ Boj4361hG 7AYg8Kdhr0 K7BqfvGd6 4A7Z0krdBP 98G/e3PXM 0Mlaxb2l14 kTlYV5mV0 E+Rfvbnpmb JBpsaaq9d n7fW7Zv439 uprlrK8lk r5j4xvHL14 1ivDh100C nzHs30vuCB +lY2v+oqd eeDiU9+xMQ 8sMtb+ibV jX+9zDA9Cy p5de/Pv19 2z6E7vWXi4 g0Bh6F68A KvZGkbTx90 IM0h75Jnp ArLu2Qfnp2 3H75o7ZnH COVd5P+92Z 8J1K/emPJ byrMqLrnVv /O/YlnvXL R6L8kQl7Ct 5ynXP+rfk AkjSXM4ZKC uLub79Z53 pnb3H0NfFK i9DOI5Muj y/fH2Lq4Zu dybttpUX5 N1fepzR9Sj teaUk1MC2 IYHnjNcX5b 7ECJ727vt v7V1l65rUN kZnwvzjdT c6k/ZtzCh8 y+4rfiqfr QNJ1utXvS5 z1T9uS1i6 V75l+/4Uxd q5+9Ja042 QudeZsBnpV tk7E0QRd+ WH6cE2A+51 Ods28LuLx MWnG9+Q1eS ovYW27pL7 vbcO8Ptx0t QsOOiW8LK 7kut6xAinr o93cmLdL7 Cjxt4/eSga LzjhdSbMP v1oniSa0nq D6OnXD2D7 2Xjzd02+c7 DgDy6uhN2 JlTC8Sg/s3 e2Mhu+aZx 89wiVruBGJ 9mQuone/M xp/pTb01bh T/kKYq45p kMO3WnAWXr mM0T33dMa K/Mbe/c6Is w7O+0/VdP idCbMpDfzO 5PDZdfglp 581+8llKre iLKI+sg4u 2+lUqHoF0T N4Ej263Il IQ5cHlJDkq yY8f/ovvl dhe/ZOx75S xoi1K7Hm3 6awPZPxZtX +/Bq9Ge/s LQsm8DJVaZ py5NtPoD7 MJ/c687I72 u4nt69Fyu e+R3Cs7bsx pXDueyYs6 U38lfJ5q81 6doLWYp+e 6JQwc1uWNY ombZJrh+m ZcJVT75+uy BN0vakvz0 +m/SXXbiP2 6N4+Yo/up xc1+4mja3d p7q6f5Kgx GgdAXVxsH2 H07neSpId 5j22TcFoq4 5BMS+Pc7o b3nyarV3ev qjgA3Sb05 811gyb9D1y Gr37SkH7t zrM9S+OM7M 6EB+cqYHc cUQKd9soXg +/UhDz3FW ht4DhGL30L jh/GIeMGx jJ1prv2HrG VB6zahavZ yzdLv63k9c zV25giALh yEdasM8Ue7 /+o9Vlfq6 shwEnq35v2 i8mwuy1w/ vqe/+xjeXb +8SfOzojx S2SqSm7ykl sey5bud+H ut5ru/sec/ 7RZ+E+bpf +oLWil4e66 PEEtw4rRd tsDG5wu7Si MRgDE7sZp uS5aqS2L2P Xx+hFL4TK VOJ7V9vKbs tYppqNreX YZ0NvMDwgt mmau6ePlv hzC7uzb3xf 6c1iN/v2c /DK95oqXfA 8y4mUXy0P yy/3/5jWMO 9v4cV6DG3 +42GX4/50y 3T/cn6A/o Wwr/lDBvH5 chGI5cv88 qOPGZKi9Ph vu9+u35Jz ujFifGn80f t25nrO/L0 bWl6s8Kgej 8RguNc9yQ 692eklrhn7 76O5SG/3/ OmPXcuFEwS YHWH+aTyx sesB/l8Q3O eA/XT5j9+ A/Pm9aebE3 J5S+djh8P eOuhgWfeBb arBEW933t XZwV12aX8O c/mfX2Ugv j5UN76de3z dYtpruzQ3 OxD9c90hzJ e35Eu/E9v 35NHqg6+kY 051tMdyeS 6VyNxzuWce +sP9avDul 7zrP86GYQs usxhcfH73 RDYzgtX0Tj 15VJkyyM5 1o6ad/8hJ7 aWVNkt7MF w20dflG682 cc9yXDtRX lPZi7h/Phe rZBikk1q6 pspvzTXaPd Wjoa/tbSC bepPIoeb+P AH7s2kQdw xd25+62lE6 6V+1/PuDu FT+ehqNFuK Q2434fa2d NOuBblJhdr vuC0J3yzj FQ7vL09yTI 4dY83u8TN 0nfi4k7poD TPqcdvGW9 HvGScDrYha 0AOgjwf3U flut75KVkG 6G90DunnM +z8bUzFtzo xHi/Z42V/ Pi7C31cZSm 0wMUkHE2L m2J7K6qVgn j0UOWfwK3 lpu9Xs6Wfy rAIwbal9x qz7ilxfftB 9B2HBc2Fg A32Rd0UJTl 7kPouI0X4 Pc+ruES+5m WZgIV8g83 ndJKx7jvtY evuwcnh0Z CaHu4SrC3o 3ZY+XPKvy AkUDsAXv94 RP5WNes29 O0idYz9jok 63sTpqj1q LbOs9FaWr/ QXEQZf7pP Titrgaz5vf iPR4uqDur gdg1DC75/a Amp1dWN86 LrsaGtj+sv Marco A/BbqKgx f/e/8E2yHt ya7tl/v3G +KeXIdyVxw U/wFu3fUQ /dA3ujHp7H kgFnHbyqM p21ReP+Pt8 K33idwaFY oIrbb0CYPc SU3BB7vfh 7Zn/wZtp/Y 1aTyB2xcy VlIQxx8YT3 SduFYerof Y+mxBk7S1v Ni1o330K3 84Q3bfJ4cz VvZ8WDN5P Aeta/Ncyrs y2084+wln 0HZ/6A73rW gM8po0dDk jZYc3evNvE rZr6dKtL5 q6618ALX1O 6a/YsycXO t4YuUdtG6a jefwVKYLk ejou1qPp0N D7J9z+Cbc tNEJMe5W4J W37AwaWy1 JuVZm1/TCt Jh4JVR1h0 uDwWsxFlhK HeSlxuBXl Iopwp3Be+/ xZy8BOunw Kbb/FauBiy nv8chED8u 2lSdAeRB1H O8bNFpQw8 QG+Ve/V+Ur szbmCEeO1 Mv3nlelWnQ R6n7iKpbk jR35kZWwxT o22IHbie+ h5SUoAbkbV ahWXfY6ZT fWP22eZb7v 6U3Lp471O ar7i+KnNvH f97TrCc01 m6z5gLazY8 FkzisVGPZ tv7KLoL8/m fXovM/bp3 y4JtG18BX2 8Pj9oswKL orTpvCfzgp uQs0BP3wo czgk8BDgCA aUsaDmxr/ q8/45oyRpt e0sZA9ppK LAYl4PC73q iaI4df4CY VlF5ylZixh +1fmWbfth l92C07oKWx pGkkJS8ta QUivLaK7mG fOIPAhxuS RWve13gcmo CxBai4X/y qhkw50jz8M y6lgVExly YGl6kxuxRi K/6vz0sPV d4+IbzPwl6 8VehyK6iw ZB/rMS2bCM c/K/Z9Xqt 8b7IJ0cQow ds7c7zu+/ Xg8fNw/mVv tQhs0gxdk 9Ay3kJTbQ6 mn9mjzaaJ J2PkI+Gvzl 2+Pb5yQSR 4CPkVvDHVw 0a8fqUEzd 8M33zfmlht RTv0vNC17 bwA7vuZstR Bs5WWJJo5 km/t3eJBSw nHr/5AasG VMcknr2Ynx C6h1vW7Kk fZpzgWok8F K0r7lfRxx UievKX7NkP C43sgRmPQ 86hvRcvv+s Ashleigh+OZQm2 Kth5/XQKdP w7YIZ7R/Y Fg/OOWMmF1 091x+48mX xwn6r7ouw0 Zc7z9/aN3 AinqW0o2bc Stewart/Lg9U77 RjIgebEotQ IpJy68/Gs FAkvcu/JYy wBnVS6btA qfo0UuzGTc zRdv2L80/ 0oNh7ERolb r2Pmi4Ahm e08kbm4sgI j2o6iv5cs +txZqnrzl3 HvIuR/eQ8 6Te9H+w5R5 maf43VnTy m2Ak5B8XI+ Jq3H/gXDE LhweDx4Fqc v4H4QQLew rKcvpGhSd2 RU8S8W4y+ gNKEgtw0Rw cqCzo7jDH qPOjzVfM3T fyu7igq8g DuSeI9G6/m LiYNZ1gav i+l8AdP0da 3WsTZvbVB 45cRs29nvM I80PDRFFe /ql6U2iuxq v7M+zvfHi zZ1ym51jOh 9C1qn/3Mq 7MRfNB/QS8 Dp3xy153f DuxiuqXmKD Zm40V0qoS 3+tQHsg24c 05990d69z 7M/j8yZp3N V2J7M6sv1 8mW+F3mJ/n tyXsoZrsT /Y8zckrk/9 iFNrFxu5f JfclzK/wj8 3BDqrp96R jc65wPsgct S4hM6Cv9x sASf5W0rlN vGqI7/CP8 qf6T59HkXz ql1R0jR6J EB3qOk9gCO asA1W7Ut8 1kllhT7lss gJbc/2BW3 GD1jS01pny jxuO9rENG /6e+bdeUfm 3Yffknk/3 CH1l5FmiWt M6nbITd7A x5dkxmgrAj ctnUPacaX BW5JI0bJej zBpLJHlT6 68+hwlpD15 mPIsymsob 56LZ8Zu+qi g6xq5PO2p mw9XBX2bVO /snOyO8BK n3f4JKlxnv /IYyraVV1 PevKQdPeLh FE588iFTU kE6hdEg8va UV9X+m1dC E9Uk78ISRG Vn52r1k3P u/jqlXO3us Uak+p3tI1 +XxwGcq8Sb d1bPk3UAg a0M3EM0MyX 7Aky53vNs bTTOF6BmO9 eT3MjEtCt etkkrkE3ka cdCuMgAjg Yq0f0K16Cm OooG32pxo PDhB2Tu/TY 5rL8QvJJF 0zi7fYKyu6 re60iAIj8 GVlyN4uF9+ 1Pv66XoN8 /Szb75X9Lf 2DpdC/siX lwr+8ZrfFx bKyHt+KrO 1l+p5a8EIc zsBp1TgUg fM0DU44g1a dM51Cbode aWPbnxOshq bNmTZctuW L9IzJosSG8 HKH2cV7Zg C0xDZIex4u Zrc4t4g3r VmI6baxch7 sydm2oT+Q x7Vz9znx4d 0I4uIB0eq bjcm7wNS8X tQpHCf5XS zeSd+uHCc8 6e8MBWoMc k+Awdb4g28 95UDQ3Ze0 Xk2HUGp1h3 w1wWgzQtR a/Yu3s9EI1 dm3ncgQnj E3+GcrlM/B pF8pR1Wk4 vVIx+kdqyB XFfn+l4tX 18onPnraOh Mu8oE1L4z yr76lGfz+X eBC8hcl+L h+d3a09u5A znI+2ZtDM UyzGPqXyCZ RLQNorzCo gbBr9nP/eV 8U2NhYxY/ 1jL7Dvfrsb VjW780z7+ eu4Mjgd+PG /JmjI6zS9 qzjXDbHx4p rFcJPFmwT qCmIvzDo+h cLf65hIxb xoA8a8tOYT +ydWUeRk1 m17pOsT24J TCaEt4b2/ EsZlRT634X 8eOUC8o7S 5Enye2gREd og2yTvnj+ vyd8pTVoJA hjrhgxT1t lpqIxma6Pr jEPIl2AUl IZDPln+6bh fRi2IlZMj 3EBQFj8iME lG1o/ynX3 p0vgCkM9+M bHF6jo4x2 +TVlg1bss9 +sz697Hhb 69PcT02ceq Q13lczbCy u/J90NkyBC r0Exs0qqf /zUnBV4qoM xgk043lgF m+b5rcAzkd dHUK6uegf ioeXbOh3P9 mdEh3I8tK LObi1jrtbz fPYri+Wyf R8xzlaf4au 7VfV9+tJa ucNdzr7+hK s/4cqJ9sZ L4CD4kjlOh JCS2fIxeg /89vlBeX+/ mr6/Xz3ep 3v/Hu/Tkxs /dhhM8b30 tMJgwk1jYh LxuPXXiHR 8sqwjThWuo mNb74tyLW 0SRAMmn2BQ GpohWBYZg dKUlM6nsvl kAVBEdk90 eVblxQmOJZ 0t1hmSD8j B28u9aP05c nFgFP02KU 2tlusrq+X8 7pn04UCay jssLwBOEa7 j5hcz5wk8 F79ByWD3Vs QvQf8EK54 ctq+m7ZsrZ tBVuiA6d1 mCHfVyGG5/ U1sZDv82A 7B1i8KpDTz Jeffhi+r7 CmTc5V1Hi6 tmCXbRXfs anvT1lsEsx gq/s9a/Ok qOYFfNEeyf esm8RbN5j bXqe2u5Mui OL+0W8p5s pvzTffNoXW F7CEid2QD jr7bABYi6a WkpjS4a5h rh9t4rhTBd jrd15eO9A ADINe25txA i90+p3DZN xe+fUrltnx +UyrxtWpm 7MHPkr7mew kelnHefES 3TLx52ji5d Y7SawkeI2 1kp50/QEl3 mYtmv4mYP /85CuWQplN srwjlvXUb aVuTo1Ug01 8OTrEZ5w5 RJVzIc070C p2HsEVzam mBKax72xvf I88Vry5cE e/Z7tQ/ze/ bD/O74cDf lH5xy+Feli aiJ2UP95q YIl+2NXjge 5eP5k1fHw 3g2bV/0vnR 8Wywkbqrp yH3mklQrjf 4dblMBY2t /VudZlRfVu S6y9ig1m/ t7tfBvO0li k6zVycO9x aXngM9cV2W b+PhDIIr0 9nS+wu5VTI f1HRIgJys 2K+kN25p5B SfvlXOePD xnG52Oe1Eu qXOWy4962 pmKqyvvxV/ tdGc4h2ny cbi/GfrgGI JGe6/DXHN /eC/mFbKeX D90B0Vx/S LI4L9qtHZ3 wYyA0i4AQ W/Ewceeu8x Zq+4Pc9X9 4VW1/6bXOK N8uRD+YO3 nrRY0i8hm/ yESKO99cN eyPoqU+R/k Ey0XHSk/m SC0yR3fTIv fIM25aXvp Lqbet5OtBP o4JBvHhr6 52B6v4A5ng 1bQya2ung 6v/6AR2oYp eD0urjDkf Svt+IHuwWY aq9a1gUs+ g/bDV9kX/k zr4avs/uv mEfco3f6ku Fwb6eYeSR p44E4xv2bC j1iZnkHLZ V0QY23s7gL 5lzTZz0qH uXFz/eBbpv lC2SvF0Ci 9yPr4+sxeU Oc0Byx4Oq WPBN/hI7NW 6nfbAr8VY Wb4Dp+E39V 64FF1/EEu 4KC3tAOGSh pcFV9ueza ErVRIFlJ8p Bhb0gZ1w7 1+WnXYqvI0 5d99CfLoG Kgu4zC/XD/ MP8c/bEV5 0sxWsnIOmI Vz/vBk4Vw 8Z3zoMpJsb cMmvWfXwf t2swJh2As6 TNDyB7rHz h/SfWxtnrw Wqd+I5u1F ucZFl35e9t bIu/TDXDN 7vJ9255NQq RBTDxy0hQ 2q8mIndqX9 2WPQW3Pdy HSrcjJZNpd di6FSYEfs an+f9Nn1pL asLYrunXs Z6LLsIhhO3 J5pFFlIPh /japdd+uEt 71tQfUE6u XdI76KIF93 vqp0xg7q7 iwd5vrm284 5Id8oTKfl KtmX2fTDSR pQEjq8ln4 9w2urZSgF3 WTLmU8LdA fuqyptXUjX K3iM88jgt PR9+SZXeYZ t6/Craf8u Nvz/y4bZU6 C8kTEF1p9 q3y9M83BCd tQ8wQ4hZX +Ys/OE2lUd E8xJLfyMn DxO1B1vhWE KrjhmuZdE c1iYti+Ywe bcSRXrJXK Y3sCQSyYTH qf9gXsa8i QfJwWu0AbN 9+UHrynNp 9115uBbhoC WtRbjkNvj mK196uxE/R ZyFr2C7gW 6DO8lI7GD+ 60FMA3hI5 1DQC6j02eJ cgz/MKf/D vFcfbURqwN kB3RMFz15 z5J8QwYgrI o0vO4NXvP /eTJLwhzk1 cJh/RHdY9 urNdK/eLJT dr+aUmvjD OAeZkcns6u 4ml+AfnF1 6Gdwx81+0p lXoScz0wT 9b26wB8+T5 M5xE2/Im/ zD/Gi5va30 6w7vP2lDa ui9aA/VvpN 9x0/dvCDu A7u8V7rLU6 z9LzIxGf2 CoQT4hT5nP NnoJYa+Od Hz7sc8YFJ3 RcrIn6s7g 0a39wziZYt JY7Kk74qG dK+TVGq0vq +8Pc/H96E 1+GH+Yc++H Ofd+mCvmD suHbbGIyOE 41T+6Fswd aywSp8auVS 3ZtvJqylv OPgvmkquMN hBm1ZZEGb MioYh1kEb7 g0oIO6fY+ ktkRGKI6nd qnsy+N4fZ 9+pz6gcqYR Aqodi4EtC 3u2lLgh/h1 s94W05/SX 8k2wqFaf8M c+3/01ft/ ejVCiA1kxA q9y/wzmes 5vwvjNUOwz JwXmO1+xd 8Hf/05eGtF IRzn6OOj/ +m+cdXSV6a TrZw36E2W vWjijbv0aw fUzVpbjjz +8gbk5dHyA 2DJc+hvDY jm26LqTvx1 H3KQVi02/ /pwlxPtfPn o87w4HzkK C2CtqcZc6N e6SOjbmmA R1S758jW+z q3dSniB9Q 7fyS3d+e/w KgrtK0jk+ /3/pnVsEU7 8ZaFbdktE 7t/0WD4GG3 RGeWuavcP Ujr+TfcV9j X/wlTt/rn LOPpGm/7HD vx+XGE0A1 O1+weOHes5 +bBThKfa/ cvpcfgJZ+m BjjrM6wFs oJwWOyJ66F wQ57fUk2U vy46oXPrg/ 8JUrfb+TN UFlI5U8Gih fRwjrs3mv nYGr9H/78A TvDr+TfjV Xbqo80FcQK 8bc0+186f PNcgOD6CrX WEtCU+1c6 T0x1Z9QlzO je6j+671t uXU6s4aNSM RbaCpqu03 g6na/Xva29 g95SaS90F g5m7O032PW 20Dgm6PCd Kaeg8IipEQ 1YQ33/WwV bt/hEl40mr 6Y2Pgke3w l3oGmxbZl9 r/bczHV42 630pl79POn 9r9u+DbeT Hqq9oHLx83 BeGrdv+OO C5H/xRFD4e JUs9nkPb5 QLO3rN7old sP92je/Za KCdfG/a+vm uEzPTh16u q8/vM/av4v fNWo+U4tw rVy/+urJjw UDQwvQviq Ce/OrC2KvY uhCRK+asI 2J7LSEGgiN t6V+dqqVd SX/QtbNeHG l633PEfMg DE2lAbd6G6 LQ8Ld0noL b7M8MofI6U 2G2eFlyzM XZolvuJtk/ Remavfvv5 OpmvBVdeKr 2ci6D6Wid a8bNWRSSAL mavfPwzte YE38DTW2DZ GpJnxVnfi q+nq8fnQGJ P1FOoeu/N WLy1lrT7o2 dpbRh6q8c ZjiGI8QwiZ CSbSxjv7u /tmunxpduR bxnHvESy6 a8ML48pcGv mrCsymvyf fJVZXDrTmX oe11K/em/ H7s2rmWi5d 5poWfGjdG sGQPhocCfm rvoYGhmrS fTa9xPEHid IGu3ebP4U jLse0UIxUN 6LqpvbkNb kraiqUk5uk B5fi5hVFn wnQgx6eRTY oDI1QoL3M KX2HPb3lPT m9TISoIvN adIzzJ8fQX baiCcom9g By5uh8my7l 66R1YkNgG X8zppXqlPc qybt0XmAz aRpvx5FvPI pq5qnADFr XhPZirhqsQ 9RyuQtSJR 9X+XjgzD9y tp9+g6sRV Gt1F9ck3ID LQ7l6XZ51 y+n2pMfiwb jPlUZRNTr 4L9gj96Eop gOXqr6Bp8 fFuVbdUk+a 5lHfl/hbh ir1vfwG415 JqDTvNh91 Vep7VtYodE vlML25Qpg upSe++lO2n i7ouWBWaJ GNmZwy0IwT +xaoS8qT8 fkLekj2Xw+ 1mli3o1hI /c0iiNYsV0 b/p2iMOwn HQDOdmasLd gWsF49IDb 4xVIlRymcq +Vb+bCndS i5jBthUm4o ElOrA2yYo E9yRBimPT9 lZZp3ATZf yzipJ1kU5a vhB4wAD9n 8xdf9h2Dd2 PIRs3DLb6 h4wQc7tzGc +q/Zcxy8E 2TVJrr1M4p Tj5Z7JMdy 8rJ6Pj0aLR ap9EMcShd yh9lQmFvuq u3noxRYq8 7cw5AN7xbK FwMXvAWO1 NhjBWE+48N 8NZTZjnQj irCbuse/cZ dk4vYHloe vcgMhbL9j4 q39Go29v5 LHJWo/YVQp vctfugzIZ rqvr2vDmrX xgcsT9bZ5 fozmqMbfNo B2lRcCB9d 3NMjmy04hw fYbCh4O72 WKvljAFntf q0k1vRbxq t4E3slvT0s 7WKVM6/8F mE7Vc5y3RW RjnWD6jWQ ge29eogF3F Kh6OTpOhU tKQsM5b2A+ Sb2Vdclm4 KUeIugcm0f zIWbG+n68 Lfee5mP0QO 7mje5bvSf XPaiTZGuIH k9vZ0RO5e r3jngpCf5A zp4Zpg2/b cWK3ij/v9C 3D26ave0D 0Tw3Xuh+bG anVM/xk2j NUq/sDQvzB YU0qs888S /b7+V9EbKr 7sFw1ke3N To3w0vCEwN QZrNWFryn Zr2LyTS0GD o/vMQtLDO k34rg76VqH 1QCZ2s6yP IFDLRxt0Id 7Ydjv5sDd X4l6Dv157V sNl1B8lw1 RjM3oI7O3w v7mhQQux3 4duRTjnHeG Wt6VoCA3d W0yaQBo95d yvBGt2v6P Xe+IAIR66V siCIzm0ut 7Xwaix8ZfX JVTdjy+h6 skutFBSuKv qKh8oReUL ktti8cp2V+ h27MbJi7r qt4keEU9A3 TUEm8wEpo +sJWCrJux7 9ORBWTXYq kUFiJ9IqLa mbb5S29d6 Jywx5NyvTH 1+Lq6cMdz ZqhEPiDlxx XAWtmgeLn kMZdvKqylv 9Pano1xLy kGrdL8LqE6 s4ykFxmXR 2KA6nTqnVI 6KMdYF23p t7CARbgh2Z WT0tlQHSY +R6YNy53no 1q7cFp/eg pwTezg/nQU 9J96D+29s 5wBqy8nWag tUHlXZjK7 m/iz+YjZ26 MHwVBOuVb dXitA09f1D ID26aP2ub gJUZ4787Be 0e0GSpHqu d+bQg2AWsu pGXLFDz/4 VO/A6AjYiE pu22wgi5W 7vG+NvSq67 qZowTyIwV SjbR2tN3lA GUzXhyfMy GCEhFBSU2q kOTNWEG+9 XJCzgg6oE/ vV2aed6CO rEhUUYpmpP oKOkWip5s Kyt9CXKmdr PLZYQKyzW ypLmxstmWK ecz5Au1se Vw6q5SVEkV +puqCbchz AEk6GXnI0b Mn4l2J7s2 aPXpwlppAU ii47Dha/e 9XAG6y8MGl Qs5UG652q H22poUuEEO +fTxlcgYi MNWiH0rSSN vuIwUhNev U6bdKVNCV5 9CpSYf6Rh SE14/oy3hr ynaYho6F2 rz8Csbudcq ic7UDQ1+m hJzr4yI9Nl uJqyhmuR4 U+2rbxw+lj 7eldSyIm9 QL7OG8A4l8 iWabD97k9 f4juABgFz9 A1waq7KM/ Jb2i0L6Sw3 GW/xVgVGa rAvm6KSh6E mioGru3rY Dzl64L1tM+ NNOmZJGKm 9SRhGam/xD cO1GO2tp/ 1/pg1x42RL 6CaTjBVT5 8OdRDEC90k Zex80LqWp jXlHuOTKig xswjnA61u N0F+lZ3cRW FipvXUxrN TvBMke6kqA Mw8MXBoUq U4H06xBAJ0 b9d06jSCr gn3PsmNwpU LDjdTenQA nNWFPuodNm 2/KsAM409 OP99SqXEcH RBqIxU5oG 2HgmjOY0pn r7IqbQ2A9 Zx+thZYnz6 OqZpkr0fg 1YwZFiiE5h 1P+wcm5Tt ioEY/Q8+Qy vCiU7lPR+ AUGEX7FHd6 YQtExRcBG RcjO3r8mXt iovWcSNmp vMOmwUSp9f 5LqORj7gT V0xEVphlJL eyk+2KidF T0Y97WmRvI r89wJwLo4 Xvz8w3kIyG is2RlDCt+ 3Q95D6kEkx LZCu1j9nP QwggI3u/Go 7TkrxxPNn pLvk8N1wJQ 26vG2/5UV +DymvJ57bp 1l7xZ+eDv g4VXIHlznu K7hB5LrA0 ut6p6O7qQ0 unZOVq4ev VvSMOi7lcr /MFKr+JPP /8JIrU7/48 swUjspPov xXpbc14gG8 sNm7H3nbJ Z4ftqqMWij /JTNLJGL7 qsJbppvZo1 yR0tAuihp 21DO2GlT6U HZzRqLCMj jzFNUoO5r2 t6/qapPLY 3fR6D1LMCL 4D98tTJ8o vJm9DsxOZ7 6T4vkN7qs cdk+mh7uqp 68ivLmFNj 0+ii5TDcWo 3n/oao+B1 NwvniC16jk i8myXMm4+ 9CS2VGO5Mv d1huqGHwI fhM4gurQVS RLqA0GxOr BL45ET6aYe l9VbZzrUA a23Oy7Uj5x 5A9wl9VzT xa0oHnqYPm UiLU+DjZq qs1s776OO4 9IYKMmvKl RrN3MwAypl +U4lrqtgj I3XGAFH9tn hhtPaU4Gs YrQ5sXsDct 20l5TlVVT wz3aGmvO4i zPHj0Y1Gc kmqNXyEGIV c3szF4QUR 3Y6/E2LkaL uhgpD6AN2 wX51DTKFr/ /1EIL0Fo1 s1fI+eFZIZ fsFXLJjVN 5rUJD3bq8z XjTs8d20I WZyOUlcnn8 cXgqzok3T B6p1SL6HZ1 phOsRk9x7 MiyiebNFQR 4Wyyiz7FC 741vFa+SIZ 1VenANenE dcMwrykutS 7lV5/BzvB XlYIcFEje7 8Iju85hI8 ikKg7uL3C8 wYpGaUS2W CoT4Kk7JSO Aj4oVuOIY BRyykNHmpv OuJL5cfmk 9fIUbttbV+ 9ZXu0IjZV D3vcMklQPg utEe4V9u3 ILaQYHmrCI i3uXLR5fG +WDfsuobXJ jhUQh0n6t 9J9CBSGSeB +j5FqQDq+ YQMio2Rmj7 tqtFPg281 nfTDW6yZQY Ar9My2auy p5wfswcXNQ 9ggWWLlcC T7ckxOXUfs s0YJu5g6f R7CcMsSbuP PZWSGXPBS MC8jiPvHh1 x3ksktBW2 ValJuMb5+h foa5gB9ns awKyej30l4 YrtoZa6Kf XkA9zdE+Pd wdCB8gumT Xpt+vkxo9V eog26HAr+ 7201+y73tF XSpr1ZOZM v21be004f/ P4wCtubtd 2VwwSvYO6Y 1awNRPd81 UnT2v3taPm rC/U1/wqy jhYq4S31t8 q4AMj1Wk1 Xg82eqNu2U evBZzFsol F/qu0OrArU 8+vSqFee6 kJrwmfzwv7 /r31P5EaU n/1G9d4eus Yy6BrhuBz pz66u5b1Rk gcBE0U4jx ElkA5GIq3H hNeFZlrrY fvugMCHEv2 7kube/0Ut FM6QJnhlVc RwK11JQI3 hSNiw89bRM pU729+6jR ztFFETbb2E 3E1r/IKfX 51tFBV8IVc YawHSBe3r 8nDqbw0uwc O2f/3UlNu JtGfe4cnnb tbqUmvJoO t+Je57WST0 v7XpP8FCo y3UTWvoUhl taTk5FNT2 aHKb7XKAsC UzZ63+VGa mP55CXJ3M+ wJAB8dOCU 9B2P6jZTb7 peHrx2rmA J4a68LER8I guI9JSD75 CcI6rU9T/W yrINnP2jD 9zQjj6md5X 060QCQO8f tX4eXWoyhE YvyQcntYO sdGSi8D+d1 O4sjJxsII /pCtfjzfpd zItJ4ye8t ru9ihtRh74 kvjGt9kjJ Xje1/FGuu6 kg2434ES6 Q3k7iM21yc tlWhe4xqt DjUXZYAvwL R2ZB93aY7 epchvY8JSs G8jqZR1VX 3iGaLBs7o4 V90TzxiFT 0fyEMAp10Q 9v8umyqle K0JkRHimr8 4k7k545nF vefUmzvfmr vtL9TYgBd pybMSgU/tS fsJWvlklv V/h0r6Jv0j /RTTzdUI8 5iueQylRsr PzvHbD1jr uXFyli/KrQ wVRNuRZlr 89xVTcabby /npmrvKYa mlzFr4x1+T SjS2obWmT Do7gUCedu1 ePb5uKzdP vzubmrcXUJ EfkZ3TlNq WjX9ju8e4h QYXmrSzr+ ecy+1tx6oL Ushyc8Rh+ 29hrFB6nk3 dZoQqSw2g 8zkt5jetEU vNeo/JDfg BaxOx1cV2Y vtLV/gpfa mRnipvXkeX mrCXpzn/V GjZgs0gfd4 Xfk1xSRuj 71AuRfK1tw XWqSBYKWW WNM2SdL3Oy 3cSbJd51u 096zUa7Mww gjve2KTlZ bswOnxlM7b kkg2Ae6o7 ftTePgdxXn JbSmPqmym js5RcpWrvZ SHa1PzROw nVmrSbqbtf Y3ozTzoTR tRmxdYKb/m TmrCHizZS /WmE4AZIde freO+alkr l+p7hrfmkg itKVQt63B GWb7tHyFy1 37CtQiHpw hOasJcmudW wc9V2Vqx5 i9Cuar3bmE PjPE8TgIj slBL56S7ar 9UeuxWasQ Bdn4j5dcCl 3J4dnY2WX 2Xk8AN6ZD1 FHo6vVPlN OgZcn77c07 sUgPJIulw UhOWvXqzkH Vwi4Dg265 an5ARHqKjl ulrYmXl3Y b94nPcoptL co8CxEkU6 mW5cR2j/oy 3XorOvdQY jW4HTznNck BWP4Hye2y dFXpgeKkJl 7Pgw5GTi9 jv7FsTTBc0 ugTLurlkD GjwUu26YGV ng4L9BUqq fN1hp/ZuG9 jtGQg7nv+ marco a+B56ttjh Hhhy2in56 bMf2jq16bE 2Br4Uiz6n D0qRCptped GvWfZnH+6 /umKQ86+R5 KgEvzw0F7 NeMgLdrdTE +7affywLe VVlbecvUnS 3+3UhJucv ufM6l7Y1Bl h3IwofH8/ 1ibrXHjI2d MaXzmN6P6 /d8n2CP05q qcmXJsy+9 38P+3Uyr61 1NdOramdW yl7p1J6hm3 /pj4g3I1m EB1dZfyD06 aLBdxisQd /2lYap0h/8 DfPPzAegI Y+cBYk13tE 9qCcEyxhB TSc49R9PZe a/9aDPVgv vBOBs3UnPQ ZZV/8J0D3 DK6Dlk4GEl sLzo5JagF DHLdIKPKH+ hUVagSfUv 2UEJ4u9Rec 2IbpBt9m4 2+N7xFsV36 NRAjf2D2C B8MvpKHhHc mcw3QZSnO XDG6D6SRgp jLVGoC5Hs /mWHE+06X8 iVe3tFMC4 G8h0ClBfWU 6RVqzjzbZ 0iOKiIb4jt FmmL9RPYh j4d/8dhDvK XBfc6+06p J2h0/Gsnna EQ2Q6lSRL rQ4Ba3Ov7j mqzXPqOy7 iyAlna8DK5 gQNP1KSp1 19lXqujJ/M gIL6V99x3 76apM7RflV C9+U87yPV jgDFR5dUve 2ZSPFT89/ e7Pt8jbm+Q BS6BLedkU BHq4XGrC5p DjHd471MG Tiqbj1uHap 6oMAZ8qek xj+k+2rKez JfgzThOpT bVh4S/5aAF QzzLwzSCs J2X3W17l3T 9kb8nuzB9 hPYeJBzo6w //Ym3E9GD cD3C+XC3Ao af9aFFw9A p5wNk2GrnZ Zhwbcptcr j7bEq7/Yy3 jBwRw11Ln wHDgs34ZIQ bop7Te5/1 S6Drwo1jnC dUaq2svLz pxmj39JgOT 8/ZrDiO0t G6TueuaByV RatOzU2qj GwSTW3uWck fri5H2LAA Y5jXtjXCag MVoMY3lCr RR9A0whSCN koOHpe6Xi yG4wlCzCM7 icviwwuEl zf6v8dcJrK eg+Y5WKMd RyFJzpOn5f Dc5ZkTj2A zDcPEE+Zoh 2of3jSm2a Stewart/RCD8ght YOd4eTMSl UB2qOjEyC5 RYIwmrNH6 M1YuZp7W5D P1Fl7X6lL YRorztSU8M 5OBgQpPB5 RwQXEt2u1m IQHDUtiiS fvEyX/DRm0 Hk1Lpo8xg XDcHNwTLj3 VMzvXp7Ke d9VK9zlKfD 05GW1bQ9g A30mgz8roH IytLB4kuz 3uLvZW4kgx k0AL4NE4M 5BrOaNIucg 1fSQHqdd7 nNGnvNMvAG L1MufATdK MEWctr2MPV zuGMJshq7 x5oTIHvdRo tm+ZkOKMJ 2kQcG4u1ry uaJ9vU/ut uxP7WU80ev LXX3Shw0h jwGmqezGru acoZk3D/J nLuzmjCbSq Qbcbe5hii bgs5d+4i5+ 1KTbql4m3 owja0v+t5t rueO4/Q8+ QwbS32E6dR NE5W9FfQ2 PM8/Nm1706 gOZ88Gk0Q oOfEV8+p/9 Vz4jm1/64 cf4aeJ/80N sr3ZZwetP A6FdYpI3k6 fp5kjdUp7 4O/8t1LFz8 v8cXruS38 A3yFh4e+jn PLNf3V5+n 5UhZ32hdEV c661MzVbu Thbsqmh8+u mGQ0wuB8s LJKbNWTfau AOjhHYg9f aqf4WbHOne Ee9FXrFU/ ooLMl5gj/l /OR9+V/6A 1AaIEK5qw9 /fAvHNIyE eAOaYfxkx8 4pBFfhzTq wh1UhVbT8c jJR+AjEeE SkUKdR2I7K 6o38c0e+e UbrHsdMxzS MuvhFmnvT dRV8khOCEC WCusWablK kEk7NTj1XV o8Vojz6ZY bvkzQ6gKMK yw3j6lV8p XZN+v4qdm1 RSp0wpmjU e9IKLk/2oN qfB3mh/YL df0exSu5z6 a8J/dfoez CeHQx5xt69 4Z4or5zYD dGywxj99KR iLgOvgIbo m1Wv0d8W7n W4UUkzPkD qMUi5qtTeu 3guxvS8lo v9Cg7yp94d m83F4Od0v zPPzr7WXME 8n86WJZ9M ckVuJP6meP m+wgpy8qP wxetzLQmu8 ZoZbpzvxu phnc9H64nG jsJPDeBu8 VeJ+01ov9A Bg+3JpzRT jfDse6lBsa F9G46ygHR 5yZy9/XpYf z7K9KrX00 3w+ysIYfXn vmk0Q4Ck9 Ku9Y6eB264 Vw360eLs9 Um1esgB9rp 4x2yiC9Ol vSnfiRx6CM dcSDI0pdL OFm/FeEdh5 62V/BfeaG xw7vwy013g ZwFvtNxtu oyrr8EdcQH wTSgZ1u49 IbtM3w8Kfh Bsog1y8FM mDmDLQQg5S v949O111y DzZyO6xT37 BA13QU01I lwEWQ18ZMk W2fUPOq+e 6K5l8z1Fn0 V1HOga1w/ laMQJe8DuI xPuQ/uPn/ R88r3ARA0J A1qaeakkR K/O9M6sSJD VI9bodrJo nzMl0ASLPo xlvBLxksf F4POESzedk jwLwiDtfR dwSBPucvIV ik48i/Kamila v4XXJipsIN qHIL2wNee MOWpuIbyln PvsV/HUwO GCSAYLTu7J WX5OvHFgR eb0e7T8jfw Edv1bO+pV mWNa4bNIju Q9tya2TNU rQ8yDtBJvB EBczRhWzr KyypsRqs8M 6DPIwYk3E 1jWoCzKeH6 niphjybtH w0cAugtShI DFgbm8LWA GtfFI58lj+ fuaA+vORr 1vuZomZByc vRpu1HoDC cJOS1fj1L6 ownX+pYEM ZocFARpf3y dNGjg7q3l 4KEBQg2M84 7lXsKDT+0 3d8ygZIylw tZz3oWHms zZqZ3PsobS bNGePMIWT YlT0xaqbxq A4amDb052 ag0au9B7Gq Lh6op12JV J5Z844xlFI RduaG+6gR uasFXlaco8 C8VRJnr8g UayXmp0LPR scWUFx96k fmjCIuIwRB Pupv1/UEQ JobwLU9UTr LVJxkD597 LrcOyXJ0tg JAFgiiZc5 NagPy7nGBx eW3n+9F9y 5ey5SMo8/B qjCcqSAcZ ckkFfRj812 RXQWDBGE+ 5NeUzlWZRl vSCJQlijC hyHK3Mk6BU pgzWatM+f 6fAL6yIrDF I8tT7vBeC HKXMCAtZow lvIi0HJul qqv6qAQb6d IvXn2y7r0 dmT00UiKRE 4/nUOV1kl knOHNRqdTo 9wziMSAcl Svn5QaIqmn 6A8krAsW5 O6n2O6S1Wq 2fNTBd21o yqYwDXx0Gv /R37eY8c2 bUGHPc9dd0 OEMch4ilQ IgzHaS+RdY qSIcFy9LS B6xQuR0IUq LpqEY0SM4 tNW4UauYYw hDorck8Sn xpZ9iNFVS4 GkZkjdwWQ YhefUXk3kU HF026PRD5 B4g7lVQ5g3 8AYIo1O2b NHeehbWaE/ YZT0ATVEM +9GXrdaUM4 pBhzWadPc EORQn2GVfr 241NujJvk HHigLuaHT6 VTfocEfzh DHI1Es72nm scF87Tc/t pOv0iMgLeQ 5lGa7/hOt ScOe+aMJcD wdftLfkgS +pCE2NX02j vSgoMQe4w CYTsd8UO7V RgRy40PYV dngT6PGEw4 XgiPZmAji ivRw/HNHew vmJFHb3VV HMNq3k2t7U E2p4Iy2+O PPPT0D1n0U d8OkKlUj/ m4Qny4qpgi POquFodl/ aP5uAhfttB udP8nkY46 1wVPOiuMju jAwO3DOX3 ZC7jBwRS+1 l+45GZWoP nmhRreeWaK cvXGlgiXY O7cAtuxtsJ qg9Mj2MFV da5eykwOA/ +cCDI6iOJ OKbgyPauxR wRDuZPTix wBHtJUqvI1 [facility] L+Y3qu05+a G+zCz+095 jDD+3NQvhF pvXm6acPs DlIlh1+aO+ mgB+acNfu e6er1umiyw jCmzMvMEQ Lmiw4b6i6j RuiSX+N10 HBr0l8IoEq X6utIf5dD sB3hxRBdVa 5xo5t3z7m PkdoeXLllR WU3XHA1n6 e3k/+6c71c R6GKvvx47 fp+/pp+r5+ ZkGcj+8Fc aadHkHZF8f w9/5T6u/c PY20OAbDor i5rZTnJuZ /57Kh0y0Ob ojd1OejWC Fpa7GUhdLw AA+maNR9R 7fdcrVM5UC YR38EmbC1 f2Ie6vRKzP 42O9FcsA8 0gpp5hGAzl oomBlZRTV 2YIZ3YGiEa jmgPsqodX mjx7/qq5t0 C5v8QdAAT 7qZsRXnyrA YbNOIWtXe HTZNHRd3xA HfT/qbNk9 fmoCF0gfEj 3R2ypwG39 HZsnAGECxo 3e/UdEk8r y+EgvTBBo8 YTJ3afYUi A7YKO27sNC XhyuhEeaN IfPY1AFTPp D6Y3VNsfL 8N2PWosgXt Fw4AfMGQH 4ZIrpxthgk YnPyNYspf sZFN7xXwrs Ni72t69U9 yO1hcz21tG 5u0ZjawwR twJWk0C6VV V18K91H/o qcrib2v6sg ZWzq2i8+7 4Z8AtI9tkE 3vTA+zP3u q3c6eX3/Zn jdqNE8RAQ Rzfa6WiPe1 XqWt3+zNh SQLA/kxYNu Y1FwW81O2 TxB24PtR0y 7hnyI8Bqv 91piCQ6/Zn P2q3w7FCm hJPDL3qkRn jydVtKuQw QKPuXdcNcE RBvqCG6dq xt8nDbcWNg PCHjDGX16 Ie11kOi74t m9oKPO9ma D+ZvSkv3MU sSt1si1lh cEATnksPl8 J11MXl2V+ FcIRtaHepu 0IJugYK1W 3jpKz0Qnhi vt6LdBAj9 pey/fSfprz gIp5S40kw JGnpn5e/T2 SwfIn11yS W3RVSRZMbm GoV6mStU4 YKg5V06W6n BzThMrl/i JcCCt81WF+ mGOxo9z2q 9u1YpRZDx4 C0AOvafX0 UdR9bjaNb/ ovwK0Dejj qh5VIzkcOx FT7wLU3CO efp8W05rbo 1HQU3B2ap TJySGoas8g +eos4n4Nl YpHnhXTdnL 9qxhfdkQ2 QSeE6V8reN sOQxtf+Uk /jUPJ0eftY Hakan+5BRp9 NdQg6i1Kfb iDmYmwwwA cud3I7SM07 n8o2nNQaP f7EfFqJYf2 rYZzAzRhf k/gDwx9RKV EKQYuXO5I y+gvUC36S+ 6/I554eKe 2F9fqaBfLc 7ID0LiY6x 8tRehyzN3g krWvlI0Sj 8JFShoh9y1 /4+3B/aOM O5NXCokEis 04SzvE5t3 eabQzcw+0N 4fAA+3NCf YAq556KRJj cX1BeLuue QTtPRfXBO3 JISQCg3Jr 5K87M3573J njhaI4/Db 9z0yiFq6jd 9IxTDb3hQ XU4G1/yOCB tvH3DIkCl lGc/+rWPdB OVm+Eqdmt rvSm4oICZY J88uD63M1 J+sd/adui+ 89El9UQbr c3F90SGa+0 4h/tOqBlg C07kD6U3gv /1w25LmLT RVbPDdAyq+ cGaFmvBwM 8suURLB2/V eQOaLmVcA s1HuQLyh+v JW+eIuCAJ szpfXdA8+m rTEm5u/2Z ZVuXPK2NhC Vg9vQn8f8 v0d3+TNh4f wQ3Mw8FF9 7bu/3Zk9my VWZhfybM1 fSwPxMUVS9 bXqS7/Zlw mcqtKPehzN Xleq8csEK GjRC3Pkm+5 YgmAq8R5C ZR6mWnnKd0 7oJG/b0eL xgq2vFoujK ENV6VN/du hEbjNQGoOn GVwdpPsCZ a5g2MZGgV6 S0n3+XlvR xrRXi77n8p psMITZrXz 3AabsS+3fu A3Tevbm2I QOv2FUSak5 sRmvBePL7 Gov3N5H7AZ Y1/L+dGaN LdtjKnCdwI jXjK7+XcC O09+HXKOgJ PnDFx42CM ridvejUHJz JbyfuD6Vv C9zZJKQsQD nA/E96UGI A2VHJq7D4F uC3lQb++c OqbH8yu2dN BjwaG+5lw hLGepo5OXp +btR4SBgl X6tRx8S1iq +B4n5lLOW mfCY+i/W1o w9unSYl7Q ZSkCVFj9HV dasE40h2Q 2bKC2hUkIy 3f9z5HHch m9Lqjle5Mo 7oqHd2r9r iGy60cwC+9 G+B2m76ne PV4WY/brPV IdruLYu0k x4MpehZ4WH PurmfvEW5 FD0zFxZ5XN qhzStOI62 N21rxsuaRe rlcIf8kEE +YfxrntmfA iZh7j0MtM X6ph/m8zEg JQchAW0Ko waXeuiXPbM +q+Ilwye9 f57Efwk6Ri 7Z595zqRY zHV3P6GRjq xCDIZ36Kc PLc+T3968L M6saTRdhh 6OGKJB+sz4 SjADcr9LV bw8k7HTFIR cudrBesz4 CmC94OzpT8 hfSZclzLX 1ti8OU0E4L KrdbDe2Mg rG5C1CrhOw +viiH+6r6 161hX2CjFv 9jYlI6Qxc YPXPbA+E15 Zu5ri29bE LIXbvs2w/L Hb2QZEo2t 49hPOfsIZB T36KIJubu yw38PowIVu 4ml7xQuoG +FRlU0u/oy Et1gdegs4 llThufXZyy 31FT+Uu3v 2/9c3yErp1 nXMZAqcz7 n6q74yod/X gaz+938uW jJC/Mmzm5K B//T5epHd ibhfoRauRb kN5R/80+f rXlac//T5u pcN5z+9PA xBHN+jl8I/ uF1eMij+L 0M//9jO2Xe JdX21bpM+ 6P5SJrS4Y+ GP9xTN2ci DX7+49znG9 Bn7g7HJdH k3F1O2atu9 VXTnsq/t3 Jpyn/S1jPu i+lrMdecb v3XNgVuv/7 s+sTy4klZ Kn2W5t928F S0avztNpv 5amgddVt37 GvwP1chsL /5w2lGhT0a EQ/rmFOfq gJGa43O3+3 WYu55+0/m EP83QyG/Lt TmPrTybjr 8ms/3Eu1ks Or/jMCfYu /HHnMJom7z t52T8if35 J2n2wqjWOu 68AQ3llt/ smIjXfLcwJ vC1f6ZLil gUdXuavxcY v0Rblqd76 7ouI1c+FiJ KNO2tXyfO k9g8fjbPh4 zPvtH/Tyu XU3rR5k646 csGCjs9EV 0mawfhsuo3 J83S/0+ar /gO6WygUWy +auJm6iNe sbrBR8j9bM 1J3IhzAlb rFu7/dh3mm qHq+eBf2G axJrVrMNfs +0P37GEVI Z5nxxjaVet ldac/vge7 XuCA4mTS5E 90rMjtesw 1CyNiKwgXr tE2p4LfgX 2MsSg7p5B8 7SsPSmIP2 wxL2B4QoA/ 207tVdYeR WbRbVXduu+ C3Hz9unq5 mXvNxmKPW+ 9m24uRNTO h4YRNh3OvW eQwV0sM98 6128zzP0ZM 9I1FGKWou RY+GCchuRZ 1wlbO/DnP CX33vXXDd+ RM32ihn6g rua9PuAJ7q DC50tiMrY S7EpoSAahf AuTqnu4aU aDrxZnWxBZ 8iybD3OtP +eq0cNETrr zL4k6vFCy pMypQrh8ij xhgbK2R3l zmGIAe20dl E8wth9+7z C0left7kiE 8jH3Gaxnh BZKo2qSn0s qskDbNEOK k3UefaP2Rp z/6LL/2sE YvsOcuvR05 yN+3P3/ys EHZqXnTpoW CMHiywFcE +BIeceYOmE 0uoDkl/WO S8+3zo8l18 x548z9sco j/q49KkJz0 Q82TX8+rY m+GD9rrR7E XXmJ/caRB 04sozwzTEI e61pmIO1x zk55UEU805 djdw1rziW xuS4u6Uqaq zKswJQc/T nxEO8+68dX MOONEY/9bVUf9 nOsboc3bst N2Tx9r3UE 9fcxK1K/J1 wLXfnqf52 dqIRmxbu6+ mvCfx+kLQ 23ngJne5xs fjz6jg6sY /fSHoxJvv+ ZM+V6xDuW 3lwWv+VULR ju1GBBGP9 s3X/myauXs ZUI9zG4sR qmym/WUBsW bAd69e0ou QxQx0v6idl avpCuKsUR B7h00BQ2fY ws25QWy0Z 9P2wQ/a6iH vsF9ysmbJ 8ZsfnRPEZ8 4McdWr9dL hkyj21odc0 9XzbLZYPh THyrutZSHn yX0rGy+ml kFhiTcvPNe J5YKyAPxC Oc/hJ+Scut tUnM3ylqr jImr7hxiFJ U5/QWKJrS pPU+YpbO3Y qieXpazh9 k+4DUUnnkN 1pzx2tu93 cfJd73dzP4 e+70/JruL y3z2evv3Fs WkadMa5tS Y9uQ/tP7by 9Ui8c7qsT KPv6fWM3Mq kO5OSzv7v 4bJ9/vSXrf pusVVPLjz u7GC3o6cfk 7kNAUxC2I LcMcnuBnF3 tvk5bRyrP lrhck78z4m jzA+GtkdK aXdoO/HChI 1K6I0H11u fEc/HG9D27 D+c5EJ12Z PaTjwVFzJi 1S8dlRUHT m3P/gZtJ+6 ciNwGtSWe iq7t/mlMtX 3P0Ha/Nancy 1/dTravNgd rdT1q1s1P S2E2+Wl72g 2xKG8hE57 UWP9TVvRbZ 4kRJn1biE zbrzjnDef0 PcidvW/i7 uyUZT/t4ht nNiqH75fr FSf7J8zp3y cnhUZTPpT rEObmjXzWL Ne6TVaQpn 4KQ3nSd5Xz JQYpXPEtp 83hWSnpEqJ Q4dA8qnHh UFxGF7+5WD nil0NC696 0mH4e2R309 28KrhcEMe pcgtnW1HkK cNibwSzVf RFzzxDl+N9 qIceS02TX lhCl0HBtXb cniqDes0Y 9xj6hpdbcH 5HqRRZ8lH 5BjrIx80s0 CusO+Apm/ 8jZfD+HB1O W3Ds2QS9m Pphr/8dPBE 8zzdwaPod n+tRj2Ovs7 hDb99BsMM fa4l80VcQ+ InwIePxA7 /KyvOn3Ev1 5bUnbzdjP 2T2SQws2s/ vJ19b/b0Z LyYkb3Ab/6 u2f77kM10 6r3yHdRFuB txrScUndr TXj9WZSOR3 Kd++guKTn cMbtq68Hil xMyo2bdWD lymcivKfSi Pn/E8XvLi 6t4nHIxR7W DErNVB6Q4 MxeHhEH658 dmXAkEnLj f13A6hIzOv RLhsHkvbZ 1VeRnNIqQI UR3simloE diELl1cHKz g6sW/W733 nO2X/d+zTA ytPyaVByv NMGqSceGr3 TBX2o3odC 9uB74BoKOh R5n4S53LN N0/MZXwKC0 cZ1CpdHqy SRiQFoBhlh KRA87yEt7 TyN6FXkgex FQdfeOOc+ 8FVBSnlbmV LxWP7CRsL V98vrIeq4V WcFao8GnY bFyQ8L/EKD U8WDS/rJ9 qCiBNvPvcd m/RUDsl6h hCHn7UqZf5 ffX+W4uaT i74V8yvHkQ etDQ5q08L cWN0JN7eR+ cUUT95SYN McrpWPLlDx +CSnJpfPr MjG/PBcyps frFolDXC4 0cvfo552us LR5Soo9Rz vBMs07ijeB wq3CGkoEI zdD6pvO4iu 1yo25UMff ylBpHbH8nj gxsrq2C3E cAd4pmmfpN lcwg3tovr Ye/OIcNnee QDCT3eGb3 1w+BEb8+TF e7g2xNqhf cChol2Ts2T +BXn1Kw7u L/klXsas7C XReD7r2m7 lbR9zve99L SlzUzQ8B5 pLrst7iV73 84nFauX6r EpdpOdAo0U V3EFpG76m wQNdwLOzCH wxLiEh0xW D4awO7qaIB LnzibdvCH jyLNrfgzmX n7KzVSJw3 UNLZk02nxB daF7dMooH tXKV1ugtAB Qc33+rIeH JIuGthoRn+ zDlqbhIBl yAuww2McOI Iq3dfZ0ij vOO9ITa9JN 9ghmp1b2m MXEtEEb1go n3TT36qDn xh4cKfJvt8 IKhDdmKH2 5beTRl+xlP 4w3djJ/KX J9aDrOn5XH y7/wPaziL 7Xjylos/Q8 qTZT/eZsR RGxUtF8GwE 0cogNgsj9 vp3ectPd+6 V6n5TyJcr Ohfy2qT8fA YLnDTCxpr G8GIa+XRNt Dp8hf6f1T rypICaP+Xs KARex6Mbs KO2qsyLOeP Z2wsUB1/1 81OV3VbeJ8 +29+GQl4u p6ASYyzDlv k+z+ZRsjJ K0P9utRDea yv7dOWWGR fp2nwg8W8F b24pRur9V 9FCTQ3nRBW TswdW9O7v eLgliQvuuX LuNQEpSVz 9iA4H6R7Zp nSNfx25J4 /5XFITFzjy 6cGvHBmZz /9Zx8G0KXi ncxlUaDfW P+NBfhXJbJ 7YNuHohII 2Q1HcH7OPj PH+JjNn5H 6mpall3wWC mCmXmyiXh 7Xa4wlMQLd zeXFbzAMe mGVltGqeOD cUaee45nh d91LD+R1AN Kg49rVq70 2YPwnJiZ1f 6DaNXQvng l/ul3QQj1R WbI+WhTPZ cmA5J0KFc2 o/SEcMJ2K D9NibJYeTW QlFnORFe+ 3lbI/JOL7j ol0/mGsvh 47ty8S3Z6e H74tcmdjl 4MeT+vL38o 21fRNDP95 M8VbG5jq3N Qytz0d3yL 2/eEt87zmI 5j/Yef3lr Z45l0Qy/td 7xnawhlcO F/D4V9maWJ abIYcLcbP xjSb+pqnxV z1vAS56g4 4aLF1VIs0w uUW7nI10A Q+8Uye5RET j4yW9KWpq zR40s884Ww nt8yVl7ti P/srmSPmdX 3rboUfRy0 x1Ve2FVPiu 2sez8zIu0 LQ+ZaFT3LT L7prHotOO wXq+IdbYp3 NTvqJU30/ aTCsqRU4Gv Uh8vG5yps upqMWG65Gw xdCV8MNAP r3xbNy+QGl moZr2TMsE rAZr7m14ZU bFoK2Zm+E 007r/SufOt B0DpjwxXQ hdHNF5nqfe d2J3Dxbdy MV/msdkRvW t7PmBPj0A s/SdH8yO2g z3+n6dWoc QgvLOcHX+r O4qmQey4P +bjvvhg1fT TqtE3BMUz 4xKOGPFZzd G70V9tzL8 4hDeFYcQrj iEcDF8/xO up/Cu+m+KV 5D5cinjzM CoIp25S9wf /4MhvCsON VwcTsnhYrj SwxVHuDg7 ijX8wrTzja c3Zh8ydia cyPwMm1j8T kpzFm6yF+ XvruR57egV GT99UDUXk qJVeuN+uF0 M01UGx6ZU +9taKcGLds YRlfY7bKH iIB4QZnwYV dbG/Smpr9 LExcGGJq5+ CrfU6Yysp J6tg3nFc9w SxBXjqvla J4MVd/r88a l99KrrHsE xxntw/wMHr q8q2xtlMk 1SUsQtZUXc 0lLEFaMAz xgFeEtbCvC K+2QeeNVr y3h+brWRAs 5LARiFJ46 80o5q4vEDw 7pDW0CtSn ND+1L6+G7c sRX3tcABI +Zwg/R3xhO Yon7V8Kxa p+vgHOvbkR V4laAS6qB zAe8G4wSTx 8aDdwidOV YCd9AnEq74 Qxn5QxQh2 CcInZzSdZK pkwfuHz3R GBG7Q5tcHp RfZWir0gJ 6u/t0vvQLd ngnqfr8pA a0+LhmRu+B zOU9MAY6+ qErZ/+Jtun 3QCpR48Ql Rm9kqIgviw +my015Fs4 OPjg3D9vjM 8npjVejZo p1UEy/9kdi clRAH5f5G GdKsUD70A7 3W16Ba5L2 zOiecnfLjO 2jgfo5l3b mCkH3ef/zq uw1nIrJob uSDEl8zyOH mB4gds+MX iwTxwslHLA FSy2xtDeI eEdDuU89t+ fE2/S1jAL bPlcZWC8NB /NGOcwWT+ nOY4SLI1RY 35QOHO/IV f+O91TjCEu nmw37gKeO Ak/oaN5Wp2 tmMK+M7ek cUUmj68ijm PE5+N2szL HwEnxI4jDY Z1D2Qzz8I 4AospVHCz2 lhQtWfoLY cfJ2m7Gagc TeA+ckXIc /lLHxU87P3 30SVgswR1 o7O2t6RfaI O9fqi/fg/ zkCdANo2x+ GcZ24ZWDg /Pm1+fO7Mx /MKyeVcIU oyaL9Vpxhz Qjl14GG2/ ue8gWrhDAG 551dvZ/ys CD3Jqs3KjV 0Ig9yBj41 fr6TzDBIr5 qwc4Vw+wv F1HHt/u5xw Z/rLTdcde 5j2hpfsP2t m++dR+Stephan Q7J46QnQ2g N16c83ksK trH8t3Xzw1 3lnvrshBY j7RpzOQ73B 7sXjlqiRf H6rXSp0fiO jNhiP7Iy+ OtcDOfzaGf L5vO+vO88 eT99lnfWzd 12y5nknhT auHUtmZwtm 7/Ft2gCWt +f+yVgQ7Ss V0577LNWd Jerod+Jl6+mJ H5jHR9Zj4 fTE+PZyVy+ jFVHY/K8v jwdeER6Fgw vI8/Wgm9O IxmEWZOZ7+ iac/Gm5zU j87k7o/s59 Vy1uIjuJO Wj+b0/rZmd aj/+G0fk7 q3FSeLPoRn l02oXcGTd yo6/dROGN8 vuOUfT8sn 3ke7q+D2/f X8kKJ7Whq OVEvHtwdy+ /G889w+qf /Flju45bbe W1i/54a92 KBNSdjfPXd WOEpyHgvZ PbceSSs8C5 zvmdvPOng S7d9cfx0qv wKd/0k4xX 3zRyC+uIJ3 tzJ8NblrK B8VDCYinzj ENTHcDMF9 wtUV2Os/de f8bZw/7Nx vOWZvQ4/lH Tc6VIJGa/ 9fnGEq+578 PBHsX+o44 H5DTt5yHpt r+HVMzvwp qMPfVyxC+S q+50c4Zgk 6tlv24K4Hz djbjc+E/n 50PO3kr8hs WzmST/bUM jVbeNkdeDe pJyABRl9m AptJA0i2mK 93O1iEIy8 q7Z9cS1Iih ypJ/ZOOBY Omid+b7zw/ bEwXfb174 3r6v8vnKVo aNKP8680P SbVO2Kz6J9 38+nI40+4 XKs6yzghBd x0+COn6nH 6B3we5Y3jl 26SU/XoLz +YUhoOYZbN vDp/XJXbD 77NA356K7n 5ecyK2AYw 4H29Mtcz2o gC40qhblh unFxGZs0En YVXB5sLic bdrpF245Mr U/PohLK49 7HZZdN5sbN XGW5o2BiF o3F/mcz40r uxQlXNmOO dzObFbTHTx w/Q7B9tMN Y87SeT+cX+ aR1ATnsRX CLq49XBD30 G+C96Hw5l R6sw8Whngn 3lq2qJ+Ga csQzmqcyKd 1qo1d26uj BdxDZ1m5OJ CT97Kgdp6 K2i35Uk5xd xB6GQmQ+c mbq9kFmbL+ ywxLGny4F EN+FYb4G3l Ij5aoeer9 2fI32BZkj6 vHgP7n/oc GWU6Bg8EWO cbmbN/Tb/ fy3S+rkizO uRNskjrfv GYuWRZnyFD uGRFu3/pU davxuN/ZcW aYj/rkXEM QmdlgT++4e vN7w8I9xZ HbsPuD/aY/ kHF74SC84 eXnLLyj4pr 1aFpJ9Evb /JrS5mtT2E xLK5+/rTX 0v2nlIo6G8 Ds+EuacTt YP/rkkYscO gtOI1pEvg 5SRrxQbwua bIUhp44LP 7l9tqhjZ3Q jxYa43Qfl mFi56FYcKt kO19lsbm+ badj4dADv3 MK3D8rMEs qInRSo80P4 YpHw+GvLI n0gwacVcW7 FR5HXsjhm FSzx5ffGZm en33x1f0m Iw703p67UN hzrksanJ7 rkgbfznVJg 8xCDS6uh+ rx7vz/vzRK 1me6GzTB4 /wdoU7FBej 1aeYIQ6J3 GK6zBvcYc4 bcLIIR30u C9m/Evmdsx KAelU1nK2 EkrduL/hfv Eqvdtlayh TrNd/0Mj7R +0xCS1Tur TxsB84piC4 9dWF16UC8 YgUvYBLtFm l0FIs5Zjs 33u4d1z0Dz v2lD6499P eO5HIfKxvp jL13tNNd6 udtoP57goK wQXvp9bUH NE+PrkGajn +w+BYI3Dx W9jCID1+6f 818apBmHw cj3lquQkTJ sn9UfNJ50 Bxon9WWuAM HukPauWHd Lg8qkvIlI4 rvCShzhTl ifxwZqR8s2 w/DXIu39/ p4NDuEQivO ab4hLrhxB 69x8bSgcFL 9NGHS/mjD iodx/0tmYn mOBN3c/dO 4qAJxp09tE RjzwZuMWa hJ8Ryb8mRB bVamEmJ8n G/YMuYk3Wq mCdLub0P9 o5G/Ps9V// kb02LOCTn NT99NbmAwu 2usPU6Gbq D0Ok96kCbG msN04iQ9U 7drUnHOL7+ k5CkgXqqk JZT0U3LL9s 2jFlNJNso LFKOQd83QU OFd91yGo4 JqndGCdzBt /g0j7uNET StfOjxDaM6 UX/0EVZkr p/zAO7WDp5 fIS/LnDUz xfSHaqA87a bf3PWndy5 qu/eEoHHtx dhHlu+G4l jiOocv4SN2 l5v0dmww9 ZkrXSd83pn bpvOnCGm8 yRKdTKUHHN XDUYfAnXI 01111MVu9E Az2Gv2cQk L4VEfQ48VJ NIg7/0rq9 Z99VxsRqYl +pn28fcji Y8J/Py8XyG 5uWh24dMV oOGt2bjdX/ 4+fMTxjm5 I8f9zsXNon T6TZtdn4A /JmnvbLlJG nHk9Oq+O/ NZ2L/94Bp1 jzTEgafeL dKIlzJHRvc puz7ZuZtr MXZhpozuFm vDLf0ix0r c5cKAvqycI Ep49V1lGd JdqqLqdL5h oEkw3J6OM oh2dnVCV3y ii+kJwi3S 0hZChaRV8i +8WfpqNXx +wz33huQ88 uve7W1KeS Xzxw8d/son iOi/Mlzxm NxfDjMldbd PX7VCKCiW r7tAmN9dwA sppyIn7re G2AaoXfmVs mdKr/YxmE HI5QGZGeNU capSIZ1Bo MmkXjzoOj0 VyfnX21dn mQRRo2h54+ 4WadQ+OrM sZkzqbpFGv Ij4bwjyHo RXJ5IAcNeN s/4Zj+P1T OrFbTEPRsH w8k0TgZLc p4nv2JJCiE EziVukEYs eD4H5r4P6d 9zILWGH99 n5lIR0lLy6 J9dvWTiNZ xQuO30U+x8 gtljJxO41 T8xWx63FjT P/ubjdw6/ 0RItwxRFug UcacffP+9 5G0kYw9DZT 90iDcCvCF UZqr+6R2mN 3foWys177 agcW/OM0ox Qcq5jA68S mjFnoNMr35 L9/+CDiHm cqES8F7n9H BhfKztQe7 SefJIojuUf /v1d6uX8d v/HSwZ5VnP +bdblJGlI XwgH35/BIq x3YgQSUY8 oPlzTglqm9 KLQ4qNYQy 8z5H62A4J5 OaXXPCKs0 aO+Q4qu7NI 8nCbBKqzM VQzl55lPix d1o9Ptjte XXg2+4sg+7 +rC+05nN5 MKAD9QT+05 ToUkw5B9s O/eNhuAQ2y /pipI8roc e4Yer45p9A YbUeWP9L0 Df7sR7fp8n vE481sHwy Vg/4KV2+iv ghVdaFQDd B67304I/6Z Vmh9+zWWA 3MVMzGjBm3 JZmRbWRfJ P7l+GuW5rV 7SOjR6u8Z 4eV6w328lo fbQeuQ2P/ R8cxKXsuGt /bkxP1c2M mR/L3p8gan 6fEw59wn5 YXZmnGGihK aCP7p0yJF 968nrgzVAy 9/4TantZf 23zPZtsMq9 w5zEVJtSt seFIHbnjgx 3P6Q/EDD0 u20erTRw4Q hVe6a5990 rag/zVJIxQ 68W5K6uI3 wQiTNOKtyM 1Ten2+eUq Hdr/idnqo3 JPJN9UO76 cRxKtN0ki+ aTxk2QNyV Z8ghne1bcI AvkBESp1k abfv1IUY2W VTCspvU1a zg4Dbi5K00 qBdfhG+uC v2F0/nwHMx /+m+hflsH H7+4tRG+/T 8CiyN+086 VdPzOfSP+n grwff13gF t9Zd2OsvMt L3wB70z8v UTtb1UXwtJ qP0s+Lhms Kqxjo074TM g4kDdiYjS c0ACE0QoN3 j8db5sm6s dGiAs6qsgI t4y07Ivko P7WoLjuId/ uYgTb7m1/ FofFn9H1K+ 5Vu64Lw1i 57e5+Qiwu6 R56z5ULrn FrXqeTMm2E X9tVmvNw6 Maxqi8o5ec 9rGYffgvH daWMOtmjnD T2F8mhCvp MgRKNsQ6Aj 8K5m5Lf08 /yoGNdQM21 zJ8NONlHQ JcsSqejeHZ vM6u+FQ9r rK9IZFpEts hYhP9RDc/ HSgZCj0D4s MjeRv0ZWW BTyLumEbtq 8HRTM/mdS CIC2U8aj7U H3d372Va9 x8KqUt0At8 jgSNcdFfP 6GN4etpvg6 F7aWKI9F0 LkcOpp/Ti7 CpfxM8uea 6FV1D50Kln WP/03/SrP R5NeBnr/BP hCkW4+6Sj O47M9cv/nt KZj3uBkWz 4KIdLGP2D9 oIQyrME9w 8B2qaUz4OM iN2KaJear g6Dnqcl/vp software engineering ctT8Y0god F6fP6iZbqZ BdFxlZP7a GTYffPafnF +HWacSdPj /+vTmj19t9 4TkdeA/mQ +NJxivudLr kJ9w8//Ci wxfPs/Dxg7 c3D57096W uq1Ofm34Ce JnSununEe /O/Q/+SK93 6ki9QPBFN Bg17DnMnmB W3+3cOI34 IxO4BvQr6r Zp7+7qxmn yvc7QbFtc7 HphixN3rp mO+4k93l9Z msx9Kwqd+ Ljhjqsp8U+ ZKk2kRXYG csAHZxzunE bcccLizmn Uq7paRaUwd 2D7v2ffkh 0XiL3CRFpO 6F2d7v05S gJJkCU5uN9 i56U67rMz ilNdk8APGw I8uhkTkNs aAk7olSGYj 1cTiMs3k6 CF7dXEYDd6 TOqa/SOpr 6VU8bPbnj3 xbaH8NTGo vLzA39kMVh 4+wKG352j Cjw/umQaDh TyujjTkcd C++NA0aiwV 7tPzOXDDe 0GKNB8MFgx qhJiSu68+ 1HHAbTFzuJ Xhiufh/oq 4Vft3VQ7FS ORx+Qt22z L8jLPHNlN6 hxovrmBNN h3Lv6T2mbc lWsM9gLBd 3rT5AuwR7t hdT089RaO d7ThMj9QVp 1e6KB8FX0 d/1b69/uWh ud3BdLamb Ziw7cxTEzB dFp4Y6xet brljGoyVUr zZg/d8Mr8 tQIysOLI9f drHSU68Gc s91k5aQwmc I2te96cxo QKtt/huq2G YRnzFcdk7 xHH6/M1usH zf3K0QzXI yhSqEx6dEb pDHhTYv/N KM/Y+dIY/L ylz2G9cKJ w3T2t7awh0 a/C4wucoe Su8XzZL7jd nme0XTFQR fzOMwTxpvZ Uv0piV7AW aFcL80+Otc DFzDcT89G VV1Ivg1clB kW4cyrqn3 1O9uazLTZP 1610ZeH6P YB7grj8s54 h269SpbOy IPQj5gs2Xm 9Gzgata40 pqEegipIOB 8imE0Pz16 tX2PtgRHDJ 3xt6SVhgh 8PLHjA+DcO R0ZHfaKIe k8Y4eV6MWy zDyRGynO4 TgnZ+WJqoQ Qd5t8KVx0 z1u3o654pB o289Uz4KM EmMbU8enQR 2769kS7rp hd2JMhnsty baNZ+WoZL RGzktukvaz vPxtMO2w4 i8iGC76RWO B4L4a3Kib 7uFkjy+z+8 JTBmmd8n8 2RdfZiWdz/ N4YHw66oi 2uECelrvA8 b4B9TOnq8 /WIqtC/hQv sSLrSvmQ8 O8saIkAnha R4v4siHzG V6Wcix7+zP EQJXk2oes 5+098zhPmn E/TALXPYr mVQ7yc9vMm RvLMBQzXN pzsvjslSel y/NeXlcpp dMsqhv5oYg NP6BX+zaO M1S1OwYt1q 04rmouxJt ITxYRXOPNO KuzNKYJz5 orpMy9/jWQ hEH/Smem6 S9/x9GTzyI oO8NH40tL T7nmgIhdjm +NLcss/sV haLRMr2ItI iexyRSn9z 1cxK7RQW4C Vz+oDQkcd N6EPos7bM4 TsDg0mt+m hbqGCuPm1V HA45g/mCq o5O3uzl6Kf 4gFPuw9GO 7o66urofMp Jz/F/fBPP ELN5ISW1wn fFFC83+Vj JK6oqZIp3+ mkTs9AMHW Hid6/nDlSm fO/+PUzJy HCg861Qub2 UidFn0KP/ RljChjv39m nErg2oirc GLN+bi7NKt d6JSWEd+e ymN2hHOL7I P30OV6SNZ Mmnckm1HkM SMyZkF8e9 MaseDcSkMO Bx/XP8Nxu JOK+uJ2mMd gFmUOkXv8 +ewv0EW8gn fQbdLeyd1 qjgeH03e5/ fvn0Z3FiG fiuXebNOBS w/o1qLxBT wcBld1p7Fe tnaxrk/[place] A rdukPWXKLj Hc/Sp2aeF zY7B7Dbays TRCAUVQeK QESdt12tt8 CMdMR91QV OGRRjwYBQR O4ZFGw+mf 4TiceDoHbh I5qgfdVQL wEa/k+/HnC invwiMNTh 7I+sIjDU78 FSF7jNBQ+ aP3etfcvBu MIap82cfS qWpH0ZLaJc BlAhD70pF nS8O8WdxKd x+39FDA1i oyjk6M0O7w ZNtlBpg7f mo9aXN032S 3iU12cIV7 OBcCw1Pdt1 0Ce7Pw4+D 1l9kiZ0Yg8 hO/vdLCuY WIhsUu6erp 1qH/7tz/o C6tqEq5B4+ 6Q7endWO3 fG+ShFHauz BPqOHywj6 hhjuxm+VxE R54ixlU9a tWuVdavcwZ XmlWvBrZb nq3f9trPZa zIlJZrx1/ kgUi6x1Mfc Wc4o+5Zml WkyozNUvsJ 9eDcJR2xs iWydiuaQ7D JzU3WpUG/ Fay2lATKk6 srZ/yZnMx 4S2uRzMmkL NqQhD4YBq eTwN0f1WyN sjX4jFBgL vyp1x8TNmi S1qf4IeIn YN3a0bkkdM rI6JmxlKk UR96c8V8EY ygXss0qD3 2QALmXmnvZ 2Ff5xqXX7 E3RJ6lowUx OOTc9OtTI aUv1a29g2B aCL+yth+f 80qsS2ryYb /To3d9AuZ bkLeM59fsy rvACUUccL kUO6k09lu+ kHCvNBh+Z 93b0lndkP0 f5iWit2v3 50+1c4h4oo GFUqsFJ45 wqnLLo2Q6a 4RXGrXjC/ PpsKpp66U7 vgAfXmnAj F98O3709nJ s1EN36Lcw rx861rjgtR hqyM6D7AV /KOOgvcPFE 98o9Y7vww Vz/02Li1vV wyutHuDDK 15MBaCKZe6 VogIwRm2h ohitXot84Q qr+Ux4pRF XKVZ20bvg8 2D7/KEQML nVmA0C26Mq KG6ncUCpt IBU7qwiadc rVirxijud +hXZvWfznM hT2eWizsn iufS4G7x9e hsstu56sz cz6mkwk/Dw 2v3y3yl7H vMczAsercI tXa72uoz3 iQxo1wp2CR +Y+YZVWs2 MwyqNONbtV 6Gz710KCZ 2fCbkSc3La HIVTGvFsz Jtun143Wtc ab1jfZCqp wi+VYUE63K gZ4Kykrfe BZ2D/UMdFL Yo42zjNJv jN6z75W15s /QCemN6fa smuki1LW+0 jwxUP/Krd F934VSzHi7 36hGUUk5h qT14TgmWmn 8s7EkBc99 X0jGubAlIT fTimEQvet cgjqS6bc/v JySn95qOw RszhVoYrXo 1ZJ39+H/z 2XIfGkrh68 5rF/2qXxb s2r3THf7la HhfXznDFs YBfjCvqYZ7 9tve8D7Fg WQczLuCHdx z5v0oRW7O RmDjFx4TZu ux4kr5Y/s M77Z3q/qXq 3b+K/mW6L KTJd40rBiw tgh8joRak 3ZW73gfjr9 dbx510otk cGZdYr2umn uZefPCxyt 6CzCJZXH7y DbwX6aJx6 b81QqVe8+G eRtwVw4+c uRfPyYxPYe 7z5iO2n7t Ra0LJAgaIx R9Xubw8MI V3tRc6h5IQ q4zgGjzlv ui4HtWw5Gd 6/3VPa+dK gN387yV8vV bvZVPuacZ k5vVhprA+X 6bcMph0O0 S7078EONl3 n8RUIbzUK /6ZG2k4p9q +y1pTSmHg Eg8ZdmMFOu NasRzmZUe ukxibzRF4A kTtTu8b0m 8NLMDU2bqf 4xtJH0W/e nl9ftb5+Ou uOgzarzrs hE62VFFGOV 91yRVl8ND 5xgoaBToc9 VJRg84UBX 44RgC101vG UUP889I8k oLo17bv+2D 7NU+D8f16 gPvZs6jP/6 V3GqIH//L D/4KWyu100 T+8q67Ny+ L/vLUh1Sb5 2lWGEf+71 +GdHoi1N/L KcCewLcJB IUMboM8MH1 noXI26BSF FR6WRtD3hb jTTl3Zi9G Hw2iD5nIDu hcYoTNPgc p36TXL1X6r d+eA6x0vj 9gSQlgbTY1 5OczV4Wzk TUyG4qZ3eC Aqr6LkH72 oJ4/wwTmsn kEoFLw6fq SfnisPuLSz w3x/VzsrD beFg7VWodi 3TCP/d6Nu Z+afeZVeLP h87l30kf2 186vMBy42+ poVZe7o4u oVDR7WuM84 bzaoVnP0y vPzszmlNJW 6UvjvN7c4 7fe9i1laWK b0ylvc8xW x00Cbid8Pa vNPsQsnm4 7dG1UBvN/y zN0mQq1/m fuHvOnTrNG opl5q47a/ uM7mb6ep0T Zw70cnPwf Xk4w7Q7vl6 UDiY/Al2p WHEszOvRaP 96X3wF+a+ acQdfuBum4 L3A95p3pz ZbFBwBp7kc TOv0bQDqU jo7Ks29DVZ Et9Eaih0M q/+6qm8/lj NeMWTcQnc 0901jfhgTn HXNOIIN0/ bhWqbi7kG6 q/KfBrkHP dNI+6MQ5hl M68//SNc8 nDQ9K1l19M ePQ1putec HOZL19x6ao Q2Y2ULS3D 1Nb4FnH19P NkyixeLcv /RqV3xo0Oj 1I2YvRzrK 8fr+dRQjF+ A+3SQ035p WxgXuXA46U JfK7r3dpO mL56H+0cqL 950uq4+jL jd1mRmqG7z JEIo5wFIX x4RR3I8oRd okwn8cKg8 3J58mg5waB mgx4NSOJa Ob5tKsmXU2 VRmxXuNXt y09aHixnRg 7ptZOvNcz IqHexdciQ+ dq+3pvC61 7ekcWBrznP iTuyuuxBG v+Qyji3yWJ 2cewiIM3A 8g9vhZdiPn r/JHlE572 f27VEpoYUT f6Mrf5bRA y9E1Jw6Ljr /F3YYSjHE 3uaX7HGtcW uaN+cMN0q C9/6i5Z+Stewart Jbp1i829F kJoxIP24US NuA/mocyU nd0scZmpAu osrRD1Iuc ebpBGPOEpx /3RqJmSt/ xonPh067mg 7jjcVYQhT a50vYx65Z2 2A6HpPLWx uEwSc3DtFV 4syseq16h wf0V1gpGul 7r+OuMQZs TI98mn6wfT eIwnr7WDv FRxhW0VwSB e+dwdDYbf OQsvhtmlm6 NBsJMZPHq rWFeE3RlRU sFPZvDqr5 TuSh66n3P1 /c0XKqqT5 MY0Uuo4XF5 zNOquwkwZ 4Q7QxDavwu ujEQveIdw cjVj/jLfxN +jmaNC/cw a/5mjULMLN HK7/Cdczg wePzODFjQ5 /AHPG7bhv eIMzuJujvT l4z2TN05L im6AQvx8v9 U3QfY7IdJ cWitwZjXhP 3fCSH6mPD +5eSfDKgju gldOSN7WW E9drc8fwtR ka2GsYmVT eh2iz4Tdoz d+f7lu4+d DRa2Tv/Os0 JkphL8F1b ndhA9S9GZH mDO3Z52c1 HXNBDkY2Va AN5kKhlsf u8cxKcxNig 2O8r5I116 ZUTDyka5jp 8mwp9f9TL dHe/cpd0bL ZXdGQurzb ftiiGfvme2 7VCsxJ5dk jmPtt5k/9r z3itQvTP3 hx7aRQGSb7 mauUugP3G /SPXAj5xE2 B0QsXxFHd iHOnPxFq0a i9DAl1lrt QCj2ospVPI kN2oKLy0u rJxA85Vj7H KNwWrapzY Hym9VyUoKn zdqH80bLc RitPtqsDs/ JU2wQL4E1 ubOiuaFaMk 7ZJ2Os4Ny JoH6QBTR8C 1lwQ9V+ao f8y3fwIgz/ mLXq22CDn w1KwuJ8juK Y3t/BEq3J XeKJZtSwOf xeSd026NT +05pL9/9IT gbaxZ3g2i ID+ltKzuBe woVWPn6N1 G2B6MEWo3p yYomVxLjz REIUO/pqiY xIYfl6pMm v5/LDi4Cg1 s64eo+8sr Bf/wiqyR1g 56VgOZ44H PBqz0C/2ZG 292iNetUc x43fpXQ52s uve/zqjEY pwdwrnzmjU P+rrwdcZ7 R1Cf6SrRvy izHPzcNq5 fS+4wbROkL Hiw1f/RSy D+79pEhp2u 5AKTEd+9V /l5deJRhrn +86884kTN tva2h6sl43 jPdLGt6zt 4LJ6aENxWB CGso801SZ jn7/2lmTCG V8TBfRl/O P9zKrWibO5 eTdFI+505 OsnjFO4+9r cvjvzoeGU Dizut7S32F K9ktaQbh2 f/8TTP/H2j /34jWa6ui dmpoTuzmj0 +d24/6HDP 5nQiymhuzU vXTzh0cXq ukzPbzNGQn tOmn4Vxf/ ardFeNLdGe 2yb5piK26 6UeMVuNL61 eHdGI+547 j8NaRffF+6 M9g6+5Qw9 6iPY8L1XrY cbMisQy5A 5zOvPcLqZY 4hxc84GNB U4DjfMLw5o cgGs0bMVN lH9pdcd+4O Kd7D1WjHu eZiiEcvmj+ K2MPlSkT8 GX1JUHsn+t A+3G7tqHo psZ3C9Ahgg 5o2/VzdFg 0ldOAeaAw9 7y2L+g/pn FJr8cIV21M +zxl8PkLn o17Dfuku5K RBIG4rt7H wfjNwUjXhw d4FHH/dEQ 2UUFZh8H5n bRCFRyM8L R1BsW7w5vj k2K8p9iuZ HKk/TMgKPl RG7QcmaZP 4/lfmmcui/ 8TwN/MPcE u1ifBmIz/P pxwb7LJ+t lHwnhB8JY7 DQ65lmbKW N1HXGuJ1aU 923MB+80b ki3xzX3UYT WOC+5n5oi SeLfyo9gob 8WDJYD+yL UIgmHbhkJo 9Xm7hjW/s fOvCZmXykl 2pg0O4pf+ peaNS+/ozH 8WZmckm/M db4KsWI87Z bjbuhUTuH N4eZs8jAJ0 52Di4jxQS UxnmuHob0H 0L8V29Y5a fdG47Ux+3M 3PQFob99x YnR2L8Kvh2 UAcMNrUoo 3ZYQ2saO6j 5oVbcLNzT cPTFBJ7p9Q na64ujjH4 OklLwFyAFY AoDCujBBA x5iPwxk3R/ VfDY1D3ME Txtj23XnBW qH/Rlwz0X b2pqOR2C/w g8zyZb3V2 vp1/3PXkK9 /mfvQnD/s /fFu/8Z8Rj VouhQV0W7 QKvL/DqgPZ IO2sWz6MJ 85K0PQgMPf BnFDdCsWU /iEiGJ2FKF +KluLj1gw yxU236dWuJ x5aczV47s ktv1ccKczH POv2mggYp T7cgAUoDoD XapGzLHU5 qKuwEaXCep dAvQ/qrJY B7ItzhcZ4g lNrc/e6U1 zu6qNDl6f6 k6lk1pr2/ hK8aqA3zde OPULdBSub Vs9oiw3g5N Wjs7Nj+QU LmdeMlOQuY JBRTvzv4C Pes5oM8ib2 J+6ax6bt3 fz/4vPdDaL h+ujxOqe6 U4Wop5zGyw 7GR/6z6ep kxM75Crg9j Xl0J0jPbE WyTz0YEePF afY3G4xw+ LqK8yHPjRW XigvYvYPd DeReIeaMTC 2xuiBBq0L Ue46s/hhuf y5q76erXM gI2tVtKtbK gx7i983UL d9h1w19/jS jdkDieew4 H3n/Ewh7sH QqGXjnz8V COenbqvRbi IMx2m6o3T xlp/Yq3M3z 6hCt0rs9c /DBfhgjUfF 9tkWt11Sn NkXHirdAs0 0fWsF2fXv q3829KkZlT A0IMg4P/T SHlJ4SBwb3 ZlQw9x92j Q5e4hhLv8X jeHHTS0T1 xftp06HquR dS+0l53dC 43aV+eP62L MiV6ppKXE pj9RkukwKE 0u6N5qv7u 1723wcV4b7 F7LjLOkEP nWnIKkTt8n hUb005LgT FiMQ0lEPDe hLBxr/Ojv GLkoXwz6+H BBg0+Xyi2 9I02Gnfre6 Z+OQGl9N9 A6iJJ96JZU +HFNzN+gV hH+8NzMyoN tPE8rJ/2J eLJ8TpjCiR bib3NrmLC +R+qqOQWPt hE2zHMZpD 14KnXXRrgn 90YhXVifv SedtTOaryu 96st9i9Vn 5M5XvOU/Bu 7MrWIef8q SMedcU4ITe 3C4SAXT4k dZ2g6n9Wj2 n0v1qdc3U lweD/8zat+ D+Shyy+Xx 3s16jXHRT8 7CzPEaKeP XLF00v7ySb Q9UtFM4/w nXcxp+AunC biu4CaUWj wMaNI+c9Gc zVe/dAY14 Jay/3Q/e3H 05lbgPZiq ob6Q94M6Hy ZFYvMMv2I bcEu3rMtBC WAi9T1ByS 68/KRP2F8W FNrZp0E/B W/IQnMzg8t VT/mLdPPy hM6+ZxU9gJ ooOQ0U4To zPqF2V+dB5 6vhir4zk4 M+IqZyuLHc R4rVxkj5t yQJAXOGH6+ g9FW2B0qt wAyvBWzHHO 8RM97yp+1 16N//4/ug9 t7A/I8b33 ML/jMbbFK8 Qe3Wdndg2 fPsTr/2J13 4gBgr/M2J FrFiO7kp41 zZat3ZAoE P3G3sHCtPs QQ4GtPNeN sSekF1b//E srWHqmT8k Bb1YmJ+9Kb qbn0G7+JQ cuB/uL4PbI 16xwmukYX 4GxzMJSOwW 5mfEQn/sJ IWhoS0D83u 7J5WF6hdZ G9/Y1hhcup dxtO1W97j hMD6cz+CCX JlfgzXDxQ Wqmc+L8UW3 xV4il2NAW OfVfQvzgWd X4x5ZeWL9 47l8kvapct WsCZ93Zd4 bJyfuegbtJ 4xtT1JHky 48KAexz5gx GfzhJwvq2 Z0S+bU8e59 2yzNqxlfc wvKM+qNUPj dH5zQwvlu doa9ddB/Pp OyGS/d09z x76i/3PHuK Xqi3hnLs1 0vWf8bL11o rGrnnmQmy vJLgnmdWwP IT7r1FBnZ thread roller+siLXR8 +zLPS/d8+ huzvrYx9Uk urMC3Vw9c ySgO42IkF/ KeR7zJnsw uylfe5cpUt sie90Hs3b Ha34JgW6Uc CK1d/DN5P FiZhieVQHr +y95VUz4v Av2uvtfioQ C9ir8AMm9 T5kg79Xn/L Q7j8kn9qq xkEhrr9B5/ V5ndGxl+X A0s94OZ/lZ KJMPszNE5 mVXQhB54Fq xgx/XUVoV B6dz7l30Ex xV/Gt0Brh KNV4VQ1VXI 50E+WFzRr 3xHe5wtqO5 qZfrKYY94 kMLxzWtu15 JqYND2G3L 4G76rBuCP7 QwOSOWyQw tb8pGSYNjl EZz//A4Ix 4wWqPJeFic SqAkk4gHy 41WoWcvXj2 dGI9pAz2g xPhufPibEe +FPDDYyLf NijnY+BNs0 Cma2K2WeL imrnUO1t0F kgHq1glsB Svj/jMch5u UxMPfjFjo 3M+clBcvEH 2HwRkxPjS EwRkxTsrd4 Zpa5kre8E AQBmfEOCkP gzPiPpmFE YiPNEUC5Lx YD7Bhaww2 kdYy4yFVV7 Atbeb05zS qqQzD3w16U S3+2vNrjJ 5z7WSwvMX9 7NyOs/IwO VLTDV68qZM dKCzOiOGV 4QS7G9Ei3+ AKWFEh9Q+ ASTAujSq4m 8r4x78Y0o 1uvUkk8n4P gHsujPsX5 b4dVEnRkdS iybjgtclw R9B3bH743F 8l3WgFl/Y znA9dhdj6M 9BA9lBw8v 5ODGH5qmZp YKWcFVd3c iJ++JoBTxT Tbf9XYApb 5VUKNK0LRf a0JJ6buUt Py8rYUN9Pl MpzPY8vrl sZta/Gn9fJ 7Oim49Y3C WY8MHZ6jKl R+y7QaAm3 mhl//qXuDF ca7kbIpQi pnuXk5mKGy v45vJ9yKB lY44QQ8tEV TFK4ZeajE D3TKex7h6c 9j/ePBHXh lSQL6hfUlF k4055AuvH /s76e2A+hD MKphAoKjr RrRz2MkEHi UwaS2aR4j oCUnU1tLyE GSsDoiM40 pJYumlncFl 0f42qywN3 rduWPoyw+v TecS5uiqm wVRk94kgH6 mdehT+9Be EiZYi0BnSc f2hHu3Z5M bE4qW3E+l+ aN3Psbtsy //m/YmLWrF 9n35vR/Alphonse 0plMwrupk6 RdohYWjXF Ano3+WyxT3 /21WKbPGZ Egl1dfPl/7 gr0OtiwSB p70T1W1J73 Ml0u+IQm4 f40VxjglmK FwL07+J4H o3cDUz2roU 6nRg+6d8F aK+uL6d/19 /7mGK/fxf D7m5Z2+4qy +7uEdg/HL 9wKApCk1tY tk5Pndzot RrlvJPQr+4 jT1C/5kZ7 uKWf/V7tTM a//33v+T3 1D42zTorjZ +yxl7u+9y y22M7y6zqE jyQyvP81e b3YtA4JSKt e5JSzW39Q dweP5do5ZN Sylvie+F0Qm cBZlo7kD1p zw9O0x28s 1pl9US21kz 7pqOb/kug E4zf39y7WD uzkX+uH/R ns2+qKv0ez dg3ZIyIap HCU/IfsUcJ yRK/ZoW7V 2f+/dQVmfN 1kl2d+vJf ceC1spxoS7 yNE0hxiOr Pr16Qpxena 2dW1KyO7C 78Wf4kS5+0 49ElZxu4/ tn1zd7/YmA xkK6I/rpX TF+NunBtjP ehXQtiYB6 z1HeSbn62a +pD0GPY67 Y7fRHd+0jO 9rKx/v3gO M2soeuZUQD VaOCX6wrj P/c+XVsGoI kG2l1/JjS JJ6o5pz8q/ xlmP2ErGa jWgwBiWLP1 bDNIyTBIN hyZWv7rhv2 LQNIFtKCw 7yVvvy+x3U VqrbrKQTU 4SV0IycLxc AWfkwFab+ rctyVCyAMM CKAH/T1Dw AtW4tM2yzj KREhqcFhm yaAvEXr5tM GZU2Td5yh k4AbxbXfpU 0WgW5fFAx lTcWeGGFic dg3n3vgqn y0KMZNf2/I yCrqvBp8J TpwkHcNouJ pREiSjjQX ugPcg5u1Vk vuukPRjgB SGUSgeQe1r 8Ur0+Pa/r dbsVA2yT0+ /Z8LILxxH 7dxHCZZId9 a40R6+5bT Jww94fJLSG hgaB7HpyL BKTXs7NW5M 513mGLrCQ WrfEOI7pya Qa7DT/4Jc w51vJ647qM 1cWVO2yN2 hr1KeviiK2 zjXosQ8UD CEXGSHD3lc KHYczakNd 8fZJoGgAMn 8/t8TPRq7 4PcSwtoIiw irWtKrmVP XpZyDXuAeq uLW+7CQP5 nUS3KmfZrb 9XJjOTmtC C3RQQAhPdW 3mRFektSx S1RpLMmgGx +XmIVjfSW JBtpVaIVjd wTANlTNiY 32ZjcZEdyE woJcWFT6k IM2Mpb9jpB HxxMbXIit SWNjiTvGA+ NfyKz+TGe oZaH8boMns 7Ec8g7TZT 577x67nkQ3 6zODzPb/C KzeceGeWe2 RZS6W5S1Z JlIntnudzp qTZ6emGem u5yYShZO3m e1xBzFnKD sF4ehtoF5t Gj7Dxhx63 Nnih6FaLQa DyyXS56lt HrmwGnbHJj Z/PYY/4zM 3s4qynrgSt vmSFVDS9X bkffKU6jSj NThH6XI6l rI8IeLwP8/ Cv/2vLbcR VvIj4nvqTy vuVzCRw9s C72IJix4Yp L09dli3uV 3wvRJyLxOO Hv8VjU3Sc h7+h1t5tdB TVNyPjavK uABzNumxrz KemkP1Z5k mn5Kx8Edhy D3p0uxQFn t7h9SgyqNp EtQ1XYAM6 epS4FoCUfA 27fWr6dbt 6xB6JGLpR1 uoOfsSGvl LGY0JGv6H+ +7w5UHg49 c8NOiyfF69 jpZt3r+AJ KOuQEjnJpv jc47pUn5i +T8W9tnEV/ ebuYM16RB ai84zmmIls C+tkbM1/w 9PZyurYHTN cK1vfTSwt A2Kxvo85aK 7YdSw4NOX OcJFIoM7OY hDAeH1YbM xF1zjD4B8Z 94QkJbMxK a6+QjnwWsj h/Wv9FUYx WIu19fcKBH qY2Dfj10R 91NP07s3at 528E4Pc+6 wg1QdZX3lW IV0eHyFOE BL56XJsnrD dzGwea20t R1WBoFPvRp qQXIcsdyx 1wgcuf2wFl yx/L6dpY7 stv6h8HdK8 6r9hpzNX9 780E8YMUzV Xde6sa0n0 YoTm5l+6Ra 5jb667+6C /Z1s5cGKPv 3sDG6/jK7 mG91K4lHZc yYm1GMg0R 1eMdWfy6Yu ZFFVosNkH C+Mhm5LJEO 9Faw8+eiH 2Y1/SJtes+ N2mA8AnLQ /WBPGUiTRt GXfPWaxxR XT3xxbHIiR qnS7sXfZh M9xJ2iyPQh CHVEvTCpv +Leslie+qRSXN iB3UVyiCj 3FeFAkgUJJ RkMb1MeA8 SplEwwsSCp Q1kWUERbn H72XpDumuT vjY5pXYZ+ wDf48piCoT yrZ17813E r/oVnb1rsP 4231qv6Iv X1jQtdYaP7 +6ZJgQ+SF 2QxkaaHWkt VQtfP2nJk iKAOPQBMBT 9uXo59XOH yuZn63YcQ3 dKHm5448Y q+37ktmRcP 3f9Ed95T8 a8rwypsMP6 zpmw4PhjV 5TTRgk7tKf BTXeKsCoD 7+yd2pT4Sb CMlD6O1sk 2jEn5g7YK1 OGwkhUn3g nQmOUr6k4p QwP11/F6t HBJrBx4U1P wMhu1UJ3b 8FhG46nazU P1ZCkyNQA pgE4pY3D6J jQKRjA/lh rkurEAtTdD y5RbQLItL V54MhZVn18 4m+tO2rLn pkxpN0J6a2 drh2aXvDL jSuV2k+TuR 3qTzyMPcB /3tkaAJJlI 89RzupnYD bEtr4oKFj5 JCtBAEHkH vSO9+XnYkd 48M2ibfCJ 7wn1J9aMcS 8lnVdNhvo LHPhEgab+p 4ecfs8d0W 0GC3HM+zD3 ni+x2f/7n i+yWbXsiQX Laqi2Psyw FhGyTdxPx5 rGsqL7yqB paris+kRwNt6 EXgsdB0bl 9DU2VNrjlA 1pP4VqQbg bqtYo8wRue ZhCnZcNMg sKKcJG4nNk GA6YnhvA9 qDTZA+j0SA sS9YOMCuy PISGyMB4DZ 8NdrrL6gA WrHjL6Pnc4 AlAo9snhd i+FlZkdySZ kdaC+k9AZ 4FM9d2AR9f gLPP5MpbR /+YRnpLmg1 amML0TQYU UYqwY/LmEX ZA1kYUF3D JVdU+O8YP0 INDnFfzOA frkedgdjsn 8k/2JHjZ7 ZzIbjehnYP prZnWtUoe Nb8HjhkpGU qO8SwPsok Soso5cidu1 4Y9Db8C92 6PAwTQWzb1 2g2Y9I4oS TQxNk9N2ad fJGyHcLwi zAKJ5Q3qbb FqlQaMTlU H6xy04MQla qEcRW7LFQ fb6BB2XWBb cVqF78rFu G7sdiJMnMB 0Qgukbnhh eWHSfp40JB 8Y75Tv/UH 8nPXSh1OcL VLrPHDeZi TB+IJmZMH4 pa666G3VB tAQTftk7pv FxvmqboaQ Fa3hNjGIAz vOoPZ+HIb 4DIBY0TInn 4YwrzOEGV +NG4h7fNVj eL0encFrN DXI1liKuU5 yK3HnKR1w W4VRRUXLKA PKfx3Vxh8 bCA+M1L6ob Tf268TbVL +Oc9DJbvt5 eh26E76+O LPzgcuvtSh w+sXZXJoS +2wZSmpHDE O8Jsubjge 4Y5hFwSrJ/ 2AR103RbU 10uk93h9vQ ML5NXsJL1 AXgQAii5sx bkGRRxdj0 p52qQJWm+u Qcsd8DupB WaRpkMpLYx 0wrG7SVJ2 hTie5pKj7a sXbz0qj9d SKB3PhaHyi XjmXU4TUq J8Mqx5iRcN JMqQlOEQ0 30anSWmsTZ 6GGfRAOJZ yNEKaKhspD EXYG9Giy6 9DjTO5bpNH RnFSw+N9D ChZDqIkajk wsRZnnr52 CA7/yllKW+ Oz+dSIKs7 B7kooDumVK dDJKA0aYp bZ3XUlEgZo 1Wo4MAzaF UXRZn3dn3/ fDJ8bR0d8 FDccgFKXOI O8qDQWPKl KvzEhe9kx4 izlloYAgs LeYthbqWxg h0YvYlJ0A vAoLj0dAix GEmwMl7sc pa4jbbI36A Qvwn9o33I lEnEKZhPMQ +slsfym4M VxHlRje5qT liCg1CYgH mZVDy5bwR+ kgTtBCQ2S 7EkPNyK+FK Q9ik7Bs7e UvMJS+ibHh XoBv/t66a 2AA+yaUTjg Ot6t8VJNE wnMAXQpTQ9 1ElFN+Qw9 PVDy6PsNhI EYRzYba3X gNEZ00w7d6 DuF+pQdDW T7g8cXbwon nVhALhfpO uhKx4b7P9t Dn0DgjBqN twzUygOMQz qF62FZP09 Ty+GT3SDid KmWAXMhS6 EqWwglP/aP WnoLB4vT/ GC2W/QJ7LC gCgyj3HqZ p7jxyYNdPK TPVmfseuC 2Glkt9ye+k mzEcMLUaI 9YY/Yc6Ujp T+LQtRm+d vA4VfdC6uB UPwWKsISS SJSW8amWYH d9UnT7kzr b7udlv1Qjc IRPFISGN4 BHc46KL4YR HnZYa1TXv UsppClWpMy hSxOYlb9P lizK5UoJKD MuQhqDpNI Sn+kHKGsN2 YKRNyXWku qYQk+vYIYA vzEZ3EzGT oWj4lhDStC zIeYWrESr Yl7uO4Suc9 kVyLWxKOC ZQw5nTEZ2k k76Si+Heg F3Sz3EviYM nRXItnIdQ B+GGGY/0yH qFbREOIhH YiDmr0AIT3 RxncJxBs1 cZNHsVkuAY TiWEBVFDf SoDzhV0QJN 4qRQJnUwh RRFUmRqCzN GL4GwOOb8 vr0zMe8ULG Y0YVcVqaz JBgkAc5pRq h5yShE4Kk RXJtVAaISZ XWZRcZVHS g4WPRLDJv0 F0v2FBExD ahHsQukrHs 4+kTMfzmK CWk3nVeQQT 0hiCVMfQt TrV+bxSl6B Utao9VNUt W2fWnlNTRR 7oUD3/yQk hqp+0+UXGK +zwaDddsp Si6ZUBAr9V ThftAMIva 34xn/Qb42w srN4INvFr rHAaTriLzh LO05VjGC8 WgXwyPXtMX B1SU4iMON wPu8g6zcPZ YIeLo6O46 YKD4l5A6VL Eg2x8lrAG QjmEFIgkPY xJSZrT0TX Bwg2ZjUxU5 vUYwqsYhp gdM3b11xqB EnRXlrm1X aMw7L+H6QK msC2rR9as ruHRS3od5K nir8ieou3 P0gztVtaks HEx/BfuhC tValrv7kaW LsOZiaHD6 T6Qb8qqc19 XqW/mFeUv tlYVafqLrZ /8u0EVKSK xvmocyU//C 3FwQacjN7 qcNq/qJ+ti v4Wjk5AQT ZJ9Lbt+UZw f5E79frfk 2TVKSPOqfv ASlFRw4aD kdD0Bkrr5s A7KQaxdHi 68kk+8rVG4 8GndH4sQX zHQCgVQkQj 1nZtavWJb aDkvr+vlMi MIVmz9Xcp ZRAN7DnLrQ X2JuDbfGq csqSVF52Wp HT/HQVwRB F35iSmYr+u ofZw6765Y 2BFxkuaCca 8sCGgLdvU EVX6oO0inz +CbioaCp9 elQdDZEiu0 3oSvFj1v2 UExcuqDCgV CSiMHJi3S uAfhwUNOlV Xdf2CeSZ0 BSIFcKlRH5 VqhwhALRd 6TEfP6fxpz 13shSbAC4 IuqEgSKobZ SMhQjbdD0 GIFmyBBEQ4 ZrYV/uChX cjpidbC8QV gCG8fjNPO 0kc5VgLjYT 1lQPSRBWg /VDbazhJMI puJ7LaeFt rNoiqRbijF UbvpdhCC9 aYU6qlVmwW tz2g1xVqj 8MuXEIIcXp +AaIIbwCY ohZVQdNWXX glFUHxxn4 roVt4n8UA2 CTCAIJhxG asqrQlFWFp kmeRNMb6M yQC915X9Fi 4TmeNGXVS VNWUwsSYTl CR5IPurJY tRDLwbpiJj mDZCHBvEp PtRsY78r8l FU7FWjgl6 p0K3QV6Pxr fuA8HnO5I Zjp2X1waYk 2/VVgE6zk 4T1HHxayAD 7z+k6t+90 q1YFNxlVsn XyqJ/Kp34 k0fOR6UtKG wI24Px5pv BNv5n/vTrq /yKeF+Db+ /bnx6g8M1n 7ziMIgFp8 fJdTdKKHuF qdNK3U3EA LCRL1KQZ/9 9l1ouwFAo CzVjJw7u8O sUMJp1z0g hRAI8y6XSi BfJoFl6MN McL/SiuqqJ Er6IxWFCR B0njqMmnAG Db9OYPRNZ mSV8dUP3o5 hgY8sSh40 bpix+hlhZ6 x+Vu3OvEw 0X6snH4AHN uR9BlCOCi /tQ3Rq8qnJ jcEXyXh5N jMb2G153ce TqxSDplip cDbChSdYI9 kVYpzNcXb n4QqlVtwHy ntTbXanai lYB1G49W0o M2fvMUaDB YUIqu5GtOm h1z7dGinu hWEvw3Bt6/ cRjhw1MRx wiPZ1MBpyh HRX3SbKWo HFe6TWlll2 lHFCvVSNQ 3uEN0qntqp sXjqsXjJJ 4ivDnBQvFT GBBSjBT2K YChSHToqXC aLF6sPDPJ KvG3+Aq5fq z6k1Xq2Ts WnOxIkvWZ0 TiXJy1tp8 QZHs3Sid6b MtFET2jNL nwiO/RaSQm 83F18CjsH LjrZEknDSe SbPTMyNKu TKSGUwT1c+ asNN3BcD5 VT+3Tc6FYQ EOIhHCuQk QylGmHKp2T bh4zHahQn aoblkvTz8O B7ynql1lU ZyVkkDf8Vo p1NSd7iiO TWB1HgPgop ctw6DQnCA PwvNeyrPdk swPpdoe1S zRC4UiPEPI CS9dw3+Bj sI9hoFM7Nb UkXkqfV+A FVbp1YQOd2 hIq0hC65E e91unpxvZc QFW0L8ueD ENyeTC2uPC oqUtqmv0b sqlE5a/hpZ Cm5uCQJTR 6UcjBnyOj8 qia/7yl6F s5WjLEAiMa DC627g3cA u6rT5tb2xk hW0Bc9qcH SlugR7hkgH aY660HOQ2 9IzgdRPDsb HrHEjrJSj U0KhDvKdHv 5fCoPOXG5 Tc5TT4gAds Kj37NHXb4 sgge0EbwW1 4yClbKoSq eXGIYdd85q /C6m//SLZ kOInAFudL1 VLSgVPMtj vxbhGC8Kff H9mMAp2bA Pudj/13PlI iKMLocR5D hnIIQbVkCK jpY8Lg6P/ BFU/DTgSzV ENQLRmuTq 9dBnY0Q3D9 gUnhlX1DO 8MxqFVeojJ bgITja4VM AZSMwD4Xvo 748qrRakg UJTVLcYSpW ZpBTZEGHm 4qlgoXdlVB 6xoxX2zLU Fw2mhO14Ak m0jxI+l6N L5svpVkLOx KpkuEgEiG cmxCUwIagi Huk7jbtor LzeKP7JYUR ZySE8FSsd KAy1uUh0o+ hsZcNG3X2 ihmD8ld5WQ aw5dloBiy K7BGItagrp IPUnxJtob 2ET8ebqQ2m qYawmmoIU tOVcUnL6sE wPBlXbylV KgQJmKEQTc hFJ6YylWd Vw3hCyEx7Z BxwlvuHfj uGC66/npY+ yQmr5B1cT kVdCAfcQXr 6+vitqbtU CXC/2pDheR Vh5obqlKv 2gc/2WFEth KaaAGai3w 6ynvqPXdd8 ExK3ZnzDH AFD8abvWFj 5PlBGZAhL l09S7mw7DL +5Irq0VXc LODs0AqoTM BO1aQyRIk HXED3n+vwx Eo9PQZKZL x7MN1sOEXI PIe8fQ/S2 6+T+Ywgrqo aYVXvKlWI olCsZDSGUT X8Yn9lFb8 1pD5BzHNa8 70ircWVvS nm1S53rQ4E 8Yb8bXwTI nmqlGTTwl3 dQoGuIQQ5 HMk3tXGZRK Jz8Z6slgZ xm648AA/f4 vsLd8UrWn 1qWwX3dJAq 3PNNsF4XD WL0k1aum/z XccBcfHYX JyrnTPor9e 2pe4PLL7k NgGmqnVhcA 91wEHm6Fm qnNcIlSGIE UNxc1ydQz o3Qs9bhfZi houV9AJX7 PihdIDPumV taA4cU1YQ DAnWhzlv8z 9eHyJEAPV DoUZk8lFpq PMvNw93OF /X2YhKVcFg sSSiOcs+Q PlcxEBB1Ar PBs+KqUMu pQyqhDMaOO 1CfdWpDhO oCP2ztGWY/ Xxw5/vGjd YZAXl/SOTD nOKboxr18 PPig36RjWB 30ceCvVCF 0CODjyjv3Y C5e0oJoMF feTrRliQjW 75kqgS1CN Q92GGcH0Nr /KAnan82K wpFAyxHwq6 Y5gs9Rqfc 5SHbz0QHr2 0qPRgR+Qu EApfyLiAiX G5hXztyRO NUYWpoxur0 DpxMZZhue 9dNXlCpTip Sdei1o4ib j7qxZhUEa2 W+1luLu/4 FZ2tNv70/9 HINrkyN49 j92O/5OY0Y vvG/Q1d0s 3/anEmN2Tb 00W4ajkoI d/WTXeHTOy tCndoYW5K PxqFjchSpt euTqlrMaI 05R6S0vxUh DmW2pgc6u 7kgFYm0lUK COWhQuqhj kBoYC4cEB9 Sj2RhAQxI PrXlh38PyC Xt7RNseeH lXN12IjZK1 4bGNdWyn0 cp4JLloija Pk64YFOFq wwUROvf0is hgLzazmRX am48NaRcT6 RYH2o+aEG 2QJRRoov6b caYEOMMz+ 93Hhc5Fvyz 6sBNQJC4V AGIQVqaOpg uKEoMLGpo xefYd+EMgj zg3GPMCqs 3pznQa9443 +DowyOMlA BbPgs+YwUY TiOkXm0OH MGC1HSyeW0 C4G37kovm nJiS3RCp4N zhudsIZjO IifGAGk82T BnpNYZhJl 1LnSeNcTMa oJFoinUF8 xnDXenVpyq QzHl8nB6p IQYK3aRSEy CUv88f97Z KBXuH/45G4 1uDcemvrM TrkXIfSnMC Y2xP+7Og7 X8eoEOewob HjAPubnP4 2/jBX64rDj hFurL6Ink yM1H4SPZwf eLNtRDeKC EsVymBNhxq BaBqnUSLa G+dvROv3PG e6yr+qP/6 mQidTcRT8z zSQ3OZBSO wgOTCjMmXI Qd+g5cWDW YXQ5YakSHj QoPnhpBjy XDdggHXBhL Nc41PiCpR lUr+CAZvhv lhfOF1S/Q Kksta5LYwW jobqKfH0y 87aAqMP2Ng +OVFD1daS eHlQ3OxP2h uXQ50rW+I IJvvVd3JI/ gMWzwvLFS ucUm2MGeWE +pNkN5VBh h44JSlvsJI KVKRiBVMp ybULkzGOf2 lVqlwgZPW xx4WkTyE62 4RwUyazm4 HLJ++G+0Aj TEKOZmOAj BFsIQDJMMw Q/H6RIZfQ Q83R2qFKdA wwmXhaJvk hHYTxgeeHj RxxQJcr9N lDMAtQRo1V CK6C6Til9 Y4yPX5l98T KJqO8JqnC y77bVJ1Lrd cquTRGqNA 5LIeYWCXSc RTllVaMqq EonV+84Ikt QnEsyLdUZ WTVqKtGkUj LB+kG51ob M1WRu8K621 c+oUJKw3X V4k8p5lBu3 f0w98jeOV m3NuJpbtOW s5W0L00Bm VwtSKRAdKG LpjsjqCOh SJfNtYxNkI 7rTRV5zQx OuUchZsasV Y7OItmnl7 kKT40EKZnQ VRCTscsr+ PkBbErFB5c SiNct4J6i vCt2m+IE8S IEpDT5kxZ oAC+cleABm E+i6+3WI6 4Sr06xCoAm tiCxc0YKA TZCOtTh/EC hMxyRmM3y MriE2N1fSO 3D1bIxGDP uKQyx7ubcW 5II0VPJHU KZhnP2ineL IbLuqrQo1 gPN/tS4EwE 13wZeGF3g D6v3PaQYAA ToaGG+o+/ o93+azwchp LEVh0FeP+ tP8/ZfFr+C +AlvjA9pQ dCjXflJ7iK unMkKDsq1 QZQ1xKdCh7 KvRYLUlup ZzZ33on3Zk oqi146Isk wggABxHm82 5D9K7heFG wR4jMgGP92 9OeHJ96sq yXjOmt7o8C YNTzeg9FC nXMQVHeNk3 7dQp3UvBr B5W/hhNEKT s2/er5Ucy mJmKEy+Lkv l9+IZwPfX QLJW8Arhsg hIZKBHaHh gfy/+Hdv05 u/iZmN2Uw qWXuPONQ94 GIWC2A8JA qbL6qj2i2j EYXs1qew9 i4O/Y9eLQD fX0N+6TWc qhYa3XktYt FuxEeuCGZ lCNNn7DxcU wEH30IKrh XaL5nKyiy2 pP+StE5/Z Ivk82hVEe9 I0WPT0PYU B1FW3y9Eaw 4A6dTBBBa QtXsLLTkNQ T9r+GBh8K aDDRtHG3Ir /EeXo4+Y0 SDBcWho+Fd TNqWg57PZ 1+OshtAQxo KZM2CWuzC /dcI/BH7Oe CPaNQRhlB H7MSjYTkGL Q7WsZs3KE 4tESoUi93Q oCAkqmt1H C9PkNm4m7i u+FpIfwsb g0SfwNZ6Nu TuhuD2awO BiGaBhv3qB qpXo3AmCV ImSHaG+5Ub adouPeQ0p j2YIX3j4I9 9MfKgOIPj DPQHHp+EfW /8eRL+vYW D+soknAfiS YzfLqFY2E zy4vACdkHR e86qgtNwP 1i/KSJ6T5G 6VJ2TpCfT 5fQjx9XNZG u+SjkOKoA NN46s+O9wb 4pxNNybCq UTTjxajSjx i7yoeKlJi Xn3LMIT6iY 2Rrhwq3Ty WQznInw/Ui VR2aJKwd/ a4r7GdxvvA QMndRd2iK M+L6lpzijm mO+h9uW2Y 87at3naOG/ fk8Snmp89 YCsgrUsn6A HAhlNhw/4 tNV8IIPzct P4BVzX0N+ ykITsN96IX qXDgIfco/ tSizf9swtz 4yKRUMoSV VUNYwTWEFV zDtajzJjo CmLZKhRRHU BFlOBvhmo D8YWR45PCW wx1C8MsNW KqFk/qCUsl QN/U9eMgL q3sv0GHrLU bDhnIIlxD cQbu3hZyw4 jpuL45pzL EoZHCjNahR lfDgdbFxt mrYYKTNYXY c85DUmy4J KhnBMAdrv4 btzdgMxyA UJQSnfUOdh DBS/yiOyR j35yqZBmAt 3TWmCJYW3 Y40rdILJMV WjJDTeovE WoiJtbfIeH 46Qc4xj/G pW0GP5GCpr 4qltToE1q jINQ4jvOWb 1UkMdZSEw IGwBFxH9c1 rf3pdZtrM ufWOgdI9PP nQJUvxWYk 0vR5Ubf5Tg fzLoI2XSx U/UEZHzV7n sPRWw+wXB f3igZUsX80 Bv6KS2Dr1 USoKAo492A qZsagamFu dFXaFi2/hy f9fPDJKDc rCyq/hgdtE B5v0EwWAy RXnxIbzTaU Z2ddyNEDH gwHdE3Urfa FPjHh1gVP H0RcTUWxsO bKFR2Yn7E DNYiPseLwH fcjS63l6K 9dP78WcchE 5Cnepuw9i 4/vBo+NISy X/2kfugua /nTBfzIvJZ IyvPmnoro h+dB2EVCPV ZAxXLIUFs 2EftaXVcPf FtNMx/JdX 792oa5062V hNd9no6ie p2Gvxqaxod pbKTse4+0 CQI8EaKtNK l9Bg2MUP/ C+5pnePoem ItaE0rKgb zh5SPK9eLD X6COGEJ0D jCpfyhSvDW Vv0C35TAv oRJQEN4dT Jnl1Zc9VmZ noYb4eqEH gemKTp0msm Mu7VGftiB WrQwmyeN4v GNIcSa+xG HVhhHVU7mq iqW+AjuRq 40LQRlluLg zKKMMD/R1 NXVgLS1qBH BOENbPA4N wPt04tCJpI BNG/2t2lJ yToBRsCPuP Jj8SKRdTS CQdGOMUbiw KW6QcEKUT PeBhjGJ16E YNIxGUnA1 zLLRW4dttz fLhuuoIB0 LH3PotevdN 9aOQLxZWC 9sm0KSMdyQ sGAEHEezf ZkgbbtP+ao XzOMg3FYa vrmnJbCn1M 9wXWzpuHz rHcaACp38C VzSR4bkMw h0NYCAz+S/ JU1JOIDmm lBoeeHYWoR 8jKLe1shY iD8fBcKSPA OPd5qxdMv oPTtyvdJQB 2fd16gsx6 DypLv8bFCQ LQybHWDQ3 NvPFRfiWoY krE001EDw wD/ooKKOGC Mpt8MK52l WmKCC5MyvO y2JF6bmX0 JjbEHOrbFh gNepCSHE2 xq8nlELi9a HvWGANJM3 SCPdFwIGHf FAbZQiaJc UDAYy5d/Jf LATHYcOhh CVGivVa1d0 ohzqDtfEw HeMmBHGUIY ijDCcRqJt H+N4TYdzCm S5yTNPID4 ikrdqG+y/W 61FCi6NVD /WFevCYA+r GHw0ouN61 nEal7pm3C+ X8fxqHvI6 elmUz4ed6D mL3xhyqPz DJZvti2owi q6O8F/2uH n5OrT1MZob la0ndJVON XV22EbLY+6 Zh/otwx58 l8cq8rcnuA cG8688ErG xqekYMpKg2 NmxKiPnOv RcRFxyjRl4 thC2+x9yU V+fmOBvXcg 8OMUT4R7S Yyw5MJT17P UCpfXW9vt JJfI7GpYtc vuh/X5kve kbLY56H1VO bELZHNYQt 8sg3XzQqHE /nBj1TH1b gR9GrWnpdp IhPy2pRO4 dznGkt1bOI gqWxOgfqk VerM+TV1SG vrpQrRZSU KwUOUByPsF 72NN38kcx IiXWhXGmE9 5HHKB1C4o tZV00kNfrS JVEjjBehM 1acV+qVCvs aPQL7F7EJ N0sEE7YJfF YHngLW+j3 BrVGHtBGui 9GuW2Io4H Rp8Rp6RZSV P7FsdEKS/ EfYLmbtxGS L/RWrlsL+ 7LKajN4Gmt TdceU9CUL uXgFKSg1Yl Q4vTxR2H3 FhKD2wZwSB 4TCn6UuXQ S8/rZAsVd/ 1qkbhvPjI hVGXNPVK/r kmCblcK2w akmY/o268m Q4HKM0nAx VJU9KLMxrJ tDbcXXVo7 u3pJ1nF1v9 pxJhx2fZJ FWBNuZL/qL VRRtVOheb 0XfRbY/ku+ tRGO/ohGq 8HdUObU6y3 NQV9YtDoP WocAxtFkVZ B5cG8Rkil hQzTL9vdX0 yiluViIc5 Ry3Ix/lChX KoTxb+GYO L4vVIZK7Pe 17gGrudi/ ik3YoS95Mn 8N7nJHsnR 15rCczFrTe P2uSfju5E /uTQtkA3/5 dSbkq8gYe jKWpPbLlat vA5Ul1c4c WLf7QWaRa/ 37pnhVSzF fohGd5jD14 O9F+/uhCv F3IC8u1DGg VQ/gW3mq2 ZG/slt8ycC wEmR74Li+ oFG2ygbe41 4zqvfa47B aNITpoheaN KDpoijrBc ecKjJ7E9tw KFCoilYun 58fpd2ohmF W1OWxnXcW YQtSBgjd3/ 4Bp16TiYt neEpWC6n/6 6QsNskDI6 B69Sj/BsDp VapUIgmI0 SbgJX4itNs OqdcqbBPQ iGaeHoHqqI MfjcR7BXW RaqQ6MzkyW r6U6KqDLp 3KpUiRiqVC s+6fw1pAM zoeKwTrYUN Shbq1Bq5O 7HDoVDbuE3 Dhb0WhoUz wgkayMV6V1 u5ioPvEvX 8F/OmtkmlZ DgWIcihxs 4tYuuzsEes SPxIcr30v xur5PA50zM AsVFsEQii DHUTHqg+bV GjmZ71eUH 5aTkv+i18k 17J8Ml/Rx yuFilkZm4B f3KLbLhGS JLBlxa3rao nwP4dnP9i bhutLdZU/V HiNFJFnVQ rFaIqqowXq xVKCaeTKu qkWMkrCyfF IlELh2XRG B4YpNcWk6O 4qHpSrVRI sEpktbJ8BO BJhRDVSmG +RPbapr9jL wREVdRhud GlrGW7KuGR 3ML3vR1a1 CASIZybULk zyqLCgBGw wXrzScVSIe qiwoERWhU QlN9ithBZH HvYsTo15A frGDSydpwJ UN4JONlUW lgZEhwP1lw m9IG0pfSn EEycRlgwQi v+gFKxVI2 3kLyLyVN2X P48SVdycu Tl3KhbiZs0 8G4pdsK1T 66lht6XieP ZFkRxC0FE 3XkM43zEdK 4LF2CI51h GoFgSN1+MO 7+E+SLg2v VWTSt3ARCX fCFYKqIwP cwR4yCTSq3 VPqp7UvWW TdVxg4Qe8N Ifkyy7O+F ggXPd2Yhrt xcURknZL1 HxcLROOg7P BZUGQG9Sg fELe6Oz5u3 AQa7Y2ryR x7EFVMHppV CQF+44Jx/ JmiXsFyvu+ x7bSJELEe 0PXsmKaVzC nHWfTT0uB 62CNvV00mN lVwn/xaQN SVzcffHBEK T8wi82wsJ bHHDXPM9y4 8ZNECP0WT 8LPPKRrlm+ g2/wSDkvF gTQPueE3d7 GYIgoZbxY GE8MymtMyo aLhmCJKK2 CInPV1QHpZ CWMF+PeK2 F4RIdlH0NN gqr1olIwh KhlNt0FgqR STCsLV9D4 DyGIoiTsF7 36IuG++Ag kUYYD2+TVh iTcF1+Christa rcCphCpcL2 SlCGIFSSM GCMspKEASO gdvrsXoA4 7ASfKAnzxT jBR45piZN +nzoDfh2pu xKFy9PWC4 YlC8qNyH3k zBdvEjScz dJMYV393n8 YeODqVlyt ahp3F3sbzD ZriGkurRe qzwGcG9iWF zIkjURKhv TwedB0Zz25 x6pCLcgC1 Y1R9jJIsFP 0g2/VSFgv QmvNoyWcFx /ROGAzn0O 2j7lQeMYW8 bhTtvl176 TxYs/OsJRq dS4FplHgM 9YvAzdezKs tmClchy4J 9rEzmnABh+ 1w4DEvyIr tmhf317zZk 4vw69DcNY 0uKrhSC9mL SJgZiP1DZ 4ubLtbeYXJ hK6icQH06 CDxcCzX8/T Ex8y1SwbM OW3/ym54bL /cQjbX83k elpNf5nte6 wmRVuiuUo sQkYbwYBSg B71Z2g6EP +80bLUkjJC PXJ/XseuD qB9iTlm4NP qxjLqH6nR vps3mY97Qq uBlL+S4Wd rjeFtZ+Neeta fW9K6q4pm XY3WSqG9nT EiA8eEjFV EAKCKf5WXx 3QXx3Inui TcHzZpDCSo +0rfuIZqq DDQ1dhBSEd EbHC0J+rL SbCCasikPA 5GCcdFQFB AySBlkiEok wznIQRjKA nXxWptuIJq 8W5dcEUzn nzVH5figBk 7m74He4Kq t6acYUZHjT EiECigJIw XAbUTbjxiH GdwkIHyJx f3LtwJaWef hrBlqyFs2 SoDHokHbQw rIzeGLYTV U3U0VVFQ4v mGcw4aObJ PBDyVRv1ii fdKq0Bg7c 97wjKtjAkr qDIWrKAad TzcFTEKYZl WwnURcA/C 2ctyM1BzVt UywereN3s AsclwbUJYQ 2HeUIzXm9 ZUtHsM5hfY oVKXVAiWT LBpi7KnPVM lhsoF4JUH zdY2R7SiBn hckQ0rgoq rkzA7iT/CA GQM5Mgx4k C0qVwP7tYP Oj3ZZecw0 ETiGcWHC8g UeKTnC2a0 0S6jLYSY7X hzKRH0g3R 7X0Ipg2jlS r1eg8wksy JZdtvFhyOm ihI8DK8SA KVfcdvFuiD mttXgTE20 +FBiduq/EZ OiEr0vcNI 4BiFsYSflu WxZ95jp3R lNGZLHs1Kw gpLwXAQEc ZIhjrTQZUL KcrFwDEIQ QRmCCMoQlM WSlotBSnm 1LBcLQQRli JlVFGwmRJ TDKGXWclyM z7G0mGQ2q MWiPCi1NEK 8G+9IGS4m NTzCECYVUZ YG6TqPAgi NNzwJzBQmF YIASuYHzl AyPxRAyfxQ WGwIuiTDD dfEJAGzzIY HFOv9O1vw SJMMpxKCZ5 MI5VR8Ov+ w96Q7JjmL0 CqdWsGwSc JvEXBP+uzB Ib3tchhoN 6ynFkqnznM RKtEWwgOP LlNiqlpIcQ Hr11VhROT owHsWC6ZHn 4cxOVBuDV aV82FoDLg7 Hn29ShKZn q9vQblu8sR S71xU+i3r xUJ4+VbKej E+g4g3bKx 3xKaN6asfc ZilnBerFe CQOv6Sgpjj Xn1OFB6fH ZWKb9X1MlW XWVntC4R3 a+5Q/QaeyH dES25IzyE 8oqSsFwvXp K32QE4Fbd J7EbC/xR0p 78XCSbSEU A+hp/HAtF4 f9X1SNMGA Lt57Yk4A/0 rCezG/sPB shFX6Rxjjq Sz9MotGd7 GfoAnJp20h 7cjquPeOI Wh/ZQ3U/so asMePrNwh WjLjrvcN4b DPWE3tZJL WlBTv9sGdy J7Y40CAjA 9GGVpujVrC wn4Wl0CzQ xK2i/XB3B0 5ti4JGBt0 lcLr7IIAz1 QJJ1pj9hI 09lJc3IVLJ ZocMNkO5q WrCQnXxbqG Fd+INcTyb 7guhnpKwnV Byqc4SmnL vEHQ3LUjJ2 6qOK9KoAb myzVKK4/mooney j0sSFrg11 GVju8VZJmt HIBkqIm7s pauQIXhW5i qrHO0Gwy+ vudsiqirqX XzR1psCAq 2Kmjnrzz00 zN4pc0Hyb HrU2a9+PkL pOZRt9Xzk mF/rviN79P rn1uaf9bZ 4+AGelLWi3 6lhPVitZJ gybC/S6OcF 6sRdokVbb McwvRaaF3n bbwumnvER quFn8BJ4e5 v1XmTSF1x Jjo0dyHfVW tmNBJ7xVL FLWINJtHic BqKmK9iHK mHWAnfRcBx qPMchBRIc J611sicAf6 iN0hhvdo7 fpuKE0Q3C8 BRLg5AAJb sro3NNRlSw vVm8HHAry miuD+saO4P 6/dPXSCLM ews6TQuj6K 9h9tDfMBV a3VS7SKuAH ml0BKplWl AVk6767pxZ JYVYpR9CF M1HNjhJ7eN OqmYsmX08 jHECrCbLwL Ni2FQ8ywM ByZT+4sCcC E3wpuw/7e sV0sf5utZ1 Dt/xX1MXC Y5U3OpnQ4m UK7fRuWWu EY9ryQtA4Z yZZKWozzk t9m62UMzl7 it7qmeTbX PtO26jDDve H6hMqKoTQ Zqj7G7jN6b DanLvUjET 8bhXlw/+Mb W4p2Yytk5 kC8CC+ezay RbvY2nana Oq9LTIm4P2 V+kUprgGj P1lh0SXkWD tSTcaXGMd djmt062d5l U8BJslKvO cOfFMaonE7 yEFzKs1Jb GlHqnDaHUO 0bchKQmhD JrSD5MF1r2 MlGauQbro hvjW1Qro1w C7GkYSevc T/vJ1PPF5z 9osiMnwPo sbDNThX9fp 0bnJHNt+R YZKZVdGzTP JNx4SrVt2 qOFzB3NTeB XQrYYlel1 4wo7rSNUp3 qAD5wxAgI fms7o0vZew OllatgWA0 tPSBbEFrbF QDJLGJJZo pGn8rsgmsa 0EqFwVJu2 NBOn27G5AY nffLX6LLI dYgMVYeLRb aYI5ha+Mooney DKCttCuAhE RqvWoMl3b 2/Hl1v5Mjx 7q8rsF0Eq 2Bs9djrPNL 5zA1sXTYM LhgWZ9bRbL a4PW6MpUa xCyglruIbR AQjn4bm0K JtOPispJWw A2XCt4IGF YeaZNo1hkX Gj9eSCyYu CFNBcTQN8v gJtacM+uH GDtkZ7bQn8 yFjRZkoH2 3TAQ1vs9Zf oc/Ab1DnS 7YeYOmH61K gzvaaFapF Qc+Br17AwB FSLqCxQLR AUxN3u7rt8 74qefWWpF tfRCUyLUXb xttdGlx5T lCffffvt0O s6OjOtVVP 7AcVuV2HWD 3N3AaoKnY koGYAhpYSV k2JUGxPo6 cFor9rVORo SUPbIJIdn xP4vHHkJMZ sSpsXWgTV J73NFlbNCk pBiPYEUUi xhWkSpRyad CqTQJEOSI EpWLUqoFsc EkgRRKMOF HMoSRMMyEj Y+OlctBvY g2QvFzQwEV FGOlBdWYF zBm2a2Nz0d lmuIN4scp 6lGZGoSyBb qXryLA7U5 AJcs4hI5sz mDGKT2bfr M31LEvpAAI t3KyrLTFR YtHgiNJON+ +PP1Rkyb1 kyeJD35lv2 J26FamjZn jwSuRULKsi 5wLRLSeCr n+epMRE+/A bGmgZii86 1UpDwRi8uR xjpZqkX/d UQ3ILU060n KTIt+PZ2F I1nJ4wABOM C5ezxNwfL nMAX8UuksT mdYeyzZM7 TAJGSLk+VZ nOr9Nc/iv Zw3v02GSXd +RCaDpL6w BsNTUoS92V vXhE4FmJp 97pDRJQ5rO 2D3qePsnE aEwhyULNvi oF83W2IuY iveytCGve7 bJtuiLNvi 8Wp5nGsVTt gurV7qU6D TD86WXzGgK rXccQILX4 KeGBaXiieG 5uS2kQr1N p+8XxRZiy2 rl0AsERHL YRsJla/lFb scPVyyxSg dbGoSyBYJa 03YekLlXg 1Jw6I2f5rs vobnSFhLw fDuLuAdk1D iSZJDWI1d ZYUqeWUYF/ 3oYVykyjS 1HHx8MKF4P 6OQstTEc7 D4MGmJP37w iocqBQqdm 7JClQgHnRs qE4Jugioq 0VZNuJIvL6 VlpNKeKw8 6p9BoRe07z yoerRTYWs LUUMWMb+Dg v0r2rAyzg poNrURpqwm bd6v5dtxv LQPo2X7UMd 5Ne1UQcnL duNfAGvVUk 7N4Ax8fsA qnBhDoFgkb /UosypG/s zQTOKs6eBX aSnJy0sJZ it87OzcsHD iD7Xvoyzq YSmfDsJTB6 3UMC+9qpH YG+yukDBJL DQjGIi8xY aqU+epMRCl 9BLpFKpWa UPtuxkOVYt Q3K5Th5PJ ZApXEOO6Ho Iv+i6p6oF OcOg472x7d bDoRDoUmP JsjRG9vD03 oAqkvt3mY aTbaT+FlsI njMGzSs9u BLKSNbs6FK qPR3QZoEC CpPtPaA2st JNWlYChDe stbKWgGr8b KK59JXIYb S7ksFXTf2r QZkVVCoFg RXY4GYvucs gv9edZRVW PjE1GCQAoQ ovieyCoh4 VgM3JG/RpQ PY9SsDOaH hdLSy408a8 mdoouNTrr /ZsGihGAxc CfbkfArOv HcGu35VWQ8 94yAXM2UP 8ATcvQ3kKA L0MxtkgEx YV4gHw3IMn SZKvOoHYr FhaFYDDzpw aRdAUpEPJ tGYHCd49o2 mMKwGKUrQ Ml/HbQVoES lqSFXLAb2 ynvC9dJ8TU 8zITz0gRy tPuZ0Nfo3k oFn8oE23h UKuaJ/ESBX pFLSSRjKn sxx0JnDKgF jR0XjMe+q rfHEryE/qL kImbSrY0A JXcvjP1s2J pkUSItoBH lIFf8tTE6M Z5fK8uLjp a/SUmiSQLE E3gpCJCpM u5CUF5lSEk K8zBarbzQ TnRe/CgyLV MqjafPQpE BalCphWETp oKwAEobFd LyyC61vntQ xNBsWJRsW JRsWJQyLa5 KoeWhSIJk PBYZFKuWHY jcsrtmbMC wdHE8Pt4iL 5GCfsIRhM IzeU2IRWBI KY74UnYJW Y4zXfmXUMR sIOLLcD3b 5kcLOqQ+m1 KchtE2pGa JJKWFFUkpY n3xbTRhr8 KtNej8Cqy4 Rwq+4rgMX LAZR/JMhvU KDBNd6NdJ m5Y2lXEn6y g/HYiCNqd MjRM0COxUe 8SGllS3fi ViMUrpHSgp NEhgWCXlU DcNiID+kii ACKnDwrjQ 3pOlpGIpFH p0cOGQBrK saXY0wvoXc ouBXJDzp6 T38iuh/59U 0hvtdqsCv GBdBZ3+FwK 4E872QMTC 8o2VmohFPq vY5o3BF1z WnIOBw7pFT FddbMsMrJ jfy31qCLFR 1TD9iuPg1 s0YCJ9PcFa uuGKZyWXr XHZ4uQtqUF 3pcG8/190 pfdwDKJSVf t/HlVpwVV gnpeiD32Wk 9c8YMwlJh FhjJBWpFn3 XQDmZa1Ba s3DpmXCOe3 iiBWtE/ZD 1/0QoHPgnU ilFaKPDJi ERNooUfhJd ZccNoaa+T Ll+tGFPRiI mkYEf9T2f kyiRqEvWop KjM07+aop IEfkXClohn abWa7C3uW GOww8dOLk4 idEnwGBxI s03KdIkhaF ZB6kp8CeX lm3Bh2RNoO pIMydVkSK 4mgV+RKo8z 0vPjj9miO CWmzVZMP0Z qpuOtrReO SNgxZ1Rhsk RIRiiBXZF KSSUhOlglY emwCg35y7 mY4bK0VEXa VohyUJIRB MMK5jVqxVX REYZFwnIm rNTlfnCgry EPdKFYjG0 hoEmPJPY1u h8hUkBVjX jd3GSyQVrK lGRHekoJa 9cZZUd9nKE AyrIjPWWF wD8OWQGMyf KoJAHtXD4 QvyMC4CuJg XZMklGXVH KyUm590tG6 0AQV146OT krQaWoEfsV Q5rbqFt/i ZuN7KFbgab P2P8zTFr4 b9h2hI/ArR h4GRIg30Z 8oS4RSQO+3 PAdEgh36M r8Trl5Ebls EGPdAQr0o RwQUuuixSV J91LVJoFJ rK1ZXGWIXt qbAVhMKn+ QUniRQKwZO /hvvbbGfi ii5qQAgGlN 4o6xO8Wo1 Aggp8guKrb +4LcICueK mvQRWllvRr 1/NCj9iXy 22H8h62n4j 7Gs3ZKB8D UKRhCRoMiR PyaBxt9EV KXpGGm6ltP KQtFRXRyo dJeGkG/6o7 JQwLHRfHi kfrKxqPuqM ymFQhuSuM BNG8RNFHfq o6y0OSA0p fvPQINg81M FQRjuWWIa lGNI8oRJmE tTu8cFUNr CRhVyPnM6O Jyh9fMiH3 RAsYkNNw+n QNJwOZTOT DGUFlIRhEd mW36O5Hpb FQEmkLSGlx pMQLAJHGk 2NnavnP93Y FpszF0CgL Ydf4ZADeyk VGxZROill nRGPcmFYDN AnPmM96VP 5yFfmwUG+4 n8IIP5nOH aFtzx05bT4 XtFpDMXiu hWEYjGQYol zwwp45LY5 6cQ472c6UA Cgok+FVVA CxSKVcpTSL ZPcCeA9ck zaF6pAXGtR 63aR5SOdi XXLdrliUG8 ZF17fjang rdmNmQOUQq 4YSLlgJeS Pw6Yy0Lygt PI4cSA08P 4qeCAAB0Wa iZRjGtZ12 wzpD1ujA7/ khZRGTmBW 9GdKmBUJVx hRBM5QkdZ 1PPwrl9VQI 0PAvh/SYV boVwhf4n8w wUmbVhtOn ebJQquI8+d aRXwyngg2 sNDUHrSK/j lfwJq1LmZ PHTRPGtC0q C2SCQwtgW hXFzMZ3iCY eDwNpFWvh oMGjZmClxV nEcbVCR8F okCH43l+Jg WG7YEaZR1 Tq8SUKAHWG IRmqYjL4A hqWGfCPZgq rIqbRqFmT pp29wLqo4U F1lvrY7KL C9lMIPWEZp Oo6IVz/7j Rh3P6D1QHp MyRwqhIuC RQrQGX+n9O 9FGxPOPm5 LDMTpdPEXZ iMZpDvU3Z LrT4J/WzcM Wkvln29XI hGVnB5Syw/ py9BN9FIJ tXGovFM+LN KqUD8EcoI wQKIVPGYla k5hWvjjYP 3qQ7UDOB7P jdAi6UQaC bJcEpW0fIo d0ozTHrEr qciueKnFI4 FaluHzHdp HAqFrTqYUk BREdE99nK Q4ADdYXnV+ 5HwqIT2iU vHoMETbqci wxxD2w6LM xgj00sC9zm UDR8R98Jd RhflMlzvYa Rrp5Cy0Ug zNxxxQqnou 4GJzMG1So b6hhe0XzXQ zAqEtJaV4 VRkfDsCev+ 9sKouClBb 0xj/yDVs5B CQs/CCiiF TdE/TtgUCW Rcwq1eUz2 RZQGUwqZIW FNdMkgYkk BGaZmWEc3l bNvYVKHwK Ukyyx6eWpZ IGFIKHYVP kZAMUHrun4 O2ByuOTTl zjUKoSEip6 GQPPcrW25 BUeWrJbr32 eubXQJJAa UaFdV8Z/Kr NpMi6Ral0 7z0DBLULjc jYzoQiCXc aHaOdRkfhV TKxWQW5OO h7tKXSqnZo kZEaGWgk6 zNfBWYT0Zo X0RzTmWWP zUzEOwWOki qTnEnLQXI bQ5j0wwHoU kpNSHImLR yLZLRjkbR4 LBKqnuyAU coQw06vLZb ff3YAZxnj xKlwZwvind CkRyIFUiS GFdhD0zHlb 1LxVIotPQ 5p/WooHocU dAIPbk5eH KaQwtW9QZV gJaUzrJIw H1P9GSjJ3M hX1F8oRYZ JlYXlTwqXI mGjUyxsDT bcXmIjmuJV qZS2tyPTr oU8xAHoKuR NGPoeJs58 gK1oBxj9A7 RQM3jFA8H Yvn5QojBgu M+saAgVUe pKMKDDE9cr O8IrL3STt TspT60LvFX UdL5o1AtD RC8KUzr3cv 9UGdbC8qJ pTXFIGkLFQ Yktp9rxZG NpPXgsrUca 40KmGHjuv gkN0aY3FOO CeRUqRcLU muiV6scSiL VEnfjb4NM Zh+xwKQYOu xdlo3hagT zLSNhyZekJ +7lSNHxD1 GLSmgKRFDp Fwka/VqBT 9Eu/Nlrpak WcPM3hyHq Jqi4f7RYej fBTqaFIQo ry0RBgPoB5 mGTdQHw0E UskGXUmHDX lvw7Zpcub V7vcFmzpFO cqBpKLSUO vzO4r6ZAF3 z4Ed5CFvl hZqahQKmJO QaFUxIyDI fmJDcnFpEu uFVWm9OAL NPygD5xWNX DA9ctfFPB Fg3mcmHvY5 HpNKmnzOK MnELAV2RRu FA9Wm3M5k cUojIprosa oFKYVhOS0 zj5WshT5eu twxTrFXin WSVthDZNhO nyP1uCITA uMNs/yevqm FIVkSFFI2 ipbmDRsiut 6CZviuppg U/WtzdK0OQ mrG194uMM Gx43K82eNm vy1XUWGQQ bDwCg43SJL sbeylh7xb QIlPZuGTDG QBMWGFIek kCkiskEhU0 Rnnm2JSrQ HIQVSGJJhL Qlp8Y+GTB HNano+bcpx sGo5fl9Pm 4AF6cWBsRw xPr2+5npx PET0HGnwmg 41YwSZol+ rj7OeT3KhA qH8pIMbUt tLD2hG71Pw 34vLdMkUP mmSu44lBrF DC6/UdGWl vdPLp+ip54 lgkcw49Dd w1Q49XTaCB wKOGX9gqh +yM7S4p+tp cGGhfkOqO Jk6cDFMSLM qM92qJhzA sCO1b/n++x pffcIIRkW sgVMYFRGCp EIHRG73HQ AQs00ZL0DT ORpSxcAyE d6zGZhujCE IQ15I34Pp fXi1gUDo+n UvHpIUKNz h+ozZQI7ko K2mNWAEMh IoTnhOPN6h OskMsZM8w BAqRrMpJsm QW52ahLep GXlyOYSKvl +c2DWqlXX KLdNIewK0f UuRqmpPuN +jdokfj3ZW MkSKm/arU yMpTPTqVKF C1VCZpkic iiu0SaCVu7 RIsUiGJGJ SSBSpdCQiD 5PKZA+Kuldip GfhpJCkRQS RSolEZNCo kdUbCrHe4A 6QCKxdgWJ LqL3dOBAJY TzZEgiJkN 2b7gGZFtav cInhUSRKv Ooqie/PDUk a7RDXBNcw TDV0LHZWgA p8UEhcynx rkwxTwqJYm Pmz6OC7Zb UsNZUmhqqu wPQK9OZ1L g0mgalNhG4 pwqLImHrC ZV+zaqHJK2 fr+ohSUAP VLq4obSAkn QiOC2IRVa qkozJcPB+N LeibJJQeB QJt4/JSPgE S9dRURzqH cExDs8OoX+ NByQFCp3/ ocxneDok9H GsbzBV7NC mMlNVCnvSp VBkpLAnVY 9GQil/ThOz jsl7xtiLs 59N8vdkeie 6MlDuv4b5 cf/NcmLtnu y80RJ5dN0 T+8ELcwzpe m4qyTBv9O qhTgykhTmG tGDGkAwSu mjWxS14zfL t7PC4zhNE a031PvVv0L QBrfh8VaM Z0A6o1VydQ NprGkShTi HzmZGAR4t2 MKQopbhew 0m/uUOeGEi CQp0sCG1v REPSRxiOvK pYihTL8Bc LqAv0vmRLk dB+ViASIU kqNNSJODp3 JwaWmpCMT HoaqDb0GBk Rak4+4Z19 RMwzVYm3DE l7IvluExL 4YUUvpD95j VGugUphqp qqSiJtCbeS ScOduMjVi wtRRA8Tlrl OB2eFPUT7 JuwjbTvphW t3UrouAXB zwrDRfsKc6 RZ14NDTqw CT1+IYkoLf fMa6MopAa gtE9fFOj5D 1CiT6BOeN 1In0H220GG 1tohcqDUr LP2ZI2HOgK CSgBygHrm p710fmLR4a r6zzFTcLz uw8IQkvFg/ qaaEP6JNN 0lUSBH8HxG AuVcRH4Kr 8GkdHSvJqu CXr2ONWcI ZRMlmFQJGw Vzo+T/IK9 CSvgSefZXY oKhyKcRUo ci9dpHndcB MH/bYffCV 9IV8imv71w FXhUCTkx9 IQ1WCnrV+l CDyFOIZ1r giHIkzDhms 8zqw3LEVB 4ygcioSrlf HKGQgb2CK rPkOKe2TR9 YboxSXC12 Wdmi2B0bxQ JmKdKxDJC +aFeSTrX2f UqVRoeIJF ce+Hn3mblS B2UtWPB2G F0a+IZVH0y wUWRUKla3 iuWCQEoCks gqa67xOgR LqjSNcCsXm sZRcY0zBw M3iawlg157 VhukSKOyJ nmRRtdqZeZ /1SKSYsba n7M76ryqdD Ve11Cr8F2 C6b4hQ/t9c GCPwiZ2oG bs9mAiJ3ie hfK8+rz7n MKzDJwtFBN c4WeG8WQn p0zRIq+lzO XGleT+/yS uAl3Q7xLoR Xnv7hCYEJ fwkVN/VJF8 4KSApUNON UCaSmH8Vg5 XdkejhSFK 7njHyy5A4c VCRcYU+Bl na8UfQfyup pcWC77HL8 eENL8ZNp7I UBQ7RBFrW x7Z6CgGHLA UonfcvnhI 8JpRNLULHt REOBbSTUk fibgjX5hy7 Hpn4Dz/ia z6yBY7Rzmi cAqN39Hq1 8JuGJZgLPk iOB4wLGhc 6BmurulAId VkWngoWu4 qeMqnfAC2X ThNxmwYLa 16OigJmF5L iI1mEs5IX MtuEXc3sbd mqOvqlBG+ C1LxOvwR2U BlPfP+4NB 4BS6NA1zyF AY4QIfmkC fp1CXDi97x Aoel3+E4M d6xpB04JVg L7mZLfbu3 oBrECKZk4S SVHYeYLXs W5nr4mju/a AdE30nwuZ dm26D6GeAa fNZqxrI0M p0krmP1XSE DXa6V58In RNRej84Q/s 4U+MQh0JR 3rU72u0CsM 7FigakinY aJp1pjT2qN eDYodBMXZ 9hyzbgE7RY mabWU98tk xhUKTSPdXb A8M7xKVB0 ENH7xQx2ZA aDoMiVVZN rYxbmEl3bV r3FdQLJQG HUzGCdtAeQ Q07SIdXN8 psVpN17JNU A35rzpwOZ zpDiQHISPe V94c2fLTD BjCNig5Ns6 GVHxh1oid K0OXDOVro9 MdMS6GpSz kqX/FIRLUl wMkPX1r9I RHLHepEKp0 n5WbMDvhU VjuBbSTUXL soCz9ZpZ8 ufnIi3B3kt CRCPVPlLq i7Qc6kTkB0 EtaSsHGPr 7Xucc2FP6Y DcaKXlhWS nPXBH7QLmS zN5lYwM14 RK11otmFWx EcrJGlTPV PVJgllJuyV Az75DCITr +SFJbVyGRO cz0lBPTua 8lcD2sLaMA k5XkrSwnK xMQEe6P9Fa oLOT3yvSF CdL4IQeJ1n AUi0JzYAN NjPhEMSzrn hCnBS5vLP tdQRTndQ1I e7Jl7Nth3 gsVRf7st1F lp9XV60uS 58E/+jV1DU riHHepaMG mVcEpmoUWZ xs1r1qe3T uxeUBQjA7c NcWqNdfFz eg7jHPm0rF qfMNf/xzY s3MsyUbFzf 4/D/8eNw3 Merry/4njcN7 H4f/jx+GM 4wDGcXjxPg 4hrzPx5Ly pXQc4ILE3I eA//CCA+x bLl3RfYFpK 4D/8AIDo/ 9ViGyr972Z OzoN23+1F Rn26xP/+ol v7KcqO5mk hilV3mikUp DloWunL5H 4JiN/ga53p Z8aaU02xe sQcfHtvT3V h4FQp8EYs c0XPYm9eix Su7p6o3rM h8GGvKtDCX jhaLwfmSd Elma/Bq8Re8 80u8VIj9E OEY8JPzscM +jD2RhBX1 G7za+wXH7l bzjt+8+OS P5+2aSH/9w 7pqh22j1k 6nf+ftvEwG Jvp7+mn1+ u2Lf/r67uP 9P7/+76hw PfhS+RQuxe KWLCcCY39 oSp4nqUU81 yIO5qp5EP DK//Prb77/ deu7vB/Pb H5c7/muzV8 /0/ourr38 elDwrXKC8s /2ttzac1s 4jL6Fm04uz bPyly8/+5 +DFm4tJcAW evNwnaFfH A8HwlrK09u 24eycRt5C c1tbq7uYvw hSQ19u4ei /TKUvz+vYv zh1gNZUP3 +Lyc7y3LWj u9/97vbV4 +P72/d3H+9 uf/3b3ZuH jz//y+3h3c f79z++v/9 49/Rd4k1j3 d3Pt2/vb3 ff/3T//sP9 m59vdz/8c P/dx/v0Ofv H24Vg1gO9 m7qswq1p8y 3tw+39X37 ++Yd7x56mZ 46mBr46jP g6yr7zO6i/ 4albD+9+u Hv/5pfai6q u/nx/+9u7 7++fCt4+vH u+4B4YdTi 47uWHH++/e /kq6izx27 vdt++uvjwd 1MKg5lPo8 ePt6bB/enh 86vEXn//r 4w1nx7q1x5 dhW107063 j2x/v3j98e Lg86Q02Ip XSl8aw1/7x 3cN3d2+ez tY3D39+6vD rT54a6iaw ZTmKybU+Pe jiZ0b16Lf Xt29/vn129 /7jw+3zu7 c/Pt5uf/rD LT7HZ7/x1 jzwds8k18+ 9ffX+8aeH 7+/rw9rxk2 57pY/8T/f v3/n06wbag x/+kk6G73 R/fp//6esv g7iZtjWG5 8U2eod3y/2 4XbyBa5NF bfcn+dy2/6 S5aDvw0hB b/qL0kz/W2 2VuejrBv/ lYsHiu0hD0 un2G6+e6J cP60VPbMr4 9+wV8Mb4w v336wH//86 e/+mBvx/z vHN5NV3Sxm 4saA4bmmy vj++xzkZcn 98F+S9i45 lXK0++It59 1oI64ihML e7KYJaZxfp f/wp7KGbO ZUUuP/7td8 SGzb61GLD d/+1/01VZd 9Kdu/f0Kr 386oeVagHC o43YkjFN9 vr9/GrP+H0 D+ujsKZW5 ap7WlLTEcN bRsTZ4jwk q5ZRGoi7Co Vyk4L0E3n GUvUGFnZS9 NZWRpYUJv eFswIDAgNz kyIDYxMl0 fZIEuLN87F DUgMCBSL0 NvbnRlbnRz IDQgMCBSL 0Cjo528nuS zvsb4U2Eh tzF5BG1JZi AzIDAgUi9 GMiAyIDAgU v6PZNHhQV AgUj4+L1By u8AYMSHrW w0RQKWtU5P kuTOjR9ea YWdlQiAvSW 1uD1MMFS9 JbWFnZUldP j4+Pgplbm RvYmoKMyAw JU7nqco7T K6QkCKxJ0K frrDfS7Gb sIbjJF0ZeQ PbQY0LBBB qYa5bpE1MC Ls8EOHlW8 FwNq2kUZ6E bmNvZGluZ u1YaT0RzcO tLI2qa3Qe bmc+Pgplbm RvYmoKMSA bMU6xyym0L C4JhETgH1 EwjsNuK8Cf aCdpHI2Mj NAdYL5HAJM hHr8xcS8E TUc4XQEvQ4 CyWL3yb2R kssclK0udU U1fqEHzC4 1haZ9dCe8V TD0av2PsC jIgMCBvYmo KPDwvVHlw AE4Rm517E0 X6HrI7cLY vVHlwZTEvQ mFzZUZvbn ZtM624wnfm ig0XihFzZ RxhJk1KvE6 FncAwIL5h k1Drtyg+Pg plbmRvYmo EBGNdCF2ru sf5ZW5TlN WyN6HsW3Hx Z7nVLXCzO M0nLgUfV5d pZHNbNiAw QIQqG4RfsO 50IDE+Pgp lbmRvYmoKN jBlQN5wki o2ZH9ATMww auG8XXQhY r4LuBDeT8N ccZGqg7h+ PgplbmRvYm oKOCAwIG9 vqco4DP4Yd XRsZShDYX DtgM7hD0Pn dmVyIDEyL KlyDWDrV1k leXdvcmRz KEVwaXBoYW 55IEVDRyA hOz1ALKMiF VO2xWK4LP 7UhhLovN1v KEVwaXBoY O30FTQdyfE pbyBTZXJ2 RVMiC8Vnr5 R7B7NoCVy DINg4K2fbb fGaZN9wXu YgYnkgMVQz YHVsR2IfG JM5rY6gGFN 0ZShEOjIw MjAwOTAxMT AxOTEzLTA 0JzAwJykvQ FK7gT8uPH UpzRLpSW64 IENhcmRpb wXSIDE2PTS lM0X5Bgid Q8EoC9RaOA lvIFNlcnZ leyQtDp5EQ NImQK1Ql6 REYXRlKEQ6 LxHlCQX0J JEwROO0LNI tMDQnMDAn KT4+CmVuZG 5pjot8bfG mCjAgOQowM DAwMDAwMD SsUJH7LHO6 IGYgCjAwM GIwCzk3VzT gMDAwMDAg biAKMDAwMD P4Rsr6PnM wMDAwMCBuI AowMDAwMD t0VawoESBq VMWbJG6vA jAwMDAwMDA wMTUgMDAw MDAgbiAKMD OpHUD3NTS 0OCAwMDAwM CBuIAowMD HzHQo1OrO4 IDAwMDAwI V9jFfBqCDL wNzgxMTEg MDAwMDAgbi AKMDAwMDA 1LTR2SbDyG DAwMCBuIA a3jmKymFMw Rxy8M7Ysz lFwNO5KwcL vIDggMCBS R5gZDLo3CS KgGfP3RYm wZDJiMDdhY jF1SsU2EA hmZmJmNzBm NjA+PGQ2M PWfNhV0Ygs lOTliMzAz ZWExNjRhZD DaDEL8HsO 8Yq0mCy9hm ZP7KDZbOw 4+JiD5VQX3 tLLaWze3Z ZV6HdwmEGZ PRgo= ID Date Data Source [id number] 11/11/2019 07:41:00 PM EDT [facility] [id number] [facility] Patient: SYD LESTER RA Age: 29 years Sex: Female : 1990 Associated Diagnoses: Bilateral lower extremity e gerardo Author: Angie ALVAREZ, Ivett Pantoja Basic Information Additional information: Disha f Complaint from Nursing Triage Note : Chief Complaint 11/11/2019 14:54 EDT Chief Complaint pt [place], c/o swelling in bilat legs, worse on l side with pain 10/10. pt diagnosed with pneumonia 2 weeks ago. . History of Pr esent Illness 29-year-old female, presents the ED for evaluation of bilateral lower extremity edema x1 day. Patient was seen at [facility] and was admitted for pneumonia fo [...] selected or recorded.. Surgical history: Gastric bypass ([phone] [id number]) on 03/13/2009 at 18 Years.. Family history: [...] Therapy Room air . General: No ac jasvir distress, no verbal or exertional dyspnea noted, [...] 43.2 % Lymph Auto 46.2 % HI Williams Auto 7.8 % Eos Auto 2.5 % Baso A uto 0.3 % Neut Absolute 2.1 x10(3)/mcL Lymph Absolute 2.2 x10(3)/mcL Williams Abso lute 0.4 x10(3)/mcL Eos Absolute 0.1 [...] unremarkable.IMPRESSION:Normal chest rad iograph.Thank you for allowing [facility] to participate in the evaluation of this patient.Signature Line Final Dictated: Jose Luis Tejeda i, MD 11/11/19 16:22Signed: Jose Luis Chino MD 11/11/19 16:23 Transcribed by: [email or web address] document has an imageResult type: XR Chest PortableResul t date: November 11, 2019 16:17 EDTResult status: Auth (Verified)Result title: XR Chest PortablePerformed by: Jose Luis Chino MD on November 11, 2019 16:22 EDTVer ified by: Jose Luis Chino MD on November 11, 2019 16:23 EDTEncounter info: [id number] , [facility], Emergency Room, 11/11/2019 - . Radiology results: [...] thrombosis, both lower extremities.Thank you for allowing [facility] 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 Unremarkable CTA of the thoracic and abdominal [...] Kalin AlMahon et al. Radiology 2017 284:1, 228-243. http://pubs.rsna.org/doi/abs/10.1148/rad iol.41924625725. Multiple groundglass opacities in the right upper lobe and ri ght lower lobe, nonspecific. Infectious etiology not excluded.4. Constipation.5. Postsurgical changes of the bowel.Thank you for allowing [facility] to participate in the evaluation of this patient.Signature Line Final * Dictated: Dimitrios Costa MD11/11/19 17:31Signed: Finesse Costa MD 11/11/19 17:45Transcribed by: [email or web address] document has an imageResul t type: CTA Chest Abdomen PelvisResult date: November 11, 2019 17:23 EDTResult status: Auth (Verified)Result title: CTA Chest Abdomen PelvisPerformed by: Dimitrios Costa MD on November 11, 2019 17:31 EDTVerified by: Dimitrios Costa MD on November 11, 2019 17:45 EDTEncounter info: [id number], [facility], Emergency Room, 11/11/2019 - . Reexamination/ Reevaluation [...] was pers istently asking for pain medication. Rockyaxin was sent for her discomfort although she was seeming to have drug-seeking behavior.Strict return precautions were discussed at length. Patient verbalized understanding of instructions given. Rolando alanis was discharged to home.. Impression and Plan Diagnosis Bilateral lower extre mity edema - [id number] R60.0, Discharge Plan Condition: Improved. Disposition: Disch [...] Supporting Document(s ) ID Date Data Source [id number] 10/17/2019 08:14:00 PM EDT [facility] Name Value Range Interpretation Code Description Data Grace rce(s) Supporting Document(s ) SARS-CoV-2 [facility] RNA Resp Ql LAXMI+probe This lab was ordered by [facility] a nd reported by [facility]. Procedure Social History Code Duration Value Status Description Data Source(s ) Smoking 11/11/2019 Never smoked completed Never smoked Bk Jovel alth - 02:59:25 PM EDT tobacco tobacco (finding) [facility] (finding) Center Vital Signs ID Date Data Source UNK Name Value Range Interpretation Code Description Data Source(s) Mean blood 82 mm[Hg] 82 mm[Hg] Farehelpertimber lakeDomosite pressure by - [facility] Oxygen therapy Bk oJvel alth [Minimum Data - [place] Set] [facility] Center Heart rate 90 bpm 60-100 bpm Normal (applies to 90 bpm [facility] non-numeric results) - [facility] Respiratory rate 14 br/min 14-20 Normal (applies to 14 br/min [facility] br/min non-numeric results) - [facility] Diastolic blood 70 mm[Hg] 60-90 mmHg Normal (applies to 70 mm[Hg] [facility] pressure non-numeric results) - [facility] Systolic blood 106 mm[Hg] 90-130 mmHg Normal (applies to 106 mm[Hg] [facility] pressure non-numeric results) - [facility] Oxygen saturation 100 % 94-100 % Normal (applies to 100 % [facility] in Blood non-numeric results) - [facility] by [facility] Pulse oximetry Center Mean blood 81 mm[Hg] 81 mm[Hg] [facility] pressure by - [facility] [place] Oxygen therapy [facility] [Minimum Data - [place] Set[facility] Heart rate 89 bpm 60-100 bpm Normal (applies to 89 bpm [facility] non-numeric results) - [facility] Respiratory rate 14 br/min 14-20 Normal (applies to 14 br/min [facility] br/min non-numeric results) - [facility] Diastolic blood 63 mm[Hg] 60-90 mmHg Normal (applies to 63 mm[Hg] [facility] pressure non-numeric results) - [facility] Systolic blood 116 mm[Hg] 90-130 mmHg Normal (applies to 116 mm[Hg] [facility] pressure non-numeric results) - [facility] Oxygen saturation 99 % 94-100 % Normal (applies to 99 % [facility] in Blood non-numeric results) - [facility] Pulse oximetry Center Heart rate 92 bpm 60-100 bpm Normal (applies to 92 bpm [facility] non-numeric results) - [facility] Mean blood 91 mm[Hg] 91 mm[Hg] [facility] pressure by - [facility] Oxygen therapy [facility] [Minimum Data - [facility] Respiratory rate 15 br/min 14-20 Normal (applies to 15 br/min [facility] br/min non-numeric results) - [facility] Diastolic blood 75 mm[Hg] 60-90 mmHg Normal (applies to 75 mm[Hg] [facility] pressure non-numeric results) - [facility] Systolic blood 122 mm[Hg] 90-130 mmHg Normal (applies to 122 mm[Hg] [facility] [employer] pressure non-numeric results) - [facility] Oxygen saturation 100 % 94-100 % Normal (applies to 100 % [employer] in Blood non-numeric results) - [facility] by Hospital Pulse oximetry [place] Body mass index 27.7 kg/m2 27.7 kg/m2 [facility] ([facility] [Ratio] - [facility] Body weight 73.6 kg 73.6 kg [facility] Measured - [facility] Body height 163 cm 163 cm [facility] - [facility] Body mass index 27.7 kg/m2 27.7 kg/m2 [facility] (BMI) [Ratio] - [facility] Oral temperature 98.3 [degF] 96.4-99.1 Normal (applies to 98.3 [degF ] [employer] DegF non-numeric results) - [facility] Oral temperature 98.3 [degF] 96.4-99.1 Normal (applies to 98.3 [degF ] [employer] DegF non-numeric results) - [facility] Patient Treatment Plan of Care Planned Activity Planned Date Details Description Data Source (s) Methocarbamol 750 MG Oral 11/11/2019 06:11:00 [employer] - Tablet PM [facility]
--- NOTE | 2019-12-28 20:25 | PDOC ---
History of Present Illness - General Chief Complaint: Edema Stated Complaint: FOOT SWELLING Time Seen by Provider: 12/28/19 19:44 - History of Present Illness Initial Comments: 12/28/19 20:36 29 yo female with pmh percocet addiction and proteinuria presents to ED for left leg swelling an pain for one day. PT explains that she has had left leg swelling on and off since Nov 11 where she was diagnosed cellulitis and was being treated with cephalexin. Pt was treated and discharge into rehab for percocet overdose. Since rehab stay pt has been having on and off swelling of leg where she has been treated for cellulitis. Pt explains today her left leg was more swollen then usual and more painful then usual so wanted to come to ER. Pt told nurse but according to pt. Nurse was not taking pt seriously so told nursing electronic maintenance supervisor and then was sent to ER. Pt denies any fevers, chills, chest pain, sob, abd pain, n/v/d/c, dysuria, or urinary frequency. Pt is currently being treated with clindamycin at rehab center. Pt also received "water pill" at rehab yesterday but explains she has not peed today. Pt does not want anything for pain, but she would like methadone for pain. [facility] nurse was called and explains that she was started her on clindamycin for PVD 150mg. Pt leg is swollen but has not changed since her rehab admission a few days ago. Nurse also explains pt demanded to come to the ER because pt believed she will receive more methadone at the ER. Pt is currently on 50mg of methadone maintenance dose which she already received this morning. PMH: Percocet addiction, proteinuria Allergies: peanuts, shellfish, almond PSH: denies Social: denies smoking and alcohol; prior percocet addiction Past History - Medical History Allergies/Adverse Reactions: Allergies Allergy/AdvReac Type Severity Reaction Status Date / Time almond Allergy Verified 12/23/19 16:16 No Known Drug Allergies Allergy Verified 12/23/19 16:16 peanut Allergy Verified 12/23/19 16:16 shellfish derived Allergy Verified 12/23/19 16:16 Home Medications: Ambulatory Orders Methadone [Dolophine -] 50 mg PO DAILY 12/26/19 Asthma: No Cardiac Disorders: No COPD: No Diabetes: No GI Disorders: Yes Disorders: No HTN: No Kidney Stones: No Seizures: No - Surgical History GI Surgery: Yes (gastric bypass) - Reproductive History Is Patient Now?: No PID: No - Psycho-Social/Smoking History Smoking History: Never smoked Have you smoked in the past 12 months: No - Substance Abuse Hx (Audit-C & DAST Scrn) How often the patient has a drink containing alcohol: Never Score: In Men: 4 or > Positive; In Women: 3 or > Positive: 0 Screen Result (Pos requires Nsg. Audit-10AR): Negative Review of Systems - Review of Systems Comments:: 12/28/19 23:59 GENERAL/CONSTITUTIONAL: No fever or chills. No weakness. HEAD, EYES, EARS, NOSE AND THROAT: No change in vision. No ear pain or discharge. No sore throat. CARDIOVASCULAR: No chest pain or shortness of breath RESPIRATORY: No cough, wheezing, or hemoptysis. GASTROINTESTINAL: No nausea, vomiting, diarrhea or constipation. GENITOURINARY: did not urinate today MUSCULOSKELETAL: lower ext edema. No neck or back pain. SKIN: No rash NEUROLOGIC: No headache, vertigo, loss of consciousness, or change in strength/sensation. HEMATOLOGIC/LYMPHATIC: No anemia, easy bleeding, or history of blood clots. ALLERGIC/IMMUNOLOGIC: No hives or skin allergy. *Physical Exam - Vital Signs Last Vital Signs Temp Pulse Resp BP Pulse Ox 98.2 F 100 H 20 113/42 L 100 12/28/19 19:30 12/28/19 19:30 12/28/19 19:30 12/28/19 19:30 12/28/19 19:30 - Physical Exam 12/29/19 00:01 GENERAL: Awake, alert, and fully oriented, in no acute distress HEAD: No signs of trauma, normocephalic, atraumatic EYES: EOMI, sclera anicteric, conjunctiva clear ENT: Auricles normal inspection, hearing grossly normal, nares patent, oropharynx clear without exudates. Moist mucosa NECK: Normal ROM, supple, no lymphadenopathy, JVD, or masses LUNGS: No distress, speaks full sentences, clear to auscultation bilaterally HEART: Regular rate and rhythm, normal S1 and S2, no murmurs, rubs or gallops, peripheral pulses normal and equal bilaterally. ABDOMEN: Soft, nontender, normoactive bowel sounds. No guarding, no rebound. No masses EXTREMITIES : Bilateral nonpitting edema L worse than right. Tenderness to palpation on left ankle. Tender lymph nodes on bilateral medial thigh. 1+ pulses bilaterally NEUROLOGICAL: Cranial nerves II through XII grossly intact. Normal speech, no focal sensorimotor deficits SKIN: Warm, Dry, normal turgor, no rashes or lesions noted Heart Score/ECG Review - ECG Impressions Comment:: 12/28/19 22:37 Normal sinus rhythm at 80 bpm Normal axis Normal ID, QRS, and QT interval No ST elevations or signs of ischemia ED Treatment Course - RADIOLOGY Radiology Studies Ordered: Category Date Time Status DUPLEX VASCUL US-2LEGS [US] Stat Ultrasound 12/28/19 20:22 Ordered Medical Decision Making - Medical Decision Making 12/28/19 23:00 29 yo female with pmh above presents with left leg swelling and edema for one day. Assesment: DVT, venous insufficiency, lymphadenitis, proteinuria Will get Doppler of lower ext to rule out DVT Will give pt Methadone 25mg just for pain. 12/28/19 23:09 Doppler showed no DVT. Will discharge back to [facility]. Discharge - Discharge Information Problems reviewed: Yes Clinical Impression/Diagnosis: Lower extremity edema Condition: Good Disposition: HOME - Follow up/Referral - Patient Discharge Instructions Patient Printed Discharge Instructions: DI for Peripheral Edema -- Bilateral Additional Instructions: You came to the ED for lower leg edema. This is most likely due to venous insufficiency. At the ED we did a doppler of your lower ext which showed no clots. We also did a test which was negative. We also gave you methadone for the pain. Please follow up with your Primary care physician in the next few days who we referred you to. Please return to the ED for: - any erythema or fevers - worsening pain - unable to feel your lower ext - shortness of breath or chest pain For any emergent symptoms please call for medical help right away. - Post Discharge Activity
[2019-12-28] MEDS ORDERED: METHADONE (DETOX) 20 MG, METHADONE (DETOX) 5 MG PO ONE (21:00)
[2019-12-28] MEDS ORDERED: METHADONE HCL 10 MG TABLET ONE (21:05)
[2019-12-28] MEDS ORDERED: METHADONE HCL 5 MG TABLET ONE (21:06)
--- NOTE | 2019-12-29 14:43 | EKG ---
Test Reason : Blood Pressure : / mmHG Vent. Rate : 080 BPM Atrial Rate : 080 BPM P-R Int : 148 ms QRS Dur : 072 ms QT Int : 390 ms P-R-T Axes : 010 021 -07 degrees QTc Int : 449 ms NORMAL SINUS RHYTHM CANNOT RULE OUT ANTERIOR INFARCT , AGE UNDETERMINED ABNORMAL ECG WHEN COMPARED WITH ECG OF 23-DEC-2019 15:10, NO SIGNIFICANT CHANGE WAS FOUND Confirmed by MD MARLINE, KATIE ([id number]) on 12/29/2019 2:43:23 PM Referred By: Confirmed By:KATIE HORAN MD
== END 2019-12-29 01:57 | disposition home or self-care (01) ==
LOC: JER 19:27
DX: R60.9 Edema, unspecified (principal)
CPT/HCPCS: 84703; 93005; 93010; 93970-TC; 99284-25